=== PATIENT | male | born 1960 | race Caucasian/White ===

== ENCOUNTER 2020-01-21 18:08 | Inpatient (IN) | payer MEDICARE, MEDICAID, SELFPAY ==
--- NOTE | 2020-01-21 | CT_ITS ---
EXAMINATION: CT HEAD WITHOUT CONTRAST CT CERVICAL SPINE WITHOUT CONTRAST CLINICAL INFORMATION: Head trauma. Fall. COMPARISON: None. TECHNIQUE: Imaging was performed from the skull base to vertex without intravenous administration of contrast. In addition, helical noncontrast CT imaging was acquired through the cervical spine and source images were reviewed along with axial reconstructions and sagittal and coronal MPRs. [This CT examination was performed using dose optimization techniques as appropriate, variously including the following: *Automated exposure control *Adjustment of mA and/or kV according to patient size (this includes techniques or standardized protocols for targeted exams where dose is matched to indication/reason for exam; i.e. extremities or head) *Use of iterative reconstruction technique] DLP: 782.07+748.09 mGy-cm FINDINGS: HEAD: No intracranial mass, hemorrhage, or midline shift is visualized. There is atrophy with prominence of the ventricles and the sulci and hypodensity of the periventricular white matter due to chronic small vessel ischemic disease. There are vascular calcifications of the internal carotid arteries bilaterally. No extra-axial collections are identified. The paranasal sinuses and mastoid air cells are well aerated. CERVICAL SPINE: There is no evidence of acute cervical spine fracture. Vertebral bodies remain normal in height. Cervical vertebrae have normal alignment. There is multilevel degenerative spondylosis of the cervical spine with disc height narrowing and endplate spurs and facet joint arthrosis No pre- or paravertebral soft tissue abnormality is identified. Limited assessment of the lung apices is unremarkable. IMPRESSION: 1. No acute intracranial pathology. 2. No CT evidence of acute cervical spine fracture or traumatic subluxation
--- NOTE | 2020-01-21 | CT_ITS ---
EXAMINATION: CT ABDOMEN AND PELVIS WITHOUT CONTRAST CLINICAL INFORMATION: EtOH. Fall. COMPARISON: CT abdomen pelvis 04/07/2015 TECHNIQUE: Multidetector volumetric imaging was performed from the superior aspect of the liver through the pubic symphysis. Sagittal and coronal reformatted images were obtained on the technologist's workstation. This CT examination was performed using dose optimization techniques as appropriate, variously including the following: *Automated exposure control *Adjustment of mA and/or kV according to patient size (this includes techniques or standardized protocols for targeted exams where dose is matched to indication/reason for exam; i.e. extremities or head) *Use of iterative reconstruction technique DLP: 1244.43 mGy-cm FINDINGS: LUNG BASES: There is dependent atelectasis at lung bases. The heart size is enlarged. Moderate volume of coronary artery calcifications. Coarse reticular opacities at the right lung base. LIVER, GALLBLADDER, AND BILIARY TREE: The liver is normal in size, shape, and attenuation. No focal hepatic lesion or biliary ductal dilatation is present. The gallbladder is unremarkable with no evidence of radiopaque gallstones, gallbladder wall thickening, or obvious pericholecystic inflammatory changes. PANCREAS: Unremarkable. SPLEEN: Unremarkable. ADRENAL GLANDS: Unremarkable. KIDNEYS AND URETERS: Right kidney: There is a 2 mm stone in the lower pole and another in the midpole the right kidney. There is no ureteral calculus. There is no hydronephrosis. Left kidney: No calculus. No hydronephrosis. BLADDER: Unremarkable. GASTROINTESTINAL TRACT: There are scattered diverticula of the sigmoid colon and descending colon. There is no diverticulitis. There is no bowel wall thickening /edema. There is no bowel obstruction. There is a moderate volume of stool in the colon. The appendix is normal . The small bowel loops are unremarkable. The stomach is normal. There is no hiatal hernia. ABDOMINAL WALL: No significant hernia is appreciated. LYMPH NODES: There are subcentimeter retroperitoneal lymph nodes unchanged since CAT scan 04/07/2015. There is no bulky lymphadenopathy. VASCULAR: There are vascular calcifications throughout the abdomen and the pelvis. No aneurysm of the aorta. PELVIC VISCERA: Unremarkable. OSSEOUS STRUCTURES: Unremarkable. IMPRESSION: No acute abnormality CT scan abdomen pelvis.
--- NOTE | 2020-01-21 | XR_ITS ---
EXAMINATION: XR CHEST CLINICAL INFORMATION: EtOH. Trauma. COMPARISON: Chest x-ray 12/31/2019 TECHNIQUE: Frontal portable view of the chest was obtained. 8:45 PM FINDINGS: Persistent slight blunting of the right costophrenic angle due to a right pleural effusion unchanged since 12/31/2019. Lungs are clear. No pulmonary vascular congestion. Cardiac and mediastinal contours are unchanged. No pneumothorax. IMPRESSION: Small right pleural effusion. No change since prior study 12/31/2019.
--- NOTE | 2020-01-21 | ECG_ITS ---
Test Reason : ETOH Blood Pressure : / mmHG Vent. Rate : 094 BPM Atrial Rate : 119 BPM P-R Int : 000 ms QRS Dur : 110 ms QT Int : 394 ms P-R-T Axes : 000 -75 051 degrees QTc Int : 492 ms Atrial fibrillation Left axis deviation Low voltage QRS Inferior infarct , age undetermined Cannot rule out Anterior infarct (cited on or before 02-JUL-2016) Abnormal ECG When compared with ECG of 31-DEC-2019 11:34, Heart rate has decreased Referred By: Ila Darnell Electronically Signed By:VICENTE PAUL
[2020-01-21 18:18] VITALS: BP 133/88; PULSE 85; RESP 20; TEMP 36.6; O2SAT 96; BMI 40.5
--- NOTE | 2020-01-21 18:41 | PC.NURSE ---
brusing noted to luq, pt unsure if he fell.
--- NOTE | 2020-01-21 19:25 | ED_ITS ---
HPI - Alcohol General Chief Complaint: ETOH/Substance Use <Tirso Darnell NP - Last Filed: 01/22/20 02:50> Stated Complaint: AMS, ETOH <Tirso Darnell NP - Last Filed: 01/22/20 02:50> Time Seen by Provider: 01/21/20 19:18 <Tirso Darnell NP - Last Filed: 01/22/20 02:50> Mode of arrival: EMS <Tirso Darnell NP - Last Filed: 01/22/20 02:50> Limitations: other ( Alcohol intoxication, unable to follow simple directions) <Tirso Darnell NP - Last Filed: 01/22/20 02:50> History of Present Illness MD complaint: alcohol intoxication <Tirso Darnell NP - Last Filed: 01/22/20 02:50> Last drink: Hours (ago) <Tirso Darnell NP - Last Filed: 01/22/20 02:50> Chronic alcohol use: Yes <Tirso Darnell NP - Last Filed: 01/22/20 02:50> Previous visits for alcohol intoxication: Yes <Tirso Darnell NP - Last Filed: 01/22/20 02:50> Recent trauma: Yes <Tirso Darnell NP - Last Filed: 01/22/20 02:50> Related Data Home Medications: Home Medications Medication Instructions Recorded Confirmed apixaban [Eliquis] 1 tab PO BID 01/22/20 01/22/20 aspirin 1 tab PO DAILY 01/22/20 01/22/20 atorvastatin 1 tab PO BEDTIME 01/22/20 01/22/20 folic acid 1 tab PO DAILY 01/22/20 01/22/20 furosemide 1 tab PO BID 01/22/20 01/22/20 gabapentin 1 cap PO TID 01/22/20 01/22/20 magnesium oxide 1 tab PO BID 01/22/20 01/22/20 metformin 1 tab PO BID 01/22/20 01/22/20 metoprolol succinate 1 tab PO DAILY 01/22/20 01/22/20 multivitamin [Daily-Kenney] 1 tab PO DAILY 01/22/20 01/22/20 multivitamin [One Daily 1 tab PO DAILY 01/22/20 01/22/20 Multivitamin] omeprazole 1 cap PO DAILY 01/22/20 01/22/20 pyridoxine (vitamin B6) 1 tab PO DAILY 01/22/20 01/22/20 sacubitril-valsartan [Entresto] 1 tab PO BID 01/22/20 01/22/20 spironolactone 1 tab PO DAILY 01/22/20 01/22/20 thiamine HCl (vitamin B1) 1 tab PO DAILY 01/22/20 01/22/20 trazodone 1 tab PO BEDTIME 01/22/20 01/22/20 <Tirso Darnell NP - Last Filed: 01/22/20 02:50> Allergies/Adverse Reactions: Allergies Allergy/AdvReac Type Severity Reaction Status Date / Time Penicillins [PCN] Allergy Unknown UNKNOWN Verified 01/22/20 07:24 <Tirso Darnell NP - Last Filed: 01/22/20 02:50> Review of Systems Review of Systems: Yes Unobtainable due to mental status <Tirso Darnell NP - Last Filed: 01/22/20 02:50> Neurologic: Reports Abnormal speech present <Tirso Darnell NP - Last Filed: 01/22/20 02:50> [facility] Past Medical History Medical History: Medical History CAD (coronary artery disease) CHF (congestive heart failure) Diabetes ETOH abuse HTN (hypertension) Liver cirrhosis <Tirso Darnell NP - Last Filed: 01/22/20 02:50> Social History Social History: Social History Alcohol intake: current Alcohol intake frequency: 3 or more drinks per day Smoking Status: Current every day smoker Use of substances other than those prescribed or required for medical reasons: No Currently Displaying Signs/Symptoms of Drug Intoxication Withdrawal: No Advance Directives: No Advance Directives Information Provided: No Do you have thoughts of harming others: None <Tirso Darnell NP - Last Filed: 01/22/20 02:50> Physical Exam Vital Signs and I&O and Narrative: Vital Signs and I&O: Vital Signs Temp 98.5 F 01/22/20 15:57 Pulse 79 01/22/20 15:57 Resp 18 10/03/20 15:57 BP 142/79 H 01/22/20 15:57 Pulse Ox 97 01/22/20 15:57 Intake & Output 01/21/20 01/22/20 01/22/20 18:59 06:59 18:59 Intake Total Balance 1510.2 Weight 113.852 kg Intake: Intake, IV Amoun t 2010.2 0.9 % Sodium C hloride 1,000 ml 1000 / 1000 @ 999 mls/hr I VCONT .[address] Rx#:[id number] Folic Acid 1 m g Thiamine HCL 1011.2 / 1011.2 100 mg MVI, Ad ult 10 ml In 0.9 % Sodium Chlor mesha 1,000 ml @ 999 mls/hr IVC ONT .[address] Rx #:[id number] Body Mass Index 40.5 <Tirso Darnell NP - Last Filed: 01/22/20 02:50> Vital Signs and I&O: Vital Signs Temp 98.5 F 01/22/20 15:57 Pulse 79 01/22/20 15:57 Resp 18 01/22/20 15:57 BP 142/79 H 01/22/20 15:57 Pulse Ox 97 01/22/20 15:57 Intake & Output 01/21/20 01/22/20 01/22/20 18:59 06:59 18:59 Intake Total Balance 1510.2 Weight 113.852 kg Intake: Intake, IV Amoun t 2010.2 0.9 % Sodium C hloride 1,000 ml 1000 / 1000 @ 999 mls/hr I VCONT .Q[facility] [place] Rx#:[id number] Folic Acid 1 m g Thiamine HCL 1011.2 / 1011.2 100 mg MVI, Ad ult 10 ml In 0.9 % Sodium Chlor mesha 1,000 ml @ 999 mls/hr IVC ONT .[address] Rx #:[id number] Body Mass Index 40.5 <Chay Law, DO - Last Filed: 01/22/20 18:17> Const: Other: somnolent but arousable, and able to answer questions appropriately <Tirso Darnell NP - Last Filed: 01/22/20 02:50> General: intoxicated appearing <Tirso Darnell NP - Last Filed: 01/22/20 02:50> Nutritional Appearance: obese <Tirso Darnell NP - Last Filed: 01/22/20 02:50> Orientation/consciousness: patient oriented x3 and Other orientation findings ( intoxicated, unable to follow directions) <Tirso Darnell [employer]SEMBL[employer] MEMBER - Last Filed: 01/22/20 02:50> HENMT: Head: Yes No palpable skull fracture present, Yes normocephalic, Yes atraumatic, No hematoma, No laceration, No raccoon eyes, No scalp lesion and No scalp tenderness <Tirso Darnell [employer]SEM[employer] MEMBER - Last Filed: 01/22/20 02:50> Ears: TM's normal bilaterally <Tirso Darnell [employer]SEM[employer] MEMBER - Last Filed: 01/22/20 02:50> General nose exam: Normal external nose present and Normal septum present <Tirso Darnell NP - Last Filed: 01/22/20 02:50> Face and sinus: Yes normal facial exam <Tirso Darnell [employer]SEM[employer] MEMBER - Last Filed: 01/22/20 02:50> Mouth: Normal oral and palatal mucosa present <Tirso Darnell NP - Last Filed: 01/22/20 02:50> Teeth and gingiva: dentition normal <Tirso Darnell [employer]SEM[employer] MEMBER - Last Filed: 01/22/20 02:50> Eyes: General: appearance normal, both eyes and all related structures <Tirso Darnell NP - Last Filed: 01/22/20 02:50> Pupils: Equal, round and reactive pupils present <Tirso Darnell NP - Last Filed: 01/22/20 02:50> Neck: Neck: Yes normal visual inspection and Yes full ROM <Tirso Darnell NP - Last Filed: 01/22/20 02:50> Chest: Chest palpation & inspection: normal inspection of the chest <Tirso Darnell NP - Last Filed: 01/22/20 02:50> Resp: Effort & Inspection: normal respiratory effort and audible wheezes <Tirso Darnell NP - Last Filed: 01/22/20 02:50> Auscultation: wheezes scattered wheezes and diminished lung sounds <Tirso Darnell [employer]SEM[employer] MEMBER - Last Filed: 01/22/20 02:50> Cardio: Jugular venous distension: no JVD <Tirso Darnell [employer]SEMBL[employer] MEMBER - Last Filed: 01/22/20 02:50> Rate: regular rate <Tirso Darnell [employer]SEMBL[employer] MEMBER - Last Filed: 01/22/20 02:50> Rhythm: regular rhythm <Tirso Darnell ASSEMBL[employer] MEMBER - Last Filed: 01/22/20 02:50> GI: Inspection: Yes obesity <Tirso Darnell [employer]SEM[employer] MEMBER - Last Filed: 01/22/20 02:50> Palpation (GI): Soft to palpation <Tirso Darnell ASSEMBL[employer] MEMBER - Last Filed: 01/22/20 02:50> Auscultation: normal bowel sounds <Tirso Darnell [employer]SEMBL[employer] MEMBER - Last Filed: 01/22/20 02:50> Back/Spine/Pelvis: Thoracic/Lumbar Spine: thoracic and lumbar spine normal to inspection <Tirso Darnell [employer]SEMBL[employer] MEMBER - Last Filed: 01/22/20 02:50> Pelvis: no pain with anterior-posterior compression and no pain with lateral compression <Tirso Darnell [employer]SEMBL[employer] MEMBER - Last Filed: 01/22/20 02:50> Skin: General skin exam: ecchymosis ( left-sided abdomen, small umbilical ecchymosis) <Tirso Darnell [employer]SEMBL[employer] MEMBER - Last Filed: 01/22/20 02:50> Trauma: abrasion ( left side of abdomen) <Tirso Darnell [employer]SEMBL[employer] MEMBER - Last Filed: 01/22/20 02:50> Neuro: General: patient oriented x3 <Tirso Darnell [employer]SEM[employer] MEMBER - Last Filed: 01/22/20 02:50> Cranial nerves: Yes Equal, round and reactive pupils present <Tirso Darnell NP - Last Filed: 01/22/20 02:50> Cognition (Neuro): normal cognition <Tirso Darnell NP - Last Filed: 01/22/20 02:50> Speech: Abnormal speech present <Tirso Darnell NP - Last Filed: 01/22/20 02:50> Extrem: General: Yes normal to inspection and Yes no pedal edema <Tirso Darnell NP - Last Filed: 01/22/20 02:50> Course Course Hospital Course: 59-year-old male presents with ETOH intoxication and fall. He is not able to answer any questions at this time. He does have significant bruising And superficial abrasion to the left side of the abdomen, and is reported that he may have hit his head. He does drink alcohol on a daily basis in excessive amounts. <Tirso Darnell NP - Last Filed: 01/22/20 02:50> Reevaluation(s) Reevaluation #1: Patient is sleeping, arousable with sternal rub, unable to follow simple directions possibly secondary to ETOH intoxication. ETOH level is 360. <Tirso Darnell NP - Last Filed: 01/22/20 02:50> Time: 23:18 <Tirso Darnell NP - Last Filed: 01/22/20 02:50> Reevaluation #2: patient is sleeping, vital signs are hemodynamically stable, easily arousable. still having difficulty with simple directions. A bit more responsive than prior evaluation. <Tirso Darnell NP - Last Filed: 01/22/20 02:50> Time: 00:08 <Tirso Darnell NP - Last Filed: 01/22/20 02:50> Reevaluation #3: patient is alert oriented at this time, answering questions in complete sentences. 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 His face is tremors and states to have significant anxiety at this time. he does not recall how he came to the emergency department, does not recall falling earlier today. He is able to move all extremities against resistance, is not complaining of any pain, chest pain or pressure, palpitations, shortness breath, abdominal pain, abdominal distention, dizziness or lightheadedness. We did discuss all diagnostic and labs. <NAZIA Fiore Last Filed: 01/22/20 02:50> Time: 01:27 <Tirso Darnell NP - Last Filed: 01/22/20 02:50> Additional Reevaluation(s): Discussion with hospitalist regarding plan of care, plan is to admit for ETOH Withdrawal and AFib. patient verbalized understanding of and agrees to plan of care. <Tirso Darnell NP - Last Filed: 01/22/20 02:50> Consultations Consultation #1: Greg <Tirso Darnell NP - Last Filed: 01/22/20 02:50> Procedures FAST Exam FAST Exam 1: Fluid in Morison's pouch: No <Tirso Darnell NP - Last Filed: 01/22/20 02:50> Fluid in Splenorenal Junction: No <Tirso Darnell NP - Last Filed: 01/22/20 02:50> Fluid around bladder, Transverse view: No <Tirso Darnell NP - Last Filed: 01/22/20 02:50> Fluid around bladder, Sagittal view: No <Tirso Darnell NP - Last Filed: 01/22/20 02:50> Fluid in Pericardial Sac: No <Tirso Darnell NP - Last Filed: 01/22/20 02:50> Gross Wall Motion Abnormality: No <Tirso Darnell NP - Last Filed: 01/22/20 02:50> Study normal for this patient: Yes <Tirso Darnell NP - Last Filed: 01/22/20 02:50> Images saved for further review: No <Tirso Darnell NP - Last Filed: 01/22/20 02:50> MDM - Alcohol Differential Diagnosis Differential diagnosis: Likely alcohol dependence and alcohol withdrawal delirium <Tirso Darnell NP - Last Filed: 01/22/20 02:50> Medical Records Attestation: I reviewed the patient's medical records. <Tirso Darnell NP - Last Filed: 01/22/20 02:50> Lab Data Attestation: I reviewed the patient's lab results. <Tirso Darnell NP - Last Filed: 01/22/20 02:50> Result diagrams: : 01/21/20 19:56 01/22/20 08:55 <Tirso Darnell NP - Last Filed: 01/22/20 02:50> Labs: Lab Results 01/21/20 01/21/20 01/21/20 Range/Units 19:56 19:56 19:56 WBC 8.6 (4.8-10.8) X10*3/uL RBC 4.62 (4.60-5.80) X10*6/uL Hgb 14.8 (14.0-18.0) g/dl Hct 44.1 (42-52) % MCV 95.5 (80-98) fL MCH 32.0 (27.0-33.0) pg MCHC 33.6 (31.0-36.0) g/dl RDW 12.3 (11.0-16.0) % Plt Count 175 (160-400) X10*3/uL MPV 10.1 (9.4-12.4) fL Immature Gran % (Auto) 0.5 H (0.0-0.4) % Neut % (Auto) 70.1 (45-73) % Lymph % (Auto) 21.3 (20-40) % [place] % (Auto) 6.3 (2-11) % Eos % (Auto) 1.5 (0-4) % Baso % (Auto) 0.3 (0-2) % Neut # (Auto) 6.0 (2.0-8.3) X10*3/uL Lymph # (Auto) 1.8 (1.2-4.9) X10*3/uL [place] # (Auto) 0.5 (0.1-1.2) X10*3/uL Eos # (Auto) 0.1 (0.0-0.4) X10*3/uL Baso # (Auto) 0.0 (0.0-0.2) X10*3/uL Abs Immat Gran (auto) 0.04 H (0.00-0.03) X10*3/uL Absolute Nucleated RBC 0.000 (0.0-0.012) X10*3/uL Nucleated RBC % (auto) 0.0 (0.0-0.2) /100WBC POC Glucose (60-115) mg/dL Magnesium (1.6-2.6) mg/dL Troponin I High Sens (<3.5-35.0) ng/L Salicylates < 5.0 L (15-30) mg/dL Urine Opiates Screen (Not Detect) Acetaminophen < 1 (<30) mcg/mL Ur Barbiturates Screen (Not Detect) Ur Phencyclidine Scrn (Not Detect) Ur Amphetamines Screen (Not Detect) U Benzodiazepines Scrn (Not Detect) Urine Cocaine Screen (Not Detect) U Marijuana (THC) Screen (Not Detect) Ethyl Alcohol 336 H* mg/dL 01/21/20 01/21/20 01/21/20 Range/Units 19:56 19:56 20:14 WBC (4.8-10.8) X10*3/uL RBC (4.60-5.80) X10*6/uL Hgb (14.0-18.0) g/dl Hct (42-52) % MCV (80-98) fL MCH (27.0-33.0) pg MCHC (31.0-36.0) g/dl RDW (11.0-16.0) % Plt Count (160-400) X10*3/uL MPV (9.4-12.4) fL Immature Gran % (Auto) (0.0-0.4) % Neut % (Auto) (45-73) % Lymph % (Auto) (20-40) % [place] % (Auto) (2-11) % Eos % (Auto) (0-4) % Baso % (Auto) (0-2) % Neut # (Auto) (2.0-8.3) X10*3/uL Lymph # (Auto) (1.2-4.9) X10*3/uL [place] # (Auto) (0.1-1.2) X10*3/uL Eos # (Auto) (0.0-0.4) X10*3/uL Baso # (Auto) (0.0-0.2) X10*3/uL Abs Immat Gran (auto) (0.00-0.03) X10*3/uL Absolute Nucleated RBC (0.0-0.012) X10*3/uL Nucleated RBC % (auto) (0.0-0.2) /100WBC POC Glucose (60-115) mg/dL Magnesium 1.8 (1.6-2.6) mg/dL Troponin I High Sens 9.4 (<3.5-35.0) ng/L Salicylates (15-30) mg/dL Urine Opiates Screen Not Detected (Not Detect) Acetaminophen (<30) mcg/mL Ur Barbiturates Screen Not Detected (Not Detect) Ur Phencyclidine Scrn Not Detected (Not Detect) Ur Amphetamines Screen Not Detected (Not Detect) U Benzodiazepines Scrn Not Detected (Not Detect) Urine Cocaine Screen Not Detected (Not Detect) U Marijuana (THC) Screen Not Detected (Not Detect) Ethyl Alcohol mg/dL 01/22/20 Range/Units 01:31 WBC (4.8-10.8) X10*3/uL RBC (4.60-5.80) X10*6/uL Hgb (14.0-18.0) g/dl Hct (42-52) % MCV (80-98) fL MCH (27.0-33.0) pg MCHC (31.0-36.0) g/dl RDW (11.0-16.0) % Plt Count (160-400) X10*3/uL MPV (9.4-12.4) fL Immature Gran % (Auto) (0.0-0.4) % Neut % (Auto) (45-73) % Lymph % (Auto) (20-40) % [place] % (Auto) (2-11) % Eos % (Auto) (0-4) % Baso % (Auto) (0-2) % Neut # (Auto) (2.0-8.3) X10*3/uL Lymph # (Auto) (1.2-4.9) X10*3/uL [place] # (Auto) (0.1-1.2) X10*3/uL Eos # (Auto) (0.0-0.4) X10*3/uL Baso # (Auto) (0.0-0.2) X10*3/uL Abs Immat Gran (auto) (0.00-0.03) X10*3/uL Absolute Nucleated RBC (0.0-0.012) X10*3/uL Nucleated RBC % (auto) (0.0-0.2) /100WBC POC Glucose 154 H (60-115) mg/dL Magnesium (1.6-2.6) mg/dL Troponin I High Sens (<3.5-35.0) ng/L Salicylates (15-30) mg/dL Urine Opiates Screen (Not Detect) Acetaminophen (<30) mcg/mL Ur Barbiturates Screen (Not Detect) Ur Phencyclidine Scrn (Not Detect) Ur Amphetamines Screen (Not Detect) U Benzodiazepines Scrn (Not Detect) Urine Cocaine Screen (Not Detect) U Marijuana (THC) Screen (Not Detect) Ethyl Alcohol mg/dL <Tirso Darnell NP - Last Filed: 01/22/20 02:50> Lab Results 01/21/20 01/21/20 01/21/20 Range/Units 19:56 19:56 19:56 WBC 8.6 (4.8-10.8) X10*3/uL RBC 4.62 (4.60-5.80) X10*6/uL Hgb 14.8 (14.0-18.0) g/dl Hct 44.1 (42-52) % MCV 95.5 (80-98) fL MCH 32.0 (27.0-33.0) pg MCHC 33.6 (31.0-36.0) g/dl RDW 12.3 (11.0-16.0) % Plt Count 175 (160-400) X10*3/uL MPV 10.1 (9.4-12.4) fL Immature Gran % (Auto) 0.5 H (0.0-0.4) % Neut % (Auto) 70.1 (45-73) % Lymph % (Auto) 21.3 (20-40) % [place] % (Auto) 6.3 (2-11) % Eos % (Auto) 1.5 (0-4) % Baso % (Auto) 0.3 (0-2) % Neut # (Auto) 6.0 (2.0-8.3) X10*3/uL Lymph # (Auto) 1.8 (1.2-4.9) X10*3/uL [place] # (Auto) 0.5 (0.1-1.2) X10*3/uL Eos # (Auto) 0.1 (0.0-0.4) X10*3/uL Baso # (Auto) 0.0 (0.0-0.2) X10*3/uL Abs Immat Gran (auto) 0.04 H (0.00-0.03) X10*3/uL Absolute Nucleated RBC 0.000 (0.0-0.012) X10*3/uL Nucleated RBC % (auto) 0.0 (0.0-0.2) /100WBC POC Glucose (60-115) mg/dL Magnesium (1.6-2.6) mg/dL Troponin I High Sens (<3.5-35.0) ng/L Salicylates < 5.0 L (15-30) mg/dL Urine Opiates Screen (Not Detect) Acetaminophen < 1 (<30) mcg/mL Ur Barbiturates Screen (Not Detect) Ur Phencyclidine Scrn (Not Detect) Ur Amphetamines Screen (Not Detect) U Benzodiazepines Scrn (Not Detect) Urine Cocaine Screen (Not Detect) U Marijuana (THC) Screen (Not Detect) Ethyl Alcohol 336 H* mg/dL 01/21/20 01/21/20 01/21/20 Range/Units 19:56 19:56 20:14 WBC (4.8-10.8) X10*3/uL RBC (4.60-5.80) X10*6/uL Hgb (14.0-18.0) g/dl Hct (42-52) % MCV (80-98) fL MCH (27.0-33.0) pg MCHC (31.0-36.0) g/dl RDW (11.0-16.0) % Plt Count (160-400) X10*3/uL MPV (9.4-12.4) fL Immature Gran % (Auto) (0.0-0.4) % Neut % (Auto) (45-73) % Lymph % (Auto) (20-40) % [place] % (Auto) (2-11) % Eos % (Auto) (0-4) % Baso % (Auto) (0-2) % Neut # (Auto) (2.0-8.3) X10*3/uL Lymph # (Auto) (1.2-4.9) X10*3/uL [place] # (Auto) (0.1-1.2) X10*3/uL Eos # (Auto) (0.0-0.4) X10*3/uL Baso # (Auto) (0.0-0.2) X10*3/uL Abs Immat Gran (auto) (0.00-0.03) X10*3/uL Absolute Nucleated RBC (0.0-0.012) X10*3/uL Nucleated RBC % (auto) (0.0-0.2) /100WBC POC Glucose (60-115) mg/dL Magnesium 1.8 (1.6-2.6) mg/dL Troponin I High Sens 9.4 (<3.5-35.0) ng/L Salicylates (15-30) mg/dL Urine Opiates Screen Not Detected (Not Detect) Acetaminophen (<30) mcg/mL Ur Barbiturates Screen Not Detected (Not Detect) Ur Phencyclidine Scrn Not Detected (Not Detect) Ur Amphetamines Screen Not Detected (Not Detect) U Benzodiazepines Scrn Not Detected (Not Detect) Urine Cocaine Screen Not Detected (Not Detect) U Marijuana (THC) Screen Not Detected (Not Detect) Ethyl Alcohol mg/dL 01/22/20 Range/Units 01:31 WBC (4.8-10.8) X10*3/uL RBC (4.60-5.80) X10*6/uL Hgb (14.0-18.0) g/dl Hct (42-52) % MCV (80-98) fL MCH (27.0-33.0) pg MCHC (31.0-36.0) g/dl RDW (11.0-16.0) % Plt Count (160-400) X10*3/uL MPV (9.4-12.4) fL Immature Gran % (Auto) (0.0-0.4) % Neut % (Auto) (45-73) % Lymph % (Auto) (20-40) % [place] % (Auto) (2-11) % Eos % (Auto) (0-4) % Baso % (Auto) (0-2) % Neut # (Auto) (2.0-8.3) X10*3/uL Lymph # (Auto) (1.2-4.9) X10*3/uL [place] # (Auto) (0.1-1.2) X10*3/uL Eos # (Auto) (0.0-0.4) X10*3/uL Baso # (Auto) (0.0-0.2) X10*3/uL Abs Immat Gran (auto) (0.00-0.03) X10*3/uL Absolute Nucleated RBC (0.0-0.012) X10*3/uL Nucleated RBC % (auto) (0.0-0.2) /100WBC POC Glucose 154 H (60-115) mg/dL Magnesium (1.6-2.6) mg/dL Troponin I High Sens (<3.5-35.0) ng/L Salicylates (15-30) mg/dL Urine Opiates Screen (Not Detect) Acetaminophen (<30) mcg/mL Ur Barbiturates Screen (Not Detect) Ur Phencyclidine Scrn (Not Detect) Ur Amphetamines Screen (Not Detect) U Benzodiazepines Scrn (Not Detect) Urine Cocaine Screen (Not Detect) U Marijuana (THC) Screen (Not Detect) Ethyl Alcohol mg/dL <Chay Law DO - Last Filed: 01/22/20 18:17> Imaging Data Chest x-ray: Attestation: I personally reviewed and interpreted this imaging study as follows: <Tirso Darnell NP - Last Filed: 01/22/20 02:50> Radiologist's impression: [place] [id number] XRay Report Signed Patient: Saad Lilly#: [id number] : 2Acct:[id number] Age/Sex: 59 / MADM Date: 01/21/20 Loc: [facility].ED Attending Dr: Ordering Physician: TIRSO DARNELL NP Date of Service: 01/21/20 Procedure(s): XR chest 1V Accession Number(s): [id number] cc: ~ EXAMINATION: XR CHEST CLINICAL INFORMATION: EtOH. Trauma. COMPARISON: Chest x-ray 12/31/2019 TECHNIQUE: Frontal portable view of the chest was obtained. 8:45 PM FINDINGS: Persistent slight blunting of the right costophrenic angle due to a right pleural effusion unchanged since 12/31/2019. Lungs are clear. No pulmonary vascular congestion. Cardiac and mediastinal contours are unchanged. No pneumothorax. IMPRESSION: Small right pleural effusion. No change since prior study 12/31/2019 <Tirso Darnell NP - Last Filed: 01/22/20 02:50> CT scan - head: Attestation: I personally reviewed and interpreted this imaging study as follows: <Tirso Darnell NP - Last Filed: 01/22/20 02:50> Radiologist's impression: HEAD: No intracranial mass, hemorrhage, or midline shift is vis ualized. There is atrophy with prominence of the ventricles and the sulci and hypodensity of the periventricular white matter due to chronic small vessel ischemic disease. There are vascular calcifications of the internal carotid arteries bilaterally. No extra-axial collections are identified. The paranasal sinuses and mastoid air cells are well aerated. CERVICAL SPINE: There is no evidence of acute cervical spine fracture. Vertebral bodies remain normal in height. Cervical vertebrae have normal alignment. There is multilevel degenerative spondylosis of the cervical spine with disc height narrowing and endplate spurs and facet joint arthrosis No pre- or paravertebral soft tissue abnormality is identified. Limited assessment of the lung apices is unremarkable. IMPRESSION: 1. No acute intracranial pathology. 2. No CT evidence of acute cervical spine fracture or traumatic subluxation <Tirso Darnell NP - Last Filed: 01/22/20 02:50> CT scan - pelvis: Attestation: I personally reviewed and interpreted this imaging study as follows: <Tirso Darnell NP - Last Filed: 01/22/20 02:50> Radiologist's impression: LUNG BASES: There is dependent atelectasis at lung bases. The heart size is enlarged. Moderate volume of coronary artery calcifications. Coarse reticular opacities at the right lung base. LIVER, GALLBLADDER, AND BILIARY TREE: The liver is normal in size, shape, and attenuation. No focal hepatic lesion or biliary ductal dilatation is present. The gallbladder is unremarkable with no evidence of radiopaque gallstones, gallbladder wall thickening, or obvious pericholecystic inflammatory changes. PANCREAS: Unremarkable. SPLEEN: Unremarkable. ADRENAL GLANDS: Unremarkable. KIDNEYS AND URETERS: Right kidney: There is a 2 mm stone in the lower pole and another in the midpole the right kidney. There is no ureteral calculus. There is no hydronephrosis. Left kidney: No calculus. No hydronephrosis. BLADDER: Unremarkable. GASTROINTESTINAL TRACT: There are scattered diverticula of the sigmoid colon and descending colon. There is no diverticulitis. There is no bowel wall thickening /edema. There is no bowel obstruction. There is a moderate volume of stool in the colon. The appendix is normal . The small bowel loops are unremarkable. The stomach is normal. There is no hiatal hernia. ABDOMINAL WALL: No significant hernia is appreciated. LYMPH NODES: There are subcentimeter retroperitoneal lymph nodes unchanged since CAT scan 04/07/2015. There is no bulky lymphadenopathy. VASCULAR: There are vascular calcifications throughout the abdomen and the pelvis. No aneurysm of the aorta. PELVIC VISCERA: Unremarkable. OSSEOUS STRUCTURES: Unremarkable. IMPRESSION: No acute abnormality CT scan abdomen pelvis. <Tirso Darnell NP - Last Filed: 01/22/20 02:50> ECG Data Attestation: I personally reviewed and interpreted this ECG as follows: <Tirso Darnell NP - Last Filed: 01/22/20 02:50> ECG interpretation date: 01/21/20 <Tirso Darnell NP - Last Filed: 01/22/20 02:50> ECG interpretation time: 20:16 <Tirso Darnell NP - Last Filed: 01/22/20 02:50> Prior ECG tracings: available for review ( Compared to both EKGs on December 31, 2019, when compared to EKG on December 31, 2019 at 00:47 no significant changes noted) <Tirso Darnell NP - Last Filed: 01/22/20 02:50> Interpretation: atrial fibrillation Ventricular rate 94 beats per minute with left axis deviation. QT 394 QTC 492, low-voltage QRS with inferior infarct age undetermined.When compared with ECG of 31-DEC-2019 11:34, Previous ECG has undetermined rhythm <Tirso Darnell NP - Last Filed: 01/22/20 02:50> Discharge Plan Discharge Clinical Impression: Alcohol withdrawal syndrome Qualifiers: Complication of substance-induced condition: uncomplicated Qualified Code(s): F10.230 - Alcohol dependence with withdrawal, uncomplicated A-fib Qualifiers: Atrial fibrillation type: unspecified Qualified Code(s): I48.91 - Unspecified atrial fibrillation <NAZIA Fiore Last Filed: 01/22/20 02:50> Patient Disposition: Admitted As Inpatient <NAZIA Fiore Last Filed: 01/22/20 02:50> Interventions: Admission Worksheet (ED) Last Done: 01/22/20 05:32 <Tirso Darnell NP - Last Filed: 01/22/20 02:50> Discharge Date/Time: 01/22/20 05:15 <Tirso Darnell NP - Last Filed: 01/22/20 02:50>
[2020-01-21 20:05] LABS: MANUAL DIFF FLAG NO
[2020-01-21 20:06] LABS: Basophils Percent Auto 0.3 % (0-2); Eosinophils Absolute Auto 0.1 X10*3/uL (0.0-0.4); Eosinophils Percent Auto 1.5 % (0-4); Hematocrit 44.1 % (42-52); Hemoglobin 14.8 g/dl (14.0-18.0); Imm Gran Abs Auto 0.04 X10*3/uL (0.00-0.03); Imm Gran Pct Auto 0.5 % (0.0-0.4); Lymphocytes Absolute Auto 1.8 X10*3/uL (1.2-4.9); Lymphocytes Percent Auto 21.3 % (20-40); Mean Corpuscular HGB Conc 33.6 g/dl (31.0-36.0); Mean Corpuscular Volume 95.5 fL (80-98); Mean Platelet Volume 10.1 fL (9.4-12.4); Monocytes Absolute Auto 0.5 X10*3/uL (0.1-1.2); Monocytes Percent Auto 6.3 % (2-11); Neutrophils Percent Auto 70.1 % (45-73); Platelet Count 175 X10*3/uL (160-400); Red Blood Count 4.62 X10*6/uL (4.60-5.80); Red Cell Distribution Width 12.3 % (11.0-16.0); White Blood Count 8.6 X10*3/uL (4.8-10.8)
--- NOTE | 2020-01-21 20:24 | PC.NURSE ---
pharmacy called pharmacy for iv banana bag to be sent
[2020-01-21 20:29] LABS: Magnesium 1.8 mg/dL (1.6-2.6)
[2020-01-21 20:30] LABS: Acetaminophen LAB < 1 mcg/mL (<30); Salicylate < 5.0 mg/dL (15-30)
[2020-01-21 20:34] LABS: Troponin-I High Sensitivity 9.4 ng/L (<3.5-35.0)
[2020-01-21 20:40] LABS: Ethanol 336 mg/dL
[2020-01-21 20:54] LABS: Amphetamine Screen Urine Not Detected (Not Detect); Barbiturates, Urine Not Detected (Not Detect); Benzodiazepines Screen Urine Not Detected (Not Detect); Cannabinoid Screen Urine Not Detected (Not Detect); Cocaine Screen Urine Not Detected (Not Detect); Opiate Screen Urine Not Detected (Not Detect); Phencyclidine Screen Urine Not Detected (Not Detect)
[2020-01-21 21:28] VITALS: BP 131/88; PULSE 84; RESP 13; O2SAT 98
[2020-01-21 22:00] VITALS: BP 121/81; PULSE 84; RESP 16; TEMP 36.6; O2SAT 96
[2020-01-21 23:51] VITALS: BP 130/94; PULSE 92; RESP 15; O2SAT 96
--- NOTE | 2020-01-21 23:51 | PC.NURSE ---
pt sleeping, wakes easily and has good respiratory effort and rate.
[2020-01-21] MEDS: 0.9 % Sodium Chloride 1,000 ML 999 ML IVCONT (23:56)
--- NOTE | 2020-01-22 00:45 | PC.NURSE ---
PT WILL REMAIN WITH US OVERNIGHT, PROVIDER CONSULTING WITH HOSPITALIST.
[2020-01-22] MEDS: PHENobarbitaL sodium 130 MG/ML VIAL 307 MG IM (00:50)
[2020-01-22 01:34] LABS: Glucose, Whole Blood 154 mg/dL (60-115)
--- NOTE | 2020-01-22 01:56 | P.HPIM_ITS ---
History of Present Illness Date of Service: 01/22/20 Chief Complaint: alcohol abuse, fall patient speaks Citizen Of [place] only and history is obtained with the help of motor vehicle parts interpreter this is a 59-year-old male with past medical history of alcohol abuse, liver cirrhosis, CHF with reduced ejection fraction, type 2 diabetes, HTN, HLD, AFib, CAD, depression, acid reflux who presents to the ED after having a fall at home. Patient does not remember a lot of the events around the fall but reports that he was drinking heavily, had a fall, and called EMS. On arrival to the ED it appears that patient was significantly intoxicated but is now alert and oriented. He reports that he drinks more than a case of beer a day and rum. He is interested in quitting and would like to start drinking alcohol. He does not remember a lot of details around the fall and is unclear if he lost any consciousness. He does not remember having any palpitations, does not remember having any dizziness as does not remember having seizure-like episode. Review of systems significant for intermittent shortness of breath, no lower extremity swelling, orthopnea PND. He is complaining of urinary frequency with no urgency or dysuria. Otherwise denies any fever or chills, no abdominal pain nausea or vomiting, no chest pain, currently has no shortness of breath, Diarrhea constipation and no lower extremity edema. on arrival to the ED hemodynamically stable CBC unremarkable, UDS significant for alcohol level 336 patient will be admitted further management past medical history: CHF with reduced ejection fraction, type 2 diabetes, HTN, HLD, AFib not on anticoagulation due to alcohol abuse, coronary artery disease, acid reflux, liver cirrhosis, alcohol abuse, depression surgical history: PCI, family history: Denies social history: Comes from home, lives at home alone, he drinks more than 10 beers a day as well as ROM, smokes cigarettes on and off, denies any illicit drugs Review of Systems Review of Systems: Yes all other systems are reviewed and are negative Neurologic: Reports Abnormal speech present [facility] Medical History Diabetes ETOH abuse HTN (hypertension) Social History Alcohol intake: current Alcohol intake frequency: 3 or more drinks per day Smoking Status: Current every day smoker Use of substances other than those prescribed or required for medical reasons: No Advance Directives: No Advance Directives Information Provided: No Meds Allergies Allergy/AdvReac Type Severity Reaction Status Date / Time Penicillins [PCN] Allergy Unknown UNKNOWN Unverified 01/06/20 15:38 Home Medications Medication Instructions Recorded Confirmed Type apixaban [Eliquis] 1 tab PO BID 01/22/20 01/22/20 History aspirin 1 tab PO DAILY 01/22/20 01/22/20 History atorvastatin 1 tab PO BEDTIME 01/22/20 01/22/20 History folic acid 1 tab PO DAILY 01/22/20 01/22/20 History furosemide 1 tab PO BID 01/22/20 01/22/20 History gabapentin 1 cap PO TID 01/22/20 01/22/20 History magnesium oxide 1 tab PO BID 01/22/20 01/22/20 History metformin 1 tab PO BID 01/22/20 01/22/20 History metoprolol succinate 1 tab PO DAILY 01/22/20 01/22/20 History multivitamin [Daily-[place]] 1 tab PO DAILY 01/22/20 01/22/20 History multivitamin [One Daily 1 tab PO DAILY 01/22/20 01/22/20 History Multivitamin] omeprazole 1 cap PO DAILY 01/22/20 01/22/20 History pyridoxine (vitamin B6) 1 tab PO DAILY 01/22/20 01/22/20 History sacubitril-valsartan [Entresto] 1 tab PO BID 01/22/20 01/22/20 History spironolactone 1 tab PO DAILY 01/22/20 01/22/20 History thiamine HCl (vitamin B1) 1 tab PO DAILY 01/22/20 01/22/20 History trazodone 1 tab PO BEDTIME 01/22/20 01/22/20 History Physical Exam Vital Signs and Narrative: Vital Signs: Last Vital Signs Temp 97.8 F 01/21/20 22:00 Pulse 92 01/21/20 23:51 Resp 15 01/21/20 23:51 BP 130/94 H 01/21/20 23:51 Pulse Ox 96 01/21/20 23:51 Body Mass Index 40.5 Const: Other: somnolent but arousable, and able to answer questions appropriately General: cooperative and no acute distress Orientation/consciousness: patient oriented x3 Eyes: General: appearance normal, both eyes and all related structures Pupils: Equal, round and reactive pupils present Resp: Effort & Inspection: normal respiratory effort, able to speak in complete sentences and abnormal respiratory pattern Auscultation: clear to auscultation bilaterally Cardio: Rate: regular rate Rhythm: regular rhythm GI: Palpation (GI): Soft to palpation Auscultation: normal bowel sounds Skin: General skin exam: no rashes or lesions noted Neuro: General: patient oriented x3 Cranial nerves: Yes Equal, round and reactive pupils present Cognition (Neuro): normal cognition Speech: Abnormal speech present Extrem: General: Yes normal to inspection and Yes no pedal edema Results Labs Labs: Laboratory Tests 01/21/20 01/21/20 01/21/20 19:56 19:56 19:56 WBC 8.6 RBC 4.62 Hgb 14.8 Hct 44.1 MCV 95.5 MCH 32.0 MCHC 33.6 RDW 12.3 Plt Count 175 MPV 10.1 Immature Gran % (Auto) 0.5 H Neut % (Auto) 70.1 Lymph % (Auto) 21.3 [place] % (Auto) 6.3 Eos % (Auto) 1.5 Baso % (Auto) 0.3 Neut # (Auto) 6.0 Lymph # (Auto) 1.8 [place] # (Auto) 0.5 Eos # (Auto) 0.1 Baso # (Auto) 0.0 Abs Immat Gran (auto) 0.04 H Absolute Nucleated RBC 0.000 Nucleated RBC % (auto) 0.0 POC Glucose Magnesium Troponin I High Sens Salicylates < 5.0 L Urine Opiates Screen Acetaminophen < 1 Ur Barbiturates Screen Ur Phencyclidine Scrn Ur Amphetamines Screen U Benzodiazepines Scrn Urine Cocaine Screen U Marijuana (THC) Screen Ethyl Alcohol 336 H* 01/21/20 01/21/20 01/21/20 19:56 19:56 20:14 WBC RBC Hgb Hct MCV MCH MCHC RDW Plt Count MPV Immature Gran % (Auto) Neut % (Auto) Lymph % (Auto) [place] % (Auto) Eos % (Auto) Baso % (Auto) Neut # (Auto) Lymph # (Auto) [place] # (Auto) Eos # (Auto) Baso # (Auto) Abs Immat Gran (auto) Absolute Nucleated RBC Nucleated RBC % (auto) POC Glucose Magnesium 1.8 Troponin I High Sens 9.4 Salicylates Urine Opiates Screen Not Detected Acetaminophen Ur Barbiturates Screen Not Detected Ur Phencyclidine Scrn Not Detected Ur Amphetamines Screen Not Detected U Benzodiazepines Scrn Not Detected Urine Cocaine Screen Not Detected U Marijuana (THC) Screen Not Detected Ethyl Alcohol 01/22/20 01:31 WBC RBC Hgb Hct MCV MCH MCHC RDW Plt Count MPV Immature Gran % (Auto) Neut % (Auto) Lymph % (Auto) [place] % (Auto) Eos % (Auto) Baso % (Auto) Neut # (Auto) Lymph # (Auto) [place] # (Auto) Eos # (Auto) Baso # (Auto) Abs Immat Gran (auto) Absolute Nucleated RBC Nucleated RBC % (auto) POC Glucose 154 H Magnesium Troponin I High Sens Salicylates Urine Opiates Screen Acetaminophen Ur Barbiturates Screen Ur Phencyclidine Scrn Ur Amphetamines Screen U Benzodiazepines Scrn Urine Cocaine Screen U Marijuana (THC) Screen Ethyl Alcohol Assessment and Plan (1) ETOH abuse: Status: Acute (2) Alcohol withdrawal syndrome: Qualifiers: Complication of substance-induced condition: uncomplicated Qualified Code(s): F10.230 - Alcohol dependence with withdrawal, uncomplicated Status: Acute (3) Fall: Status: Acute (4) HTN (hypertension): Status: Acute (5) Diabetes: Status: Acute (6) A-fib: Qualifiers: Atrial fibrillation type: unspecified Qualified Code(s): I48.91 - Unspecified atrial fibrillation Status: Acute (7) CHF (congestive heart failure): Status: Acute (8) Urinary frequency: Status: Acute (9) Liver cirrhosis: Status: Acute (10) CAD (coronary artery disease): Status: Acute this is an 59-year-old male with past medical history as above who presents to the hospital after having a fall while being intoxicated. Patient will be admitted for alcohol withdrawal # alcohol abuse and alcohol withdrawal - patient interested in detox, drinks more than 1 case of beer daily as well as rum - start on phenobarb protocol in the ED Plan: - Continue phenobarb - folic acid and thiamine supplement - patient will need a comprehensive plan for rehab prior to discharge # fall - most likely mechanical secondary to alcohol intoxication - unable to give much history around the fall as patient was very drunk when this happened - at this time will admit to telemetry and placed on threat monitoring analyst but the fall was most likely mechanical # AFib - patient on metoprolol, and Eliquis for anticoagulation but according to previous EMR in visits patient has been taking of anti coagulant due to alcohol abuse and frequent falls - rate is currently controlled , will continue metoprolol and continue to hold Eliquis # HFrEF - no evidence of acute exacerbation at this time - continue Entresto, spironolactone, metoprolol, and Lasix 40 daily - daily BMP # urinary frequency - patient has no urgency or dysuria - has no leukocytosis, afebrile, no evidence of infection at this time - will obtain UA and treat if necessary # CAD - no chest pain - continue aspirin, statin, metoprolol # HTN - continue home regimen # acid reflux - continue omeprazole DVT prophylaxis: Lovenox date of service 01/22/2020
--- NOTE | 2020-01-22 04:43 | PC.NURSE ---
report given to rn on floor, pt ready for transport to floor.
[2020-01-22 04:45] VITALS: BP 132/96; PULSE 88; O2SAT 95
[2020-01-22 05:22] VITALS: BP 154/84; PULSE 108; RESP 18; TEMP 36.6; O2SAT 94
[2020-01-22] MEDS: PHENobarbitaL sodium 130 MG/ML VIAL 230 MG IM ×2 (05:26→08:18)
[2020-01-22 07:20] VITALS: BMI 36.9
[2020-01-22 07:52] VITALS: BP 135/84; PULSE 105; RESP 18; TEMP 36.9; O2SAT 95
[2020-01-22 08:13] LABS: Glucose, Whole Blood 184 mg/dL (60-115)
[2020-01-22] MEDS: 0.9 % Sodium Chloride 1,000 ML 100 ML IVCONT ×2 (08:15→17:14)
[2020-01-22] MEDS: 0.9 % Sodium Chloride Flush 3 ML SYRINGE 2 ML IVFLUSH (08:15)
[2020-01-22] MEDS: Gabapentin 400 MG CAPSULE PO ×3 (08:16→21:28)
[2020-01-22] MEDS: Insulin Lispro 100 UNIT/ML 3 ML VIAL SUBCUT ×2 (08:16→12:24)
[2020-01-22] MEDS: Pyridoxine HCl (Vitamin B6) 50 MG TABLET PO (08:16)
[2020-01-22] MEDS: Enoxaparin Sodium 40 MG/0.4 ML SYRINGE SUBCUT (08:16)
[2020-01-22] MEDS: Magnesium Oxide 400 MG TABLET PO ×2 (08:17→21:28)
[2020-01-22] MEDS: Thiamine HCL 100 MG TABLET PO (08:17)
[2020-01-22] MEDS: Spironolactone 25 MG TABLET PO (08:17)
[2020-01-22] MEDS: Sacubitril/Valsartan 24/26 1 TAB TABLET PO ×2 (08:17→21:28)
[2020-01-22] MEDS: Multivitamin TABLET 1 TAB PO (08:17)
[2020-01-22] MEDS: Aspirin Enteric Coated 81 MG TABLET.DR PO (08:17)
[2020-01-22] MEDS: Metoprolol Succinate ER 50 MG TAB.ER.24H PO (08:17)
[2020-01-22] MEDS: Furosemide 40 MG TABLET PO ×2 (08:17→21:28)
[2020-01-22] MEDS: Omeprazole 20 MG CAPSULE.DR PO (08:17)
[2020-01-22] MEDS: Folic Acid 1 MG TABLET PO (08:17)
[2020-01-22 10:08] LABS: INTERNATIONAL NORM RATIO 1.2 (0.9-1.1); Prothrombin Time 14.2 SEC (10.8-13.0)
[2020-01-22 10:27] LABS: Alanine Aminotransferase 36 U/L (0-40); Albumin Level 3.9 g/dL (3.5-5.0); Alkaline Phosphatase 88 U/L (39-117); Anion Gap 16 (12-20); Aspartate Amino Transferase 33 U/L (5-37); Bilirubin Total 0.4 mg/dL (0.0-1.0); Blood Urea Nitrogen 5 mg/dL (9-16); Calcium 8.6 mg/dL (8.4-10.2); Carbon Dioxide 23 mmol/L (22-29); Chloride 108 mmol/L (96-108); Estimated Glomerular Filt Rate > 60; Glucose Random 192 mg/dL (60-115); Potassium 3.6 mmol/l (3.3-5.1); Sodium 143 mmol/L (135-145); Total Protein 7.2 g/dL (6.5-8.0)
[2020-01-22 12:00] VITALS: BP 140/82; PULSE 95; RESP 18; TEMP 36.8; O2SAT 98
[2020-01-22 13:59] LABS: Glucose, Whole Blood 172 mg/dL (60-115)
[2020-01-22 14:51] LABS: Glucose Urine UA 250 MG/DL (NEG); Leukocyte Esterase Urine NEG (NEG); Nitrite Urine NEG (NEG); PH 5.5 (5.0-8.0); Urine Blood 1+ (NEG); Urine Ketones NEG (NEG); Urine Protein TRACE MG/DL (NEG-TRACE)
[2020-01-22 14:54] LABS: Appearance Urine CLEAR; Color Urine YELLOW
[2020-01-22 14:58] LABS: Mucus Urine TRACE /LPF; Renal Epithelial Cells Urine TRACE /LPF; Squamous Epithelial Cell Urine TRACE /LPF; WBC Urine 0-2 /HPF (0-4)
[2020-01-22 15:57] VITALS: BP 142/79; PULSE 79; RESP 18; TEMP 36.9; O2SAT 97
[2020-01-22 16:42] LABS: Glucose, Whole Blood 97 mg/dL (60-115)
[2020-01-22 19:48] VITALS: BP 142/72; PULSE 67; RESP 18; TEMP 36.7; O2SAT 99
[2020-01-22 21:16] LABS: Glucose, Whole Blood 131 mg/dL (60-115)
[2020-01-22] MEDS: PHENobarbitaL 15 MG TABLET 45 MG PO (21:27)
[2020-01-22] MEDS: Atorvastatin Calcium 40 MG TABLET PO (21:28)
[2020-01-22] MEDS: traZODone HCL 50 MG TABLET PO (21:28)
[2020-01-23 00:05] VITALS: BP 150/82; PULSE 89; RESP 18; TEMP 35.5; O2SAT 98
[2020-01-23] MEDS: 0.9 % Sodium Chloride 1,000 ML 100 ML IVCONT (03:23)
[2020-01-23 03:31] VITALS: BP 133/84; PULSE 82; RESP 18; TEMP 36.9; O2SAT 98
[2020-01-23 05:22] LABS: Basophils Percent Auto 0.4 % (0-2); Imm Gran Abs Auto 0.02 X10*3/uL (0.00-0.03); Imm Gran Pct Auto 0.3 % (0.0-0.4); PLT CLUMP 1; SCAN SMEAR FLAG 1
[2020-01-23 05:24] LABS: Eosinophils Absolute Auto 0.2 X10*3/uL (0.0-0.4); Hematocrit 37.8 % (42-52); Hemoglobin 12.6 g/dl (14.0-18.0); Lymphocytes Absolute Auto 1.5 X10*3/uL (1.2-4.9); Lymphocytes Percent Auto 18.6 % (20-40); MANUAL DIFF FLAG NO; Mean Corpuscular HGB Conc 33.3 g/dl (31.0-36.0); Mean Corpuscular Volume 95.9 fL (80-98); Mean Platelet Volume 10.2 fL (9.4-12.4); Monocytes Absolute Auto 0.8 X10*3/uL (0.1-1.2); Monocytes Percent Auto 9.8 % (2-11); Neutrophils Absolute Auto 5.4 X10*3/uL (2.0-8.3); Neutrophils Percent Auto 68.9 % (45-73); Platelet Count 145 X10*3/uL (160-400); Red Blood Count 3.94 X10*6/uL (4.60-5.80); Red Cell Distribution Width 12.2 % (11.0-16.0); White Blood Count 7.8 X10*3/uL (4.8-10.8)
[2020-01-23 05:39] LABS: Alanine Aminotransferase 28 U/L (0-40); Albumin Level 3.4 g/dL (3.5-5.0); Alkaline Phosphatase 81 U/L (39-117); Anion Gap 11 (12-20); Aspartate Amino Transferase 25 U/L (5-37); Blood Urea Nitrogen 8 mg/dL (9-16); Calcium 7.8 mg/dL (8.4-10.2); Carbon Dioxide 25 mmol/L (22-29); Chloride 105 mmol/L (96-108); Creatinine Clr Calc Pharmacy 153.8; Estimated Glomerular Filt Rate > 60; Glucose Random 169 mg/dL (60-115); Potassium 3.1 mmol/l (3.3-5.1); Sodium 138 mmol/L (135-145); Total Protein 6.2 g/dL (6.5-8.0)
[2020-01-23] MEDS: Potassium Chloride/H20 10 MEQ/100 ML PIGGYBACK 100 MEQ IV (06:10)
[2020-01-23 08:00] VITALS: BP 137/66; PULSE 87; RESP 18; TEMP 36.2; O2SAT 97
[2020-01-23 08:13] LABS: Glucose, Whole Blood 197 mg/dL (60-115)
[2020-01-23] MEDS: Enoxaparin Sodium 40 MG/0.4 ML SYRINGE SUBCUT (08:53)
[2020-01-23] MEDS: Insulin Lispro 100 UNIT/ML 3 ML VIAL SUBCUT ×2 (08:53→12:30)
[2020-01-23] MEDS: PHENobarbitaL 15 MG TABLET 45 MG PO (08:54)
[2020-01-23] MEDS: Gabapentin 400 MG CAPSULE PO (08:55)
[2020-01-23] MEDS: Sacubitril/Valsartan 24/26 1 TAB TABLET PO (08:55)
[2020-01-23] MEDS: Multivitamin TABLET 1 TAB PO (08:55)
[2020-01-23] MEDS: Spironolactone 25 MG TABLET PO (08:55)
[2020-01-23] MEDS: Aspirin Enteric Coated 81 MG TABLET.DR PO (08:55)
[2020-01-23] MEDS: Furosemide 40 MG TABLET PO (08:55)
[2020-01-23] MEDS: Folic Acid 1 MG TABLET PO (08:55)
[2020-01-23] MEDS: Thiamine HCL 100 MG TABLET PO (08:56)
[2020-01-23] MEDS: Metoprolol Succinate ER 50 MG TAB.ER.24H PO (08:56)
[2020-01-23] MEDS: Omeprazole 20 MG CAPSULE.DR PO (08:56)
[2020-01-23] MEDS: Pyridoxine HCl (Vitamin B6) 50 MG TABLET PO (08:56)
[2020-01-23] MEDS: Magnesium Oxide 400 MG TABLET PO (08:56)
--- NOTE | 2020-01-23 10:20 | PM.DS ---
DS: Providers Provider Date of admission: 01/22/20 01:55 Primary care physician: Kleber Physician DS: Diagnosis Discharge Diagnosis (1) ETOH abuse: Status: Acute (2) Alcohol withdrawal syndrome: Status: Acute (3) Fall: Status: Acute (4) HTN (hypertension): Status: Acute (5) Diabetes: Status: Acute (6) A-fib: Status: Acute (7) CHF (congestive heart failure): Status: Acute (8) Urinary frequency: Status: Acute (9) Liver cirrhosis: Status: Deleted (10) CAD (coronary artery disease): Status: Acute DS: Summary Hospital Course Hospital Course: patient was admitted for alcohol dependence with withdrawal. He was given phenobarbital and withdrawal improved. Patient is now back to baseline and will be discharged home. Time Spent with Patient Time attestation: Total time spent providing and/or coordinating discharge services: Physical Exam Vital Signs and I&O and Narrative: Vital Signs and I&O: Vital Signs Temp 97.1 F 01/23/20 08:00 Pulse 87 01/23/20 08:00 Resp 18 01/23/20 08:00 BP 137/66 01/23/20 08:00 Pulse Ox 97 01/23/20 08:00 Intake & Output 01/22/20 01/23/20 01/23/20 18:59 06:59 18:59 Intake Total 898.333 / 2138.333 1240 / 2138.333 Output Total 1500 / 2600 1100 / 2600 Balance -601.667 / -461.66 7 140 / -461.667 Urine Output (Aver age ml/kg/hr) 1.10 0.81 0.81 Weight 113.398 kg Intake: Intake, Oral [place] unt 240 / 240 Intake, IV Amoun t 898.333 / 8406.051 9470 / 1898.333 0.9 % Sodium C hloride 1,000 ml 898.333 / 7382.776 5871 / 1898.333 @ 100 mls/hr I VCONT .Q10H FRANKY Rx#:[id number] Output: Output, Urine Am ount 1500 / 2600 1100 / 2600 Other: Breakfast % Eate n 75% 100% Lunch % Eaten 100% Urine Urinal Urinal Urine Color Yellow Yellow Body Mass Index 36.9 DS: Data Data Completed and Pending Labs on day of discharge: Labs from last 24 hours 01/23/20 01/23/20 01/23/20 08:05 05:01 05:01 WBC 7.8 RBC 3.94 L Hgb 12.6 L Hct 37.8 L MCV 95.9 MCH 32.0 MCHC 33.3 RDW 12.2 Plt Count 145 L MPV 10.2 Immature Gran % (Auto) 0.3 Neut % (Auto) 68.9 Lymph % (Auto) 18.6 L [place] % (Auto) 9.8 Eos % (Auto) 2.0 Baso % (Auto) 0.4 Neut # (Auto) 5.4 Lymph # (Auto) 1.5 [place] # (Auto) 0.8 Eos # (Auto) 0.2 Baso # (Auto) 0.0 Abs Immat Gran (auto) 0.02 Absolute Nucleated RBC 0.000 Nucleated RBC % (auto) 0.0 PT INR Sodium 138 Potassium 3.1 L Chloride 105 Carbon Dioxide 25 Anion Gap 11 L BUN 8 L D Creatinine 0.65 Estim Creat Clear Calc 153.8 Estimated GFR > 60 POC Glucose 197 H Random Glucose 169 H Calcium 7.8 L Total Bilirubin 1.0 AST 25 ALT 28 Alkaline Phosphatase 81 Total Protein 6.2 L Albumin 3.4 L Urine Color Urine Appearance Urine pH Ur Specific [place] Urine Protein Urine Glucose (UA) Urine Ketones Urine Blood Urine Nitrite Ur Leukocyte Esterase Urine RBC Urine WBC Ur Squamous Epith Cells Ur Renal Epithelial Cell Urine Bacteria Urine Mucus 01/22/20 01/22/20 01/22/20 21:06 16:11 14:45 WBC RBC Hgb Hct MCV MCH MCHC RDW Plt Count MPV Immature Gran % (Auto) Neut % (Auto) Lymph % (Auto) [place] % (Auto) Eos % (Auto) Baso % (Auto) Neut # (Auto) Lymph # (Auto) [place] # (Auto) Eos # (Auto) Baso # (Auto) Abs Immat Gran (auto) Absolute Nucleated RBC Nucleated RBC % (auto) PT INR Sodium Potassium Chloride Carbon Dioxide Anion Gap BUN Creatinine Estim Creat Clear Calc Estimated GFR POC Glucose 131 H 97 Random Glucose Calcium Total Bilirubin AST ALT Alkaline Phosphatase Total Protein Albumin Urine Color YELLOW Urine Appearance CLEAR Urine pH 5.5 Ur Specific [place] 1.020 Urine Protein TRACE Urine Glucose (UA) 250 H Urine Ketones NEG Urine Blood 1+ H Urine Nitrite NEG Ur Leukocyte Esterase NEG Urine RBC 1-4 Urine WBC 0-2 Ur Squamous Epith Cells TRACE Ur Renal Epithelial Cell TRACE Urine Bacteria NONE Urine Mucus TRACE 01/22/20 01/22/20 01/22/20 11:21 09:03 08:55 WBC RBC Hgb Hct MCV MCH MCHC RDW Plt Count MPV Immature Gran % (Auto) Neut % (Auto) Lymph % (Auto) [place] % (Auto) Eos % (Auto) Baso % (Auto) Neut # (Auto) Lymph # (Auto) [place] # (Auto) Eos # (Auto) Baso # (Auto) Abs Immat Gran (auto) Absolute Nucleated RBC Nucleated RBC % (auto) PT 14.2 H INR 1.2 H Sodium 143 Potassium 3.6 Chloride 108 Carbon Dioxide 23 Anion Gap 16 BUN 5 L Creatinine 0.68 Estim Creat Clear Calc 147.0 Estimated GFR > 60 POC Glucose 172 H Random Glucose 192 H Calcium 8.6 Total Bilirubin 0.4 AST 33 ALT 36 Alkaline Phosphatase 88 Total Protein 7.2 Albumin 3.9 Urine Color Urine Appearance Urine pH Ur Specific [place] Urine Protein Urine Glucose (UA) Urine Ketones Urine Blood Urine Nitrite Ur Leukocyte Esterase Urine RBC Urine WBC Ur Squamous Epith Cells Ur Renal Epithelial Cell Urine Bacteria Urine Mucus Discharge Plan Discharge Patient Disposition: Home, Self-Care Referrals: Physician,None [Primary Care Provider] - Discharge Medications: Continued multivitamin [Daily-[place]] Tablet 1 tab PO DAILY RF: 0 multivitamin [One Daily Multivitamin] Tablet 1 tab PO DAILY RF: 0 furosemide 40 mg tablet 1 tab PO BID RF: 0 atorvastatin 40 mg tablet 1 tab PO BEDTIME RF: 0 metformin 500 mg tablet 1 tab PO BID RF: 0 trazodone 50 mg tablet 1 tab PO BEDTIME RF: 0 metoprolol succinate 50 mg tablet extended release 24 hr 1 tab PO DAILY RF: 0 gabapentin 400 mg capsule 1 cap PO TID RF: 0 thiamine HCl (vitamin B1) 100 mg tablet 1 tab PO DAILY RF: 0 aspirin 81 mg tablet,delayed release (DR/EC) 1 tab PO DAILY RF: 0 spironolactone 25 mg tablet 1 tab PO DAILY RF: 0 magnesium oxide 400 mg (241.3 mg magnesium) tablet 1 tab PO BID RF: 0 pyridoxine (vitamin B6) 50 mg tablet 1 tab PO DAILY RF: 0 omeprazole 20 mg capsule,delayed release(DR/EC) 1 cap PO DAILY RF: 0 folic acid 1 mg tablet 1 tab PO DAILY RF: 0 Entresto 24-26 mg tablet 1 tab PO BID RF: 0 Discontinued Eliquis 5 mg tablet 1 tab PO BID RF: 0 Discharge Orders: Discharge Order (Routine); Ordered 01/23/20 Ordered By: Jamshid Suarez Activity on Discharge: As tolerated Visit Report Forms: Patient Portal Discharge page Care Plan Goals: alcohol cessation Health Concerns: alcohol dependence Plan of Treatment: avoid alcohol
[2020-01-23 10:54] LABS: Anion Gap 12 (12-20); Blood Urea Nitrogen 9 mg/dL (9-16); Calcium 8.1 mg/dL (8.4-10.2); Carbon Dioxide 25 mmol/L (22-29); Chloride 104 mmol/L (96-108); Creatinine Clr Calc Pharmacy 136.9; Estimated Glomerular Filt Rate > 60; Glucose Random 248 mg/dL (60-115); Potassium 3.4 mmol/l (3.3-5.1); Sodium 138 mmol/L (135-145)
[2020-01-23] MEDS: 0.9 % Sodium Chloride Flush 3 ML SYRINGE 2 ML IVFLUSH (11:33)
--- NOTE | 2020-01-23 11:40 | MHC.CM.PN ---
pt discharging home today with no services
[2020-01-23 12:20] LABS: Glucose, Whole Blood 221 mg/dL (60-115)
== END 2020-01-23 14:45 | disposition home or self-care (01) | DRG 897 ==
LOC: HO.ED 01-22 01:47 → HO.IMC 01-22 02:09
PROVIDERS: Internal Medicine; Nurse Practitioner Family; Admitting Provider Internal Medicine; Visit Provider Internal Medicine
DX: F10.221 Alcohol dependence with intoxication delirium (principal); I50.22 Chronic systolic (congestive) heart failure; F17.210 Nicotine dependence, cigarettes, uncomplicated; F10.231 Alcohol dependence with withdrawal delirium; Z71.6 Tobacco abuse counseling; I25.10 Atherosclerotic heart disease of native coronary artery without angina pectoris; I11.0 Hypertensive heart disease with heart failure; I48.91 Unspecified atrial fibrillation; K21.9 Gastro-esophageal reflux disease without esophagitis; E11.9 Type 2 diabetes mellitus without complications; Z88.0 Allergy status to penicillin; Z79.82 Long term (current) use of aspirin; Z79.84 Long term (current) use of oral hypoglycemic drugs; Z79.899 Other long term (current) drug therapy
CPT/HCPCS: 36415; 70450; 71045; 72125; 74176; 80048; 80053; 80307; 80320; 81001; 82040; 82247; 82947; 83735; 84075; 84155; 84450; 84460; 84484; 85025; 85610; 93005; 93010; 96361; 96365; 96372; 99284; 99285; G0480; J1650; J2560

== ENCOUNTER 2020-01-27 20:33 | Emergency (ER) | payer MEDICARE, MEDICAID, SELFPAY ==
--- NOTE | 2020-01-27 | CT_ITS ---
EXAMINATION: CT HEAD WITHOUT CONTRAST CLINICAL INFORMATION: Fall. COMPARISON: 01/21/2020 TECHNIQUE: Contiguous axial imaging was performed from the skull base to vertex without intravenous contrast. This CT examination was performed using dose optimization techniques as appropriate, variously including the following: * Automated exposure control * Adjustment of mA and/or kV according to patient size (this includes techniques or standardized protocols for targeted exams where dose is matched to indication/reason for exam; i.e. extremities or head) Use of iterative reconstruction technique DLP: 767 mGy-cm. FINDINGS: There is no evidence of acute intracranial hemorrhage or territorial infarction. No abnormal mass effect or midline shift is seen. Garcia to white matter differentiation is well preserved. No extra-axial fluid collections are identified. No hydrocephalus. No significant volume loss. Patchy periventricular and deep white matter hypoattenuation is consistent with mild small vessel ischemic changes. Mild soft tissue swelling overlies the high right parietal area. No underlying calvarial fracture. The mastoid air cells and visualized portions of the paranasal sinuses are well aerated. IMPRESSION: No acute intracranial pathology.
--- NOTE | 2020-01-27 | CT_ITS ---
Indication: Fall EXAMINATION: CT the abdomen pelvis and chest. Radiation dose is 1367. 85 mL Omnipaque 350. Comparison to abdominal pelvic CT dated 01/21/2020 Axial imaging with coronal and sagittal reformatted images. CT chest; The thoracic inlet is felt to be within normal limits. There is some adenopathy in the mediastinum. Tracheal region on the right. Area of small lymph nodes conglomerated. There is also felt to be some hilar adenopathy in the right There is no extravasation of contrast. Imaging lung hope. Right lung; Limited from motion. Some reticular change at the right base. Some scattered patchy areas of the right base. Bronchial thickening is noted. No pneumothorax Left lung; No significant infiltrate or effusion. Some bronchial thickening is once again noted. There is no pneumothorax. Upper abdomen; Once again abnormal contour to the liver most consistent with cirrhosis. There is minimal fluid adjacent the right lobe liver. This is likely simple ascites due to low Hounsfield units. The spleen is unchanged from previous. Region the pancreas is unremarkable Adrenal glands within normal limits. The kidneys are in the early nephrographic phase felt to be within normal limits. The bowel pattern is nonobstructing There is no free fluid. No free fluid in the deep pelvis. The bladder is unremarkable. Evidence of diverticulosis but no evidence for diverticulitis in the large bowel. No free air. Mildly prominent prostate. Review of the bone windows does not demonstrate evidence for fracture. IMPRESSION: No convincing evidence for visceral injury in the chest abdomen pelvis In the chest motion degrades imaging. Some patchy areas of infiltrate at the right base and reticular change consistent with reticular infiltrate at the right base. There is as described evidence of adenopathy in the mediastinum on the right and right hilar and subcarinal region. This may be reactive to lung changes. Follow-up study would be recommended. Underlying malignancy cannot be excluded. Recommend follow-up in 3 months low-dose noncontrast. Findings suggest once again cirrhosis of the liver and there is a small amount of ascites adjacent to the liver on this exam.
[2020-01-27 20:49] VITALS: BP 154/72; PULSE 99; RESP 18; TEMP 36.5; O2SAT 99; BMI 33.2
--- NOTE | 2020-01-27 21:17 | ED.GENADULT ---
HPI - General Adult General Chief complaint: ETOH/Substance Use Stated complaint: etoh Time Seen by Provider: 01/27/20 21:17 History of Present Illness HPI narrative: This is a 59-year-old male with multiple comorbidities who is brought in by EMS at the request of his friends who felt like he was too unsteady and acting oddly. Patient states he drink 8 beers today and does endorse that he fell the other day. Patient states he does not drink on a regular basis but says that he has been admitted for his alcohol use in the past. Patient is otherwise a poor historian. Related Data Home Medications Medication Instructions Recorded Confirmed Entresto 1 tab PO BID 01/22/20 01/22/20 aspirin 1 tab PO DAILY 01/22/20 01/22/20 atorvastatin 1 tab PO BEDTIME 01/22/20 01/22/20 folic acid 1 tab PO DAILY 01/22/20 01/22/20 furosemide 1 tab PO BID 01/22/20 01/22/20 gabapentin 1 cap PO TID 01/22/20 01/22/20 magnesium oxide 1 tab PO BID 01/22/20 01/22/20 metformin 1 tab PO BID 01/22/20 01/22/20 metoprolol succinate 1 tab PO DAILY 01/22/20 01/22/20 multivitamin [Daily-[place]] 1 tab PO DAILY 01/22/20 01/22/20 multivitamin [One Daily 1 tab PO DAILY 01/22/20 01/22/20 Multivitamin] omeprazole 1 cap PO DAILY 01/22/20 01/22/20 pyridoxine (vitamin B6) 1 tab PO DAILY 01/22/20 01/22/20 spironolactone 1 tab PO DAILY 01/22/20 01/22/20 thiamine HCl (vitamin B1) 1 tab PO DAILY 01/22/20 01/22/20 trazodone 1 tab PO BEDTIME 01/22/20 01/22/20 Allergies Allergy/AdvReac Type Severity Reaction Status Date / Time Penicillins [PCN] Allergy Unknown UNKNOWN Verified 01/22/20 07:24 Review of Systems Review of Systems: Pertinent positives and negatives as stated in the HPI. GEN: no fevers, chills, fatigue HEENT: no nasal congestion, sore throat, ear pain NEURO: no headache, dizziness, focal weakness PULM: no cough, shortness of breath CV: no chest pain, palpitations, +LE edema ABD: no abdominal pain, nausea, vomiting, diarrhea : no dysuria, urgency, frequency SKIN: no rash ROS otherwise negative x 10 PMFSH Past Medical History Source: nursing notes reviewed Medical History CAD (coronary artery disease) CHF (congestive heart failure) Diabetes ETOH abuse HTN (hypertension) Social History Social History Alcohol intake: current Alcohol intake frequency: 3 or more drinks per day Alcohol type: beer Smoking Status: Current every day smoker Use of substances other than those prescribed or required for medical reasons: No Advance Directives: No Advance Directives Information Provided: No service: No Current occupational status: unemployed Physical Exam Vital Signs and I&O and Narrative: Vital Signs and I&O: Vital Signs Temp 97.7 F 01/28/20 05:37 Pulse 124 H 01/28/20 07:49 Resp 19 01/28/20 07:49 BP 166/106 H 01/28/20 07:49 Pulse Ox 97 01/28/20 05:43 Intake & Output 01/27/20 01/28/20 01/28/20 18:59 06:59 18:59 Intake Total 100 / 100 Balance 100 / 100 Weight 102.058 kg Intake: Intake, IV Amoun t 100 / 100 Magnesium Sulf ate/D5W 1 gm In 100 / 100 100 ml @ 100 m ls/hr IV ONCE ONE Rx#:[id number] Body Mass Index 33.2 VITAL SIGNS: Reviewed. GENERAL: Well developed, well nourished, in no acute distress, slurred speech. HEAD: Normocephalic/atraumatic, EYES: PERRLA, EOMI intact without pain, +nystagmus, nopallor/icterus noted EARS: Ext canals without abnormality, TMs non-bulging and non-erythematous NOSE: Nares patent bilateral OROPHARYNX: no oral lesions noted, posterior pharynx clear and non-erythematous without noted tonsillar enlargement/erythema/exudates NECK: Supple, no adenopathy LUNGS: Normal breath sounds. No adventitious sounds or accessory muscle use. SpO2<> CARDIOVASCULAR: Regular rate and rhythm without noted murmurs, no JVD or lower extremity edema. ABDOMEN: Soft, non-tender, non-distended with bowel sounds. No rigidity. No guarding. No palpable masses or hernias noted. Significant ecchymosis noted to the abdomen and chest wall MUSCULOSKELETAL: No tenderness, deformities, or effusions noted on gross inspection. EXTREMITIES: No cyanosis, clubbing or edema extensive ecchymosis noted to the upper extremities consistent with history of fall without deformities and neurovascularly intact distal. bilateral lower extremities with skin thickening and changes secondary with chronic venous stasis and underlying diabetes. SKIN: Inspection of the skin reveals no rashes, ulcerations, jaundice, pallor, or petechiae. NEUROLOGIC: Alert and oriented x 4. Strength and sensation to light touch were grossly intact x 4. Course Course Course Narrative: This is a 59-year-old male with history and clinical presentation consistent with injuries associated with alcohol dependence which will be further evaluated with CT of the chest/abdomen / pelvis. As well as lab work to further evaluate patient's underlying medical conditions. At 10:11 p.m. chest x-ray results were noted and being read as concerning for COVID-19, nursing staff was informed and patient will be moved to an isolation room. The remaining lab work was reviewed and not found to have any acute changes and appears to be chronically stable. The noted low magnesium was repleted and patient was placed on a CIWA scale. Review of all imaging is negative for acute findings and was pursued due to fall with significant ecchymosis and concerning findings on chest x-ray that were suggestive of possible COVID-19 pattern. A COVID-19 test was submitted and on evaluation for detox the patient is now declining detox, and stating that he has control over his drinking, and wishes to pursue outpatient options. He is stable for discharge to home Medical Decision Making Lab Data Result diagrams: 01/27/20 21:46 01/27/20 21:46 Labs: Lab Results 01/27/20 01/27/20 01/27/20 Range/Units 21:46 21:46 21:46 WBC 7.7 (4.8-10.8) X10*3/uL RBC 4.02 L (4.60-5.80) X10*6/uL Hgb 12.9 L (14.0-18.0) g/dl Hct 38.0 L (42-52) % MCV 94.5 (80-98) fL MCH 32.1 (27.0-33.0) pg MCHC 33.9 (31.0-36.0) g/dl RDW 12.5 (11.0-16.0) % Plt Count 147 L (160-400) X10*3/uL MPV 9.3 L (9.4-12.4) fL Immature Gran % (Auto) 0.3 (0.0-0.4) % Neut % (Auto) 65.8 (45-73) % Lymph % (Auto) 23.4 (20-40) % [place] % (Auto) 7.3 (2-11) % Eos % (Auto) 2.9 (0-4) % Baso % (Auto) 0.3 (0-2) % Lymph # (Auto) 1.8 (1.2-4.9) X10*3/uL [place] # (Auto) 0.6 (0.1-1.2) X10*3/uL Eos # (Auto) 0.2 (0.0-0.4) X10*3/uL Baso # (Auto) 0.0 (0.0-0.2) X10*3/uL Abs Immat Gran (auto) 0.02 (0.00-0.03) X10*3/uL Absolute Neuts (auto) 5.0 (2.0-8.3) X10*3/uL Absolute Nucleated RBC 0.000 (0.0-0.012) X10*3/uL Nucleated RBC % (auto) 0.0 (0.0-0.2) /100WBC Sodium 138 (135-145) mmol/L Potassium 3.5 (3.3-5.1) mmol/l Chloride 102 (96-108) mmol/L Carbon Dioxide 24 (22-29) mmol/L Anion Gap 16 (12-20) BUN 4 L D (9-16) mg/dL Creatinine 0.75 (0.5-1.4) mg/dL Estim Creat Clear Calc 126.4 Estimated GFR > 60 Random Glucose 309 H (60-115) mg/dL Calcium 8.9 (8.4-10.2) mg/dL Magnesium 1.5 L (1.6-2.6) mg/dL Total Bilirubin 0.7 (0.0-1.0) mg/dL AST 26 (5-37) U/L ALT 26 (0-40) U/L Alkaline Phosphatase 104 D (39-117) U/L Total Protein 7.5 D (6.5-8.0) g/dL Albumin 4.1 D (3.5-5.0) g/dL Lipase 7 L (8-78) U/L Urine Color Urine Appearance Urine pH (5.0-8.0) Ur Specific [place] (1.005-1.025) Urine Protein (NEG-TRACE) MG/DL Urine Glucose (UA) (NEG) MG/DL Urine Ketones (NEG) MG/DL Urine Blood (NEG) Urine Nitrite (NEG) Ur Leukocyte Esterase (NEG) Urine RBC (0) /HPF Urine WBC (0-4) /HPF Ur Squamous Epith Cells /LPF Urine Bacteria /LPF Urine Opiates Screen (Not Detect) Ur Barbiturates Screen (Not Detect) Ur Phencyclidine Scrn (Not Detect) Ur Amphetamines Screen (Not Detect) U Benzodiazepines Scrn (Not Detect) Urine Cocaine Screen (Not Detect) U Marijuana (THC) Screen (Not Detect) Ethyl Alcohol 323 H* mg/dL 01/27/20 01/27/20 Range/Units 23:12 23:12 WBC (4.8-10.8) X10*3/uL RBC (4.60-5.80) X10*6/uL Hgb (14.0-18.0) g/dl Hct (42-52) % MCV (80-98) fL MCH (27.0-33.0) pg MCHC (31.0-36.0) g/dl RDW (11.0-16.0) % Plt Count (160-400) X10*3/uL MPV (9.4-12.4) fL Immature Gran % (Auto) (0.0-0.4) % Neut % (Auto) (45-73) % Lymph % (Auto) (20-40) % [place] % (Auto) (2-11) % Eos % (Auto) (0-4) % Baso % (Auto) (0-2) % Lymph # (Auto) (1.2-4.9) X10*3/uL [place] # (Auto) (0.1-1.2) X10*3/uL Eos # (Auto) (0.0-0.4) X10*3/uL Baso # (Auto) (0.0-0.2) X10*3/uL Abs Immat Gran (auto) (0.00-0.03) X10*3/uL Absolute Neuts (auto) (2.0-8.3) X10*3/uL Absolute Nucleated RBC (0.0-0.012) X10*3/uL Nucleated RBC % (auto) (0.0-0.2) /100WBC Sodium (135-145) mmol/L Potassium (3.3-5.1) mmol/l Chloride (96-108) mmol/L Carbon Dioxide (22-29) mmol/L Anion Gap (12-20) BUN (9-16) mg/dL Creatinine (0.5-1.4) mg/dL Estim Creat Clear Calc Estimated GFR Random Glucose (60-115) mg/dL Calcium (8.4-10.2) mg/dL Magnesium (1.6-2.6) mg/dL Total Bilirubin (0.0-1.0) mg/dL AST (5-37) U/L ALT (0-40) U/L Alkaline Phosphatase (39-117) U/L Total Protein (6.5-8.0) g/dL Albumin (3.5-5.0) g/dL Lipase (8-78) U/L Urine Color STRAW Urine Appearance CLEAR Urine pH 5.5 (5.0-8.0) Ur Specific [place] <= 1.005 (1.005-1.025) Urine Protein 1+ H (NEG-TRACE) MG/DL Urine Glucose (UA) >=1000 H (NEG) MG/DL Urine Ketones NEG (NEG) MG/DL Urine Blood 1+ H (NEG) Urine Nitrite NEG (NEG) Ur Leukocyte Esterase NEG (NEG) Urine RBC 0 (0) /HPF Urine WBC 0-2 (0-4) /HPF Ur Squamous Epith Cells NONE /LPF Urine Bacteria NONE /LPF Urine Opiates Screen Not Detected (Not Detect) Ur Barbiturates Screen POSITIVE H (Not Detect) Ur Phencyclidine Scrn Not Detected (Not Detect) Ur Amphetamines Screen Not Detected (Not Detect) U Benzodiazepines Scrn Not Detected (Not Detect) Urine Cocaine Screen Not Detected (Not Detect) U Marijuana (THC) Screen Not Detected (Not Detect) Ethyl Alcohol mg/dL ECG Data Attestation: I personally reviewed and interpreted this ECG as follows: Prior ECG tracings: available for review (01/21/2020) Interpretation: A-fib, HR-113, no evidence of ischemia Discharge Plan Discharge Clinical Impression: Alcohol use disorder Patient Disposition: Home, Self-Care Instructions: Alcohol Dependence (ED), Alcohol Intoxication (ED) Additional Instructions: The patient and/or family acknowledge understanding of results (as applicable), diagnosis, treatment plan, need for follow up, and symptoms that should prompt a return to the emergency room. Prescriptions: No Action multivitamin [Daily-[place]] Tablet 1 tab PO DAILY RF: 0 multivitamin [One Daily Multivitamin] Tablet 1 tab PO DAILY RF: 0 furosemide 40 mg tablet 1 tab PO BID RF: 0 atorvastatin 40 mg tablet 1 tab PO BEDTIME RF: 0 metformin 500 mg tablet 1 tab PO BID RF: 0 trazodone 50 mg tablet 1 tab PO BEDTIME RF: 0 metoprolol succinate 50 mg tablet extended release 24 hr 1 tab PO DAILY RF: 0 gabapentin 400 mg capsule 1 cap PO TID RF: 0 thiamine HCl (vitamin B1) 100 mg tablet 1 tab PO DAILY RF: 0 aspirin 81 mg tablet,delayed release (DR/EC) 1 tab PO DAILY RF: 0 spironolactone 25 mg tablet 1 tab PO DAILY RF: 0 magnesium oxide 400 mg (241.3 mg magnesium) tablet 1 tab PO BID RF: 0 pyridoxine (vitamin B6) 50 mg tablet 1 tab PO DAILY RF: 0 omeprazole 20 mg capsule,delayed release(DR/EC) 1 cap PO DAILY RF: 0 folic acid 1 mg tablet 1 tab PO DAILY RF: 0 Entresto 24-26 mg tablet 1 tab PO BID RF: 0 Referrals: Physician,Unknown [Primary Care Provider] - 2 days
--- NOTE | 2020-01-27 21:21 | ECG_ITS ---
Test Reason : ETOH Blood Pressure : / mmHG Vent. 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
--- NOTE | 2020-01-27 21:21 | XR_ITS ---
EXAMINATION: XR CHEST CLINICAL INFORMATION: Cough. COMPARISON: Chest x-ray 01/21/2020, 8:45 PM. Chest x-ray 12/31/2019 TECHNIQUE: Frontal view of the chest was obtained. 9:26 PM FINDINGS: There are vague patchy airspace opacities in the lungs bilaterally. There is concerning for an atypical infection including Covid 19. No dense consolidation or pleural effusion. Cardiac and mediastinal contours are unchanged. There is calcifications of aortic arch. IMPRESSION: Vague diffuse patchy airspace opacities in the lungs bilaterally concerning for atypical infection including Covid 19. CT of chest would be helpful for further assessment.
[2020-01-27 21:53] LABS: MANUAL DIFF FLAG NO
[2020-01-27 21:54] LABS: Basophils Percent Auto 0.3 % (0-2); Eosinophils Absolute Auto 0.2 X10*3/uL (0.0-0.4); Eosinophils Percent Auto 2.9 % (0-4); Hemoglobin 12.9 g/dl (14.0-18.0); Imm Gran Abs Auto 0.02 X10*3/uL (0.00-0.03); Imm Gran Pct Auto 0.3 % (0.0-0.4); Lymphocytes Absolute Auto 1.8 X10*3/uL (1.2-4.9); Lymphocytes Percent Auto 23.4 % (20-40); Mean Corpuscular HGB Conc 33.9 g/dl (31.0-36.0); Mean Corpuscular Hemoglobin 32.1 pg (27.0-33.0); Mean Corpuscular Volume 94.5 fL (80-98); Mean Platelet Volume 9.3 fL (9.4-12.4); Monocytes Absolute Auto 0.6 X10*3/uL (0.1-1.2); Monocytes Percent Auto 7.3 % (2-11); Neutrophils Percent Auto 65.8 % (45-73); Platelet Count 147 X10*3/uL (160-400); Red Blood Count 4.02 X10*6/uL (4.60-5.80); Red Cell Distribution Width 12.5 % (11.0-16.0); White Blood Count 7.7 X10*3/uL (4.8-10.8)
[2020-01-27 22:15] LABS: Ethanol 323 mg/dL
[2020-01-27 22:24] LABS: Alanine Aminotransferase 26 U/L (0-40); Albumin Level 4.1 g/dL (3.5-5.0); Alkaline Phosphatase 104 U/L (39-117); Anion Gap 16 (12-20); Aspartate Amino Transferase 26 U/L (5-37); Bilirubin Total 0.7 mg/dL (0.0-1.0); Blood Urea Nitrogen 4 mg/dL (9-16); Calcium 8.9 mg/dL (8.4-10.2); Carbon Dioxide 24 mmol/L (22-29); Chloride 102 mmol/L (96-108); Creatinine Clr Calc Pharmacy 126.4; Estimated Glomerular Filt Rate > 60; Glucose Random 309 mg/dL (60-115); Lipase 7 U/L (8-78); Magnesium 1.5 mg/dL (1.6-2.6); Potassium 3.5 mmol/l (3.3-5.1); Sodium 138 mmol/L (135-145); Total Protein 7.5 g/dL (6.5-8.0)
[2020-01-27 23:09] VITALS: BP 132/87; PULSE 117; RESP 20; TEMP 36.6; O2SAT 96
[2020-01-27 23:18] LABS: Glucose Urine UA >=1000 MG/DL (NEG); Leukocyte Esterase Urine NEG (NEG); Nitrite Urine NEG (NEG); PH 5.5 (5.0-8.0); Specific Gravity - Urine <= 1.005 (1.005-1.025); Urine Blood 1+ (NEG); Urine Ketones NEG (NEG); Urine Protein 1+ MG/DL (NEG-TRACE)
[2020-01-27 23:21] LABS: Appearance Urine CLEAR; Color Urine STRAW
[2020-01-27 23:37] LABS: RBC Urine 0 /HPF (0); WBC Urine 0-2 /HPF (0-4)
[2020-01-27 23:41] LABS: Amphetamine Screen Urine Not Detected (Not Detect); Barbiturates, Urine POSITIVE (Not Detect); Benzodiazepines Screen Urine Not Detected (Not Detect); Cannabinoid Screen Urine Not Detected (Not Detect); Cocaine Screen Urine Not Detected (Not Detect); Opiate Screen Urine Not Detected (Not Detect); Phencyclidine Screen Urine Not Detected (Not Detect)
[2020-01-28] VITALS: BP 153/99; PULSE 102; RESP 20; TEMP 36.9; O2SAT 97
[2020-01-28] MEDS: iohexoL 350 MG/ML 100 ML INFUS..BTL 85 ML IV (00:01)
[2020-01-28 02:00] VITALS: BP 143/80; PULSE 93; RESP 16; TEMP 36.5; O2SAT 98
[2020-01-28] MEDS: Magnesium Sulfate/D5W 1 GM/100 ML PIGGYBACK IV (04:12)
[2020-01-28 05:37] VITALS: BP 147/80; PULSE 93; RESP 16; TEMP 36.5; O2SAT 97
[2020-01-28 05:43] VITALS: BP 150/84; PULSE 109; RESP 19; O2SAT 97
[2020-01-28 07:49] VITALS: BP 166/106; PULSE 124; RESP 19
--- NOTE | 2020-01-28 07:58 | PC.NURSE ---
CARE TEAM ([facility] ) AT PT'S BEDSIDE. PT AWARE OF PLAN OF CARE.
--- NOTE | 2020-01-28 08:13 | MHC.CARE ---
CARE Team consult RE: etoh use This tech writer met with patient with an [facility] wash plant operator to discuss alcohol use. Patient acknowledges that his alcohol consumption is problematic at this point in his life. Patient reports he has been able to abstain from drinking for long periods of time at different points in his life and that he is in control of his drinking. Patient reports that he has been drinking too much lately due to being around people who are constantly drinking. Patient reports when he is with those people, he is more likely to drink. Patient acknowledged it is in his best interest to avoid being around those people. Patient provided with education and information on [facility], a peer recovery support center. Patient encouraged to reach out to the people at the recovery center if he wants to get connected with support groups and recovery coaching. Patient encouraged to get in touch with the recovery center as a way to meet new people who are also trying to maintain sobriety. Patient acknowledged Discussed detox services with patient. Patient reports he has been to detox before and has found it helpful, however he does not feel he needs to go at this time as he feels like he is in control of his drinking and that he can stop on his own. Patient reports he has medication at home that he can help support him in his recovery. Patient provided with information on detox services in the event that he changes his mind after discharge. Discussed case with patient's RN. CARE Team available as needed.
[2020-01-28] MEDS: LORazepam 2 MG/ML VIAL IVPUSH (08:19)
[2020-01-28 08:55] VITALS: BP 154/97; PULSE 115; RESP 20; TEMP 36.9; O2SAT 98
[2020-01-28] MEDS: chlordiazePOXIDE HCl 25 MG CAPSULE 50 MG PO (09:13)
== END 2020-01-28 09:37 | disposition home or self-care (01) ==
PROVIDERS: Emergency Provider Student in an Organized Health Care Education/Training Program
DX: F10.220 Alcohol dependence with intoxication, uncomplicated (principal); Y90.8 Blood alcohol level of 240 mg/100 ml or more; Z20.828 Contact with and (suspected) exposure to other viral communicable diseases; E11.9 Type 2 diabetes mellitus without complications; I11.0 Hypertensive heart disease with heart failure; I50.9 Heart failure, unspecified; F17.200 Nicotine dependence, unspecified, uncomplicated; Z79.82 Long term (current) use of aspirin; Z79.899 Other long term (current) drug therapy; Z79.84 Long term (current) use of oral hypoglycemic drugs
CPT/HCPCS: 36415; 70450; 71045; 71260; 74177; 80053; 80307; 80320; 81001; 83690; 83735; 85025; 87635; 93005; 96365; 96375; 99284; J2060; J3475

== ENCOUNTER 2020-03-26 18:38 | Emergency (ER) | payer MEDICARE, MEDICAID, SELFPAY ==
--- NOTE | 2020-03-26 18:39 | ED.ALCOHOL ---
HPI - Alcohol General Chief Complaint: Fall Stated Complaint: FALL D/T ETOH Time Seen by Provider: 03/26/20 20:58 Source: EMS Mode of arrival: EMS Limitations: language barrier and altered mental status History of Present Illness HPI narrative: 59-year-old male with past medical history of coronary artery disease, CHF, hypertension, EtOH abuse, diabetes type 2 insulin dependent, morbid obesity, and atrial fibrillation presents with altered mental status, ETOH intoxication, and fall with unknown head trauma. He is not able to answer questions at this time. MD complaint: alcohol intoxication Last drink: Just prior to admission Chronic alcohol use: Yes Previous visits for alcohol intoxication: Yes Recent trauma: Yes Treatments prior to arrival: cervical collar Related Data Home Medications Medication Instructions Recorded Confirmed Entresto 1 tab PO BID 01/22/20 01/22/20 aspirin 1 tab PO DAILY 01/22/20 01/22/20 atorvastatin 1 tab PO BEDTIME 01/22/20 01/22/20 folic acid 1 tab PO DAILY 01/22/20 01/22/20 furosemide 1 tab PO BID 01/22/20 01/22/20 gabapentin 1 cap PO TID 01/22/20 01/22/20 magnesium oxide 1 tab PO BID 01/22/20 01/22/20 metformin 1 tab PO BID 01/22/20 01/22/20 metoprolol succinate 1 tab PO DAILY 01/22/20 01/22/20 multivitamin [Daily-Ken[place]] 1 tab PO DAILY 01/22/20 01/22/20 multivitamin [One Daily 1 tab PO DAILY 01/22/20 01/22/20 Multivitamin] omeprazole 1 cap PO DAILY 01/22/20 01/22/20 pyridoxine (vitamin B6) 1 tab PO DAILY 01/22/20 01/22/20 spironolactone 1 tab PO DAILY 01/22/20 01/22/20 thiamine HCl (vitamin B1) 1 tab PO DAILY 01/22/20 01/22/20 trazodone 1 tab PO BEDTIME 01/22/20 01/22/20 Previous Rx's Medication Instructions Recorded chlordiazepoxide HCl 50 mg PO Q8H PRN #14 cap 01/28/20 Allergies Allergy/AdvReac Type Severity Reaction Status Date / Time Penicillins [PCN] Allergy Unknown UNKNOWN Verified 01/22/20 07:24 Review of Systems Review of Systems: ROS unable to be obtained due to altered mental status Yes Unobtainable due to mental status PMFSH Past Medical History Source: old records reviewed and nursing notes reviewed Medical History CAD (coronary artery disease) CHF (congestive heart failure) Diabetes ETOH abuse HTN (hypertension) Social History Social History Alcohol intake: current Alcohol intake frequency: 3 or more drinks per day Alcohol type: beer Smoking Status: Current every day smoker Smoked in Last 30 Days: No Use of substances other than those prescribed or required for medical reasons: No Advance Directives: No Advance Directives Information Provided: Yes service: No Current occupational status: unemployed Physical Exam Vital Signs: Vital Signs: Last Vital Signs Temp 98.7 F 03/26/20 19:58 Pulse 91 03/27/20 01:43 Resp 18 03/27/20 01:43 BP 126/99 H 03/27/20 01:43 Pulse Ox 94 03/27/20 01:43 Body Mass Index 38.0 Appearance: Alert. Oriented to self. moderate distress, altered mental status Eyes: Pupils equal, round and reactive to light. ENT: Pharynx normal. Neck: Normal inspection. Neck supple. CVS: tachycardic heart rate and rhythm. Pulses normal. Respiratory: No respiratory distress. Breath sounds normal. Abdomen: Soft and nontender, morbidly obese. Skin: Skin warm and dry flaking skin to lower extremities. hemosiderin consistent with venous stasis to bilateral lower extremities. Normal skin turgor. Extremities: No lower extremity edema. Neuro: No motor deficit. No sensory deficit. Course Course Course Narrative: 59-year-old male presents with altered mental status and ETOH intoxication. manager administrative is at bedside upon his arrival, patient is unable to answer any questions it is unknown whether this is secondary to EtOH intoxication or head trauma. CT scan completed immediately upon arrival. 1st troponin was 19, will repeat a 2nd. Second troponin is 18. CT scan of head and neck are negative for acute findings. Blood alcohol 360. patient does not have any one that can pick him up at this time, plan is to metabolize to freedom in the morning. MDM - Alcohol MDM Narrative Medical decision making narrative: Altered mental status, Wernicke encephalopathy, CVA, subdural hematoma, cervical spine fracture Differential Diagnosis Differential diagnosis: Likely alcohol dependence, alcohol intoxication and alcohol ketoacidosis Medical Records Attestation: I reviewed the patient's medical records. Lab Data Attestation: I reviewed the patient's lab results. Result diagrams: 03/26/20 19:12 03/26/20 19:12 Labs: Lab Results 03/26/20 03/26/20 03/26/20 Range/Units 19:12 19:12 19:12 WBC 8.2 (4.8-10.8) X10*3/uL RBC 4.22 L (4.60-5.80) X10*6/uL Hgb 13.4 L (14.0-18.0) g/dl Hct 40.3 L (42-52) % MCV 95.5 (80-98) fL MCH 31.8 (27.0-33.0) pg MCHC 33.3 (31.0-36.0) g/dl RDW 13.9 (11.0-16.0) % Plt Count 222 D (160-400) X10*3/uL MPV 9.9 (9.4-12.4) fL Immature Gran % (Auto) 0.4 (0.0-0.4) % Neut % (Auto) 60.0 (45-73) % Lymph % (Auto) 26.8 (20-40) % [place] % (Auto) 10.1 (2-11) % Eos % (Auto) 2.1 (0-4) % Baso % (Auto) 0.6 (0-2) % Lymph # (Auto) 2.2 (1.2-4.9) X10*3/uL [place] # (Auto) 0.8 (0.1-1.2) X10*3/uL Eos # (Auto) 0.2 (0.0-0.4) X10*3/uL Baso # (Auto) 0.1 (0.0-0.2) X10*3/uL Abs Immat Gran (auto) 0.03 (0.00-0.03) X10*3/uL Absolute Neuts (auto) 4.9 (2.0-8.3) X10*3/uL Absolute Nucleated RBC 0.000 (0.0-0.012) X10*3/uL Nucleated RBC % (auto) 0.0 (0.0-0.2) /100WBC Sodium 139 (135-145) mmol/L Potassium 4.7 D (3.3-5.1) mmol/l Chloride 106 (96-108) mmol/L Carbon Dioxide 19 L (22-29) mmol/L Anion Gap 19 (12-20) BUN 5 L (9-16) mg/dL Creatinine 1.00 (0.5-1.4) mg/dL Estim Creat Clear Calc 98.4 Estimated GFR > 60 POC Glucose (60-115) mg/dL Random Glucose 243 H (60-115) mg/dL Calcium 8.8 (8.4-10.2) mg/dL Troponin I High Sens 19.2 D (<3.5-35.0) ng/L Urine Color Urine Appearance Urine pH (5.0-8.0) Ur Specific [place] (1.005-1.025) Urine Protein (NEG-TRACE) MG/DL Urine Glucose (UA) (NEG) MG/DL Urine Ketones (NEG) MG/DL Urine Blood (NEG) Urine Nitrite (NEG) Ur Leukocyte Esterase (NEG) Urine RBC (0) /HPF Urine WBC (0-4) /HPF Ur Squamous Epith Cells /LPF Urine Bacteria /LPF Ethyl Alcohol mg/dL 03/26/20 03/26/20 03/26/20 Range/Units 19:12 19:56 23:56 WBC (4.8-10.8) X10*3/uL RBC (4.60-5.80) X10*6/uL Hgb (14.0-18.0) g/dl Hct (42-52) % MCV (80-98) fL MCH (27.0-33.0) pg MCHC (31.0-36.0) g/dl RDW (11.0-16.0) % Plt Count (160-400) X10*3/uL MPV (9.4-12.4) fL Immature Gran % (Auto) (0.0-0.4) % Neut % (Auto) (45-73) % Lymph % (Auto) (20-40) % [place] % (Auto) (2-11) % Eos % (Auto) (0-4) % Baso % (Auto) (0-2) % Lymph # (Auto) (1.2-4.9) X10*3/uL [place] # (Auto) (0.1-1.2) X10*3/uL Eos # (Auto) (0.0-0.4) X10*3/uL Baso # (Auto) (0.0-0.2) X10*3/uL Abs Immat Gran (auto) (0.00-0.03) X10*3/uL Absolute Neuts (auto) (2.0-8.3) X10*3/uL Absolute Nucleated RBC (0.0-0.012) X10*3/uL Nucleated RBC % (auto) (0.0-0.2) /100WBC Sodium (135-145) mmol/L Potassium (3.3-5.1) mmol/l Chloride (96-108) mmol/L Carbon Dioxide (22-29) mmol/L Anion Gap (12-20) BUN (9-16) mg/dL Creatinine (0.5-1.4) mg/dL Estim Creat Clear Calc Estimated GFR POC Glucose 180 H (60-115) mg/dL Random Glucose (60-115) mg/dL Calcium (8.4-10.2) mg/dL Troponin I High Sens (<3.5-35.0) ng/L Urine Color STRAW Urine Appearance CLEAR Urine pH 5.5 (5.0-8.0) Ur Specific [place] <= 1.005 (1.005-1.025) Urine Protein 2+ H (NEG-TRACE) MG/DL Urine Glucose (UA) 500 H (NEG) MG/DL Urine Ketones NEG (NEG) MG/DL Urine Blood 1+ H (NEG) Urine Nitrite NEG (NEG) Ur Leukocyte Esterase NEG (NEG) Urine RBC 5-9 H (0) /HPF Urine WBC 0 (0-4) /HPF Ur Squamous Epith Cells 1+ /LPF Urine Bacteria NONE /LPF Ethyl Alcohol 360 H* mg/dL 03/27/20 Range/Units 00:00 WBC (4.8-10.8) X10*3/uL RBC (4.60-5.80) X10*6/uL Hgb (14.0-18.0) g/dl Hct (42-52) % MCV (80-98) fL MCH (27.0-33.0) pg MCHC (31.0-36.0) g/dl RDW (11.0-16.0) % Plt Count (160-400) X10*3/uL MPV (9.4-12.4) fL Immature Gran % (Auto) (0.0-0.4) % Neut % (Auto) (45-73) % Lymph % (Auto) (20-40) % [place] % (Auto) (2-11) % Eos % (Auto) (0-4) % Baso % (Auto) (0-2) % Lymph # (Auto) (1.2-4.9) X10*3/uL [place] # (Auto) (0.1-1.2) X10*3/uL Eos # (Auto) (0.0-0.4) X10*3/uL Baso # (Auto) (0.0-0.2) X10*3/uL Abs Immat Gran (auto) (0.00-0.03) X10*3/uL Absolute Neuts (auto) (2.0-8.3) X10*3/uL Absolute Nucleated RBC (0.0-0.012) X10*3/uL Nucleated RBC % (auto) (0.0-0.2) /100WBC Sodium (135-145) mmol/L Potassium (3.3-5.1) mmol/l Chloride (96-108) mmol/L Carbon Dioxide (22-29) mmol/L Anion Gap (12-20) BUN (9-16) mg/dL Creatinine (0.5-1.4) mg/dL Estim Creat Clear Calc Estimated GFR POC Glucose (60-115) mg/dL Random Glucose (60-115) mg/dL Calcium (8.4-10.2) mg/dL Troponin I High Sens 18.3 (<3.5-35.0) ng/L Urine Color Urine Appearance Urine pH (5.0-8.0) Ur Specific [place] (1.005-1.025) Urine Protein (NEG-TRACE) MG/DL Urine Glucose (UA) (NEG) MG/DL Urine Ketones (NEG) MG/DL Urine Blood (NEG) Urine Nitrite (NEG) Ur Leukocyte Esterase (NEG) Urine RBC (0) /HPF Urine WBC (0-4) /HPF Ur Squamous Epith Cells /LPF Urine Bacteria /LPF Ethyl Alcohol mg/dL Imaging Data CT scan - head: Attestation: I personally reviewed and interpreted this imaging study as follows: Radiologist's impression: EXAMINATION: NONCONTRAST HEAD CT NONCONTRAST CERVICAL SPINE CT INDICATION INFORMATION: EtOH, fall, altered mental status COMPARISON: 01/27/2020 TECHNIQUE: Separate noncontrast CT examinations of the head and cervical spine were performed. Coronal head CT images and coronal and sagittal cervical spine images were created at the technologist workstation. DLP: 1616 mGy-cm DOSE LOWERING TECHNIQUES: This CT examination was performed using dose optimization techniques as appropriate, variously including the following: - Automated exposure control - Adjustment of mA and/or kV according to patient size (this includes techniques or standardized protocols for targeted exams were dose is matched to indication/reason for exam; i.e. extremities or head) - Use of iterative reconstruction technique FINDINGS: Head: There is no evidence of acute intracranial hemorrhage or territorial infarction. No abnormal mass-effect or midline shift is seen. Garcia to white matter differentiation is well preserved. No extra-axial fluid collections are identified. The ventricles are normal in size. There is mild periventricular white matter hypoattenuation consistent with chronic small vessel ischemic disease. Mild volume loss is noted. The osseous structures and soft tissues are normal. Left mastoid tip air cells are opacified. The visualized portions of the paranasal sinuses are well-aerated. Cervical spine: There is reversal of the normal cervical lordosis. There is anatomic alignment of the vertebral bodies and posterior elements. Vertebral body heights are maintained. There is partial fusion of the C2 and C3 vertebrae. Intervertebral disc spaces are otherwise relatively well preserved. No evidence of acute fracture. No prevertebral soft tissue swelling. Visualized portions of the lung apices are grossly unremarkable. The thyroid gland is unremarkable. CT/CT cervical spine wo con IMPRESSION: 1. Head: No acute intracranial findings. 2. Cervical spine: Reversal of the normal cervical lordosis, which could be due to positioning or muscle spasm. Otherwise no acute findings identified. Chest x-ray: Attestation: I personally reviewed and interpreted this imaging study as follows: Radiologist's impression: EXAMINATION: XR CHEST CLINICAL INFORMATION: EtOH, fall, altered mental status COMPARISON: 01/27/2020 TECHNIQUE: Frontal view of the chest was obtained. FINDINGS: Lung volumes are symmetric. No focal consolidation is seen. Mild nonspecific interstitial prominence is similar to prior. No evidence of pneumothorax or significant pleural effusion. Cardiac silhouette remains enlarged, similar to prior. No acute osseous findings are seen. XR/XR chest 1V IMPRESSION: Mild nonspecific interstitial prominence, similar to prior. In the proper clinical setting, subtle interstitial edema is a possibility. ECG Data Attestation: I personally reviewed and interpreted this ECG as follows: ECG interpretation date: 03/26/20 ECG interpretation time: 23:56 Prior ECG tracings: available for review Interpretation: AFib, right superior axis deviation, low-voltage QRS, inferior infarct age undetermined, cannot rule out anterior infarct age undetermined, abnormal EKG, ventricular rate 100 beats per minute, QRS duration 100 milliseconds, QTC 384, QTC 495 P-R-T axis * 270 83, When compared with ECG of 27-JAN-2020 23:52, No significant change was found Discharge Plan Discharge Clinical Impression: ETOH abuse Fall Qualifiers: Encounter type: initial encounter Qualified Code(s): W19.XXXA - Unspecified fall, initial encounter Patient Disposition: Home, Self-Care Instructions: Abuse of Alcohol (ED), Fall Prevention (ED) Additional Instructions: you were evaluated for injuries sustained from a fall. The CT scan of your head and neck are negative for acute findings. Your blood alcohol level was 360. please consider detox. Thank you for choosing this emergency department for evaluation. Please follow-up with primary care physician as needed. Return to the emergency department for any new, concerning, or worsening symptoms. Prescriptions: No Action chlordiazepoxide HCl 25 mg capsule 50 mg PO Q8H PRN (Reason: alcohol withdrawal) Qty: 14 RF: 0 multivitamin [Daily-[place]] Tablet 1 tab PO DAILY RF: 0 multivitamin [One Daily Multivitamin] Tablet 1 tab PO DAILY RF: 0 furosemide 40 mg tablet 1 tab PO BID RF: 0 atorvastatin 40 mg tablet 1 tab PO BEDTIME RF: 0 metformin 500 mg tablet 1 tab PO BID RF: 0 trazodone 50 mg tablet 1 tab PO BEDTIME RF: 0 metoprolol succinate 50 mg tablet extended release 24 hr 1 tab PO DAILY RF: 0 gabapentin 400 mg capsule 1 cap PO TID RF: 0 thiamine HCl (vitamin B1) 100 mg tablet 1 tab PO DAILY RF: 0 aspirin 81 mg tablet,delayed release (DR/EC) 1 tab PO DAILY RF: 0 spironolactone 25 mg tablet 1 tab PO DAILY RF: 0 magnesium oxide 400 mg (241.3 mg magnesium) tablet 1 tab PO BID RF: 0 pyridoxine (vitamin B6) 50 mg tablet 1 tab PO DAILY RF: 0 omeprazole 20 mg capsule,delayed release(DR/EC) 1 cap PO DAILY RF: 0 folic acid 1 mg tablet 1 tab PO DAILY RF: 0 Entresto 24-26 mg tablet 1 tab PO BID RF: 0
[2020-03-26 18:46] VITALS: BP 131/88; PULSE 112; RESP 17; TEMP 37.1; O2SAT 98; BMI 38.0
--- NOTE | 2020-03-26 18:50 | XR_ITS ---
EXAMINATION: XR CHEST CLINICAL INFORMATION: EtOH, fall, altered mental status COMPARISON: 01/27/2020 TECHNIQUE: Frontal view of the chest was obtained. FINDINGS: Lung volumes are symmetric. No focal consolidation is seen. Mild nonspecific interstitial prominence is similar to prior. No evidence of pneumothorax or significant pleural effusion. Cardiac silhouette remains enlarged, similar to prior. No acute osseous findings are seen. XR/XR chest 1V IMPRESSION: Mild nonspecific interstitial prominence, similar to prior. In the proper clinical setting, subtle interstitial edema is a possibility.
--- NOTE | 2020-03-26 19:13 | PC.NURSE ---
patient alert to self only, pt direct to ct scan, property assessment monitor applied pt sinus tach on monitor, vss, iv inserted, labs drawn, will continue to monitor.
[2020-03-26 19:20] LABS: MANUAL DIFF FLAG NO
[2020-03-26 19:24] LABS: Basophils Absolute Auto 0.1 X10*3/uL (0.0-0.2); Basophils Percent Auto 0.6 % (0-2); Eosinophils Absolute Auto 0.2 X10*3/uL (0.0-0.4); Eosinophils Percent Auto 2.1 % (0-4); Hematocrit 40.3 % (42-52); Hemoglobin 13.4 g/dl (14.0-18.0); Imm Gran Abs Auto 0.03 X10*3/uL (0.00-0.03); Imm Gran Pct Auto 0.4 % (0.0-0.4); Lymphocytes Absolute Auto 2.2 X10*3/uL (1.2-4.9); Lymphocytes Percent Auto 26.8 % (20-40); Mean Corpuscular HGB Conc 33.3 g/dl (31.0-36.0); Mean Corpuscular Hemoglobin 31.8 pg (27.0-33.0); Mean Corpuscular Volume 95.5 fL (80-98); Mean Platelet Volume 9.9 fL (9.4-12.4); Monocytes Absolute Auto 0.8 X10*3/uL (0.1-1.2); Monocytes Percent Auto 10.1 % (2-11); Neutrophils Absolute Auto 4.9 X10*3/uL (2.0-8.3); Platelet Count 222 X10*3/uL (160-400); Red Blood Count 4.22 X10*6/uL (4.60-5.80); Red Cell Distribution Width 13.9 % (11.0-16.0); White Blood Count 8.2 X10*3/uL (4.8-10.8)
[2020-03-26 19:43] LABS: Anion Gap 19 (12-20); Blood Urea Nitrogen 5 mg/dL (9-16); Calcium 8.8 mg/dL (8.4-10.2); Carbon Dioxide 19 mmol/L (22-29); Chloride 106 mmol/L (96-108); Creatinine Clr Calc Pharmacy 98.4; Estimated Glomerular Filt Rate > 60; Ethanol 360 mg/dL; Glucose Random 243 mg/dL (60-115); Potassium 4.7 mmol/l (3.3-5.1); Sodium 139 mmol/L (135-145)
[2020-03-26 19:49] LABS: Troponin-I High Sensitivity 19.2 ng/L (<3.5-35.0)
[2020-03-26 19:58] VITALS: BP 140/96; PULSE 113; RESP 17; TEMP 37.1; O2SAT 97
--- NOTE | 2020-03-26 19:59 | PC.NURSE ---
patient alert to self, sinus tach on desk monitor, vss, pt currently sleeping, urine obtained, will continue to monitor.
[2020-03-26 20:05] LABS: Appearance Urine CLEAR; Color Urine STRAW; Glucose Urine UA 500 MG/DL (NEG); Leukocyte Esterase Urine NEG (NEG); Nitrite Urine NEG (NEG); PH 5.5 (5.0-8.0); Specific Gravity - Urine <= 1.005 (1.005-1.025); Urine Blood 1+ (NEG); Urine Ketones NEG (NEG); Urine Protein 2+ MG/DL (NEG-TRACE)
[2020-03-26 20:13] LABS: Squamous Epithelial Cell Urine 1+ /LPF; WBC Urine 0 /HPF (0-4)
[2020-03-26 22:02] VITALS: BP 136/89; PULSE 108; RESP 18; O2SAT 98
--- NOTE | 2020-03-26 22:35 | PC.NURSE ---
patient sleeping, wakes to stimulus, vitals stable, pt etoh, will continue to monitor.
--- NOTE | 2020-03-26 23:28 | CT_ITS ---
EXAMINATION: NONCONTRAST HEAD CT NONCONTRAST CERVICAL SPINE CT INDICATION INFORMATION: EtOH, fall, altered mental status COMPARISON: 01/27/2020 TECHNIQUE: Separate noncontrast CT examinations of the head and cervical spine were performed. Coronal head CT images and coronal and sagittal cervical spine images were created at the technologist workstation. DLP: 1616 mGy-cm DOSE LOWERING TECHNIQUES: This CT examination was performed using dose optimization techniques as appropriate, variously including the following: - Automated exposure control - Adjustment of mA and/or kV according to patient size (this includes techniques or standardized protocols for targeted exams were dose is matched to indication/reason for exam; i.e. extremities or head) - Use of iterative reconstruction technique FINDINGS: Head: There is no evidence of acute intracranial hemorrhage or territorial infarction. No abnormal mass-effect or midline shift is seen. Garcia to white matter differentiation is well preserved. No extra-axial fluid collections are identified. The ventricles are normal in size. There is mild periventricular white matter hypoattenuation consistent with chronic small vessel ischemic disease. Mild volume loss is noted. The osseous structures and soft tissues are normal. Left mastoid tip air cells are opacified. The visualized portions of the paranasal sinuses are well-aerated. Cervical spine: There is reversal of the normal cervical lordosis. There is anatomic alignment of the vertebral bodies and posterior elements. Vertebral body heights are maintained. There is partial fusion of the C2 and C3 vertebrae. Intervertebral disc spaces are otherwise relatively well preserved. No evidence of acute fracture. No prevertebral soft tissue swelling. Visualized portions of the lung apices are grossly unremarkable. The thyroid gland is unremarkable. CT/CT cervical spine wo con IMPRESSION: 1. Head: No acute intracranial findings. 2. Cervical spine: Reversal of the normal cervical lordosis, which could be due to positioning or muscle spasm. Otherwise no acute findings identified.
[2020-03-26 23:30] VITALS: BP 127/93; PULSE 109; RESP 16; O2SAT 96
--- NOTE | 2020-03-26 23:41 | ECG_ITS ---
Test Reason : FALL Blood Pressure : / mmHG Vent. Rate : 100 BPM Atrial Rate : 115 BPM P-R Int : 000 ms QRS Dur : 100 ms QT Int : 384 ms P-R-T Axes : 000 270 083 degrees QTc Int : 495 ms Atrial fibrillation Right superior axis deviation Low voltage QRS Inferior infarct (cited on or before 02-JUL-2016) Cannot rule out Anterior infarct (cited on or before 02-JUL-2016) Abnormal ECG When compared with ECG of 27-JAN-2020 23:52, No significant change was found Referred By: Ila Soto Electronically Signed By:COLIN LLAMAS MD
--- NOTE | 2020-03-26 23:48 | PC.NURSE ---
c-collar removed by provider. pt changed into hospital gown, ekg performed per order.
[2020-03-27 00:02] LABS: Glucose, Whole Blood 180 mg/dL (60-115)
--- NOTE | 2020-03-27 00:27 | PC.NURSE ---
regular insulin held, pt's poc 180. pt awake and alert, following all commands and able to answer most questions in [place] through interpretor. pt asked for a phone number of family, for ride home once discharged. pt unable to provide number, but repeated his home address a few times.
[2020-03-27 00:52] LABS: Troponin-I High Sensitivity 18.3 ng/L (<3.5-35.0)
[2020-03-27 01:43] VITALS: BP 126/99; PULSE 91; RESP 18; O2SAT 94
--- NOTE | 2020-03-27 02:39 | PC.NURSE ---
PT READY FOR DISCHARGE, AMBULATORY WITH STEADY GAIT TO THE BATHROOM. IV REMOVED AND PT DRESSED. PT ABLE TO PROVIDE SISTER'S NUMBER NEYDA WELLS [phone]. SISTER NOT ANSWERING PHONE, PT ENCOURAGED TO STAY UNTIL DAYLIGHT, BEFORE WALKING HOME. PT PREFERRED A RECLINER TO REST IN. PT REQUESTED WATER.
--- NOTE | 2020-03-27 04:10 | PC.NURSE ---
PT SLEEPING IN RECLINER, GOOD RESPIRATORY EFFORT AND RATE.
--- NOTE | 2020-03-27 04:33 | PC.NURSE ---
PT GOT UP FROM RECLINER AND WALKED OUT OF HIS ROOM, PT ASKING ANOTHER DISCHARGED PATIENT FOR A RIDE. PT ASKED WAS NOT INTERESTED IN HIS DISCHARGE PAPERWORK. PT AMBULATORY WITH STEADY GAIT.
== END 2020-03-27 04:38 | disposition home or self-care (01) ==
PROVIDERS: Nurse Practitioner Family; Emergency Provider Emergency Medicine
DX: F10.129 Alcohol abuse with intoxication, unspecified (principal); R41.82 Altered mental status, unspecified; M54.2 Cervicalgia; M54.5 Low back pain; Y90.8 Blood alcohol level of 240 mg/100 ml or more; F17.200 Nicotine dependence, unspecified, uncomplicated; Z71.6 Tobacco abuse counseling; Z79.899 Other long term (current) drug therapy
CPT/HCPCS: 36415; 70450; 71045; 72125; 80048; 80320; 81001; 82947; 84484; 85025; 93005; 99284

== ENCOUNTER 2020-05-02 11:27 | Inpatient (IN) | payer MEDICARE, MEDICAID, SELFPAY ==
[2020-05-02] VITALS (10 sets, daily range): BP systolic 121–184; BP diastolic 69–114; PULSE 82–140; RESP 16–27; TEMP 35.9–36.9; O2SAT 96–100; BMI 38.2
--- NOTE | 2020-05-02 12:22 | ECG_ITS ---
Test Reason : TACHYCARDIA Blood Pressure : / mmHG Vent. Rate : 116 BPM Atrial Rate : 120 BPM P-R Int : 000 ms QRS Dur : 082 ms QT Int : 356 ms P-R-T Axes : 000 -70 076 degrees QTc Int : 494 ms Atrial fibrillation with rapid ventricular response Left axis deviation Anteroseptal infarct (cited on or before 02-JUL-2016) Abnormal ECG When compared with ECG of 26-MAR-2020 23:56, QRS duration has decreased Criteria for Inferior infarct are no longer Present Referred By: Audrey Martin Electronically Signed By:COLIN LLAMAS MD
--- NOTE | 2020-05-02 12:22 | XR_ITS ---
EXAMINATION: XR CHEST CLINICAL INFORMATION: Shortness of breath. COMPARISON: Most recent chest radiograph dated 03/26/2020. TECHNIQUE: Frontal view of the chest was obtained. FINDINGS: Mild interstitial prominence with patchy bilateral airspace opacities, slightly more prominent when compared to the prior examination. Findings can be seen in the setting of an infectious or inflammatory process. No pleural effusion or pneumothorax. Stable cardiomediastinal silhouette. XR/XR chest 1V IMPRESSION: Mild interstitial prominence with patchy bilateral airspace opacities, slightly more prominent when compared to the prior examination. Findings can be seen in the setting of an infectious or inflammatory process, including viral pneumonia.
--- NOTE | 2020-05-02 12:52 | ED_ITS ---
HPI - General Adult General Chief complaint: General Medical Stated complaint: UNKNOWN Time Seen by Provider: 05/02/20 12:22 Source: patient and EMS Mode of arrival: EMS Limitations: no limitations History of Present Illness HPI narrative: 59 y/o male with history of ETOH abuse with ETOH cirrhosis, atrial fibrillation (not on a/c), HTN, HFrEF, CAD, DM, hx fall who presents to the ED via EMS with reports of nausea, vomiting and diarrhea for the last 5 days. This is associated with headaches, generalized abdominal pain, as well as SOB that started today. He states he has a dry cough and some intermittent chest discomfort when he coughs. Denies fevers but has shaking chills at night. He is a poor historian. MD complaint: N/V/D Onset (ago): day(s) (5) Location: head, chest and abdomen Radiation: non-radiation Quality: aching Pain Consistency: constant Relieving factors: none Exacerbating factors: movement Associated symptoms: chest pain, cough, fever/chills, headaches, loss of appetite, malaise, nausea/vomiting, shortness of breath and weakness Treatments prior to arrival: none Related Data Home Medications Medication Instructions Recorded Confirmed Entresto 1 tab PO BID 01/22/20 01/22/20 aspirin 1 tab PO DAILY 01/22/20 01/22/20 atorvastatin 1 tab PO BEDTIME 01/22/20 01/22/20 folic acid 1 tab PO DAILY 01/22/20 01/22/20 furosemide 1 tab PO BID 01/22/20 01/22/20 gabapentin 1 cap PO TID 01/22/20 01/22/20 magnesium oxide 1 tab PO BID 01/22/20 01/22/20 metformin 1 tab PO BID 01/22/20 01/22/20 metoprolol succinate 1 tab PO DAILY 01/22/20 01/22/20 multivitamin [Daily-[place]] 1 tab PO DAILY 01/22/20 01/22/20 multivitamin [One Daily 1 tab PO DAILY 01/22/20 01/22/20 Multivitamin] omeprazole 1 cap PO DAILY 01/22/20 01/22/20 pyridoxine (vitamin B6) 1 tab PO DAILY 01/22/20 01/22/20 spironolactone 1 tab PO DAILY 10/03/20 10/03/20 thiamine HCl (vitamin B1) 1 tab PO DAILY 01/22/20 01/22/20 trazodone 1 tab PO BEDTIME 01/22/20 01/22/20 Previous Rx's Medication Instructions Recorded chlordiazepoxide HCl 50 mg PO Q8H PRN #14 cap 01/28/20 Allergies Allergy/AdvReac Type Severity Reaction Status Date / Time Penicillins [PCN] Allergy Unknown UNKNOWN Verified 05/02/20 11:57 Review of Systems Review of Systems: Constitutional: + Fever, + Chills ENT/Mouth: No sore throat, No Rhinorrhea, No Swallowing Difficulty Eyes: No Eye Pain, No Swelling, No Redness Cardiovascular: + Chest Pain, + SOB, No Orthopnea, No Edema Respiratory: + Cough, No Sputum, No Wheezing, + dyspnea Gastrointestinal: + Nausea, + Vomiting, + Diarrhea, + abdominal Pain Genitourinary: No Dysuria, No Urinary Frequency, No Hematuria Musculoskeletal: No joint pain, + Myalgias Skin: No Skin Lesions, No rash Neuro: + Weakness, No Numbness, No Dizziness, + Headache Heme/Lymph: No Bruising, No Lymphadenopathy PMFSH Past Medical History Attestation statement: The following information was validated with the patient. Medical History (Updated 05/02/20 @ 14:33 by YAYA Wolf) A-fib CAD (coronary artery disease) CHF (congestive heart failure) Cirrhosis Diabetes ETOH abuse HTN (hypertension) Social History Social History Alcohol intake: current Alcohol intake frequency: 3 or more drinks per day Alcohol type: beer Smoking Status: Current every day smoker Advance Directives: No Advance Directives Information Provided: No service: No Current occupational status: unemployed Physical Exam Vital Signs: Vital Signs: Last Vital Signs Temp 98.5 F 05/02/20 12:00 Pulse 115 H 05/02/20 14:49 Resp 16 05/02/20 14:49 BP 156/110 H 05/02/20 14:49 Pulse Ox 97 05/02/20 13:23 Body Mass Index 38.2 Appearance: Alert. Oriented X3. No acute distress. Eyes: Pupils equal, round and reactive to light. ENT: Pharynx normal. Neck: Normal inspection. Neck supple. CVS: irregularly irregular, rapid rate Pulses normal. Respiratory: Mild respiratory distress with shallow, rapid respirations at times, lungs are clear throughout Abdomen: Soft with mild lower abdominal tenderness, no rebound or guarding, hyperactive +BS x4 Skin: Skin warm and dry. Normal skin color. Normal skin turgor. No rashes. Extremities: No lower extremity edema. Neuro: Oriented X 3. Non-focal. Course Course Course Narrative: 59 y/o male presenting with flu-like/COVID-like symptoms for t he last 5 days with N/V/D and now SOB. Found to be in rapid afib on arrival with HR 100-150's and SBP 160-180's. On metoprolol at home - will give 5 mg IV Lopressor now and 1L IVF. Suspect dehydration/GI lossess and viral sepsis are driving factors. Concern for COVID-19 infection. Unknown EF so will need to be cautious with rapid IVF infusion. COVID workup ordered. Placed on Zoll for now. No hypoxia, SpO2 97% on RA. Will monitor closely. Will likely require admission. Reevaluation(s) Reevaluation #1: 1:45pm - Lactic acid 3.5 suspect alcoholic ketoacidosis with +ETOH level and longstanding ETOH abuse. 2nd liter IVF ordered but will need to infuse slowly given tenuous respiratory status and hx HFrEF, unknown ejection f raction. BNP 98 which is reassuring. Based on ideal body weight of 150lbs, 2,000 cc IVF is adequate for sepsis IVF resuscitation. CXR showing patchy bilateral opacities - concerning for COVID-19. Reevaluation #2: 2:20 pm - Viral resp panel NEGATIVE. Given CXR findings will cover for possible CAP with azithromycin and Rocephin. Awaiting UA. HR remains 100-120's with SBP 140's - will give 2nd dose of IV Lopressor and reassess. Will call hospitalist for admission. Reevaluation #3: 3:30 - spoke with Dr. Harman who will admit. Will add CT chest for further workup of SOB. Medical Decision Making Lab Data Result diagrams: 05/02/20 12:55 05/02/20 12:54 Labs: Lab Results 05/02/20 05/02/20 05/02/20 Range/Units 12:54 12:54 12:55 WBC 9.0 (4.8-10.8) X10*3/uL RBC 4.12 L (4.60-5.80) X10*6/uL Hgb 13.2 L (14.0-18.0) g/dl Hct 38.7 L (42-52) % MCV 93.9 (80-98) fL MCH 32.0 (27.0-33.0) pg MCHC 34.1 (31.0-36.0) g/dl RDW 13.8 (11.0-16.0) % Plt Count 102 L D (160-400) X10*3/uL MPV 10.4 (9.4-12.4) fL Immature Gran % (Auto) 0.3 (0.0-0.4) % Neut % (Auto) 82.9 H (45-73) % Lymph % (Auto) 12.0 L (20-40) % [place] % (Auto) 4.4 (2-11) % Eos % (Auto) 0.1 (0-4) % Baso % (Auto) 0.3 (0-2) % Lymph # (Auto) 1.1 L (1.2-4.9) X10*3/uL [place] # (Auto) 0.4 (0.1-1.2) X10*3/uL Eos # (Auto) 0.0 (0.0-0.4) X10*3/uL Baso # (Auto) 0.0 (0.0-0.2) X10*3/uL Abs Immat Gran (auto) 0.03 (0.00-0.03) X10*3/uL Absolute Neuts (auto) 7.5 (2.0-8.3) X10*3/uL Absolute Nucleated RBC 0.000 (0.0-0.012) X10*3/uL Nucleated RBC % (auto) 0.0 (0.0-0.2) /100WBC Hold Blue Top Sodium 138 (135-145) mmol/L Potassium 4.0 (3.3-5.1) mmol/l Chloride 104 (96-108) mmol/L Carbon Dioxide 20 L (22-29) mmol/L Anion Gap 18 (12-20) BUN 5 L (9-16) mg/dL Creatinine 0.67 (0.5-1.4) mg/dL Estim Creat Clear Calc 147.2 Estimated GFR > 60 Random Glucose 208 H (60-115) mg/dL Lactic Acid (0.5-2.0) mmol/L Calcium 8.3 L (8.4-10.2) mg/dL Magnesium 1.4 L* (1.6-2.6) mg/dL Total Bilirubin 1.0 (0.0-1.0) mg/dL Direct Bilirubin 0.6 H (0.0-0.5) mg/dL AST 48 H D (5-37) U/L ALT 38 (0-40) U/L Alkaline Phosphatase 104 (39-117) U/L Troponin I High Sens (<3.5-35.0) ng/L C-Reactive Protein 1.02 H (< or = 0.50) mg/dL B-Natriuretic Peptide (<100) pg/mL Total Protein 7.5 (6.5-8.0) g/dL Albumin 3.8 (3.5-5.0) g/dL Procalcitonin ng/mL Ethyl Alcohol mg/dL Coronavirus (PCR) NEGATIVE (Negative) Influenza Type A (PCR) NEGATIVE (Negative) Influenza Type B (PCR) NEGATIVE (Negative) RSV RNA Qual (PCR) NEGATIVE (Negative) 05/02/20 05/02/20 05/02/20 Range/Units 12:56 12:56 12:56 WBC (4.8-10.8) X10*3/uL RBC (4.60-5.80) X10*6/uL Hgb (14.0-18.0) g/dl Hct (42-52) % MCV (80-98) fL MCH (27.0-33.0) pg MCHC (31.0-36.0) g/dl RDW (11.0-16.0) % Plt Count (160-400) X10*3/uL MPV (9.4-12.4) fL Immature Gran % (Auto) (0.0-0.4) % Neut % (Auto) (45-73) % Lymph % (Auto) (20-40) % [place] % (Auto) (2-11) % Eos % (Auto) (0-4) % Baso % (Auto) (0-2) % Lymph # (Auto) (1.2-4.9) X10*3/uL [place] # (Auto) (0.1-1.2) X10*3/uL Eos # (Auto) (0.0-0.4) X10*3/uL Baso # (Auto) (0.0-0.2) X10*3/uL Abs Immat Gran (auto) (0.00-0.03) X10*3/uL Absolute Neuts (auto) (2.0-8.3) X10*3/uL Absolute Nucleated RBC (0.0-0.012) X10*3/uL Nucleated RBC % (auto) (0.0-0.2) /100WBC Hold Blue Top SEE NOTE Sodium (135-145) mmol/L Potassium (3.3-5.1) mmol/l Chloride (96-108) mmol/L Carbon Dioxide (22-29) mmol/L Anion Gap (12-20) BUN (9-16) mg/dL Creatinine (0.5-1.4) mg/dL Estim Creat Clear Calc Estimated GFR Random Glucose (60-115) mg/dL Lactic Acid 3.5 H* (0.5-2.0) mmol/L Calcium (8.4-10.2) mg/dL Magnesium (1.6-2.6) mg/dL Total Bilirubin (0.0-1.0) mg/dL Direct Bilirubin (0.0-0.5) mg/dL AST (5-37) U/L ALT (0-40) U/L Alkaline Phosphatase (39-117) U/L Troponin I High Sens 38.2 H D (<3.5-35.0) ng/L C-Reactive Protein (< or = 0.50) mg/dL B-Natriuretic Peptide 98 (<100) pg/mL Total Protein (6.5-8.0) g/dL Albumin (3.5-5.0) g/dL Procalcitonin ng/mL Ethyl Alcohol mg/dL Coronavirus (PCR) (Negative) Influenza Type A (PCR) (Negative) Influenza Type B (PCR) (Negative) RSV RNA Qual (PCR) (Negative) 05/02/20 05/02/20 Range/Units 12:56 12:56 WBC (4.8-10.8) X10*3/uL RBC (4.60-5.80) X10*6/uL Hgb (14.0-18.0) g/dl Hct (42-52) % MCV (80-98) fL MCH (27.0-33.0) pg MCHC (31.0-36.0) g/dl RDW (11.0-16.0) % Plt Count (160-400) X10*3/uL MPV (9.4-12.4) fL Immature Gran % (Auto) (0.0-0.4) % Neut % (Auto) (45-73) % Lymph % (Auto) (20-40) % [place] % (Auto) (2-11) % Eos % (Auto) (0-4) % Baso % (Auto) (0-2) % Lymph # (Auto) (1.2-4.9) X10*3/uL [place] # (Auto) (0.1-1.2) X10*3/uL Eos # (Auto) (0.0-0.4) X10*3/uL Baso # (Auto) (0.0-0.2) X10*3/uL Abs Immat Gran (auto) (0.00-0.03) X10*3/uL Absolute Neuts (auto) (2.0-8.3) X10*3/uL Absolute Nucleated RBC (0.0-0.012) X10*3/uL Nucleated RBC % (auto) (0.0-0.2) /100WBC Hold Blue Top Sodium (135-145) mmol/L Potassium (3.3-5.1) mmol/l Chloride (96-108) mmol/L Carbon Dioxide (22-29) mmol/L Anion Gap (12-20) BUN (9-16) mg/dL Creatinine (0.5-1.4) mg/dL Estim Creat Clear Calc Estimated GFR Random Glucose (60-115) mg/dL Lactic Acid (0.5-2.0) mmol/L Calcium (8.4-10.2) mg/dL Magnesium (1.6-2.6) mg/dL Total Bilirubin (0.0-1.0) mg/dL Direct Bilirubin (0.0-0.5) mg/dL AST (5-37) U/L ALT (0-40) U/L Alkaline Phosphatase (39-117) U/L Troponin I High Sens (<3.5-35.0) ng/L C-Reactive Protein (< or = 0.50) mg/dL B-Natriuretic Peptide (<100) pg/mL Total Protein (6.5-8.0) g/dL Albumin (3.5-5.0) g/dL Procalcitonin < 0.02 ng/mL Ethyl Alcohol 100 mg/dL Coronavirus (PCR) (Negative) Influenza Type A (PCR) (Negative) Influenza Type B (PCR) (Negative) RSV RNA Qual (PCR) (Negative) Scores [place] PE Heart rate > 100 p/min: 1.5 Score: 1.5 2-tier Risk: unlikely risk (5%) 3-tier Risk: low risk (3.4%) Critical Care Time Critical Care Time Critical Care Time: Yes Total Critical Care Time: 60 Attestation: I attest to critical care time spent caring for this patient with rapid afib, lactic acidosis. Frequent bedside reassessments of hemodynamics and respiratory status. Discharge Plan Discharge Clinical Impression: Acidosis, lactic, Atrial fibrillation, rapid Pneumonia Qualifiers: Pneumonia type: due to unspecified organism Laterality: bilateral Lung location: unspecified part of lung Qualified Code(s): J18.9 - Pneumonia, unspecified organism Patient Disposition: Admitted As Inpatient
[2020-05-02 13:03] LABS: MANUAL DIFF FLAG NO
[2020-05-02 13:06] LABS: Basophils Percent Auto 0.3 % (0-2); Eosinophils Percent Auto 0.1 % (0-4); Hematocrit 38.7 % (42-52); Hemoglobin 13.2 g/dl (14.0-18.0); Imm Gran Abs Auto 0.03 X10*3/uL (0.00-0.03); Imm Gran Pct Auto 0.3 % (0.0-0.4); Lymphocytes Absolute Auto 1.1 X10*3/uL (1.2-4.9); Mean Corpuscular HGB Conc 34.1 g/dl (31.0-36.0); Mean Corpuscular Volume 93.9 fL (80-98); Mean Platelet Volume 10.4 fL (9.4-12.4); Monocytes Absolute Auto 0.4 X10*3/uL (0.1-1.2); Monocytes Percent Auto 4.4 % (2-11); Neutrophils Absolute Auto 7.5 X10*3/uL (2.0-8.3); Neutrophils Percent Auto 82.9 % (45-73); Platelet Count 102 X10*3/uL (160-400); Red Blood Count 4.12 X10*6/uL (4.60-5.80); Red Cell Distribution Width 13.8 % (11.0-16.0)
[2020-05-02 13:31] LABS: Lactic Acid 3.5 mmol/L (0.5-2.0)
[2020-05-02 13:32] LABS: Ethanol 100 mg/dL
[2020-05-02 13:38] LABS: Alanine Aminotransferase 38 U/L (0-40); Albumin Level 3.8 g/dL (3.5-5.0); Alkaline Phosphatase 104 U/L (39-117); Anion Gap 18 (12-20); Aspartate Amino Transferase 48 U/L (5-37); Bilirubin Direct 0.6 mg/dL (0.0-0.5); Blood Urea Nitrogen 5 mg/dL (9-16); C Reactive Protein 1.02 mg/dL (< or = 0.50); Calcium 8.3 mg/dL (8.4-10.2); Carbon Dioxide 20 mmol/L (22-29); Chloride 104 mmol/L (96-108); Creatinine Clr Calc Pharmacy 147.2; Estimated Glomerular Filt Rate > 60; Glucose Random 208 mg/dL (60-115); Magnesium 1.4 mg/dL (1.6-2.6); Sodium 138 mmol/L (135-145); Total Protein 7.5 g/dL (6.5-8.0)
[2020-05-02 13:40] LABS: B Type Natriuretic Peptide 98 pg/mL (<100); Troponin-I High Sensitivity 38.2 ng/L (<3.5-35.0)
[2020-05-02] MEDS: 0.9 % Sodium Chloride 1,000 ML 999 ML IVCONT ×2 (13:42→15:44)
[2020-05-02] MEDS: Metoprolol Tartrate 5 MG/5 ML VIAL IVPUSH ×2 (13:42→14:44)
[2020-05-02] MEDS: ondansetron HCL 4 MG/2 ML VIAL IVPUSH (13:42)
[2020-05-02 13:52] LABS: Procalcitonin < 0.02 ng/mL
[2020-05-02 13:57] LABS: Influenza A PCR NEGATIVE (Negative); Influenza B PCR NEGATIVE (Negative); Resp Syncy Virus RNA Qual PCR NEGATIVE (Negative); SARS COV2 PCR INHOUSE NEGATIVE (Negative)
[2020-05-02] MEDS: Magnesium Sulfate/H2O 2 GM/50 ML PIGGYBACK IV (14:43)
[2020-05-02] MEDS: cefTRIAXone sodium 1 GM in 0.9 % Sodium Chloride 50 ML IV (14:43)
[2020-05-02 15:01] LABS: Reflex Lactate? Lactic Acid Added
[2020-05-02] MEDS: Azithromycin 500 MG in 0.9 % Sodium Chloride 250 ML 125 MG IV (15:48)
[2020-05-02 15:55] LABS: D Dimer 1873 NG/ML
--- NOTE | 2020-05-02 15:59 | CT_ITS ---
EXAMINATION: CT ANGIOGRAM OF THE CHEST WITH AND WITHOUT CONTRAST (CT PULMONARY ANGIOGRAM FOR PE) CLINICAL INFORMATION: Reason for Exam SOB, bilateral infiltrates on CXR, elevated DDIMER COMPARISON: None TECHNIQUE: Prior to contrast administration, noncontrast localization images were obtained. Subsequently, multidetector volumetric imaging was performed from the thoracic inlet to below the diaphragms following the administration of 80 mL Omnipaque 350 intravenous contrast. No contrast reaction reported Sagittal, coronal, and MIP oblique sagittal reformatted images were obtained on the CT workstation, uploaded to PACS, and reviewed. This CT examination was performed using dose optimization techniques as appropriate, variously including the following: *Automated exposure control *Adjustment of mA and/or kV according to patient size (this includes techniques or standardized protocols for targeted exams where dose is matched to indication/reason for exam; i.e. extremities or head) *Use of iterative reconstruction technique Total exam dose-length product of 35 mGy-cm FINDINGS: QUALITY OF STUDY/CONTRAST BOLUS: Satisfactory. PULMONARY ARTERIES: No central or segmental pulmonary emboli. THORACIC AORTA: There is mild dilatation of ascending aorta measuring 4.6 x 4.3 cm. The arch and descending thoracic aorta are normal caliber. LUNG: The lungs are expanded with ill-defined patchy opacities seen in right upper lobe, left upper lobe, right middle lobe and right lower lobe. PLEURA: There is a small right pleural effusion. No pleural thickening or calcification seen. MEDIASTINUM: Size enlarged. There is no pericardial effusion. There are coronary artery calcium patient's present. Small reactionary lymph nodes node seen in bilateral hilum. No abnormal lymph nodes seen in the mediastinum. The thyroid lobes are symmetrical and normal. No evidence of septal bowing or right heart strain. CHEST WALL/AXILLA: No axillary or internal mammary lymphadenopathy. OSSEOUS STRUCTURES: There is no lytic or sclerotic process seen. UPPER ABDOMEN: Visualized liver, spleen, pancreas and bilateral adrenal glands are unremarkable. No reflux of contrast into the hepatic veins to suggest elevated right heart pressures. CT/CT angio chest PE protocol IMPRESSION: No evidence of PE. Mild aneurysmal dilatation of ascending aorta. Patchy scattered opacities in throughout the lungs suggestive of underlying inflammatory or infectious etiology. Small right pleural effusion. VTE: negative
[2020-05-02] MEDS: iohexoL 350 MG/ML 100 ML INFUS..BTL IV (16:50)
[2020-05-02 17:19] LABS: Glucose Urine UA 500 MG/DL (NEG); Leukocyte Esterase Urine NEG (NEG); Nitrite Urine NEG (NEG); PH 5.5 (5.0-8.0); Specific Gravity - Urine >= 1.030 (1.005-1.025); Urine Blood 2+ (NEG); Urine Ketones 5 MG/DL (NEG); Urine Protein 2+ MG/DL (NEG-TRACE)
[2020-05-02 17:22] LABS: Appearance Urine CLEAR; Color Urine YELLOW
--- NOTE | 2020-05-02 17:34 | PM.IMHP ---
History of Present Illness Date of Service: 05/02/20 Chief Complaint: Palpitations 59-year-old Japanese-speaking male with multiple medical problems including CAD s/p stent, cardiomyopathy, AFIB not anticoagulated due to chronic alcohol use and non compliant, diabetes, history of ETOH abuse with ETOH cirrhosis,HFrEF, DM and hx fall who presents to the ED [facility] with reports of nausea, vomiting and diarrhea for the last 5 days and started having palpitations today. He report no sob, fever or chills. He denies covid contact but his sister is down the [place] and diagnosed with COVID and he last had contact with her just yesterday. He was noted to be in AFIB with RVR. CXR show no airway disease. He has no SOB, no cough and fever. He's given Azithro and ceftriaxone for PNA. IV metoprolol given to control heart rate. Magnesium is low and replaced. Review of Systems Review of Systems: Yes all other systems are reviewed and are negative Cardiovascular: Cardiovascular: Reports no additional cardiovascular complaints, Denies dyspnea and Reports dyspnea on exertion Comments: Palpitations Respiratory: Respiratory: Denies dyspnea and Reports dyspnea on exertion Gastrointestinal: Gastrointestinal: Reports no additional gastrointestinal complaints [facility] Medical History A-fib CAD (coronary artery disease) Cardiomyopathy CHF (congestive heart failure) Cirrhosis Depression Diabetes ETOH abuse HTN (hypertension) Social History Alcohol intake: current Alcohol intake frequency: 3 or more drinks per day Alcohol type: beer Smoking Status: Current every day smoker Advance Directives: No Advance Directives Information Provided: No service: No Current occupational status: unemployed Meds Allergies Allergy/AdvReac Type Severity Reaction Status Date / Time Penicillins [PCN] Allergy Unknown UNKNOWN Verified 05/02/20 11:57 Home Medications Medication Instructions Recorded Confirmed Type Entresto 1 tab PO BID 01/22/20 01/22/20 History aspirin 1 tab PO DAILY 01/22/20 01/22/20 History atorvastatin 1 tab PO BEDTIME 01/22/20 01/22/20 History folic acid 1 tab PO DAILY 01/22/20 01/22/20 History furosemide 1 tab PO BID 01/22/20 01/22/20 History gabapentin 1 cap PO TID 01/22/20 01/22/20 History magnesium oxide 1 tab PO BID 01/22/20 01/22/20 History metformin 1 tab PO BID 01/22/20 01/22/20 History metoprolol succinate 1 tab PO DAILY 01/22/20 01/22/20 History multivitamin [Daily-[place]] 1 tab PO DAILY 01/22/20 01/22/20 History multivitamin [One Daily 1 tab PO DAILY 01/22/20 01/22/20 History Multivitamin] omeprazole 1 cap PO DAILY 01/22/20 01/22/20 History pyridoxine (vitamin B6) 1 tab PO DAILY 01/22/20 01/22/20 History spironolactone 1 tab PO DAILY 01/22/20 01/22/20 History thiamine HCl (vitamin B1) 1 tab PO DAILY 01/22/20 01/22/20 History trazodone 1 tab PO BEDTIME 01/22/20 01/22/20 History Physical Exam Vital Signs and Narrative: Vital Signs: Last Vital Signs Temp 98.5 F 05/02/20 12:00 Pulse 115 H 05/02/20 14:49 Resp 16 05/02/20 14:49 BP 156/110 H 05/02/20 14:49 Pulse Ox 97 05/02/20 13:23 Body Mass Index 38.2 Const: General: cooperative Orientation/consciousness: patient oriented x3 HENMT: Head: Yes normal to inspection Neck: Yes no JVD Chest: Chest palpation & inspection: normal inspection of the chest Cardio: Jugular venous distension: no JVD Rate: tachycardic and Other (iregular) Heart sounds: S1 normal heart sound present and S2 normal heart sound present GI: Inspection: Yes normal to inspection Palpation (GI): Soft to palpation and nontender Skin: General skin exam: no rashes or lesions noted Neuro: General: patient oriented x3 Motor exam (neuro): Normal motor muscle tone present throughout Results Labs CBC and Chem 7: 05/02/20 12:55 05/02/20 12:54 Labs: Laboratory Results - last 24 hr 05/02/20 05/02/20 05/02/20 12:54 12:54 12:55 MCV 93.9 MCH 32.0 MCHC 34.1 RDW 13.8 Plt Count 102 L D MPV 10.4 Immature Gran % (Auto) 0.3 Neut % (Auto) 82.9 H Lymph % (Auto) 12.0 L [place] % (Auto) 4.4 Eos % (Auto) 0.1 Baso % (Auto) 0.3 Lymph # (Auto) 1.1 L [place] # (Auto) 0.4 Eos # (Auto) 0.0 Baso # (Auto) 0.0 Abs Immat Gran (auto) 0.03 Absolute Neuts (auto) 7.5 Absolute Nucleated RBC 0.000 Nucleated RBC % (auto) 0.0 D-Dimer Hold Blue Top Anion Gap 18 Estim Creat Clear Calc 147.2 Estimated GFR > 60 Random Glucose 208 H Lactic Acid Calcium 8.3 L Magnesium 1.4 L* Total Bilirubin 1.0 Direct Bilirubin 0.6 H AST 48 H D ALT 38 Alkaline Phosphatase 104 Troponin I High Sens C-Reactive Protein 1.02 H B-Natriuretic Peptide Total Protein 7.5 Albumin 3.8 Procalcitonin Urine Color Urine Appearance Urine pH Ur Specific [place] Urine Protein Urine Glucose (UA) Urine Ketones Urine Blood Urine Nitrite Ur Leukocyte Esterase Ethyl Alcohol Coronavirus (PCR) NEGATIVE Influenza Type A (PCR) NEGATIVE Influenza Type B (PCR) NEGATIVE RSV RNA Qual (PCR) NEGATIVE 05/02/20 05/02/20 05/02/20 12:56 12:56 12:56 MCV MCH MCHC RDW Plt Count MPV Immature Gran % (Auto) Neut % (Auto) Lymph % (Auto) [place] % (Auto) Eos % (Auto) Baso % (Auto) Lymph # (Auto) [place] # (Auto) Eos # (Auto) Baso # (Auto) Abs Immat Gran (auto) Absolute Neuts (auto) Absolute Nucleated RBC Nucleated RBC % (auto) D-Dimer 1873 Hold Blue Top SEE NOTE Anion Gap Estim Creat Clear Calc Estimated GFR Random Glucose Lactic Acid 3.5 H* Calcium Magnesium Total Bilirubin Direct Bilirubin AST ALT Alkaline Phosphatase Troponin I High Sens 38.2 H D C-Reactive Protein B-Natriuretic Peptide 98 Total Protein Albumin Procalcitonin Urine Color Urine Appearance Urine pH Ur Specific [place] Urine Protein Urine Glucose (UA) Urine Ketones Urine Blood Urine Nitrite Ur Leukocyte Esterase Ethyl Alcohol Coronavirus (PCR) Influenza Type A (PCR) Influenza Type B (PCR) RSV RNA Qual (PCR) 05/02/20 05/02/20 05/02/20 12:56 12:56 16:56 MCV MCH MCHC RDW Plt Count MPV Immature Gran % (Auto) Neut % (Auto) Lymph % (Auto) [place] % (Auto) Eos % (Auto) Baso % (Auto) Lymph # (Auto) [place] # (Auto) Eos # (Auto) Baso # (Auto) Abs Immat Gran (auto) Absolute Neuts (auto) Absolute Nucleated RBC Nucleated RBC % (auto) D-Dimer Hold Blue Top Anion Gap Estim Creat Clear Calc Estimated GFR Random Glucose Lactic Acid Calcium Magnesium Total Bilirubin Direct Bilirubin AST ALT Alkaline Phosphatase Troponin I High Sens C-Reactive Protein B-Natriuretic Peptide Total Protein Albumin Procalcitonin < 0.02 Urine Color YELLOW Urine Appearance CLEAR Urine pH 5.5 Ur Specific [place] >= 1.030 H Urine Protein 2+ H Urine Glucose (UA) 500 H Urine Ketones 5 Urine Blood 2+ H Urine Nitrite NEG Ur Leukocyte Esterase NEG Ethyl Alcohol 100 Coronavirus (PCR) Influenza Type A (PCR) Influenza Type B (PCR) RSV RNA Qual (PCR) Imaging Radiologist's Impressions: Impressions Chest X-Ray 05/02/20 12:22 IMPRESSION: Mild interstitial prominence with patchy bilateral airspace opacities, slightly more prominent when compared to the prior examination. Findings can be seen in the setting of an infectious or inflammatory process, including viral pneumonia. Assessment and Plan (1) A-fib: Qualifiers: Atrial fibrillation type: unspecified Qualified Code(s): I48.91 - Unspecified atrial fibrillation Status: Acute (2) Cardiomyopathy: Status: Acute (3) Pneumonia: Qualifiers: Laterality: bilateral Lung location: unspecified part of lung Pneumonia type: due to unspecified organism Qualified Code(s): J18.9 - Pneumonia, unspecified organism Status: Acute (4) CHF (congestive heart failure): Status: Acute (5) HTN (hypertension): Status: Acute (6) CAD (coronary artery disease): Status: Acute 59 year male with alcoholic with AFIB, CAD/cardiomyopathy, HFrEF, AFIB no a/c who presents with n/v diarrhea and palpitations from AFIB with RVR and CXR finding concern for covid yet negative test.. 1. AFIB with RVR--RVR has resolved with IV Metoprolol. Restart Toprol XL 50. No anticoagulation due continuing alcohol use 2. Concern for covid--symptoms of diarrhea, n/v and CXR finding, test negative and positive exposure. -Isolation and repeat test, check IgG. Hold all meds including steroid and antiboitics. Retest tomorrow 3. Cardiomyhopathy/HFrEF--restart Meds (Entresto, Lasix, Metoprolol) 4. Diabetes--Hold Metformin, SSI 5. HTN--Metoprolol above 6. HLD--Lipitor 7. Alcoholism--high risk for withdrawal, Start Phenobartal 8. Hypomagnesemia--replace 9. Lactic acidosis--not related to sepsis possible from Metformin 10. CAD- Lipitor, ASA, Metoprolol DVT: Lovenox
[2020-05-02 17:45] LABS: Bacteria Urine TRACE /LPF; RBC Urine 0-2 /HPF (0); Squamous Epithelial Cell Urine TRACE /LPF; WBC Urine 0-2 /HPF (0-4)
[2020-05-02 17:58] LABS: ~Lactic Acid-LAB USE ONLY 2.5 mmol/L (0.5-2.0)
[2020-05-02 19:22] LABS: Reflex Lactate? 2 Y
[2020-05-02] MEDS: Enoxaparin Sodium 40 MG/0.4 ML SYRINGE SUBCUT (20:11)
[2020-05-02] MEDS: PHENobarbitaL sodium 130 MG/ML VIAL 218 MG IM (20:15)
[2020-05-02 20:52] LABS: Glucose, Whole Blood 179 mg/dL (60-115)
[2020-05-02 21:25] LABS: ~Lactic Acid-LAB USE ONLY 1.7 mmol/L (0.5-2.0)
[2020-05-02] MEDS: Insulin Lispro 100 UNIT/ML 3 ML VIAL SUBCUT (21:48)
--- NOTE | 2020-05-02 21:49 | PC.NURSE ---
pt given snack and diet soda with insulin.
[2020-05-02] MEDS: PHENobarbitaL sodium 130 MG/ML VIAL 163 MG IM (23:20)
[2020-05-03] VITALS (10 sets, daily range): BP systolic 131–153; BP diastolic 82–101; PULSE 98–118; RESP 16–24; TEMP 36.5–37.4; O2SAT 98–100
[2020-05-03] MEDS: PHENobarbitaL sodium 130 MG/ML VIAL 163 MG IM (02:21)
[2020-05-03 06:51] LABS: Amphetamine Screen Urine Not Detected (Not Detect); Barbiturates, Urine Not Detected (Not Detect); Benzodiazepines Screen Urine Not Detected (Not Detect); Cannabinoid Screen Urine Not Detected (Not Detect); Cocaine Screen Urine Not Detected (Not Detect); Opiate Screen Urine Not Detected (Not Detect); Phencyclidine Screen Urine Not Detected (Not Detect)
[2020-05-03] MEDS: Aspirin Enteric Coated 81 MG TABLET.DR PO (08:46)
[2020-05-03] MEDS: Multivitamin TABLET 1 TAB PO (08:46)
[2020-05-03] MEDS: FLUoxetine HCl 20 MG CAPSULE PO (08:46)
[2020-05-03] MEDS: Magnesium Oxide 400 MG TABLET PO ×2 (08:46→20:33)
[2020-05-03] MEDS: Furosemide 40 MG TABLET PO ×2 (08:47→20:33)
[2020-05-03] MEDS: Metoprolol Succinate ER 50 MG TAB.ER.24H PO (08:47)
[2020-05-03] MEDS: Thiamine HCL 100 MG TABLET PO (08:47)
[2020-05-03] MEDS: PHENobarbitaL 15 MG TABLET 45 MG PO ×2 (08:47→20:33)
[2020-05-03] MEDS: Spironolactone 25 MG TABLET PO (08:48)
[2020-05-03 09:32] LABS: Glucose, Whole Blood 224 mg/dL (60-115)
[2020-05-03] MEDS: Insulin Lispro 100 UNIT/ML 3 ML VIAL SUBCUT ×3 (09:33→20:33)
--- NOTE | 2020-05-03 12:21 | MHC.CM.PN ---
Met with pt in [facility]. Pt Inpatient, waiting for bed. Pt refuses to complete a HCP. Lives alone. Is agreeable to ETOH rehab after hospital stay. Has been to a rehab program in [place]? Pt poor historian. Could not remember PCP. CM call to [facility] pharmacy. PCP is Vikki Yap. Referral to Reyes Lopez, behavioral health specialist, to see pt. regarding ETOH rehabilitation options. D/C plan is home without services. Pt normally takes bus for transportation, so he may need transportation home at discharge. Will follow for d/c needs
--- NOTE | 2020-05-03 16:53 | P.PNIM_ITS ---
Subjective Subjective Date of Service: 05/03/20 Cardiovascular Cardiovascular: Reports no additional cardiovascular complaints, Denies dyspnea and Reports dyspnea on exertion Respiratory Respiratory: Denies dyspnea and Reports dyspnea on exertion Gastrointestinal Gastrointestinal: Reports no additional gastrointestinal complaints Physical Exam Vital Signs: Vital Signs: Last Vital Signs Temp 98.4 F 05/03/20 15:50 Pulse 106 H 05/03/20 15:50 Resp 24 H 05/03/20 15:50 BP 153/84 H 05/03/20 15:50 Pulse Ox 98 05/03/20 15:50 Body Mass Index 38.2 Const: General: cooperative Orientation/consciousness: patient oriented x3 HENMT: Head: Yes normal to inspection Neck: Neck: Yes no JVD Chest: Chest palpation & inspection: normal inspection of the chest Cardio: Jugular venous distension: no JVD Rate: tachycardic and Other ( iregular) Heart sounds: S1 normal heart sound present and S2 normal heart sound present GI: Inspection: Yes normal to inspection Palpation (GI): Soft to palpation and nontender Skin: General skin exam: no rashes or lesions noted Neuro: General: patient oriented x3 Motor exam (neuro): Normal motor muscle tone present throughout Objective Data Current Medications Generic Name Dose Route Start Last Admin Trade Name Freq PRN Reason Stop Dose Admin Aspirin 81 mg 05/03/20 09:00 05/03/20 08:46 Aspirin Enteric Coated 81 Mg Tablet.Dr PO 81 mg DAILY [facility] Administration Atorvastatin Calcium 40 mg 05/03/20 21:00 Atorvastatin Calcium 40 Mg Tablet PO BEDTIME [facility] Enoxaparin Sodium 40 mg 05/02/20 19:00 05/02/20 20:11 Enoxaparin Sodium 40 Mg/0.4 Ml Syringe SUBCUT 40 mg Q24H [facility] Administration Fluoxetine HCl 20 mg 05/03/20 09:00 05/03/20 08:46 Fluoxetine Hcl 20 Mg Capsule PO 20 mg DAILY [facility] Administration Furosemide 40 mg 05/03/20 09:00 05/03/20 08:47 Furosemide 40 Mg Tablet PO 40 mg BID [facility] Administration Protocol Insulin Human Lispro 0 unit 05/02/20 21:00 05/03/20 09:33 Insulin Lispro 100 Unit/Ml 3 Ml Vial SUBCUT 4 unit QIDACHS [facility] Administration Protocol Magnesium Oxide 400 mg 05/03/20 09:00 05/03/20 08:46 Magnesium Oxide 400 Mg Tablet PO 400 mg BID [facility] Administration Medication 1 each 05/02/20 18:30 No Benzodiazepines MISCELLANE DAILY [facility] Protocol Metoprolol Succinate 50 mg 05/03/20 09:00 05/03/20 08:47 Metoprolol Succinate Er 50 Mg Tab.Er.24h PO 50 mg DAILY [facility] Administration Protocol Multivitamins/Vitamin C 1 tab 05/03/20 09:00 05/03/20 08:46 Multivitamin Tablet PO 1 tab DAILY [facility] Administration Phenobarbital 45 mg 05/03/20 09:00 05/03/20 08:47 Phenobarbital 15 Mg Tablet PO 05/04/20 21:01 45 mg BID [facility] Administration Phenobarbital 30 mg 05/05/20 09:00 Phenobarbital 30 Mg Tablet PO 05/06/20 21:01 BID [facility] Phenobarbital 30 mg 05/07/20 09:00 Phenobarbital 30 Mg Tablet PO 05/08/20 09:01 DAILY [facility] Spironolactone 25 mg 05/03/20 09:00 05/03/20 08:48 Spironolactone 25 Mg Tablet PO 25 mg DAILY [facility] Administration Protocol Tamsulosin HCl 0.4 mg 05/03/20 17:00 Tamsulosin Hcl 0.4 Mg Capsule PO DAILY [facility] Thiamine HCl 100 mg 05/03/20 09:00 05/03/20 08:47 Thiamine Hcl 100 Mg Tablet PO 100 mg DAILY [facility] Administration Labs CBC & Chem 7: 05/02/20 12:55 05/02/20 12:54 Microbiology Microbiology Results: Microbiology 05/02/20 12:57 Blood - Venous Blood Culture - Preliminary No growth after 24 hours. 05/02/20 12:57 Blood - Venous Blood Culture - Preliminary No growth after 24 hours. Assessment and Plan (1) A-fib: Status: Acute (2) Cardiomyopathy: Status: Acute (3) Pneumonia: Status: Acute (4) CHF (congestive heart failure): Status: Acute (5) HTN (hypertension): Status: Acute (6) CAD (coronary artery disease): Status: Acute Assessment and Plan: 59 year male with alcoholic with AFIB, CAD/cardiomyopathy, HFrEF, AFIB no a/c who presents with n/v diarrhea and palpitations from AFIB with RVR and CXR finding concern for covid yet negative test.. 1. AFIB with RVR--RVR has resolved and now continued on home dose of Metoprolol. 2. Concern for covid--symptoms of diarrhea, n/v and CXR finding, test negative and positive exposure. -Isolation and repeat test today, check IgG. Completly assymptomatic so no steroid or anything else 3. Cardiomyhopathy/HFrEF--He is on Lasix at home 40 bid, Toprolol is listed at 50 daily. In the past he has been on Entresto and Aldactone 4. Diabetes--Hold Metformin, SSI. Restart Metformin 5. HTN--Metoprolol above 6. HLD--Lipitor 7. Alcoholism--high risk for withdrawal, Start Phenobartal 8. Hypomagnesemia--replace 9. Lactic acidosis--not related to sepsis possible from Metformin 10. CAD- Lipitor, ASA, Metoprolol DVT: Lovenox
[2020-05-03] MEDS: Tamsulosin HCL 0.4 MG CAPSULE PO (16:59)
[2020-05-03 17:37] LABS: Glucose, Whole Blood 174 mg/dL (60-115)
[2020-05-03 20:02] LABS: SARS COV2 IgG Negative (Negative)
[2020-05-03] MEDS: Enoxaparin Sodium 40 MG/0.4 ML SYRINGE SUBCUT (20:32)
[2020-05-03 20:33] LABS: Glucose, Whole Blood 207 mg/dL (60-115)
[2020-05-03] MEDS: Atorvastatin Calcium 40 MG TABLET PO (20:33)
[2020-05-04] VITALS (8 sets, daily range): BP systolic 106–140; BP diastolic 70–84; PULSE 86–98; RESP 18–19; TEMP 36.4–37.1; O2SAT 94–99; BMI 38.2
[2020-05-04] MEDS: Thiamine HCL 100 MG TABLET PO (08:52)
[2020-05-04] MEDS: Aspirin Enteric Coated 81 MG TABLET.DR PO (08:52)
[2020-05-04] MEDS: PHENobarbitaL 15 MG TABLET 45 MG PO ×2 (08:52→21:00)
[2020-05-04] MEDS: Magnesium Oxide 400 MG TABLET PO ×2 (08:52→21:00)
[2020-05-04] MEDS: Spironolactone 25 MG TABLET PO (08:52)
[2020-05-04] MEDS: Multivitamin TABLET 1 TAB PO (08:53)
[2020-05-04] MEDS: Metoprolol Succinate ER 50 MG TAB.ER.24H PO (08:53)
[2020-05-04] MEDS: Tamsulosin HCL 0.4 MG CAPSULE PO (08:53)
[2020-05-04] MEDS: Furosemide 40 MG TABLET PO ×2 (08:53→21:00)
[2020-05-04] MEDS: FLUoxetine HCl 20 MG CAPSULE PO (08:53)
[2020-05-04 09:06] LABS: Glucose, Whole Blood 197 mg/dL (60-115)
[2020-05-04 11:43] LABS: Glucose, Whole Blood 240 mg/dL (60-115)
--- NOTE | 2020-05-04 12:57 | MHC.RECOVRN ---
Recovery Support note: 59 year old Syrian speaking male presented to [facility] on 05[place]02[place] via EMS due to nausea, vomiting, and diarrhea x 5 days. It was noted patient had difficulty breathing, however, patient reported that was normal. Pt admitted to [facility] due to Afib, cardiomyopathy, pneumonia, CHF, HTN, CAD, AUD. Pt tested negative for COVID, however, on precautions due to positive exposure and presentation. T/w, along with Recovery [employer] Car Painter/Sandblaster and motion picture cameraman, met with pt to discuss alcohol use. Pt reports drinking ?more than a 12 pack? of beer every day. Pt reports he also used to drink rum but does not anymore. Pt reports first drink at age 12 and has had a couple periods of recovery, most notably a 7 month and 1 year time frame. Pt reports during those times ?I just said no.? Pt states family history of alcohol use and reports sister has recently been hospitalized for alcohol use. Pt reports living alone and has interest in medication for AUD and IOP. Pt reports cravings but denies physical complaints at this time. Patient is interested in starting naltrexone for cravings. Pt denies history of utilizing medication or treatment for AUD. Case was discussed with Yani Marie NP. Recovery Rail Car Painter/Sandblaster discussed IOP with patient and provided information regarding logistics. T/w available as needed.
[2020-05-04 16:55] LABS: Glucose, Whole Blood 252 mg/dL (60-115)
[2020-05-04] MEDS: Insulin Lispro 100 UNIT/ML 3 ML VIAL SUBCUT ×2 (17:26→20:59)
--- NOTE | 2020-05-04 18:59 | P.PNIM_ITS ---
Subjective Subjective Date of Service: 05/05/20 Interval History: afib Review of Systems denies any chest pain or sob or abdpian or fever or chills Physical Exam Vital Signs: Vital Signs: Last Vital Signs Temp 98.7 F 05/04/20 16:00 Pulse 86 05/04/20 16:00 Resp 18 05/04/20 16:00 BP 127/84 05/04/20 16:00 Pulse Ox 94 05/04/20 16:00 Body Mass Index 38.2 Physical exam: Constitution: In acute distress. Seems Somewhat generalized. Cvs: irregular rythem, [id number] , no murmur res: clear to auscultation ,no rhonchii or wheezing abd: no rebound or guarding ,nt, bs present. ext pulses present , no cyanosis neuro: axo3 , nonfocal. Objective Data Current Medications Generic Name Dose Route Start Last Admin Trade Name Freq PRN Reason Stop Dose Admin Aspirin 81 mg 05/03/20 09:00 05/04/20 08:52 Aspirin Enteric Coated 81 Mg Tablet. PO 81 mg DAILY [facility] Administration Atorvastatin Calcium 40 mg 05/03/20 21:00 05/03/20 20:33 Atorvastatin Calcium 40 Mg Tablet PO 40 mg BEDTIME [facility] Administration Enoxaparin Sodium 40 mg 05/02/20 19:00 05/03/20 20:32 Enoxaparin Sodium 40 Mg/0.4 Ml Syringe SUBCUT 40 mg Q24H [facility] Administration Fluoxetine HCl 20 mg 05/03/20 09:00 05/04/20 08:53 Fluoxetine Hcl 20 Mg Capsule PO 20 mg DAILY [facility] Administration Furosemide 40 mg 05/03/20 09:00 05/04/20 08:53 Furosemide 40 Mg Tablet PO 40 mg BID [facility] Administration Protocol Insulin Human Lispro 0 unit 05/02/20 21:00 05/04/20 17:26 Insulin Lispro 100 Unit/Ml 3 Ml Vial SUBCUT 6 unit QIDACHS [facility] Administration Protocol Magnesium Oxide 400 mg 05/03/20 09:00 05/04/20 08:52 Magnesium Oxide 400 Mg Tablet PO 400 mg BID [facility] Administration Medication 1 each 05/02/20 18:30 No Benzodiazepines MISCELLANE DAILY [facility] Protocol Metoprolol Succinate 50 mg 05/03/20 09:00 05/04/20 08:53 Metoprolol Succinate Er 50 Mg Tab.Er.24h PO 50 mg DAILY [facility] Administration Protocol Multivitamins/Vitamin C 1 tab 05/03/20 09:00 05/04/20 08:53 Multivitamin Tablet PO 1 tab DAILY [facility] Administration Phenobarbital 45 mg 05/03/20 09:00 05/04/20 08:52 Phenobarbital 15 Mg Tablet PO 05/04/20 21:01 45 mg BID [facility] Administration Phenobarbital 30 mg 05/05/20 09:00 Phenobarbital 30 Mg Tablet PO 05/06/20 21:01 BID [facility] Phenobarbital 30 mg 05/07/20 09:00 Phenobarbital 30 Mg Tablet PO 05/08/20 09:01 DAILY [facility] Spironolactone 25 mg 05/03/20 09:00 05/04/20 08:52 Spironolactone 25 Mg Tablet PO 25 mg DAILY [facility] Administration Protocol Tamsulosin HCl 0.4 mg 05/03/20 17:00 05/04/20 08:53 Tamsulosin Hcl 0.4 Mg Capsule PO 0.4 mg DAILY [facility] Administration Thiamine HCl 100 mg 05/03/20 09:00 05/04/20 08:52 Thiamine Hcl 100 Mg Tablet PO 100 mg DAILY [facility] Administration Labs CBC & Chem 7: 05/02/20 12:55 05/02/20 12:54 Microbiology Microbiology Results: Microbiology 05/02/20 12:57 Blood - Venous Blood Culture - Preliminary No growth after 48 hours. 05/02/20 12:57 Blood - Venous Blood Culture - Preliminary No growth after 48 hours. Assessment and Plan (1) Cardiomyopathy: Status: Acute (2) A-fib: Status: Acute (3) Pneumonia: Status: Acute (4) CHF (congestive heart failure): Status: Acute (5) HTN (hypertension): Status: Acute (6) CAD (coronary artery disease): Status: Acute Assessment and Plan: 59 year male with alcoholic with AFIB, CAD/cardiomyopathy, HFrEF, AFIB no a/c who presents with n/v diarrhea and palpitations from AFIB with RVR and CXR finding concern for covid yet negative test.. 1. AFIB with RVR--RVR has resolved and now continued on home dose of Metoprolol. Monitor on tele. 2. Concern for covid-- COVID test and IgG negative Diarrhea resolved Patient sats are fine Chest x-ray and CT shows some: Increased bilateral airspace opacities ID eval added 3. Cardiomyhopathy/HFrEF--He is on Lasix at home 40 bid, Toprolol is listed at 50 daily. In the past he has been on Entresto and Aldactone 4. Diabetes--Hold Metformin, SSI. Restart Metformin 5. HTN--Metoprolol above 6. HLD--Lipitor 7. Alcoholism--high risk for withdrawal, Start Phenobartal 8. Hypomagnesemia--replace 9. Lactic acidosis--not related to sepsis possible from Metformin 10. CAD- Lipitor, ASA, Metoprolol DVT: Lovenox
[2020-05-04] MEDS: Enoxaparin Sodium 40 MG/0.4 ML SYRINGE SUBCUT (19:30)
[2020-05-04 20:40] LABS: Glucose, Whole Blood 163 mg/dL (60-115)
[2020-05-04] MEDS: Atorvastatin Calcium 40 MG TABLET PO (21:00)
[2020-05-05] VITALS: BP 119/74; PULSE 87; RESP 18; TEMP 36.3; O2SAT 98
[2020-05-05 03:47] VITALS: BP 134/80; PULSE 54; RESP 18; TEMP 37; O2SAT 99
[2020-05-05 07:57] VITALS: BP 141/85; PULSE 83; RESP 22; O2SAT 100
[2020-05-05 08:11] LABS: Glucose, Whole Blood 178 mg/dL (60-115)
[2020-05-05] MEDS: Insulin Lispro 100 UNIT/ML 3 ML VIAL SUBCUT ×3 (08:15→17:04)
[2020-05-05 08:16] VITALS: BP 141/85; PULSE 83
[2020-05-05] MEDS: Furosemide 40 MG TABLET PO (08:16)
[2020-05-05] MEDS: Spironolactone 25 MG TABLET PO (08:16)
[2020-05-05] MEDS: Thiamine HCL 100 MG TABLET PO (08:16)
[2020-05-05] MEDS: Tamsulosin HCL 0.4 MG CAPSULE PO (08:16)
[2020-05-05] MEDS: Aspirin Enteric Coated 81 MG TABLET.DR PO (08:16)
[2020-05-05] MEDS: Multivitamin TABLET 1 TAB PO (08:16)
[2020-05-05] MEDS: PHENobarbitaL 30 MG TABLET PO (08:16)
[2020-05-05] MEDS: FLUoxetine HCl 20 MG CAPSULE PO (08:16)
[2020-05-05] MEDS: Metoprolol Succinate ER 50 MG TAB.ER.24H PO (08:16)
[2020-05-05] MEDS: Magnesium Oxide 400 MG TABLET PO (08:16)
[2020-05-05 11:44] VITALS: BP 160/96; PULSE 90; O2SAT 99
[2020-05-05 11:48] LABS: Glucose, Whole Blood 225 mg/dL (60-115)
--- NOTE | 2020-05-05 13:10 | MHC.CM.PN ---
Patient remains on phenobarbitol for ETOH. Will need to be seen by ID prior to discharge. Discharge plan is home no services. Patient will need transportation home. CM will continue to follow patient for discharge needs.
--- NOTE | 2020-05-05 15:18 | P.DS_ITS ---
DS: Providers Provider Date of Service: 05/05/20 Date of admission: 05/02/20 17:32 Primary care physician: Unknown Physician Consults: 05/04/20 15:05 Consult to Infectious Diseases Routine Consulting Provider: Nayeli Menjivar Reason for consultation: ? PNEUMONIA Has provider been notified: No DS: Diagnosis Discharge Diagnosis (1) Cardiomyopathy: Status: Acute (2) A-fib: Status: Acute (3) Pneumonia: Status: Acute Problem details: He appears nontoxic He is not on oxygen Possible bronchitis (4) CHF (congestive heart failure): Status: Acute (5) HTN (hypertension): Status: Acute (6) CAD (coronary artery disease): Status: Acute DS: Medications Discharge Medications Home Medications: Home Medications Medication Instructions Recorded Confirmed aspirin 81 mg PO DAILY 01/22/20 05/02/20 atorvastatin 40 mg PO BEDTIME 01/22/20 05/02/20 furosemide 40 mg PO BID 01/22/20 05/02/20 magnesium oxide 400 mg PO BID 01/22/20 05/02/20 metformin 500 mg PO BID 01/22/20 05/02/20 metoprolol succinate 50 mg PO DAILY 01/22/20 05/02/20 multivitamin [One Daily 1 tab PO DAILY 01/22/20 05/02/20 Multivitamin] spironolactone 25 mg PO DAILY 01/22/20 05/02/20 thiamine HCl (vitamin B1) 100 mg PO DAILY 01/22/20 05/02/20 fluoxetine 20 mg PO DAILY 05/02/20 05/02/20 tamsulosin 0.4 mg PO DAILY 05/02/20 05/02/20 DS: Summary Hospital Course Hospital Course: 59-year-old Irish-speaking male with multiple medical problems including CAD s/p stent, cardiomyopathy, AFIB not anticoagulated due to chronic alcohol use and non compliant, diabetes, history of ETOH abuse with ETOH cirrhosis,HFrEF, DM and hx fall who presents to the ED [facility] with reports of nausea, vomiting and diarrhea for the last 5 days and started having palpitations today. He report no sob, fever or chills. He denies covid contact but his sister is down the [place] and diagnosed with COVID and he last had contact with her just yesterday. He was noted to be in AFIB with RVR. CXR show no airway disease. He has no SOB, no cough and fever. He's given Azithro and ceftriaxone for PNA. IV metoprolol given to control heart rate. Magnesium is low and replaced. 59 year male with alcoholic with AFIB, CAD/cardiomyopathy, HFrEF, AFIB no a/c who presents with n/v diarrhea and palpitations from AFIB with RVR and CXR finding concern for covid yet negative test.. 1. AFIB with RVR--RVR has resolved and now continued on home dose of Metoprolol. Patient heart rate seems to be controlled, continue metoprolol. AFIB not anticoagulated due to chronic alcohol use and non compliant. 2. Concern for covid-COVID test and IgG negative Diarrhea resolved Patient sats are fine Chest x-ray and CT shows some: Increased bilateral airspace opacities Discussed with infectious disease-probable mild atypical pneumonia, recommended to start on p.o. doxycycline upon discharge. Repeat chest imaging in 3-4 weeks with PCP to see resolution of pneumonia. 3. Cardiomyhopathy/HFrEF--He is on Lasix at home 40 bid, Toprolol is listed at 50 daily. In the past he has been on Entresto and Aldactone 4. Alcoholism--received phenobarb, seems fine. 5. Hypomagnesemia-repleted and improved, repeated magnesium seems near 1.5 range be have increased the p.o. magnesium dose to 800 mg p.o. b.i.d. Patient is to check his electrolytes and renal function outpatient with PCP and further management as per PCP. Above management discussed with the patient in detail length he understand and in agreement with the above plan, time spent 50 minutes and 50% time spent on counseling. Significant findings: As above. Procedures performed: None. Treatment and response: As above. Complications: None. Time Spent with Patient Time attestation: Total time spent providing and/or coordinating discharge services: Discharge coordination time: Greater than 30 minutes Physical Exam Vital Signs: Vital Signs: Last Vital Signs Temp 98.6 F 05/05/20 03:47 Pulse 90 05/05/20 11:44 Resp 22 H 05/05/20 07:57 BP 160/96 H 05/05/20 11:44 Pulse Ox 99 05/05/20 11:44 Body Mass Index 38.2 Physical exam: Constitutional: Patient is not in acute distress Cvs: rrr, [id number] , no murmur res: clear to auscultation ,no rhonchii or wheezing abd: no rebound or guarding ,nt, bs present. ext pulses present , no cyanosis neuro: axo3 , nonfocal. DS: Data Data Completed and Pending Completed studies during hospitalization [Text1]: Procedures Detoxification Services for Substance Abuse Treatment (01/22/20) Labs on day of discharge: Laboratory Tests 05/02/20 05/02/20 05/02/20 12:54 12:54 12:55 WBC 9.0 RBC 4.12 L Hgb 13.2 L Hct 38.7 L MCV 93.9 MCH 32.0 MCHC 34.1 RDW 13.8 Plt Count 102 L D MPV 10.4 Immature Gran % (Auto) 0.3 Neut % (Auto) 82.9 H Lymph % (Auto) 12.0 L [place] % (Auto) 4.4 Eos % (Auto) 0.1 Baso % (Auto) 0.3 Lymph # (Auto) 1.1 L [place] # (Auto) 0.4 Eos # (Auto) 0.0 Baso # (Auto) 0.0 Abs Immat Gran (auto) 0.03 Absolute Neuts (auto) 7.5 Absolute Nucleated RBC 0.000 Nucleated RBC % (auto) 0.0 D-Dimer Hold Blue Top Sodium 138 Potassium 4.0 Chloride 104 Carbon Dioxide 20 L Anion Gap 18 BUN 5 L Creatinine 0.67 Estim Creat Clear Calc 147.2 Estimated GFR > 60 POC Glucose Random Glucose 208 H Lactic Acid Lactic Acid Fup @ 2Hr Lactic Acid Fup @ 4Hr Calcium 8.3 L Magnesium 1.4 L* Total Bilirubin 1.0 Direct Bilirubin 0.6 H AST 48 H D ALT 38 Alkaline Phosphatase 104 Troponin I High Sens C-Reactive Protein 1.02 H B-Natriuretic Peptide Total Protein 7.5 Albumin 3.8 Procalcitonin Urine Color Urine Appearance Urine pH Ur Specific [place] Urine Protein Urine Glucose (UA) Urine Ketones Urine Blood Urine Nitrite Ur Leukocyte Esterase Urine RBC Urine WBC Ur Squamous Epith Cells Urine Bacteria Urine Opiates Screen Ur Barbiturates Screen Ur Phencyclidine Scrn Ur Amphetamines Screen U Benzodiazepines Scrn Urine Cocaine Screen U Marijuana (THC) Screen Ethyl Alcohol Coronavirus (PCR) NEGATIVE Influenza Type A (PCR) NEGATIVE Influenza Type B (PCR) NEGATIVE RSV RNA Qual (PCR) NEGATIVE SARS-CoV-2 IgG Ab 05/02/20 05/02/20 05/02/20 12:56 12:56 12:56 WBC RBC Hgb Hct MCV MCH MCHC RDW Plt Count MPV Immature Gran % (Auto) Neut % (Auto) Lymph % (Auto) [place] % (Auto) Eos % (Auto) Baso % (Auto) Lymph # (Auto) [place] # (Auto) Eos # (Auto) Baso # (Auto) Abs Immat Gran (auto) Absolute Neuts (auto) Absolute Nucleated RBC Nucleated RBC % (auto) D-Dimer 1873 Hold Blue Top SEE NOTE Sodium Potassium Chloride Carbon Dioxide Anion Gap BUN Creatinine Estim Creat Clear Calc Estimated GFR POC Glucose Random Glucose Lactic Acid 3.5 H* Lactic Acid Fup @ 2Hr Lactic Acid Fup @ 4Hr Calcium Magnesium Total Bilirubin Direct Bilirubin AST ALT Alkaline Phosphatase Troponin I High Sens 38.2 H D C-Reactive Protein B-Natriuretic Peptide 98 Total Protein Albumin Procalcitonin Urine Color Urine Appearance Urine pH Ur Specific [place] Urine Protein Urine Glucose (UA) Urine Ketones Urine Blood Urine Nitrite Ur Leukocyte Esterase Urine RBC Urine WBC Ur Squamous Epith Cells Urine Bacteria Urine Opiates Screen Ur Barbiturates Screen Ur Phencyclidine Scrn Ur Amphetamines Screen U Benzodiazepines Scrn Urine Cocaine Screen U Marijuana (THC) Screen Ethyl Alcohol Coronavirus (PCR) Influenza Type A (PCR) Influenza Type B (PCR) RSV RNA Qual (PCR) SARS-CoV-2 IgG Ab 05/02/20 05/02/20 05/02/20 12:56 12:56 16:56 WBC RBC Hgb Hct MCV MCH MCHC RDW Plt Count MPV Immature Gran % (Auto) Neut % (Auto) Lymph % (Auto) [place] % (Auto) Eos % (Auto) Baso % (Auto) Lymph # (Auto) [place] # (Auto) Eos # (Auto) Baso # (Auto) Abs Immat Gran (auto) Absolute Neuts (auto) Absolute Nucleated RBC Nucleated RBC % (auto) D-Dimer Hold Blue Top Sodium Potassium Chloride Carbon Dioxide Anion Gap BUN Creatinine Estim Creat Clear Calc Estimated GFR POC Glucose Random Glucose Lactic Acid Lactic Acid Fup @ 2Hr Lactic Acid Fup @ 4Hr Calcium Magnesium Total Bilirubin Direct Bilirubin AST ALT Alkaline Phosphatase Troponin I High Sens C-Reactive Protein B-Natriuretic Peptide Total Protein Albumin Procalcitonin < 0.02 Urine Color YELLOW Urine Appearance CLEAR Urine pH 5.5 Ur Specific [place] >= 1.030 H Urine Protein 2+ H Urine Glucose (UA) 500 H Urine Ketones 5 Urine Blood 2+ H Urine Nitrite NEG Ur Leukocyte Esterase NEG Urine RBC 0-2 Urine WBC 0-2 Ur Squamous Epith Cells TRACE Urine Bacteria TRACE Urine Opiates Screen Ur Barbiturates Screen Ur Phencyclidine Scrn Ur Amphetamines Screen U Benzodiazepines Scrn Urine Cocaine Screen U Marijuana (THC) Screen Ethyl Alcohol 100 Coronavirus (PCR) Influenza Type A (PCR) Influenza Type B (PCR) RSV RNA Qual (PCR) SARS-CoV-2 IgG Ab 05/02/20 05/02/20 05/02/20 16:56 17:14 20:47 WBC RBC Hgb Hct MCV MCH MCHC RDW Plt Count MPV Immature Gran % (Auto) Neut % (Auto) Lymph % (Auto) [place] % (Auto) Eos % (Auto) Baso % (Auto) Lymph # (Auto) [place] # (Auto) Eos # (Auto) Baso # (Auto) Abs Immat Gran (auto) Absolute Neuts (auto) Absolute Nucleated RBC Nucleated RBC % (auto) D-Dimer Hold Blue Top Sodium Potassium Chloride Carbon Dioxide Anion Gap BUN Creatinine Estim Creat Clear Calc Estimated GFR POC Glucose 179 H Random Glucose Lactic Acid Lactic Acid Fup @ 2Hr 2.5 H* Lactic Acid Fup @ 4Hr Calcium Magnesium Total Bilirubin Direct Bilirubin AST ALT Alkaline Phosphatase Troponin I High Sens C-Reactive Protein B-Natriuretic Peptide Total Protein Albumin Procalcitonin Urine Color Urine Appearance Urine pH Ur Specific [place] Urine Protein Urine Glucose (UA) Urine Ketones Urine Blood Urine Nitrite Ur Leukocyte Esterase Urine RBC Urine WBC Ur Squamous Epith Cells Urine Bacteria Urine Opiates Screen Not Detected Ur Barbiturates Screen Not Detected Ur Phencyclidine Scrn Not Detected Ur Amphetamines Screen Not Detected U Benzodiazepines Scrn Not Detected Urine Cocaine Screen Not Detected U Marijuana (THC) Screen Not Detected Ethyl Alcohol Coronavirus (PCR) Influenza Type A (PCR) Influenza Type B (PCR) RSV RNA Qual (PCR) SARS-CoV-2 IgG Ab 05/02/20 05/03/20 05/03/20 20:56 09:25 16:40 WBC RBC Hgb Hct MCV MCH MCHC RDW Plt Count MPV Immature Gran % (Auto) Neut % (Auto) Lymph % (Auto) [place] % (Auto) Eos % (Auto) Baso % (Auto) Lymph # (Auto) [place] # (Auto) Eos # (Auto) Baso # (Auto) Abs Immat Gran (auto) Absolute Neuts (auto) Absolute Nucleated RBC Nucleated RBC % (auto) D-Dimer Hold Blue Top Sodium Potassium Chloride Carbon Dioxide Anion Gap BUN Creatinine Estim Creat Clear Calc Estimated GFR POC Glucose 224 H 174 H Random Glucose Lactic Acid Lactic Acid Fup @ 2Hr Lactic Acid Fup @ 4Hr 1.7 Calcium Magnesium Total Bilirubin Direct Bilirubin AST ALT Alkaline Phosphatase Troponin I High Sens C-Reactive Protein B-Natriuretic Peptide Total Protein Albumin Procalcitonin Urine Color Urine Appearance Urine pH Ur Specific [place] Urine Protein Urine Glucose (UA) Urine Ketones Urine Blood Urine Nitrite Ur Leukocyte Esterase Urine RBC Urine WBC Ur Squamous Epith Cells Urine Bacteria Urine Opiates Screen Ur Barbiturates Screen Ur Phencyclidine Scrn Ur Amphetamines Screen U Benzodiazepines Scrn Urine Cocaine Screen U Marijuana (THC) Screen Ethyl Alcohol Coronavirus (PCR) Influenza Type A (PCR) Influenza Type B (PCR) RSV RNA Qual (PCR) SARS-CoV-2 IgG Ab 05/03/20 05/03/20 05/04/20 18:44 20:30 09:01 WBC RBC Hgb Hct MCV MCH MCHC RDW Plt Count MPV Immature Gran % (Auto) Neut % (Auto) Lymph % (Auto) [place] % (Auto) Eos % (Auto) Baso % (Auto) Lymph # (Auto) [place] # (Auto) Eos # (Auto) Baso # (Auto) Abs Immat Gran (auto) Absolute Neuts (auto) Absolute Nucleated RBC Nucleated RBC % (auto) D-Dimer Hold Blue Top Sodium Potassium Chloride Carbon Dioxide Anion Gap BUN Creatinine Estim Creat Clear Calc Estimated GFR POC Glucose 207 H 197 H Random Glucose Lactic Acid Lactic Acid Fup @ 2Hr Lactic Acid Fup @ 4Hr Calcium Magnesium Total Bilirubin Direct Bilirubin AST ALT Alkaline Phosphatase Troponin I High Sens C-Reactive Protein B-Natriuretic Peptide Total Protein Albumin Procalcitonin Urine Color Urine Appearance Urine pH Ur Specific [place] Urine Protein Urine Glucose (UA) Urine Ketones Urine Blood Urine Nitrite Ur Leukocyte Esterase Urine RBC Urine WBC Ur Squamous Epith Cells Urine Bacteria Urine Opiates Screen Ur Barbiturates Screen Ur Phencyclidine Scrn Ur Amphetamines Screen U Benzodiazepines Scrn Urine Cocaine Screen U Marijuana (THC) Screen Ethyl Alcohol Coronavirus (PCR) Influenza Type A (PCR) Influenza Type B (PCR) RSV RNA Qual (PCR) SARS-CoV-2 IgG Ab Negative 05/04/20 05/04/20 05/04/20 11:38 16:49 20:34 WBC RBC Hgb Hct MCV MCH MCHC RDW Plt Count MPV Immature Gran % (Auto) Neut % (Auto) Lymph % (Auto) [place] % (Auto) Eos % (Auto) Baso % (Auto) Lymph # (Auto) [place] # (Auto) Eos # (Auto) Baso # (Auto) Abs Immat Gran (auto) Absolute Neuts (auto) Absolute Nucleated RBC Nucleated RBC % (auto) D-Dimer Hold Blue Top Sodium Potassium Chloride Carbon Dioxide Anion Gap BUN Creatinine Estim Creat Clear Calc Estimated GFR POC Glucose 240 H 252 H 163 H Random Glucose Lactic Acid Lactic Acid Fup @ 2Hr Lactic Acid Fup @ 4Hr Calcium Magnesium Total Bilirubin Direct Bilirubin AST ALT Alkaline Phosphatase Troponin I High Sens C-Reactive Protein B-Natriuretic Peptide Total Protein Albumin Procalcitonin Urine Color Urine Appearance Urine pH Ur Specific [place] Urine Protein Urine Glucose (UA) Urine Ketones Urine Blood Urine Nitrite Ur Leukocyte Esterase Urine RBC Urine WBC Ur Squamous Epith Cells Urine Bacteria Urine Opiates Screen Ur Barbiturates Screen Ur Phencyclidine Scrn Ur Amphetamines Screen U Benzodiazepines Scrn Urine Cocaine Screen U Marijuana (THC) Screen Ethyl Alcohol Coronavirus (PCR) Influenza Type A (PCR) Influenza Type B (PCR) RSV RNA Qual (PCR) SARS-CoV-2 IgG Ab 05/05/20 05/05/20 07:58 11:38 WBC RBC Hgb Hct MCV MCH MCHC RDW Plt Count MPV Immature Gran % (Auto) Neut % (Auto) Lymph % (Auto) [place] % (Auto) Eos % (Auto) Baso % (Auto) Lymph # (Auto) [place] # (Auto) Eos # (Auto) Baso # (Auto) Abs Immat Gran (auto) Absolute Neuts (auto) Absolute Nucleated RBC Nucleated RBC % (auto) D-Dimer Hold Blue Top Sodium Potassium Chloride Carbon Dioxide Anion Gap BUN Creatinine Estim Creat Clear Calc Estimated GFR POC Glucose 178 H 225 H Random Glucose Lactic Acid Lactic Acid Fup @ 2Hr Lactic Acid Fup @ 4Hr Calcium Magnesium Total Bilirubin Direct Bilirubin AST ALT Alkaline Phosphatase Troponin I High Sens C-Reactive Protein B-Natriuretic Peptide Total Protein Albumin Procalcitonin Urine Color Urine Appearance Urine pH Ur Specific [place] Urine Protein Urine Glucose (UA) Urine Ketones Urine Blood Urine Nitrite Ur Leukocyte Esterase Urine RBC Urine WBC Ur Squamous Epith Cells Urine Bacteria Urine Opiates Screen Ur Barbiturates Screen Ur Phencyclidine Scrn Ur Amphetamines Screen U Benzodiazepines Scrn Urine Cocaine Screen U Marijuana (THC) Screen Ethyl Alcohol Coronavirus (PCR) Influenza Type A (PCR) Influenza Type B (PCR) RSV RNA Qual (PCR) SARS-CoV-2 IgG Ab Preliminary micro results at discharge 05/02/20 12:57 Blood Culture - Preliminary Blood - Venous No growth after 48 hours. 05/02/20 12:57 Blood Culture - Preliminary Blood - Venous No growth after 48 hours. Discharge Plan Discharge Patient Disposition: Home, Self-Care Referrals: Physician,Unknown [Primary Care Provider] - Discharge Medications: New doxycycline hyclate 100 mg capsule 100 mg PO DAILY Qty: 14 RF: 0 Continued tamsulosin 0.4 mg Capsule 0.4 mg PO DAILY RF: 0 fluoxetine 20 mg Capsule 20 mg PO DAILY RF: 0 multivitamin [One Daily Multivitamin] Tablet 1 tab PO DAILY RF: 0 furosemide 40 mg tablet 40 mg PO BID RF: 0 atorvastatin 40 mg tablet 40 mg PO BEDTIME RF: 0 metformin 500 mg tablet 500 mg PO BID RF: 0 metoprolol succinate 50 mg tablet extended release 24 hr 50 mg PO DAILY RF: 0 thiamine HCl (vitamin B1) 100 mg tablet 100 mg PO DAILY RF: 0 aspirin 81 mg tablet,delayed release (DR/EC) 81 mg PO DAILY RF: 0 spironolactone 25 mg tablet 25 mg PO DAILY RF: 0 Changed magnesium oxide 400 mg (241.3 mg magnesium) tablet 800 mg PO BID Qty: 20 RF: 0 Discharge Orders: Discharge Order (Routine); Ordered 05/05/20 Ordered By: Dominick Llanos Diet: advance to usual diet and diabetic diet Activity on Discharge: As tolerated Other Ambulatory Orders: Basic Metabolic Panel Fasting (Routine) Timeframe: 1 Week Facility: [facility] - Location: Laboratory Ordered By: Dominick Llanos Magnesium (Routine) Timeframe: 1 Week Facility: [facility] - Location: Laboratory Ordered By: Dominick Llanos Visit Report Forms: Patient Portal Discharge page Care Plan Goals: Patient came to the hospital with AFib with RVR which is seems to be improved going home with his her home medications. Patient had episode of diarrhea initially which resolved spontaneously does not complain of any abdominal pain or new diarrhea episode. COVID also negative In addition patient chest x-ray and CT was reviewed with Infectious Disease seems like probably has atypical pneumonia: Added doxycycline, please complete the course. Repeat chest imaging in 3-4 weeks with PCP to see resolution of pneumonia. Further management outpatient as per PCP. Health Concerns: As above. Plan of Treatment: As above.
--- NOTE | 2020-05-05 15:25 | MHC.CM.PN ---
Patient will be discharged home today via taxi voucher. Patient and nurse are aware.
[2020-05-05 16:25] LABS: Magnesium 1.5 mg/dL (1.6-2.6)
--- NOTE | 2020-05-05 16:45 | W.PM.IDCN ---
History of Present Illness Data of Consult Service Date: 05/05/20 Requesting physician: Dominick Llanos Primary Care Provider: Unknown Physician HPI Reason for consult: infiltrates She presents with shortnes of breath She has no oxygen requirements Symptoms for 3 days Review of Systems Review of Systems: Yes all other systems are reviewed and are negative [facility] Past Medical History Medical History A-fib CAD (coronary artery disease) Cardiomyopathy CHF (congestive heart failure) Cirrhosis Depression Diabetes ETOH abuse HTN (hypertension) Social History Social History Household Members: None Housing: Apartment Alcohol intake: current Alcohol intake frequency: 3 or more drinks per day Alcohol type: beer Smoking Status: Unknown if ever smoked Use of substances other than those prescribed or required for medical reasons: Unknown Advance Directives: No Advance Directives Information Provided: No service: No Current occupational status: unemployed Meds Allergies Allergy/AdvReac Type Severity Reaction Status Date / Time Penicillins [PCN] Allergy Unknown UNKNOWN Verified 05/27/20 16:32 Home Medications Medication Instructions Recorded Confirmed Type aspirin 81 mg PO DAILY 01/22/20 05/08/20 History atorvastatin 40 mg PO BEDTIME 01/22/20 05/08/20 History furosemide 40 mg PO BID 01/22/20 05/08/20 History metformin 500 mg PO BID 01/22/20 05/08/20 History metoprolol succinate 50 mg PO DAILY 01/22/20 05/08/20 History multivitamin [One Daily 1 tab PO DAILY 01/22/20 05/08/20 History Multivitamin] spironolactone 25 mg PO DAILY 01/22/20 05/08/20 History thiamine HCl (vitamin B1) 100 mg PO DAILY 01/22/20 05/08/20 History fluoxetine 20 mg PO DAILY 05/02/20 05/08/20 History tamsulosin 0.4 mg PO DAILY 05/02/20 05/08/20 History Physical Exam Vital Signs: Vital Signs: Last Vital Signs Temp 98.6 F 05/05/20 03:47 Pulse 90 05/05/20 11:44 Resp 22 H 05/05/20 07:57 BP 160/96 H 05/05/20 11:44 Pulse Ox 99 05/05/20 11:44 Body Mass Index 38.2 Const: General: cooperative Resp: Effort & Inspection: normal respiratory effort Cardio: Rate: regular rate Rhythm: regular rhythm GI: Percussion: Yes normal to percussion Extrem: General: Yes normal to inspection Assessment and Plan (1) Pneumonia: Qualifiers: Laterality: bilateral Lung location: unspecified part of lung Pneumonia type: due to unspecified organism Qualified Code(s): J18.9 - Pneumonia, unspecified organism Problem details: He appears nontoxic He is not on oxygen Possible bronchitis Status: Acute Po Doxycycline for 10 days Results Labs CBC & Chem 7: 05/02/20 12:55 05/02/20 12:54 Microbiology Microbiology Results: Microbiology 05/02/20 12:57 Blood - Venous Blood Culture - Preliminary No growth after 48 hours. 05/02/20 12:57 Blood - Venous Blood Culture - Preliminary No growth after 48 hours.
[2020-05-05 16:46] LABS: Glucose, Whole Blood 220 mg/dL (60-115)
[2020-05-05] MEDS: Magnesium Oxide 400 MG TABLET 800 MG PO (17:04)
== END 2020-05-05 18:51 | disposition home or self-care (01) | DRG 194 ==
LOC: HO.ED 14:33 → HO.EDOVER 17:55 → HO.IMC 05-03 16:23
PROVIDERS: Physician Assistant; Admitting Provider Internal Medicine; Emergency Provider Emergency Medicine Emergency Medical Services; Visit Provider Internal Medicine
DX: J18.9 Pneumonia, unspecified organism (principal); E87.2 Acidosis; I50.22 Chronic systolic (congestive) heart failure; I42.9 Cardiomyopathy, unspecified; I25.10 Atherosclerotic heart disease of native coronary artery without angina pectoris; E11.9 Type 2 diabetes mellitus without complications; E78.5 Hyperlipidemia, unspecified; E83.42 Hypomagnesemia; I48.91 Unspecified atrial fibrillation; F10.20 Alcohol dependence, uncomplicated; Z20.828 Contact with and (suspected) exposure to other viral communicable diseases; Z91.14 Patient's other noncompliance with medication regimen; Z88.0 Allergy status to penicillin; Z79.82 Long term (current) use of aspirin; Z79.84 Long term (current) use of oral hypoglycemic drugs; Z79.899 Other long term (current) drug therapy
CPT/HCPCS: 0241U; 36415; 71045; 71275; 80048; 80076; 80307; 80320; 81001; 82947; 83605; 83735; 83880; 84145; 84484; 85025; 85379; 86140; 86769; 87040; 93005; 96361; 96365; 96366; 96367; 96375; 96376; 99285; 99291; J0456; J0696; J1650; J2405; J2560; J3475; Q9967

== ENCOUNTER 2020-05-08 13:36 | Emergency (ER) | payer MEDICARE, MEDICAID, SELFPAY ==
[2020-05-08 13:49] VITALS: BP 134/80; BP 170/90; PULSE 108; PULSE 89; RESP 21; TEMP 36.5; O2SAT 92; O2SAT 95; BMI 41.2
--- NOTE | 2020-05-08 13:51 | ECG_ITS ---
Test Reason : ETOH, SUBSTANCE ABUS Blood Pressure : / mmHG Vent. Rate : 092 BPM Atrial Rate : 088 BPM P-R Int : 000 ms QRS Dur : 100 ms QT Int : 378 ms P-R-T Axes : 000 -76 092 degrees QTc Int : 467 ms Atrial fibrillation Left axis deviation Low voltage QRS Inferior infarct , age undetermined Cannot rule out Anterior infarct (cited on or before 02-JUL-2016) Abnormal ECG When compared with ECG of 02-MAY-2020 12:38, No significant changes seen Referred By: Evette Guerrero Electronically Signed By:ADRIANA CORRAL
--- NOTE | 2020-05-08 13:51 | CT_ITS ---
EXAMINATION: CT HEAD WITHOUT CONTRAST CLINICAL INFORMATION: AMS was lethargic. COMPARISON: None TECHNIQUE: Contiguous axial imaging was performed from the skull base to vertex without intravenous administration of contrast. This CT examination was performed using dose optimization techniques as appropriate, variously including the following: *Automated exposure control *Adjustment of mA and/or kV according to patient size (this includes techniques or standardized protocols for targeted exams where dose is matched to indication/reason for exam; i.e. extremities or head) *Use of iterative reconstruction technique DLP: 858 mGy-cm FINDINGS: There is no evidence of acute intracranial hemorrhage or territorial infarction. No abnormal mass effect or midline shift is seen. Garcia to white matter differentiation is well preserved. No extra-axial fluid collections are identified. The ventricles are normal in size. It 58 The osseous structures and soft tissues are normal. The mastoid air cells and visualized portions of the paranasal sinuses are well aerated. CT/CT head/brain wo con IMPRESSION: No acute intracranial process seen.
--- NOTE | 2020-05-08 13:51 | XR_ITS ---
EXAMINATION: XR CHEST CLINICAL INFORMATION: Weakness. COMPARISON: Chest 05/02/2020 TECHNIQUE: Frontal view of the chest was obtained. FINDINGS: The lungs are hypoexpanded with increase interstitial markings in both lungs with mild blunting of right CP angle. The heart size and vascularity is normal. No gross bony abnormality seen. XR/XR chest 1V IMPRESSION: Cardiomegaly with bilateral increase interstitial markings likely pneumonitis. On most similar to previous study Suspect small right pleural effusion.
[2020-05-08 13:53] LABS: Glucose, Whole Blood 313 mg/dL (60-115)
--- NOTE | 2020-05-08 13:55 | ED_ITS ---
HPI - Weakness General Chief complaint: ETOH/Substance Use Stated complaint: ETOH,POC 389 Time Seen by Provider: 05/08/20 13:40 Source: patient and EMS Mode of arrival: EMS Limitations: no limitations History of Present Illness HPI Narrative: 59-year-old male with a past medical history of CAD status post stent, cardiomyopathy, AFib not anticoagulated due to chronic alcohol use and noncompliance, diabetes, alcohol abuse with alcoholic liver cirrhosis, diabetes, cardiomyopathy/HFrEF here for generalized weakness, alcohol use. Of note the patient was admitted to this facility 05/02 through 05/05 for AFib with RVR, atypical pneumonia currently on doxycycline (day 4 of 7), hypo magnesemia, alcohol withdrawal. He tells me he has been living with his friend since discharge. He tells me he has been drinking alcohol since he was discharged from this facility and has had many beers today. He denies substance use. He tells me he has not been eating food or drinking water. Feels generally weak. No other complaints. MD Complaint: generalized weakness Onset (ago): day(s) Duration: constant Location: generalized Migration: none Relieving factors: none Exacerbating factors: none Associated symptoms: denies other symptoms Related Data Home Medications Medication Instructions Recorded Confirmed aspirin 81 mg PO DAILY 01/22/20 05/02/20 atorvastatin 40 mg PO BEDTIME 01/22/20 05/02/20 furosemide 40 mg PO BID 01/22/20 05/02/20 metformin 500 mg PO BID 01/22/20 05/02/20 metoprolol succinate 50 mg PO DAILY 01/22/20 05/02/20 multivitamin [One Daily 1 tab PO DAILY 01/22/20 05/02/20 Multivitamin] spironolactone 25 mg PO DAILY 01/22/20 05/02/20 thiamine HCl (vitamin B1) 100 mg PO DAILY 01/22/20 05/02/20 fluoxetine 20 mg PO DAILY 05/02/20 05/02/20 tamsulosin 0.4 mg PO DAILY 05/02/20 05/02/20 Previous Rx's Medication Instructions Recorded doxycycline hyclate 100 mg PO DAILY #14 cap 05/05/20 magnesium oxide 800 mg PO BID #20 tab 05/05/20 Allergies Allergy/AdvReac Type Severity Reaction Status Date / Time Penicillins [PCN] Allergy Unknown UNKNOWN Verified 05/02/20 11:57 Review of Systems Review of Systems: Yes all other systems are reviewed and are negative Constitutional: Constitutional: Reports no additional constitutional complaints, Denies body ache(s), Denies chills, Denies fever(s), Denies headache(s) and Reports weakness Eyes: Eyes: Reports no additional eye complaints and Denies change in vision ENT: Reports system reviewed and no additional complaints, except as documented, Denies dizziness, Denies headache(s), Denies nasal congestion, Denies nasal discharge and Denies neck pain Cardiovascular: Cardiovascular: Reports no additional cardiovascular complaints, Denies chest pain, Denies leg edema and Denies dyspnea Respiratory: Respiratory: Reports no additional respiratory complaints, Denies cough and Denies dyspnea Gastrointestinal: Gastrointestinal: Reports no additional gastrointestinal complaints, Denies abdominal pain, Denies diarrhea, Denies nausea and Denies vomiting Genitourinary: Genitourinary: Denies urinary incontinence Musculoskeletal: Musculoskeletal: Reports no additional musculoskeletal complaints, Denies back pain, Denies arthralgias, Denies joint swelling, Denies neck pain, Denies numbness and Denies tingling Integumentary/Breasts: Skin/Breast: Reports system reviewed and no additional complaints, except as docu and Denies rash Neurologic: Reports system reviewed and no additional complaints, except as documented, Denies Abnormal speech present, Denies dizziness, Denies headache(s), Denies numbness, Denies tingling and Reports weakness PMFSH Past Medical History Attestation statement: The following information was validated with the patient. Source: old records reviewed and nursing notes reviewed Medical History A-fib CAD (coronary artery disease) Cardiomyopathy CHF (congestive heart failure) Cirrhosis Depression Diabetes ETOH abuse HTN (hypertension) Social History Social History Household Members: None Housing: Apartment Alcohol intake: current Alcohol intake frequency: 3 or more drinks per day Alcohol type: beer Smoking Status: Never smoker Advance Directives: No Advance Directives Information Provided: No service: No Current occupational status: unemployed Physical Exam Vital Signs: Vital Signs: Last Vital Signs Temp 97.7 F 05/08/20 13:49 Pulse 89 05/08/20 13:49 Resp 21 H 01/18/21 13:49 BP 134/80 05/08/20 13:49 Pulse Ox 92 05/08/20 13:49 Body Mass Index 41.2 Const: Other: Disheveled, lethargic but arouses to verbal General: cooperative, intoxicated appearing and poor hygiene Orientation/consciousness: patient oriented x3 Limitations: no limitations HENMT: Head: Yes normal to inspection Ears: hearing grossly normal bilaterally General nose exam: Normal external nose present Face and sinus: Yes normal facial exam Mouth: Normal oral and palatal mucosa present Throat: Yes posterior oropharynx normal Eyes: General: appearance normal, both eyes and all related structures Pupils: Equal, round and reactive pupils present Neck: Neck: Yes normal visual inspection Chest: Chest palpation & inspection: normal inspection of the chest Resp: Effort & Inspection: normal respiratory effort Auscultation: clear to auscultation bilaterally Cardio: Rate: regular rate Rhythm: regular rhythm Peripheral pulses: Peripheral pulses 2+ throughout GI: Inspection: Yes normal to inspection Palpation (GI): Soft to palpation and nontender Auscultation: normal bowel sounds Back/Spine/Pelvis: Thoracic/Lumbar Spine: thoracic and lumbar spine normal to inspection Skin: General skin exam: no rashes or lesions noted Neuro: Other: Lethargic but arouses to verbal Generalized weakness throughout, moves all extremities equally General: patient oriented x3, no focal motor deficits, normal sensation to monofilament and Unable to assess gait Cranial nerves: Yes Equal, round and reactive pupils present Cognition (Neuro): normal cognition Speech: No Abnormal speech present Gait exam (Neuro): Unable to assess gait Extrem: General: Yes normal to inspection and Yes pedal edema (Bilateral 1+) Course Course Course Narrative: 59-year-old male here with generalized weakness, alcohol abuse in the setting of recent discharge from this facility 3 days ago. History of present illness and physical exam and review of systems is limited as the patient is lethargic. He does arouse to verbal and has no overt neurological deficits. Will check labs, chest x-ray, EKG, CT head. Pt admits to with no plan to nurse. Once medically cleared will need n evaluation. 1615-CT head negative. Chest x-ray shows cardiomegaly with bilateral increase interstitial markings likely pneumonitis. On most similar to previous study. Suspect small right pleural effusion. Appears unchanged from previous. Patient was discharged May 05 with a diagnosis of atypical pneumonia and is currently on doxycycline. Thrombocytopenia which is chronic and secondary to alcohol abuse. Elevated glucose secondary to underlying diabetes. Magnesium 1.4. Replacement ordered. BNP 107 which is unchanged from previous. Alcohol level 292. 1800-Pending repeat MG and troponin. Pt will then need [facility] evaluation. May also need CM/PT if unsafe for discharge home. Continued doxycycline in medications. Sign out to Derek JAVIER pending above. MDM - Weakness Medical Records Attestation: I reviewed the patient's medical records. Lab Data Attestation: I reviewed the patient's lab results. Result diagrams: 05/08/20 14:27 05/08/20 14:27 Labs: Lab Results 05/08/20 05/08/20 05/08/20 Range/Units 13:49 14:27 14:27 WBC 5.7 (4.8-10.8) X10*3/uL RBC 3.81 L (4.60-5.80) X10*6/uL Hgb 12.2 L (14.0-18.0) g/dl Hct 37.1 L (42-52) % MCV 97.4 (80-98) fL MCH 32.0 (27.0-33.0) pg MCHC 32.9 (31.0-36.0) g/dl RDW 15.0 (11.0-16.0) % Plt Count 82 L (160-400) X10*3/uL MPV 10.6 (9.4-12.4) fL Immature Gran % (Auto) 0.7 H (0.0-0.4) % Neut % (Auto) 61.0 (45-73) % Lymph % (Auto) 24.4 (20-40) % [place] % (Auto) 11.3 H (2-11) % Eos % (Auto) 2.1 (0-4) % Baso % (Auto) 0.5 (0-2) % Lymph # (Auto) 1.4 (1.2-4.9) X10*3/uL [place] # (Auto) 0.6 (0.1-1.2) X10*3/uL Eos # (Auto) 0.1 (0.0-0.4) X10*3/uL Baso # (Auto) 0.0 (0.0-0.2) X10*3/uL Abs Immat Gran (auto) 0.04 H (0.00-0.03) X10*3/uL Absolute Neuts (auto) 3.5 (2.0-8.3) X10*3/uL Absolute Nucleated RBC 0.000 (0.0-0.012) X10*3/uL Nucleated RBC % (auto) 0.0 (0.0-0.2) /100WBC PT 13.5 H (10.8-13.0) SEC INR 1.1 (0.9-1.1) Sodium (135-145) mmol/L Potassium (3.3-5.1) mmol/l Chloride (96-108) mmol/L Carbon Dioxide (22-29) mmol/L Anion Gap (12-20) BUN (9-16) mg/dL Creatinine (0.5-1.4) mg/dL Estim Creat Clear Calc Estimated GFR POC Glucose 313 H (60-115) mg/dL Random Glucose (60-115) mg/dL Lactic Acid (0.5-2.0) mmol/L Calcium (8.4-10.2) mg/dL Magnesium (1.6-2.6) mg/dL Total Bilirubin (0.0-1.0) mg/dL Direct Bilirubin (0.0-0.5) mg/dL AST (5-37) U/L ALT (0-40) U/L Alkaline Phosphatase (39-117) U/L Troponin I High Sens (<3.5-35.0) ng/L B-Natriuretic Peptide (<100) pg/mL Total Protein (6.5-8.0) g/dL Albumin (3.5-5.0) g/dL Urine Color Urine Appearance Urine pH (5.0-8.0) Ur Specific Maxie (1.005-1.025) Urine Protein (NEG-TRACE) MG/DL Urine Glucose (UA) (NEG) MG/DL Urine Ketones (NEG) MG/DL Urine Blood (NEG) Urine Nitrite (NEG) Ur Leukocyte Esterase (NEG) Urine RBC (0) /HPF Urine WBC (0-4) /HPF Ur Squamous Epith Cells /LPF Urine Bacteria /LPF Urine Opiates Screen (Not Detect) Ur Barbiturates Screen (Not Detect) Ur Phencyclidine Scrn (Not Detect) Ur Amphetamines Screen (Not Detect) U Benzodiazepines Scrn (Not Detect) Urine Cocaine Screen (Not Detect) U Marijuana (THC) Screen (Not Detect) Ethyl Alcohol mg/dL 05/08/20 05/08/20 05/08/20 Range/Units 14:27 14:27 14:27 WBC (4.8-10.8) X10*3/uL RBC (4.60-5.80) X10*6/uL Hgb (14.0-18.0) g/dl Hct (42-52) % MCV (80-98) fL MCH (27.0-33.0) pg MCHC (31.0-36.0) g/dl RDW (11.0-16.0) % Plt Count (160-400) X10*3/uL MPV (9.4-12.4) fL Immature Gran % (Auto) (0.0-0.4) % Neut % (Auto) (45-73) % Lymph % (Auto) (20-40) % [place] % (Auto) (2-11) % Eos % (Auto) (0-4) % Baso % (Auto) (0-2) % Lymph # (Auto) (1.2-4.9) X10*3/uL [place] # (Auto) (0.1-1.2) X10*3/uL Eos # (Auto) (0.0-0.4) X10*3/uL Baso # (Auto) (0.0-0.2) X10*3/uL Abs Immat Gran (auto) (0.00-0.03) X10*3/uL Absolute Neuts (auto) (2.0-8.3) X10*3/uL Absolute Nucleated RBC (0.0-0.012) X10*3/uL Nucleated RBC % (auto) (0.0-0.2) /100WBC PT (10.8-13.0) SEC INR (0.9-1.1) Sodium 136 (135-145) mmol/L Potassium 3.9 (3.3-5.1) mmol/l Chloride 103 (96-108) mmol/L Carbon Dioxide 20 L (22-29) mmol/L Anion Gap 17 (12-20) BUN 9 D (9-16) mg/dL Creatinine 0.79 (0.5-1.4) mg/dL Estim Creat Clear Calc 134.1 Estimated GFR > 60 POC Glucose (60-115) mg/dL Random Glucose 334 H D (60-115) mg/dL Lactic Acid 1.7 (0.5-2.0) mmol/L Calcium 8.8 D (8.4-10.2) mg/dL Magnesium 1.4 L* (1.6-2.6) mg/dL Total Bilirubin 0.4 (0.0-1.0) mg/dL Direct Bilirubin 0.2 (0.0-0.5) mg/dL AST 57 H (5-37) U/L ALT 40 (0-40) U/L Alkaline Phosphatase 97 (39-117) U/L Troponin I High Sens 23.6 (<3.5-35.0) ng/L B-Natriuretic Peptide (<100) pg/mL Total Protein 7.1 (6.5-8.0) g/dL Albumin 3.8 (3.5-5.0) g/dL Urine Color Urine Appearance Urine pH (5.0-8.0) Ur Specific Maxie (1.005-1.025) Urine Protein (NEG-TRACE) MG/DL Urine Glucose (UA) (NEG) MG/DL Urine Ketones (NEG) MG/DL Urine Blood (NEG) Urine Nitrite (NEG) Ur Leukocyte Esterase (NEG) Urine RBC (0) /HPF Urine WBC (0-4) /HPF Ur Squamous Epith Cells /LPF Urine Bacteria /LPF Urine Opiates Screen (Not Detect) Ur Barbiturates Screen (Not Detect) Ur Phencyclidine Scrn (Not Detect) Ur Amphetamines Screen (Not Detect) U Benzodiazepines Scrn (Not Detect) Urine Cocaine Screen (Not Detect) U Marijuana (THC) Screen (Not Detect) Ethyl Alcohol mg/dL 05/08/20 05/08/20 05/08/20 Range/Units 14:27 14:27 15:25 WBC (4.8-10.8) X10*3/uL RBC (4.60-5.80) X10*6/uL Hgb (14.0-18.0) g/dl Hct (42-52) % MCV (80-98) fL MCH (27.0-33.0) pg MCHC (31.0-36.0) g/dl RDW (11.0-16.0) % Plt Count (160-400) X10*3/uL MPV (9.4-12.4) fL Immature Gran % (Auto) (0.0-0.4) % Neut % (Auto) (45-73) % Lymph % (Auto) (20-40) % [place] % (Auto) (2-11) % Eos % (Auto) (0-4) % Baso % (Auto) (0-2) % Lymph # (Auto) (1.2-4.9) X10*3/uL [place] # (Auto) (0.1-1.2) X10*3/uL Eos # (Auto) (0.0-0.4) X10*3/uL Baso # (Auto) (0.0-0.2) X10*3/uL Abs Immat Gran (auto) (0.00-0.03) X10*3/uL Absolute Neuts (auto) (2.0-8.3) X10*3/uL Absolute Nucleated RBC (0.0-0.012) X10*3/uL Nucleated RBC % (auto) (0.0-0.2) /100WBC PT (10.8-13.0) SEC INR (0.9-1.1) Sodium (135-145) mmol/L Potassium (3.3-5.1) mmol/l Chloride (96-108) mmol/L Carbon Dioxide (22-29) mmol/L Anion Gap (12-20) BUN (9-16) mg/dL Creatinine (0.5-1.4) mg/dL Estim Creat Clear Calc Estimated GFR POC Glucose (60-115) mg/dL Random Glucose (60-115) mg/dL Lactic Acid (0.5-2.0) mmol/L Calcium (8.4-10.2) mg/dL Magnesium (1.6-2.6) mg/dL Total Bilirubin (0.0-1.0) mg/dL Direct Bilirubin (0.0-0.5) mg/dL AST (5-37) U/L ALT (0-40) U/L Alkaline Phosphatase (39-117) U/L Troponin I High Sens (<3.5-35.0) ng/L B-Natriuretic Peptide 107 H (<100) pg/mL Total Protein (6.5-8.0) g/dL Albumin (3.5-5.0) g/dL Urine Color YELLOW Urine Appearance CLEAR Urine pH 5.5 (5.0-8.0) Ur Specific Maxie <= 1.005 (1.005-1.025) Urine Protein 1+ H (NEG-TRACE) MG/DL Urine Glucose (UA) >=1000 H (NEG) MG/DL Urine Ketones NEG (NEG) MG/DL Urine Blood 1+ H (NEG) Urine Nitrite NEG (NEG) Ur Leukocyte Esterase NEG (NEG) Urine RBC 0-2 (0) /HPF Urine WBC 0-2 (0-4) /HPF Ur Squamous Epith Cells TRACE /LPF Urine Bacteria NONE /LPF Urine Opiates Screen (Not Detect) Ur Barbiturates Screen (Not Detect) Ur Phencyclidine Scrn (Not Detect) Ur Amphetamines Screen (Not Detect) U Benzodiazepines Scrn (Not Detect) Urine Cocaine Screen (Not Detect) U Marijuana (THC) Screen (Not Detect) Ethyl Alcohol 292 mg/dL 05/08/20 Range/Units 15:25 WBC (4.8-10.8) X10*3/uL RBC (4.60-5.80) X10*6/uL Hgb (14.0-18.0) g/dl Hct (42-52) % MCV (80-98) fL MCH (27.0-33.0) pg MCHC (31.0-36.0) g/dl RDW (11.0-16.0) % Plt Count (160-400) X10*3/uL MPV (9.4-12.4) fL Immature Gran % (Auto) (0.0-0.4) % Neut % (Auto) (45-73) % Lymph % (Auto) (20-40) % [place] % (Auto) (2-11) % Eos % (Auto) (0-4) % Baso % (Auto) (0-2) % Lymph # (Auto) (1.2-4.9) X10*3/uL [place] # (Auto) (0.1-1.2) X10*3/uL Eos # (Auto) (0.0-0.4) X10*3/uL Baso # (Auto) (0.0-0.2) X10*3/uL Abs Immat Gran (auto) (0.00-0.03) X10*3/uL Absolute Neuts (auto) (2.0-8.3) X10*3/uL Absolute Nucleated RBC (0.0-0.012) X10*3/uL Nucleated RBC % (auto) (0.0-0.2) /100WBC PT (10.8-13.0) SEC INR (0.9-1.1) Sodium (135-145) mmol/L Potassium (3.3-5.1) mmol/l Chloride (96-108) mmol/L Carbon Dioxide (22-29) mmol/L Anion Gap (12-20) BUN (9-16) mg/dL Creatinine (0.5-1.4) mg/dL Estim Creat Clear Calc Estimated GFR POC Glucose (60-115) mg/dL Random Glucose (60-115) mg/dL Lactic Acid (0.5-2.0) mmol/L Calcium (8.4-10.2) mg/dL Magnesium (1.6-2.6) mg/dL Total Bilirubin (0.0-1.0) mg/dL Direct Bilirubin (0.0-0.5) mg/dL AST (5-37) U/L ALT (0-40) U/L Alkaline Phosphatase (39-117) U/L Troponin I High Sens (<3.5-35.0) ng/L B-Natriuretic Peptide (<100) pg/mL Total Protein (6.5-8.0) g/dL Albumin (3.5-5.0) g/dL Urine Color Urine Appearance Urine pH (5.0-8.0) Ur Specific Maxie (1.005-1.025) Urine Protein (NEG-TRACE) MG/DL Urine Glucose (UA) (NEG) MG/DL Urine Ketones (NEG) MG/DL Urine Blood (NEG) Urine Nitrite (NEG) Ur Leukocyte Esterase (NEG) Urine RBC (0) /HPF Urine WBC (0-4) /HPF Ur Squamous Epith Cells /LPF Urine Bacteria /LPF Urine Opiates Screen Not Detected (Not Detect) Ur Barbiturates Screen POSITIVE H (Not Detect) Ur Phencyclidine Scrn Not Detected (Not Detect) Ur Amphetamines Screen Not Detected (Not Detect) U Benzodiazepines Scrn Not Detected (Not Detect) Urine Cocaine Screen Not Detected (Not Detect) U Marijuana (THC) Screen Not Detected (Not Detect) Ethyl Alcohol mg/dL Imaging Data Chest x-ray: Attestation: I personally reviewed and interpreted this imaging study as follows: Radiologist's impression: EXAMINATION: XR CHEST CLINICAL INFORMATION: Weakness. COMPARISON: Chest 05/02/2020 TECHNIQUE: Frontal view of the chest was obtained. FINDINGS: The lungs are hypoexpanded with increase interstitial markings in both lungs with mild blunting of right CP angle. The heart size and vascularity is normal. No gross bony abnormality seen. XR/XR chest 1V IMPRESSION: Cardiomegaly with bilateral increase interstitial markings likely pneumonitis. On most similar to previous study Suspect small right pleural effusion. CT scan - head: Attestation: I personally reviewed and interpreted this imaging study as follows: Radiologist's impression: EXAMINATION: CT HEAD WITHOUT CONTRAST CLINICAL INFORMATION: AMS was lethargic. COMPARISON: None TECHNIQUE: Contiguous axial imaging was performed from the skull base to vertex without intravenous administration of contrast. This CT examination was performed using dose optimization techniques as appropriate, variously including the following: *Automated exposure control *Adjustment of mA and/or kV according to patient size (this includes techniques or standardized protocols for targeted exams where dose is matched to indication/reason for exam; i.e. extremities or head) *Use of iterative reconstruction technique DLP: 858 mGy-cm FINDINGS: There is no evidence of acute intracranial hemorrhage or territorial infarction. No abnormal mass effect or midline shift is seen. Garcia to white matter differentiation is well preserved. No extra-axial fluid collections are identified. The ventricles are normal in size. It 58 The osseous structures and soft tissues are normal. The mastoid air cells and visualized portions of the paranasal sinuses are well aerated. CT/CT head/brain wo con IMPRESSION: No acute intracranial process seen. ECG Data Attestation: I personally reviewed and interpreted this ECG as follows: ECG interpretation date: 05/08/20 Interpretation: AFib with a rate of 92, normal QRS, normal QT, pr not measurable Discharge Plan Discharge Clinical Impression: Alcohol intoxication, Hypomagnesemia, Suicidal ideations Prescriptions: No Action tamsulosin 0.4 mg Capsule 0.4 mg PO DAILY RF: 0 fluoxetine 20 mg Capsule 20 mg PO DAILY RF: 0 doxycycline hyclate 100 mg capsule 100 mg PO DAILY Qty: 14 RF: 0 magnesium oxide 400 mg (241.3 mg magnesium) tablet 800 mg PO BID Qty: 20 RF: 0 multivitamin [One Daily Multivitamin] Tablet 1 tab PO DAILY RF: 0 furosemide 40 mg tablet 40 mg PO BID RF: 0 atorvastatin 40 mg tablet 40 mg PO BEDTIME RF: 0 metformin 500 mg tablet 500 mg PO BID RF: 0 metoprolol succinate 50 mg tablet extended release 24 hr 50 mg PO DAILY RF: 0 thiamine HCl (vitamin B1) 100 mg tablet 100 mg PO DAILY RF: 0 aspirin 81 mg tablet,delayed release (DR/EC) 81 mg PO DAILY RF: 0 spironolactone 25 mg tablet 25 mg PO DAILY RF: 0
--- NOTE | 2020-05-08 13:59 | PC.NURSE ---
313 POC RN AWARE AND COAGULANT DIPPER RONA GOMEZ ALSO AWARE
[2020-05-08 14:38] LABS: MANUAL DIFF FLAG NO
[2020-05-08 14:39] LABS: Basophils Percent Auto 0.5 % (0-2); Eosinophils Absolute Auto 0.1 X10*3/uL (0.0-0.4); Eosinophils Percent Auto 2.1 % (0-4); Hematocrit 37.1 % (42-52); Hemoglobin 12.2 g/dl (14.0-18.0); Imm Gran Abs Auto 0.04 X10*3/uL (0.00-0.03); Imm Gran Pct Auto 0.7 % (0.0-0.4); Lymphocytes Absolute Auto 1.4 X10*3/uL (1.2-4.9); Lymphocytes Percent Auto 24.4 % (20-40); Mean Corpuscular HGB Conc 32.9 g/dl (31.0-36.0); Mean Corpuscular Volume 97.4 fL (80-98); Mean Platelet Volume 10.6 fL (9.4-12.4); Monocytes Absolute Auto 0.6 X10*3/uL (0.1-1.2); Monocytes Percent Auto 11.3 % (2-11); Neutrophils Absolute Auto 3.5 X10*3/uL (2.0-8.3); Red Blood Count 3.81 X10*6/uL (4.60-5.80); White Blood Count 5.7 X10*3/uL (4.8-10.8)
[2020-05-08 14:46] LABS: INTERNATIONAL NORM RATIO 1.1 (0.9-1.1); Prothrombin Time 13.5 SEC (10.8-13.0)
[2020-05-08 15:05] LABS: Lactic Acid 1.7 mmol/L (0.5-2.0)
[2020-05-08 15:10] LABS: Ethanol 292 mg/dL; Platelet Count 82 X10*3/uL (160-400)
[2020-05-08 15:15] LABS: B Type Natriuretic Peptide 107 pg/mL (<100); Troponin-I High Sensitivity 23.6 ng/L (<3.5-35.0)
[2020-05-08 15:17] LABS: Alanine Aminotransferase 40 U/L (0-40); Albumin Level 3.8 g/dL (3.5-5.0); Alkaline Phosphatase 97 U/L (39-117); Anion Gap 17 (12-20); Aspartate Amino Transferase 57 U/L (5-37); Blood Urea Nitrogen 9 mg/dL (9-16); Calcium 8.8 mg/dL (8.4-10.2); Carbon Dioxide 20 mmol/L (22-29); Chloride 103 mmol/L (96-108); Creatinine Clr Calc Pharmacy 134.1; Estimated Glomerular Filt Rate > 60; Glucose Random 334 mg/dL (60-115); Magnesium 1.4 mg/dL (1.6-2.6); Potassium 3.9 mmol/l (3.3-5.1); Sodium 136 mmol/L (135-145); Total Protein 7.1 g/dL (6.5-8.0)
[2020-05-08 15:26] LABS: Bilirubin Direct 0.2 mg/dL (0.0-0.5); Bilirubin Total 0.4 mg/dL (0.0-1.0)
[2020-05-08] MEDS: Magnesium Sulfate/H2O 2 GM/50 ML PIGGYBACK IV (15:28)
[2020-05-08 15:44] LABS: Glucose Urine UA >=1000 MG/DL (NEG); Leukocyte Esterase Urine NEG (NEG); Nitrite Urine NEG (NEG); PH 5.5 (5.0-8.0); Specific Gravity - Urine <= 1.005 (1.005-1.025); Urine Blood 1+ (NEG); Urine Ketones NEG (NEG); Urine Protein 1+ MG/DL (NEG-TRACE)
[2020-05-08 15:48] LABS: Appearance Urine CLEAR; Color Urine YELLOW
[2020-05-08 16:00] VITALS: RESP 18
[2020-05-08 16:03] LABS: Amphetamine Screen Urine Not Detected (Not Detect); Barbiturates, Urine POSITIVE (Not Detect); Benzodiazepines Screen Urine Not Detected (Not Detect); Cannabinoid Screen Urine Not Detected (Not Detect); Cocaine Screen Urine Not Detected (Not Detect); Opiate Screen Urine Not Detected (Not Detect); Phencyclidine Screen Urine Not Detected (Not Detect)
[2020-05-08 16:04] LABS: RBC Urine 0-2 /HPF (0); Squamous Epithelial Cell Urine TRACE /LPF; WBC Urine 0-2 /HPF (0-4)
[2020-05-08 18:00] VITALS: BP 122/80; PULSE 95; RESP 18; TEMP 36.8; O2SAT 95
[2020-05-08 18:36] LABS: Magnesium 1.7 mg/dL (1.6-2.6)
[2020-05-08 18:40] LABS: Troponin-I High Sensitivity 27.6 ng/L (<3.5-35.0)
[2020-05-08 19:36] LABS: COVID-19 Test Negative (Negative)
--- NOTE | 2020-05-08 19:56 | MHC.RECOVSUP ---
ETOH/Substance o Current location: ED 17 o ? Intervention: o ? Plan: o ? Additional information: was not able to engage. with pt. He was asleep on several occasions that I went to speak with him.
[2020-05-08 21:54] VITALS: BP 138/87; PULSE 99; RESP 20; TEMP 36.6; O2SAT 95
--- NOTE | 2020-05-09 01:14 | PC.NURSE ---
erika told provider that pt will be discharged in the morning, once he gets an outpatient referral.
--- NOTE | 2020-05-09 01:14 | PC.NURSE ---
pt given juice and water.
[2020-05-09 03:33] LABS: Glucose, Whole Blood 223 mg/dL (60-115)
[2020-05-09 03:46] VITALS: BP 143/87; PULSE 94; RESP 18; TEMP 36.3; O2SAT 96
--- NOTE | 2020-05-09 03:56 | PC.NURSE ---
PT was just transferred into the pod. POC was found to be 223. Provider is aware.
[2020-05-09 06:00] VITALS: BP 172/98; PULSE 120; RESP 20; TEMP 36.2; O2SAT 96
[2020-05-09] MEDS: chlordiazePOXIDE HCl 5 MG CAPSULE 10 MG PO (06:54)
--- NOTE | 2020-05-09 07:00 | PC.NURSE ---
[facility] called to set up reevaluation for this PT because PT was unaware of any plan that was made the night before. Faxed over and [facility] confirmed that he would be seen again today.
--- NOTE | 2020-05-09 07:04 | PC.NURSE ---
Report received. Pt currently eating breakfast, denies complaints. Pt to be re-evaluated this morning.
[2020-05-09 09:36] VITALS: BP 172/97; PULSE 117; RESP 20; TEMP 36.4; O2SAT 98
[2020-05-09] MEDS: chlordiazePOXIDE HCl 5 MG CAPSULE 15 MG PO (10:02)
[2020-05-09 13:00] LABS: Glucose, Whole Blood 195 mg/dL (60-115)
[2020-05-09 16:02] VITALS: BP 175/111; PULSE 109; RESP 16; TEMP 36.2; O2SAT 99
[2020-05-09 16:22] VITALS: BP 147/90; PULSE 96
--- NOTE | 2020-05-09 17:00 | MHC.CARE ---
Pt was cleared for further mental health assessment and treatment by crisis team. Pt was offered detox placement several times by starting gate driver, which pt declined. When provider spoke with pt re: discharge, pt indicated that he wanted to go to detox, and that he wouldn't go unless he went from the hospital. This freelance writer conducted detox bedsearch, which has limited options due to pt's insurance (Medicare primary). No beds available this evening. Pt given information for [facility] and list of phone numbers to contact facilities independently. A lyft was requested for pt. First professional driver arrived and left after speaking with this freelance writer about the pick-up being at the emergency dept entrance, second professional driver has been assigned, with ETA of 17:15. Pt has discharged from ED and is awaiting at the pick-up spot.
== END 2020-05-09 16:56 | disposition home or self-care (01) ==
PROVIDERS: Nurse Practitioner Family; Emergency Provider Emergency Medicine
DX: F10.120 Alcohol abuse with intoxication, uncomplicated (principal); Y90.8 Blood alcohol level of 240 mg/100 ml or more; R45.851 Suicidal ideations; E83.42 Hypomagnesemia; Z20.822 Contact with and (suspected) exposure to COVID-19; K70.30 Alcoholic cirrhosis of liver without ascites; E11.9 Type 2 diabetes mellitus without complications; I48.91 Unspecified atrial fibrillation; I11.0 Hypertensive heart disease with heart failure; I50.9 Heart failure, unspecified
CPT/HCPCS: 36415; 70450; 71045; 80048; 80076; 80307; 80320; 81001; 82947; 83605; 83735; 83880; 84484; 85025; 85610; 87040; 87635; 93005; 99285; J3475

== ENCOUNTER 2020-05-27 16:19 | Emergency (ER) | payer MEDICARE, MEDICAID, SELFPAY ==
[2020-05-27 16:32] VITALS: BP 135/96; PULSE 110; PULSE 112; RESP 18; TEMP 36.6; O2SAT 94; O2SAT 994; BMI 43.7
--- NOTE | 2020-05-27 16:35 | ED.ALCOHOL ---
HPI - Alcohol General Chief Complaint: ETOH/Substance Use Stated Complaint: etoh Time Seen by Provider: 05/27/20 16:34 Source: patient Mode of arrival: EMS Limitations: no limitations History of Present Illness HPI narrative: Patient with history of alcohol abuse had few drinks today was walking on the street brought by EMS being intoxicated also said he vomited 2 times and has a chronic diarrhea denies any significant abdominal pain no other complaints as history of head injury MD complaint: alcohol intoxication Chronic alcohol use: Yes Previous visits for alcohol intoxication: Yes Related Data Home Medications Medication Instructions Recorded Confirmed aspirin 81 mg PO DAILY 01/22/20 05/08/20 atorvastatin 40 mg PO BEDTIME 01/22/20 05/08/20 furosemide 40 mg PO BID 01/22/20 05/08/20 metformin 500 mg PO BID 01/22/20 05/08/20 metoprolol succinate 50 mg PO DAILY 01/22/20 05/08/20 multivitamin [One Daily 1 tab PO DAILY 01/22/20 05/08/20 Multivitamin] spironolactone 25 mg PO DAILY 01/22/20 05/08/20 thiamine HCl (vitamin B1) 100 mg PO DAILY 01/22/20 05/08/20 fluoxetine 20 mg PO DAILY 05/02/20 05/08/20 tamsulosin 0.4 mg PO DAILY 05/02/20 05/08/20 Previous Rx's Medication Instructions Recorded doxycycline hyclate 100 mg PO DAILY #14 cap 05/05/20 magnesium oxide 800 mg PO BID #20 tab 05/05/20 Allergies Allergy/AdvReac Type Severity Reaction Status Date / Time Penicillins [PCN] Allergy Unknown UNKNOWN Verified 05/27/20 16:32 Review of Systems Review of Systems: Constitutional : No Weight loss, No Fever, No Chills ENT/Mouth : No sore throat, No Rhinorrhea Eyes: No Eye Pain, No Swelling Cardiovascular : No Chest Pain, +palpitations Respiratory : No Cough, No Sputum, no shortness of breath Gastrointestinal : +Nausea, +Vomiting, +Diarrhea, No abdominal Pain, no black stools Genitourinary : No Dysuria, No Urinary Frequency Musculoskeletal : No joint pain, No Myalgias, No Joint Swelling Skin : No Skin Lesions, No rash Neuro : No Weakness, No Numbness, No Dizziness, No Headache Psych : No Anxiety/Panic, No Depression Heme/Lymph: No Bruising, No Lymphadenopathy Endocrine : No Polyuria, No Polydipsia All other systems reviewed and are negative [facility] Past Medical History Medical History A-fib CAD (coronary artery disease) Cardiomyopathy CHF (congestive heart failure) Cirrhosis Depression Diabetes ETOH abuse HTN (hypertension) Social History Social History Household Members: None Housing: Apartment Alcohol intake: current Alcohol intake frequency: 3 or more drinks per day Alcohol type: beer Smoking Status: Unknown if ever smoked Use of substances other than those prescribed or required for medical reasons: Unknown Advance Directives: No Advance Directives Information Provided: No service: No Current occupational status: unemployed Physical Exam Vital Signs: Vital Signs: Last Vital Signs Temp 98.1 F 05/27/20 18:56 Pulse 101 H 05/27/20 18:56 Resp 18 05/27/20 18:56 BP 136/85 05/27/20 18:56 Pulse Ox 95 05/27/20 18:56 Body Mass Index 43.7 Appearance: Alert. Oriented X3. No acute distress. Intoxicated Eyes: Pupils equal, round and reactive to light. ENT: Pharynx normal. Neck: Normal inspection. Neck supple. CVS: Irregularly irregular heart rhythm Tachycardia+ Pulses normal. Respiratory: No respiratory distress. Breath sounds normal. Abdomen: Soft and nontender. Bowel sounds are present, no mass palpable, no CVA tenderness Skin: Skin warm and dry. Normal skin color. Normal skin turgor. Extremities: No lower extremity edema. Neuro: Oriented X 3. No motor deficit. No sensory deficit. Course Course Course Narrative: Patient has stable labs except for elevated alcohol level, ambulatory in the ER and steady gait ,discharge patient home for alcohol intoxication advised to stay at home and follow with detox [facility] - Alcohol Medical Records Attestation: I reviewed the patient's medical records. Lab Data Attestation: I reviewed the patient's lab results. Result diagrams: 05/27/20 17:23 05/27/20 17:23 Labs: Lab Results 05/27/20 05/27/20 05/27/20 Range/Units 17:23 17:23 17:23 WBC 7.2 (4.8-10.8) X10*3/uL RBC 4.01 L (4.60-5.80) X10*6/uL Hgb 12.8 L (14.0-18.0) g/dl Hct 39.0 L (42-52) % MCV 97.3 (80-98) fL MCH 31.9 (27.0-33.0) pg MCHC 32.8 (31.0-36.0) g/dl RDW 15.0 (11.0-16.0) % Plt Count 115 L D (160-400) X10*3/uL MPV 10.2 (9.4-12.4) fL Immature Gran % (Auto) 0.4 (0.0-0.4) % Neut % (Auto) 63.9 (45-73) % Lymph % (Auto) 20.2 (20-40) % [place] % (Auto) 13.9 H (2-11) % Eos % (Auto) 1.0 (0-4) % Baso % (Auto) 0.6 (0-2) % Lymph # (Auto) 1.5 (1.2-4.9) X10*3/uL [place] # (Auto) 1.0 (0.1-1.2) X10*3/uL Eos # (Auto) 0.1 (0.0-0.4) X10*3/uL Baso # (Auto) 0.0 (0.0-0.2) X10*3/uL Abs Immat Gran (auto) 0.03 (0.00-0.03) X10*3/uL Absolute Neuts (auto) 4.6 (2.0-8.3) X10*3/uL Absolute Nucleated RBC 0.000 (0.0-0.012) X10*3/uL Nucleated RBC % (auto) 0.0 (0.0-0.2) /100WBC Sodium 136 (135-145) mmol/L Potassium 3.5 (3.3-5.1) mmol/L Chloride 104 (96-108) mmol/L Carbon Dioxide 17 L (22-29) mmol/L Anion Gap 19 (12-20) BUN 6 L (9-16) mg/dL Creatinine 0.66 (0.5-1.4) mg/dL Estim Creat Clear Calc 141.1 Estimated GFR > 60 Random Glucose 166 H D (60-115) mg/dL Calcium 7.8 L D (8.4-10.2) mg/dL Magnesium 1.5 L (1.6-2.6) mg/dL Total Bilirubin 0.6 (0.0-1.0) mg/dL Direct Bilirubin 0.5 (0.0-0.5) mg/dL AST 62 H (5-37) U/L ALT 33 (0-40) U/L Alkaline Phosphatase 96 (39-117) U/L Total Protein 7.3 (6.5-8.0) g/dL Albumin 3.8 (3.5-5.0) g/dL Lipase 8 (8-78) U/L Ethyl Alcohol 277 mg/dL 05/27/20 Range/Units 17:23 WBC (4.8-10.8) X10*3/uL RBC (4.60-5.80) X10*6/uL Hgb (14.0-18.0) g/dl Hct (42-52) % MCV (80-98) fL MCH (27.0-33.0) pg MCHC (31.0-36.0) g/dl RDW (11.0-16.0) % Plt Count (160-400) X10*3/uL MPV (9.4-12.4) fL Immature Gran % (Auto) (0.0-0.4) % Neut % (Auto) (45-73) % Lymph % (Auto) (20-40) % [place] % (Auto) (2-11) % Eos % (Auto) (0-4) % Baso % (Auto) (0-2) % Lymph # (Auto) (1.2-4.9) X10*3/uL [place] # (Auto) (0.1-1.2) X10*3/uL Eos # (Auto) (0.0-0.4) X10*3/uL Baso # (Auto) (0.0-0.2) X10*3/uL Abs Immat Gran (auto) (0.00-0.03) X10*3/uL Absolute Neuts (auto) (2.0-8.3) X10*3/uL Absolute Nucleated RBC (0.0-0.012) X10*3/uL Nucleated RBC % (auto) (0.0-0.2) /100WBC Sodium (135-145) mmol/L Potassium (3.3-5.1) mmol/L Chloride (96-108) mmol/L Carbon Dioxide (22-29) mmol/L Anion Gap (12-20) BUN (9-16) mg/dL Creatinine (0.5-1.4) mg/dL Estim Creat Clear Calc Estimated GFR Random Glucose (60-115) mg/dL Calcium (8.4-10.2) mg/dL Magnesium (1.6-2.6) mg/dL Total Bilirubin (0.0-1.0) mg/dL Direct Bilirubin (0.0-0.5) mg/dL AST (5-37) U/L ALT (0-40) U/L Alkaline Phosphatase (39-117) U/L Total Protein (6.5-8.0) g/dL Albumin (3.5-5.0) g/dL Lipase Cancelled (8-78) U/L Ethyl Alcohol mg/dL ECG Data Attestation: I personally reviewed and interpreted this ECG as follows: Interpretation: AFib with ventricular rate of 82 beats per minute left axis deviation no acute ST T wave changes no acute ischemia Discharge Plan Discharge Clinical Impression: ETOH abuse Patient Disposition: Home, Self-Care Instructions: Abuse of Alcohol (ED) Additional Instructions: Stop alcohol use follow-up with detox/PCP Prescriptions: No Action tamsulosin 0.4 mg Capsule 0.4 mg PO DAILY RF: 0 fluoxetine 20 mg Capsule 20 mg PO DAILY RF: 0 doxycycline hyclate 100 mg capsule 100 mg PO DAILY Qty: 14 RF: 0 magnesium oxide 400 mg (241.3 mg magnesium) tablet 800 mg PO BID Qty: 20 RF: 0 multivitamin [One Daily Multivitamin] Tablet 1 tab PO DAILY RF: 0 furosemide 40 mg tablet 40 mg PO BID RF: 0 atorvastatin 40 mg tablet 40 mg PO BEDTIME RF: 0 metformin 500 mg tablet 500 mg PO BID RF: 0 metoprolol succinate 50 mg tablet extended release 24 hr 50 mg PO DAILY RF: 0 thiamine HCl (vitamin B1) 100 mg tablet 100 mg PO DAILY RF: 0 aspirin 81 mg tablet,delayed release (DR/EC) 81 mg PO DAILY RF: 0 spironolactone 25 mg tablet 25 mg PO DAILY RF: 0 Interventions: ED Discharge Assessment Last Done: 05/27/20 20:03 Discharge Date/Time: 05/27/20 20:10 Print Language: [place]
--- NOTE | 2020-05-27 16:59 | ECG_ITS ---
Test Reason : TACKY Blood Pressure : / mmHG Vent. Rate : 082 BPM Atrial Rate : 083 BPM P-R Int : 000 ms QRS Dur : 100 ms QT Int : 396 ms P-R-T Axes : 000 -85 049 degrees QTc Int : 462 ms Atrial fibrillation Left axis deviation Inferior infarct (cited on or before 02-JUL-2016) Anterior infarct (cited on or before 02-JUL-2016) Abnormal ECG When compared with ECG of 08-MAY-2020 17:34, No significant change was found Referred By: Jarod Argueta Electronically Signed By:ADRIANA CORRAL
--- NOTE | 2020-05-27 17:03 | PC.NURSE ---
pt eating and drinking at this time.
[2020-05-27 17:29] LABS: MANUAL DIFF FLAG NO
[2020-05-27 17:36] LABS: Basophils Percent Auto 0.6 % (0-2); Eosinophils Absolute Auto 0.1 X10*3/uL (0.0-0.4); Hemoglobin 12.8 g/dl (14.0-18.0); Imm Gran Abs Auto 0.03 X10*3/uL (0.00-0.03); Imm Gran Pct Auto 0.4 % (0.0-0.4); Lymphocytes Absolute Auto 1.5 X10*3/uL (1.2-4.9); Lymphocytes Percent Auto 20.2 % (20-40); Mean Corpuscular HGB Conc 32.8 g/dl (31.0-36.0); Mean Corpuscular Hemoglobin 31.9 pg (27.0-33.0); Mean Corpuscular Volume 97.3 fL (80-98); Mean Platelet Volume 10.2 fL (9.4-12.4); Monocytes Percent Auto 13.9 % (2-11); Neutrophils Absolute Auto 4.6 X10*3/uL (2.0-8.3); Neutrophils Percent Auto 63.9 % (45-73); Platelet Count 115 X10*3/uL (160-400); Red Blood Count 4.01 X10*6/uL (4.60-5.80); White Blood Count 7.2 X10*3/uL (4.8-10.8)
[2020-05-27 17:59] LABS: Ethanol 277 mg/dL
[2020-05-27 18:06] LABS: Alanine Aminotransferase 33 U/L (0-40); Albumin Level 3.8 g/dL (3.5-5.0); Alkaline Phosphatase 96 U/L (39-117); Anion Gap 19 (12-20); Aspartate Amino Transferase 62 U/L (5-37); Bilirubin Direct 0.5 mg/dL (0.0-0.5); Bilirubin Total 0.6 mg/dL (0.0-1.0); Blood Urea Nitrogen 6 mg/dL (9-16); Calcium 7.8 mg/dL (8.4-10.2); Carbon Dioxide 17 mmol/L (22-29); Chloride 104 mmol/L (96-108); Creatinine Clr Calc Pharmacy 141.1; Estimated Glomerular Filt Rate > 60; Glucose Random 166 mg/dL (60-115); Lipase 8 U/L (8-78); Magnesium 1.5 mg/dL (1.6-2.6); Potassium 3.5 mmol/L (3.3-5.1); Sodium 136 mmol/L (135-145); Total Protein 7.3 g/dL (6.5-8.0)
[2020-05-27 18:56] VITALS: BP 136/85; PULSE 101; RESP 18; TEMP 36.7; O2SAT 95
--- NOTE | 2020-05-27 20:02 | PC.NURSE ---
Patient left before receiving medication.
--- NOTE | 2020-05-27 20:16 | MHC.RECOVSUP ---
ETOH o Current location: o Identified substance use concern: ? Intervention: o Community resources provided o Harm reduction discussion ? Plan: o Follow up tomorrow o Patient to follow up with [facility] after discharge ? Additional information: I was able to speak with pt and was able to provide him with some resources on MAT, Vivitrol and outpatient services. pt was a bit reserved and was not trying to engage in conversation. I was not able to get any other information from pt
== END 2020-05-27 20:10 | disposition home or self-care (01) ==
PROVIDERS: Emergency Provider Internal Medicine
DX: F10.129 Alcohol abuse with intoxication, unspecified (principal); Y90.8 Blood alcohol level of 240 mg/100 ml or more; Z79.899 Other long term (current) drug therapy; Z79.82 Long term (current) use of aspirin
CPT/HCPCS: 36415; 80048; 80076; 80320; 83690; 83735; 85025; 93005; 99283; 99284

== ENCOUNTER 2020-07-18 10:31 | Outpatient (REF) | payer MEDICARE, MEDICAID, SELFPAY ==
--- NOTE | ~2020-07-18 | XR_ITS ---
EXAMINATION: XR CHEST CLINICAL INFORMATION: Other signs and symptoms involving the circulatory and respiratory systems. COMPARISON: Previous chest x-rays and chest CTA April 2020 TECHNIQUE: 2 views of the chest were obtained. FINDINGS: The cardiac silhouette is enlarged but stable. Hilar and mediastinal contours are unremarkable. The lungs are clear. There is no pleural effusion or pneumothorax. There are degenerative changes of the spine. XR/XR chest 2V IMPRESSION: Stable enlargement of the cardiac silhouette. No evidence for acute disease in the chest.
== END 2020-07-18 10:32 | disposition home or self-care (01) ==
LOC: HO.XRAY 10:31
PROVIDERS: PCP Family Medicine; Visit Provider Family Medicine
DX: R09.89 Other specified symptoms and signs involving the circulatory and respiratory systems (principal)
CPT/HCPCS: 71046

== ENCOUNTER → 2020-07-27 10:40 | Outpatient (BNVA) | payer MEDICARE, MEDICAID, SELFPAY | PROVIDERS: PCP Family Medicine; Visit Provider Surgery Vascular Surgery | DX: I83.11 Varicose veins of right lower extremity with inflammation (principal) | CPT/HCPCS: 99202 ==

== ENCOUNTER 2020-08-03 12:33 | Outpatient (REF) | payer MEDICARE, MEDICAID, SELFPAY ==
--- NOTE | ~2020-08-03 | US_ITS ---
EXAMINATION: COLOR-FLOW DUPLEX IMAGING OF THE BILATERAL LOWER EXTREMITY ARTERIAL SYSTEM. VELOCITY MEASUREMENTS THROUGHOUT THE FEMORAL ARTERIES WITH ANKLE-BRACHIAL PERIPHERAL ARTERIAL TESTING. CLINICAL INFORMATION: This is a 59-year-old male with history of peripheral arterial disease. Interventional Radiologist: Caden Regalado M.D., F.S.I.R., F.A.C.R. RIGHT FEMORAL RUNOFF VELOCITIES: The right common femoral artery measures 100 cm/s and triphasic. The right profunda femoral artery is 139 cm/s and is triphasic. Right proximal superficial femoral artery measures 78 cm/s and triphasic. Mid superficial femoral artery is 72 cm/s and triphasic. Distal right superficial femoral artery measures 56 cm/s and is triphasic. Right popliteal velocity measures 46 cm/s and is biphasic. The posterior tibial artery velocity appears occluded. The right ankle-brachial index is 1.28 when measured and the dorsalis pedis. However, it measures 0.44 the posterior tibial. LEFT FEMORAL RUNOFF VELOCITIES: The left common femoral artery measures 71 cm/s and triphasic. The left profunda femoral artery is 67 cm/s and is triphasic. Left proximal superficial femoral artery measures 65 cm/s and triphasic. Mid superficial femoral artery is 70 cm/s and triphasic. Distal left superficial femoral artery measures 77 cm/s and is triphasic. Left popliteal velocity measures 58 cm/s and is triphasic. The posterior tibial artery is occluded. The right ankle-brachial index measures 1.29. This is also normal within the posterior tibial artery measurement. US/US arterial duplex LE BI IMPRESSION: 1. There is occlusion bilaterally in the posterior tibial arteries. 2. There are bilateral normal arterial inflow studies without evidence of hemodynamically significant stenosis.
--- NOTE | ~2020-08-03 | US_ITS ---
EXAMINATION: COLOR-FLOW DUPLEX IMAGING OF THE BILATERAL LOWER EXTREMITY ARTERIAL SYSTEM. VELOCITY MEASUREMENTS THROUGHOUT THE FEMORAL ARTERIES WITH ANKLE-BRACHIAL PERIPHERAL ARTERIAL TESTING. CLINICAL INFORMATION: This is a 59-year-old male with history of peripheral arterial disease. Interventional Radiologist: Caden Regalado M.D., F.S.I.R., F.Ray.C.R. RIGHT FEMORAL RUNOFF VELOCITIES: The right common femoral artery measures 100 cm/s and triphasic. The right profunda femoral artery is 139 cm/s and is triphasic. Right proximal superficial femoral artery measures 78 cm/s and triphasic. Mid superficial femoral artery is 72 cm/s and triphasic. Distal right superficial femoral artery measures 56 cm/s and is triphasic. Right popliteal velocity measures 46 cm/s and is biphasic. The posterior tibial artery velocity appears occluded. The right ankle-brachial index is 1.28 when measured and the dorsalis pedis. However, it measures 0.44 the posterior tibial. LEFT FEMORAL RUNOFF VELOCITIES: The left common femoral artery measures 71 cm/s and triphasic. The left profunda femoral artery is 67 cm/s and is triphasic. Left proximal superficial femoral artery measures 65 cm/s and triphasic. Mid superficial femoral artery is 70 cm/s and triphasic. Distal left superficial femoral artery measures 77 cm/s and is triphasic. Left popliteal velocity measures 58 cm/s and is triphasic. The posterior tibial artery is occluded. The right ankle-brachial index measures 1.29. This is also normal within the posterior tibial artery measurement. US/US SURI complete IMPRESSION: 1. There is occlusion bilaterally in the posterior tibial arteries. 2. There are bilateral normal arterial inflow studies without evidence of hemodynamically significant stenosis.
== END 2020-08-03 12:34 | disposition home or self-care (01) ==
LOC: HO.US 12:33
PROVIDERS: Visit Provider Surgery Vascular Surgery
DX: I83.893 Varicose veins of bilateral lower extremities with other complications (principal); I73.9 Peripheral vascular disease, unspecified
CPT/HCPCS: 93923; 93925

== ENCOUNTER 2020-08-09 09:47 | Outpatient (REF) | payer MEDICARE, MEDICAID, SELFPAY ==
--- NOTE | ~2020-08-09 | US_ITS ---
EXAMINATION: RIGHT and LEFT LOWER EXTREMITY VENOUS ULTRASOUND (Reflux Exam) CLINICAL INDICATION: leg pain and varicose veins. COMPARISON: None. TECHNIQUE: Color flow triplex imaging and compression Doppler was performed to evaluate both the deep and the superficial systems bilaterally. To evaluate the superficial system, the examination was performed in the upright position. Color-flow Doppler ultrasound and compression ultrasound were utilized. In addition, maneuvers were utilized to demonstrate reflux. FINDINGS: 1. DEEP VENOUS ULTRASOUND OF THE RIGHT LOWER EXTREMITY: Respiratory variation, normal compression and augmented flow are noted in the right common femoral vein as well as the right popliteal vein and there is no evidence of deep venous thrombosis at these locations. There is no evidence of reflux in the deep system in either the common femoral vein or the popliteal vein. There is no evidence of a Vasquez's cyst. 2. SUPERFICIAL ULTRASOUND WITH DOPPLER OF RIGHT LOWER EXTREMITY: The right great saphenous vein at the saphenofemoral junction measures 9 mm, at the mid thigh 4 mm, aybje-mri-sxyx 4 mm, wakqh-syi-rstv 4 mm, at mid calf 4 mm and at the ankle measures 3 mm. There is greater than 2.8 seconds reflux in the mid thigh and 2.3 seconds reflux in the mid calf. The right small saphenous vein is not seen. There are perforators in the thigh that measure 2 and 3 mm and demonstrating greater than 2.3 and greater than 3.2 seconds reflux. There are varicose veins in the calf and thigh demonstrate reflux. The largest measures 5 mm in the mid thigh and demonstrates 2.4 seconds reflux. 3. DEEP VENOUS ULTRASOUND OF THE LEFT LOWER EXTREMITY: Respiratory variation, normal compression and augmented flow are noted in the left common femoral vein as well as the left popliteal vein and there is no evidence of deep venous thrombosis at these locations. There is no evidence of reflux in the deep system in either the common femoral vein or the popliteal vein. . There is no evidence of a Vasquez's cyst. 4. SUPERFICIAL ULTRASOUND WITH DOPPLER OF LEFT LOWER EXTREMITY: Left great saphenous vein at the saphenofemoral junction measures 9 mm, at the mid thigh 4 mm, edixd-kel-mdlk 3 mm, beoaq-eam-shiy 4 mm, at mid calf 2 mm and at the ankle measures 3 mm. There is greater than 3.3 seconds reflux at the knee and 2.1 seconds reflux in the mid calf. There is an accessory left greater lateral greater saphenous vein that measures 0.3 cm and does not demonstrate reflux. The left small saphenous vein is not seen. There are varicosities in the thigh and calf. The largest measures 7 mm in the proximal calf and demonstrates greater than 3.1 seconds reflux. US/US venous duplex LE BI IMPRESSION: 1. No evidence of reflux or thrombus in the common femoral veins or popliteal veins bilaterally. 2. Bilateral greater saphenous vein reflux.
== END 2020-08-09 09:48 | disposition home or self-care (01) ==
LOC: HO.US 09:47
PROVIDERS: Visit Provider Surgery Vascular Surgery
DX: I83.11 Varicose veins of right lower extremity with inflammation (principal)
CPT/HCPCS: 93970

== ENCOUNTER 2020-08-18 04:55 | Inpatient (IN) | payer MEDICARE, MEDICAID, SELFPAY ==
[2020-08-18] VITALS (16 sets, daily range): BP systolic 125–161; BP diastolic 70–95; PULSE 80–140; RESP 15–31; TEMP 36.4–37.3; O2SAT 94–97; BMI 37.7; BMI 36.4
--- NOTE | ~2020-08-18 | XR_ITS ---
EXAMINATION: XR CHEST CLINICAL INFORMATION: Rule out CHF COMPARISON: 07/18/2020 TECHNIQUE: Frontal view of the chest was obtained. FINDINGS: Cardiac leads overlie the chest. The lungs are well expanded. There is increased bronchial wall thickening with patchy opacities. No pleural effusion or pneumothorax. The cardiomediastinal silhouette is unchanged. XR/XR chest 1V IMPRESSION: Increased bronchial wall thickening with patchy opacities. Considerations include development of edema versus a small airways process such as atypical/viral infection.
--- NOTE | ~2020-08-18 | CT_ITS ---
EXAMINATION: CT HEAD WITHOUT CONTRAST CLINICAL INFORMATION: Fall, EtOH COMPARISON: 05/08/2020. TECHNIQUE: Contiguous axial imaging was performed from the skull base to vertex without intravenous administration of contrast. This CT examination was performed using dose optimization techniques as appropriate, variously including the following: *Automated exposure control *Adjustment of mA and/or kV according to patient size (this includes techniques or standardized protocols for targeted exams where dose is matched to indication/reason for exam; i.e. extremities or head) *Use of iterative reconstruction technique DLP: 765 mGy-cm FINDINGS: There is no evidence of acute intracranial hemorrhage or territorial infarction. No abnormal mass effect or midline shift is seen. Garcia to white matter differentiation is well preserved. No extra-axial fluid collections are identified. The ventricles are normal in size. Scalp swelling right posterior parietal region without underlying fracture. The mastoid air cells and visualized portions of the paranasal sinuses are well aerated. CT/CT head/brain wo con IMPRESSION: Scalp swelling right posterior parietal region without underlying fracture. No intracranial hemorrhage.
--- NOTE | 2020-08-18 05:23 | ECG_ITS ---
Test Reason : CHEST PAIN Blood Pressure : / mmHG Vent. Rate : 119 BPM Atrial Rate : 102 BPM P-R Int : 000 ms QRS Dur : 096 ms QT Int : 372 ms P-R-T Axes : 000 -86 087 degrees QTc Int : 523 ms Atrial fibrillation with rapid ventricular response with premature ventricular or aberrantly conducted complexes Left axis deviation Low voltage QRS Cannot rule out Inferior infarct (cited on or before 02-JUL-2016) Cannot rule out Anterior infarct (cited on or before 02-JUL-2016) Prolonged QT Abnormal ECG When compared with ECG of 27-MAY-2020 19:01, Serial changes of Anterior infarct Present Referred By: Veronica Quiles Electronically Signed By:COLIN LLAMAS MD
--- NOTE | 2020-08-18 05:27 | ED.GENADULT ---
HPI - General Adult General Chief complaint: ETOH/Substance Use Stated complaint: ETOH Time Seen by Provider: 08/18/20 05:04 Source: patient and EMS Mode of arrival: EMS Limitations: no limitations History of Present Illness HPI narrative: Patient is brought by EMS to emergency room. EMS receive a phone call from a bystander, found the patient on the floor, on the rain, unable to get up. Patient states that he drank lot of alcohol, slipped in the rain, unable to get up. Patient was found on the ground, incontinent of stool, shivering. Patient states that he feels well, has no pain. However, on review of systems, patient states that he has had mild chest pressure for over a day now, denies shortness of breath, no abdominal pain. Related Data Home Medications Medication Instructions Recorded Confirmed aspirin 81 mg PO DAILY 01/22/20 05/08/20 atorvastatin 40 mg PO BEDTIME 01/22/20 05/08/20 furosemide 40 mg PO BID 01/22/20 05/08/20 metformin 500 mg PO BID 01/22/20 05/08/20 metoprolol succinate 50 mg PO DAILY 01/22/20 05/08/20 multivitamin [One Daily 1 tab PO DAILY 01/22/20 05/08/20 Multivitamin] spironolactone 25 mg PO DAILY 01/22/20 05/08/20 thiamine HCl (vitamin B1) 100 mg PO DAILY 01/22/20 05/08/20 fluoxetine 20 mg PO DAILY 05/02/20 05/08/20 tamsulosin 0.4 mg PO DAILY 05/02/20 05/08/20 Previous Rx's Medication Instructions Recorded doxycycline hyclate 100 mg PO DAILY #14 cap 05/05/20 magnesium oxide 800 mg PO BID #20 tab 05/05/20 Allergies Allergy/AdvReac Type Severity Reaction Status Date / Time Penicillins [PCN] Allergy Unknown UNKNOWN Verified 08/18/20 05:19 Review of Systems Review of Systems: Constitutional : No Weight loss, No Fever, No Chills, No Night Sweats, No Fatigue, No Malaise ENT/Mouth : No Hearing loss, No Ear Pain, No Nasal Congestion, No Sinus Pain, No Hoarseness, No sore throat, No Rhinorrhea, No Swallowing Difficulty Eyes: No Eye Pain, No Swelling, No Redness, No Foreign Body, No Discharge, No Vision Changes Cardiovascular : Complaining of chest pressure for more than a day, No SOB, No Dyspnea on Exertion, No Orthopnea, No Edema, No Palpitations Respiratory : No Cough, No Sputum, No Wheezing, No Smoke Exposure, No Dyspnea Gastrointestinal : No Nausea, No Vomiting, No Diarrhea, No Constipation, No abdominal Pain, No Hematochezia, No Melena Genitourinary : no irregular bleeding, No Dysuria, No Urinary Frequency, No Hematuria, No Urinary Incontinence, No Urgency, No Flank Pain, No Urinary Flow Changes, No Hesitancy Musculoskeletal : No joint pain, no joint swelling, complaining of chronic diabetic neuropathy bilaterally Skin : No Skin Lesions, No rash Neuro : No Weakness, No Numbness, No Paresthesias, No Loss of Consciousness, No Dizziness, No Headache Psych : No Anxiety/Panic, No Depression, No SI/HI/AH/VH, No Social Issues, Heme/Lymph: No Bruising, No Bleeding,No Lymphadenopathy Endocrine : No Polyuria, No Polydipsia, No Temperature Intolerance [facility] Past Medical History Medical History A-fib CAD (coronary artery disease) Cardiomyopathy CHF (congestive heart failure) Cirrhosis Depression Diabetes ETOH abuse HTN (hypertension) Social History Social History Household Members: None Housing: Apartment Alcohol intake: current Alcohol intake frequency: 3 or more drinks per day Alcohol type: beer Smoking Status: Never smoker Use of substances other than those prescribed or required for medical reasons: No Advance Directives: No Advance Directives Information Provided: No service: No Current occupational status: unemployed Physical Exam Vital Signs: Vital Signs: Last Vital Signs Temp 97.5 F 08/18/20 05:20 Pulse 100 08/18/20 06:20 Resp 16 08/18/20 06:20 BP 143/83 H 08/18/20 06:20 Pulse Ox 96 08/18/20 06:20 Body Mass Index 37.7 Appearance: Alert. Oriented X3. No acute distress. Calm, cooperative, disheveled, wet Eyes: Pupils equal, round and reactive to light. ENT: Pharynx normal. Neck: Normal inspection. Neck supple. No lymph nodes noted. No crepitus CVS: Normal heart rate and rhythm. Pulses normal. Normal S1 and S2 Respiratory: No respiratory distress. Breath sounds normal. No Wheezing. No rales Abdomen: Soft and nontender. No rigidity. No distention. good BS x4 Skin: chronic venous stasis bilaterally in lower extremities, Extremities: No lower extremity edema. Neuro: Oriented X 3. No motor deficit. No sensory deficit. Moving all extermities. No slurred speech. Course Course Course Narrative: Patient's heart rate 120-140, patient was given 10 mg of IV Cardizem. No heart rate between 110-120. Patient's labs pending,. Sign out given to Dr. Joy Medical Decision Making Lab Data Result diagrams: 08/18/20 06:31 08/18/20 06:31 Labs: Lab Results 08/18/20 08/18/20 08/18/20 Range/Units 05:48 06:31 06:31 PT 14.7 H (10.8-13.0) SEC INR 1.2 H (0.9-1.1) Magnesium 1.3 L* (1.6-2.6) mg/dL B-Natriuretic Peptide Cancelled ECG Data Attestation: I personally reviewed and interpreted this ECG as follows: (Atrial fibrillation, heart rate 119, QTC 523, no significant changes on EKG compared to EKG from 05/27/2020) Discharge Plan Discharge Clinical Impression: ETOH abuse, Atrial fibrillation, rapid Prescriptions: No Action tamsulosin 0.4 mg Capsule 0.4 mg PO DAILY RF: 0 fluoxetine 20 mg Capsule 20 mg PO DAILY RF: 0 doxycycline hyclate 100 mg capsule 100 mg PO DAILY Qty: 14 RF: 0 magnesium oxide 400 mg (241.3 mg magnesium) tablet 800 mg PO BID Qty: 20 RF: 0 multivitamin [One Daily Multivitamin] Tablet 1 tab PO DAILY RF: 0 furosemide 40 mg tablet 40 mg PO BID RF: 0 atorvastatin 40 mg tablet 40 mg PO BEDTIME RF: 0 metformin 500 mg tablet 500 mg PO BID RF: 0 metoprolol succinate 50 mg tablet extended release 24 hr 50 mg PO DAILY RF: 0 thiamine HCl (vitamin B1) 100 mg tablet 100 mg PO DAILY RF: 0 aspirin 81 mg tablet,delayed release (DR/EC) 81 mg PO DAILY RF: 0 spironolactone 25 mg tablet 25 mg PO DAILY RF: 0
[2020-08-18] MEDS: dilTIAZem HCL 50 MG/10 ML VIAL 10 MG IVPUSH ×2 (06:17→08:52)
[2020-08-18 06:30] LABS: Magnesium 1.3 mg/dL (1.6-2.6)
[2020-08-18 06:37] LABS: MANUAL DIFF FLAG NO
[2020-08-18 06:46] LABS: INTERNATIONAL NORM RATIO 1.2 (0.9-1.1); Prothrombin Time 14.7 SEC (10.8-13.0)
[2020-08-18 06:55] LABS: Basophils Percent Auto 0.2 % (0-2); Eosinophils Percent Auto 0.1 % (0-4); Hematocrit 37.3 % (42-52); Hemoglobin 12.4 g/dl (14.0-18.0); Imm Gran Abs Auto 0.05 X10*3/uL (0.00-0.03); Imm Gran Pct Auto 0.6 % (0.0-0.4); Lymphocytes Absolute Auto 1.2 X10*3/uL (1.2-4.9); Lymphocytes Percent Auto 13.7 % (20-40); Mean Corpuscular HGB Conc 33.2 g/dl (31.0-36.0); Mean Corpuscular Hemoglobin 30.7 pg (27.0-33.0); Mean Corpuscular Volume 92.3 fL (80-98); Mean Platelet Volume 10.3 fL (9.4-12.4); Monocytes Absolute Auto 0.7 X10*3/uL (0.1-1.2); Monocytes Percent Auto 8.1 % (2-11); Neutrophils Absolute Auto 6.7 X10*3/uL (2.0-8.3); Neutrophils Percent Auto 77.3 % (45-73); Platelet Count 146 X10*3/uL (160-400); Red Blood Count 4.04 X10*6/uL (4.60-5.80); Red Cell Distribution Width 13.7 % (11.0-16.0); White Blood Count 8.6 X10*3/uL (4.8-10.8)
[2020-08-18] MEDS: Magnesium Sulfate/H2O 2 GM/50 ML PIGGYBACK IV (07:01)
[2020-08-18] MEDS: Metoprolol Succinate ER 50 MG TAB.ER.24H PO (07:09)
[2020-08-18] MEDS: Furosemide 40 MG/4 ML VIAL IVPUSH (07:09)
[2020-08-18 07:11] LABS: Ethanol 174 mg/dL
[2020-08-18 07:20] LABS: B Type Natriuretic Peptide 99 pg/mL (<100)
[2020-08-18 07:22] LABS: Alanine Aminotransferase 26 U/L (0-40); Albumin Level 3.9 g/dL (3.5-5.0); Alkaline Phosphatase 103 U/L (39-117); Anion Gap 27 (12-20); Aspartate Amino Transferase 46 U/L (5-37); Bilirubin Direct 0.5 mg/dL (0.0-0.5); Bilirubin Total 1.2 mg/dL (0.0-1.0); Blood Urea Nitrogen 7 mg/dL (9-16); Carbon Dioxide 13 mmol/L (22-29); Chloride 96 mmol/L (96-108); Creatinine Clr Calc Pharmacy 132.9; Estimated Glomerular Filt Rate > 60; Glucose Random 199 mg/dL (60-115); Sodium 132 mmol/L (135-145); Total Protein 7.8 g/dL (6.5-8.0)
[2020-08-18 07:39] LABS: COVID-19 Test Positive (Negative)
[2020-08-18 07:50] LABS: VBG Base Excess -6.9 mmol/L; VBG HCO3 16 mmol/L (22-26); VBG pCO2 27 mmHg; VBG pH 7.38 (7.32-7.43); VBG pO2 87 mmHg
[2020-08-18 07:54] LABS: Venous Blood Gas Refer to POC result
[2020-08-18 08:11] LABS: Influenza A PCR NEGATIVE (Negative); Influenza B PCR NEGATIVE (Negative); Resp Syncy Virus RNA Qual PCR NEGATIVE (Negative); SARS COV2 PCR INHOUSE POSITIVE (Negative)
[2020-08-18 08:16] LABS: Osmolality, Serum 316 mosm/kg (281-305)
[2020-08-18] MEDS: Acetaminophen 325 MG TABLET 650 MG PO (08:22)
[2020-08-18 08:38] LABS: Glucose Urine UA 100 MG/DL (NEG); Leukocyte Esterase Urine NEG (NEG); Nitrite Urine NEG (NEG); PH 5.5 (5.0-8.0); Urine Blood 2+ (NEG); Urine Ketones NEG (NEG); Urine Protein 2+ MG/DL (NEG-TRACE)
[2020-08-18 08:39] LABS: Appearance Urine CLEAR; Color Urine YELLOW
[2020-08-18 08:51] LABS: WBC Urine 0 /HPF (0-4)
[2020-08-18 08:58] LABS: Amphetamine Screen Urine Not Detected (Not Detect); Barbiturates, Urine Not Detected (Not Detect); Benzodiazepines Screen Urine Not Detected (Not Detect); Cannabinoid Screen Urine Not Detected (Not Detect); Cocaine Screen Urine Not Detected (Not Detect); Opiate Screen Urine Not Detected (Not Detect); Phencyclidine Screen Urine Not Detected (Not Detect)
[2020-08-18] MEDS: dilTIAZem HCL 125 MG in 0.9 % Sodium Chloride 100 ML 10 MG IVCONT (10:37)
[2020-08-18 11:25] LABS: Anion Gap 21 (12-20); Blood Urea Nitrogen 7 mg/dL (9-16); Calcium 9.2 mg/dL (8.4-10.2); Carbon Dioxide 19 mmol/L (22-29); Chloride 99 mmol/L (96-108); Creatinine Clr Calc Pharmacy 144.3; Estimated Glomerular Filt Rate > 60; Glucose Random 217 mg/dL (60-115); Potassium 3.9 mmol/L (3.3-5.1); Sodium 135 mmol/L (135-145)
--- NOTE | 2020-08-18 13:17 | P.HPHOSP_ITS ---
History of Present Illness Date of Service: 08/18/20 Chief Complaint: Found intoxicated This is a 59-year-old Slovak-speaking male with multiple medical problems who was brought to the emergency department for intoxication. Patient reportedly drinks ?a lot? and fell and was unable to get up. Patient does not recall this and does not know why he was brought to the emergency department. While in the emergency department he was noted to be in atrial fibrillation with rapid ventricular response. He was given his home dose of metoprolol with no improvement in his heart rate. He was given a bolus of IV Cardizem and subsequently started on a Cardizem drip. Heart rate has been improving. Magnesium level was noted to be low at 1.3 and this was replaced. His alcohol level was elevated at 174. He was also noted to be COVID positive. He denies any chest pain, palpitations, cough, shortness of breath does report feeling warm. Review of Systems Review of Systems: Yes all other systems are reviewed and are negative Constitutional: Constitutional: Denies chills Cardiovascular: Cardiovascular: Denies chest pain Respiratory: Respiratory: Denies cough Gastrointestinal: Gastrointestinal: Denies abdominal pain [facility] Medical History A-fib CAD (coronary artery disease) Cardiomyopathy CHF (congestive heart failure) Cirrhosis Depression Diabetes ETOH abuse HTN (hypertension) Functional capacity: uses cane/walker Family history: reviewed and not pertinent Social History Household Members: None Housing: Apartment Do you presently have visiting nurse or other home services: No Alcohol intake: current Alcohol intake frequency: 3 or more drinks per day Alcohol type: beer Smoking Status: Never smoker Use of substances other than those prescribed or required for medical reasons: No Have you been hit, kicked, punched, or otherwise hurt by someone within the past year? If so, by whom?: No Do you feel safe in your current relationship?: No Current Relationship Is there a partner from a previous relationship who is making you feel unsafe now?: No Are you made to feel afraid or neglected: No Advance Directives: No Advance Directives Information Provided: No Do you have thoughts of harming others: None Do you have a plan to hurt others: No Plan Recently lost weight without trying: No service: No Current occupational status: unemployed Meds Allergies Allergy/AdvReac Type Severity Reaction Status Date / Time Penicillins [PCN] Allergy Unknown UNKNOWN Verified 08/18/20 05:19 Active Medications: Current Medications Generic Name Dose Route Start Last Admin Trade Name Kumarq PRN Reason Stop Dose Admin Diltiazem HCl 125 mg/ Sodium 125 mls @ 0 mls/hr 08/18/20 10:30 08/18/20 10:37 Chloride IVCONT 10 mg/hr .Q0M FRANKY 10 mls/hr Administration Protocol Per Protocol Lactated Ringer's 1,000 mls @ 80 mls/hr 08/18/20 13:12 Lr IVCONT 08/19/20 01:41 .[id number] ONE Insulin Human Lispro 0 unit 08/18/20 16:30 Insulin Lispro 100 Unit/Ml 3 Ml Vial SUBCUT QIDACHS [facility] Protocol Pharmacy Consult 1 each 08/18/20 12:08 Consult Rx Perform Med Rec MISCELLANE ONCE PRN Consult order Pharmacy Consult 1 each 08/18/20 13:12 Consult Rx Etoh Phenob Dosing MISCELLANE 08/18/20 13:13 ONCE ONE Protocol Home Medications Medication Instructions Recorded Confirmed Last Taken Type aspirin 81 mg PO DAILY 01/22/20 08/18/20 Unknown History atorvastatin 40 mg PO BEDTIME 01/22/20 08/18/20 Unknown History furosemide 40 mg PO BID 01/22/20 08/18/20 Unknown History metoprolol succinate 50 mg PO DAILY 01/22/20 08/18/20 Unknown History multivitamin [One Daily 1 tab PO DAILY 01/22/20 08/18/20 Unknown History Multivitamin] spironolactone 25 mg PO DAILY 01/22/20 08/18/20 Unknown History thiamine HCl (vitamin B1) 100 mg PO DAILY 01/22/20 08/18/20 Unknown History fluoxetine 20 mg PO DAILY 05/02/20 08/18/20 Unknown History tamsulosin 0.4 mg PO DAILY 05/02/20 08/18/20 Unknown History acamprosate 666 mg PO TID 08/18/20 08/18/20 Unknown History ammonium lactate 1 appl TOPICAL BID 08/18/20 08/18/20 Unknown History apixaban 5 mg PO BID 08/18/20 08/18/20 Unknown History cholecalciferol (vitamin D3) 50 mcg PO DAILY 08/18/20 08/18/20 Unknown History folic acid 1 mg PO DAILY 08/18/20 08/18/20 Unknown History gabapentin 1 cap PO TID 08/18/20 08/18/20 Unknown History insulin glargine [Lantus Solostar 6 unit SUBCUT QAM 08/18/20 08/18/20 Unknown History U-100 Insulin] magnesium chloride [Slow-Mag] 71.5 mg PO DAILY 08/18/20 08/18/20 Unknown History metformin 1 tab PO BID 08/18/20 08/18/20 Unknown History terbinafine HCl 1 appl TOPICAL BID 08/18/20 08/18/20 Unknown History trazodone 1 tab PO BEDTIME 08/18/20 08/18/20 Unknown History Physical Exam Vital Signs and Narrative: Vital Signs: Last Vital Signs Temp 98.7 F 08/18/20 10:34 Pulse 113 H 08/18/20 11:18 Resp 15 08/18/20 11:18 BP 141/81 H 08/18/20 11:18 Pulse Ox 96 08/18/20 11:18 Body Mass Index 37.7 Const: General: no acute distress and alert Nutritional Appearance: overweight HENMT: Head: Yes normocephalic and Yes atraumatic Eyes: Sclerae: sclerae normal Chest: Chest palpation & inspection: normal inspection of the chest Resp: Effort & Inspection: normal respiratory effort and no respiratory distress Cardio: Rate: tachycardic Rhythm: abnormal rhythm (irregular) GI: Palpation (GI): Soft to palpation and nontender Skin: Other: chronic venous stasis changes b/l lower extremities. no erythema. what appears to be 2 puncture abrams on right forearm (pt doesn't know what happened) no surrounding erythema, no induration or fluctuance. Neuro: Cranial nerves: Yes CN's II-XII intact bilaterally and Yes Bilaterally intact EOM present Extrem: General: Yes normal to inspection Results Labs CBC and Chem 7: 08/18/20 06:31 08/18/20 10:29 Labs: Laboratory Results - last 24 hr 08/18/20 08/18/20 08/18/20 05:48 06:31 06:31 MCV 92.3 MCH 30.7 MCHC 33.2 RDW 13.7 Plt Count 146 L D MPV 10.3 Immature Gran % (Auto) 0.6 H Neut % (Auto) 77.3 H Lymph % (Auto) 13.7 L [place] % (Auto) 8.1 Eos % (Auto) 0.1 Baso % (Auto) 0.2 Lymph # (Auto) 1.2 [place] # (Auto) 0.7 Eos # (Auto) 0.0 Baso # (Auto) 0.0 Abs Immat Gran (auto) 0.05 H Absolute Neuts (auto) 6.7 Absolute Nucleated RBC 0.000 Nucleated RBC % (auto) 0.0 PT INR VBG pH VBG pCO2 VBG pO2 VBG HCO3 VBG O2 Saturation VBG Base Excess Anion Gap 27 H Estim Creat Clear Calc 132.9 Estimated GFR > 60 Random Glucose 199 H Osmolality Calcium 9.0 D Magnesium 1.3 L* Total Bilirubin 1.2 H Direct Bilirubin 0.5 AST 46 H ALT 26 Alkaline Phosphatase 103 Troponin I High Sens B-Natriuretic Peptide Total Protein 7.8 Albumin 3.9 Urine Color Urine Appearance Urine pH Ur Specific [place] Urine Protein Urine Glucose (UA) Urine Ketones Urine Blood Urine Nitrite Ur Leukocyte Esterase Urine RBC Urine WBC Ur Squamous Epith Cells Urine Bacteria Urine Opiates Screen Ur Barbiturates Screen Ur Phencyclidine Scrn Ur Amphetamines Screen U Benzodiazepines Scrn Urine Cocaine Screen U Marijuana (THC) Screen Ethyl Alcohol Coronavirus (PCR) COVID-19 ([facility]) COVID-19 Clin Com Influenza Type A (PCR) Influenza Type B (PCR) RSV RNA Qual (PCR) 08/18/20 08/18/20 08/18/20 06:31 06:31 06:31 MCV MCH MCHC RDW Plt Count MPV Immature Gran % (Auto) Neut % (Auto) Lymph % (Auto) [place] % (Auto) Eos % (Auto) Baso % (Auto) Lymph # (Auto) [place] # (Auto) Eos # (Auto) Baso # (Auto) Abs Immat Gran (auto) Absolute Neuts (auto) Absolute Nucleated RBC Nucleated RBC % (auto) PT 14.7 H INR 1.2 H VBG pH VBG pCO2 VBG pO2 VBG HCO3 VBG O2 Saturation VBG Base Excess Anion Gap Estim Creat Clear Calc Estimated GFR Random Glucose Osmolality Calcium Magnesium Total Bilirubin Direct Bilirubin AST ALT Alkaline Phosphatase Troponin I High Sens 34.0 B-Natriuretic Peptide 99 Cancelled Total Protein Albumin Urine Color Urine Appearance Urine pH Ur Specific [place] Urine Protein Urine Glucose (UA) Urine Ketones Urine Blood Urine Nitrite Ur Leukocyte Esterase Urine RBC Urine WBC Ur Squamous Epith Cells Urine Bacteria Urine Opiates Screen Ur Barbiturates Screen Ur Phencyclidine Scrn Ur Amphetamines Screen U Benzodiazepines Scrn Urine Cocaine Screen U Marijuana (THC) Screen Ethyl Alcohol Coronavirus (PCR) COVID-19 ([facility]) COVID-19 Clin Com Influenza Type A (PCR) Influenza Type B (PCR) RSV RNA Qual (PCR) 08/18/20 08/18/20 08/18/20 06:31 07:16 07:16 MCV MCH MCHC RDW Plt Count MPV Immature Gran % (Auto) Neut % (Auto) Lymph % (Auto) [place] % (Auto) Eos % (Auto) Baso % (Auto) Lymph # (Auto) [place] # (Auto) Eos # (Auto) Baso # (Auto) Abs Immat Gran (auto) Absolute Neuts (auto) Absolute Nucleated RBC Nucleated RBC % (auto) PT INR VBG pH VBG pCO2 VBG pO2 VBG HCO3 VBG O2 Saturation VBG Base Excess Anion Gap Estim Creat Clear Calc Estimated GFR Random Glucose Osmolality Calcium Magnesium Total Bilirubin Direct Bilirubin AST ALT Alkaline Phosphatase Troponin I High Sens B-Natriuretic Peptide Total Protein Albumin Urine Color Urine Appearance Urine pH Ur Specific [place] Urine Protein Urine Glucose (UA) Urine Ketones Urine Blood Urine Nitrite Ur Leukocyte Esterase Urine RBC Urine WBC Ur Squamous Epith Cells Urine Bacteria Urine Opiates Screen Ur Barbiturates Screen Ur Phencyclidine Scrn Ur Amphetamines Screen U Benzodiazepines Scrn Urine Cocaine Screen U Marijuana (THC) Screen Ethyl Alcohol 174 Coronavirus (PCR) POSITIVE A COVID-19 ([facility]) Positive A COVID-19 Clin Com See Note Influenza Type A (PCR) NEGATIVE Influenza Type B (PCR) NEGATIVE RSV RNA Qual (PCR) NEGATIVE 08/18/20 08/18/20 08/18/20 07:35 07:42 08:24 MCV MCH MCHC RDW Plt Count MPV Immature Gran % (Auto) Neut % (Auto) Lymph % (Auto) [place] % (Auto) Eos % (Auto) Baso % (Auto) Lymph # (Auto) [place] # (Auto) Eos # (Auto) Baso # (Auto) Abs Immat Gran (auto) Absolute Neuts (auto) Absolute Nucleated RBC Nucleated RBC % (auto) PT INR VBG pH 7.38 VBG pCO2 27 VBG pO2 87 VBG HCO3 16 L VBG O2 Saturation 96.0 VBG Base Excess -6.9 Anion Gap Estim Creat Clear Calc Estimated GFR Random Glucose Osmolality 316 H Calcium Magnesium Total Bilirubin Direct Bilirubin AST ALT Alkaline Phosphatase Troponin I High Sens B-Natriuretic Peptide Total Protein Albumin Urine Color YELLOW Urine Appearance CLEAR Urine pH 5.5 Ur Specific [place] 1.010 Urine Protein 2+ H Urine Glucose (UA) 100 H Urine Ketones NEG Urine Blood 2+ H Urine Nitrite NEG Ur Leukocyte Esterase NEG Urine RBC 5-9 H Urine WBC 0 Ur Squamous Epith Cells NONE Urine Bacteria NONE Urine Opiates Screen Ur Barbiturates Screen Ur Phencyclidine Scrn Ur Amphetamines Screen U Benzodiazepines Scrn Urine Cocaine Screen U Marijuana (THC) Screen Ethyl Alcohol Coronavirus (PCR) COVID-19 ([facility]) COVID-19 Clin Com Influenza Type A (PCR) Influenza Type B (PCR) RSV RNA Qual (PCR) 08/18/20 08/18/20 08:24 10:29 MCV MCH MCHC RDW Plt Count MPV Immature Gran % (Auto) Neut % (Auto) Lymph % (Auto) [place] % (Auto) Eos % (Auto) Baso % (Auto) Lymph # (Auto) [place] # (Auto) Eos # (Auto) Baso # (Auto) Abs Immat Gran (auto) Absolute Neuts (auto) Absolute Nucleated RBC Nucleated RBC % (auto) PT INR VBG pH VBG pCO2 VBG pO2 VBG HCO3 VBG O2 Saturation VBG Base Excess Anion Gap 21 H Estim Creat Clear Calc 144.3 Estimated GFR > 60 Random Glucose 217 H Osmolality Calcium 9.2 Magnesium Total Bilirubin Direct Bilirubin AST ALT Alkaline Phosphatase Troponin I High Sens B-Natriuretic Peptide Total Protein Albumin Urine Color Urine Appearance Urine pH Ur Specific [place] Urine Protein Urine Glucose (UA) Urine Ketones Urine Blood Urine Nitrite Ur Leukocyte Esterase Urine RBC Urine WBC Ur Squamous Epith Cells Urine Bacteria Urine Opiates Screen Not Detected Ur Barbiturates Screen Not Detected Ur Phencyclidine Scrn Not Detected Ur Amphetamines Screen Not Detected U Benzodiazepines Scrn Not Detected Urine Cocaine Screen Not Detected U Marijuana (THC) Screen Not Detected Ethyl Alcohol Coronavirus (PCR) COVID-19 ([facility]) COVID-19 Clin Com Influenza Type A (PCR) Influenza Type B (PCR) RSV RNA Qual (PCR) Imaging Radiologist's Impressions: Impressions Chest X-Ray 08/18/20 05:23 IMPRESSION: Increased bronchial wall thickening with patchy opacities. Considerations include development of edema versus a small airways process such as atypical/viral infection. Head CT 08/18/20 05:25 IMPRESSION: Scalp swelling right posterior parietal region without underlying fracture. No intracranial hemorrhage. Assessment and Plan (1) Atrial fibrillation, rapid: Status: Acute This is a 59-year-old male with history of alcohol abuse, diabetes, HFrEF (EF 10-15%) atrial fibrillation alcoholic liver cirrhosis was brought to the emergency department secondary to alcohol intoxication found to be in rapid atrial fibrillation AFib with rapid ventricular response Improved on Cardizem drip, will give Lopressor q.6h, wean cardizem drip eliquis on med rec, although ?not picked up since 2019. previous documents indicate pt not on ac due to daily etoh use. given etoh and fall will hold off of AC at this time. COVID-19 No hypoxia Supportive care Alcohol dependence with risk for withdrawal -will start phenobarbital -care team eval prior to d/c -continue thiamine, folic acid, mag replacement fall likely due to intoxication has had falls in past due to same. -tele monitor, although fall likely mechanical HFrEF EF from 2020 was 10-15% -continue lasix, spironolactone, metoprolol DM -hold metformin -SSI, POCs, ada diet Thrombocytopenia chronic. r/t liver disease CAD continue ASA, metoprolol, statin HLD continue statin mood continue fluoxetine bph -continue flomax chronic venous stasis changes -continue ammonium lactate cream dvt ppx - mechanical devices code status - full code Attending Dr. Harman
--- NOTE | 2020-08-18 14:14 | PC.NURSE ---
message sent to Aimee JAVIER, patient HR 80s-90s, ? shut off Cardizem drip. when PO meds are ordered drip can be shut off. will wait for order.
[2020-08-18] MEDS: PHENobarbitaL sodium 130 MG/ML VIAL 226 MG IM (15:02)
[2020-08-18] MEDS: Metoprolol Tartrate 25 MG TABLET PO ×2 (15:03→20:38)
[2020-08-18 16:08] LABS: Glucose, Whole Blood 230 mg/dL (60-115)
[2020-08-18] MEDS: Insulin Lispro 100 UNIT/ML 3 ML VIAL SUBCUT ×2 (17:26→20:39)
[2020-08-18] MEDS: PHENobarbitaL sodium 130 MG/ML VIAL 170 MG IM ×2 (18:34→20:37)
[2020-08-18] MEDS: 0.9 % Sodium Chloride Flush 3 ML SYRINGE IVFLUSH (18:35)
[2020-08-18 20:20] LABS: Glucose, Whole Blood 204 mg/dL (60-115)
[2020-08-18] MEDS: Ammonium Lactate 12 % Cream 140 GM TUBE 1 APPL TOPICAL (20:37)
[2020-08-18] MEDS: Magnesium Oxide 400 MG TABLET 800 MG PO (20:37)
[2020-08-18] MEDS: traZODone HCL 50 MG TABLET PO (20:37)
[2020-08-18] MEDS: Atorvastatin Calcium 40 MG TABLET PO (20:38)
[2020-08-18] MEDS: Furosemide 40 MG TABLET PO (20:38)
[2020-08-18] MEDS: Gabapentin 400 MG CAPSULE PO (20:38)
[2020-08-19] VITALS (10 sets, daily range): BP systolic 134–145; BP diastolic 60–87; PULSE 70–91; RESP 15–20; TEMP 36.2–37.1; O2SAT 95–98
[2020-08-19] MEDS: 0.9 % Sodium Chloride Flush 3 ML SYRINGE IVFLUSH ×3 (00:14→15:58)
[2020-08-19] MEDS: Metoprolol Tartrate 25 MG TABLET PO ×4 (02:54→20:48)
[2020-08-19 06:27] LABS: MANUAL DIFF FLAG NO
[2020-08-19 06:54] LABS: Basophils Percent Auto 0.3 % (0-2); Eosinophils Absolute Auto 0.1 X10*3/uL (0.0-0.4); Eosinophils Percent Auto 0.9 % (0-4); Hematocrit 34.1 % (42-52); Hemoglobin 11.5 g/dl (14.0-18.0); Imm Gran Abs Auto 0.03 X10*3/uL (0.00-0.03); Imm Gran Pct Auto 0.4 % (0.0-0.4); Lymphocytes Percent Auto 13.6 % (20-40); Mean Corpuscular HGB Conc 33.7 g/dl (31.0-36.0); Mean Corpuscular Hemoglobin 30.8 pg (27.0-33.0); Mean Corpuscular Volume 91.4 fL (80-98); Mean Platelet Volume 11.2 fL (9.4-12.4); Monocytes Absolute Auto 0.6 X10*3/uL (0.1-1.2); Neutrophils Absolute Auto 5.3 X10*3/uL (2.0-8.3); Neutrophils Percent Auto 75.8 % (45-73); Platelet Count 127 X10*3/uL (160-400); Red Blood Count 3.73 X10*6/uL (4.60-5.80); Red Cell Distribution Width 13.9 % (11.0-16.0)
[2020-08-19 07:20] LABS: Anion Gap 15 (12-20); Blood Urea Nitrogen 11 mg/dL (9-16); Calcium 8.9 mg/dL (8.4-10.2); Carbon Dioxide 23 mmol/L (22-29); Chloride 100 mmol/L (96-108); Creatinine Clr Calc Pharmacy 148.2; Estimated Glomerular Filt Rate > 60; Glucose Random 191 mg/dL (60-115); Magnesium 1.7 mg/dL (1.6-2.6); Potassium 3.6 mmol/L (3.3-5.1); Sodium 134 mmol/L (135-145)
[2020-08-19 07:21] LABS: Glucose, Whole Blood 190 mg/dL (60-115)
[2020-08-19] MEDS: Insulin Glargine,Hum.rec.anlog 100 UNIT/ML 10 ML VIAL 6 UNIT SUBCUT (08:06)
[2020-08-19] MEDS: Insulin Lispro 100 UNIT/ML 3 ML VIAL SUBCUT ×3 (08:07→20:46)
[2020-08-19] MEDS: Spironolactone 25 MG TABLET PO (08:08)
[2020-08-19] MEDS: Multivitamin TABLET 1 TAB PO (08:08)
[2020-08-19] MEDS: FLUoxetine HCl 20 MG CAPSULE PO (08:08)
[2020-08-19] MEDS: Gabapentin 400 MG CAPSULE PO ×3 (08:09→20:47)
[2020-08-19] MEDS: Furosemide 40 MG TABLET PO ×2 (08:09→20:47)
[2020-08-19] MEDS: Magnesium Oxide 400 MG TABLET 800 MG PO ×2 (08:09→20:47)
[2020-08-19] MEDS: Cholecalciferol (Vitamin D3) 25 MCG TABLET 50 MCG PO (08:09)
[2020-08-19] MEDS: Ammonium Lactate 12 % Cream 140 GM TUBE 1 APPL TOPICAL ×2 (08:10→20:48)
[2020-08-19] MEDS: Thiamine HCL 100 MG TABLET PO (08:10)
[2020-08-19] MEDS: Folic Acid 1 MG TABLET PO (08:10)
[2020-08-19] MEDS: Aspirin Enteric Coated 81 MG TABLET.DR PO (08:10)
[2020-08-19] MEDS: PHENobarbitaL 15 MG TABLET 45 MG PO ×2 (08:10→20:47)
--- NOTE | 2020-08-19 08:53 | MHC.CM.PN ---
Patient is Covid (+), his cell phone cannot accept calls at this time, Patient does not answer room phone, and he has no contacts listed. Per RN & chart review, there is a question if Patient is homeless; he has no listed PCP and no HCP. There is a cane in the room. DC plan appears to be home no services VS possible Care Team intervention r/t ETOH. CM has initiated and will follow for dc planning.RN has provided Patient with the original IMM and a copy has been placed on the chart.
--- NOTE | 2020-08-19 10:02 | MHC.CM.PN ---
Per RN, Patient is not homeless; he rents a room in [place] and lives alone.
--- NOTE | 2020-08-19 11:31 | MHC.RECOVSUP ---
Recovery Support note: Patient is a 59 year old [place]ijani speaking male who presented to [facility] ED via EMS after a fall while intoxicated. This underwriter and a [facility] electroless plater met with patient to discuss his alcohol use and treatment options. Patient minimized alcohol use to this underwriter. Patient reports he does not have a problem with his drinking and that he is already cutting down on how much he drinks. Discussed the negative effects of repeated alcohol use on overall health and patient acknowledged. Patient reports he does not need additional supports as he feels he will be able to reduce his drinking on his own. Explained to patient that while he feels he can do it on his own now, it may prove to be more difficult than he is anticipating and that there is help available to support him in his recovery. Patient acknowledged. Provided patient with information on [facility] [place] and educated him on the groups that they have in [place]. Due to patient having COVID, he is not eligible for inpatient recovery programs after discharge. Discussed case with patient's RN and CM.
[2020-08-19 11:35] LABS: Glucose, Whole Blood 232 mg/dL (60-115)
[2020-08-19] MEDS: Acetaminophen 325 MG TABLET 650 MG PO (11:56)
--- NOTE | 2020-08-19 12:47 | P.DS_ITS ---
DS: Providers Provider Date of Service: 08/22/20 Date of admission: 08/18/20 13:12 Primary care physician: Unknown Physician Consults: 08/18/20 14:49 Consult to Care Team Routine Comment: Reason for consultation: etoh DS: Diagnosis Discharge Diagnosis (1) Atrial fibrillation, rapid: Status: Acute DS: Medications Discharge Medications Home Medications: Home Medications Medication Instructions Recorded Confirmed aspirin 81 mg PO DAILY 01/22/20 08/18/20 atorvastatin 40 mg PO BEDTIME 01/22/20 08/18/20 furosemide 40 mg PO BID 01/22/20 08/18/20 metoprolol succinate 50 mg PO DAILY 01/22/20 08/18/20 multivitamin [One Daily 1 tab PO DAILY 01/22/20 08/18/20 Multivitamin] spironolactone 25 mg PO DAILY 01/22/20 08/18/20 thiamine HCl (vitamin B1) 100 mg PO DAILY 01/22/20 08/18/20 fluoxetine 20 mg PO DAILY 05/02/20 08/18/20 tamsulosin 0.4 mg PO DAILY 05/02/20 08/18/20 Lantus Solostar U-100 Insulin 6 unit SUBCUT QAM 08/18/20 08/18/20 Slow-Mag 71.5 mg PO DAILY 08/18/20 08/18/20 acamprosate 666 mg PO TID 08/18/20 08/18/20 ammonium lactate 1 appl TOPICAL BID 08/18/20 08/18/20 apixaban 5 mg PO BID 08/18/20 08/18/20 cholecalciferol (vitamin D3) 50 mcg PO DAILY 08/18/20 08/18/20 folic acid 1 mg PO DAILY 08/18/20 08/18/20 gabapentin 1 cap PO TID 08/18/20 08/18/20 metformin 1 tab PO BID 08/18/20 08/18/20 terbinafine HCl 1 appl TOPICAL BID 08/18/20 08/18/20 trazodone 1 tab PO BEDTIME 08/18/20 08/18/20 Previous Rx's Medication Instructions Recorded magnesium oxide 800 mg PO BID #20 tab 05/05/20 dexamethasone [Decadron] 6 mg PO DAILY #9 tab 08/19/20 DS: Summary Hospital Course Hospital Course: 51-year-old male with history of atrial fibrillation, cardiomyopathy, a cirrhosis coronary artery disease hypertension chronic alcohol dependency who was seen in the emergency room high due to alcoholic dependence here was noted to have a COVID-19 however there was not asymptomatic he was however noted to be in atrial fibrillation rapid response and has to be initiated on IV Cardizem drip he does have history of AFib and the compliance is in question. Patient was admitted and given IV Cardizem and his heart rate rapidly came down and was put back on his oral medication and seemed to be doing well in regard to chronic alcohol dependency he was evaluated by the care team and our he was not interested in any treatment options at this point although he is saying that he will be compliant with medication and the drink last. He is advised to continue all his medication he says that he does have his medication at home for COVID he is asymptomatic oxygen saturation is within normal however will be treated with up dexamethasone and also is advised to stay with from others and diabetes in isolation for the next 14 days or. Cdc guidelines. Time Spent with Patient Time attestation: Total time spent providing and/or coordinating discharge services: Discharge coordination time: Greater than 30 minutes Physical Exam Vital Signs: Vital Signs: Last Vital Signs Temp 97.8 F 08/19/20 11:40 Pulse 89 08/19/20 11:40 Resp 18 08/19/20 11:40 BP 136/60 08/19/20 11:40 Pulse Ox 98 08/19/20 11:40 Body Mass Index 36.4 DS: Data Data Completed and Pending Completed studies during hospitalization [Text1]: Procedures Detoxification Services for Substance Abuse Treatment (05/02/20) Labs on day of discharge: Laboratory Results - last 24 hr 08/18/20 08/18/20 08/19/20 16:04 20:13 05:41 WBC 7.0 RBC 3.73 L Hgb 11.5 L Hct 34.1 L MCV 91.4 MCH 30.8 MCHC 33.7 RDW 13.9 Plt Count 127 L MPV 11.2 Immature Gran % (Auto) 0.4 Neut % (Auto) 75.8 H Lymph % (Auto) 13.6 L Bennett % (Auto) 9.0 Eos % (Auto) 0.9 Baso % (Auto) 0.3 Lymph # (Auto) 1.0 L Bennett # (Auto) 0.6 Eos # (Auto) 0.1 Baso # (Auto) 0.0 Abs Immat Gran (auto) 0.03 Absolute Neuts (auto) 5.3 Absolute Nucleated RBC 0.000 Nucleated RBC % (auto) 0.0 Sodium Potassium Chloride Carbon Dioxide Anion Gap BUN Creatinine Estim Creat Clear Calc Estimated GFR POC Glucose 230 H 204 H Random Glucose Calcium Magnesium 08/19/20 08/19/20 08/19/20 05:41 07:18 11:32 WBC RBC Hgb Hct MCV MCH MCHC RDW Plt Count MPV Immature Gran % (Auto) Neut % (Auto) Lymph % (Auto) Bennett % (Auto) Eos % (Auto) Baso % (Auto) Lymph # (Auto) Bennett # (Auto) Eos # (Auto) Baso # (Auto) Abs Immat Gran (auto) Absolute Neuts (auto) Absolute Nucleated RBC Nucleated RBC % (auto) Sodium 134 L Potassium 3.6 Chloride 100 Carbon Dioxide 23 Anion Gap 15 BUN 11 D Creatinine 0.67 Estim Creat Clear Calc 148.2 Estimated GFR > 60 POC Glucose 190 H 232 H Random Glucose 191 H Calcium 8.9 Magnesium 1.7 Discharge Plan Discharge Anticipated Discharge Date/Time: 08/20/20 12:25 Patient Disposition: Home, Self-Care Discharge Diagnosis: AFIB and covid Referrals: Physician,Unknown [Primary Care Provider] - 1 Week Discharge Medications: New dexamethasone [Decadron] 6 mg tablet 6 mg PO DAILY Qty: 9 RF: 0 Continued tamsulosin 0.4 mg Capsule 0.4 mg PO DAILY RF: 0 fluoxetine 20 mg Capsule 20 mg PO DAILY RF: 0 magnesium oxide 400 mg (241.3 mg magnesium) tablet 800 mg PO BID Qty: 20 RF: 0 trazodone 50 mg tablet 1 tab PO BEDTIME RF: 0 gabapentin 400 mg capsule 1 cap PO TID RF: 0 metformin 1,000 mg tablet 1 tab PO BID RF: 0 Lantus Solostar U-100 Insulin 100 unit/mL (3 mL) insulin pen 6 unit subcut QAM RF: 0 terbinafine HCl 1 % Cream 1 appl TOPICAL BID RF: 0 cholecalciferol (vitamin D3) 50 mcg (2,000 unit) Tablet 50 mcg PO DAILY RF: 0 ammonium lactate 12 % cream 1 appl topical BID RF: 0 acamprosate 333 mg Tablet,Delayed Release (Dr/Ec) 666 mg PO TID RF: 0 apixaban 5 mg Tablet 5 mg PO BID RF: 0 folic acid 1 mg Tablet 1 mg PO DAILY RF: 0 Slow-Mag 71.5 mg Tablet,Delayed Release (Dr/Ec) 71.5 mg PO DAILY RF: 0 multivitamin [One Daily Multivitamin] Tablet 1 tab PO DAILY RF: 0 furosemide 40 mg tablet 40 mg PO BID RF: 0 atorvastatin 40 mg tablet 40 mg PO BEDTIME RF: 0 metoprolol succinate 50 mg tablet extended release 24 hr 50 mg PO DAILY RF: 0 thiamine HCl (vitamin B1) 100 mg tablet 100 mg PO DAILY RF: 0 aspirin 81 mg tablet,delayed release (DR/EC) 81 mg PO DAILY RF: 0 spironolactone 25 mg tablet 25 mg PO DAILY RF: 0 Discharge Orders: Discharge Order (Routine); Ordered 08/19/20 Ordered By: Woo Johnson Diet: advance to usual diet Activity on Discharge: As tolerated Stand Alone Forms: Patient Portal Discharge page Care Plan Goals: Prevent rehospitalization for atrial fibrillation Health Concerns: Chronic alcohol dependency, atrial fibrillation. Plan of Treatment: Take all your medication as directed avoid drinking alcohol in excess. Follow-u p solution protocols CDC Guidelines for home isolation: - Stay away from others - Limit contact with pets and animals: If you must care for a pet, wash your hands before and after interacting with them - Wear a mask if you are sick - Cover your mouth and nose with a tissue when you cough or sneeze. Dispose of tissues in a lined trash can and wash your hands immediately with soap and water for at least 20 seconds. If soap and water are not available, clean hands with alcohol-based hand asbestos brake lining finisher that contains at least 60% alcohol. - Clean your hands often with soap and water for at least 20 seconds - Avoid touching your eyes, nose and mouth with unwashed hands - Do not share dishes, drinking glasses, cups, eating utensils, towels, or bedding with other people in your home. After using these items, wash them thoroughly with soap and water or put in the delicatessen goods stock clerk. - Clean high-touch surfaces in your isolation area (?sick room? and bathroom) every day; let a caregiver clean and disinfect high-touch surfaces in other areas of the home. Clean the area or item with soap and water or another detergent if it is dirty. Then, use a household disinfectant. Seek medical attention, but call first: - Seek medical care right away if your illness is worsening (for example, if you have difficulty breathing). - Call your doctor before going in: Before going to the doctor?s office or emergency room, call ahead and tell them your symptoms. They will tell you what to do. - If possible, put on a facemask before you enter the building. If you can?t put on a facemask, try to keep a safe distance from other people (at least 6 feet away). This will help protect the people in the office or waiting room. - Follow care instructions from your healthcare provider and local health department: Your local health authorities will give instructions on checking your symptoms and reporting information. Emergency warning signs for COVID-19: - Difficulty breathing or shortness of breath - Persistent pain or pressure in the chest - New confusion or inability to arouse - Bluish lips or face Additional Instructions: - [] Assessment: Alcohol dependency, atrial fibrillation, noncompliance with medication. Discharge Date/Time: 08/20/20 14:37
--- NOTE | 2020-08-19 12:52 | MHC.CM.PN ---
Patient has been medically cleared for dc to home, no services. IMM addressed this morning.
[2020-08-19 16:21] LABS: Glucose, Whole Blood 173 mg/dL (60-115)
--- NOTE | 2020-08-19 18:55 | P.PNIM_ITS ---
Subjective Subjective Date of Service: 08/19/20 Interval History: Seen in f/u for afib. No RVR, no covid symptoms Review of Systems Gen: no fever Resp: no sob, no cough CV: no chest, no BAUM, no leg edema GI: No n/v, no abd pain Neuro: No confusion Physical Exam Vital Signs: Vital Signs: Last Vital Signs Temp 97.8 F 08/19/20 15:53 Pulse 88 08/19/20 15:57 Resp 18 08/19/20 15:53 BP 145/76 H 08/19/20 15:57 Pulse Ox 98 08/19/20 15:53 Body Mass Index 36.4 General: AO X 3, no acute distress Resp: CTA bilateral CVS: S1,S2,RRR GI: +BS, NT, no distention Skin: No rash Neuro: motor grossly intact Psych: appropriate affect Objective Data Current Medications Generic Name Dose Route Start Last Admin Trade Name Freq PRN Reason Stop Dose Admin Acetaminophen 650 mg 08/18/20 14:49 08/19/20 11:56 Acetaminophen 325 Mg Tablet PO 650 mg Q6H PRN Administration Pain, Mild (Pain Scale 1-3) Aspirin 81 mg 08/19/20 09:00 08/19/20 08:10 Aspirin Enteric Coated 81 Mg Tablet.Dr PO 81 mg DAILY FRANKY Administration Atorvastatin Calcium 40 mg 08/18/20 21:00 08/18/20 20:38 Atorvastatin Calcium 40 Mg Tablet PO 40 mg BEDTIME FRANKY Administration Docusate Sodium 100 mg 08/18/20 14:49 Docusate Sodium 100 Mg Capsule PO DAILY PRN Constipation Fluoxetine HCl 20 mg 08/19/20 09:00 08/19/20 08:08 Fluoxetine Hcl 20 Mg Capsule PO 20 mg DAILY FRANKY Administration Folic Acid 1 mg 08/19/20 09:00 08/19/20 08:10 Folic Acid 1 Mg Tablet PO 1 mg DAILY FRANKY Administration Furosemide 40 mg 08/18/20 21:00 08/19/20 08:09 Furosemide 40 Mg Tablet PO 40 mg BID FRANKY Administration Protocol Gabapentin 400 mg 08/18/20 15:00 08/19/20 15:58 Gabapentin 400 Mg Capsule PO 400 mg TID FRANKY Administration Diltiazem HCl 125 mg/ Sodium 125 mls @ 0 mls/hr 08/18/20 10:30 08/18/20 15:03 Chloride IVCONT 0 mg/hr .Q0M [facility] 0 mls/hr Titration Protocol Per Protocol Insulin Glargine 6 unit 08/19/20 09:00 08/19/20 08:06 Insulin Glargine,Hum.Rec.Anlog 100 Unit/Ml 10 Ml Vial SUBCUT 6 unit DAILY [facility] Administration Insulin Human Lispro 0 unit 08/18/20 16:30 08/19/20 16:36 Insulin Lispro 100 Unit/Ml 3 Ml Vial SUBCUT Not Given QIDACHS [facility] Protocol Lactic Acid 1 appl 08/18/20 21:00 08/19/20 08:10 Ammonium Lactate 12 % Cream 140 Gm Tube TOPICAL 1 appl BID [facility] Administration Protocol Magnesium Oxide 800 mg 08/18/20 21:00 08/19/20 08:09 Magnesium Oxide 400 Mg Tablet PO 800 mg BID [facility] Administration Medication 1 each 08/18/20 13:19 No Benzodiazepines MISCELLANE DAILY [facility] Metoprolol Tartrate 25 mg 08/18/20 14:46 08/19/20 15:57 Metoprolol Tartrate 25 Mg Tablet PO 25 mg Q6H [facility] Administration Protocol Multivitamins/Vitamin C 1 tab 08/19/20 09:00 08/19/20 08:08 Multivitamin Tablet PO 1 tab DAILY [facility] Administration Pharmacy Consult 1 each 08/18/20 12:08 Consult Rx Perform Med Rec MISCELLANE ONCE PRN Consult order Phenobarbital 45 mg 08/19/20 09:00 08/19/20 08:10 Phenobarbital 15 Mg Tablet PO 08/20/20 21:01 45 mg BID [facility] Administration Protocol Phenobarbital 15 mg 08/21/20 09:00 Phenobarbital 15 Mg Tablet PO 08/22/20 21:01 BID [facility] Protocol Phenobarbital 15 mg 08/23/20 09:00 Phenobarbital 15 Mg Tablet PO 08/24/20 09:01 DAILY [facility] Protocol Sodium Chloride 3 ml 08/18/20 16:00 08/19/20 15:58 0.9 % Sodium Chloride Flush 3 Ml Syringe IVFLUSH 3 ml QSHIFT [facility] Administration Spironolactone 25 mg 08/19/20 09:00 08/19/20 08:08 Spironolactone 25 Mg Tablet PO 25 mg DAILY [facility] Administration Protocol Tamsulosin HCl 0.4 mg 08/19/20 17:30 Tamsulosin Hcl 0.4 Mg Capsule PO DAILY@1730 [facility] Thiamine HCl 100 mg 08/19/20 09:00 08/19/20 08:10 Thiamine Hcl 100 Mg Tablet PO 100 mg DAILY [facility] Administration Trazodone HCl 50 mg 08/18/20 21:00 08/18/20 20:37 Trazodone Hcl 50 Mg Tablet PO 50 mg BEDTIME [facility]ANKY Administration Vitamin D 50 mcg 08/19/20 09:00 08/19/20 08:09 Cholecalciferol (Vitamin D3) 25 Mcg Tablet PO 50 mcg DAILY FRANKY Administration Labs CBC & Chem 7: 08/19/20 05:41 08/19/20 05:41 Assessment and Plan (1) Atrial fibrillation, rapid: Status: Acute Assessment and Plan: This is a 59-year-old male with history of alcohol abuse, diabetes, HFrEF (EF 10-15%) atrial fibrillation alcoholic liver cirrhosis was brought to the emergency department secondary to alcohol intoxication found to be in rapid atrial fibrillation AFib, RVR resolved. continue Lopressor No OAC at this time COVID-19 No hypoxia Decadron Supportive care Alcohol dependence with risk for withdrawal -will start phenobarbital -care team eval prior to d/c -continue thiamine, folic acid, mag replacement fall likely due to intoxication has had falls in past due to same. -tele monitor, although fall likely mechanical HFrEF EF from 2019 was 10-15% -continue lasix, spironolactone, metoprolol DM -hold metformin -SSI, POCs, ada diet Thrombocytopenia chronic. r/t liver disease CAD continue ASA, metoprolol, statin HLD continue statin mood continue fluoxetine bph -continue flomax chronic venous stasis changes -continue ammonium lactate cream dvt ppx - mechanical devices code status - full cod dc tomorrow
[2020-08-19] MEDS: Tamsulosin HCL 0.4 MG CAPSULE PO (18:58)
[2020-08-19 20:39] LABS: Glucose, Whole Blood 172 mg/dL (60-115)
[2020-08-19] MEDS: traZODone HCL 50 MG TABLET PO (20:47)
[2020-08-19] MEDS: Atorvastatin Calcium 40 MG TABLET PO (20:48)
[2020-08-20] MEDS: 0.9 % Sodium Chloride Flush 3 ML SYRINGE IVFLUSH ×2 (00:15→08:23)
[2020-08-20 02:37] VITALS: BP 142/76; PULSE 82
[2020-08-20] MEDS: Metoprolol Tartrate 25 MG TABLET PO ×2 (02:37→08:24)
[2020-08-20 03:55] VITALS: BP 148/73; PULSE 96; RESP 18; TEMP 36.9; O2SAT 97
[2020-08-20 07:48] LABS: Glucose, Whole Blood 186 mg/dL (60-115)
[2020-08-20 07:55] VITALS: BP 138/80; PULSE 96; RESP 18; TEMP 37.1; O2SAT 98
[2020-08-20] MEDS: Insulin Lispro 100 UNIT/ML 3 ML VIAL SUBCUT (08:22)
[2020-08-20] MEDS: Folic Acid 1 MG TABLET PO (08:23)
[2020-08-20] MEDS: Insulin Glargine,Hum.rec.anlog 100 UNIT/ML 10 ML VIAL 6 UNIT SUBCUT (08:23)
[2020-08-20] MEDS: Aspirin Enteric Coated 81 MG TABLET.DR PO (08:23)
[2020-08-20] MEDS: FLUoxetine HCl 20 MG CAPSULE PO (08:23)
[2020-08-20] MEDS: Furosemide 40 MG TABLET PO (08:23)
[2020-08-20] MEDS: Thiamine HCL 100 MG TABLET PO (08:23)
[2020-08-20 08:24] VITALS: BP 138/80; PULSE 96
[2020-08-20] MEDS: PHENobarbitaL 15 MG TABLET 45 MG PO (08:24)
[2020-08-20] MEDS: Gabapentin 400 MG CAPSULE PO (08:24)
[2020-08-20] MEDS: Spironolactone 25 MG TABLET PO (08:24)
[2020-08-20] MEDS: Cholecalciferol (Vitamin D3) 25 MCG TABLET 50 MCG PO (08:24)
[2020-08-20] MEDS: Magnesium Oxide 400 MG TABLET 800 MG PO (08:25)
[2020-08-20] MEDS: Multivitamin TABLET 1 TAB PO (08:25)
[2020-08-20] MEDS: Ammonium Lactate 12 % Cream 140 GM TUBE 1 APPL TOPICAL (08:25)
--- NOTE | 2020-08-20 09:11 | MHC.CM.PN ---
Patient was not dc yesterday, but per MD, will be medically cleared for dc to home today, no services. IMM addressed yesterday.
[2020-08-20 11:34] VITALS: BP 139/82; PULSE 81; RESP 20; TEMP 36.9; O2SAT 96
[2020-08-20 12:10] LABS: Glucose, Whole Blood 154 mg/dL (60-115)
--- NOTE | 2020-08-20 13:04 | MHC.CM.PN ---
Patient will dc to home ([address] [place]- RN confirmed correct address with Patient)via [facility] (Covid (+) ) today at 2PM. RN is aware..
== END 2020-08-20 14:37 | disposition home or self-care (01) | DRG 308 ==
LOC: HO.ED 10:29 → HO.EDOVER 13:26 → HO.IMC 13:31
PROVIDERS: Emergency Medicine; Admitting Provider Physician Assistant Medical; Emergency Provider Emergency Medicine; Visit Provider Internal Medicine
DX: I48.91 Unspecified atrial fibrillation (principal); U07.1 COVID-19; I50.22 Chronic systolic (congestive) heart failure; I42.9 Cardiomyopathy, unspecified; F10.229 Alcohol dependence with intoxication, unspecified; I25.10 Atherosclerotic heart disease of native coronary artery without angina pectoris; N40.0 Benign prostatic hyperplasia without lower urinary tract symptoms; I87.8 Other specified disorders of veins; D69.6 Thrombocytopenia, unspecified; E78.5 Hyperlipidemia, unspecified; F39 Unspecified mood [affective] disorder; Z91.81 History of falling; Z88.0 Allergy status to penicillin; Z79.4 Long term (current) use of insulin; Z79.01 Long term (current) use of anticoagulants; Z79.82 Long term (current) use of aspirin; Z79.899 Other long term (current) drug therapy
CPT/HCPCS: 0241U; 36415; 70450; 71045; 80048; 80076; 80307; 80320; 81001; 82947; 83735; 83880; 83930; 84484; 85025; 85610; 87635; 93005; 96365; 96366; 96375; 99285; J1940; J2560; J3475

== ENCOUNTER 2020-08-24 14:48 | Emergency (ER) | payer MEDICARE, MEDICAID, SELFPAY ==
[2020-08-24] VITALS (8 sets, daily range): BP systolic 125–141; BP diastolic 77–90; PULSE 106–113; RESP 18–24; TEMP 36.5–36.8; O2SAT 92–100; BMI 38.4
--- NOTE | ~2020-08-24 | XR_ITS ---
EXAMINATION: XR CHEST CLINICAL INFORMATION: Intoxicated with positive culture COMPARISON: 08/18/2020 TECHNIQUE: Frontal view of the chest was obtained. FINDINGS: Again seen is cardiomegaly and diffuse bilateral patchy opacities. Differential diagnosis includes viral infection and possibly CHF. No pleural effusions are seen. XR/XR chest 1V IMPRESSION: The exam is unchanged with commonly reported imaging features of Covid 19 or viral pneumonia present with diffuse patchy ill-defined infiltrates. Other processes such as influenza pneumonia or organizing pneumonia, as can be seen with drug toxicity and connective tissue disease, can cause a similar imaging pattern. CHF would be less likely but possible.
--- NOTE | 2020-08-24 15:18 | ECG_ITS ---
Test Reason : TACHY Blood Pressure : / mmHG Vent. Rate : 122 BPM Atrial Rate : 150 BPM P-R Int : 000 ms QRS Dur : 094 ms QT Int : 318 ms P-R-T Axes : 000 -77 093 degrees QTc Int : 453 ms Atrial fibrillation with rapid ventricular response Left axis deviation Inferior infarct (cited on or before 02-JUL-2016) Anterior infarct (cited on or before 02-JUL-2016) Abnormal ECG When compared with ECG of 18-AUG-2020 05:21, No significant change was found Referred By: Julienne Crain Electronically Signed By:ADRIANA CORRAL
--- NOTE | 2020-08-24 15:56 | ED.GENADULT ---
HPI - General Adult General Chief complaint: ETOH/Substance Use Stated complaint: ETOH, COVID + Time Seen by Provider: 08/24/20 14:59 Source: patient and EMS Mode of arrival: EMS Limitations: language barrier (Divehi-speaking and poor historian intoxicated with EtOH) History of Present Illness HPI narrative: 59-year-old male with a past medical history of atrial fibrillation, coronary artery disease, cardiomyopathy, CHF, hypertension, diabetes, alcoholic liver cirrhosis, alcohol dependent, varicose veins of lower extremity with inflammation and recent diagnosis with COVID-19 on 08/18/2020 with recent admission for rapid AFib/COVID-19 no hypoxia/alcohol intoxication/fall and multiple other comorbidities on 08/18/2020 and discharge on 08/19/2020 presenting via EMS after a bystander called EMS due to patient stumbling into the road. Patient at this time is very intoxicated in hard to understand with slurred speech and EtOH on odor. Related Data Home Medications Medication Instructions Recorded Confirmed aspirin 81 mg PO DAILY 01/22/20 08/18/20 atorvastatin 40 mg PO BEDTIME 01/22/20 08/18/20 furosemide 40 mg PO BID 01/22/20 08/18/20 metoprolol succinate 50 mg PO DAILY 01/22/20 08/18/20 multivitamin [One Daily 1 tab PO DAILY 01/22/20 08/18/20 Multivitamin] spironolactone 25 mg PO DAILY 01/22/20 08/18/20 thiamine HCl (vitamin B1) 100 mg PO DAILY 01/22/20 08/18/20 fluoxetine 20 mg PO DAILY 05/02/20 08/18/20 tamsulosin 0.4 mg PO DAILY 05/02/20 08/18/20 Lantus Solostar U-100 Insulin 6 unit SUBCUT QAM 08/18/20 08/18/20 Slow-Mag 71.5 mg PO DAILY 08/18/20 08/18/20 acamprosate 666 mg PO TID 08/18/20 08/18/20 ammonium lactate 1 appl TOPICAL BID 08/18/20 08/18/20 apixaban 5 mg PO BID 08/18/20 08/18/20 cholecalciferol (vitamin D3) 50 mcg PO DAILY 08/18/20 08/18/20 folic acid 1 mg PO DAILY 08/18/20 08/18/20 gabapentin 1 cap PO TID 08/18/20 08/18/20 metformin 1 tab PO BID 08/18/20 08/18/20 terbinafine HCl 1 appl TOPICAL BID 08/18/20 08/18/20 trazodone 1 tab PO BEDTIME 08/18/20 08/18/20 Previous Rx's Medication Instructions Recorded magnesium oxide 800 mg PO BID #20 tab 05/05/20 dexamethasone [Decadron] 6 mg PO DAILY #9 tab 08/19/20 Allergies Allergy/AdvReac Type Severity Reaction Status Date / Time Penicillins [PCN] Allergy Unknown UNKNOWN Verified 08/24/20 15:20 Review of Systems Review of Systems: Constitutional : No Fever, No Chills ENT/Mouth : No Ear Pain, No Nasal Congestion, No sore throat Eyes: No Eye Pain, No Swelling, No Redness Cardiovascular : No Chest Pain, No SOB Respiratory : No Cough, No Sputum, No Dyspnea Gastrointestinal : No ingestions, No Nausea, No Vomiting, No Diarrhea, No Hematochezia, No Melena Genitourinary : No Dysuria, No Urinary Frequency, No Hematuria Musculoskeletal : No Myalgias Skin : No Skin Lesions, No rash Neuro : No Weakness, No Numbness, No Paresthesias, No Dizziness, No Headache Psych : No Anxiety, No Depression, No SI/HI, No AVH, No thoughts of self injury Heme/Lymph: No Lymphadenopathy Endocrine : No Polyuria, No Polydipsia Yes all other systems are reviewed and are negative [facility] Past Medical History Attestation statement: The following information was validated with the patient. Medical History A-fib CAD (coronary artery disease) Cardiomyopathy CHF (congestive heart failure) Cirrhosis Depression Diabetes ETOH abuse HTN (hypertension) Social History Social History Household Members: None Housing: Apartment Alcohol intake: current Alcohol intake frequency: 3 or more drinks per day Alcohol type: beer Smoking Status: Unknown if ever smoked Use of substances other than those prescribed or required for medical reasons: Unable to respond Advance Directives: No Advance Directives Information Provided: No service: No Current occupational status: unemployed Physical Exam Vital Signs: Vital Signs: Last Vital Signs Temp 97.8 F 08/24/20 15:20 Pulse 107 H 08/24/20 15:40 Resp 21 H 08/24/20 15:40 BP 131/85 08/24/20 15:40 Pulse Ox 100 08/24/20 15:40 Body Mass Index 38.4 vital signs have been reviewed as normal and appeared to be correct. Blood pressure normal. Heart rate tachycardic at 111. Respiration rate tachypneic at 22. Temperature normal. Oxygen saturation normal. Appearance: Intoxicated with EtOH on odor with slurred speech otherwise Alert. Oriented X3. No acute distress. Head: Normal external exam. Normocephalic. Atraumatic. No Mari signs noted. No raccoon eyes noted Eyes: PERRLA. EOMI. Conjunctiva and sclera normal. Eyelids normal. ENT: EAC normal. TM's Normal. Pharynx normal. Uvula midline. Moist mucous membranes. No trismus noted. No drooling noted. No muffled voice noted. Neck: Normal inspection. Neck supple. FROM. No adenopathy. Thyroid Normal. No meningeal signs. No neck mass noted. CVS: Normal heart rate and rhythm. Heart sound normal. No murmurs noted. Pulses normal throughout. Respiratory: No respiratory distress. Painless inspiration. Breath sounds normal. No wheezes/rales/rhonchi noted. Chest nontender. No accessory muscle usage noted or decreased air movement noted. Abdomen: Soft and nontender. Bowel sounds normal in all 4 quadrants. No distention noted. No organomegaly noted. No visible injury noted. Back: No CVA tenderness. Full range of motion noted. Skin: Skin warm and dry. Normal skin color. Normal skin turgor. No rashes/lesions/lacerations noted. Extremities: No lower extremity edema. Extremities exhibit normal range of motion. Extremities nontender. Neuro: Oriented X 3. No motor deficit. No sensory deficit. Reflexes normal. Psych: Appearance grossly normal, well-kept, mental status normal, speech slurred due to ETOH, movement normal, Is cooperative. Patient does not have a good thought process/thought content. Does not have good insight or judgment. Course Course Course Narrative: 17pm - nurse attempting to place an IV line patient is in rapid AFib with a ventricular rate of 122 although he bumps back down to the 90s then back to the 120 therefore will attempt to give some diltiazem and re-evaluate. - otherwise labs reviewed and patient with mild baseline anemia similar compared to prior. Random glucose 362. Lactic acid 2.3. Alkaline phosphate 119. Otherwise all other labs are within normal limits. UA revealed a 1000 of glucose although no evidence of UTI. Patient's ETOH level is 346 pending drugs of abuse screen. Patient most likely viral sepsis due to positive for COVID on 08/18/2020. - Sign out to NAZIA Thorpe pending IV line, possible admission versus discharge although it appears that patient is now requiring nasal cannula oxygen at 2 L due to his oxygen was 92 % and below Medical Decision Making MDM Narrative Medical decision making narrative: 15:20pm - 59-year-old male with a past medical history of atrial fibrillation on Eliquis, coronary artery disease, cardiomyopathy, CHF, hypertension, diabetes, alcoholic liver cirrhosis, alcohol dependent, varicose veins of lower extremity with inflammation and recent diagnosis with COVID-19 presenting via EMS after a bystander called EMS due to patient stumbling into the road. - on exam patient is alert although very intoxicated with a slurred speech with EtOH on odor otherwise alert and oriented x3 not in any acute distress. No signs of trauma. Mildly tachycardic at 111 and tachypneic at 22 otherwise all other vitals are within normal limits. No focal neural deficits are noted. Lungs clear to auscultation. CV RRR. Abdomen is soft and nontender. No lower extremity pitting edema or calf tenderness is noted. - Plan: Labs, EKG, chest x-ray, blood cultures, lactic acid. Start the patient on IV fluids and re-evaluate. Lab Data Result diagrams: 08/24/20 16:08/24/20 16:01 Labs: Lab Results 08/24/20 08/24/20 08/24/20 Range/Units 16:01 16:01 16:01 WBC 5.9 (4.8-10.8) X10*3/uL RBC 3.70 L (4.60-5.80) X10*6/uL Hgb 11.5 L (14.0-18.0) g/dl Hct 35.2 L (42-52) % MCV 95.1 (80-98) fL MCH 31.1 (27.0-33.0) pg MCHC 32.7 (31.0-36.0) g/dl RDW 14.9 (11.0-16.0) % Plt Count 112 L (160-400) X10*3/uL MPV 10.3 (9.4-12.4) fL Immature Gran % (Auto) 0.7 H (0.0-0.4) % Neut % (Auto) 68.5 (45-73) % Lymph % (Auto) 19.6 L (20-40) % [place] % (Auto) 9.9 (2-11) % Eos % (Auto) 1.0 (0-4) % Baso % (Auto) 0.3 (0-2) % Lymph # (Auto) 1.2 (1.2-4.9) X10*3/uL [place] # (Auto) 0.6 (0.1-1.2) X10*3/uL Eos # (Auto) 0.1 (0.0-0.4) X10*3/uL Baso # (Auto) 0.0 (0.0-0.2) X10*3/uL Abs Immat Gran (auto) 0.04 H (0.00-0.03) X10*3/uL Absolute Neuts (auto) 4.0 (2.0-8.3) X10*3/uL Absolute Nucleated RBC 0.000 (0.0-0.012) X10*3/uL Nucleated RBC % (auto) 0.0 (0.0-0.2) /100WBC Hold Purple Top SEE NOTE PT 14.2 H (10.8-13.0) SEC INR 1.2 H (0.9-1.1) Sodium (135-145) mmol/L Potassium (3.3-5.1) mmol/L Chloride (96-108) mmol/L Carbon Dioxide (22-29) mmol/L Anion Gap (12-20) BUN (9-16) mg/dL Creatinine (0.5-1.4) mg/dL Estim Creat Clear Calc Estimated GFR Random Glucose (60-115) mg/dL Lactic Acid (0.5-2.0) mmol/L Calcium (8.4-10.2) mg/dL Magnesium Total Bilirubin (0.0-1.0) mg/dL AST (5-37) U/L ALT (0-40) U/L Alkaline Phosphatase (39-117) U/L Total Protein (6.5-8.0) g/dL Albumin (3.5-5.0) g/dL Urine Color Urine Appearance Urine pH (5.0-8.0) Ur Specific [place] (1.005-1.025) Urine Protein (NEG-TRACE) MG/DL Urine Glucose (UA) (NEG) MG/DL Urine Ketones (NEG) MG/DL Urine Blood (NEG) Urine Nitrite (NEG) Ur Leukocyte Esterase (NEG) Ethyl Alcohol mg/dL 08/24/20 08/24/20 08/24/20 Range/Units 16:01 16:01 16:01 WBC (4.8-10.8) X10*3/uL RBC (4.60-5.80) X10*6/uL Hgb (14.0-18.0) g/dl Hct (42-52) % MCV (80-98) fL MCH (27.0-33.0) pg MCHC (31.0-36.0) g/dl RDW (11.0-16.0) % Plt Count (160-400) X10*3/uL MPV (9.4-12.4) fL Immature Gran % (Auto) (0.0-0.4) % Neut % (Auto) (45-73) % Lymph % (Auto) (20-40) % [place] % (Auto) (2-11) % Eos % (Auto) (0-4) % Baso % (Auto) (0-2) % Lymph # (Auto) (1.2-4.9) X10*3/uL [place] # (Auto) (0.1-1.2) X10*3/uL Eos # (Auto) (0.0-0.4) X10*3/uL Baso # (Auto) (0.0-0.2) X10*3/uL Abs Immat Gran (auto) (0.00-0.03) X10*3/uL Absolute Neuts (auto) (2.0-8.3) X10*3/uL Absolute Nucleated RBC (0.0-0.012) X10*3/uL Nucleated RBC % (auto) (0.0-0.2) /100WBC Hold Purple Top PT (10.8-13.0) SEC INR (0.9-1.1) Sodium 138 (135-145) mmol/L Potassium 4.1 (3.3-5.1) mmol/L Chloride 104 (96-108) mmol/L Carbon Dioxide 20 L (22-29) mmol/L Anion Gap 18 (12-20) BUN 5 L D (9-16) mg/dL Creatinine 0.73 (0.5-1.4) mg/dL Estim Creat Clear Calc 139.8 Estimated GFR > 60 Random Glucose 362 H* (60-115) mg/dL Lactic Acid (0.5-2.0) mmol/L Calcium 9.0 (8.4-10.2) mg/dL Magnesium Cancelled 1.6 Total Bilirubin 0.7 (0.0-1.0) mg/dL AST 36 (5-37) U/L ALT 24 (0-40) U/L Alkaline Phosphatase 119 H (39-117) U/L Total Protein 6.9 (6.5-8.0) g/dL Albumin 3.7 (3.5-5.0) g/dL Urine Color Urine Appearance Urine pH (5.0-8.0) Ur Specific [place] (1.005-1.025) Urine Protein (NEG-TRACE) MG/DL Urine Glucose (UA) (NEG) MG/DL Urine Ketones (NEG) MG/DL Urine Blood (NEG) Urine Nitrite (NEG) Ur Leukocyte Esterase (NEG) Ethyl Alcohol 346 H* mg/dL 08/24/20 08/24/20 Range/Units 16:01 16:13 WBC (4.8-10.8) X10*3/uL RBC (4.60-5.80) X10*6/uL Hgb (14.0-18.0) g/dl Hct (42-52) % MCV (80-98) fL MCH (27.0-33.0) pg MCHC (31.0-36.0) g/dl RDW (11.0-16.0) % Plt Count (160-400) X10*3/uL MPV (9.4-12.4) fL Immature Gran % (Auto) (0.0-0.4) % Neut % (Auto) (45-73) % Lymph % (Auto) (20-40) % [place] % (Auto) (2-11) % Eos % (Auto) (0-4) % Baso % (Auto) (0-2) % Lymph # (Auto) (1.2-4.9) X10*3/uL [place] # (Auto) (0.1-1.2) X10*3/uL Eos # (Auto) (0.0-0.4) X10*3/uL Baso # (Auto) (0.0-0.2) X10*3/uL Abs Immat Gran (auto) (0.00-0.03) X10*3/uL Absolute Neuts (auto) (2.0-8.3) X10*3/uL Absolute Nucleated RBC (0.0-0.012) X10*3/uL Nucleated RBC % (auto) (0.0-0.2) /100WBC Hold Purple Top PT (10.8-13.0) SEC INR (0.9-1.1) Sodium (135-145) mmol/L Potassium (3.3-5.1) mmol/L Chloride (96-108) mmol/L Carbon Dioxide (22-29) mmol/L Anion Gap (12-20) BUN (9-16) mg/dL Creatinine (0.5-1.4) mg/dL Estim Creat Clear Calc Estimated GFR Random Glucose (60-115) mg/dL Lactic Acid 2.3 H* (0.5-2.0) mmol/L Calcium (8.4-10.2) mg/dL Magnesium Total Bilirubin (0.0-1.0) mg/dL AST (5-37) U/L ALT (0-40) U/L Alkaline Phosphatase (39-117) U/L Total Protein (6.5-8.0) g/dL Albumin (3.5-5.0) g/dL Urine Color STRAW Urine Appearance CLEAR Urine pH 6.0 (5.0-8.0) Ur Specific [place] <= 1.005 (1.005-1.025) Urine Protein 1+ H (NEG-TRACE) MG/DL Urine Glucose (UA) >=1000 H (NEG) MG/DL Urine Ketones NEG (NEG) MG/DL Urine Blood 1+ H (NEG) Urine Nitrite NEG (NEG) Ur Leukocyte Esterase NEG (NEG) Ethyl Alcohol mg/dL ECG Data Attestation: I personally reviewed and interpreted this ECG as follows: Interpretation: Atrial fibrillation with rapid ventricular response at a ventricular rate of 122 with left axis deviation with nonspecific ST changes no acute ischemic changes noted at this time. Similar compared to prior EKG on 08/19/2019. Critical Care Time Critical Care Time Critical Care Time: Yes Total Critical Care Time: 60 Attestation: I personally attest to this time spent taking care of the patient Discharge Plan Discharge Clinical Impression: Alcohol intoxication, Atrial fibrillation with rapid ventricular response Prescriptions: No Action tamsulosin 0.4 mg Capsule 0.4 mg PO DAILY RF: 0 fluoxetine 20 mg Capsule 20 mg PO DAILY RF: 0 magnesium oxide 400 mg (241.3 mg magnesium) tablet 800 mg PO BID Qty: 20 RF: 0 trazodone 50 mg tablet 1 tab PO BEDTIME RF: 0 gabapentin 400 mg capsule 1 cap PO TID RF: 0 metformin 1,000 mg tablet 1 tab PO BID RF: 0 Lantus Solostar U-100 Insulin 100 unit/mL (3 mL) insulin pen 6 unit subcut QAM RF: 0 terbinafine HCl 1 % Cream 1 appl TOPICAL BID RF: 0 cholecalciferol (vitamin D3) 50 mcg (2,000 unit) Tablet 50 mcg PO DAILY RF: 0 ammonium lactate 12 % cream 1 appl topical BID RF: 0 acamprosate 333 mg Tablet,Delayed Release (Dr/Ec) 666 mg PO TID RF: 0 apixaban 5 mg Tablet 5 mg PO BID RF: 0 folic acid 1 mg Tablet 1 mg PO DAILY RF: 0 Slow-Mag 71.5 mg Tablet,Delayed Release (Dr/Ec) 71.5 mg PO DAILY RF: 0 dexamethasone [Decadron] 6 mg tablet 6 mg PO DAILY Qty: 9 RF: 0 multivitamin [One Daily Multivitamin] Tablet 1 tab PO DAILY RF: 0 furosemide 40 mg tablet 40 mg PO BID RF: 0 atorvastatin 40 mg tablet 40 mg PO BEDTIME RF: 0 metoprolol succinate 50 mg tablet extended release 24 hr 50 mg PO DAILY RF: 0 thiamine HCl (vitamin B1) 100 mg tablet 100 mg PO DAILY RF: 0 aspirin 81 mg tablet,delayed release (DR/EC) 81 mg PO DAILY RF: 0 spironolactone 25 mg tablet 25 mg PO DAILY RF: 0
[2020-08-24 16:12] LABS: MANUAL DIFF FLAG NO
[2020-08-24 16:13] LABS: Basophils Percent Auto 0.3 % (0-2); Eosinophils Absolute Auto 0.1 X10*3/uL (0.0-0.4); Hematocrit 35.2 % (42-52); Hemoglobin 11.5 g/dl (14.0-18.0); Imm Gran Abs Auto 0.04 X10*3/uL (0.00-0.03); Imm Gran Pct Auto 0.7 % (0.0-0.4); Lymphocytes Absolute Auto 1.2 X10*3/uL (1.2-4.9); Lymphocytes Percent Auto 19.6 % (20-40); Mean Corpuscular HGB Conc 32.7 g/dl (31.0-36.0); Mean Corpuscular Hemoglobin 31.1 pg (27.0-33.0); Mean Corpuscular Volume 95.1 fL (80-98); Mean Platelet Volume 10.3 fL (9.4-12.4); Monocytes Absolute Auto 0.6 X10*3/uL (0.1-1.2); Monocytes Percent Auto 9.9 % (2-11); Neutrophils Percent Auto 68.5 % (45-73); Platelet Count 112 X10*3/uL (160-400); Red Cell Distribution Width 14.9 % (11.0-16.0); White Blood Count 5.9 X10*3/uL (4.8-10.8)
--- NOTE | 2020-08-24 16:15 | PC.NURSE ---
slightly more alert but still unable to answer questions. sao2 srops to low 90's while asleep. maintains at 97 on 2L. difficult stick. no iv.
[2020-08-24 16:19] LABS: INTERNATIONAL NORM RATIO 1.2 (0.9-1.1); Prothrombin Time 14.2 SEC (10.8-13.0)
[2020-08-24 16:26] LABS: Glucose Urine UA >=1000 MG/DL (NEG); Leukocyte Esterase Urine NEG (NEG); Nitrite Urine NEG (NEG); Specific Gravity - Urine <= 1.005 (1.005-1.025); Urine Blood 1+ (NEG); Urine Ketones NEG (NEG); Urine Protein 1+ MG/DL (NEG-TRACE)
[2020-08-24 16:27] LABS: Appearance Urine CLEAR; Color Urine STRAW
[2020-08-24 16:38] LABS: Lactic Acid 2.3 mmol/L (0.5-2.0)
[2020-08-24 16:46] LABS: Ethanol 346 mg/dL
[2020-08-24 16:52] LABS: Alanine Aminotransferase 24 U/L (0-40); Albumin Level 3.7 g/dL (3.5-5.0); Alkaline Phosphatase 119 U/L (39-117); Anion Gap 18 (12-20); Aspartate Amino Transferase 36 U/L (5-37); Bilirubin Total 0.7 mg/dL (0.0-1.0); Blood Urea Nitrogen 5 mg/dL (9-16); Carbon Dioxide 20 mmol/L (22-29); Chloride 104 mmol/L (96-108); Creatinine Clr Calc Pharmacy 139.8; Estimated Glomerular Filt Rate > 60; Glucose Random 362 mg/dL (60-115); Magnesium 1.6 mg/dL (1.6-2.6); Potassium 4.1 mmol/L (3.3-5.1); Sodium 138 mmol/L (135-145); Total Protein 6.9 g/dL (6.5-8.0)
[2020-08-24 16:57] LABS: Amphetamine Screen Urine Not Detected (Not Detect); Barbiturates, Urine POSITIVE (Not Detect); Benzodiazepines Screen Urine Not Detected (Not Detect); Cannabinoid Screen Urine Not Detected (Not Detect); Cocaine Screen Urine Not Detected (Not Detect); Opiate Screen Urine Not Detected (Not Detect); Phencyclidine Screen Urine Not Detected (Not Detect); Squamous Epithelial Cell Urine 1+ /LPF; WBC Urine 0 /HPF (0-4)
[2020-08-24 16:57] LABS: B Type Natriuretic Peptide 118 pg/mL (<100)
[2020-08-24] MEDS: 0.9 % Sodium Chloride 2,121 ML 707 ML IV (16:59)
[2020-08-24] MEDS: levoFLOXacin/D5W 750 MG/150 ML PIGGYBACK 100 MG IV (17:58)
[2020-08-24 18:08] LABS: Reflex Lactate? Lactic Acid Added
[2020-08-24 20:20] LABS: Glucose, Whole Blood 245 mg/dL (60-115)
--- NOTE | 2020-08-24 20:30 | PC.NURSE ---
INCREASINGLY ALERT. SKIN PWD. SLIGHTLY LABORED RESP IN BED, A FIB IN 110'S ON MONITOR. 2ND LITER INFUSING. PT ABLE TO FOLLOW COMMANDS AND STATE NEEDS STATES I FEEL BETTER
[2020-08-24 20:44] LABS: ~Lactic Acid-LAB USE ONLY 1.9 mmol/L (0.5-2.0)
[2020-08-25] VITALS: BP 139/79; PULSE 110; RESP 18; O2SAT 94
[2020-08-25 02:00] VITALS: RESP 20; O2SAT 95
[2020-08-25 02:27] VITALS: BP 157/90; PULSE 120
[2020-08-25] MEDS: dilTIAZem HCL 30 MG TABLET PO (02:27)
[2020-08-25 03:31] VITALS: BP 178/89; PULSE 108; RESP 20; O2SAT 95
== END 2020-08-25 03:44 | disposition home or self-care (01) ==
PROVIDERS: Physician Assistant Medical; Emergency Provider Emergency Medicine
DX: F10.20 Alcohol dependence, uncomplicated (principal); Y90.8 Blood alcohol level of 240 mg/100 ml or more; I48.20 Chronic atrial fibrillation, unspecified; I11.0 Hypertensive heart disease with heart failure; I50.9 Heart failure, unspecified; E11.9 Type 2 diabetes mellitus without complications; Z86.16 Personal history of COVID-19; Z79.82 Long term (current) use of aspirin; Z79.02 Long term (current) use of antithrombotics/antiplatelets; Z79.4 Long term (current) use of insulin; Z79.899 Other long term (current) drug therapy
CPT/HCPCS: 36415; 71045; 80053; 80307; 80320; 81001; 82947; 83605; 83735; 83880; 85025; 85610; 87040; 93005; 96361; 96365; 99285; 99291; J1956

== ENCOUNTER 2020-08-25 18:36 | Emergency (ER) | payer MEDICARE, MEDICAID, SELFPAY ==
--- NOTE | ~2020-08-25 | CT_ITS ---
EXAMINATION: CT HEAD, CT CERVICAL SPINE, CT CHEST, CT ABDOMEN AND PELVIS WITHOUT CONTRAST. CLINICAL INFORMATION: EtOH, fall, on anticoagulation. COMPARISON: None TECHNIQUE: 5 mm thin axial and reformatted 2 mm thin sagittal and coronal images of brain were obtained. Axial 3 mm thin and reformatted 2 mm thin sagittal and coronal images of cervical spine were obtained. Subsequently axial 3 mm thin and reformatted 3 mm thin sagittal and coronal images of chest and 5 mm thin axial and reformatted 3 mm thin sagittal and coronal images of abdomen and pelvis were obtained following IV 100 mL Omnipaque 300. DLP [id number] FINDINGS: BRAIN: There is no acute intra-axial, extra-axial bleed, masses or midline shift. There is no acute infarction in evolution. There is no edema. The lateral ventricles are symmetrical in size and configuration without enlargement. Bone windows reveal no calvarial abnormality. Bilateral paranasal sinuses and mastoid air cells are well-aerated. There is no scalp soft tissue abnormality seen. CERVICAL SPINE: There is mild straightening of cervical lordosis. The vertebral heights, alignment and disc heights are normal. The craniovertebral junction and the C1-C2 alignment is normal. No acute fracture, dislocation or subluxation seen. The prevertebral and paravertebral soft tissues are normal. CHEST: Lungs are fairly well-expanded with patchy ill-defined opacity right upper, mid and lower lobes suspicious for infiltrate. Contusion is considered less likely. 1.3 cm groundglass attenuation is seen in right upper lobe on top of minor fissure. No additional groundglass density seen. The thyroid lobes are symmetrical and normal. The central trachea and the bronchi widely patent. Heart size is mildly enlarged. The great vessels are normal caliber. No abnormal size mediastinal or hilar lymph nodes seen. There are coronary artery calcifications present. There is no pericardial effusion. There is minimal right posterior pleural thickening. No pleural effusion, calcification or pneumothorax. The axilla and chest wall appears unremarkable. There is no acute osseous abnormality seen. Mild spondylosis seen throughout mid and lower dorsal spine. ABDOMEN AND PELVIS: The liver is normal size, shape and density. No focal lesion or intrahepatic ductal dilatation seen. There are no radiopaque gallstones or wall thickening.. Visualized spleen, pancreas and bilateral adrenal glands are unremarkable. Both kidneys are normal size and shape and attenuation. There are no radiopaque renal calculi or hydroureteronephrosis. The abdominal aorta is normal course and caliber. There are no retroperitoneal lymph nodes or mass seen. There is scattered gas and stool seen in the colon without distention. The small bowel loops are normal. The urinary bladder is distended extending almost to the umbilicus. The prostate gland is normal size. No free air or free fluid seen. The abdominal wall appears unremarkable. There is no acute fracture, lytic or sclerotic process. CT/CT cervical spine wo con IMPRESSION: No acute intracranial process seen. There is no acute fracture, dislocation or subluxation in cervical spine. There is mild straightening of cervical lordosis. No acute process seen in the chest, abdomen and pelvis. Distended urinary bladder extending almost to the umbilicus.
[2020-08-25 18:53] VITALS: BP 142/91; PULSE 119; RESP 16; TEMP 37; O2SAT 97; BMI 39.0
[2020-08-25 19:37] LABS: Basophils Percent Auto 0.3 % (0-2); Eosinophils Absolute Auto 0.1 X10*3/uL (0.0-0.4); Eosinophils Percent Auto 0.6 % (0-4); Hematocrit 34.8 % (42-52); Hemoglobin 11.5 g/dl (14.0-18.0); Imm Gran Abs Auto 0.03 X10*3/uL (0.00-0.03); Imm Gran Pct Auto 0.3 % (0.0-0.4); Lymphocytes Absolute Auto 1.5 X10*3/uL (1.2-4.9); Lymphocytes Percent Auto 17.1 % (20-40); MANUAL DIFF FLAG NO; Mean Corpuscular Hemoglobin 31.3 pg (27.0-33.0); Mean Corpuscular Volume 94.6 fL (80-98); Mean Platelet Volume 9.7 fL (9.4-12.4); Monocytes Absolute Auto 0.8 X10*3/uL (0.1-1.2); Monocytes Percent Auto 9.2 % (2-11); Neutrophils Absolute Auto 6.3 X10*3/uL (2.0-8.3); Neutrophils Percent Auto 72.5 % (45-73); Platelet Count 116 X10*3/uL (160-400); Red Blood Count 3.68 X10*6/uL (4.60-5.80); Red Cell Distribution Width 15.2 % (11.0-16.0); White Blood Count 8.7 X10*3/uL (4.8-10.8)
[2020-08-25 19:43] LABS: INTERNATIONAL NORM RATIO 1.3 (0.9-1.1); Prothrombin Time 15.3 SEC (10.8-13.0)
[2020-08-25 19:48] LABS: Partial Thromboplastin Time 38.6 SEC (24.1-38.0)
[2020-08-25 20:03] LABS: Ethanol 303 mg/dL
[2020-08-25 20:06] LABS: Alanine Aminotransferase 27 U/L (0-40); Albumin Level 3.8 g/dL (3.5-5.0); Alkaline Phosphatase 115 U/L (39-117); Anion Gap 18 (12-20); Aspartate Amino Transferase 40 U/L (5-37); B Type Natriuretic Peptide 239 pg/mL (<100); Bilirubin Direct 0.4 mg/dL (0.0-0.5); Blood Urea Nitrogen 4 mg/dL (9-16); Calcium 9.1 mg/dL (8.4-10.2); Carbon Dioxide 22 mmol/L (22-29); Chloride 102 mmol/L (96-108); Creatinine Clr Calc Pharmacy 135.4; Estimated Glomerular Filt Rate > 60; Glucose Random 322 mg/dL (60-115); Lipase 10 U/L (8-78); Magnesium 1.5 mg/dL (1.6-2.6); Potassium 3.5 mmol/L (3.3-5.1); Sodium 138 mmol/L (135-145); Total Protein 7.5 g/dL (6.5-8.0)
[2020-08-25 20:08] LABS: Lactic Acid 2.7 mmol/L (0.5-2.0)
[2020-08-25] MEDS: iohexoL 350 MG/ML 100 ML INFUS..BTL IV (20:41)
--- NOTE | 2020-08-25 21:10 | ED_ITS ---
HPI - Alcohol General Chief Complaint: ETOH/Substance Use <YAYA Geller - Last Filed: 08/26/20 02:02> Stated Complaint: bilateral leg pain, etoh <YAYA Geller - Last Filed: 08/26/20 02:02> Time Seen by Provider: 08/25/20 18:44 <YAYA Geller - Last Filed: 08/26/20 02:02> Source: patient and EMS <YAYA Geller Last Filed: 08/26/20 02:02> Mode of arrival: EMS <YAYA Geller Last Filed: 08/26/20 02:02> History of Present Illness HPI narrative: 59-year-old male with a PMHx of atrial fibrillation, CAD, cardiomyopathy, CHF, HTN, DM, alcoholic liver cirrhosis, alcohol dependent, varicose veins of lower extremity, recent COVID-19 on 08/18/2020 with recent admission for rapid AFib/COVID-19, BIBA for ETOH intoxication, fall and head trauma. Patient admits to drinking a lot today , +fall, reports hitting head, denies LOC, states does not remember fall. Patient is on Eliquis. Reports headache, CP, and abdominal pain. Denies nausea/vomiting, vision changes. History limited secondary to patient's acute EtOH intoxication <YAYA Geller - Last Filed: 08/26/20 02:02> MD complaint: alcohol intoxication <YAYA Geller - Last Filed: 08/26/20 02:02> Related Data Home Medications: Home Medications Medication Instructions Recorded Confirmed aspirin 81 mg PO DAILY 01/22/20 08/18/20 atorvastatin 40 mg PO BEDTIME 01/22/20 08/18/20 furosemide 40 mg PO BID 01/22/20 08/18/20 metoprolol succinate 50 mg PO DAILY 01/22/20 08/18/20 multivitamin [One Daily 1 tab PO DAILY 01/22/20 08/18/20 Multivitamin] spironolactone 25 mg PO DAILY 01/22/20 08/18/20 thiamine HCl (vitamin B1) 100 mg PO DAILY 01/22/20 08/18/20 fluoxetine 20 mg PO DAILY 05/02/20 08/18/20 tamsulosin 0.4 mg PO DAILY 05/02/20 08/18/20 Lantus Solostar U-100 Insulin 6 unit SUBCUT QAM 08/18/20 08/18/20 Slow-Mag 71.5 mg PO DAILY 08/18/20 08/18/20 acamprosate 666 mg PO TID 08/18/20 08/18/20 ammonium lactate 1 appl TOPICAL BID 08/18/20 08/18/20 apixaban 5 mg PO BID 08/18/20 08/18/20 cholecalciferol (vitamin D3) 50 mcg PO DAILY 08/18/20 08/18/20 folic acid 1 mg PO DAILY 08/18/20 08/18/20 gabapentin 1 cap PO TID 08/18/20 08/18/20 metformin 1 tab PO BID 08/18/20 08/18/20 terbinafine HCl 1 appl TOPICAL BID 08/18/20 08/18/20 trazodone 1 tab PO BEDTIME 08/18/20 08/18/20 Previous Rx's Medication Instructions Recorded magnesium oxide 800 mg PO BID #20 tab 05/05/20 dexamethasone [Decadron] 6 mg PO DAILY #9 tab 08/19/20 <YAYA Geller - Last Filed: 08/26/20 02:02> Allergies/Adverse Reactions: Allergies Allergy/AdvReac Type Severity Reaction Status Date / Time Penicillins [PCN] Allergy Unknown UNKNOWN Verified 08/24/20 15:20 <YAYA Geller - Last Filed: 08/26/20 02:02> Review of Systems Review of Systems: Constitutional: No Fever, No Chills Eyes: No Eye Pain, No Vision Changes Cardiovascular: + Chest Pain, No SOB, +chronic Edema Respiratory: No Cough Gastrointestinal: No Nausea, No Vomiting,+ Abdominal pain Musculoskeletal: No joint pain, No Myalgias, No Joint Swelling Skin: No Skin Lesions, No rash Neuro: No Loss of Consciousness, +Headache Heme/Lymph: + Bruising History limited secondary to patient's acute mental status/under the influence <YAYA Geller Last Filed: 08/26/20 02:02> Yes all other systems are reviewed and are negative <YAYA Geller Last Filed: 08/26/20 02:02> [facility] Past Medical History Attestation statement: The following information was validated with the patient. <YAYA Geller - Last Filed: 08/26/20 02:02> Medical History: Medical History A-fib CAD (coronary artery disease) Cardiomyopathy CHF (congestive heart failure) Cirrhosis Depression Diabetes ETOH abuse HTN (hypertension) <YAYA Geller - Last Filed: 08/26/20 02:02> Social History Social History: Social History Household Members: None Housing: Apartment Alcohol intake: current Alcohol intake frequency: 3 or more drinks per day Alcohol type: beer Smoking Status: Unknown if ever smoked Advance Directives: No Advance Directives Information Provided: Yes service: No Current occupational status: unemployed <YAYA Geller - Last Filed: 08/26/20 02:02> Physical Exam Vital Signs: Vital Signs: Last Vital Signs Temp 98.7 F 08/26/20 04:00 Pulse 116 H 08/26/20 06:35 Resp 08/26/20 06:35 BP 128/101 H 08/26/20 06:35 Pulse Ox 98 08/26/20 06:35 Body Mass Index 39.0 <YAYA Geller - Last Filed: 08/26/20 02:02> Vital Signs: Last Vital Signs Temp 98.7 F 08/26/20 04:00 Pulse 116 H 08/26/20 06:35 Resp 08/26/20 06:35 BP 128/101 H 08/26/20 06:35 Pulse Ox 98 08/26/20 06:35 Body Mass Index 39.0 <Kayla Su MD - Last Filed: 08/26/20 06:45> Const: Other: ETOH odor on breath, intoxicated <YAYA Geller - Last Filed: 08/26/20 02:02> General: alert and awake <YAYA Geller - Last Filed: 08/26/20 02:02> Nutritional Appearance: overweight <YAYA Geller - Last Filed: 08/26/20 02:02> Orientation/consciousness: patient oriented x3 <YAYA Geller - Last Filed: 08/26/20 02:02> Limitations: no limitations <YAYA Geller Last Filed: 08/26/20 02:02> HENMT: Head: Yes normal to inspection, Yes atraumatic, No Mari's sign and No raccoon eyes <Alee Pritchard DC - Last Filed: 08/26/20 02:02> Ears: hearing grossly normal bilaterally <Alee Pritchard DC - Last Filed: 08/26/20 02:02> General nose exam: Normal external nose present <Alee Pritchard DC - Last Filed: 08/26/20 02:02> Face and sinus: Yes normal facial exam <Alee Pritchard DC - Last Filed: 08/26/20 02:02> Mouth: Normal oral and palatal mucosa present <Alee Pritchard DC - Last Filed: 08/26/20 02:02> Throat: Yes posterior oropharynx normal <Alee Pritchard DC - Last Filed: 08/26/20 02:02> Eyes: General: appearance normal, both eyes and all related structures <Alee Pritchard DC - Last Filed: 08/26/20 02:02> Pupils: Equal, round and reactive pupils present <Alee Pritchard DC - Last Filed: 08/26/20 02:02> EOM: EOMs intact bilaterally <Alee Pritchard DC - Last Filed: 08/26/20 02:02> Neck: Other: No midline cervical spinous tenderness/step-offs <Alee Pritchard DC - Last Filed: 08/26/20 02:02> Neck: Yes normal visual inspection and Yes no meningeal signs <Alee Pritchard DC - Last Filed: 08/26/20 02:02> Chest: Chest palpation & inspection: normal inspection of the chest and no crepitus <Alee Pritchard DC - Last Filed: 08/26/20 02:02> Resp: Effort & Inspection: normal respiratory effort <Alee Pritchard DC - Last Filed: 08/26/20 02:02> Cardio: Rate: regular rate <Alee Pritchard DC - Last Filed: 08/26/20 02:02> Rhythm: abnormal rhythm <Alee Pritchard DC - Last Filed: 08/26/20 02:02> GI: Inspection: Yes normal to inspection <YAYA Geller - Last Filed: 08/26/20 02:02> Palpation (GI): Soft to palpation, nontender, no guarding and not rigid <Alee Francheska DC - Last Filed: 08/26/20 02:02> : Other: + ecchymosis noted to left flank <Alee Francheska DC - Last Filed: 08/26/20 02:02> Back/Spine/Pelvis: Other: No midline thoracic/lumbar spinous tenderness or christian p-off/deformity <Aleemary Pritchard DC - Last Filed: 08/26/20 02:02> Skin: Other: + ecchymosis noted to right arm <Aleemary Pritchard DC - Last Filed: 08/26/20 02:02> Rashes: no rashes <Alee Francheska DC - Last Filed: 08/26/20 02:02> Neuro: Other: Intermittently following commands, no focal deficits <Alee Pritchard DC - Last Filed: 08/26/20 02:02> General: patient oriented x3, tone normal, moves all extremities, no meningeal signs, no focal motor deficits and CN's II-XI intact bilaterally <Alee Francheska DC - Last Filed: 08/26/20 02:02> Cranial nerves: Yes Equal, round and reactive pupils present <Alee Francheska [facility] Last Filed: 08/26/20 02:02> Gait exam (Neuro): Normal gait present <Alee Francheska DC - Last Filed: 08/26/20 02:02> Extrem: Other: + chronic bilateral lower extremity pitting edema with venous stasis changes <Alee Francheska [facility] Last Filed: 08/26/20 02:02> General: Yes normal to inspection <Alee Francheska [facility] Last Filed: 08/26/20 02:02> Course Course Course Narrative: -no leukocytosis, H&H at baseline, lactic acid 2.7 likely from acute on chronic ETOH abuse, low concern for severe sepsis. Ethanol 303 -AST chronically elevated, CPK and BNP mildly elevated. Magnesium slightly low > IV repletion ordered CT head/brain wo con & CT Chest/abdomen/pelvis w con IMPRESSION: No acute intracranial process seen. There is no acute fracture, dislocation or subluxation in cervical spine. There is mild straightening of cervical lordosis. No acute process seen in the chest, abdomen and pelvis. Distended urinary bladder extending almost to the umbilicus >> patient urinated without difficulty -0000--patient desatting to 88% while sleeping, likely sleep apnea, recovers quickly to 96-98% on his own > 2L NC applied while patient is sleeping. -repeat lactic 2.3 > 1400--lactic cleared to 2.0 -0200-- ED care transferred to Dr. Su pending clinical sobriety, and anticipated d/c home <YAYA Geller - Last Filed: 08/26/20 02:02> Reviewed all investigations and re-evaluated the patient who states that he wishes to go home and is feeling better. He is clinically sober and is known to have atrial fibrillation and was provided his dose of metoprolol succinate prior to discharge. <Kayla Su MD - Last Filed: 08/26/20 06:45> MDM - Alcohol MDM Narrative Medical decision making narrative: 59-year-old male with a PMHx of atrial fibrillation, CAD, cardiomyopathy, CHF, HTN, DM, alcoholic liver cirrhosis, alcohol dependent, varicose veins of lower extremity, recent COVID-19 on 08/18/2020 with recent admission for rapid AFib/COVID-19, BIBA for ETOH intoxication, fall and head trauma. On exam patient in AFib with a heart rate ranging 119-99, intoxicated/EtOH odor on breath, intermittently following commands, A&O x3, ecchymosis noted on body, physical exam as above. Concern for internal injury/bleeding/ICH or fractures. Lower concern for severe sepsis/infectious etiology. Plan: EKG, labs, UA, head/C-spine CT, chest CT, CT AP, observe and reassess for clinical sobriety <YAYA Geller - Last Filed: 08/26/20 02:02> Differential Diagnosis Differential diagnosis: Likely alcohol dependence and alcohol intoxication <YAYA Geller - Last Filed: 08/26/20 02:02> Medical Records Attestation: I reviewed the patient's medical records. <YAYA Geller - Last Filed: 08/26/20 02:02> Lab Data Attestation: I reviewed the patient's lab results. <YAYA Geller - Last Filed: 08/26/20 02:02> Result diagrams: : 08/25/20 19:30 08/25/20 19:30 <YAYA Geller - Last Filed: 08/26/20 02:02> Labs: Lab Results 08/25/20 08/25/20 08/25/20 Range/Units 19:29 19:30 19:30 WBC 8.7 (4.8-10.8) X10*3/uL RBC 3.68 L (4.60-5.80) X10*6/uL Hgb 11.5 L (14.0-18.0) g/dl Hct 34.8 L (42-52) % MCV 94.6 (80-98) fL MCH 31.3 (27.0-33.0) pg MCHC 33.0 (31.0-36.0) g/dl RDW 15.2 (11.0-16.0) % Plt Count 116 L (160-400) X10*3/uL MPV 9.7 (9.4-12.4) fL Immature Gran % (Auto) 0.3 (0.0-0.4) % Neut % (Auto) 72.5 (45-73) % Lymph % (Auto) 17.1 L (20-40) % Logan % (Auto) 9.2 (2-11) % Eos % (Auto) 0.6 (0-4) % Baso % (Auto) 0.3 (0-2) % Lymph # (Auto) 1.5 (1.2-4.9) X10*3/uL Logan # (Auto) 0.8 (0.1-1.2) X10*3/uL Eos # (Auto) 0.1 (0.0-0.4) X10*3/uL Baso # (Auto) 0.0 (0.0-0.2) X10*3/uL Abs Immat Gran (auto) 0.03 (0.00-0.03) X10*3/uL Absolute Neuts (auto) 6.3 (2.0-8.3) X10*3/uL Absolute Nucleated RBC 0.000 (0.0-0.012) X10*3/uL Nucleated RBC % (auto) 0.0 (0.0-0.2) /100WBC PT (10.8-13.0) SEC INR (0.9-1.1) APTT (24.1-38.0) SEC Sodium 138 (135-145) mmol/L Potassium 3.5 (3.3-5.1) mmol/L Chloride 102 (96-108) mmol/L Carbon Dioxide 22 (22-29) mmol/L Anion Gap 18 (12-20) BUN 4 L (9-16) mg/dL Creatinine 0.76 (0.5-1.4) mg/dL Estim Creat Clear Calc 135.4 Estimated GFR > 60 Random Glucose 322 H (60-115) mg/dL Lactic Acid 2.7 H* (0.5-2.0) mmol/L Lactic Acid Fup @ 2Hr (0.5-2.0) mmol/L Lactic Acid Fup @ 4Hr (0.5-2.0) mmol/L Calcium 9.1 (8.4-10.2) mg/dL Magnesium 1.5 L (1.6-2.6) mg/dL Total Bilirubin 1.0 (0.0-1.0) mg/dL Direct Bilirubin 0.4 (0.0-0.5) mg/dL AST 40 H (5-37) U/L ALT 27 (0-40) U/L Alkaline Phosphatase 115 (39-117) U/L Total Creatine Kinase (38-174) U/L B-Natriuretic Peptide (<100) pg/mL Total Protein 7.5 (6.5-8.0) g/dL Albumin 3.8 (3.5-5.0) g/dL Lipase 10 (8-78) U/L Urine Color Urine Appearance Urine pH (5.0-8.0) Ur Specific [place] (1.005-1.025) Urine Protein (NEG-TRACE) MG/DL Urine Glucose (UA) (NEG) MG/DL Urine Ketones (NEG) MG/DL Urine Blood (NEG) Urine Nitrite (NEG) Ur Leukocyte Esterase (NEG) Urine RBC (0) /HPF Urine WBC (0-4) /HPF Ur Squamous Epith Cells /LPF Urine Bacteria /LPF Urine Mucus /LPF Urine Opiates Screen (Not Detect) Ur Barbiturates Screen (Not Detect) Ur Phencyclidine Scrn (Not Detect) Ur Amphetamines Screen (Not Detect) U Benzodiazepines Scrn (Not Detect) Urine Cocaine Screen (Not Detect) U Marijuana (THC) Screen (Not Detect) Ethyl Alcohol mg/dL 08/25/20 08/25/20 08/25/20 Range/Units 19:30 19:30 19:30 WBC (4.8-10.8) X10*3/uL RBC (4.60-5.80) X10*6/uL Hgb (14.0-18.0) g/dl Hct (42-52) % MCV (80-98) fL MCH (27.0-33.0) pg MCHC (31.0-36.0) g/dl RDW (11.0-16.0) % Plt Count (160-400) X10*3/uL MPV (9.4-12.4) fL Immature Gran % (Auto) (0.0-0.4) % Neut % (Auto) (45-73) % Lymph % (Auto) (20-40) % Logan % (Auto) (2-11) % Eos % (Auto) (0-4) % Baso % (Auto) (0-2) % Lymph # (Auto) (1.2-4.9) X10*3/uL Logan # (Auto) (0.1-1.2) X10*3/uL Eos # (Auto) (0.0-0.4) X10*3/uL Baso # (Auto) (0.0-0.2) X10*3/uL Abs Immat Gran (auto) (0.00-0.03) X10*3/uL Absolute Neuts (auto) (2.0-8.3) X10*3/uL Absolute Nucleated RBC (0.0-0.012) X10*3/uL Nucleated RBC % (auto) (0.0-0.2) /100WBC PT 15.3 H (10.8-13.0) SEC INR 1.3 H (0.9-1.1) APTT 38.6 H (24.1-38.0) SEC Sodium (135-145) mmol/L Potassium (3.3-5.1) mmol/L Chloride (96-108) mmol/L Carbon Dioxide (22-29) mmol/L Anion Gap (12-20) BUN (9-16) mg/dL Creatinine (0.5-1.4) mg/dL Estim Creat Clear Calc Estimated GFR Random Glucose (60-115) mg/dL Lactic Acid (0.5-2.0) mmol/L Lactic Acid Fup @ 2Hr (0.5-2.0) mmol/L Lactic Acid Fup @ 4Hr (0.5-2.0) mmol/L Calcium (8.4-10.2) mg/dL Magnesium (1.6-2.6) mg/dL Total Bilirubin (0.0-1.0) mg/dL Direct Bilirubin (0.0-0.5) mg/dL AST (5-37) U/L ALT (0-40) U/L Alkaline Phosphatase (39-117) U/L Total Creatine Kinase (38-174) U/L B-Natriuretic Peptide 239 H (<100) pg/mL Total Protein (6.5-8.0) g/dL Albumin (3.5-5.0) g/dL Lipase (8-78) U/L Urine Color Urine Appearance Urine pH (5.0-8.0) Ur Specific [place] (1.005-1.025) Urine Protein (NEG-TRACE) MG/DL Urine Glucose (UA) (NEG) MG/DL Urine Ketones (NEG) MG/DL Urine Blood (NEG) Urine Nitrite (NEG) Ur Leukocyte Esterase (NEG) Urine RBC (0) /HPF Urine WBC (0-4) /HPF Ur Squamous Epith Cells /LPF Urine Bacteria /LPF Urine Mucus /LPF Urine Opiates Screen (Not Detect) Ur Barbiturates Screen (Not Detect) Ur Phencyclidine Scrn (Not Detect) Ur Amphetamines Screen (Not Detect) U Benzodiazepines Scrn (Not Detect) Urine Cocaine Screen (Not Detect) U Marijuana (THC) Screen (Not Detect) Ethyl Alcohol 303 H* mg/dL 08/25/20 08/25/20 08/25/20 Range/Units 19:30 21:31 21:32 WBC (4.8-10.8) X10*3/uL RBC (4.60-5.80) X10*6/uL Hgb (14.0-18.0) g/dl Hct (42-52) % MCV (80-98) fL MCH (27.0-33.0) pg MCHC (31.0-36.0) g/dl RDW (11.0-16.0) % Plt Count (160-400) X10*3/uL MPV (9.4-12.4) fL Immature Gran % (Auto) (0.0-0.4) % Neut % (Auto) (45-73) % Lymph % (Auto) (20-40) % Logan % (Auto) (2-11) % Eos % (Auto) (0-4) % Baso % (Auto) (0-2) % Lymph # (Auto) (1.2-4.9) X10*3/uL Logan # (Auto) (0.1-1.2) X10*3/uL Eos # (Auto) (0.0-0.4) X10*3/uL Baso # (Auto) (0.0-0.2) X10*3/uL Abs Immat Gran (auto) (0.00-0.03) X10*3/uL Absolute Neuts (auto) (2.0-8.3) X10*3/uL Absolute Nucleated RBC (0.0-0.012) X10*3/uL Nucleated RBC % (auto) (0.0-0.2) /100WBC PT (10.8-13.0) SEC INR (0.9-1.1) APTT (24.1-38.0) SEC Sodium (135-145) mmol/L Potassium (3.3-5.1) mmol/L Chloride (96-108) mmol/L Carbon Dioxide (22-29) mmol/L Anion Gap (12-20) BUN (9-16) mg/dL Creatinine (0.5-1.4) mg/dL Estim Creat Clear Calc Estimated GFR Random Glucose (60-115) mg/dL Lactic Acid (0.5-2.0) mmol/L Lactic Acid Fup @ 2Hr (0.5-2.0) mmol/L Lactic Acid Fup @ 4Hr (0.5-2.0) mmol/L Calcium (8.4-10.2) mg/dL Magnesium (1.6-2.6) mg/dL Total Bilirubin (0.0-1.0) mg/dL Direct Bilirubin (0.0-0.5) mg/dL AST (5-37) U/L ALT (0-40) U/L Alkaline Phosphatase (39-117) U/L Total Creatine Kinase 200 H (38-174) U/L B-Natriuretic Peptide (<100) pg/mL Total Protein (6.5-8.0) g/dL Albumin (3.5-5.0) g/dL Lipase (8-78) U/L Urine Color YELLOW Urine Appearance CLEAR Urine pH 5.5 (5.0-8.0) Ur Specific [place] <= 1.005 (1.005-1.025) Urine Protein 2+ H (NEG-TRACE) MG/DL Urine Glucose (UA) >=1000 H (NEG) MG/DL Urine Ketones NEG (NEG) MG/DL Urine Blood 2+ H (NEG) Urine Nitrite NEG (NEG) Ur Leukocyte Esterase NEG (NEG) Urine RBC 1-4 (0) /HPF Urine WBC 1-4 (0-4) /HPF Ur Squamous Epith Cells TRACE /LPF Urine Bacteria NONE /LPF Urine Mucus TRACE /LPF Urine Opiates Screen Not Detected (Not Detect) Ur Barbiturates Screen POSITIVE H (Not Detect) Ur Phencyclidine Scrn Not Detected (Not Detect) Ur Amphetamines Screen Not Detected (Not Detect) U Benzodiazepines Scrn Not Detected (Not Detect) Urine Cocaine Screen Not Detected (Not Detect) U Marijuana (THC) Screen Not Detected (Not Detect) Ethyl Alcohol mg/dL 08/25/20 08/26/20 Range/Units 22:27 01:04 WBC (4.8-10.8) X10*3/uL RBC (4.60-5.80) X10*6/uL Hgb (14.0-18.0) g/dl Hct (42-52) % MCV (80-98) fL MCH (27.0-33.0) pg MCHC (31.0-36.0) g/dl RDW (11.0-16.0) % Plt Count (160-400) X10*3/uL MPV (9.4-12.4) fL Immature Gran % (Auto) (0.0-0.4) % Neut % (Auto) (45-73) % Lymph % (Auto) (20-40) % Logan % (Auto) (2-11) % Eos % (Auto) (0-4) % Baso % (Auto) (0-2) % Lymph # (Auto) (1.2-4.9) X10*3/uL Logan # (Auto) (0.1-1.2) X10*3/uL Eos # (Auto) (0.0-0.4) X10*3/uL Baso # (Auto) (0.0-0.2) X10*3/uL Abs Immat Gran (auto) (0.00-0.03) X10*3/uL Absolute Neuts (auto) (2.0-8.3) X10*3/uL Absolute Nucleated RBC (0.0-0.012) X10*3/uL Nucleated RBC % (auto) (0.0-0.2) /100WBC PT (10.8-13.0) SEC INR (0.9-1.1) APTT (24.1-38.0) SEC Sodium (135-145) mmol/L Potassium (3.3-5.1) mmol/L Chloride (96-108) mmol/L Carbon Dioxide (22-29) mmol/L Anion Gap (12-20) BUN (9-16) mg/dL Creatinine (0.5-1.4) mg/dL Estim Creat Clear Calc Estimated GFR Random Glucose (60-115) mg/dL Lactic Acid (0.5-2.0) mmol/L Lactic Acid Fup @ 2Hr 2.3 H* (0.5-2.0) mmol/L Lactic Acid Fup @ 4Hr 2.0 (0.5-2.0) mmol/L Calcium (8.4-10.2) mg/dL Magnesium (1.6-2.6) mg/dL Total Bilirubin (0.0-1.0) mg/dL Direct Bilirubin (0.0-0.5) mg/dL AST (5-37) U/L ALT (0-40) U/L Alkaline Phosphatase (39-117) U/L Total Creatine Kinase (38-174) U/L B-Natriuretic Peptide (<100) pg/mL Total Protein (6.5-8.0) g/dL Albumin (3.5-5.0) g/dL Lipase (8-78) U/L Urine Color Urine Appearance Urine pH (5.0-8.0) Ur Specific [place] (1.005-1.025) Urine Protein (NEG-TRACE) MG/DL Urine Glucose (UA) (NEG) MG/DL Urine Ketones (NEG) MG/DL Urine Blood (NEG) Urine Nitrite (NEG) Ur Leukocyte Esterase (NEG) Urine RBC (0) /HPF Urine WBC (0-4) /HPF Ur Squamous Epith Cells /LPF Urine Bacteria /LPF Urine Mucus /LPF Urine Opiates Screen (Not Detect) Ur Barbiturates Screen (Not Detect) Ur Phencyclidine Scrn (Not Detect) Ur Amphetamines Screen (Not Detect) U Benzodiazepines Scrn (Not Detect) Urine Cocaine Screen (Not Detect) U Marijuana (THC) Screen (Not Detect) Ethyl Alcohol mg/dL <YAYA Geller - Last Filed: 08/26/20 02:02> Lab Results 08/25/20 08/25/20 08/25/20 Range/Units 19:29 19:30 19:30 WBC 8.7 (4.8-10.8) X10*3/uL RBC 3.68 L (4.60-5.80) X10*6/uL Hgb 11.5 L (14.0-18.0) g/dl Hct 34.8 L (42-52) % MCV 94.6 (80-98) fL MCH 31.3 (27.0-33.0) pg MCHC 33.0 (31.0-36.0) g/dl RDW 15.2 (11.0-16.0) % Plt Count 116 L (160-400) X10*3/uL MPV 9.7 (9.4-12.4) fL Immature Gran % (Auto) 0.3 (0.0-0.4) % Neut % (Auto) 72.5 (45-73) % Lymph % (Auto) 17.1 L (20-40) % Logan % (Auto) 9.2 (2-11) % Eos % (Auto) 0.6 (0-4) % Baso % (Auto) 0.3 (0-2) % Lymph # (Auto) 1.5 (1.2-4.9) X10*3/uL [place] # (Auto) 0.8 (0.1-1.2) X10*3/uL Eos # (Auto) 0.1 (0.0-0.4) X10*3/uL Baso # (Auto) 0.0 (0.0-0.2) X10*3/uL Abs Immat Gran (auto) 0.03 (0.00-0.03) X10*3/uL Absolute Neuts (auto) 6.3 (2.0-8.3) X10*3/uL Absolute Nucleated RBC 0.000 (0.0-0.012) X10*3/uL Nucleated RBC % (auto) 0.0 (0.0-0.2) /100WBC PT (10.8-13.0) SEC INR (0.9-1.1) APTT (24.1-38.0) SEC Sodium 138 (135-145) mmol/L Potassium 3.5 (3.3-5.1) mmol/L Chloride 102 (96-108) mmol/L Carbon Dioxide 22 (22-29) mmol/L Anion Gap 18 (12-20) BUN 4 L (9-16) mg/dL Creatinine 0.76 (0.5-1.4) mg/dL Estim Creat Clear Calc 135.4 Estimated GFR > 60 Random Glucose 322 H (60-115) mg/dL Lactic Acid 2.7 H* (0.5-2.0) mmol/L Lactic Acid Fup @ 2Hr (0.5-2.0) mmol/L Lactic Acid Fup @ 4Hr (0.5-2.0) mmol/L Calcium 9.1 (8.4-10.2) mg/dL Magnesium 1.5 L (1.6-2.6) mg/dL Total Bilirubin 1.0 (0.0-1.0) mg/dL Direct Bilirubin 0.4 (0.0-0.5) mg/dL AST 40 H (5-37) U/L ALT 27 (0-40) U/L Alkaline Phosphatase 115 (39-117) U/L Total Creatine Kinase (38-174) U/L B-Natriuretic Peptide (<100) pg/mL Total Protein 7.5 (6.5-8.0) g/dL Albumin 3.8 (3.5-5.0) g/dL Lipase 10 (8-78) U/L Urine Color Urine Appearance Urine pH (5.0-8.0) Ur Specific [place] (1.005-1.025) Urine Protein (NEG-TRACE) MG/DL Urine Glucose (UA) (NEG) MG/DL Urine Ketones (NEG) MG/DL Urine Blood (NEG) Urine Nitrite (NEG) Ur Leukocyte Esterase (NEG) Urine RBC (0) /HPF Urine WBC (0-4) /HPF Ur Squamous Epith Cells /LPF Urine Bacteria /LPF Urine Mucus /LPF Urine Opiates Screen (Not Detect) Ur Barbiturates Screen (Not Detect) Ur Phencyclidine Scrn (Not Detect) Ur Amphetamines Screen (Not Detect) U Benzodiazepines Scrn (Not Detect) Urine Cocaine Screen (Not Detect) U Marijuana (THC) Screen (Not Detect) Ethyl Alcohol mg/dL 08/25/20 08/25/20 08/25/20 Range/Units 19:30 19:30 19:30 WBC (4.8-10.8) X10*3/uL RBC (4.60-5.80) X10*6/uL Hgb (14.0-18.0) g/dl Hct (42-52) % MCV (80-98) fL MCH (27.0-33.0) pg MCHC (31.0-36.0) g/dl RDW (11.0-16.0) % Plt Count (160-400) X10*3/uL MPV (9.4-12.4) fL Immature Gran % (Auto) (0.0-0.4) % Neut % (Auto) (45-73) % Lymph % (Auto) (20-40) % Logan % (Auto) (2-11) % Eos % (Auto) (0-4) % Baso % (Auto) (0-2) % Lymph # (Auto) (1.2-4.9) X10*3/uL Logan # (Auto) (0.1-1.2) X10*3/uL Eos # (Auto) (0.0-0.4) X10*3/uL Baso # (Auto) (0.0-0.2) X10*3/uL Abs Immat Gran (auto) (0.00-0.03) X10*3/uL Absolute Neuts (auto) (2.0-8.3) X10*3/uL Absolute Nucleated RBC (0.0-0.012) X10*3/uL Nucleated RBC % (auto) (0.0-0.2) /100WBC PT 15.3 H (10.8-13.0) SEC INR 1.3 H (0.9-1.1) APTT 38.6 H (24.1-38.0) SEC Sodium (135-145) mmol/L Potassium (3.3-5.1) mmol/L Chloride (96-108) mmol/L Carbon Dioxide (22-29) mmol/L Anion Gap (12-20) BUN (9-16) mg/dL Creatinine (0.5-1.4) mg/dL Estim Creat Clear Calc Estimated GFR Random Glucose (60-115) mg/dL Lactic Acid (0.5-2.0) mmol/L Lactic Acid Fup @ 2Hr (0.5-2.0) mmol/L Lactic Acid Fup @ 4Hr (0.5-2.0) mmol/L Calcium (8.4-10.2) mg/dL Magnesium (1.6-2.6) mg/dL Total Bilirubin (0.0-1.0) mg/dL Direct Bilirubin (0.0-0.5) mg/dL AST (5-37) U/L ALT (0-40) U/L Alkaline Phosphatase (39-117) U/L Total Creatine Kinase (38-174) U/L B-Natriuretic Peptide 239 H (<100) pg/mL Total Protein (6.5-8.0) g/dL Albumin (3.5-5.0) g/dL Lipase (8-78) U/L Urine Color Urine Appearance Urine pH (5.0-8.0) Ur Specific [place] (1.005-1.025) Urine Protein (NEG-TRACE) MG/DL Urine Glucose (UA) (NEG) MG/DL Urine Ketones (NEG) MG/DL Urine Blood (NEG) Urine Nitrite (NEG) Ur Leukocyte Esterase (NEG) Urine RBC (0) /HPF Urine WBC (0-4) /HPF Ur Squamous Epith Cells /LPF Urine Bacteria /LPF Urine Mucus /LPF Urine Opiates Screen (Not Detect) Ur Barbiturates Screen (Not Detect) Ur Phencyclidine Scrn (Not Detect) Ur Amphetamines Screen (Not Detect) U Benzodiazepines Scrn (Not Detect) Urine Cocaine Screen (Not Detect) U Marijuana (THC) Screen (Not Detect) Ethyl Alcohol 303 H* mg/dL 08/25/20 08/25/20 08/25/20 Range/Units 19:30 21:31 21:32 WBC (4.8-10.8) X10*3/uL RBC (4.60-5.80) X10*6/uL Hgb (14.0-18.0) g/dl Hct (42-52) % MCV (80-98) fL MCH (27.0-33.0) pg MCHC (31.0-36.0) g/dl RDW (11.0-16.0) % Plt Count (160-400) X10*3/uL MPV (9.4-12.4) fL Immature Gran % (Auto) (0.0-0.4) % Neut % (Auto) (45-73) % Lymph % (Auto) (20-40) % [place] % (Auto) (2-11) % Eos % (Auto) (0-4) % Baso % (Auto) (0-2) % Lymph # (Auto) (1.2-4.9) X10*3/uL [place] # (Auto) (0.1-1.2) X10*3/uL Eos # (Auto) (0.0-0.4) X10*3/uL Baso # (Auto) (0.0-0.2) X10*3/uL Abs Immat Gran (auto) (0.00-0.03) X10*3/uL Absolute Neuts (auto) (2.0-8.3) X10*3/uL Absolute Nucleated RBC (0.0-0.012) X10*3/uL Nucleated RBC % (auto) (0.0-0.2) /100WBC PT (10.8-13.0) SEC INR (0.9-1.1) APTT (24.1-38.0) SEC Sodium (135-145) mmol/L Potassium (3.3-5.1) mmol/L Chloride (96-108) mmol/L Carbon Dioxide (22-29) mmol/L Anion Gap (12-20) BUN (9-16) mg/dL Creatinine (0.5-1.4) mg/dL Estim Creat Clear Calc Estimated GFR Random Glucose (60-115) mg/dL Lactic Acid (0.5-2.0) mmol/L Lactic Acid Fup @ 2Hr (0.5-2.0) mmol/L Lactic Acid Fup @ 4Hr (0.5-2.0) mmol/L Calcium (8.4-10.2) mg/dL Magnesium (1.6-2.6) mg/dL Total Bilirubin (0.0-1.0) mg/dL Direct Bilirubin (0.0-0.5) mg/dL AST (5-37) U/L ALT (0-40) U/L Alkaline Phosphatase (39-117) U/L Total Creatine Kinase 200 H (38-174) U/L B-Natriuretic Peptide (<100) pg/mL Total Protein (6.5-8.0) g/dL Albumin (3.5-5.0) g/dL Lipase (8-78) U/L Urine Color YELLOW Urine Appearance CLEAR Urine pH 5.5 (5.0-8.0) Ur Specific [place] <= 1.005 (1.005-1.025) Urine Protein 2+ H (NEG-TRACE) MG/DL Urine Glucose (UA) >=1000 H (NEG) MG/DL Urine Ketones NEG (NEG) MG/DL Urine Blood 2+ H (NEG) Urine Nitrite NEG (NEG) Ur Leukocyte Esterase NEG (NEG) Urine RBC 1-4 (0) /HPF Urine WBC 1-4 (0-4) /HPF Ur Squamous Epith Cells TRACE /LPF Urine Bacteria NONE /LPF Urine Mucus TRACE /LPF Urine Opiates Screen Not Detected (Not Detect) Ur Barbiturates Screen POSITIVE H (Not Detect) Ur Phencyclidine Scrn Not Detected (Not Detect) Ur Amphetamines Screen Not Detected (Not Detect) U Benzodiazepines Scrn Not Detected (Not Detect) Urine Cocaine Screen Not Detected (Not Detect) U Marijuana (THC) Screen Not Detected (Not Detect) Ethyl Alcohol mg/dL 08/25/20 08/26/20 Range/Units 22:27 01:04 WBC (4.8-10.8) X10*3/uL RBC (4.60-5.80) X10*6/uL Hgb (14.0-18.0) g/dl Hct (42-52) % MCV (80-98) fL MCH (27.0-33.0) pg MCHC (31.0-36.0) g/dl RDW (11.0-16.0) % Plt Count (160-400) X10*3/uL MPV (9.4-12.4) fL Immature Gran % (Auto) (0.0-0.4) % Neut % (Auto) (45-73) % Lymph % (Auto) (20-40) % [place] % (Auto) (2-11) % Eos % (Auto) (0-4) % Baso % (Auto) (0-2) % Lymph # (Auto) (1.2-4.9) X10*3/uL [place] # (Auto) (0.1-1.2) X10*3/uL Eos # (Auto) (0.0-0.4) X10*3/uL Baso # (Auto) (0.0-0.2) X10*3/uL Abs Immat Gran (auto) (0.00-0.03) X10*3/uL Absolute Neuts (auto) (2.0-8.3) X10*3/uL Absolute Nucleated RBC (0.0-0.012) X10*3/uL Nucleated RBC % (auto) (0.0-0.2) /100WBC PT (10.8-13.0) SEC INR (0.9-1.1) APTT (24.1-38.0) SEC Sodium (135-145) mmol/L Potassium (3.3-5.1) mmol/L Chloride (96-108) mmol/L Carbon Dioxide (22-29) mmol/L Anion Gap (12-20) BUN (9-16) mg/dL Creatinine (0.5-1.4) mg/dL Estim Creat Clear Calc Estimated GFR Random Glucose (60-115) mg/dL Lactic Acid (0.5-2.0) mmol/L Lactic Acid Fup @ 2Hr 2.3 H* (0.5-2.0) mmol/L Lactic Acid Fup @ 4Hr 2.0 (0.5-2.0) mmol/L Calcium (8.4-10.2) mg/dL Magnesium (1.6-2.6) mg/dL Total Bilirubin (0.0-1.0) mg/dL Direct Bilirubin (0.0-0.5) mg/dL AST (5-37) U/L ALT (0-40) U/L Alkaline Phosphatase (39-117) U/L Total Creatine Kinase (38-174) U/L B-Natriuretic Peptide (<100) pg/mL Total Protein (6.5-8.0) g/dL Albumin (3.5-5.0) g/dL Lipase (8-78) U/L Urine Color Urine Appearance Urine pH (5.0-8.0) Ur Specific [place] (1.005-1.025) Urine Protein (NEG-TRACE) MG/DL Urine Glucose (UA) (NEG) MG/DL Urine Ketones (NEG) MG/DL Urine Blood (NEG) Urine Nitrite (NEG) Ur Leukocyte Esterase (NEG) Urine RBC (0) /HPF Urine WBC (0-4) /HPF Ur Squamous Epith Cells /LPF Urine Bacteria /LPF Urine Mucus /LPF Urine Opiates Screen (Not Detect) Ur Barbiturates Screen (Not Detect) Ur Phencyclidine Scrn (Not Detect) Ur Amphetamines Screen (Not Detect) U Benzodiazepines Scrn (Not Detect) Urine Cocaine Screen (Not Detect) U Marijuana (THC) Screen (Not Detect) Ethyl Alcohol mg/dL <Kayla Su MD - Last Filed: 08/26/20 06:45> ECG Data Attestation: I personally reviewed and interpreted this ECG as follows: <YAYA Geller - Last Filed: 08/26/20 02:02> ECG interpretation date: 08/25/20 <YAYA Geller - Last Filed: 08/26/20 02:02> ECG interpretation time: 22:23 <YAYA Geller - Last Filed: 08/26/20 02:02> Interpretation: EKG AFib with rate of 106. Nonischemic/no STEMI <YAYA Geller - Last Filed: 08/26/20 02:02> Discharge Plan Discharge Clinical Impression: Fall Alcoholic intoxication Qualifiers: Complication of substance-induced condition: with unspecified complication Qualified Code(s): F10.929 - Alcohol use, unspecified with intoxication, unsp ecified <YAYA Geller - Last Filed: 08/26/20 02:02> Patient Disposition: Home, Self-Care <YAYA Geller - Last Filed: 08/26/20 02:02> Instructions: Abuse of Alcohol (ED), Fall Prevention (ED) <YAYA Geller Last Filed: 08/26/20 02:02> Additional Instructions: Dont drink alcohol it is bad for you, it can kill you You need to take all your home prescribed medications <YAYA Geller Last Filed: 08/26/20 02:02> Prescriptions: No Action tamsulosin 0.4 mg Capsule 0.4 mg PO DAILY RF: 0 fluoxetine 20 mg Capsule 20 mg PO DAILY RF: 0 magnesium oxide 400 mg (241.3 mg magnesium) tablet 800 mg PO BID Qty: 20 RF: 0 trazodone 50 mg tablet 1 tab PO BEDTIME RF: 0 gabapentin 400 mg capsule 1 cap PO TID RF: 0 metformin 1,000 mg tablet 1 tab PO BID RF: 0 Lantus Solostar U-100 Insulin 100 unit/mL (3 mL) insulin pen 6 unit subcut QAM RF: 0 terbinafine HCl 1 % Cream 1 appl TOPICAL BID RF: 0 cholecalciferol (vitamin D3) 50 mcg (2,000 unit) Tablet 50 mcg PO DAILY RF: 0 ammonium lactate 12 % cream 1 appl topical BID RF: 0 acamprosate 333 mg Tablet,Delayed Release (Dr/Ec) 666 mg PO TID RF: 0 apixaban 5 mg Tablet 5 mg PO BID RF: 0 folic acid 1 mg Tablet 1 mg PO DAILY RF: 0 Slow-Mag 71.5 mg Tablet,Delayed Release (Dr/Ec) 71.5 mg PO DAILY RF: 0 dexamethasone [Decadron] 6 mg tablet 6 mg PO DAILY Qty: 9 RF: 0 multivitamin [One Daily Multivitamin] Tablet 1 tab PO DAILY RF: 0 furosemide 40 mg tablet 40 mg PO BID RF: 0 atorvastatin 40 mg tablet 40 mg PO BEDTIME RF: 0 metoprolol succinate 50 mg tablet extended release 24 hr 50 mg PO DAILY RF: 0 thiamine HCl (vitamin B1) 100 mg tablet 100 mg PO DAILY RF: 0 aspirin 81 mg tablet,delayed release (DR/EC) 81 mg PO DAILY RF: 0 spironolactone 25 mg tablet 25 mg PO DAILY RF: 0 <YAYA Geller - Last Filed: 08/26/20 02:02> Referrals: ED Physician,Generic [Emergency Provider] - 2 days <YAYA Geller - Last Filed: 08/26/20 02:02>
[2020-08-25] MEDS: 0.9 % Sodium Chloride 1,000 ML 999 ML IVCONT ×2 (21:19→23:58)
[2020-08-25] MEDS: Magnesium Sulfate/H2O 2 GM/50 ML PIGGYBACK IV (21:26)
[2020-08-25 21:33] LABS: Reflex Lactate? Lactic Acid Added
--- NOTE | 2020-08-25 21:55 | ECG_ITS ---
Test Reason : SUBSTANCE ABUSE Blood Pressure : / mmHG Vent. Rate : 106 BPM Atrial Rate : 104 BPM P-R Int : 000 ms QRS Dur : 102 ms QT Int : 396 ms P-R-T Axes : 000 -72 082 degrees QTc Int : 526 ms Atrial fibrillation with rapid ventricular response Left axis deviation Inferior infarct (cited on or before 02-JUL-2016) Possible Anterior infarct (cited on or before 02-JUL-2016) Prolonged QT Abnormal ECG When compared with ECG of 24-AUG-2020 15:40, No significant change was found Referred By: Alee Pritchard Electronically Signed By:ADRIANA CORRAL
[2020-08-25 22:07] LABS: Glucose Urine UA >=1000 MG/DL (NEG); Leukocyte Esterase Urine NEG (NEG); Nitrite Urine NEG (NEG); PH 5.5 (5.0-8.0); Specific Gravity - Urine <= 1.005 (1.005-1.025); Urine Blood 2+ (NEG); Urine Ketones NEG (NEG); Urine Protein 2+ MG/DL (NEG-TRACE)
[2020-08-25 22:10] LABS: Appearance Urine CLEAR; Color Urine YELLOW
[2020-08-25 22:21] LABS: Amphetamine Screen Urine Not Detected (Not Detect); Barbiturates, Urine POSITIVE (Not Detect); Benzodiazepines Screen Urine Not Detected (Not Detect); Cannabinoid Screen Urine Not Detected (Not Detect); Cocaine Screen Urine Not Detected (Not Detect); Opiate Screen Urine Not Detected (Not Detect); Phencyclidine Screen Urine Not Detected (Not Detect)
[2020-08-25 22:24] LABS: Mucus Urine TRACE /LPF; Squamous Epithelial Cell Urine TRACE /LPF
[2020-08-25 22:26] VITALS: BP 145/97; PULSE 107; RESP 20; TEMP 36.7; O2SAT 95
[2020-08-25 23:01] LABS: ~Lactic Acid-LAB USE ONLY 2.3 mmol/L (0.5-2.0)
[2020-08-25 23:58] VITALS: BP 144/82; PULSE 113; RESP 16; O2SAT 98
[2020-08-26] VITALS (9 sets, daily range): BP systolic 128–175; BP diastolic 85–112; PULSE 107–122; RESP 18–23; TEMP 37–37.1; O2SAT 95–99
--- NOTE | 2020-08-26 00:05 | PC.NURSE ---
pt has moments where he will desat to 88% on room air, remains asymptomatic and recovers quickly (98% room air). per PROSPER Nevarez) ok to apply 2L o2 via nasal cannula.
[2020-08-26 00:30] LABS: Reflex Lactate? 2 Y
[2020-08-26] MEDS: Metoprolol Succinate ER 50 MG TAB.ER.24H PO (06:57)
[2020-08-26] MEDS: Metoprolol Tartrate 5 MG/5 ML VIAL IVPUSH ×2 (07:43→08:16)
[2020-08-26] MEDS: Furosemide 40 MG TABLET PO (08:17)
[2020-08-26] MEDS: Spironolactone 25 MG TABLET PO (08:17)
[2020-08-26] MEDS: Apixaban 5 MG TABLET PO (08:17)
== END 2020-08-26 09:20 | disposition home or self-care (01) ==
PROVIDERS: Physician Assistant; Emergency Provider Emergency Medicine
DX: F10.129 Alcohol abuse with intoxication, unspecified (principal); M79.605 Pain in left leg; M79.604 Pain in right leg; G44.309 Post-traumatic headache, unspecified, not intractable; M54.2 Cervicalgia; I10 Essential (primary) hypertension; I25.10 Atherosclerotic heart disease of native coronary artery without angina pectoris; Y90.8 Blood alcohol level of 240 mg/100 ml or more; Z79.899 Other long term (current) drug therapy; Z71.51 Drug abuse counseling and surveillance of drug abuser
CPT/HCPCS: 36415; 70450; 71260; 72125; 74177; 80048; 80076; 80307; 80320; 81001; 82550; 83605; 83690; 83735; 83880; 85025; 85610; 85730; 93005; 99285; J3475; Q9967

== ENCOUNTER 2020-08-27 06:23 | Inpatient (IN) | payer MEDICARE, MEDICAID, SELFPAY ==
[2020-08-27] VITALS (9 sets, daily range): BP systolic 118–158; BP diastolic 77–98; PULSE 97–113; RESP 18–21; TEMP 36.1–37.1; O2SAT 96–98; BMI 30.4
--- NOTE | ~2020-08-27 | CT_ITS ---
EXAMINATION: CT ANGIOGRAM OF THE CHEST WITH AND WITHOUT CONTRAST (CT PULMONARY ANGIOGRAM FOR PE) CLINICAL INFORMATION: Reason for Exam Pleuritic CP, back pain, high troponin, r/o PE, dissection COMPARISON: Chest CTA dated 05/02/2020. TECHNIQUE: Prior to contrast administration, noncontrast localization images were obtained. Subsequently, multidetector volumetric imaging was performed from the thoracic inlet to below the diaphragms following the administration of 80 mL Omnipaque 350 intravenous contrast. No contrast reaction reported Sagittal, coronal, and MIP oblique sagittal reformatted images were obtained on the CT workstation, uploaded to PACS, and reviewed. This CT examination was performed using dose optimization techniques as appropriate, variously including the following: *Automated exposure control *Adjustment of mA and/or kV according to patient size (this includes techniques or standardized protocols for targeted exams where dose is matched to indication/reason for exam; i.e. extremities or head) *Use of iterative reconstruction technique Total exam dose-length product 220 mGy-cm FINDINGS: QUALITY OF STUDY/CONTRAST BOLUS: Satisfactory. Pulmonary Arteries: There is no central, segmental or subsegmental pulmonary embolism. Lingular pulmonary artery range hypoattenuation (5:29) is not confirmed on the coronal and sagittal images and volume averaging favored. The main pulmonary artery is normal in caliber. Lungs and pleural spaces: Groundglass opacities in a peripheral distribution in the right upper lobe right lower lobe are noted. Patchy groundglass opacities right middle lobe appreciated. Left lung is relatively clear. There is no discrete pulmonary nodule or mass. The central tracheobronchial tree is patent. Is no pneumothorax. Small right pleural effusion noted. Thoracic lymph nodes: There is no hilar, mediastinal or axillary lymphadenopathy. Cardiovascular, mediastinal structures and thyroid: The heart is normal in size. Mild coronary vascular calcifications. There is no pericardial effusion. The thoracic aorta is normal in diameter without evidence of aneurysm. The visualized thyroid gland is within normal limits. The esophagus appears unremarkable. Skeletal, diaphragm and chest wall: The visible osseous structures are unremarkable. The subcutaneous tissues are unremarkable. Upper abdomen: The visualized liver, gallbladder, pancreas, spleen, adrenal glands, and left kidney are unremarkable. The proximal stomach and visualized upper abdominal bowel loops are poorly evaluated but appear unremarkable. CT/CT angio chest PE protocol Impression: 1. No evidence of central, lobar, or segmental pulmonary embolus. 2. Groundglass opacities in the periphery of the right upper and lower lobe and within the middle lobe sequelae of viral pneumonitis given patient's provided history. Left lung is relatively clear. 3. Small right pleural effusion. 4. Mild coronary vascular disease. 5. No evidence of aortic dissection. VTE: negative
--- NOTE | ~2020-08-27 | XR_ITS ---
EXAMINATION: XR CHEST CLINICAL INFORMATION: Chest pain. Shortness of breath. Covid positive. COMPARISON: 08/24/20. 08/18/20. TECHNIQUE: Frontal view of the chest was obtained. FINDINGS: Bilateral patchy opacity seen on the prior examinations are improved with residual patchy opacity still present. No new abnormality. No pleural effusion is demonstrated. The heart and mediastinal structures are unremarkable. XR/XR chest 1V IMPRESSION: Improving bilateral patchy airspace opacities.
--- NOTE | 2020-08-27 06:45 | ECG_ITS ---
Test Reason : ETOH Blood Pressure : / mmHG Vent. Rate : 104 BPM Atrial Rate : 100 BPM P-R Int : 000 ms QRS Dur : 094 ms QT Int : 298 ms P-R-T Axes : 000 -75 092 degrees QTc Int : 391 ms Atrial fibrillation with rapid ventricular response with premature ventricular or aberrantly conducted complexes Left axis deviation Cannot rule out Inferior infarct (cited on or before 02-JUL-2016) Cannot rule out anterior infarct Abnormal ECG When compared with ECG of 25-AUG-2020 22:23, Nonspecific T wave abnormality now evident in Inferior leads Nonspecific T wave abnormality now evident in Anterior leads QT has shortened PVC present Referred By: Malcolm Cardenas Electronically Signed By:David Ernandez
--- NOTE | 2020-08-27 06:48 | ED.GENADULT ---
HPI - General Adult General Chief complaint: ETOH/Substance Use Stated complaint: ? Time Seen by Provider: 08/27/20 06:29 Source: patient Mode of arrival: EMS Limitations: language barrier (Indian speaking only, interpreter deaf was used to obtain information.) History of Present Illness HPI narrative: 59-year-old male who presents emergency department for evaluation of chest pain, shortness of breath, weakness and diarrhea. This is the patient's 3rd ED visit in 4 days (he was seen on 08/24/2020, 08/25/2020 for similar complaints and alcohol intoxication). The patient was seen in the emergency department on 08/18/2020 for rapid AFib, alcohol intoxication, alcohol withdrawal. He tested COVID-19 positive and was admitted to the hospital for 1 day and then discharged home.He states that over the last 24 hours he has had frequent episodes of loose, yellow diarrheal stools. He feels short of breath. He complains of anterior chest pain which is intermittent, worse with breathing and worse with movement. The pain is moderate to severe in intensity. He states he has felt hot and cold but did not take his temperature pain. He has an occasional, nonproductive cough. He denied nausea or vomiting. He states that he is feeling very weak.The patient is homeless. Related Data Home Medications Medication Instructions Recorded Confirmed aspirin 81 mg PO DAILY 01/22/20 08/18/20 atorvastatin 40 mg PO BEDTIME 01/22/20 08/18/20 furosemide 40 mg PO BID 01/22/20 08/18/20 metoprolol succinate 50 mg PO DAILY 01/22/20 08/18/20 multivitamin [One Daily 1 tab PO DAILY 01/22/20 08/18/20 Multivitamin] spironolactone 25 mg PO DAILY 01/22/20 08/18/20 thiamine HCl (vitamin B1) 100 mg PO DAILY 01/22/20 08/18/20 fluoxetine 20 mg PO DAILY 05/02/20 08/18/20 tamsulosin 0.4 mg PO DAILY 05/02/20 08/18/20 Lantus Solostar U-100 Insulin 6 unit SUBCUT QAM 08/18/20 08/18/20 Slow-Mag 71.5 mg PO DAILY 08/18/20 08/18/20 acamprosate 666 mg PO TID 08/18/20 08/18/20 ammonium lactate 1 appl TOPICAL BID 08/18/20 08/18/20 apixaban 5 mg PO BID 08/18/20 08/18/20 cholecalciferol (vitamin D3) 50 mcg PO DAILY 08/18/20 08/18/20 folic acid 1 mg PO DAILY 08/18/20 08/18/20 gabapentin 1 cap PO TID 08/18/20 08/18/20 metformin 1 tab PO BID 08/18/20 08/18/20 terbinafine HCl 1 appl TOPICAL BID 08/18/20 08/18/20 trazodone 1 tab PO BEDTIME 08/18/20 08/18/20 Previous Rx's Medication Instructions Recorded magnesium oxide 800 mg PO BID #20 tab 05/05/20 dexamethasone [Decadron] 6 mg PO DAILY #9 tab 08/19/20 Allergies Allergy/AdvReac Type Severity Reaction Status Date / Time Penicillins [PCN] Allergy Unknown UNKNOWN Verified 08/24/20 15:20 Review of Systems Review of Systems: Yes all other systems are reviewed and are negative Neurologic: Reports Abnormal speech present [facility] Past Medical History [facility] Narrative: The patient is homeless. He denies tobacco use. The patient does drink alcohol daily, he believes they drink 5 beers last night. He denies drug use. Medical History A-fib CAD (coronary artery disease) Cardiomyopathy CHF (congestive heart failure) Cirrhosis Depression Diabetes ETOH abuse HTN (hypertension) Social History Social History Household Members: None Housing: Apartment Alcohol intake: current Alcohol intake frequency: 3 or more drinks per day Alcohol type: beer Smoking Status: Never smoker Use of substances other than those prescribed or required for medical reasons: No Advance Directives: No Advance Directives Information Provided: No service: No Current occupational status: unemployed Physical Exam Vital Signs: Vital Signs: Last Vital Signs Temp 97.9 F 08/27/20 14:15 Pulse 103 H 08/27/20 14:15 Resp 20 08/27/20 14:15 BP 150/94 H 08/27/20 14:15 Pulse Ox 96 08/27/20 14:15 Body Mass Index 30.4 Const: General: cooperative Orientation/consciousness: oriented to person and oriented to place Limitations: no limitations (Patient speaks Indian only, interpreter deaf used) HENMT: Head: Yes normal to inspection, Yes normocephalic and Yes atraumatic Ears: external ears normal General nose exam: Normal external nose present Face and sinus: Yes normal facial exam Mouth: moist mucous membranes abnormal (Dry) Throat: Yes posterior oropharynx normal Eyes: Periorbital: periorbital findings normal Eyelids: Yes eyelids normal Conjunctivae: conjunctivae normal Sclerae: sclerae normal Corneas: corneas normal Pupils: Equal, round and reactive pupils present Direct Ophthalmoscopy: normal light reflex Neck: Neck: Yes full ROM, Yes no lymphadenopathy, Yes no meningeal signs, Yes trachea midline and Yes supple Chest: Chest palpation & inspection: normal inspection of the chest and normal palpation of entire chest wall Resp: Effort & Inspection: normal respiratory effort and able to speak in complete sentences Auscultation: clear to auscultation bilaterally Cardio: Rate: tachycardic Rhythm: regular rhythm Heart sounds: S1 normal heart sound present, S2 normal heart sound present and no murmurs GI: Inspection: Yes normal to inspection Palpation (GI): Soft to palpation, nontender, no guarding, not rigid and No hepatosplenomegaly present : General: Yes no CVA tenderness Back/Spine/Pelvis: Back: no CVA tenderness Cervical Spine: normal cervical lordosis Thoracic/Lumbar Spine: thoracic and lumbar spine normal to inspection Skin: Lesions: no lesions Rashes: other (Brawny changes to lower extremity skin) Wounds: no wounds Neuro: General: oriented to person, oriented to place and no meningeal signs Cranial nerves: Yes Equal, round and reactive pupils present Cognition (Neuro): normal cognition Speech: Abnormal speech present Motor exam (neuro): 5/5 motor strength present throughout Extrem: General: Yes normal to inspection, Yes full ROM and Yes other (Trace pitting edema, symmetric) Psych: Appearance: disheveled (Clothes are covered in diarrheal stool) Mental Status: mental status grossly normal Speech and movement: Normal speech and movement present Affect: normal affect Attitude: cooperative Thought process: Normal thought process present Thought content: Normal thought content present Course Course Course Narrative: 59-year-old male with multiple medical problems including hypertension, coronary disease, cardiomegaly, atrial fibrillation, CHF alcohol use disorder, cirrhosis who tested positive for COVID-19 on 08/18/2020 when he presented with atrial fibrillation with rapid ventricular response, was hospitalized for 1 day, the patient is homeless and presents to the emergency department with chest pain, shortness of breath, subjective fever, weakness, and severe diarrhea times 24 hours. Physical examination revealed that the patient was unkempt and covered and diarrheal stool, he was tachycardic otherwise exam was unremarkable. I did order a laboratory evaluation to include CBC, CMP, lactic acid, C diff, lipase, EKG, troponin, ETOH and chest x-ray. He was ordered to get normal saline IV x1 L. 1443: The patient's laboratory evaluation revealed anemia with an H&H of 10.9 and 33.0 with a low platelet count of a 586299, this is chronic. The patient had some nonspecific electrolyte abnormalities. His initial high sensitivity troponin was elevated at 95.9 is 3 hour troponin was elevated at 355. The patient also complained of back pain therefore a CT scan was obtained and there was no evidence of aortic dissection or pulmonary embolism. I did discuss the patient's presentation with the covering field administrative assistant who was able to look up the patient's past cardiac history, the patient did have a cardiac catheterization with RCA lesion requiring a stent in LAD lesion which was not stented. The field administrative assistant recommended that the patient be treated for an and STEMI with aspirin and Lovenox 1 milligram/kilogram q.12 hours and aspirin. However, the patient is prescribed apixaban it is unclear if he is taking his medication, given the potential interaction with Lovenox and apixaban, the patient will not receive Lovenox at this time. 1505: I did discuss the patient's presentation with the covering hospitalist, Aimee Vazquez, she admitted the patient last time and believes that the patient is not taking apixaban therefore I did order the Lovenox 90 mg subcutaneously for this patient. The patient will be admitted to the [facility] for further management of his NSTEMI. Medical Decision Making Lab Data Result diagrams: 08/27/20 07:48 08/27/20 09:02 Labs: Lab Results 08/27/20 08/27/20 08/27/20 Range/Units 07:41 07:48 07:48 WBC 6.1 (4.8-10.8) X10*3/uL RBC 3.49 L (4.60-5.80) X10*6/uL Hgb 10.9 L (14.0-18.0) g/dl Hct 33.0 L (42-52) % MCV 94.6 (80-98) fL MCH 31.2 (27.0-33.0) pg MCHC 33.0 (31.0-36.0) g/dl RDW 15.1 (11.0-16.0) % Plt Count 103 L (160-400) X10*3/uL MPV 10.8 (9.4-12.4) fL Immature Gran % (Auto) 0.7 H (0.0-0.4) % Neut % (Auto) 71.2 (45-73) % Lymph % (Auto) 15.8 L (20-40) % Lassen % (Auto) 11.3 H (2-11) % Eos % (Auto) 0.8 (0-4) % Baso % (Auto) 0.2 (0-2) % Lymph # (Auto) 1.0 L (1.2-4.9) X10*3/uL Lassen # (Auto) 0.7 (0.1-1.2) X10*3/uL Eos # (Auto) 0.1 (0.0-0.4) X10*3/uL Baso # (Auto) 0.0 (0.0-0.2) X10*3/uL Abs Immat Gran (auto) 0.04 H (0.00-0.03) X10*3/uL Absolute Neuts (auto) 4.4 (2.0-8.3) X10*3/uL Absolute Nucleated RBC 0.000 (0.0-0.012) X10*3/uL Nucleated RBC % (auto) 0.0 (0.0-0.2) /100WBC PT 16.1 H (10.8-13.0) SEC INR 1.4 H (0.9-1.1) APTT 35.9 (24.1-38.0) SEC Sodium (135-145) mmol/L Potassium (3.3-5.1) mmol/L Chloride (96-108) mmol/L Carbon Dioxide (22-29) mmol/L Anion Gap (12-20) BUN (9-16) mg/dL Creatinine (0.5-1.4) mg/dL Estim Creat Clear Calc Estimated GFR POC Glucose 196 H (60-115) mg/dL Random Glucose (60-115) mg/dL Lactic Acid (0.5-2.0) mmol/L Lactic Acid Fup @ 2Hr (0.5-2.0) mmol/L Calcium (8.4-10.2) mg/dL Total Bilirubin (0.0-1.0) mg/dL AST (5-37) U/L ALT (0-40) U/L Alkaline Phosphatase (39-117) U/L Troponin I High Sens (<3.5-35.0) ng/L B-Natriuretic Peptide (<100) pg/mL Total Protein (6.5-8.0) g/dL Albumin (3.5-5.0) g/dL Lipase (8-78) U/L Urine Color Urine Appearance Urine pH (5.0-8.0) Ur Specific [place] (1.005-1.025) Urine Protein (NEG-TRACE) MG/DL Urine Glucose (UA) (NEG) MG/DL Urine Ketones (NEG) MG/DL Urine Blood (NEG) Urine Nitrite (NEG) Ur Leukocyte Esterase (NEG) Urine RBC (0) /HPF Urine WBC (0-4) /HPF Ur Squamous Epith Cells /LPF Amorphous Sediment /LPF Urine Bacteria /LPF Hyaline Casts /LPF Urine Opiates Screen (Not Detect) Ur Barbiturates Screen (Not Detect) Ur Phencyclidine Scrn (Not Detect) Ur Amphetamines Screen (Not Detect) U Benzodiazepines Scrn (Not Detect) Urine Cocaine Screen (Not Detect) U Marijuana (THC) Screen (Not Detect) Ethyl Alcohol mg/dL 08/27/20 08/27/20 08/27/20 Range/Units 07:48 07:49 07:49 WBC (4.8-10.8) X10*3/uL RBC (4.60-5.80) X10*6/uL Hgb (14.0-18.0) g/dl Hct (42-52) % MCV (80-98) fL MCH (27.0-33.0) pg MCHC (31.0-36.0) g/dl RDW (11.0-16.0) % Plt Count (160-400) X10*3/uL MPV (9.4-12.4) fL Immature Gran % (Auto) (0.0-0.4) % Neut % (Auto) (45-73) % Lymph % (Auto) (20-40) % Lassen % (Auto) (2-11) % Eos % (Auto) (0-4) % Baso % (Auto) (0-2) % Lymph # (Auto) (1.2-4.9) X10*3/uL Lassen # (Auto) (0.1-1.2) X10*3/uL Eos # (Auto) (0.0-0.4) X10*3/uL Baso # (Auto) (0.0-0.2) X10*3/uL Abs Immat Gran (auto) (0.00-0.03) X10*3/uL Absolute Neuts (auto) (2.0-8.3) X10*3/uL Absolute Nucleated RBC (0.0-0.012) X10*3/uL Nucleated RBC % (auto) (0.0-0.2) /100WBC PT (10.8-13.0) SEC INR (0.9-1.1) APTT (24.1-38.0) SEC Sodium (135-145) mmol/L Potassium (3.3-5.1) mmol/L Chloride (96-108) mmol/L Carbon Dioxide (22-29) mmol/L Anion Gap (12-20) BUN (9-16) mg/dL Creatinine (0.5-1.4) mg/dL Estim Creat Clear Calc Estimated GFR POC Glucose (60-115) mg/dL Random Glucose (60-115) mg/dL Lactic Acid 3.0 H* (0.5-2.0) mmol/L Lactic Acid Fup @ 2Hr (0.5-2.0) mmol/L Calcium (8.4-10.2) mg/dL Total Bilirubin (0.0-1.0) mg/dL AST (5-37) U/L ALT (0-40) U/L Alkaline Phosphatase (39-117) U/L Troponin I High Sens 95.9 H D (<3.5-35.0) ng/L B-Natriuretic Peptide 294 H (<100) pg/mL Total Protein (6.5-8.0) g/dL Albumin (3.5-5.0) g/dL Lipase (8-78) U/L Urine Color Urine Appearance Urine pH (5.0-8.0) Ur Specific [place] (1.005-1.025) Urine Protein (NEG-TRACE) MG/DL Urine Glucose (UA) (NEG) MG/DL Urine Ketones (NEG) MG/DL Urine Blood (NEG) Urine Nitrite (NEG) Ur Leukocyte Esterase (NEG) Urine RBC (0) /HPF Urine WBC (0-4) /HPF Ur Squamous Epith Cells /LPF Amorphous Sediment /LPF Urine Bacteria /LPF Hyaline Casts /LPF Urine Opiates Screen (Not Detect) Ur Barbiturates Screen (Not Detect) Ur Phencyclidine Scrn (Not Detect) Ur Amphetamines Screen (Not Detect) U Benzodiazepines Scrn (Not Detect) Urine Cocaine Screen (Not Detect) U Marijuana (THC) Screen (Not Detect) Ethyl Alcohol mg/dL 08/27/20 08/27/20 08/27/20 Range/Units 09:02 09:02 09:46 WBC (4.8-10.8) X10*3/uL RBC (4.60-5.80) X10*6/uL Hgb (14.0-18.0) g/dl Hct (42-52) % MCV (80-98) fL MCH (27.0-33.0) pg MCHC (31.0-36.0) g/dl RDW (11.0-16.0) % Plt Count (160-400) X10*3/uL MPV (9.4-12.4) fL Immature Gran % (Auto) (0.0-0.4) % Neut % (Auto) (45-73) % Lymph % (Auto) (20-40) % Lassen % (Auto) (2-11) % Eos % (Auto) (0-4) % Baso % (Auto) (0-2) % Lymph # (Auto) (1.2-4.9) X10*3/uL Lassen # (Auto) (0.1-1.2) X10*3/uL Eos # (Auto) (0.0-0.4) X10*3/uL Baso # (Auto) (0.0-0.2) X10*3/uL Abs Immat Gran (auto) (0.00-0.03) X10*3/uL Absolute Neuts (auto) (2.0-8.3) X10*3/uL Absolute Nucleated RBC (0.0-0.012) X10*3/uL Nucleated RBC % (auto) (0.0-0.2) /100WBC PT (10.8-13.0) SEC INR (0.9-1.1) APTT (24.1-38.0) SEC Sodium 132 L (135-145) mmol/L Potassium 3.5 (3.3-5.1) mmol/L Chloride 100 (96-108) mmol/L Carbon Dioxide 18 L (22-29) mmol/L Anion Gap 18 (12-20) BUN 6 L (9-16) mg/dL Creatinine 0.67 (0.5-1.4) mg/dL Estim Creat Clear Calc 131.4 Estimated GFR > 60 POC Glucose (60-115) mg/dL Random Glucose 209 H D (60-115) mg/dL Lactic Acid (0.5-2.0) mmol/L Lactic Acid Fup @ 2Hr (0.5-2.0) mmol/L Calcium 8.5 D (8.4-10.2) mg/dL Total Bilirubin 1.5 H (0.0-1.0) mg/dL AST 35 (5-37) U/L ALT 26 (0-40) U/L Alkaline Phosphatase 99 (39-117) U/L Troponin I High Sens (<3.5-35.0) ng/L B-Natriuretic Peptide (<100) pg/mL Total Protein 7.0 (6.5-8.0) g/dL Albumin 3.5 (3.5-5.0) g/dL Lipase 6 L (8-78) U/L Urine Color YELLOW Urine Appearance CLEAR Urine pH 5.5 (5.0-8.0) Ur Specific [place] <= 1.005 (1.005-1.025) Urine Protein 2+ H (NEG-TRACE) MG/DL Urine Glucose (UA) 250 H (NEG) MG/DL Urine Ketones NEG (NEG) MG/DL Urine Blood 2+ H (NEG) Urine Nitrite NEG (NEG) Ur Leukocyte Esterase NEG (NEG) Urine RBC 0-2 (0) /HPF Urine WBC 0 (0-4) /HPF Ur Squamous Epith Cells NONE /LPF Amorphous Sediment 2+ /LPF Urine Bacteria NONE /LPF Hyaline Casts 0-2 /LPF Urine Opiates Screen (Not Detect) Ur Barbiturates Screen (Not Detect) Ur Phencyclidine Scrn (Not Detect) Ur Amphetamines Screen (Not Detect) U Benzodiazepines Scrn (Not Detect) Urine Cocaine Screen (Not Detect) U Marijuana (THC) Screen (Not Detect) Ethyl Alcohol 57 mg/dL 08/27/20 08/27/20 08/27/20 Range/Units 09:46 11:05 11:05 WBC (4.8-10.8) X10*3/uL RBC (4.60-5.80) X10*6/uL Hgb (14.0-18.0) g/dl Hct (42-52) % MCV (80-98) fL MCH (27.0-33.0) pg MCHC (31.0-36.0) g/dl RDW (11.0-16.0) % Plt Count (160-400) X10*3/uL MPV (9.4-12.4) fL Immature Gran % (Auto) (0.0-0.4) % Neut % (Auto) (45-73) % Lymph % (Auto) (20-40) % Lassen % (Auto) (2-11) % Eos % (Auto) (0-4) % Baso % (Auto) (0-2) % Lymph # (Auto) (1.2-4.9) X10*3/uL Lassen # (Auto) (0.1-1.2) X10*3/uL Eos # (Auto) (0.0-0.4) X10*3/uL Baso # (Auto) (0.0-0.2) X10*3/uL Abs Immat Gran (auto) (0.00-0.03) X10*3/uL Absolute Neuts (auto) (2.0-8.3) X10*3/uL Absolute Nucleated RBC (0.0-0.012) X10*3/uL Nucleated RBC % (auto) (0.0-0.2) /100WBC PT (10.8-13.0) SEC INR (0.9-1.1) APTT (24.1-38.0) SEC Sodium (135-145) mmol/L Potassium (3.3-5.1) mmol/L Chloride (96-108) mmol/L Carbon Dioxide (22-29) mmol/L Anion Gap (12-20) BUN (9-16) mg/dL Creatinine (0.5-1.4) mg/dL Estim Creat Clear Calc Estimated GFR POC Glucose (60-115) mg/dL Random Glucose (60-115) mg/dL Lactic Acid (0.5-2.0) mmol/L Lactic Acid Fup @ 2Hr 2.0 (0.5-2.0) mmol/L Calcium (8.4-10.2) mg/dL Total Bilirubin (0.0-1.0) mg/dL AST (5-37) U/L ALT (0-40) U/L Alkaline Phosphatase (39-117) U/L Troponin I High Sens 255.1 H D (<3.5-35.0) ng/L B-Natriuretic Peptide (<100) pg/mL Total Protein (6.5-8.0) g/dL Albumin (3.5-5.0) g/dL Lipase (8-78) U/L Urine Color Urine Appearance Urine pH (5.0-8.0) Ur Specific [place] (1.005-1.025) Urine Protein (NEG-TRACE) MG/DL Urine Glucose (UA) (NEG) MG/DL Urine Ketones (NEG) MG/DL Urine Blood (NEG) Urine Nitrite (NEG) Ur Leukocyte Esterase (NEG) Urine RBC (0) /HPF Urine WBC (0-4) /HPF Ur Squamous Epith Cells /LPF Amorphous Sediment /LPF Urine Bacteria /LPF Hyaline Casts /LPF Urine Opiates Screen Not Detected (Not Detect) Ur Barbiturates Screen POSITIVE H (Not Detect) Ur Phencyclidine Scrn Not Detected (Not Detect) Ur Amphetamines Screen Not Detected (Not Detect) U Benzodiazepines Scrn Not Detected (Not Detect) Urine Cocaine Screen Not Detected (Not Detect) U Marijuana (THC) Screen Not Detected (Not Detect) Ethyl Alcohol mg/dL ECG Data Attestation: I personally reviewed and interpreted this ECG as follows: Interpretation: 0733: Atrial fibrillation with a rapid ventricular response of 104 beats per minute, normal QRS and QTC intervals, no ST segment elevation or depression, occasional PVC, Q-waves in lead 3 and AVF with poor R-wave progression V1 through V3, no old EKG for comparison. Critical Care Time Critical Care Time Critical Care Time: Yes Total Critical Care Time: 45 Attestation: Critical Care: The patient was critically ill with a high probability of imminent or life threatening deterioration. I spent greater than 30 minutes of discontinuous time evaluating the patient,delivering critical care at the bedside, discussing and evaluating pertinent data with consultants. Critical care time does not include time spent performing separately billable procedures or teaching. Total time spent performing critical care was 45 minutes. Discharge Plan Discharge Clinical Impression: Acute non-ST elevation myocardial infarction (NSTEMI), COVID-19 Diarrhea Qualifiers: Diarrhea type: unspecified type Qualified Code(s): R19.7 - Diarrhea, unspecified Patient Disposition: Admitted As Inpatient
--- NOTE | 2020-08-27 07:45 | PC.NURSE ---
Addendum entered by Romero Pizarro RN 08/27/20 08:33: Correction. Pt AFIB on monitor Original Note: Pt sleeping, arousable with voice, respirations even and unlabored, NS on monitor, color appropriate for ethnicity. Cobol Engineer at bedside attempting to do CIWA scale, pt responded with yea to every question, sleeping during assessment. Will attempt later..
[2020-08-27 07:46] LABS: Glucose, Whole Blood 196 mg/dL (60-115)
[2020-08-27] MEDS: 0.9 % Sodium Chloride 1,000 ML 999 ML IV ×2 (07:53→10:54)
[2020-08-27 08:00] LABS: MANUAL DIFF FLAG NO
[2020-08-27 08:01] LABS: Basophils Percent Auto 0.2 % (0-2); Eosinophils Absolute Auto 0.1 X10*3/uL (0.0-0.4); Eosinophils Percent Auto 0.8 % (0-4); Hemoglobin 10.9 g/dl (14.0-18.0); Imm Gran Abs Auto 0.04 X10*3/uL (0.00-0.03); Imm Gran Pct Auto 0.7 % (0.0-0.4); Lymphocytes Percent Auto 15.8 % (20-40); Mean Corpuscular Hemoglobin 31.2 pg (27.0-33.0); Mean Corpuscular Volume 94.6 fL (80-98); Mean Platelet Volume 10.8 fL (9.4-12.4); Monocytes Absolute Auto 0.7 X10*3/uL (0.1-1.2); Monocytes Percent Auto 11.3 % (2-11); Neutrophils Absolute Auto 4.4 X10*3/uL (2.0-8.3); Neutrophils Percent Auto 71.2 % (45-73); Platelet Count 103 X10*3/uL (160-400); Red Blood Count 3.49 X10*6/uL (4.60-5.80); Red Cell Distribution Width 15.1 % (11.0-16.0); White Blood Count 6.1 X10*3/uL (4.8-10.8)
[2020-08-27 08:18] LABS: INTERNATIONAL NORM RATIO 1.4 (0.9-1.1); Prothrombin Time 16.1 SEC (10.8-13.0)
[2020-08-27 08:21] LABS: Partial Thromboplastin Time 35.9 SEC (24.1-38.0)
[2020-08-27 08:32] LABS: Troponin-I High Sensitivity 95.9 ng/L (<3.5-35.0)
[2020-08-27 09:42] LABS: Ethanol 57 mg/dL
[2020-08-27 09:46] LABS: Alanine Aminotransferase 26 U/L (0-40); Albumin Level 3.5 g/dL (3.5-5.0); Alkaline Phosphatase 99 U/L (39-117); Anion Gap 18 (12-20); Aspartate Amino Transferase 35 U/L (5-37); Bilirubin Total 1.5 mg/dL (0.0-1.0); Blood Urea Nitrogen 6 mg/dL (9-16); Calcium 8.5 mg/dL (8.4-10.2); Carbon Dioxide 18 mmol/L (22-29); Chloride 100 mmol/L (96-108); Creatinine Clr Calc Pharmacy 131.4; Estimated Glomerular Filt Rate > 60; Glucose Random 209 mg/dL (60-115); Lipase 6 U/L (8-78); Potassium 3.5 mmol/L (3.3-5.1); Sodium 132 mmol/L (135-145)
[2020-08-27 09:58] LABS: Reflex Lactate? Lactic Acid Added
[2020-08-27 09:59] LABS: Glucose Urine UA 250 MG/DL (NEG); Leukocyte Esterase Urine NEG (NEG); Nitrite Urine NEG (NEG); PH 5.5 (5.0-8.0); Specific Gravity - Urine <= 1.005 (1.005-1.025); Urine Blood 2+ (NEG); Urine Ketones NEG (NEG); Urine Protein 2+ MG/DL (NEG-TRACE)
[2020-08-27 10:00] LABS: Appearance Urine CLEAR; Color Urine YELLOW
[2020-08-27 10:15] LABS: Amorphous Sediment Urine 2+ /LPF; Hyaline Casts Urine 0-2 /LPF; RBC Urine 0-2 /HPF (0); WBC Urine 0 /HPF (0-4)
[2020-08-27 10:24] LABS: Amphetamine Screen Urine Not Detected (Not Detect); Barbiturates, Urine POSITIVE (Not Detect); Benzodiazepines Screen Urine Not Detected (Not Detect); Cannabinoid Screen Urine Not Detected (Not Detect); Cocaine Screen Urine Not Detected (Not Detect); Opiate Screen Urine Not Detected (Not Detect); Phencyclidine Screen Urine Not Detected (Not Detect)
[2020-08-27 10:37] LABS: B Type Natriuretic Peptide 294 pg/mL (<100)
[2020-08-27 11:46] LABS: Troponin-I High Sensitivity 255.1 ng/L (<3.5-35.0)
[2020-08-27] MEDS: Morphine Sulfate 4 MG/ML CARTRIDGE IVPUSH (12:10)
--- NOTE | 2020-08-27 12:10 | PC.NURSE ---
pt medicated per md orders with morphine, pt denies chest pain, but is reporting upper back pain and some sob. vs stable afib/flutter
[2020-08-27] MEDS: iohexoL 350 MG/ML 100 ML INFUS..BTL IV (14:11)
--- NOTE | 2020-08-27 14:58 | PC.NURSE ---
attempted to due the pt's medrec, but pt reports that he has not taken medications in a long time, not sure when he took them last but pt states he does not remember when he took his medications last, asked specifically if pt has been taking his insulin and pt's states that he does not take insulin.
[2020-08-27] MEDS: Enoxaparin Sodium 100 MG/ML SYRINGE 90 MG SUBCUT (15:27)
--- NOTE | 2020-08-27 15:33 | PC.NURSE ---
Hospitalist at bedside with extrusion former at this time.
--- NOTE | 2020-08-27 16:03 | P.HPHOSP_ITS ---
History of Present Illness Date of Service: 08/27/20 Chief Complaint: Shortness of breath, diarrhea, chest pain This is a 59-year-old Chilean-speaking male who presents to the emergency department with multiple complaints. He was initially admitted August 18 with atrial fibrillation rapid response and COVID-19. He was discharged home 08/20. He has been seen in the emergency department 2 times since then for alcohol intoxication. Returned today with complaints of diarrhea, chest pain, back pain. He reports falling 4 days ago and having back pain since that time. In addition he reports intermittent chest pain worse with cold and with activity. He is a vague historian but does not appear to be having active chest pain at this time. He reports multiple episodes of diarrhea daily and right-alec ed pain. He has some associated nausea without vomiting. In the emergency department he was noted to be in rapid atrial fibrillation. His cardiac enzymes increased from 95.9 to 255.1. Cardiology recommended anticoagulation and he was given a dose of therapeutic Lovenox. Lactic acid initially increased at 3.0 and improved to 2.0 after IV fluid. He drinks alcohol daily, he thinks his last drink was early this morning. Review of Systems Review of Systems: Yes all other systems are reviewed and are negative Constitutional: Constitutional: Denies chills and Denies fever(s) Cardiovascular: Cardiovascular: Reports chest pain, Denies palpitations and Reports dyspnea on exertion Respiratory: Respiratory: Reports dyspnea on exertion Endocrine: Endocrine: Denies palpitations [facility] Medical History A-fib CAD (coronary artery disease) Cardiomyopathy CHF (congestive heart failure) Cirrhosis Depression Diabetes ETOH abuse HTN (hypertension) Functional capacity: uses cane/walker Family history: reviewed and not pertinent Social History Household Members: None Housing: Apartment Alcohol intake: current Alcohol intake frequency: 3 or more drinks per day Alcohol type: beer Smoking Status: Never smoker Use of substances other than those prescribed or required for medical reasons: No Advance Directives: No Advance Directives Information Provided: No service: No Current occupational status: unemployed Meds Allergies Allergy/AdvReac Type Severity Reaction Status Date / Time Penicillins [PCN] Allergy Unknown UNKNOWN Verified 08/24/20 15:20 Active Medications: Current Medications Generic Name Dose Route Start Last Admin Trade Name Freq PRN Reason Stop Dose Admin Atorvastatin Calcium 80 mg 08/27/20 21:00 Atorvastatin Calcium 80 Mg Tablet PO BEDTIME [facility] Enoxaparin Sodium 90 mg 08/28/20 04:00 Enoxaparin Sodium 120 Mg/0.8 Ml Syringe 1 mg/kg (90 mg) SUBCUT Q12H [facility] Metoprolol Tartrate 50 mg 08/28/20 09:00 Metoprolol Tartrate 50 Mg Tablet PO BID [facility] Protocol Pharmacy Consult 1 each 08/27/20 14:49 Consult Rx Perform Med Rec MISCELLANE ONCE PRN Consult order Pharmacy Consult 1 each 08/27/20 15:59 Consult Rx Etoh Phenob Dosing MISCELLANE ONCE PRN Consult order Protocol Home Medications Medication Instructions Recorded Confirmed Last Taken Type aspirin 81 mg PO DAILY 01/22/20 08/18/20 Unknown History atorvastatin 40 mg PO BEDTIME 01/22/20 08/18/20 Unknown History furosemide 40 mg PO BID 01/22/20 08/18/20 Unknown History metoprolol succinate 50 mg PO DAILY 01/22/20 08/18/20 Unknown History multivitamin [One Daily 1 tab PO DAILY 01/22/20 08/18/20 Unknown History Multivitamin] spironolactone 25 mg PO DAILY 01/22/20 08/18/20 Unknown History thiamine HCl (vitamin B1) 100 mg PO DAILY 01/22/20 08/18/20 Unknown History fluoxetine 20 mg PO DAILY 05/02/20 08/18/20 Unknown History tamsulosin 0.4 mg PO DAILY 05/02/20 08/18/20 Unknown History Lantus Solostar U-100 Insulin 6 unit SUBCUT QAM 08/18/20 08/18/20 Unknown History Slow-Mag 71.5 mg PO DAILY 08/18/20 08/18/20 Unknown History acamprosate 666 mg PO TID 08/18/20 08/18/20 Unknown History ammonium lactate 1 appl TOPICAL BID 08/18/20 08/18/20 Unknown History apixaban 5 mg PO BID 08/18/20 08/18/20 Unknown History cholecalciferol (vitamin D3) 50 mcg PO DAILY 08/18/20 08/18/20 Unknown History folic acid 1 mg PO DAILY 08/18/20 08/18/20 Unknown History gabapentin 1 cap PO TID 08/18/20 08/18/20 Unknown History metformin 1 tab PO BID 08/18/20 08/18/20 Unknown History terbinafine HCl 1 appl TOPICAL BID 08/18/20 08/18/20 Unknown History trazodone 1 tab PO BEDTIME 08/18/20 08/18/20 Unknown History Physical Exam Vital Signs and Narrative: Vital Signs: Last Vital Signs Temp 97.9 F 08/27/20 14:15 Pulse 103 H 08/27/20 14:15 Resp 20 08/27/20 14:15 BP 150/94 H 08/27/20 14:15 Pulse Ox 96 08/27/20 14:15 Body Mass Index 30.4 Const: General: no acute distress, alert and awake Nutritional Appearance: well nourished HENMT: Head: Yes normocephalic and Yes atraumatic Eyes: Sclerae: sclerae normal Chest: Chest palpation & inspection: normal inspection of the chest Resp: Effort & Inspection: normal respiratory effort and no respiratory distress Auscultation: clear to auscultation bilaterally Cardio: Rate: tachycardic Rhythm: abnormal rhythm irregularly irregular GI: Palpation (GI): Soft to palpation and nontender Skin: Other: area of ecchymosis left flank Neuro: Cranial nerves: Yes CN's II-XII intact bilaterally and Yes Bilaterally intact EOM present Extrem: Other: Venous stasis changes bilateral lower extremities with varicosities Results Labs CBC and Chem 7: 08/27/20 07:48 08/27/20 09:02 Labs: Laboratory Results - last 24 hr 08/27/20 08/27/20 08/27/20 07:41 07:48 07:48 MCV 94.6 MCH 31.2 MCHC 33.0 RDW 15.1 Plt Count 103 L MPV 10.8 Immature Gran % (Auto) 0.7 H Neut % (Auto) 71.2 Lymph % (Auto) 15.8 L [place] % (Auto) 11.3 H Eos % (Auto) 0.8 Baso % (Auto) 0.2 Lymph # (Auto) 1.0 L [place] # (Auto) 0.7 Eos # (Auto) 0.1 Baso # (Auto) 0.0 Abs Immat Gran (auto) 0.04 H Absolute Neuts (auto) 4.4 Absolute Nucleated RBC 0.000 Nucleated RBC % (auto) 0.0 PT 16.1 H INR 1.4 H APTT 35.9 Anion Gap Estim Creat Clear Calc Estimated GFR POC Glucose 196 H Random Glucose Lactic Acid Lactic Acid Fup @ 2Hr Calcium Total Bilirubin AST ALT Alkaline Phosphatase Troponin I High Sens B-Natriuretic Peptide Total Protein Albumin Lipase Urine Color Urine Appearance Urine pH Ur Specific [place] Urine Protein Urine Glucose (UA) Urine Ketones Urine Blood Urine Nitrite Ur Leukocyte Esterase Urine RBC Urine WBC Ur Squamous Epith Cells Amorphous Sediment Urine Bacteria Hyaline Casts Urine Opiates Screen Ur Barbiturates Screen Ur Phencyclidine Scrn Ur Amphetamines Screen U Benzodiazepines Scrn Urine Cocaine Screen U Marijuana (THC) Screen Ethyl Alcohol 08/27/20 08/27/20 08/27/20 07:48 07:49 07:49 MCV MCH MCHC RDW Plt Count MPV Immature Gran % (Auto) Neut % (Auto) Lymph % (Auto) [place] % (Auto) Eos % (Auto) Baso % (Auto) Lymph # (Auto) [place] # (Auto) Eos # (Auto) Baso # (Auto) Abs Immat Gran (auto) Absolute Neuts (auto) Absolute Nucleated RBC Nucleated RBC % (auto) PT INR APTT Anion Gap Estim Creat Clear Calc Estimated GFR POC Glucose Random Glucose Lactic Acid 3.0 H* Lactic Acid Fup @ 2Hr Calcium Total Bilirubin AST ALT Alkaline Phosphatase Troponin I High Sens 95.9 H D B-Natriuretic Peptide 294 H Total Protein Albumin Lipase Urine Color Urine Appearance Urine pH Ur Specific [place] Urine Protein Urine Glucose (UA) Urine Ketones Urine Blood Urine Nitrite Ur Leukocyte Esterase Urine RBC Urine WBC Ur Squamous Epith Cells Amorphous Sediment Urine Bacteria Hyaline Casts Urine Opiates Screen Ur Barbiturates Screen Ur Phencyclidine Scrn Ur Amphetamines Screen U Benzodiazepines Scrn Urine Cocaine Screen U Marijuana (THC) Screen Ethyl Alcohol 08/27/20 08/27/20 08/27/20 09:02 09:02 09:46 MCV MCH MCHC RDW Plt Count MPV Immature Gran % (Auto) Neut % (Auto) Lymph % (Auto) [place] % (Auto) Eos % (Auto) Baso % (Auto) Lymph # (Auto) [place] # (Auto) Eos # (Auto) Baso # (Auto) Abs Immat Gran (auto) Absolute Neuts (auto) Absolute Nucleated RBC Nucleated RBC % (auto) PT INR APTT Anion Gap 18 Estim Creat Clear Calc 131.4 Estimated GFR > 60 POC Glucose Random Glucose 209 H D Lactic Acid Lactic Acid Fup @ 2Hr Calcium 8.5 D Total Bilirubin 1.5 H AST 35 ALT 26 Alkaline Phosphatase 99 Troponin I High Sens B-Natriuretic Peptide Total Protein 7.0 Albumin 3.5 Lipase 6 L Urine Color YELLOW Urine Appearance CLEAR Urine pH 5.5 Ur Specific [place] <= 1.005 Urine Protein 2+ H Urine Glucose (UA) 250 H Urine Ketones NEG Urine Blood 2+ H Urine Nitrite NEG Ur Leukocyte Esterase NEG Urine RBC 0-2 Urine WBC 0 Ur Squamous Epith Cells NONE Amorphous Sediment 2+ Urine Bacteria NONE Hyaline Casts 0-2 Urine Opiates Screen Ur Barbiturates Screen Ur Phencyclidine Scrn Ur Amphetamines Screen U Benzodiazepines Scrn Urine Cocaine Screen U Marijuana (THC) Screen Ethyl Alcohol 57 08/27/20 08/27/20 08/27/20 09:46 11:05 11:05 MCV MCH MCHC RDW Plt Count MPV Immature Gran % (Auto) Neut % (Auto) Lymph % (Auto) [place] % (Auto) Eos % (Auto) Baso % (Auto) Lymph # (Auto) [place] # (Auto) Eos # (Auto) Baso # (Auto) Abs Immat Gran (auto) Absolute Neuts (auto) Absolute Nucleated RBC Nucleated RBC % (auto) PT INR APTT Anion Gap Estim Creat Clear Calc Estimated GFR POC Glucose Random Glucose Lactic Acid Lactic Acid Fup @ 2Hr 2.0 Calcium Total Bilirubin AST ALT Alkaline Phosphatase Troponin I High Sens 255.1 H D B-Natriuretic Peptide Total Protein Albumin Lipase Urine Color Urine Appearance Urine pH Ur Specific [place] Urine Protein Urine Glucose (UA) Urine Ketones Urine Blood Urine Nitrite Ur Leukocyte Esterase Urine RBC Urine WBC Ur Squamous Epith Cells Amorphous Sediment Urine Bacteria Hyaline Casts Urine Opiates Screen Not Detected Ur Barbiturates Screen POSITIVE H Ur Phencyclidine Scrn Not Detected Ur Amphetamines Screen Not Detected U Benzodiazepines Scrn Not Detected Urine Cocaine Screen Not Detected U Marijuana (THC) Screen Not Detected Ethyl Alcohol Imaging Radiologist's Impressions: Impressions Chest X-Ray 08/27/20 06:46 IMPRESSION: Improving bilateral patchy airspace opacities. Chest CTA 08/27/20 12:08 Impression: 1. No evidence of central, lobar, or segmental pulmonary embolus. 2. Groundglass opacities in the periphery of the right upper and lower lobe and within the middle lobe sequelae of viral pneumonitis given patient's provided history. Left lung is relatively clear. 3. Small right pleural effusion. 4. Mild coronary vascular disease. 5. No evidence of aortic dissection. VTE: negative Assessment and Plan (1) Acute non-ST elevation myocardial infarction (NSTEMI): Status: Acute (2) Diarrhea: Qualifiers: Diarrhea type: unspecified type Qualified Code(s): R19.7 - Diarrhea, unspecified Status: Acute (3) COVID-19: Status: Acute This is a 59-year-old [place]an-speaking male with history of alcohol abuse, diabetes, atrial fibrillation, alcoholic liver cirrhosis, HFrEF presents emergency department with chest pain, back pain, diarrhea found to have NSTEMI NSTEMI Started on therapeutic Lovenox in the ED, will continue no active chest pain at this time -cardiology consult -echocardiogram -aspirin, statin, metoprolol AFib with rapid ventricular response Likely related to medication noncompliance Will resume oral metoprolol and monitor heart rate closely previous documents indicate pt not on chronic ac due to daily etoh use/frequent falls Alcohol dependence with risk for withdrawal -will start phenobarbital -continue thiamine, folic acid -check magnesium level -evaluated by care team on last admission, patient not interested in sobriety per previous notes fall likely due to intoxication has had falls in past due to same Diarrhea No leukocytosis, abdominal exam benign stool studies pending HFrEF EF from 2019 was 10-15% Noncompliant with medication No overt fluid overload at this time COVID-19 No hypoxia Supportive care DM -check Hba1c -SSI, POCs, ada diet Thrombocytopenia chronic. r/t liver disease -follow CBC med rec not complete at this time. pt not compliant with home meds dvt ppx - lovenox code status - full code Attending: Dr. Meza
--- NOTE | 2020-08-27 16:05 | PM.EVENT ---
Event Note Date of Service: 08/27/20 Event Note: 59-year-old male with history of alcohol abuse, diabetes, HFrEF (EF 10-15%) atrial fibrillation alcoholic liver cirrhosis, recurrent falls recently diagnosed to have COVID on August 18 came to emergency room due to worsening dyspnea on exertion, intermittent chest pain with activity in cold, fell 4 days ago with back injury,in emergency department noted to be in rapid atrial fibrillation with elevated troponin, lactic acidosis, INR of 1.4 at present c/o back pain,no chest pain,c/o abd pain and non bloody dairrhea On examination Awake alert answering questions appropriately Lungs clear to auscultation Heart irregularly irregular Abdomen obese soft nontender bowel sounds audible, no guarding no rigidity Extremities varicosities, hyperemic, nonpitting edema neuro nonfocal tennis ball size ecchymotic area left lumbar region Assessment and plan nstemi/cmp/atrial fib with rvr alcohol abuse with high risk for withdrawal lactic acidosis ch anemia thrombocytopenia Will treat patient with anticoagulant, beta blockers statins and aspirin follow clinical course closely due to high risk of bleeding with low platelets and elevated INR use phenobarb protocol.
[2020-08-27 16:46] LABS: Hematocrit 32.5 % (42-52); Hemoglobin 10.8 g/dl (14.0-18.0); Mean Corpuscular HGB Conc 33.2 g/dl (31.0-36.0); Mean Corpuscular Hemoglobin 31.7 pg (27.0-33.0); Mean Corpuscular Volume 95.3 fL (80-98); Mean Platelet Volume 10.5 fL (9.4-12.4); Red Blood Count 3.41 X10*6/uL (4.60-5.80); Red Cell Distribution Width 15.6 % (11.0-16.0)
[2020-08-27 16:50] LABS: Platelet Count 93 X10*3/uL (160-400)
[2020-08-27] MEDS: PHENobarbitaL sodium 130 MG/ML VIAL 219 MG IM (17:00)
[2020-08-27 17:01] LABS: Magnesium 1.3 mg/dL (1.6-2.6)
[2020-08-27] MEDS: Omeprazole 20 MG CAPSULE.DR PO (17:01)
[2020-08-27 17:11] LABS: INTERNATIONAL NORM RATIO 1.3 (0.9-1.1)
[2020-08-27 17:35] LABS: Partial Thromboplastin Time 43.2 SEC (24.1-38.0)
[2020-08-27] MEDS: PHENobarbitaL sodium 130 MG/ML VIAL 163 MG IM ×2 (20:19→21:45)
[2020-08-27] MEDS: Magnesium Sulfate/H2O 2 GM/50 ML PIGGYBACK IV (20:19)
--- NOTE | 2020-08-27 20:30 | PC.NURSE ---
PT NOT INTERESTED IN DINNER, TRIED TO ENCOURAGE PT TO EAT. POC 166, INSULIN HELD. REPORT GIVEN TO FLOOR, PT READY FOR TRANSPORT. SPOKE WITH HOSPITALIST ABOUT VITAMIN K THAT WAS NOT ADMINISTERED. PT HAS BRUISE OVER LEFT FLANK AREA. PT USED URINAL TO VOID, NO GROSS HEMATURIA NOTED.
[2020-08-27 20:41] LABS: Glucose, Whole Blood 166 mg/dL (60-115)
[2020-08-27 21:12] LABS: Glucose, Whole Blood 168 mg/dL (60-115)
[2020-08-27] MEDS: Insulin Lispro 100 UNIT/ML 3 ML VIAL SUBCUT (21:40)
[2020-08-27] MEDS: Atorvastatin Calcium 80 MG TABLET PO (21:40)
[2020-08-28] VITALS (8 sets, daily range): BP systolic 115–142; BP diastolic 70–90; PULSE 80–102; RESP 18–20; TEMP 35.5–36.9; O2SAT 96–99
[2020-08-28] MEDS: 0.9 % Sodium Chloride Flush 3 ML SYRINGE IVFLUSH ×4 (00:12→21:04)
[2020-08-28] MEDS: Enoxaparin Sodium 100 MG/ML SYRINGE 90 MG SUBCUT (05:44)
[2020-08-28] MEDS: Omeprazole 20 MG CAPSULE.DR PO (05:44)
[2020-08-28 06:50] LABS: Anion Gap 16 (12-20); Blood Urea Nitrogen 7 mg/dL (9-16); Calcium 8.2 mg/dL (8.4-10.2); Carbon Dioxide 23 mmol/L (22-29); Chloride 102 mmol/L (96-108); Creatinine Clr Calc Pharmacy 139.7; Estimated Glomerular Filt Rate > 60; Glucose Random 159 mg/dL (60-115); Potassium 3.6 mmol/L (3.3-5.1); Sodium 137 mmol/L (135-145)
[2020-08-28 06:52] LABS: Hematocrit 33.5 % (42-52); Hemoglobin 10.7 g/dl (14.0-18.0); Mean Corpuscular HGB Conc 31.9 g/dl (31.0-36.0); Mean Corpuscular Hemoglobin 30.7 pg (27.0-33.0); Mean Corpuscular Volume 96.3 fL (80-98); Mean Platelet Volume 10.8 fL (9.4-12.4); Red Blood Count 3.48 X10*6/uL (4.60-5.80); Red Cell Distribution Width 15.9 % (11.0-16.0); White Blood Count 4.7 X10*3/uL (4.8-10.8)
[2020-08-28 06:56] LABS: Platelet Count 88 X10*3/uL (160-400)
[2020-08-28 07:13] LABS: Glucose, Whole Blood 155 mg/dL (60-115)
[2020-08-28 07:54] LABS: Estimated Average Glucose 200 mg/dL; Hemoglobin A1c % 8.6 %
[2020-08-28] MEDS: Insulin Lispro 100 UNIT/ML 3 ML VIAL SUBCUT ×4 (08:21→21:03)
[2020-08-28] MEDS: PHENobarbitaL 15 MG TABLET 45 MG PO ×2 (08:21→21:03)
[2020-08-28] MEDS: Metoprolol Tartrate 50 MG TABLET PO ×2 (08:21→21:02)
[2020-08-28] MEDS: Thiamine HCL 100 MG TABLET PO (08:22)
[2020-08-28] MEDS: Folic Acid 1 MG TABLET PO (08:22)
[2020-08-28 11:16] LABS: Glucose, Whole Blood 200 mg/dL (60-115)
--- NOTE | 2020-08-28 11:34 | PM.CNCAR ---
History of Present Illness History of Present Illness Date of Service: 08/28/20 Requesting physician: Vira Zurita Chief complaint: covid+, SOB, + troponins Narrative: 59-year-old gentleman with background history of nonischemic cardiomyopathy due to alcoholism, cirrhosis of liver, atrial fibrillation, coronary artery disease with previous non ST elevation OK due to occluded distal right coronary artery, depression, diabetes and hypertension. He was recently admitted at [facility] for AFib with RVR and a COVID-19 infection. He left the hospital on August 20. He was seen in the emergency department since then twice for alcohol intoxication. He now is presenting for shortness of breath. He is saying is short of breath all the time but he felt his breathing was worse than before and decided to come. At the same time he complained of back pain and said that he had a fall. He also is complaining of some chest pain which is wake. Despite using order processing clerk his history is quite nonspecific and limited. He has elevated lactate for which she was given IV fluids. Review of Systems Review of Systems: Back pain PMFSH Past Medical History Medical History A-fib CAD (coronary artery disease) Cardiomyopathy CHF (congestive heart failure) Cirrhosis Depression Diabetes ETOH abuse HTN (hypertension) Functional capacity: uses cane/walker Family History Family history: reviewed and not pertinent Social History Social History Household Members: None Housing: Other Housing Other:: Room above bar Do you presently have visiting nurse or other home services: No Alcohol intake: current Alcohol intake frequency: 3 or more drinks per day Alcohol type: beer Smoking Status: Never smoker Use of substances other than those prescribed or required for medical reasons: No Currently Displaying Signs/Symptoms of Drug Intoxication Withdrawal: No Have you been hit, kicked, punched, or otherwise hurt by someone within the past year? If so, by whom?: No Do you feel safe in your current relationship?: No Current Relationship Are you made to feel afraid or neglected: No Advance Directives: No Advance Directives Information Provided: No Do you have thoughts of harming others: None Do you have a plan to hurt others: No Plan Recently lost weight without trying: No Nutrition Risks: No Nutritional Risk service: No Current occupational status: unemployed Meds Allergies Allergy/AdvReac Type Severity Reaction Status Date / Time Penicillins [PCN] Allergy Unknown UNKNOWN Verified 08/24/20 15:20 Active Medications: Current Medications Generic Name Dose Route Start Last Admin Trade Name Freq PRN Reason Stop Dose Admin Acetaminophen 650 mg 08/27/20 16:37 Acetaminophen 325 Mg Tablet PO Q6H PRN Pain, Mild (Pain Scale 1-3) Atorvastatin Calcium 80 mg 08/27/20 21:00 08/27/20 21:40 Atorvastatin Calcium 80 Mg Tablet PO 80 mg BEDTIME [facility] Administration Docusate Sodium 100 mg 08/27/20 16:37 Docusate Sodium 100 Mg Capsule PO DAILY PRN Constipation Enoxaparin Sodium 90 mg 08/28/20 06:00 08/28/20 05:44 Enoxaparin Sodium 100 Mg/Ml Syringe SUBCUT 90 mg Q12H [facility] Administration Folic Acid 1 mg 08/28/20 09:00 08/28/20 08:22 Folic Acid 1 Mg Tablet PO 1 mg DAILY [facility] Administration Insulin Human Lispro 0 unit 08/27/20 16:37 08/28/20 08:21 Insulin Lispro 100 Unit/Ml 3 Ml Vial SUBCUT 2 unit QIDACHS [facility] Administration Protocol Medication 1 each 08/27/20 16:15 No Benzodiazepines MISCELLANE DAILY [facility] Metoprolol Tartrate 50 mg 08/28/20 09:00 08/28/20 08:21 Metoprolol Tartrate 50 Mg Tablet PO 50 mg BID [facility] Administration Protocol Omeprazole 20 mg 08/27/20 16:30 08/28/20 05:44 Omeprazole 20 Mg Capsule. PO 20 mg DAILY@0630 [facility] Administration Ondansetron HCl 4 mg 08/27/20 16:37 Ondansetron Hcl 4 Mg/2 Ml Vial IVPUSH Q8H PRN Nausea and Vomiting Pharmacy Consult 1 each 08/27/20 14:49 Consult Rx Perform Med Rec MISCELLANE ONCE PRN Consult order Pharmacy Consult 1 each 08/27/20 15:59 Consult Rx Etoh Phenob Dosing MISCELLANE ONCE PRN Consult order Protocol Phenobarbital 45 mg 08/28/20 09:00 08/28/20 08:21 Phenobarbital 15 Mg Tablet PO 08/29/20 21:01 45 mg BID [facility] Administration Protocol Phenobarbital 15 mg 08/30/20 09:00 Phenobarbital 15 Mg Tablet PO 08/31/20 21:01 BID [facility] Protocol Phenobarbital 15 mg 09/01/20 09:00 Phenobarbital 15 Mg Tablet PO 09/02/20 09:01 DAILY [facility] Protocol Sodium Chloride 3 ml 08/27/20 16:37 08/28/20 08:22 0.9 % Sodium Chloride Flush 3 Ml Syringe IVFLUSH 3 ml QSHIFT [facility] Administration Thiamine HCl 100 mg 08/28/20 09:00 08/28/20 08:22 Thiamine Hcl 100 Mg Tablet PO 100 mg DAILY [facility] Administration Home Medications Medication Instructions Recorded Confirmed Last Taken Type aspirin 81 mg PO DAILY 01/22/20 08/18/20 Unknown History atorvastatin 40 mg PO BEDTIME 01/22/20 08/18/20 Unknown History furosemide 40 mg PO BID 01/22/20 08/18/20 Unknown History metoprolol succinate 50 mg PO DAILY 01/22/20 08/18/20 Unknown History multivitamin [One Daily 1 tab PO DAILY 01/22/20 08/18/20 Unknown History Multivitamin] spironolactone 25 mg PO DAILY 01/22/20 08/18/20 Unknown History thiamine HCl (vitamin B1) 100 mg PO DAILY 01/22/20 08/18/20 Unknown History fluoxetine 20 mg PO DAILY 05/02/20 08/18/20 Unknown History tamsulosin 0.4 mg PO DAILY 05/02/20 08/18/20 Unknown History Lantus Solostar U-100 Insulin 6 unit SUBCUT QAM 08/18/20 08/18/20 Unknown History Slow-Mag 71.5 mg PO DAILY 08/18/20 08/18/20 Unknown History acamprosate 666 mg PO TID 08/18/20 08/18/20 Unknown History ammonium lactate 1 appl TOPICAL BID 08/18/20 08/18/20 Unknown History apixaban 5 mg PO BID 08/18/20 08/18/20 Unknown History cholecalciferol (vitamin D3) 50 mcg PO DAILY 08/18/20 08/18/20 Unknown History folic acid 1 mg PO DAILY 08/18/20 08/18/20 Unknown History gabapentin 1 cap PO TID 08/18/20 08/18/20 Unknown History metformin 1 tab PO BID 08/18/20 08/18/20 Unknown History terbinafine HCl 1 appl TOPICAL BID 08/18/20 08/18/20 Unknown History trazodone 1 tab PO BEDTIME 08/18/20 08/18/20 Unknown History Physical Exam Vital Signs: Vital Signs: Last Vital Signs Temp 96 F L 08/28/20 11:12 Pulse 98 08/28/20 11:12 Resp 18 08/28/20 11:12 BP 129/83 08/28/20 11:12 Pulse Ox 97 08/28/20 11:12 Body Mass Index 30.4 GENERAL APPEARANCE: in no acute distress. HEENT: unremarkable. HEAD: normocephalic, atraumatic. NECK/THYROID: no carotid bruit, no jugular venous distention. SKIN: no suspicious lesions, warm and dry. HEART: no murmurs, irregular rate and rhythm. LUNGS: Few crackles right base. ABDOMEN: soft, nontender. EXTREMITIES: no edema. PERIPHERAL PULSES: equal. NEUROLOGIC: No gross deficits, AAO X 3 Results Labs and Meds Result diagrams: 08/28/20 05:28 08/28/20 05:28 Lab results: Laboratory Results - last 24 hr 08/27/20 08/27/20 08/27/20 09:02 11:05 11:05 WBC RBC Hgb Hct MCV MCH MCHC RDW Plt Count MPV Absolute Nucleated RBC Nucleated RBC % (auto) PT INR APTT Sodium Potassium Chloride Carbon Dioxide Anion Gap BUN Creatinine Estim Creat Clear Calc Estimated GFR POC Glucose Random Glucose Estimat Average Glucose Hemoglobin A1c % Lactic Acid Fup @ 2Hr 2.0 Calcium Magnesium 1.3 L* Troponin I High Sens 255.1 H D 08/27/20 08/27/20 08/27/20 16:32 16:32 16:32 WBC 5.0 RBC 3.41 L Hgb 10.8 L Hct 32.5 L MCV 95.3 MCH 31.7 MCHC 33.2 RDW 15.6 Plt Count 93 L MPV 10.5 Absolute Nucleated RBC 0.000 Nucleated RBC % (auto) 0.0 PT 16.0 H INR 1.3 H APTT 43.2 H D Sodium Potassium Chloride Carbon Dioxide Anion Gap BUN Creatinine Estim Creat Clear Calc Estimated GFR POC Glucose Random Glucose Estimat Average Glucose 200 Hemoglobin A1c % 8.6 Lactic Acid Fup @ 2Hr Calcium Magnesium Troponin I High Sens 08/27/20 08/27/20 08/28/20 20:29 21:09 05:28 WBC 4.7 L RBC 3.48 L Hgb 10.7 L Hct 33.5 L MCV 96.3 MCH 30.7 MCHC 31.9 RDW 15.9 Plt Count 88 L MPV 10.8 Absolute Nucleated RBC 0.000 Nucleated RBC % (auto) 0.0 PT INR APTT Sodium Potassium Chloride Carbon Dioxide Anion Gap BUN Creatinine Estim Creat Clear Calc Estimated GFR POC Glucose 166 H 168 H Random Glucose Estimat Average Glucose Hemoglobin A1c % Lactic Acid Fup @ 2Hr Calcium Magnesium Troponin I High Sens 08/28/20 08/28/20 08/28/20 05:28 07:07 11:12 WBC RBC Hgb Hct MCV MCH MCHC RDW Plt Count MPV Absolute Nucleated RBC Nucleated RBC % (auto) PT INR APTT Sodium 137 Potassium 3.6 Chloride 102 Carbon Dioxide 23 Anion Gap 16 BUN 7 L Creatinine 0.63 Estim Creat Clear Calc 139.7 Estimated GFR > 60 POC Glucose 155 H 200 H Random Glucose 159 H Estimat Average Glucose Hemoglobin A1c % Lactic Acid Fup @ 2Hr Calcium 8.2 L Magnesium Troponin I High Sens Imaging Radiologist's impression: Impressions Chest CTA 08/27/20 12:08 Impression: 1. No evidence of central, lobar, or segmental pulmonary embolus. 2. Groundglass opacities in the periphery of the right upper and lower lobe and within the middle lobe sequelae of viral pneumonitis given patient's provided history. Left lung is relatively clear. 3. Small right pleural effusion. 4. Mild coronary vascular disease. 5. No evidence of aortic dissection. VTE: negative Assessment and Plan (1) Acute non-ST elevation myocardial infarction (NSTEMI): Status: Acute (2) Diarrhea: Qualifiers: Diarrhea type: unspecified type Qualified Code(s): R19.7 - Diarrhea, unspecified Status: Acute (3) COVID-19: Status: Acute (4) Atrial fibrillation, rapid: Status: Acute (5) ETOH abuse: Status: Acute (6) Cardiomyopathy: Status: Acute 59-year-old gentleman with severe cardiomyopathy secondary to alcoholism, coronary artery disease and recent COVID-19 infection. He left the hospital on August 20. He is now presenting with shortness of breath. CT scan is showing right lung ground-glass changes consistent with pneumonitis. He also had a small right pleural effusion. Clinically not volume overloaded. He continues to drink significantly which is the cause for his cardiomyopathy. He has chronic atrial fibrillation. Not a good anticoagulation candidate due to alcoholism and falls. I think currently his presentation is due to COVID-19 and alcoholism. I do not think this is acute coronary syndrome. I think the Lovenox should be stopped. He also has cirrhosis and low platelet counts and is high risk for bleeding. Resume his home medications including oral diuretics. Avoid giving more IV fluids. Thank you for allowing me to participate in the care of your patient. Please feel free to contact me if you have any questions.
--- NOTE | 2020-08-28 12:26 | MHC.CM.PN ---
IMM 08/28/20 Male 59 DX Covid+ Pt reports that he lives alone. He uses a cane, for unsteady gait. He is independent ADLs. DP is home with VNA vs STR. Dispo will be determined with assist of PT eval. Patient states that he will require transportation assistance at discharge. CM will follow to assess for changes needed re DP.
[2020-08-28 15:26] LABS: INTERNATIONAL NORM RATIO 1.3 (0.9-1.1); Prothrombin Time 15.8 SEC (10.8-13.0)
--- NOTE | 2020-08-28 15:43 | HO.PM.IMPN ---
Subjective Subjective Date of Service: 08/28/20 Interval History: follow up possible elevated troponin. No chest pain or shortness of breath Physical Exam Vital Signs: Vital Signs: Last Vital Signs Temp 96 F L 08/28/20 11:12 Pulse 98 08/28/20 11:12 Resp 18 08/28/20 11:12 BP 129/83 08/28/20 11:12 Pulse Ox 97 08/28/20 11:12 Body Mass Index 30.4 Appearing in no acute distress lung sounds are clear to auscultation heart regular rate rhythm, clear S1, S2 positive bowel sounds, abdomen is soft, nontender neuro patient is alert x3, no focal deficits Objective Data Current Medications Generic Name Dose Route Start Last Admin Trade Name Freq PRN Reason Stop Dose Admin Acetaminophen 650 mg 08/27/20 16:37 Acetaminophen 325 Mg Tablet PO Q6H PRN Pain, Mild (Pain Scale 1-3) Atorvastatin Calcium 80 mg 08/27/20 21:00 08/27/20 21:40 Atorvastatin Calcium 80 Mg Tablet PO 80 mg BEDTIME [facility] Administration Docusate Sodium 100 mg 08/27/20 16:37 Docusate Sodium 100 Mg Capsule PO DAILY PRN Constipation Enoxaparin Sodium 90 mg 08/28/20 06:00 08/28/20 05:44 Enoxaparin Sodium 100 Mg/Ml Syringe SUBCUT 90 mg Q12H [facility] Administration Folic Acid 1 mg 08/28/20 09:00 08/28/20 08:22 Folic Acid 1 Mg Tablet PO 1 mg DAILY [facility] Administration Insulin Human Lispro 0 unit 08/27/20 16:37 08/28/20 11:48 Insulin Lispro 100 Unit/Ml 3 Ml Vial SUBCUT 2 unit QIDACHS [facility] Administration Protocol Medication 1 each 08/27/20 16:15 No Benzodiazepines MISCELLANE DAILY [facility] Metoprolol Tartrate 50 mg 08/28/20 09:00 08/28/20 08:21 Metoprolol Tartrate 50 Mg Tablet PO 50 mg BID [facility] Administration Protocol Omeprazole 20 mg 08/27/20 16:30 08/28/20 05:44 Omeprazole 20 Mg Capsule.Dr PO 20 mg DAILY@0630 [facility] Administration Ondansetron HCl 4 mg 08/27/20 16:37 Ondansetron Hcl 4 Mg/2 Ml Vial IVPUSH Q8H PRN Nausea and Vomiting Pharmacy Consult 1 each 08/27/20 14:49 Consult Rx Perform Med Rec MISCELLANE ONCE PRN Consult order Pharmacy Consult 1 each 08/27/20 15:59 Consult Rx Etoh Phenob Dosing MISCELLANE ONCE PRN Consult order Protocol Phenobarbital 45 mg 08/28/20 09:00 08/28/20 08:21 Phenobarbital 15 Mg Tablet PO 08/29/20 21:01 45 mg BID [facility] Administration Protocol Phenobarbital 15 mg 08/30/20 09:00 Phenobarbital 15 Mg Tablet PO 08/31/20 21:01 BID [facility] Protocol Phenobarbital 15 mg 09/01/20 09:00 Phenobarbital 15 Mg Tablet PO 09/02/20 09:01 DAILY [facility] Protocol Sodium Chloride 3 ml 08/27/20 16:37 08/28/20 08:22 0.9 % Sodium Chloride Flush 3 Ml Syringe IVFLUSH 3 ml QSHIFT [facility] Administration Thiamine HCl 100 mg 08/28/20 09:00 08/28/20 08:22 Thiamine Hcl 100 Mg Tablet PO 100 mg DAILY [facility] Administration Labs CBC & Chem 7: 08/28/20 05:28 08/28/20 05:28 Assessment and Plan (1) COVID-19: Status: Acute Assessment and Plan: This is a 59-year-old Vietnamese-speaking male with history of alcohol abuse, diabetes, atrial fibrillation, alcoholic liver cirrhosis, HFrEF presents emergency department with chest pain, back pain, diarrhea found to have possible NSTEMI COVID 19. Positive on 08/18. Symptoms are likely related to covid and alcohol not NSTEMI Started on therapeutic Lovenox, which was stopped. no active chest pain at this time -cardiology following -echocardiogram -aspirin, statin, metoprolol HFrEF, CMP. EF from 2019 was 10-15% Noncompliant with medication No overt fluid overload AFib with rapid ventricular response Likely related to medication noncompliance Will resume oral metoprolol and monitor heart rate closely previous documents indicate pt not on chronic ac due to daily etoh use/frequent falls Alcohol dependence with risk for withdrawal -will start phenobarbital -continue thiamine, folic acid -check magnesium level -evaluated by care team on last admission, patient not interested in sobriety per previous notes fall likely due to intoxication has had falls in past due to same Diarrhea, resolving No leukocytosis, abdominal exam benign stool studies pending DM -check Hba1c -SSI, POCs, ada diet Thrombocytopenia chronic. r/t liver disease -follow CBC Attending: Dr. Harman
[2020-08-28 16:54] LABS: Glucose, Whole Blood 176 mg/dL (60-115)
[2020-08-28 20:07] LABS: Glucose, Whole Blood 175 mg/dL (60-115)
[2020-08-28] MEDS: Atorvastatin Calcium 80 MG TABLET PO (21:03)
[2020-08-29] VITALS (7 sets, daily range): BP systolic 120–153; BP diastolic 68–98; PULSE 75–97; RESP 18; TEMP 36.1–37.1; O2SAT 96–97
[2020-08-29] MEDS: Omeprazole 20 MG CAPSULE.DR PO (05:49)
[2020-08-29 07:07] LABS: Glucose, Whole Blood 140 mg/dL (60-115)
--- NOTE | 2020-08-29 07:14 | CA_ITS ---
Transthoracic Echocardiogram Patient (Last, First, Middle): Sabino Lilly, Gender: Male Date of : 1960 Age: 59 Procedure Date: 08/29/2020 Procedure Type: Transthoracic Echocardiogram Location: [facility] [place] Height: 172.72 cm Weight: 90.72 kg BSA: 2.04 m2 Heart Rate: bpm BP: 142 / 90 mmHg [employer] Assistant: PAULY Referring MD: Aimee JAVIER Symptoms: nstemi, afib Study Quality: Technically Difficult ECG Rhythm: Atrial Fibrillation Conclusions: - Mildly increased left ventricular cavity size. There is mildly increased left ventricular wall thickness. The left ventricular systolic function is severely decreased. - The left atrium is likely dilated. The right atrium is moderately dilated. - There is mild to moderate mitral valve regurgitation. - There is mild tricuspid valve regurgitation. - Significantly elevated right atrial pressure. - There is moderate dilatation of the ascending aorta measuring 4.30 cm. Findings Left Ventricle Mildly increased left ventricular cavity size. There is mildly increased left ventricular wall thickness. The left ventricular systolic function is severely decreased. The visually estimated ejection fraction is between 10 15%. There is severe global hypokinesis. Diastolic function is indeterminate on the basis of available data. Right Ventricle Mildly increased right ventricular cavity size. There is mild to moderately decreased right ventricular systolic function. Atria The left atrium is likely dilated. The right atrium is moderately dilated. Aortic Valve There is a normal trileaflet aortic valve. There is mild calcification of the aortic valve. There is no aortic valve stenosis. There is no aortic valve regurgitation. Mitral Valve There is mild mitral annular calcification. There is mild to moderate mitral valve regurgitation. There is no mitral valve stenosis. Pulmonic Valve Normal pulmonic valve structure and function. There is trace pulmonic valve regurgitation. Tricuspid Valve Normal tricuspid valve structure. There is mild tricuspid valve regurgitation. Tricuspid regurgitation envelope is inadequate for calculation of right ventricular systolic pressure. Significantly elevated right atrial pressure. Great Vessels There is moderate dilatation of the ascending aorta measuring 4.30 cm. Venous The inferior vena cava is severely dilated and does not collapse with inspiration. Pericardium/Pleural There is no evidence of pericardial effusion. Prior Study Comparison No significant change compared to prior study dated: 08/31/2019. Measurements M-Mode Liner Measurements Normals - Women/Men AOV Cusps: 1.60 1.5-2.6 cm/m2 2D Linear Measurements IVSd: 1.24 0.6-0.9/0.6-1.0 cm LVIDd: 6.23 3.9-5.3/4.2-5.9 cm LVIDd Index: 3.05 2.4-3.2/2.2-3.1 cm/m2 LVIDs: 5.29 2.0-3.6 cm LVPWd: 1.09 0.7-1.1 cm Ao Root: 3.30 2.1-3.5 cm LA Diam: 4.40 2.7-3.8/3.0-4.0 cm LAIDs Index: 2.16 1.5-2.3 cm/m2 LV Mass: 400.83 67-162/88-224 g LV Mass Index: 196.49 43-95/49-115 g/m2 LVOT Diam: 2.20 3.0+(-)1.3 cm 2D Systolic Function EF 4C: 10.60 >55% EF 2C: 39.60 >55% Mitral Valve MV Pk E: 1.13 MV Decel Time: 132.00 PHT: 39.00 MVA PHT: 5.64 Decel Dent: 8.60 Aortic Valve AoV Pk Kieran: 0.90 AoV Mn Kieran: 0.77 AoV VTI: 0.18 AoV Pk Grad: 3.00 Aov Mn Grad: 3.00 DRU Cont.VTI: 2.55 LVOT LVOT Pk Kieran: 0.71 LVOT Mn Kieran: 0.51 LVOT VTI: 0.12 LVOT Pk Grad: 2.00 LVOT Mn Grad: 1.00 LVOT Diam: 2.20 LVOT Area: 3.80 Diastolic Function MV Pk E: 1.13 Tricuspid Valve TR Pk Kieran: 2.05 TR Pk Grad: 17.00 RA Press: 15.00 Great Vessels Aorta Ao Root-2D: 3.30 2.0-3.7 cm Ao Asc: 4.30 2.1-3.4 cm Pulmonary Valve PV Pk Kieran: 0.66 Peak PV Grad: 2.00 Updated in Other Vendor System with Status of Final David Ernandez MD electronically signed on 08/30/2020 11:37:56 AM with status of Final
[2020-08-29] MEDS: Thiamine HCL 100 MG TABLET PO (09:22)
[2020-08-29] MEDS: Folic Acid 1 MG TABLET PO (09:22)
[2020-08-29] MEDS: Metoprolol Tartrate 50 MG TABLET PO ×2 (09:22→21:21)
[2020-08-29] MEDS: PHENobarbitaL 15 MG TABLET 45 MG PO ×2 (09:25→21:21)
[2020-08-29] MEDS: 0.9 % Sodium Chloride Flush 3 ML SYRINGE IVFLUSH ×3 (10:29→21:21)
[2020-08-29 11:14] LABS: Glucose, Whole Blood 150 mg/dL (60-115)
[2020-08-29 16:20] LABS: Glucose, Whole Blood 178 mg/dL (60-115)
[2020-08-29] MEDS: Insulin Lispro 100 UNIT/ML 3 ML VIAL SUBCUT ×2 (16:50→21:21)
--- NOTE | 2020-08-29 17:47 | HO.PM.IMPN ---
Subjective Subjective Date of Service: 08/29/20 Interval History: Follow up chest pain, covid No chest pain or sob Physical Exam Vital Signs: Vital Signs: Last Vital Signs Temp 97.8 F 08/29/20 15:48 Pulse 75 08/29/20 15:48 Resp 18 08/29/20 15:48 BP 120/82 08/29/20 15:48 Pulse Ox 97 08/29/20 15:48 Body Mass Index 30.4 Appearing in no acute distress lung sounds are clear to auscultation heart regular rate rhythm, clear S1, S2 positive bowel sounds, abdomen is soft, nontender neuro patient is alert x3, no focal deficits Objective Data Current Medications Generic Name Dose Route Start Last Admin Trade Name Freq PRN Reason Stop Dose Admin Acetaminophen 650 mg 08/27/20 16:37 Acetaminophen 325 Mg Tablet PO Q6H PRN Pain, Mild (Pain Scale 1-3) Atorvastatin Calcium 80 mg 08/27/20 21:00 08/28/20 21:03 Atorvastatin Calcium 80 Mg Tablet PO 80 mg BEDTIME [facility] Administration Docusate Sodium 100 mg 08/27/20 16:37 Docusate Sodium 100 Mg Capsule PO DAILY PRN Constipation Folic Acid 1 mg 08/28/20 09:00 08/29/20 09:22 Folic Acid 1 Mg Tablet PO 1 mg DAILY [facility] Administration Insulin Human Lispro 0 unit 08/27/20 16:37 08/29/20 16:50 Insulin Lispro 100 Unit/Ml 3 Ml Vial SUBCUT 2 unit QIDACHS [facility] Administration Protocol Medication 1 each 08/27/20 16:15 No Benzodiazepines MISCELLANE DAILY [facility] Metoprolol Tartrate 50 mg 08/28/20 09:00 08/29/20 09:22 Metoprolol Tartrate 50 Mg Tablet PO 50 mg BID [facility] Administration Protocol Omeprazole 20 mg 08/27/20 16:30 08/29/20 05:49 Omeprazole 20 Mg Capsule.Dr PO 20 mg DAILY@0630 [facility] Administration Ondansetron HCl 4 mg 08/27/20 16:37 Ondansetron Hcl 4 Mg/2 Ml Vial IVPUSH Q8H PRN Nausea and Vomiting Pharmacy Consult 1 each 08/27/20 14:49 Consult Rx Perform Med Rec MISCELLANE ONCE PRN Consult order Pharmacy Consult 1 each 08/27/20 15:59 Consult Rx Etoh Phenob Dosing MISCELLANE ONCE PRN Consult order Protocol Pharmacy Consult 1 each 08/28/20 15:55 Consult Rx Perform Med Rec MISCELLANE ONCE PRN Consult order Phenobarbital 45 mg 08/28/20 09:00 08/29/20 09:25 Phenobarbital 15 Mg Tablet PO 08/29/20 21:01 45 mg BID [facility] Administration Protocol Phenobarbital 15 mg 08/30/20 09:00 Phenobarbital 15 Mg Tablet PO 08/31/20 21:01 BID [facility] Protocol Phenobarbital 15 mg 09/01/20 09:00 Phenobarbital 15 Mg Tablet PO 09/02/20 09:01 DAILY [facility] Protocol Sodium Chloride 3 ml 08/27/20 16:37 08/29/20 16:52 0.9 % Sodium Chloride Flush 3 Ml Syringe IVFLUSH 3 ml QSHIFT [facility] Administration Thiamine HCl 100 mg 08/28/20 09:00 08/29/20 09:22 Thiamine Hcl 100 Mg Tablet PO 100 mg DAILY [facility] Administration Labs CBC & Chem 7: 08/28/20 05:28 08/28/20 05:28 Assessment and Plan (1) COVID-19: Status: Acute Assessment and Plan: This is a 59-year-old Ukrainian-speaking male with history of alcohol abuse, diabetes, atrial fibrillation, alcoholic liver cirrhosis, HFrEF presents emergency department with chest pain, back pain, diarrhea found to have possible NSTEMI COVID 19. Positive on 08/18. Symptoms are likely related to covid and alcohol not NSTEMI Started on therapeutic Lovenox, which was stopped. no active chest pain at this time -cardiology following -echocardiogram -aspirin, statin, metoprolol HFrEF, CMP. EF from 2019 was 10-15% Noncompliant with medication No overt fluid overload AFib with rapid ventricular response Likely related to medication noncompliance Will resume oral metoprolol and monitor heart rate closely previous documents indicate pt not on chronic ac due to daily etoh use/frequent falls Alcohol dependence with risk for withdrawal -will start phenobarbital -continue thiamine, folic acid -check magnesium level -evaluated by care team on last admission, patient not interested in sobriety per previous notes fall likely due to intoxication has had falls in past due to same Diarrhea, resolving No leukocytosis, abdominal exam benign stool studies pending DM -check Hba1c -SSI, POCs, ada diet Thrombocytopenia chronic. r/t liver disease -follow CBC DVT prophylaxis with lovenox Attending: Dr. Harman
[2020-08-29] MEDS: Enoxaparin Sodium 40 MG/0.4 ML SYRINGE SUBCUT (18:37)
[2020-08-29 20:08] LABS: Glucose, Whole Blood 156 mg/dL (60-115)
[2020-08-29] MEDS: Atorvastatin Calcium 80 MG TABLET PO (21:21)
[2020-08-30] VITALS: BP 132/84; PULSE 82; RESP 15; TEMP 36; O2SAT 97
[2020-08-30 04:00] VITALS: BP 129/87; PULSE 87; RESP 16; TEMP 36; O2SAT 97
[2020-08-30] MEDS: Omeprazole 20 MG CAPSULE.DR PO (05:33)
[2020-08-30 07:15] LABS: Glucose, Whole Blood 142 mg/dL (60-115)
[2020-08-30 07:27] VITALS: BP 135/87; PULSE 86; RESP 18; TEMP 36.1; O2SAT 98
[2020-08-30] MEDS: PHENobarbitaL 15 MG TABLET PO (09:56)
[2020-08-30] MEDS: 0.9 % Sodium Chloride Flush 3 ML SYRINGE IVFLUSH (09:56)
--- NOTE | 2020-08-30 09:57 | P.DS_ITS ---
DS: Providers Provider Date of Service: 08/30/20 <Vira Zurita NP - Last Filed: 08/30/20 17:51> 08/30/20 <Trenton Harman MD - Last Filed: 08/31/20 11:36> Date of admission: 08/27/20 16:35 <Vira Zurita NP - Last Filed: 08/30/20 17:51> Date of discharge: 08/30/20 <Vira Zurita NP - Last Filed: 08/30/20 17:51> Primary care physician: Unknown Physician <Vira Zurita NP - Last Filed: 08/30/20 17:51> Admitting clinician: Aimee Vazquez <Vira Zurita NP - Last Filed: 08/30/20 17:51> Attending physician on admission: Isis Meza <Vira Zurita NP - Last Filed: 08/30/20 17:51> Consults: 08/27/20 15:59 Consult to Cardiology Routine Consulting Provider: Jin Quintero Reason for consultation: nstemi Has provider been notified: No <Vira Zurita NP - Last Filed: 08/30/20 17:51> Attending physician on discharge: Trenton Harman <Vira Zurita NP - Last Filed: 08/30/20 17:51> Discharging clinician: Vira Zurita <Vira Zurita NP - Last Filed: 08/30/20 17:51> DS: Diagnosis Discharge Diagnosis (1) COVID-19: Status: Acute <Vira Zurita NP - Last Filed: 08/30/20 17:51> (2) Cardiomyopathy: Status: Acute <Vira Zurita NP - Last Filed: 08/30/20 17:51> (3) A-fib: Status: Acute <Vira Zurita NP - Last Filed: 08/30/20 17:51> (4) ETOH abuse: Status: Acute <Vira Zurita NP - Last Filed: 08/30/20 17:51> DS: Medications Discharge Medications Home Medications: Home Medications Medication Instructions Recorded Confirmed aspirin 81 mg PO DAILY 01/22/20 08/28/20 atorvastatin 40 mg PO BEDTIME 01/22/20 08/28/20 furosemide 40 mg PO BID 01/22/20 08/28/20 metoprolol succinate 50 mg PO DAILY 01/22/20 08/28/20 multivitamin [One Daily 1 tab PO DAILY 01/22/20 08/28/20 Multivitamin] spironolactone 25 mg PO DAILY 01/22/20 08/28/20 fluoxetine 20 mg PO DAILY 05/02/20 08/28/20 tamsulosin 0.4 mg PO DAILY 05/02/20 08/28/20 Lantus Solostar U-100 Insulin 6 unit SUBCUT QAM 08/18/20 08/28/20 ammonium lactate 1 appl TOPICAL BID 08/18/20 08/28/20 apixaban 5 mg PO BID 08/18/20 08/28/20 gabapentin 1 cap PO TID 08/18/20 08/28/20 metformin 1 tab PO BID 08/18/20 08/28/20 trazodone 1 tab PO BEDTIME 08/18/20 08/28/20 <Vira Zurita NP - Last Filed: 08/30/20 17:51> DS: Summary Hospital Course Hospital Course: HP as per admitting provider This is a 59-year-old Bengali-speaking male who presents to the emergency department with multiple complaints. He was initially admitted August 18 with atrial fibrillation rapid response and COVID-19. He was discharged home 08/20. He has been seen in the emergency department 2 times since then for alcohol intoxication. Returned today with complaints of diarrhea, chest pain, back pain. He reports falling 4 days ago and having back pain since that time. In addition he reports intermittent chest pain worse with cold and with activity. He is a vague historian but does not appear to be having active chest pain at this time. He reports multiple episodes of diarrhea daily and right-sided pain. He has some associated nausea without vomiting. In the emergency department he was noted to be in rapid atrial fibrillation. His cardiac enzymes increased from 95.9 to 255.1. Cardiology recommended anticoagulation and he was given a dose of therapeutic Lovenox. Lactic acid initially increased at 3.0 and improved to 2.0 after IV fluid. He drinks alcohol daily, he thinks his last drink was early this morning . Covid-19 patient initially diagnosed on August 18. During that admission patient was asymptomatic. Patient returned this time for complaints of chest pain however initially thought to be related to NSTEMI but symptoms were secondary to COVID-19, cardiomyopathy and alcohol abuse. No need for quarantine as patient was initially diagnosed on 08/18/20. Chest pain. No complaints of chest pain during hospitalization. Initially was thought to be NSTEMI, Troponins were initially elevated, patient was treated with therapeutic Lovenox however patient was seen and evaluated by Cardiology in symptoms were thought to be more related to COVID-19 and cardiomyopathy as well as alcohol use. Atrial fibrillation with rapid ventricular response. Chronic atrial fibrillation. Patient metoprolol, increase to twice daily. There was a question of noncompliance. Patient is not on anticoagulation due to history of frequent falls and alcohol abuse. Heart rate better controlled at this time. Alcohol abuse. Started on phenobarbital protocol inpatient. No signs wit hdrawal. Discussed the importance of alcohol cessation. Seen and evaluated by the CARE team. Attending Attestation: Patient seen and examined independently and I was present during wei portion of E/M service. Agree with Joan Zurita NP's history, physical, assessment, and plan. <Vira Zurita NP - Last Filed: 08/30/20 17:51> Time Spent with Patient Time attestation: Total time spent providing and/or coordinating discharge services: <Vira Zurita NP - Last Filed: 08/30/20 17:51> Discharge coordination time: Greater than 30 minutes <Vira Zurita NP - Last Filed: 08/30/20 17:51> Physical Exam Vital Signs: Vital Signs: Last Vital Signs Temp 97 F 08/30/20 07:27 Pulse 86 08/30/20 07:27 Resp 18 08/30/20 07:27 BP 135/87 08/30/20 07:27 Pulse Ox 98 08/30/20 07:27 Body Mass Index 30.4 <Vira Zurita NP - Last Filed: 08/30/20 17:51> Appearing in no acute distress head is normocephalic atraumatic eyes pupils are PERRLA sclera is anicteric mouth throat mucous membranes are intact and moist neck is supple no lymphadenopathy, no JVD noted lung sounds are clear to auscultation heart IRIR positive bowel sounds, abdomen is soft, nontender neuro patient is alert x3, no focal deficits <Vira Zurita NP - Last Filed: 08/30/20 17:51> DS: Data Data Completed and Pending Completed studies during hospitalization [Text1]: Procedures Detoxification Services for Substance Abuse Treatment (08/18/20) <Vira Zurita NP - Last Filed: 08/30/20 17:51> Labs on day of discharge: Laboratory Results - last 24 hr 08/29/20 08/29/20 08/29/20 11:10 16:15 20:03 POC Glucose 150 H 178 H 156 H 08/30/20 07:10 POC Glucose 142 H <Vira Zurita NP - Last Filed: 08/30/20 17:51> Discharge Plan Discharge Anticipated Discharge Date/Time: 08/30/20 09:51 <Vira Zurita NP - Last Filed: 08/30/20 17:51> Patient Disposition: Home, Self-Care <Vira Zurita NP - Last Filed: 08/30/20 17:51> Discharge Diagnosis: COVID 19 Cardiomyopathy Alcohol abuse <Vira Zurita NP - Last Filed: 08/30/20 17:51> COVID 19 Cardiomyopathy Alcohol abuse <Trenton Harman MD - Last Filed: 08/31/20 11:36> Referrals: Physician,Unknown [Primary Care Provider] - 1 Week <Vira Zurita NP - Last Filed: 08/30/20 17:51> Discharge Medications: New metoprolol tartrate 50 mg Tablet 50 mg PO BID 30 Days Qty: 60 RF: 0 omeprazole 20 mg Capsule,Delayed Release(Dr/Ec) 20 mg PO DAILY@0630 30 Days Qty: 30 RF: 0 folic acid 1 mg Tablet 1 mg PO DAILY 30 Days Qty: 30 RF: 0 thiamine mononitrate (vit B1) 100 mg Tablet 100 mg PO DAILY 30 Days Qty: 30 RF: 0 Continued tamsulosin 0.4 mg Capsule 0.4 mg PO DAILY RF: 0 fluoxetine 20 mg Capsule 20 mg PO DAILY RF: 0 trazodone 50 mg tablet 1 tab PO BEDTIME RF: 0 gabapentin 400 mg capsule 1 cap PO TID RF: 0 metformin 1,000 mg tablet 1 tab PO BID RF: 0 Lantus Solostar U-100 Insulin 100 unit/mL (3 mL) insulin pen 6 unit subcut QAM RF: 0 ammonium lactate 12 % cream 1 appl topical BID RF: 0 apixaban 5 mg Tablet 5 mg PO BID RF: 0 multivitamin [One Daily Multivitamin] Tablet 1 tab PO DAILY RF: 0 furosemide 40 mg tablet 40 mg PO BID RF: 0 atorvastatin 40 mg tablet 40 mg PO BEDTIME RF: 0 aspirin 81 mg tablet,delayed release (DR/EC) 81 mg PO DAILY RF: 0 spironolactone 25 mg tablet 25 mg PO DAILY RF: 0 Discontinued metoprolol succinate 50 mg tablet extended release 24 hr 50 mg PO DAILY RF: 0 <Vira uZrita NP - Last Filed: 08/30/20 17:51> Discharge Orders: Discharge Order (Routine); Ordered 08/30/20 Ordered By: Vira Zurita <Vira Zurita NP - Last Filed: 08/30/20 17:51> Diet: advance to usual diet <Vira Zurita NP - Last Filed: 08/30/20 17:51> advance to usual diet <Trenton Harman MD - Last Filed: 08/31/20 11:36> Activity on Discharge: As tolerated <Vira Zurita NP - Last Filed: 08/30/20 17:51> As tolerated <Trenton Harman MD - Last Filed: 08/31/20 11:36> Stand Alone Forms: Patient Portal Discharge page <Vira Zurita NP - Last Filed: 08/30/20 17:51> Care Plan Goals: Resolution of Covid 19 Stop drinking alcohol <Viar Zurita NP - Last Filed: 08/30/20 17:51> Health Concerns: Alcohol abuse Covid 19 Cardiomyopathy <Vira Zurita NP - Last Filed: 08/30/20 17:51> Plan of Treatment: Follow up with primary care provider as needed <Vira Zurita NP - Last Filed: 08/30/20 17:51> Assessment: See discharge summary <Vira Zurita NP - Last Filed: 08/30/20 17:51> Discharge Date/Time: 08/30/20 12:40 <Vira Zurita NP - Last Filed: 08/30/20 17:51>
[2020-08-30 09:58] VITALS: BP 135/87; PULSE 86
[2020-08-30] MEDS: Metoprolol Tartrate 50 MG TABLET PO (09:58)
[2020-08-30] MEDS: Folic Acid 1 MG TABLET PO (09:58)
[2020-08-30] MEDS: Thiamine HCL 100 MG TABLET PO (09:58)
[2020-08-30 11:20] LABS: Glucose, Whole Blood 146 mg/dL (60-115)
--- NOTE | 2020-08-30 11:32 | MHC.CM.PN ---
IMM 08/30/20 Male 59 DX COVID + Patiat is discharged to home today no services ordered or required. Transportation to home via S
== END 2020-08-30 12:40 | disposition home or self-care (01) | DRG 178 ==
LOC: HO.ED 15:10 → HO.EDOVER 16:36 → HO.IMC 17:18
PROVIDERS: Admitting Provider Physician Assistant Medical; Emergency Provider Emergency Medicine Emergency Medical Services; PCP Family Medicine; Visit Provider Nurse Practitioner Acute Care
DX: U07.1 COVID-19 (principal); I42.6 Alcoholic cardiomyopathy; I48.20 Chronic atrial fibrillation, unspecified; I50.22 Chronic systolic (congestive) heart failure; E11.9 Type 2 diabetes mellitus without complications; R19.7 Diarrhea, unspecified; R79.1 Abnormal coagulation profile; F10.20 Alcohol dependence, uncomplicated; D69.6 Thrombocytopenia, unspecified; I25.10 Atherosclerotic heart disease of native coronary artery without angina pectoris; Z91.14 Patient's other noncompliance with medication regimen; Z88.0 Allergy status to penicillin; Z79.4 Long term (current) use of insulin; Z79.01 Long term (current) use of anticoagulants; Z79.82 Long term (current) use of aspirin; Z79.899 Other long term (current) drug therapy
CPT/HCPCS: 36415; 70450; 71045; 71260; 71275; 72125; 74177; 80048; 80053; 80076; 80307; 80320; 81001; 81003; 82550; 82947; 83036; 83605; 83690; 83735; 83880; 84484; 85025; 85027; 85610; 85730; 87040; 93005; 93306; 96361; 96365; 96372; 96374; 99285; 99291; J1650; J1956; J2270; J2560; J3475; Q9967

== ENCOUNTER 2020-08-31 20:05 | Emergency (ER) | payer MEDICARE, MEDICAID, SELFPAY ==
[2020-08-31 20:22] VITALS: BP 115/72; BP 140/80; PULSE 90; PULSE 95; RESP 16; TEMP 36.6; O2SAT 95; BMI 35.6
--- NOTE | 2020-08-31 21:08 | ECG_ITS ---
Test Reason : FALL Blood Pressure : / mmHG Vent. Rate : 092 BPM Atrial Rate : 122 BPM P-R Int : 000 ms QRS Dur : 106 ms QT Int : 418 ms P-R-T Axes : 000 -81 099 degrees QTc Int : 516 ms Atrial fibrillation Left axis deviation Cannot rule out Inferior infarct (cited on or before 02-JUL-2016) Anterior infarct , age undetermined Prolonged QT Abnormal ECG When compared with ECG of 27-AUG-2020 07:33, Anterior infarct is now Present Nonspecific T wave abnormality no longer evident in Anterior leads QT has lengthened Referred By: Malcolm Cardenas Electronically Signed By:COLIN LLAMAS MD
[2020-08-31 21:15] VITALS: BP 127/76; PULSE 88; RESP 20; TEMP 36.4; O2SAT 95
[2020-08-31 21:56] LABS: MANUAL DIFF FLAG NO
[2020-08-31 21:58] LABS: Basophils Percent Auto 0.2 % (0-2); Eosinophils Absolute Auto 0.1 X10*3/uL (0.0-0.4); Eosinophils Percent Auto 1.3 % (0-4); Hematocrit 33.6 % (42-52); Hemoglobin 11.1 g/dl (14.0-18.0); Imm Gran Abs Auto 0.04 X10*3/uL (0.00-0.03); Imm Gran Pct Auto 0.5 % (0.0-0.4); Lymphocytes Absolute Auto 1.7 X10*3/uL (1.2-4.9); Lymphocytes Percent Auto 19.7 % (20-40); Mean Corpuscular Hemoglobin 32.1 pg (27.0-33.0); Mean Corpuscular Volume 97.1 fL (80-98); Mean Platelet Volume 10.3 fL (9.4-12.4); Monocytes Absolute Auto 0.5 X10*3/uL (0.1-1.2); Monocytes Percent Auto 6.1 % (2-11); Neutrophils Absolute Auto 6.2 X10*3/uL (2.0-8.3); Neutrophils Percent Auto 72.2 % (45-73); Platelet Count 105 X10*3/uL (160-400); Red Blood Count 3.46 X10*6/uL (4.60-5.80); Red Cell Distribution Width 16.4 % (11.0-16.0); White Blood Count 8.6 X10*3/uL (4.8-10.8)
[2020-08-31 22:08] LABS: Ethanol 347 mg/dL
[2020-08-31 22:15] LABS: Alanine Aminotransferase 21 U/L (0-40); Albumin Level 3.5 g/dL (3.5-5.0); Alkaline Phosphatase 104 U/L (39-117); Anion Gap 17 (12-20); Aspartate Amino Transferase 34 U/L (5-37); Bilirubin Total 0.7 mg/dL (0.0-1.0); Blood Urea Nitrogen 4 mg/dL (9-16); Calcium 8.2 mg/dL (8.4-10.2); Carbon Dioxide 15 mmol/L (22-29); Chloride 102 mmol/L (96-108); Creatinine Clr Calc Pharmacy 167.7; Estimated Glomerular Filt Rate > 60; Glucose Random 153 mg/dL (60-115); Potassium 3.2 mmol/L (3.3-5.1); Sodium 131 mmol/L (135-145)
--- NOTE | 2020-08-31 22:46 | ED_ITS ---
HPI - General Adult General Chief complaint: ETOH/Substance Use Stated complaint: ETOH Time Seen by Provider: 08/31/20 21:06 Source: EMS Mode of arrival: EMS Limitations: altered mental status (Appears intoxicated) History of Present Illness HPI narrative: 59-year-old male who presents emergency department for altered level of consciousness. The patient was found unresponsive by bystanders who called 911. The patient is well known to the emergency department has been seen here frequently for alcohol intoxication and atrial fibrillation with rapid ventricular response. He was found to be COVID-19 positive on 08/18/2020. He was admitted on 08/27/2020 with elevated high sensitivity troponin which is felt to be secondary to his COVID-19 infection and cardiomyopathy/alcohol abuse. The patient is acutely intoxicated on presentation and not able to give a history. Related Data Home Medications Medication Instructions Recorded Confirmed aspirin 81 mg PO DAILY 01/22/20 08/28/20 atorvastatin 40 mg PO BEDTIME 01/22/20 08/28/20 furosemide 40 mg PO BID 01/22/20 08/28/20 multivitamin [One Daily 1 tab PO DAILY 01/22/20 08/28/20 Multivitamin] spironolactone 25 mg PO DAILY 01/22/20 08/28/20 fluoxetine 20 mg PO DAILY 05/02/20 08/28/20 tamsulosin 0.4 mg PO DAILY 05/02/20 08/28/20 Lantus Solostar U-100 Insulin 6 unit SUBCUT QAM 08/18/20 08/28/20 ammonium lactate 1 appl TOPICAL BID 08/18/20 08/28/20 apixaban 5 mg PO BID 08/18/20 08/28/20 gabapentin 1 cap PO TID 08/18/20 08/28/20 metformin 1 tab PO BID 08/18/20 08/28/20 trazodone 1 tab PO BEDTIME 08/18/20 08/28/20 Previous Rx's Medication Instructions Recorded folic acid 1 mg PO DAILY 30 Days #30 tab 08/30/20 metoprolol tartrate 50 mg PO BID 30 Days #60 tab 08/30/20 omeprazole 20 mg PO DAILY@0630 30 Days #30 cap 08/30/20 thiamine mononitrate (vit B1) 100 mg PO DAILY 30 Days #30 tab 08/30/20 Allergies Allergy/AdvReac Type Severity Reaction Status Date / Time Penicillins [PCN] Allergy Unknown UNKNOWN Verified 08/24/20 15:20 Review of Systems Review of Systems: Yes all other systems are reviewed and are negative [facility] Past Medical History Medical History A-fib CAD (coronary artery disease) Cardiomyopathy CHF (congestive heart failure) Cirrhosis Depression Diabetes ETOH abuse HTN (hypertension) Social History Social History Household Members: None Housing: Other Housing Other:: Room above bar Do you presently have visiting nurse or other home services: No Alcohol intake: current Alcohol intake frequency: 3 or more drinks per day Alcohol type: beer Smoking Status: Never smoker Advance Directives: No Advance Directives Information Provided: No service: No Current occupational status: unemployed Physical Exam Vital Signs: Vital Signs: Last Vital Signs Temp 97.6 F 08/31/20 21:15 Pulse 98 09/01/20 00:39 Resp 16 09/01/20 00:39 BP 134/76 08/31/20 22:59 Pulse Ox 98 09/01/20 00:39 Body Mass Index 35.6 Const: Other: Disheveled male, acutely intoxicated, not answering questions, response to painful stimuli HENMT: Head: Yes normal to inspection, Yes normocephalic and Yes atraumatic Ears: external ears normal General nose exam: Normal external nose present Face and sinus: Yes normal facial exam Mouth: Normal oral and palatal mucosa present Throat: Yes posterior oropharynx normal Eyes: Periorbital: periorbital findings normal Eyelids: Yes eyelids normal Conjunctivae: conjunctivae normal Sclerae: sclerae normal Corneas: corneas normal Pupils: Equal, round and reactive pupils present Direct Ophthalmoscopy: normal light reflex Neck: Neck: Yes full ROM, Yes no lymphadenopathy, Yes no meningeal signs, Yes trachea midline and Yes supple Chest: Chest palpation & inspection: normal inspection of the chest and normal palpation of entire chest wall Resp: Effort & Inspection: normal respiratory effort Auscultation: clear to auscultation bilaterally Cardio: Rate: regular rate Rhythm: regular rhythm Heart sounds: S1 normal heart sound present, S2 normal heart sound present and no murmurs GI: Inspection: Yes normal to inspection Palpation (GI): Soft to palpation, nontender, no guarding and not rigid : General: Yes no CVA tenderness Back/Spine/Pelvis: Back: no CVA tenderness Cervical Spine: normal cervical lordosis Thoracic/Lumbar Spine: thoracic and lumbar spine normal to inspection Neuro: Other: Acutely intoxicated, moves all extremities symmetrically General: no meningeal signs Cranial nerves: Yes Equal, round and reactive pupils present Extrem: General: Yes normal to inspection and Yes full ROM Psych: Appearance: disheveled Course Course Course Narrative: 59-year-old male, well known to emergency department, seen here frequently for atrial fibrillation with rapid ventricular response and acute alcohol intoxication. Patient was recently diagnosed with COVID-19 08/18/2020 and was admitted on 08/27/2020 for elevated troponin felt to be secondary to a COVID cardiomyopathy verses alcoholic cardiomyopathy. Patient's examination is consistent with acute alcohol intoxication. I did order laboratory evaluation on the patient. 0249: Evaluation revealed chronic anemia with an H&H of 11.1 and 33.6. His slightly low potassium of 3.2 and a low bicarb of 15. His ethanol level was elevated of 347. The patient is still intoxicated. He will be placed in physician observation and signed out to my colleague, Dr. Argueta. Physician observation started at 0249. Patient placed in physician observation because the patient needed more time to sober up and to be observed for possible respiratory distress. At the time observation was started the patient's vitals were stable, patient is somnolent but arousable, Neuro: nonfocal, CV RRR, Lungs clear. Medical Decision Making Lab Data Result diagrams: 08/31/20 21:51 08/31/20 21:40 Labs: Lab Results 08/31/20 08/31/20 08/31/20 Range/Units 21:40 21:40 21:51 WBC 8.6 (4.8-10.8) X10*3/uL RBC 3.46 L (4.60-5.80) X10*6/uL Hgb 11.1 L (14.0-18.0) g/dl Hct 33.6 L (42-52) % MCV 97.1 (80-98) fL MCH 32.1 (27.0-33.0) pg MCHC 33.0 (31.0-36.0) g/dl RDW 16.4 H (11.0-16.0) % Plt Count 105 L (160-400) X10*3/uL MPV 10.3 (9.4-12.4) fL Immature Gran % (Auto) 0.5 H (0.0-0.4) % Neut % (Auto) 72.2 (45-73) % Lymph % (Auto) 19.7 L (20-40) % [place] % (Auto) 6.1 (2-11) % Eos % (Auto) 1.3 (0-4) % Baso % (Auto) 0.2 (0-2) % Lymph # (Auto) 1.7 (1.2-4.9) X10*3/uL [place] # (Auto) 0.5 (0.1-1.2) X10*3/uL Eos # (Auto) 0.1 (0.0-0.4) X10*3/uL Baso # (Auto) 0.0 (0.0-0.2) X10*3/uL Abs Immat Gran (auto) 0.04 H (0.00-0.03) X10*3/uL Absolute Neuts (auto) 6.2 (2.0-8.3) X10*3/uL Absolute Nucleated RBC 0.000 (0.0-0.012) X10*3/uL Nucleated RBC % (auto) 0.0 (0.0-0.2) /100WBC Sodium 131 L (135-145) mmol/L Potassium 3.2 L (3.3-5.1) mmol/L Chloride 102 (96-108) mmol/L Carbon Dioxide 15 L (22-29) mmol/L Anion Gap 17 (12-20) BUN 4 L (9-16) mg/dL Creatinine 0.64 (0.5-1.4) mg/dL Estim Creat Clear Calc 167.7 Estimated GFR > 60 Random Glucose 153 H (60-115) mg/dL Calcium 8.2 L (8.4-10.2) mg/dL Total Bilirubin 0.7 (0.0-1.0) mg/dL AST 34 (5-37) U/L ALT 21 (0-40) U/L Alkaline Phosphatase 104 (39-117) U/L Total Protein 7.0 (6.5-8.0) g/dL Albumin 3.5 (3.5-5.0) g/dL Ethyl Alcohol 347 H* mg/dL Discharge Plan Discharge Clinical Impression: Acute alcohol intoxication Prescriptions: No Action tamsulosin 0.4 mg Capsule 0.4 mg PO DAILY RF: 0 fluoxetine 20 mg Capsule 20 mg PO DAILY RF: 0 trazodone 50 mg tablet 1 tab PO BEDTIME RF: 0 gabapentin 400 mg capsule 1 cap PO TID RF: 0 metformin 1,000 mg tablet 1 tab PO BID RF: 0 Lantus Solostar U-100 Insulin 100 unit/mL (3 mL) insulin pen 6 unit subcut QAM RF: 0 ammonium lactate 12 % cream 1 appl topical BID RF: 0 apixaban 5 mg Tablet 5 mg PO BID RF: 0 multivitamin [One Daily Multivitamin] Tablet 1 tab PO DAILY RF: 0 furosemide 40 mg tablet 40 mg PO BID RF: 0 atorvastatin 40 mg tablet 40 mg PO BEDTIME RF: 0 aspirin 81 mg tablet,delayed release (DR/EC) 81 mg PO DAILY RF: 0 spironolactone 25 mg tablet 25 mg PO DAILY RF: 0 metoprolol tartrate 50 mg Tablet 50 mg PO BID 30 Days Qty: 60 RF: 0 omeprazole 20 mg Capsule,Delayed Release(Dr/Ec) 20 mg PO DAILY@0630 30 Days Qty: 30 RF: 0 folic acid 1 mg Tablet 1 mg PO DAILY 30 Days Qty: 30 RF: 0 thiamine mononitrate (vit B1) 100 mg Tablet 100 mg PO DAILY 30 Days Qty: 30 RF: 0
[2020-08-31 22:59] VITALS: BP 134/76; RESP 16
[2020-09-01 00:39] VITALS: PULSE 98; RESP 16; O2SAT 98
[2020-09-01 03:04] VITALS: BP 144/81; PULSE 110; RESP 14; O2SAT 97
--- NOTE | 2020-09-01 03:10 | PC.NURSE ---
Pt remains asleep in bed at this time, wakes easily to voice. Voiding easily in bedside urinal. SAINZ sent for analysis. VSS. Continue to monitor.
[2020-09-01 03:45] LABS: Amphetamine Screen Urine Not Detected (Not Detect); Barbiturates, Urine POSITIVE (Not Detect); Benzodiazepines Screen Urine Not Detected (Not Detect); Cannabinoid Screen Urine Not Detected (Not Detect); Cocaine Screen Urine Not Detected (Not Detect); Opiate Screen Urine Not Detected (Not Detect); Phencyclidine Screen Urine Not Detected (Not Detect)
[2020-09-01 06:31] VITALS: BP 139/83; PULSE 106; RESP 16; O2SAT 99
--- NOTE | 2020-09-01 06:31 | PC.NURSE ---
Pt remains asleep in bed in NAD. Pt sleeping through the night, voiding in the bedside urinal without difficulty. Pt wakes easily to verbal stimuli, denies pain. VSS. Plan to DC when sober.
--- NOTE | 2020-09-01 07:36 | PC.NURSE ---
patient given coffee, aox3. lower extremties has discoloration. denies pain. void in bedside urinal. steady gait at baseline with cane . self dressed. plan for van to [address] [place].
== END 2020-09-01 07:47 | disposition home or self-care (01) ==
PROVIDERS: Emergency Provider Emergency Medicine Emergency Medical Services
DX: F10.120 Alcohol abuse with intoxication, uncomplicated (principal); Y90.8 Blood alcohol level of 240 mg/100 ml or more; I10 Essential (primary) hypertension; E11.9 Type 2 diabetes mellitus without complications; I48.91 Unspecified atrial fibrillation
CPT/HCPCS: 36415; 80053; 80307; 80320; 85025; 93005; 99284

== ENCOUNTER 2020-09-02 03:10 | Emergency (ER) | payer MEDICARE, MEDICAID, SELFPAY ==
[2020-09-02] VITALS (7 sets, daily range): BP systolic 135–166; BP diastolic 80–99; PULSE 95–115; RESP 16–20; TEMP 36.7; O2SAT 95–98
--- NOTE | 2020-09-02 03:14 | ED.ALCOHOL ---
HPI - Alcohol General Stated Complaint: ETOH/COVID Time Seen by Provider: 09/02/20 03:14 Source: EMS Mode of arrival: EMS Limitations: altered mental status History of Present Illness HPI narrative: Patient comes emergency room complaining of alcohol intoxication. Patient was found by [employer] sleeping on a bench. EMS was called and brought to the emergency room. Patient states that he drank 6 beers. Patient denies chest pain or shortness of breath, states he did not fall. Patient is acutely intoxicated, unable to give any significant history. MD complaint: alcohol intoxication Related Data Home Medications Medication Instructions Recorded Confirmed aspirin 81 mg PO DAILY 01/22/20 08/28/20 atorvastatin 40 mg PO BEDTIME 01/22/20 08/28/20 furosemide 40 mg PO BID 01/22/20 08/28/20 multivitamin [One Daily 1 tab PO DAILY 01/22/20 08/28/20 Multivitamin] spironolactone 25 mg PO DAILY 01/22/20 08/28/20 fluoxetine 20 mg PO DAILY 05/02/20 08/28/20 tamsulosin 0.4 mg PO DAILY 05/02/20 08/28/20 Lantus Solostar U-100 Insulin 6 unit SUBCUT QAM 08/18/20 08/28/20 ammonium lactate 1 appl TOPICAL BID 08/18/20 08/28/20 apixaban 5 mg PO BID 08/18/20 08/28/20 gabapentin 1 cap PO TID 08/18/20 08/28/20 metformin 1 tab PO BID 08/18/20 08/28/20 trazodone 1 tab PO BEDTIME 08/18/20 08/28/20 Previous Rx's Medication Instructions Recorded folic acid 1 mg PO DAILY 30 Days #30 tab 08/30/20 metoprolol tartrate 50 mg PO BID 30 Days #60 tab 08/30/20 omeprazole 20 mg PO DAILY@0630 30 Days #30 cap 08/30/20 thiamine mononitrate (vit B1) 100 mg PO DAILY 30 Days #30 tab 08/30/20 Allergies Allergy/AdvReac Type Severity Reaction Status Date / Time Penicillins [PCN] Allergy Unknown UNKNOWN Verified 08/24/20 15:20 Review of Systems Review of Systems: Yes Unobtainable due to mental status PMFSH Past Medical History Medical History A-fib CAD (coronary artery disease) Cardiomyopathy CHF (congestive heart failure) Cirrhosis Depression Diabetes ETOH abuse HTN (hypertension) Social History Social History Household Members: None Housing: Other Housing Other:: Room above bar Do you presently have visiting nurse or other home services: No Alcohol intake: current Alcohol intake frequency: 3 or more drinks per day Alcohol type: beer Smoking Status: Never smoker service: No Current occupational status: unemployed Physical Exam Vital Signs: Appearance: Alert. Somnolent but easily arousable, disheveled, incontinent of urine, intoxicated Eyes: Pupils equal, round and reactive to light. ENT: Pharynx normal. Neck: Normal inspection. Neck supple. No lymph nodes noted. No crepitus CVS: Normal heart rate and rhythm. Pulses normal. Normal S1 and S2 Respiratory: No respiratory distress. Breath sounds normal. No Wheezing. No rales Abdomen: Soft and nontender. No rigidity. No distention. Skin: Skin warm and dry. Normal skin color. Normal skin turgor. Extremities: No lower extremity edema. Chronic venous stasis bilaterally Neuro: Cranial nerves 2-12 grossly intact Discharge Plan Discharge Prescriptions: No Action tamsulosin 0.4 mg Capsule 0.4 mg PO DAILY RF: 0 fluoxetine 20 mg Capsule 20 mg PO DAILY RF: 0 trazodone 50 mg tablet 1 tab PO BEDTIME RF: 0 gabapentin 400 mg capsule 1 cap PO TID RF: 0 metformin 1,000 mg tablet 1 tab PO BID RF: 0 Lantus Solostar U-100 Insulin 100 unit/mL (3 mL) insulin pen 6 unit subcut QAM RF: 0 ammonium lactate 12 % cream 1 appl topical BID RF: 0 apixaban 5 mg Tablet 5 mg PO BID RF: 0 multivitamin [One Daily Multivitamin] Tablet 1 tab PO DAILY RF: 0 furosemide 40 mg tablet 40 mg PO BID RF: 0 atorvastatin 40 mg tablet 40 mg PO BEDTIME RF: 0 aspirin 81 mg tablet,delayed release (DR/EC) 81 mg PO DAILY RF: 0 spironolactone 25 mg tablet 25 mg PO DAILY RF: 0 metoprolol tartrate 50 mg Tablet 50 mg PO BID 30 Days Qty: 60 RF: 0 omeprazole 20 mg Capsule,Delayed Release(Dr/Ec) 20 mg PO DAILY@0630 30 Days Qty: 30 RF: 0 folic acid 1 mg Tablet 1 mg PO DAILY 30 Days Qty: 30 RF: 0 thiamine mononitrate (vit B1) 100 mg Tablet 100 mg PO DAILY 30 Days Qty: 30 RF: 0
== END 2020-09-02 18:24 | disposition home or self-care (01) ==
PROVIDERS: Emergency Provider Emergency Medicine Emergency Medical Services
DX: F10.120 Alcohol abuse with intoxication, uncomplicated (principal); Y90.9 Presence of alcohol in blood, level not specified; I48.91 Unspecified atrial fibrillation; I11.0 Hypertensive heart disease with heart failure; I50.9 Heart failure, unspecified; E11.9 Type 2 diabetes mellitus without complications; Z86.16 Personal history of COVID-19; Z79.82 Long term (current) use of aspirin; Z79.4 Long term (current) use of insulin
CPT/HCPCS: 99284; 99285

== ENCOUNTER 2020-09-03 15:34 | Emergency (ER) | payer MEDICARE, MEDICAID, SELFPAY ==
--- NOTE | ~2020-09-03 | XR_ITS ---
EXAMINATION: CHEST 2 VIEWS CLINICAL INFORMATION: Intoxicated history of CHF . COMPARISON: 08/27/2020. TECHNIQUE: AP frontal and lateral views of the chest obtained FINDINGS: Lungs well-expanded. Chronic appearing coarsened reticular markings are seen with central vascular prominence, peribronchial cuffing, and mild indistinctness to the vessels suggesting mild pulmonary edema. No significant effusion or pneumothorax. Cardiac silhouette is prominent but unchanged. XR/XR chest 2V IMPRESSION: Mild central vascular prominence and increased interstitial markings. Mild interstitial edema cannot be excluded. There is more focal airspace disease the right base possibly due to right basilar consolidation/atelectasis which has progressed from the prior study
[2020-09-03 15:38] VITALS: BP 138/70; PULSE 100; O2SAT 98
[2020-09-03 16:05] VITALS: BP 118/61; PULSE 101; RESP 18; TEMP 36.7; O2SAT 97; BMI 36.6
[2020-09-03 16:15] LABS: Glucose, Whole Blood 215 mg/dL (60-115)
[2020-09-03 17:40] LABS: MANUAL DIFF FLAG NO
[2020-09-03 17:42] LABS: Basophils Percent Auto 0.5 % (0-2); Eosinophils Absolute Auto 0.1 X10*3/uL (0.0-0.4); Eosinophils Percent Auto 1.5 % (0-4); Hematocrit 33.7 % (42-52); Hemoglobin 10.8 g/dl (14.0-18.0); Imm Gran Abs Auto 0.01 X10*3/uL (0.00-0.03); Imm Gran Pct Auto 0.2 % (0.0-0.4); Lymphocytes Absolute Auto 1.3 X10*3/uL (1.2-4.9); Mean Corpuscular Hemoglobin 31.3 pg (27.0-33.0); Mean Corpuscular Volume 97.7 fL (80-98); Mean Platelet Volume 9.4 fL (9.4-12.4); Monocytes Absolute Auto 0.8 X10*3/uL (0.1-1.2); Monocytes Percent Auto 12.8 % (2-11); Neutrophils Absolute Auto 3.8 X10*3/uL (2.0-8.3); Platelet Count 121 X10*3/uL (160-400); Red Blood Count 3.45 X10*6/uL (4.60-5.80); Red Cell Distribution Width 16.7 % (11.0-16.0); White Blood Count 5.9 X10*3/uL (4.8-10.8)
[2020-09-03 17:50] LABS: INTERNATIONAL NORM RATIO 1.2 (0.9-1.1); Prothrombin Time 14.5 SEC (10.8-13.0)
[2020-09-03 17:51] LABS: Appearance Urine CLEAR; Color Urine YELLOW; Glucose Urine UA 250 MG/DL (NEG); Leukocyte Esterase Urine NEG (NEG); Nitrite Urine NEG (NEG); PH 5.5 (5.0-8.0); Specific Gravity - Urine <= 1.005 (1.005-1.025); Urine Blood 1+ (NEG); Urine Ketones NEG (NEG); Urine Protein 1+ MG/DL (NEG-TRACE)
[2020-09-03 17:56] LABS: Bacteria Urine TRACE /LPF; RBC Urine 0-2 /HPF (0); WBC Urine 0 /HPF (0-4)
[2020-09-03 18:06] LABS: Ethanol 198 mg/dL
[2020-09-03 18:12] LABS: Amphetamine Screen Urine Not Detected (Not Detect); Barbiturates, Urine POSITIVE (Not Detect); Benzodiazepines Screen Urine Not Detected (Not Detect); Cannabinoid Screen Urine Not Detected (Not Detect); Cocaine Screen Urine Not Detected (Not Detect); Opiate Screen Urine Not Detected (Not Detect); Phencyclidine Screen Urine Not Detected (Not Detect)
[2020-09-03 18:14] LABS: Alanine Aminotransferase 25 U/L (0-40); Albumin Level 3.4 g/dL (3.5-5.0); Alkaline Phosphatase 117 U/L (39-117); Anion Gap 16 (12-20); Aspartate Amino Transferase 37 U/L (5-37); Bilirubin Total 0.7 mg/dL (0.0-1.0); Blood Urea Nitrogen 3 mg/dL (9-16); Calcium 8.3 mg/dL (8.4-10.2); Carbon Dioxide 21 mmol/L (22-29); Chloride 104 mmol/L (96-108); Creatinine Clr Calc Pharmacy 155.4; Estimated Glomerular Filt Rate > 60; Glucose Random 228 mg/dL (60-115); Lipase 9 U/L (8-78); Magnesium 1.5 mg/dL (1.6-2.6); Potassium 3.5 mmol/L (3.3-5.1); Sodium 137 mmol/L (135-145); Total Protein 6.9 g/dL (6.5-8.0)
[2020-09-03 18:42] VITALS: RESP 16
--- NOTE | 2020-09-03 19:04 | ED_ITS ---
HPI - Alcohol General Chief Complaint: ETOH/Substance Use Stated Complaint: etoh covid Time Seen by Provider: 09/03/20 16:36 Source: patient and EMS Mode of arrival: EMS Limitations: other (Intoxicated and poor historian) History of Present Illness HPI narrative: 59-year-old male with a past medical history of atrial fibrillation, coronary artery disease, cardiomyopathy, CHF, hypertension, diabetes, alcoholic liver cirrhosis, alcohol dependent, varicose veins of lower extremity with inflammation, recent diagnosis with COVID-19 on 08/18/2020 with recent admission on 08/27/2020 for elevated troponin felt to be secondary to COVID cardiomyopathy versus alcoholic cardiomyopathy presenting to the ED after the patient flagged down a bystander and the bystander noted that he was stumbling and intoxicated therefore called EMS and patient was brought via EMS. He reports that he did not drink like he normally does today. He denies any symptoms at this time. Although patient is very intoxicated and hard to underst and with slurred speech and EtOH on odor. No signs of trauma noted. Patient reports he is not homeless he has his own apartment. He denies any SI/HI/auditory visual sedation thoughts of self-injury. He is not interested in detox. MD complaint: alcohol intoxication and alcohol dependence Last drink: Just prior to admission Chronic alcohol use: Yes Previous visits for alcohol intoxication: Yes Recent trauma: No Associated symptoms: denies other symptoms Treatments prior to arrival: none Related Data Home Medications Medication Instructions Recorded Confirmed aspirin 81 mg PO DAILY 01/22/20 08/28/20 atorvastatin 40 mg PO BEDTIME 01/22/20 08/28/20 furosemide 40 mg PO BID 01/22/20 08/28/20 multivitamin [One Daily 1 tab PO DAILY 01/22/20 08/28/20 Multivitamin] spironolactone 25 mg PO DAILY 01/22/20 08/28/20 fluoxetine 20 mg PO DAILY 05/02/20 08/28/20 tamsulosin 0.4 mg PO DAILY 05/02/20 08/28/20 Lantus Solostar U-100 Insulin 6 unit SUBCUT QAM 08/18/20 08/28/20 ammonium lactate 1 appl TOPICAL BID 08/18/20 08/28/20 apixaban 5 mg PO BID 08/18/20 08/28/20 gabapentin 1 cap PO TID 08/18/20 08/28/20 metformin 1 tab PO BID 08/18/20 08/28/20 trazodone 1 tab PO BEDTIME 08/18/20 08/28/20 Previous Rx's Medication Instructions Recorded folic acid 1 mg PO DAILY 30 Days #30 tab 08/30/20 metoprolol tartrate 50 mg PO BID 30 Days #60 tab 08/30/20 omeprazole 20 mg PO DAILY@0630 30 Days #30 cap 08/30/20 thiamine mononitrate (vit B1) 100 mg PO DAILY 30 Days #30 tab 08/30/20 Allergies Allergy/AdvReac Type Severity Reaction Status Date / Time Penicillins [PCN] Allergy Unknown UNKNOWN Verified 09/03/20 16:05 Review of Systems Review of Systems: Constitutional : No Fever, No Chills ENT/Mouth : No Ear Pain, No Nasal Congestion, No sore throat Eyes: No Eye Pain, No Swelling, No Redness Cardiovascular : No Chest Pain, No SOB Respiratory : No Cough, No Sputum, No Dyspnea Gastrointestinal : No ingestions, No Nausea, No Vomiting, No Diarrhea, No Hematochezia, No Melena Genitourinary : No Dysuria, No Urinary Frequency, No Hematuria Musculoskeletal : No Myalgias Skin : No Skin Lesions, No rash Neuro : No Weakness, No Numbness, No Paresthesias, No Dizziness, No Headache Psych : + alcohol intoxication, No Anxiety, No Depression, No SI, No thoughts of self injury, No HI, No AVH, Heme/Lymph: No Lymphadenopathy Endocrine : No Polyuria, No Polydipsia Yes all other systems are reviewed and are negative [facility] Past Medical History Attestation statement: The following information was validated with the patient. Medical History A-fib CAD (coronary artery disease) Cardiomyopathy CHF (congestive heart failure) Cirrhosis Depression Diabetes ETOH abuse HTN (hypertension) Social History Social History Household Members: None Housing: Other Housing Other:: Room above bar Do you presently have visiting nurse or other home services: No Alcohol intake: current Alcohol intake frequency: 3 or more drinks per day Alcohol type: hard liquor Smoking Status: Never smoker Advance Directives: No Advance Directives Information Provided: No service: No Current occupational status: unemployed Physical Exam Vital Signs: Vital Signs: Last Vital Signs Temp 97.5 F 09/03/20 20:05 Pulse 118 H 09/03/20 20:05 Resp 22 H 09/03/20 20:05 BP 136/77 09/03/20 20:05 Pulse Ox 97 09/03/20 20:05 Body Mass Index 36.6 vital signs have been reviewed as normal and appeared to be correct. Blood pressure normal. Heart rate tachycardic at 101. Respiration rate normal. Temperature normal. Oxygen saturation normal. Appearance: Alert although intoxicated and disheveled is answering questions. Oriented X3. No acute distress. Head: Normal external exam. Normocephalic. Atraumatic. No Mari signs noted. No raccoon eyes noted Eyes: PERRLA. EOMI. Conjunctiva and sclera normal. Eyelids normal. ENT: EAC normal. TM's Normal. Pharynx normal. Uvula midline. Moist mucous membranes. No trismus noted. No drooling noted. No muffled voice noted. Neck: Normal inspection. Neck supple. FROM. No adenopathy. Thyroid Normal. No meningeal signs. No neck mass noted. CVS: Normal heart rate and rhythm. Heart sound normal. No murmurs noted. Pulses normal throughout. Respiratory: No respiratory distress. Painless inspiration. Breath sounds normal. No wheezes/rales/rhonchi noted. Chest nontender. No accessory muscle usage noted or decreased air movement noted. Abdomen: Soft and nontender. Bowel sounds normal in all 4 quadrants. No distention noted. No organomegaly noted. No visible injury noted. Back: No CVA tenderness. Full range of motion noted. Skin: Skin warm and dry. Normal skin color. Normal skin turgor. No rashes/lesions/lacerations noted. Extremities: No lower extremity edema. Extremities exhibit normal range of motion. Extremities nontender. Neuro: Oriented X 3. No motor deficit. No sensory deficit. Reflexes normal. Psych: Appearance grossly normal, well-kept, mental status normal, speech and movement normal, speech clear, normal affect. Is cooperative. Patient does not have normal thought process/thought contact and does not have good insight or judgment. Course Course Course Narrative: 20pm - labs reviewed and patient with a mild baseline anemia similar compared to prior. Carbon dioxide 21. BUN 3. Random glucose 228. Magnesium 1.5. BNP 222. UA revealed 250 for glucose otherwise no evidence of UTI. Patient positive for barbiturates negative for all other drugs. ETOH level 198. EKG is atrial fibrillation with ventricular rate in the 90s no acute ischemic changes similar when compared to prior. - therefore at this time patient is medically cleared and placed on physician observation because the patient needs more time to sober up to be able to be discharged home. Will continue to monitor. MDM - Alcohol MDM Narrative Medical decision making narrative: 16:50pm -59-year-old male who is well-known to the emergency department seen here frequently for atrial fibrillation with rapid ventricular response and acute alcohol intoxication who was recently diagnosed with COVID 19 on 08/18/2020 and admitted on 08/27/2020 for elevated troponin felt to be secondary to COVID-19 cardiomyopathy versus alcoholic cardiomyopathy presenting to the ED with acute alcohol intoxication. He denies any symptoms at this time although I will order labs, chest x-ray and EKG along with a urine then re-evaluate. Medical Records Attestation: I reviewed the patient's medical records. Lab Data Attestation: I reviewed the patient's lab results. Result diagrams: 09/03/20 17:34 09/03/20 17:34 Labs: Lab Results 09/03/20 09/03/20 09/03/20 Range/Units 16:11 17:34 17:34 WBC 5.9 (4.8-10.8) X10*3/uL RBC 3.45 L (4.60-5.80) X10*6/uL Hgb 10.8 L (14.0-18.0) g/dl Hct 33.7 L (42-52) % MCV 97.7 (80-98) fL MCH 31.3 (27.0-33.0) pg MCHC 32.0 (31.0-36.0) g/dl RDW 16.7 H (11.0-16.0) % Plt Count 121 L (160-400) X10*3/uL MPV 9.4 (9.4-12.4) fL Immature Gran % (Auto) 0.2 (0.0-0.4) % Neut % (Auto) 64.0 (45-73) % Lymph % (Auto) 21.0 (20-40) % Cannon % (Auto) 12.8 H (2-11) % Eos % (Auto) 1.5 (0-4) % Baso % (Auto) 0.5 (0-2) % Lymph # (Auto) 1.3 (1.2-4.9) X10*3/uL Cannon # (Auto) 0.8 (0.1-1.2) X10*3/uL Eos # (Auto) 0.1 (0.0-0.4) X10*3/uL Baso # (Auto) 0.0 (0.0-0.2) X10*3/uL Abs Immat Gran (auto) 0.01 (0.00-0.03) X10*3/uL Absolute Neuts (auto) 3.8 (2.0-8.3) X10*3/uL Absolute Nucleated RBC 0.000 (0.0-0.012) X10*3/uL Nucleated RBC % (auto) 0.0 (0.0-0.2) /100WBC Hold Purple Top SEE NOTE PT (10.8-13.0) SEC INR (0.9-1.1) Sodium (135-145) mmol/L Potassium (3.3-5.1) mmol/L Chloride (96-108) mmol/L Carbon Dioxide (22-29) mmol/L Anion Gap (12-20) BUN (9-16) mg/dL Creatinine (0.5-1.4) mg/dL Estim Creat Clear Calc Estimated GFR POC Glucose 215 H (60-115) mg/dL Random Glucose (60-115) mg/dL Calcium (8.4-10.2) mg/dL Magnesium (1.6-2.6) mg/dL Total Bilirubin (0.0-1.0) mg/dL AST (5-37) U/L ALT (0-40) U/L Alkaline Phosphatase (39-117) U/L B-Natriuretic Peptide (<100) pg/mL Total Protein (6.5-8.0) g/dL Albumin (3.5-5.0) g/dL Lipase (8-78) U/L Urine Color Urine Appearance Urine pH (5.0-8.0) Ur Specific [place] (1.005-1.025) Urine Protein (NEG-TRACE) MG/DL Urine Glucose (UA) (NEG) MG/DL Urine Ketones (NEG) MG/DL Urine Blood (NEG) Urine Nitrite (NEG) Ur Leukocyte Esterase (NEG) Urine RBC (0) /HPF Urine WBC (0-4) /HPF Ur Squamous Epith Cells /LPF Urine Bacteria /LPF Urine Opiates Screen (Not Detect) Ur Barbiturates Screen (Not Detect) Ur Phencyclidine Scrn (Not Detect) Ur Amphetamines Screen (Not Detect) U Benzodiazepines Scrn (Not Detect) Urine Cocaine Screen (Not Detect) U Marijuana (THC) Screen (Not Detect) Ethyl Alcohol mg/dL 09/03/20 09/03/20 09/03/20 Range/Units 17:34 17:34 17:34 WBC (4.8-10.8) X10*3/uL RBC (4.60-5.80) X10*6/uL Hgb (14.0-18.0) g/dl Hct (42-52) % MCV (80-98) fL MCH (27.0-33.0) pg MCHC (31.0-36.0) g/dl RDW (11.0-16.0) % Plt Count (160-400) X10*3/uL MPV (9.4-12.4) fL Immature Gran % (Auto) (0.0-0.4) % Neut % (Auto) (45-73) % Lymph % (Auto) (20-40) % Cannon % (Auto) (2-11) % Eos % (Auto) (0-4) % Baso % (Auto) (0-2) % Lymph # (Auto) (1.2-4.9) X10*3/uL Cannon # (Auto) (0.1-1.2) X10*3/uL Eos # (Auto) (0.0-0.4) X10*3/uL Baso # (Auto) (0.0-0.2) X10*3/uL Abs Immat Gran (auto) (0.00-0.03) X10*3/uL Absolute Neuts (auto) (2.0-8.3) X10*3/uL Absolute Nucleated RBC (0.0-0.012) X10*3/uL Nucleated RBC % (auto) (0.0-0.2) /100WBC Hold Purple Top PT 14.5 H (10.8-13.0) SEC INR 1.2 H (0.9-1.1) Sodium 137 (135-145) mmol/L Potassium 3.5 (3.3-5.1) mmol/L Chloride 104 (96-108) mmol/L Carbon Dioxide 21 L (22-29) mmol/L Anion Gap 16 (12-20) BUN 3 L (9-16) mg/dL Creatinine 0.70 (0.5-1.4) mg/dL Estim Creat Clear Calc 155.4 Estimated GFR > 60 POC Glucose (60-115) mg/dL Random Glucose 228 H D (60-115) mg/dL Calcium 8.3 L (8.4-10.2) mg/dL Magnesium 1.5 L (1.6-2.6) mg/dL Total Bilirubin 0.7 (0.0-1.0) mg/dL AST 37 (5-37) U/L ALT 25 (0-40) U/L Alkaline Phosphatase 117 (39-117) U/L B-Natriuretic Peptide (<100) pg/mL Total Protein 6.9 (6.5-8.0) g/dL Albumin 3.4 L (3.5-5.0) g/dL Lipase 9 (8-78) U/L Urine Color Urine Appearance Urine pH (5.0-8.0) Ur Specific [place] (1.005-1.025) Urine Protein (NEG-TRACE) MG/DL Urine Glucose (UA) (NEG) MG/DL Urine Ketones (NEG) MG/DL Urine Blood (NEG) Urine Nitrite (NEG) Ur Leukocyte Esterase (NEG) Urine RBC (0) /HPF Urine WBC (0-4) /HPF Ur Squamous Epith Cells /LPF Urine Bacteria /LPF Urine Opiates Screen (Not Detect) Ur Barbiturates Screen (Not Detect) Ur Phencyclidine Scrn (Not Detect) Ur Amphetamines Screen (Not Detect) U Benzodiazepines Scrn (Not Detect) Urine Cocaine Screen (Not Detect) U Marijuana (THC) Screen (Not Detect) Ethyl Alcohol 198 mg/dL 09/03/20 09/03/20 09/03/20 Range/Units 17:34 17:34 17:34 WBC (4.8-10.8) X10*3/uL RBC (4.60-5.80) X10*6/uL Hgb (14.0-18.0) g/dl Hct (42-52) % MCV (80-98) fL MCH (27.0-33.0) pg MCHC (31.0-36.0) g/dl RDW (11.0-16.0) % Plt Count (160-400) X10*3/uL MPV (9.4-12.4) fL Immature Gran % (Auto) (0.0-0.4) % Neut % (Auto) (45-73) % Lymph % (Auto) (20-40) % Cannon % (Auto) (2-11) % Eos % (Auto) (0-4) % Baso % (Auto) (0-2) % Lymph # (Auto) (1.2-4.9) X10*3/uL [place] # (Auto) (0.1-1.2) X10*3/uL Eos # (Auto) (0.0-0.4) X10*3/uL Baso # (Auto) (0.0-0.2) X10*3/uL Abs Immat Gran (auto) (0.00-0.03) X10*3/uL Absolute Neuts (auto) (2.0-8.3) X10*3/uL Absolute Nucleated RBC (0.0-0.012) X10*3/uL Nucleated RBC % (auto) (0.0-0.2) /100WBC Hold Purple Top PT (10.8-13.0) SEC INR (0.9-1.1) Sodium (135-145) mmol/L Potassium (3.3-5.1) mmol/L Chloride (96-108) mmol/L Carbon Dioxide (22-29) mmol/L Anion Gap (12-20) BUN (9-16) mg/dL Creatinine (0.5-1.4) mg/dL Estim Creat Clear Calc Estimated GFR POC Glucose (60-115) mg/dL Random Glucose (60-115) mg/dL Calcium (8.4-10.2) mg/dL Magnesium (1.6-2.6) mg/dL Total Bilirubin (0.0-1.0) mg/dL AST (5-37) U/L ALT (0-40) U/L Alkaline Phosphatase (39-117) U/L B-Natriuretic Peptide 222 H (<100) pg/mL Total Protein (6.5-8.0) g/dL Albumin (3.5-5.0) g/dL Lipase (8-78) U/L Urine Color YELLOW Urine Appearance CLEAR Urine pH 5.5 (5.0-8.0) Ur Specific [place] <= 1.005 (1.005-1.025) Urine Protein 1+ H (NEG-TRACE) MG/DL Urine Glucose (UA) 250 H (NEG) MG/DL Urine Ketones NEG (NEG) MG/DL Urine Blood 1+ H (NEG) Urine Nitrite NEG (NEG) Ur Leukocyte Esterase NEG (NEG) Urine RBC 0-2 (0) /HPF Urine WBC 0 (0-4) /HPF Ur Squamous Epith Cells NONE /LPF Urine Bacteria TRACE /LPF Urine Opiates Screen Not Detected (Not Detect) Ur Barbiturates Screen POSITIVE H (Not Detect) Ur Phencyclidine Scrn Not Detected (Not Detect) Ur Amphetamines Screen Not Detected (Not Detect) U Benzodiazepines Scrn Not Detected (Not Detect) Urine Cocaine Screen Not Detected (Not Detect) U Marijuana (THC) Screen Not Detected (Not Detect) Ethyl Alcohol mg/dL Imaging Data Chest x-ray: Attestation: I personally reviewed and interpreted this imaging study as follows: Radiologist's impression: FINDINGS: Lungs well-expanded. Chronic appearing coarsened reticular markings are seen with central vascular prominence, peribronchial cuffing, and mild indistinctness to the vessels suggesting mild pulmonary edema. No significant effusion or pneumothorax. Cardiac silhouette is prominent but unchanged. XR/XR chest 2V IMPRESSION: Mild central vascular prominence and increased interstitial markings. Mild interstitial edema cannot be excluded. There is more focal airspace disease the right base possibly due to right basilar consolidation/atelectasis which has progressed from the prior study ECG Data Attestation: I personally reviewed and interpreted this ECG as follows: ECG interpretation date: 09/03/20 ECG interpretation time: 19:25 Interpretation: Atrial fibrillation with a ventricular rate of 97 no acute ischemic changes are noted and similar compared to prior EKG on 08/31/2020. Critical Care Time Critical Care Time Critical Care Time: Yes Total Critical Care Time: 60 Attestation: I personally attest to this time spent taking care of the patient Discharge Plan Discharge Clinical Impression: Alcoholic intoxication Patient Disposition: Home, Self-Care Instructions: Alcohol Intoxication (ED), Alcohol Dependence (ED) Prescriptions: No Action tamsulosin 0.4 mg Capsule 0.4 mg PO DAILY RF: 0 fluoxetine 20 mg Capsule 20 mg PO DAILY RF: 0 trazodone 50 mg tablet 1 tab PO BEDTIME RF: 0 gabapentin 400 mg capsule 1 cap PO TID RF: 0 metformin 1,000 mg tablet 1 tab PO BID RF: 0 Lantus Solostar U-100 Insulin 100 unit/mL (3 mL) insulin pen 6 unit subcut QAM RF: 0 ammonium lactate 12 % cream 1 appl topical BID RF: 0 apixaban 5 mg Tablet 5 mg PO BID RF: 0 multivitamin [One Daily Multivitamin] Tablet 1 tab PO DAILY RF: 0 furosemide 40 mg tablet 40 mg PO BID RF: 0 atorvastatin 40 mg tablet 40 mg PO BEDTIME RF: 0 aspirin 81 mg tablet,delayed release (DR/EC) 81 mg PO DAILY RF: 0 spironolactone 25 mg tablet 25 mg PO DAILY RF: 0 metoprolol tartrate 50 mg Tablet 50 mg PO BID 30 Days Qty: 60 RF: 0 omeprazole 20 mg Capsule,Delayed Release(Dr/Ec) 20 mg PO DAILY@0630 30 Days Qty: 30 RF: 0 folic acid 1 mg Tablet 1 mg PO DAILY 30 Days Qty: 30 RF: 0 thiamine mononitrate (vit B1) 100 mg Tablet 100 mg PO DAILY 30 Days Qty: 30 RF: 0 Referrals: Physician,Unknown [Primary Care Provider] - 2 days (Your PCP) Print Language: Barbadian
--- NOTE | 2020-09-03 19:08 | ECG_ITS ---
Test Reason : ETOH Blood Pressure : / mmHG Vent. Rate : 097 BPM Atrial Rate : 105 BPM P-R Int : 000 ms QRS Dur : 092 ms QT Int : 400 ms P-R-T Axes : 000 -82 142 degrees QTc Int : 509 ms Atrial fibrillation Left axis deviation Inferior infarct (cited on or before 02-JUL-2016) Anterior infarct (cited on or before 02-JUL-2016) Prolonged QT Abnormal ECG When compared with ECG of 31-AUG-2020 21:47, No significant changes seen Referred By: Julienne Crain Electronically Signed By:David Ernandez
[2020-09-03 19:40] LABS: B Type Natriuretic Peptide 222 pg/mL (<100)
[2020-09-03 20:05] VITALS: BP 136/77; PULSE 118; RESP 22; TEMP 36.4; O2SAT 97
[2020-09-03] MEDS: Magnesium Oxide 400 MG TABLET 800 MG PO (20:07)
--- NOTE | 2020-09-03 20:42 | PC.NURSE ---
pt ready for discharge, care team working on a LYFT. pt had a sandwich and water.
== END 2020-09-03 21:29 | disposition home or self-care (01) ==
PROVIDERS: Physician Assistant Medical; Emergency Provider Internal Medicine
DX: F10.229 Alcohol dependence with intoxication, unspecified (principal); Y90.6 Blood alcohol level of 120-199 mg/100 ml; I48.91 Unspecified atrial fibrillation; I25.10 Atherosclerotic heart disease of native coronary artery without angina pectoris; I10 Essential (primary) hypertension; E11.9 Type 2 diabetes mellitus without complications; Z86.16 Personal history of COVID-19; Z20.822 Contact with and (suspected) exposure to COVID-19; Z79.01 Long term (current) use of anticoagulants; Z79.899 Other long term (current) drug therapy; Z79.82 Long term (current) use of aspirin
CPT/HCPCS: 36415; 71046; 80053; 80307; 80320; 81001; 82947; 83690; 83735; 83880; 85025; 85610; 93005; 99284; 99285

== ENCOUNTER 2020-09-04 17:25 | Emergency (ER) | payer MEDICARE, MEDICAID, SELFPAY ==
[2020-09-04 17:50] VITALS: BP 121/74; PULSE 114; RESP 16; TEMP 37.5; O2SAT 95; BMI 36.6
--- NOTE | 2020-09-04 19:22 | ED_ITS ---
HPI - General Adult General Chief complaint: ETOH/Substance Use Stated complaint: ETOH COVID + Time Seen by Provider: 09/04/20 18:58 Source: patient History of Present Illness HPI narrative: 59-year-old male with a past medical history of atrial fibrillation, coronary artery disease, cardiomyopathy, CHF, hypertension, diabetes, alcoholic liver cirrhosis, alcohol dependent, varicose veins of lower extremity with inflammation, recent diagnosis with COVID-19 on 08/18/2020 with recent admission on 08/27/2020 for elevated troponin felt to be secondary to COVID cardiomyopathy versus alcoholic cardiomyopathy presenting to the ED via EMS reporting that he was just diagnosed with COVID 3 days ago and that he needs to come to the hospital for this. He denies any other symptoms at this time. No signs of trauma noted. Has his own apartment. Not interested in detox. Denies any SI/HI/auditory visual hallucinations or thoughts of self injury. Related Data Home Medications Medication Instructions Recorded Confirmed aspirin 81 mg PO DAILY 01/22/20 08/28/20 atorvastatin 40 mg PO BEDTIME 01/22/20 08/28/20 furosemide 40 mg PO BID 01/22/20 08/28/20 multivitamin [One Daily 1 tab PO DAILY 01/22/20 08/28/20 Multivitamin] spironolactone 25 mg PO DAILY 01/22/20 08/28/20 fluoxetine 20 mg PO DAILY 05/02/20 08/28/20 tamsulosin 0.4 mg PO DAILY 05/02/20 08/28/20 Lantus Solostar U-100 Insulin 6 unit SUBCUT QAM 08/18/20 08/28/20 ammonium lactate 1 appl TOPICAL BID 08/18/20 08/28/20 apixaban 5 mg PO BID 08/18/20 08/28/20 gabapentin 1 cap PO TID 08/18/20 08/28/20 metformin 1 tab PO BID 08/18/20 08/28/20 trazodone 1 tab PO BEDTIME 08/18/20 08/28/20 Previous Rx's Medication Instructions Recorded folic acid 1 mg PO DAILY 30 Days #30 tab 08/30/20 metoprolol tartrate 50 mg PO BID 30 Days #60 tab 08/30/20 omeprazole 20 mg PO DAILY@0630 30 Days #30 cap 08/30/20 thiamine mononitrate (vit B1) 100 mg PO DAILY 30 Days #30 tab 08/30/20 Allergies Allergy/AdvReac Type Severity Reaction Status Date / Time Penicillins [PCN] Allergy Unknown UNKNOWN Verified 09/03/20 16:05 Review of Systems Review of Systems: Constitutional : No Fever, No Chills ENT/Mouth : No Ear Pain, No Nasal Congestion, No sore throat Eyes: No Eye Pain, No Swelling, No Redness Cardiovascular : No Chest Pain, No SOB Respiratory : No Cough, No Sputum, No Dyspnea Gastrointestinal : No ingestions, No Nausea, No Vomiting, No Diarrhea, No Hematochezia, No Melena Genitourinary : No Dysuria, No Urinary Frequency, No Hematuria Musculoskeletal : No Myalgias Skin : No Skin Lesions, No rash Neuro : No Weakness, No Numbness, No Paresthesias, No Dizziness, No Headache Psych : No Anxiety, No Depression, No SI/HI, No AVH, No thoughts of self injury Heme/Lymph: No Lymphadenopathy Endocrine : No Polyuria, No Polydipsia Yes all other systems are reviewed and are negative [facility] Past Medical History Attestation statement: The following information was validated with the patient. Medical History A-fib CAD (coronary artery disease) Cardiomyopathy CHF (congestive heart failure) Cirrhosis Depression Diabetes ETOH abuse HTN (hypertension) Social History Social History Household Members: None Housing: Other Housing Other:: Room above bar Do you presently have visiting nurse or other home services: No Alcohol intake: current Alcohol intake frequency: 3 or more drinks per day Alcohol type: hard liquor Smoking Status: Never smoker Advance Directives: No Advance Directives Information Provided: Yes service: No Current occupational status: unemployed Physical Exam Vital Signs: Vital Signs: Last Vital Signs Temp 99.5 F 09/04/20 17:50 Pulse 114 H 09/04/20 17:50 Resp 16 09/04/20 17:50 BP 121/74 09/04/20 17:50 Pulse Ox 95 09/04/20 17:50 Body Mass Index 36.6 vital signs have been reviewed as normal and appeared to be correct. Blood pressure normal. Heart rate normal. Respiration rate normal. Temperature normal. Oxygen saturation normal. Appearance: Alert. Oriented X3. No acute distress. Head: Normal external exam. Normocephalic. Eyes: PERRLA. EOMI. Conjunctiva and sclera normal. Eyelids normal. ENT: Pharynx normal. Uvula midline. Moist mucous membranes. No trismus noted. No drooling noted. No muffled voice noted. Neck: Normal inspection. Neck supple. FROM. No adenopathy. No meningeal signs. CVS: Normal heart rate and rhythm. Heart sound normal. No murmurs noted. Pulses normal throughout. Respiratory: No respiratory distress. Painless inspiration. Breath sounds normal. No wheezes/rales/rhonchi noted. Chest nontender. No accessory muscle usage noted or decreased air movement noted. Abdomen: Soft and nontender. Nondistended. No guarding. No rigidity. Bowel sounds normal in all 4 quadrants. No distention noted. No organomegaly noted. No visible injury noted. No rebound tenderness. Negative Rovsing sign. Ne gative obturator's sign. Negative psoas sign. Negative Calix sign. Back: No CVA tenderness. Full range of motion noted. Skin: Skin warm and dry. Normal skin color. Normal skin turgor. No rashe s/lesions/lacerations noted. Extremities: Extremities exhibit normal range of motion. Extremities nontender. Neuro: Oriented X 3. No motor deficit. No sensory deficit. Reflexes normal. Normal steady gait. Course Course Course Narrative: 59-year-old male who is here almost daily presenting to the ED via EMS reporting to EMS that he was diagnosed with COVID 3 days ago and wants to be worked up again for COVID. I explained to him that he was positive for COVID on 08/18/2020 and that he is no longer positive for COVID. He denies any chest pain or shortness of breath or any other symptoms at this time. POC level less than 200. Will DC home with instructions to return if any new or worse gio symptoms as patient had a full workup yesterday. Everything was negative. Not interested in detox therefore instructed patient to return if any new or worsening symptoms to follow up with primary care provider. He understands agrees the plan. Medical Decision Making Medical Records Medical records reviewed: Yes I reviewed the patient's medical records. Discharge Plan Discharge Clinical Impression: Alcohol dependence Patient Disposition: Home, Self-Care Instructions: Alcohol Dependence (ED) Prescriptions: No Action tamsulosin 0.4 mg Capsule 0.4 mg PO DAILY RF: 0 fluoxetine 20 mg Capsule 20 mg PO DAILY RF: 0 trazodone 50 mg tablet 1 tab PO BEDTIME RF: 0 gabapentin 400 mg capsule 1 cap PO TID RF: 0 metformin 1,000 mg tablet 1 tab PO BID RF: 0 Lantus Solostar U-100 Insulin 100 unit/mL (3 mL) insulin pen 6 unit subcut QAM RF: 0 ammonium lactate 12 % cream 1 appl topical BID RF: 0 apixaban 5 mg Tablet 5 mg PO BID RF: 0 multivitamin [One Daily Multivitamin] Tablet 1 tab PO DAILY RF: 0 furosemide 40 mg tablet 40 mg PO BID RF: 0 atorvastatin 40 mg tablet 40 mg PO BEDTIME RF: 0 aspirin 81 mg tablet,delayed release (DR/EC) 81 mg PO DAILY RF: 0 spironolactone 25 mg tablet 25 mg PO DAILY RF: 0 metoprolol tartrate 50 mg Tablet 50 mg PO BID 30 Days Qty: 60 RF: 0 omeprazole 20 mg Capsule,Delayed Release(Dr/Ec) 20 mg PO DAILY@0630 30 Days Qty: 30 RF: 0 folic acid 1 mg Tablet 1 mg PO DAILY 30 Days Qty: 30 RF: 0 thiamine mononitrate (vit B1) 100 mg Tablet 100 mg PO DAILY 30 Days Qty: 30 RF: 0 Referrals: Physician,Unknown [Primary Care Provider] - 2 days (Your PCP) Print Language: Swedish
[2020-09-04 19:27] VITALS: BP 135/82; PULSE 101; RESP 18; TEMP 36.7; O2SAT 98
[2020-09-04 19:28] LABS: Glucose, Whole Blood 186 mg/dL (60-115)
== END 2020-09-04 20:15 | disposition home or self-care (01) ==
PROVIDERS: Emergency Provider Emergency Medicine Emergency Medical Services
DX: F10.20 Alcohol dependence, uncomplicated (principal); Y90.9 Presence of alcohol in blood, level not specified; I11.0 Hypertensive heart disease with heart failure; I50.9 Heart failure, unspecified; I48.91 Unspecified atrial fibrillation; E11.9 Type 2 diabetes mellitus without complications; Z86.16 Personal history of COVID-19; Z79.4 Long term (current) use of insulin; Z79.899 Other long term (current) drug therapy
CPT/HCPCS: 82947; 99282; 99283

== ENCOUNTER 2020-09-06 00:12 | Emergency (ER) | payer MEDICARE, MEDICAID, SELFPAY ==
--- NOTE | 2020-09-06 00:06 | ED_ITS ---
HPI - Alcohol General Chief Complaint: ETOH/Substance Use Stated Complaint: etoh Time Seen by Provider: 09/06/20 00:23 Source: patient, EMS and old records reviewed Mode of arrival: EMS Limitations: other (ETOH) History of Present Illness HPI narrative: found [place] outside [place] the park complaint: alcohol intoxication Last drink: Just prior to admission Chronic alcohol use: Yes Previous visits for alcohol intoxication: Yes Recent trauma: No Associated symptoms: denies other symptoms Treatments prior to arrival: none Related Data Home Medications Medication Instructions Recorded Confirmed aspirin 81 mg PO DAILY 01/22/20 08/28/20 atorvastatin 40 mg PO BEDTIME 01/22/20 08/28/20 furosemide 40 mg PO BID 01/22/20 08/28/20 multivitamin [One Daily 1 tab PO DAILY 01/22/20 08/28/20 Multivitamin] spironolactone 25 mg PO DAILY 01/22/20 08/28/20 fluoxetine 20 mg PO DAILY 05/02/20 08/28/20 tamsulosin 0.4 mg PO DAILY 05/02/20 08/28/20 Lantus Solostar U-100 Insulin 6 unit SUBCUT QAM 08/18/20 08/28/20 ammonium lactate 1 appl TOPICAL BID 08/18/20 08/28/20 apixaban 5 mg PO BID 08/18/20 08/28/20 gabapentin 1 cap PO TID 08/18/20 08/28/20 metformin 1 tab PO BID 08/18/20 08/28/20 trazodone 1 tab PO BEDTIME 08/18/20 08/28/20 Previous Rx's Medication Instructions Recorded folic acid 1 mg PO DAILY 30 Days #30 tab 08/30/20 metoprolol tartrate 50 mg PO BID 30 Days #60 tab 08/30/20 omeprazole 20 mg PO DAILY@0630 30 Days #30 cap 08/30/20 thiamine mononitrate (vit B1) 100 mg PO DAILY 30 Days #30 tab 08/30/20 Allergies Allergy/AdvReac Type Severity Reaction Status Date / Time Penicillins [PCN] Allergy Unknown UNKNOWN Verified 09/03/20 16:05 Review of Systems Review of Systems: ROS unable to be obtained due to altered mental status [facility] Past Medical History Attestation statement: The following information was validated with the patient. Medical History A-fib CAD (coronary artery disease) Cardiomyopathy CHF (congestive heart failure) Cirrhosis Depression Diabetes ETOH abuse HTN (hypertension) Social History Social History Household Members: None Housing: Other Housing Other:: Room above bar Do you presently have visiting nurse or other home services: No Alcohol intake: current Alcohol intake frequency: 3 or more drinks per day Alcohol type: hard liquor Smoking Status: Never smoker Advance Directives: No Advance Directives Information Provided: No service: No Current occupational status: unemployed Physical Exam Vital Signs: Vital Signs: Last Vital Signs Temp 98 F 09/06/20 00:43 Pulse 80 09/06/20 02:00 Resp 16 09/06/20 02:00 Pulse Ox 96 09/06/20 00:43 Body Mass Index 30.2 Appearance: Sonolent, disheveled poor hygiene soiled with feces Oriented X2. No acute distress. Eyes: Pupils equal, round and reactive to light. ENT: Pharynx normal. Neck: Normal inspection. Neck supple. CVS: tachycardic heart rate and rhythm. Pulses normal. Respiratory: No respiratory distress. Breath sounds normal. Abdomen: Soft and nontender. Skin: Skin warm and dry. Normal skin color. Normal skin turgor. Extremities: No lower extremity edema. No calf ttp Neuro: Oriented X 2 No motor deficit. No sensory deficit. Course Course Course Narrative: patient easily woken , steady gait, plan to DC home after breakfast, washing his clothes for him MDM - Alcohol MDM Narrative Medical decision making narrative: 59 yo male with ETOH abuse, no signs of trauma, CHF, CAD has no complaints did defecate on himself, found sleeping in a park - will obtain POC and observe until clinically sober Lab Data Labs: Lab Results 09/06/20 Range/Units 00:51 POC Glucose 188 H (60-115) mg/dL Discharge Plan Discharge Clinical Impression: Alcoholic intoxication Patient Disposition: Home, Self-Care Instructions: Alcohol Intoxication (ED) Additional Instructions: return to ED for any worsening symptoms or concerns Prescriptions: No Action tamsulosin 0.4 mg Capsule 0.4 mg PO DAILY RF: 0 fluoxetine 20 mg Capsule 20 mg PO DAILY RF: 0 trazodone 50 mg tablet 1 tab PO BEDTIME RF: 0 gabapentin 400 mg capsule 1 cap PO TID RF: 0 metformin 1,000 mg tablet 1 tab PO BID RF: 0 Lantus Solostar U-100 Insulin 100 unit/mL (3 mL) insulin pen 6 unit subcut QAM RF: 0 ammonium lactate 12 % cream 1 appl topical BID RF: 0 apixaban 5 mg Tablet 5 mg PO BID RF: 0 multivitamin [One Daily Multivitamin] Tablet 1 tab PO DAILY RF: 0 furosemide 40 mg tablet 40 mg PO BID RF: 0 atorvastatin 40 mg tablet 40 mg PO BEDTIME RF: 0 aspirin 81 mg tablet,delayed release (DR/EC) 81 mg PO DAILY RF: 0 spironolactone 25 mg tablet 25 mg PO DAILY RF: 0 metoprolol tartrate 50 mg Tablet 50 mg PO BID 30 Days Qty: 60 RF: 0 omeprazole 20 mg Capsule,Delayed Release(Dr/Ec) 20 mg PO DAILY@0630 30 Days Qty: 30 RF: 0 folic acid 1 mg Tablet 1 mg PO DAILY 30 Days Qty: 30 RF: 0 thiamine mononitrate (vit B1) 100 mg Tablet 100 mg PO DAILY 30 Days Qty: 30 RF: 0 Print Language: Scottish
[2020-09-06 00:43] VITALS: PULSE 80; RESP 16; TEMP 36.6; O2SAT 96; BMI 30.2
--- NOTE | 2020-09-06 00:54 | PC.NURSE ---
POC 188 AWARE.
--- NOTE | 2020-09-06 00:54 | PC.NURSE ---
PT SLEEPING AND COVERED IN FECES. PT WAKES TO VOICE. PT IN NAD. MD AT BEDSIDE WITH PT. RESPIRATIONS EASY, N/L. SKIN W/D.
[2020-09-06 00:55] LABS: Glucose, Whole Blood 188 mg/dL (60-115)
[2020-09-06 02:00] VITALS: PULSE 80; RESP 16
--- NOTE | 2020-09-06 02:37 | PC.NURSE ---
PT SLEEPING WAKES TO VOICE. RESPIRATIONS EASY, N/L. SKIN W/D. WILL CONTINUE TO MONITOR PT.
--- NOTE | 2020-09-06 02:39 | PC.NURSE ---
PT REFUSING VITAL SIGNS.
[2020-09-06 06:08] VITALS: BP 128/92; PULSE 94; RESP 17; O2SAT 98
[2020-09-06 07:54] VITALS: BP 118/95; PULSE 101; RESP 15; TEMP 36.6; O2SAT 96
== END 2020-09-06 09:15 | disposition home or self-care (01) ==
PROVIDERS: Emergency Provider Emergency Medicine
DX: F10.129 Alcohol abuse with intoxication, unspecified (principal); Y90.8 Blood alcohol level of 240 mg/100 ml or more; I25.10 Atherosclerotic heart disease of native coronary artery without angina pectoris; I10 Essential (primary) hypertension; Z79.899 Other long term (current) drug therapy; Z71.41 Alcohol abuse counseling and surveillance of alcoholic
CPT/HCPCS: 82947; 99283

== ENCOUNTER 2020-09-07 18:17 | Emergency (ER) | payer MEDICARE, MEDICAID, SELFPAY ==
[2020-09-07 18:33] VITALS: BP 131/97; BP 149/89; PULSE 117; PULSE 121; RESP 20; TEMP 37.1; O2SAT 94; BMI 34.9
--- NOTE | 2020-09-07 19:23 | ED_ITS ---
HPI - Alcohol General Chief Complaint: ETOH/Substance Use Stated Complaint: ETOH Time Seen by Provider: 09/07/20 19:23 Source: patient and EMS Mode of arrival: EMS Limitations: no limitations History of Present Illness HPI narrative: 59-year-old male well known to us with a past medical history of alcohol abuse here after being found by a bystander sleeping outside on the ground. Admits to drinking alcohol unknown amount. No physical complaints. Related Data Home Medications Medication Instructions Recorded Confirmed aspirin 81 mg PO DAILY 01/22/20 08/28/20 atorvastatin 40 mg PO BEDTIME 01/22/20 08/28/20 furosemide 40 mg PO BID 01/22/20 08/28/20 multivitamin [One Daily 1 tab PO DAILY 01/22/20 08/28/20 Multivitamin] spironolactone 25 mg PO DAILY 01/22/20 08/28/20 fluoxetine 20 mg PO DAILY 05/02/20 08/28/20 tamsulosin 0.4 mg PO DAILY 05/02/20 08/28/20 Lantus Solostar U-100 Insulin 6 unit SUBCUT QAM 08/18/20 08/28/20 ammonium lactate 1 appl TOPICAL BID 08/18/20 08/28/20 apixaban 5 mg PO BID 08/18/20 08/28/20 gabapentin 1 cap PO TID 08/18/20 08/28/20 metformin 1 tab PO BID 08/18/20 08/28/20 trazodone 1 tab PO BEDTIME 08/18/20 08/28/20 Previous Rx's Medication Instructions Recorded folic acid 1 mg PO DAILY 30 Days #30 tab 08/30/20 metoprolol tartrate 50 mg PO BID 30 Days #60 tab 08/30/20 omeprazole 20 mg PO DAILY@0630 30 Days #30 cap 08/30/20 thiamine mononitrate (vit B1) 100 mg PO DAILY 30 Days #30 tab 08/30/20 Allergies Allergy/AdvReac Type Severity Reaction Status Date / Time Penicillins [PCN] Allergy Unknown UNKNOWN Verified 09/03/20 16:05 Review of Systems Review of Systems: Yes Unobtainable due to mental status Neurologic: Denies Abnormal speech present PMFSH Past Medical History Attestation statement: The following information was validated with the patient. Source: old records reviewed and nursing notes reviewed Medical History A-fib CAD (coronary artery disease) Cardiomyopathy CHF (congestive heart failure) Cirrhosis Depression Diabetes ETOH abuse HTN (hypertension) Social History Social History Household Members: None Housing: Other Housing Other:: Room above bar Do you presently have visiting nurse or other home services: No Alcohol intake: current Alcohol intake frequency: 3 or more drinks per day Alcohol type: hard liquor Smoking Status: Never smoker Use of substances other than those prescribed or required for medical reasons: No Advance Directives: No Advance Directives Information Provided: Yes service: No Current occupational status: unemployed Physical Exam Vital Signs: Vital Signs: Last Vital Signs Temp 98.8 F 09/07/20 18:33 Pulse 117 H 09/07/20 18:33 Resp 20 09/07/20 18:33 BP 131/97 H 09/07/20 18:33 Pulse Ox 94 09/07/20 18:33 Body Mass Index 34.9 Const: Other: Somnolent, disheveled poor hygiene soiled with feces Oriented X2. No acute distress. General: cooperative HENMT: Head: Yes normal to inspection Ears: hearing grossly normal bilaterally General nose exam: Normal external nose present Face and sinus: Yes normal facial exam Mouth: Normal oral and palatal mucosa present Throat: Yes posterior oropharynx normal Eyes: General: appearance normal, both eyes and all related structures Pupils: Equal, round and reactive pupils present Neck: Neck: Yes normal visual inspection Chest: Chest palpation & inspection: normal inspection of the chest Resp: Effort & Inspection: normal respiratory effort Auscultation: clear to auscultation bilaterally Cardio: Rate: regular rate Rhythm: regular rhythm Peripheral pulses: Peripheral pulses 2+ throughout GI: Inspection: Yes normal to inspection Palpation (GI): Soft to palpation and nontender Auscultation: normal bowel sounds Back/Spine/Pelvis: Thoracic/Lumbar Spine: thoracic and lumbar spine normal to inspection Skin: General skin exam: no rashes or lesions noted Neuro: General: no focal motor deficits and normal sensation to monofilament Cranial nerves: Yes Equal, round and reactive pupils present Cognition (Neuro): normal cognition Speech: No Abnormal speech present Gait exam (Neuro): Normal gait present Motor exam (neuro): 5/5 motor strength present throughout Extrem: General: Yes normal to inspection Course Course Course Narrative: 2100-Patient placed in physician observation pending sober re- evaluation. MDM - Alcohol MDM Narrative Medical decision making narrative: 59 yo male with ETOH abuse, no signs of trauma, CHF, CAD has no complaints did defecate on himself, found sleeping in a park - will obtain POC and observe until clinically sober Lab Data Medical Records Attestation: I reviewed the patient's medical records. Lab Data Attestation: I reviewed the patient's lab results. Discharge Plan Discharge Prescriptions: No Action tamsulosin 0.4 mg Capsule 0.4 mg PO DAILY RF: 0 fluoxetine 20 mg Capsule 20 mg PO DAILY RF: 0 trazodone 50 mg tablet 1 tab PO BEDTIME RF: 0 gabapentin 400 mg capsule 1 cap PO TID RF: 0 metformin 1,000 mg tablet 1 tab PO BID RF: 0 Lantus Solostar U-100 Insulin 100 unit/mL (3 mL) insulin pen 6 unit subcut QAM RF: 0 ammonium lactate 12 % cream 1 appl topical BID RF: 0 apixaban 5 mg Tablet 5 mg PO BID RF: 0 multivitamin [One Daily Multivitamin] Tablet 1 tab PO DAILY RF: 0 furosemide 40 mg tablet 40 mg PO BID RF: 0 atorvastatin 40 mg tablet 40 mg PO BEDTIME RF: 0 aspirin 81 mg tablet,delayed release (DR/EC) 81 mg PO DAILY RF: 0 spironolactone 25 mg tablet 25 mg PO DAILY RF: 0 metoprolol tartrate 50 mg Tablet 50 mg PO BID 30 Days Qty: 60 RF: 0 omeprazole 20 mg Capsule,Delayed Release(Dr/Ec) 20 mg PO DAILY@0630 30 Days Qty: 30 RF: 0 folic acid 1 mg Tablet 1 mg PO DAILY 30 Days Qty: 30 RF: 0 thiamine mononitrate (vit B1) 100 mg Tablet 100 mg PO DAILY 30 Days Qty: 30 RF: 0
[2020-09-07 20:00] VITALS: BP 154/84; PULSE 84; RESP 16; O2SAT 94
[2020-09-07 22:00] VITALS: RESP 16
[2020-09-08] VITALS: RESP 16
[2020-09-08 02:00] VITALS: PULSE 74; RESP 16; O2SAT 94
[2020-09-08 02:37] VITALS: PULSE 74
== END 2020-09-08 03:14 | disposition home or self-care (01) ==
PROVIDERS: Emergency Provider Emergency Medicine Emergency Medical Services
DX: F10.10 Alcohol abuse, uncomplicated (principal); Y90.9 Presence of alcohol in blood, level not specified; I48.91 Unspecified atrial fibrillation; E11.9 Type 2 diabetes mellitus without complications; I11.0 Hypertensive heart disease with heart failure; I50.9 Heart failure, unspecified
CPT/HCPCS: 99285

== ENCOUNTER 2020-09-10 20:46 | Inpatient (IN) | payer MEDICARE, MEDICAID, SELFPAY ==
--- NOTE | ~2020-09-10 | XR_ITS ---
EXAMINATION: XR CHEST CLINICAL INFORMATION: Repeat comparison COMPARISON: 09/10/2020 TECHNIQUE: Frontal view of the chest was obtained. FINDINGS: Lung volumes are symmetric. Central vasculature remains prominent. There is suggestion of patchy opacity at the right base. No pneumothorax is seen. No significant pleural effusions. Cardiac silhouette remains enlarged. Calcification is present at the aortic arch. No acute osseous findings are seen. XR/XR chest 1V IMPRESSION: Persistent central vascular prominence and suggestion of mild right patchy basilar opacity. Appearance is similar to 09/10/2020.
--- NOTE | ~2020-09-10 | XR_ITS ---
EXAMINATION: XR CHEST CLINICAL INFORMATION: Shortness of breath COMPARISON: Previous chest x-ray most recent 09/03/2020 TECHNIQUE: Frontal view of the chest was obtained. FINDINGS: The cardiac silhouette is enlarged but stable. The lung volumes are low. There is bilateral perihilar airspace disease. Appearance again favors pulmonary edema over pneumonia. There is no pleural effusion or pneumothorax. There are degenerative changes of the spine. XR/XR chest 1V IMPRESSION: Stable enlargement of the cardiac silhouette. Low lung volumes. Bilateral perihilar airspace disease. Differential would include pulmonary edema and pneumonia.
[2020-09-10 21:05] VITALS: BP 134/74; BP 145/98; PULSE 124; PULSE 74; RESP 20; TEMP 36.6; O2SAT 95; O2SAT 97; BMI 36.0
--- NOTE | 2020-09-10 21:16 | ED.ALCOHOL ---
HPI - Alcohol General Chief Complaint: ETOH/Substance Use <Ila Soto NP - Last Filed: 09/11/20 02:20> Stated Complaint: ETOH <Ila Soto NP - Last Filed: 09/11/20 02:20> Time Seen by Provider: 09/10/20 22:51 <Ila Soto NP - Last Filed: 09/11/20 02:20> Source: patient and EMS <Ila Soto NP - Last Filed: 09/11/20 02:20> Mode of arrival: EMS <Ila Soto NP - Last Filed: 09/11/20 02:20> Limitations: altered mental status (Acute alcohol intoxication) <NAZIA Funk Last Filed: 09/11/20 02:20> History of Present Illness HPI narrative: 59-year-old male presents via EMS for acute alcohol intoxication. Patient is inebriated, slurring his words and falls asleep almost immediately after response. Patient has a known history of cardiomyopathy, AFib, cirrhosis, coronary artery disease, CHF, hypertension, longstanding ETOH abuse, diabetes, and has a history of alcohol withdrawal syndrome. Patient is unable to answer questions at this time. <Ila Soto NP - Last Filed: 09/11/20 02:20> MD complaint: alcohol intoxication and alcohol dependence <Ila Soto NP - Last Filed: 09/11/20 02:20> Last drink: Hours (ago) (Within the hour of arrival) <NAZIA Funk Last Filed: 09/11/20 02:20> Chronic alcohol use: Yes <NAZIA Funk Last Filed: 09/11/20 02:20> Previous visits for alcohol intoxication: Yes <NAZIA Funk Last Filed: 09/11/20 02:20> Related Data Home Medications: Home Medications Medication Instructions Recorded Confirmed ammonium lactate 1 appl TOPICAL BID 09/11/20 09/11/20 aspirin 1 tab PO DAILY 09/11/20 09/11/20 atorvastatin 1 tab PO BEDTIME 09/11/20 09/11/20 gabapentin 1 cap PO TID 09/11/20 09/11/20 insulin glargine [Lantus Solostar 6 unit SUBCUT QAM 09/11/20 09/11/20 U-100 Insulin] metformin 1 tab PO BID 09/11/20 09/11/20 metoprolol tartrate 1 tab PO BID 09/11/20 09/11/20 multivitamin 1 tab PO DAILY 09/11/20 09/11/20 omeprazole 1 cap PO DAILY 09/11/20 09/11/20 trazodone 1 tab PO BEDTIME 09/11/20 09/11/20 <Ila Soto NP - Last Filed: 09/11/20 02:20> Allergies/Adverse Reactions: Allergies Allergy/AdvReac Type Severity Reaction Status Date / Time Penicillins [PCN] Allergy Unknown UNKNOWN Verified 09/03/20 16:05 <Ila Soto NP - Last Filed: 09/11/20 02:20> Review of Systems Review of Systems: Yes Unobtainable due to mental status <Ila Soto NP - Last Filed: 09/11/20 02:20> [facility] Past Medical History Attestation statement: The following information was validated with the patient. <Ila Soto NP - Last Filed: 09/11/20 02:20> Source: old records reviewed <Ila Soto NP - Last Filed: 09/11/20 02:20> Medical History: Medical History A-fib CAD (coronary artery disease) Cardiomyopathy CHF (congestive heart failure) Cirrhosis Depression Diabetes ETOH abuse HTN (hypertension) <Ila Soto NP - Last Filed: 09/11/20 02:20> Social History Social History: Social History Household Members: None Housing: Other Housing Other:: Room above bar Do you presently have visiting nurse or other home services: No Alcohol intake: current Alcohol intake frequency: 3 or more drinks per day Alcohol type: hard liquor Smoking Status: Never smoker Advance Directives: No Advance Directives Information Provided: Yes service: No Current occupational status: unemployed <Ila Soto NP - Last Filed: 09/11/20 02:20> Physical Exam Vital Signs: Vital Signs: Last Vital Signs Temp 97.9 F 09/11/20 07:16 Pulse 108 H 09/11/20 07:48 Resp 16 09/11/20 07:47 BP 148/85 H 09/11/20 07:47 Pulse Ox 98 09/11/20 07:48 Oxygen Flow Rate 2 09/10/20 21:05 Body Mass Index 36.0 <Ila Soto NP - Last Filed: 09/11/20 02:20> Vital Signs: Last Vital Signs Temp 97.9 F 09/11/20 07:16 Pulse 108 H 09/11/20 07:48 Resp 16 09/11/20 07:47 BP 148/85 H 09/11/20 07:47 Pulse Ox 98 09/11/20 07:48 Oxygen Flow Rate 2 09/10/20 21:05 Body Mass Index 36.0 <Kayla Su MD - Last Filed: 09/11/20 07:56> Appearance: Intoxicated, disheveled Eyes: Pupils equal, round and reactive to light. ENT: Pharynx normal. Neck: Normal inspection. Neck supple. CVS: Tachycardic heart rate and rhythm. Pulses normal. Respiratory: No respiratory distress. Breath sounds normal. Abdomen: Soft and nontender. Skin: Sunburn noted to forearms and lower legs,Normal skin turgor. Extremities: Bilateral lower extremity edema Neuro: Unable to assess secondary to patient's inability to follow commands, which is patient's normal presentation to the emergency department <Ila Soto NP - Last Filed: 09/11/20 02:20> Course Course Course Narrative: 59-year-old male presents via EMS for acute alcohol intoxication. Patient is unable to answer any questions at the time of my assessment. Arouse by sternal rub, patient was moved from the hallway to room 22 and placed on cardiac monitors. 10:49 p.m. EKG completed, patient is in AFib with RVR heart rate is 115. Order for Cardizem 10 mg IV push. RN updated. Lactic acid is elevated at 2.3, highly suspected to be from EtOH, ethanol level 355. Troponin is elevated at 37.9 however this is a much improved value from 08/27 which was 95.9 and repeat 255.5. H&H 12.0/37.4 which is an improvement from his last 6 values and similar to the values in July of 2020. Patient is not septic. Does not have white count and is afebrile. Second dose of Cardizem given, with good effect. Patient's heart rate remains in the 90s. Will give insulin 10 units subcu for glucose of 302. Sign out to Dr. Su at 2:19 a.m.. <Ila Soto NP - Last Filed: 09/11/20 02:20> On re-evaluation patient with minimal improvement and chest x-ray and clinical exam findings although he was noted to have good response to the 40 mg of Lasix. Patient still complains of some difficulty with breathing although he is not noted to be hypoxic. There is a lactic acidosis that is persisting and would likely benefit from further fluid hydration, but given his current fluid overload state this would need to be done judiciously. I discussed the case with inpatient hospitalist team was agreeable for admission. <Kayla Su MD - Last Filed: 09/11/20 07:56> MDM - Alcohol MDM Narrative Medical decision making narrative: AFib <Ila Soto NP - Last Filed: 09/11/20 02:20> Differential Diagnosis Differential diagnosis: Likely alcohol dependence and alcohol intoxication <Ila Soto NP - Last Filed: 09/11/20 02:20> Medical Records Attestation: I reviewed the patient's medical records. <Ila Soto NP - Last Filed: 09/11/20 02:20> Lab Data Attestation: I reviewed the patient's lab results. <Ila Soto NP - Last Filed: 09/11/20 02:20> Result diagrams: : 09/11/20 07:27 09/10/20 22:16 <Ila Soto NP - Last Filed: 09/11/20 02:20> Labs: Lab Results 09/10/20 09/10/20 09/10/20 Range/Units 22:16 22:16 22:16 WBC 6.3 (4.8-10.8) X10*3/uL RBC 3.74 L (4.60-5.80) X10*6/uL Hgb 12.0 L (14.0-18.0) g/dl Hct 37.4 L (42-52) % MCV 100.0 H (80-98) fL MCH 32.1 (27.0-33.0) pg MCHC 32.1 (31.0-36.0) g/dl RDW 16.8 H (11.0-16.0) % Plt Count 154 L D (160-400) X10*3/uL MPV 9.5 (9.4-12.4) fL Immature Gran % (Auto) 0.2 (0.0-0.4) % Neut % (Auto) 66.7 (45-73) % Lymph % (Auto) 18.1 L (20-40) % [place] % (Auto) 12.9 H (2-11) % Eos % (Auto) 1.3 (0-4) % Baso % (Auto) 0.8 (0-2) % Lymph # (Auto) 1.2 (1.2-4.9) X10*3/uL [place] # (Auto) 0.8 (0.1-1.2) X10*3/uL Eos # (Auto) 0.1 (0.0-0.4) X10*3/uL Baso # (Auto) 0.1 (0.0-0.2) X10*3/uL Abs Immat Gran (auto) 0.01 (0.00-0.03) X10*3/uL Absolute Neuts (auto) 4.2 (2.0-8.3) X10*3/uL Absolute Nucleated RBC 0.000 (0.0-0.012) X10*3/uL Nucleated RBC % (auto) 0.0 (0.0-0.2) /100WBC Sodium 138 (135-145) mmol/L Potassium 3.8 (3.3-5.1) mmol/L Chloride 103 (96-108) mmol/L Carbon Dioxide 21 L (22-29) mmol/L Anion Gap 18 (12-20) BUN 7 L D (9-16) mg/dL Creatinine 0.88 (0.5-1.4) mg/dL Estim Creat Clear Calc 122.6 Estimated GFR > 60 Random Glucose 302 H (60-115) mg/dL Lactic Acid 2.3 H* (0.5-2.0) mmol/L Lactic Acid Fup @ 2Hr (0.5-2.0) mmol/L Calcium 8.8 D (8.4-10.2) mg/dL Troponin I High Sens (<3.5-35.0) ng/L Urine Color Urine Appearance Urine pH (5.0-8.0) Ur Specific [place] (1.005-1.025) Urine Protein (NEG-TRACE) MG/DL Urine Glucose (UA) (NEG) MG/DL Urine Ketones (NEG) MG/DL Urine Blood (NEG) Urine Nitrite (NEG) Ur Leukocyte Esterase (NEG) Urine RBC (0) /HPF Urine WBC (0-4) /HPF Ur Squamous Epith Cells /LPF Urine Bacteria /LPF Hyaline Casts /LPF Granular Casts /LPF Urine Mucus /LPF Urine Opiates Screen (Not Detect) Ur Barbiturates Screen (Not Detect) Ur Phencyclidine Scrn (Not Detect) Ur Amphetamines Screen (Not Detect) U Benzodiazepines Scrn (Not Detect) Urine Cocaine Screen (Not Detect) U Marijuana (THC) Screen (Not Detect) Ethyl Alcohol mg/dL COVID-19 ([facility]I) (Negative) COVID-19 Clin Com 09/10/20 09/10/20 09/11/20 Range/Units 22:17 22:17 04:19 WBC (4.8-10.8) X10*3/uL RBC (4.60-5.80) X10*6/uL Hgb (14.0-18.0) g/dl Hct (42-52) % MCV (80-98) fL MCH (27.0-33.0) pg MCHC (31.0-36.0) g/dl RDW (11.0-16.0) % Plt Count (160-400) X10*3/uL MPV (9.4-12.4) fL Immature Gran % (Auto) (0.0-0.4) % Neut % (Auto) (45-73) % Lymph % (Auto) (20-40) % [place] % (Auto) (2-11) % Eos % (Auto) (0-4) % Baso % (Auto) (0-2) % Lymph # (Auto) (1.2-4.9) X10*3/uL [place] # (Auto) (0.1-1.2) X10*3/uL Eos # (Auto) (0.0-0.4) X10*3/uL Baso # (Auto) (0.0-0.2) X10*3/uL Abs Immat Gran (auto) (0.00-0.03) X10*3/uL Absolute Neuts (auto) (2.0-8.3) X10*3/uL Absolute Nucleated RBC (0.0-0.012) X10*3/uL Nucleated RBC % (auto) (0.0-0.2) /100WBC Sodium (135-145) mmol/L Potassium (3.3-5.1) mmol/L Chloride (96-108) mmol/L Carbon Dioxide (22-29) mmol/L Anion Gap (12-20) BUN (9-16) mg/dL Creatinine (0.5-1.4) mg/dL Estim Creat Clear Calc Estimated GFR Random Glucose (60-115) mg/dL Lactic Acid (0.5-2.0) mmol/L Lactic Acid Fup @ 2Hr (0.5-2.0) mmol/L Calcium (8.4-10.2) mg/dL Troponin I High Sens 37.9 H* (<3.5-35.0) ng/L Urine Color Urine Appearance Urine pH (5.0-8.0) Ur Specific [place] (1.005-1.025) Urine Protein (NEG-TRACE) MG/DL Urine Glucose (UA) (NEG) MG/DL Urine Ketones (NEG) MG/DL Urine Blood (NEG) Urine Nitrite (NEG) Ur Leukocyte Esterase (NEG) Urine RBC (0) /HPF Urine WBC (0-4) /HPF Ur Squamous Epith Cells /LPF Urine Bacteria /LPF Hyaline Casts /LPF Granular Casts /LPF Urine Mucus /LPF Urine Opiates Screen (Not Detect) Ur Barbiturates Screen (Not Detect) Ur Phencyclidine Scrn (Not Detect) Ur Amphetamines Screen (Not Detect) U Benzodiazepines Scrn (Not Detect) Urine Cocaine Screen (Not Detect) U Marijuana (THC) Screen (Not Detect) Ethyl Alcohol 355 H* mg/dL COVID-19 ([facility]I) Negative (Negative) COVID-19 Clin Com See Note 05/24/21 05/24/21 05/24/21 Range/Units 04:19 04:19 04:38 WBC (4.8-10.8) X10*3/uL RBC (4.60-5.80) X10*6/uL Hgb (14.0-18.0) g/dl Hct (42-52) % MCV (80-98) fL MCH (27.0-33.0) pg MCHC (31.0-36.0) g/dl RDW (11.0-16.0) % Plt Count (160-400) X10*3/uL MPV (9.4-12.4) fL Immature Gran % (Auto) (0.0-0.4) % Neut % (Auto) (45-73) % Lymph % (Auto) (20-40) % [place] % (Auto) (2-11) % Eos % (Auto) (0-4) % Baso % (Auto) (0-2) % Lymph # (Auto) (1.2-4.9) X10*3/uL [place] # (Auto) (0.1-1.2) X10*3/uL Eos # (Auto) (0.0-0.4) X10*3/uL Baso # (Auto) (0.0-0.2) X10*3/uL Abs Immat Gran (auto) (0.00-0.03) X10*3/uL Absolute Neuts (auto) (2.0-8.3) X10*3/uL Absolute Nucleated RBC (0.0-0.012) X10*3/uL Nucleated RBC % (auto) (0.0-0.2) /100WBC Sodium (135-145) mmol/L Potassium (3.3-5.1) mmol/L Chloride (96-108) mmol/L Carbon Dioxide (22-29) mmol/L Anion Gap (12-20) BUN (9-16) mg/dL Creatinine (0.5-1.4) mg/dL Estim Creat Clear Calc Estimated GFR Random Glucose (60-115) mg/dL Lactic Acid (0.5-2.0) mmol/L Lactic Acid Fup @ 2Hr 2.2 H* (0.5-2.0) mmol/L Calcium (8.4-10.2) mg/dL Troponin I High Sens (<3.5-35.0) ng/L Urine Color YELLOW Urine Appearance CLEAR Urine pH 6.0 (5.0-8.0) Ur Specific [place] >= 1.030 H (1.005-1.025) Urine Protein 3+ H (NEG-TRACE) MG/DL Urine Glucose (UA) >=1000 H (NEG) MG/DL Urine Ketones NEG (NEG) MG/DL Urine Blood 2+ H (NEG) Urine Nitrite NEG (NEG) Ur Leukocyte Esterase NEG (NEG) Urine RBC 1-4 (0) /HPF Urine WBC 1-4 (0-4) /HPF Ur Squamous Epith Cells 1+ /LPF Urine Bacteria 1+ /LPF Hyaline Casts 10-14 /LPF Granular Casts 5-9 /LPF Urine Mucus 1+ /LPF Urine Opiates Screen Not Detected (Not Detect) Ur Barbiturates Screen POSITIVE H (Not Detect) Ur Phencyclidine Scrn Not Detected (Not Detect) Ur Amphetamines Screen Not Detected (Not Detect) U Benzodiazepines Scrn Not Detected (Not Detect) Urine Cocaine Screen Not Detected (Not Detect) U Marijuana (THC) Screen Not Detected (Not Detect) Ethyl Alcohol mg/dL COVID-19 ([facility]I) (Negative) COVID-19 Clin Com 09/11/20 Range/Units 07:27 WBC 4.9 (4.8-10.8) X10*3/uL RBC 3.61 L (4.60-5.80) X10*6/uL Hgb 11.7 L (14.0-18.0) g/dl Hct 35.7 L (42-52) % MCV 98.9 H (80-98) fL MCH 32.4 (27.0-33.0) pg MCHC 32.8 (31.0-36.0) g/dl RDW 16.7 H (11.0-16.0) % Plt Count 130 L (160-400) X10*3/uL MPV 9.3 L (9.4-12.4) fL Immature Gran % (Auto) 0.6 H (0.0-0.4) % Neut % (Auto) 66.5 (45-73) % Lymph % (Auto) 20.5 (20-40) % [place] % (Auto) 10.0 (2-11) % Eos % (Auto) 1.8 (0-4) % Baso % (Auto) 0.6 (0-2) % Lymph # (Auto) 1.0 L (1.2-4.9) X10*3/uL [place] # (Auto) 0.5 (0.1-1.2) X10*3/uL Eos # (Auto) 0.1 (0.0-0.4) X10*3/uL Baso # (Auto) 0.0 (0.0-0.2) X10*3/uL Abs Immat Gran (auto) 0.03 (0.00-0.03) X10*3/uL Absolute Neuts (auto) 3.2 (2.0-8.3) X10*3/uL Absolute Nucleated RBC 0.000 (0.0-0.012) X10*3/uL Nucleated RBC % (auto) 0.0 (0.0-0.2) /100WBC Sodium (135-145) mmol/L Potassium (3.3-5.1) mmol/L Chloride (96-108) mmol/L Carbon Dioxide (22-29) mmol/L Anion Gap (12-20) BUN (9-16) mg/dL Creatinine (0.5-1.4) mg/dL Estim Creat Clear Calc Estimated GFR Random Glucose (60-115) mg/dL Lactic Acid (0.5-2.0) mmol/L Lactic Acid Fup @ 2Hr (0.5-2.0) mmol/L Calcium (8.4-10.2) mg/dL Troponin I High Sens (<3.5-35.0) ng/L Urine Color Urine Appearance Urine pH (5.0-8.0) Ur Specific [place] (1.005-1.025) Urine Protein (NEG-TRACE) MG/DL Urine Glucose (UA) (NEG) MG/DL Urine Ketones (NEG) MG/DL Urine Blood (NEG) Urine Nitrite (NEG) Ur Leukocyte Esterase (NEG) Urine RBC (0) /HPF Urine WBC (0-4) /HPF Ur Squamous Epith Cells /LPF Urine Bacteria /LPF Hyaline Casts /LPF Granular Casts /LPF Urine Mucus /LPF Urine Opiates Screen (Not Detect) Ur Barbiturates Screen (Not Detect) Ur Phencyclidine Scrn (Not Detect) Ur Amphetamines Screen (Not Detect) U Benzodiazepines Scrn (Not Detect) Urine Cocaine Screen (Not Detect) U Marijuana (THC) Screen (Not Detect) Ethyl Alcohol mg/dL COVID-19 ([facility]I) (Negative) COVID-19 Clin Com <Ila Soto, DENITRATOR OPERATOR - Last Filed: 09/11/20 02:20> Lab Results 09/10/20 09/10/20 09/10/20 Range/Units 22:16 22:16 22:16 WBC 6.3 (4.8-10.8) X10*3/uL RBC 3.74 L (4.60-5.80) X10*6/uL Hgb 12.0 L (14.0-18.0) g/dl Hct 37.4 L (42-52) % MCV 100.0 H (80-98) fL MCH 32.1 (27.0-33.0) pg MCHC 32.1 (31.0-36.0) g/dl RDW 16.8 H (11.0-16.0) % Plt Count 154 L D (160-400) X10*3/uL MPV 9.5 (9.4-12.4) fL Immature Gran % (Auto) 0.2 (0.0-0.4) % Neut % (Auto) 66.7 (45-73) % Lymph % (Auto) 18.1 L (20-40) % [place] % (Auto) 12.9 H (2-11) % Eos % (Auto) 1.3 (0-4) % Baso % (Auto) 0.8 (0-2) % Lymph # (Auto) 1.2 (1.2-4.9) X10*3/uL [place] # (Auto) 0.8 (0.1-1.2) X10*3/uL Eos # (Auto) 0.1 (0.0-0.4) X10*3/uL Baso # (Auto) 0.1 (0.0-0.2) X10*3/uL Abs Immat Gran (auto) 0.01 (0.00-0.03) X10*3/uL Absolute Neuts (auto) 4.2 (2.0-8.3) X10*3/uL Absolute Nucleated RBC 0.000 (0.0-0.012) X10*3/uL Nucleated RBC % (auto) 0.0 (0.0-0.2) /100WBC Sodium 138 (135-145) mmol/L Potassium 3.8 (3.3-5.1) mmol/L Chloride 103 (96-108) mmol/L Carbon Dioxide 21 L (22-29) mmol/L Anion Gap 18 (12-20) BUN 7 L D (9-16) mg/dL Creatinine 0.88 (0.5-1.4) mg/dL Estim Creat Clear Calc 122.6 Estimated GFR > 60 Random Glucose 302 H (60-115) mg/dL Lactic Acid 2.3 H* (0.5-2.0) mmol/L Lactic Acid Fup @ 2Hr (0.5-2.0) mmol/L Calcium 8.8 D (8.4-10.2) mg/dL Troponin I High Sens (<3.5-35.0) ng/L Urine Color Urine Appearance Urine pH (5.0-8.0) Ur Specific [place] (1.005-1.025) Urine Protein (NEG-TRACE) MG/DL Urine Glucose (UA) (NEG) MG/DL Urine Ketones (NEG) MG/DL Urine Blood (NEG) Urine Nitrite (NEG) Ur Leukocyte Esterase (NEG) Urine RBC (0) /HPF Urine WBC (0-4) /HPF Ur Squamous Epith Cells /LPF Urine Bacteria /LPF Hyaline Casts /LPF Granular Casts /LPF Urine Mucus /LPF Urine Opiates Screen (Not Detect) Ur Barbiturates Screen (Not Detect) Ur Phencyclidine Scrn (Not Detect) Ur Amphetamines Screen (Not Detect) U Benzodiazepines Scrn (Not Detect) Urine Cocaine Screen (Not Detect) U Marijuana (THC) Screen (Not Detect) Ethyl Alcohol mg/dL COVID-19 ([facility]) (Negative) COVID-19 Clin Com 09/10/20 09/10/20 09/11/20 Range/Units 22:17 22:17 04:19 WBC (4.8-10.8) X10*3/uL RBC (4.60-5.80) X10*6/uL Hgb (14.0-18.0) g/dl Hct (42-52) % MCV (80-98) fL MCH (27.0-33.0) pg MCHC (31.0-36.0) g/dl RDW (11.0-16.0) % Plt Count (160-400) X10*3/uL MPV (9.4-12.4) fL Immature Gran % (Auto) (0.0-0.4) % Neut % (Auto) (45-73) % Lymph % (Auto) (20-40) % [place] % (Auto) (2-11) % Eos % (Auto) (0-4) % Baso % (Auto) (0-2) % Lymph # (Auto) (1.2-4.9) X10*3/uL [place] # (Auto) (0.1-1.2) X10*3/uL Eos # (Auto) (0.0-0.4) X10*3/uL Baso # (Auto) (0.0-0.2) X10*3/uL Abs Immat Gran (auto) (0.00-0.03) X10*3/uL Absolute Neuts (auto) (2.0-8.3) X10*3/uL Absolute Nucleated RBC (0.0-0.012) X10*3/uL Nucleated RBC % (auto) (0.0-0.2) /100WBC Sodium (135-145) mmol/L Potassium (3.3-5.1) mmol/L Chloride (96-108) mmol/L Carbon Dioxide (22-29) mmol/L Anion Gap (12-20) BUN (9-16) mg/dL Creatinine (0.5-1.4) mg/dL Estim Creat Clear Calc Estimated GFR Random Glucose (60-115) mg/dL Lactic Acid (0.5-2.0) mmol/L Lactic Acid Fup @ 2Hr (0.5-2.0) mmol/L Calcium (8.4-10.2) mg/dL Troponin I High Sens 37.9 H* (<3.5-35.0) ng/L Urine Color Urine Appearance Urine pH (5.0-8.0) Ur Specific [place] (1.005-1.025) Urine Protein (NEG-TRACE) MG/DL Urine Glucose (UA) (NEG) MG/DL Urine Ketones (NEG) MG/DL Urine Blood (NEG) Urine Nitrite (NEG) Ur Leukocyte Esterase (NEG) Urine RBC (0) /HPF Urine WBC (0-4) /HPF Ur Squamous Epith Cells /LPF Urine Bacteria /LPF Hyaline Casts /LPF Granular Casts /LPF Urine Mucus /LPF Urine Opiates Screen (Not Detect) Ur Barbiturates Screen (Not Detect) Ur Phencyclidine Scrn (Not Detect) Ur Amphetamines Screen (Not Detect) U Benzodiazepines Scrn (Not Detect) Urine Cocaine Screen (Not Detect) U Marijuana (THC) Screen (Not Detect) Ethyl Alcohol 355 H* mg/dL COVID-19 ([facility]I) Negative (Negative) COVID-19 Clin Com See Note 09/11/20 09/11/20 09/11/20 Range/Units 04:19 04:19 04:38 WBC (4.8-10.8) X10*3/uL RBC (4.60-5.80) X10*6/uL Hgb (14.0-18.0) g/dl Hct (42-52) % MCV (80-98) fL MCH (27.0-33.0) pg MCHC (31.0-36.0) g/dl RDW (11.0-16.0) % Plt Count (160-400) X10*3/uL MPV (9.4-12.4) fL Immature Gran % (Auto) (0.0-0.4) % Neut % (Auto) (45-73) % Lymph % (Auto) (20-40) % [place] % (Auto) (2-11) % Eos % (Auto) (0-4) % Baso % (Auto) (0-2) % Lymph # (Auto) (1.2-4.9) X10*3/uL [place] # (Auto) (0.1-1.2) X10*3/uL Eos # (Auto) (0.0-0.4) X10*3/uL Baso # (Auto) (0.0-0.2) X10*3/uL Abs Immat Gran (auto) (0.00-0.03) X10*3/uL Absolute Neuts (auto) (2.0-8.3) X10*3/uL Absolute Nucleated RBC (0.0-0.012) X10*3/uL Nucleated RBC % (auto) (0.0-0.2) /100WBC Sodium (135-145) mmol/L Potassium (3.3-5.1) mmol/L Chloride (96-108) mmol/L Carbon Dioxide (22-29) mmol/L Anion Gap (12-20) BUN (9-16) mg/dL Creatinine (0.5-1.4) mg/dL Estim Creat Clear Calc Estimated GFR Random Glucose (60-115) mg/dL Lactic Acid (0.5-2.0) mmol/L Lactic Acid Fup @ 2Hr 2.2 H* (0.5-2.0) mmol/L Calcium (8.4-10.2) mg/dL Troponin I High Sens (<3.5-35.0) ng/L Urine Color YELLOW Urine Appearance CLEAR Urine pH 6.0 (5.0-8.0) Ur Specific [place] >= 1.030 H (1.005-1.025) Urine Protein 3+ H (NEG-TRACE) MG/DL Urine Glucose (UA) >=1000 H (NEG) MG/DL Urine Ketones NEG (NEG) MG/DL Urine Blood 2+ H (NEG) Urine Nitrite NEG (NEG) Ur Leukocyte Esterase NEG (NEG) Urine RBC 1-4 (0) /HPF Urine WBC 1-4 (0-4) /HPF Ur Squamous Epith Cells 1+ /LPF Urine Bacteria 1+ /LPF Hyaline Casts 10-14 /LPF Granular Casts 5-9 /LPF Urine Mucus 1+ /LPF Urine Opiates Screen Not Detected (Not Detect) Ur Barbiturates Screen POSITIVE H (Not Detect) Ur Phencyclidine Scrn Not Detected (Not Detect) Ur Amphetamines Screen Not Detected (Not Detect) U Benzodiazepines Scrn Not Detected (Not Detect) Urine Cocaine Screen Not Detected (Not Detect) U Marijuana (THC) Screen Not Detected (Not Detect) Ethyl Alcohol mg/dL COVID-19 ([facility]) (Negative) COVID-19 Clin Com 09/11/20 Range/Units 07:27 WBC 4.9 (4.8-10.8) X10*3/uL RBC 3.61 L (4.60-5.80) X10*6/uL Hgb 11.7 L (14.0-18.0) g/dl Hct 35.7 L (42-52) % MCV 98.9 H (80-98) fL MCH 32.4 (27.0-33.0) pg MCHC 32.8 (31.0-36.0) g/dl RDW 16.7 H (11.0-16.0) % Plt Count 130 L (160-400) X10*3/uL MPV 9.3 L (9.4-12.4) fL Immature Gran % (Auto) 0.6 H (0.0-0.4) % Neut % (Auto) 66.5 (45-73) % Lymph % (Auto) 20.5 (20-40) % [place] % (Auto) 10.0 (2-11) % Eos % (Auto) 1.8 (0-4) % Baso % (Auto) 0.6 (0-2) % Lymph # (Auto) 1.0 L (1.2-4.9) X10*3/uL [place] # (Auto) 0.5 (0.1-1.2) X10*3/uL Eos # (Auto) 0.1 (0.0-0.4) X10*3/uL Baso # (Auto) 0.0 (0.0-0.2) X10*3/uL Abs Immat Gran (auto) 0.03 (0.00-0.03) X10*3/uL Absolute Neuts (auto) 3.2 (2.0-8.3) X10*3/uL Absolute Nucleated RBC 0.000 (0.0-0.012) X10*3/uL Nucleated RBC % (auto) 0.0 (0.0-0.2) /100WBC Sodium (135-145) mmol/L Potassium (3.3-5.1) mmol/L Chloride (96-108) mmol/L Carbon Dioxide (22-29) mmol/L Anion Gap (12-20) BUN (9-16) mg/dL Creatinine (0.5-1.4) mg/dL Estim Creat Clear Calc Estimated GFR Random Glucose (60-115) mg/dL Lactic Acid (0.5-2.0) mmol/L Lactic Acid Fup @ 2Hr (0.5-2.0) mmol/L Calcium (8.4-10.2) mg/dL Troponin I High Sens (<3.5-35.0) ng/L Urine Color Urine Appearance Urine pH (5.0-8.0) Ur Specific [place] (1.005-1.025) Urine Protein (NEG-TRACE) MG/DL Urine Glucose (UA) (NEG) MG/DL Urine Ketones (NEG) MG/DL Urine Blood (NEG) Urine Nitrite (NEG) Ur Leukocyte Esterase (NEG) Urine RBC (0) /HPF Urine WBC (0-4) /HPF Ur Squamous Epith Cells /LPF Urine Bacteria /LPF Hyaline Casts /LPF Granular Casts /LPF Urine Mucus /LPF Urine Opiates Screen (Not Detect) Ur Barbiturates Screen (Not Detect) Ur Phencyclidine Scrn (Not Detect) Ur Amphetamines Screen (Not Detect) U Benzodiazepines Scrn (Not Detect) Urine Cocaine Screen (Not Detect) U Marijuana (THC) Screen (Not Detect) Ethyl Alcohol mg/dL COVID-19 ([facility]) (Negative) COVID-19 Clin Com <Kayla Su MD - Last Filed: 09/11/20 07:56> Imaging Data Chest x-ray: Attestation: I personally reviewed and interpreted this imaging study as follows: <Ila Soto NP - Last Filed: 09/11/20 02:20> Radiologist's impression: EXAMINATION: XR CHEST CLINICAL INFORMATION: Shortness of breath COMPARISON: Previous chest x-ray most recent 09/03/2020 TECHNIQUE: Frontal view of the chest was obtained. FINDINGS: The cardiac silhouette is enlarged but stable. The lung volumes are low. There is bilateral perihilar airspace disease. Appearance again favors pulmonary edema over pneumonia. There is no pleural effusion or pneumothorax. There are degenerative changes of the spine. XR/XR chest 1V IMPRESSION: Stable enlargement of the cardiac silhouette. Low lung volumes. Bilateral perihilar airspace disease. Differential would include pulmonary edema and pneumonia. <Ila Soto NP - Last Filed: 09/11/20 02:20> Discharge Plan Discharge Clinical Impression: CHF exacerbation, Alcohol withdrawal, Alcohol dependence <Ila Soto NP - Last Filed: 09/11/20 02:20> Patient Disposition: Admitted As Inpatient <Ila Soto NP - Last Filed: 09/11/20 02:20> Prescriptions: No Action multivitamin Tablet 1 tab PO DAILY RF: 0 atorvastatin 40 mg tablet 1 tab PO BEDTIME RF: 0 trazodone 50 mg tablet 1 tab PO BEDTIME RF: 0 gabapentin 400 mg capsule 1 cap PO TID RF: 0 aspirin 81 mg tablet,delayed release (DR/EC) 1 tab PO DAILY RF: 0 metformin 1,000 mg tablet 1 tab PO BID RF: 0 metoprolol tartrate 50 mg tablet 1 tab PO BID RF: 0 omeprazole 20 mg capsule,delayed release(DR/EC) 1 cap PO DAILY RF: 0 ammonium lactate 12 % cream 1 appl topical BID RF: 0 Lantus Solostar U-100 Insulin 100 unit/mL (3 mL) insulin pen 6 unit subcut QAM RF: 0 <Ila Soto NP - Last Filed: 09/11/20 02:20>
--- NOTE | 2020-09-10 21:26 | ECG_ITS ---
Test Reason : TACHYCARDIA Blood Pressure : / mmHG Vent. Rate : 115 BPM Atrial Rate : 081 BPM P-R Int : 000 ms QRS Dur : 096 ms QT Int : 350 ms P-R-T Axes : 000 237 062 degrees QTc Int : 484 ms Atrial fibrillation with rapid ventricular response Anterior infarct (cited on or before 02-JUL-2016) Abnormal ECG When compared with ECG of 03-SEP-2020 19:25, Nonspecific T wave abnormality no longer evident in Anterolateral leads Referred By: Ila Soto Electronically Signed By:ADRIANA CORRAL
[2020-09-10 22:04] VITALS: BP 161/100; PULSE 117; RESP 18; O2SAT 97
[2020-09-10 22:23] LABS: MANUAL DIFF FLAG NO
[2020-09-10 22:26] LABS: Basophils Absolute Auto 0.1 X10*3/uL (0.0-0.2); Basophils Percent Auto 0.8 % (0-2); Eosinophils Absolute Auto 0.1 X10*3/uL (0.0-0.4); Eosinophils Percent Auto 1.3 % (0-4); Hematocrit 37.4 % (42-52); Imm Gran Abs Auto 0.01 X10*3/uL (0.00-0.03); Imm Gran Pct Auto 0.2 % (0.0-0.4); Lymphocytes Absolute Auto 1.2 X10*3/uL (1.2-4.9); Lymphocytes Percent Auto 18.1 % (20-40); Mean Corpuscular HGB Conc 32.1 g/dl (31.0-36.0); Mean Corpuscular Hemoglobin 32.1 pg (27.0-33.0); Mean Platelet Volume 9.5 fL (9.4-12.4); Monocytes Absolute Auto 0.8 X10*3/uL (0.1-1.2); Monocytes Percent Auto 12.9 % (2-11); Neutrophils Absolute Auto 4.2 X10*3/uL (2.0-8.3); Neutrophils Percent Auto 66.7 % (45-73); Platelet Count 154 X10*3/uL (160-400); Red Blood Count 3.74 X10*6/uL (4.60-5.80); Red Cell Distribution Width 16.8 % (11.0-16.0); White Blood Count 6.3 X10*3/uL (4.8-10.8)
[2020-09-10] MEDS: 0.9 % Sodium Chloride 1,000 ML 999 ML IVCONT ×2 (22:29→23:00)
[2020-09-10 22:47] LABS: Ethanol 355 mg/dL
[2020-09-10 22:49] LABS: Anion Gap 18 (12-20); Blood Urea Nitrogen 7 mg/dL (9-16); Calcium 8.8 mg/dL (8.4-10.2); Carbon Dioxide 21 mmol/L (22-29); Chloride 103 mmol/L (96-108); Creatinine Clr Calc Pharmacy 122.6; Estimated Glomerular Filt Rate > 60; Glucose Random 302 mg/dL (60-115); Lactic Acid 2.3 mmol/L (0.5-2.0); Potassium 3.8 mmol/L (3.3-5.1); Sodium 138 mmol/L (135-145)
[2020-09-10 22:58] LABS: Troponin-I High Sensitivity 37.9 ng/L (<3.5-35.0)
[2020-09-10 23:00] VITALS: BP 159/96; PULSE 121
[2020-09-10] MEDS: dilTIAZem HCL 50 MG/10 ML VIAL 10 MG IVPUSH (23:00)
[2020-09-11] VITALS (13 sets, daily range): BP systolic 129–160; BP diastolic 68–98; PULSE 95–122; RESP 16–20; TEMP 36.6–37.1; O2SAT 89–99
[2020-09-11] MEDS: dilTIAZem HCL 50 MG/10 ML VIAL 10 MG IVPUSH (00:20)
[2020-09-11 00:22] LABS: Reflex Lactate? Lactic Acid Added
[2020-09-11] MEDS: Insulin Regular, Human 100 UNIT/ML 3 ML VIAL 10 UNIT SUBCUT (03:36)
[2020-09-11] MEDS: Furosemide 40 MG/4 ML VIAL IVPUSH (03:37)
[2020-09-11 04:39] LABS: Glucose Urine UA >=1000 MG/DL (NEG); Leukocyte Esterase Urine NEG (NEG); Nitrite Urine NEG (NEG); Specific Gravity - Urine >= 1.030 (1.005-1.025); Urine Blood 2+ (NEG); Urine Ketones NEG (NEG); Urine Protein 3+ MG/DL (NEG-TRACE)
[2020-09-11 04:43] LABS: Appearance Urine CLEAR; Color Urine YELLOW
--- NOTE | 2020-09-11 04:45 | PC.NURSE ---
Patient is a difficult stick. Phlebotomy to bedside for repeat lactic acid draw. Laboratory staff aware. 16 [place] castorena placed by David Garcia RN with this RN at bedside assisting. David Garcia RN also medicated the patient on behalf of this RN. Pt incontinent of stool and urine. Soiled clothing placed in patient belongings bad and changed into hospital attire, with complete linen/gown change. Pt vitals have improved since arrival with pulse in 90s at this time. Pt on room air at this time, remains sleepy, but responds to voice when spoken to. Will continue to monitor.
[2020-09-11 04:48] LABS: COVID-19 Test Negative (Negative); IDNOW Serial# 9DD0AD1C
[2020-09-11 04:49] LABS: Bacteria Urine 1+ /LPF; Mucus Urine 1+ /LPF; Squamous Epithelial Cell Urine 1+ /LPF
[2020-09-11 04:51] LABS: Amphetamine Screen Urine Not Detected (Not Detect); Barbiturates, Urine POSITIVE (Not Detect); Benzodiazepines Screen Urine Not Detected (Not Detect); Cannabinoid Screen Urine Not Detected (Not Detect); Cocaine Screen Urine Not Detected (Not Detect); Opiate Screen Urine Not Detected (Not Detect); Phencyclidine Screen Urine Not Detected (Not Detect)
[2020-09-11 05:06] LABS: ~Lactic Acid-LAB USE ONLY 2.2 mmol/L (0.5-2.0)
[2020-09-11 06:41] LABS: Reflex Lactate? 2 Y
--- NOTE | 2020-09-11 07:10 | PC.NURSE ---
Phlebotomy contacted to draw repeat lactic acid at bedside.
[2020-09-11 07:32] LABS: MANUAL DIFF FLAG NO
[2020-09-11 07:37] LABS: Basophils Percent Auto 0.6 % (0-2); Eosinophils Absolute Auto 0.1 X10*3/uL (0.0-0.4); Eosinophils Percent Auto 1.8 % (0-4); Hematocrit 35.7 % (42-52); Hemoglobin 11.7 g/dl (14.0-18.0); Imm Gran Abs Auto 0.03 X10*3/uL (0.00-0.03); Imm Gran Pct Auto 0.6 % (0.0-0.4); Lymphocytes Percent Auto 20.5 % (20-40); Mean Corpuscular HGB Conc 32.8 g/dl (31.0-36.0); Mean Corpuscular Hemoglobin 32.4 pg (27.0-33.0); Mean Corpuscular Volume 98.9 fL (80-98); Mean Platelet Volume 9.3 fL (9.4-12.4); Monocytes Absolute Auto 0.5 X10*3/uL (0.1-1.2); Neutrophils Absolute Auto 3.2 X10*3/uL (2.0-8.3); Neutrophils Percent Auto 66.5 % (45-73); Platelet Count 130 X10*3/uL (160-400); Red Blood Count 3.61 X10*6/uL (4.60-5.80); Red Cell Distribution Width 16.7 % (11.0-16.0); White Blood Count 4.9 X10*3/uL (4.8-10.8)
[2020-09-11 08:02] LABS: Alanine Aminotransferase 21 U/L (0-40); Albumin Level 3.5 g/dL (3.5-5.0); Alkaline Phosphatase 115 U/L (39-117); Anion Gap 16 (12-20); Aspartate Amino Transferase 33 U/L (5-37); Bilirubin Total 0.8 mg/dL (0.0-1.0); Blood Urea Nitrogen 8 mg/dL (9-16); Calcium 8.2 mg/dL (8.4-10.2); Carbon Dioxide 23 mmol/L (22-29); Chloride 104 mmol/L (96-108); Estimated Glomerular Filt Rate > 60; Glucose Random 290 mg/dL (60-115); Potassium 3.8 mmol/L (3.3-5.1); Sodium 139 mmol/L (135-145); Total Protein 7.2 g/dL (6.5-8.0)
[2020-09-11 08:04] LABS: B Type Natriuretic Peptide 75 pg/mL (<100)
[2020-09-11] MEDS: PHENobarbitaL sodium 130 MG/ML VIAL 372 MG IM (08:54)
[2020-09-11] MEDS: PHENobarbitaL sodium 130 MG/ML VIAL 279 MG IM ×2 (10:58→14:25)
--- NOTE | 2020-09-11 13:59 | PC.NURSE ---
Attempted to call report, RN unavailable, will call back
[2020-09-11] MEDS: Heparin Sodium,Porcine 5,000 UNIT/ML VIAL 5000 UNIT SUBCUT ×2 (14:25→21:15)
[2020-09-11] MEDS: Gabapentin 400 MG CAPSULE PO ×2 (14:26→21:12)
[2020-09-11] MEDS: Omeprazole 20 MG CAPSULE.DR PO (14:26)
[2020-09-11] MEDS: Insulin Glargine,Hum.rec.anlog 100 UNIT/ML 10 ML VIAL 6 UNIT SUBCUT (14:26)
[2020-09-11] MEDS: Metoprolol Tartrate 50 MG TABLET PO ×2 (14:26→21:14)
[2020-09-11 14:28] LABS: Glucose, Whole Blood 203 mg/dL (60-115)
--- NOTE | 2020-09-11 14:34 | PC.NURSE ---
Nurse to nurse given to Damaris MARIA. Patient medicated, placed on monitor and storage bin tender and ready for transport.
--- NOTE | 2020-09-11 16:17 | P.HPHOSP_ITS ---
History of Present Illness Date of Service: 09/11/20 Chief Complaint: Dizziness, palpitation, intoxication A 59 years old male with PMH of CHF, recent COVID, cardiomyopathy with low EF, atrial fibrillation, liver cirrhosis, CAD, alcohol abuse who presents to the hospital intoxicated with complaint of dizziness and palpitation. Patient is Tristanian speaker mainly. The patient reports he drinks on daily basis around 3 beers. His alcohol level of above 300 at time of presentation. He reports feeling funny feeling in his chest and his heart is acting irregular. He denies any chest pain, fever, chills, shortness of breath or cough. In the emergency was noted to be in atrial fibrillation with RVR with heart rate in around 120s. Received IV Cardizem and couple of occasions with better control of the heart rate around 100. Noticed lactic acidosis as well with no significant changes on chest x-ray. Bilateral lower extremity swelling was treated with IV fluid in the emergency. Patient admitted for further evaluation and treatment. Review of Systems Review of Systems: No fever, chills but reports dizziness and mild weakness No chest pain, feeling funny feeling in his chest with palpitation No shortness of breath or coughing No abdominal pain, nausea or vomiting No urinary symptoms No any rash or wounds PMFSH Medical History A-fib CAD (coronary artery disease) Cardiomyopathy CHF (congestive heart failure) Cirrhosis Depression Diabetes ETOH abuse HTN (hypertension) Social History Household Members: None Housing: Other Housing Other:: Room above bar Do you presently have visiting nurse or other home services: No Alcohol intake: current Alcohol intake frequency: 3 or more drinks per day Alcohol type: hard liquor Smoking Status: Never smoker Advance Directives: No Advance Directives Information Provided: Yes service: No Current occupational status: unemployed Meds Allergies Allergy/AdvReac Type Severity Reaction Status Date / Time Penicillins [PCN] Allergy Unknown UNKNOWN Verified 09/03/20 16:05 Active Medications: Current Medications Generic Name Dose Route Start Last Admin Trade Name Freq PRN Reason Stop Dose Admin Acetaminophen 650 mg 09/11/20 13:47 Acetaminophen 325 Mg Tablet PO Q6H PRN Pain, Mild (Pain Scale 1-3) Aspirin 81 mg 09/12/20 09:00 Aspirin Enteric Coated 81 Mg Tablet. PO DAILY [facility] Atorvastatin Calcium 40 mg 09/11/20 21:00 Atorvastatin Calcium 40 Mg Tablet PO BEDTIME [facility] Chlordiazepoxide HCl 50 mg 09/11/20 02:44 Chlordiazepoxide Hcl 25 Mg Capsule PO Q2H PRN CIWA greter than 10 Furosemide 20 mg 09/11/20 18:00 Furosemide 20 Mg/2 Ml Vial IVPUSH BID@0900,1800 [facility] Protocol Gabapentin 400 mg 09/11/20 15:00 09/11/20 14:26 Gabapentin 400 Mg Capsule PO 400 mg TID [facility] Administration Heparin Sodium (Porcine) 5,000 unit 09/11/20 13:47 09/11/20 14:25 Heparin Sodium,Porcine 5,000 Unit/Ml Vial SUBCUT 5,000 unit Q8H [facility] Administration Insulin Glargine 6 unit 09/11/20 13:47 09/11/20 14:26 Insulin Glargine,Hum.Rec.Anlog 100 Unit/Ml 10 Ml Vial SUBCUT 6 unit DAILY [facility] Administration Insulin Human Lispro 0 unit 09/11/20 16:30 Insulin Lispro 100 Unit/Ml 3 Ml Vial SUBCUT QIDACHS [facility] Protocol Medication 1 each 09/11/20 08:03 No Benzodiazepines MISCELLANE DAILY [facility] Metoprolol Tartrate 50 mg 09/11/20 13:47 09/11/20 14:26 Metoprolol Tartrate 50 Mg Tablet PO 50 mg BID [facility] Administration Protocol Multivitamins/Vitamin C 1 tab 09/12/20 09:00 Multivitamin Tablet PO DAILY [facility] Omeprazole 20 mg 09/11/20 13:47 09/11/20 14:26 Omeprazole 20 Mg Capsule. PO 20 mg DAILY [facility] Administration Ondansetron HCl 4 mg 09/11/20 13:47 Ondansetron Hcl 4 Mg/2 Ml Vial IVPUSH Q8H PRN Nausea and Vomiting Phenobarbital 60 mg 09/11/20 21:00 Phenobarbital 30 Mg Tablet PO 09/13/20 09:01 BID [facility] Protocol Phenobarbital 30 mg 09/13/20 21:00 Phenobarbital 30 Mg Tablet PO 09/15/20 09:01 BID [facility] Protocol Phenobarbital 30 mg 09/16/20 09:00 Phenobarbital 30 Mg Tablet PO 09/17/20 09:01 DAILY [facility] Protocol Sodium Chloride 3 ml 09/11/20 16:00 0.9 % Sodium Chloride Flush 3 Ml [facility] Trazodone HCl 50 mg 09/11/20 21:00 Trazodone Hcl 50 Mg Tablet PO BEDTIME [facility] Home Medications Medication Instructions Recorded Confirmed Last Taken Type ammonium lactate 1 appl TOPICAL BID 09/11/20 09/11/20 Unknown History aspirin 1 tab PO DAILY 09/11/20 09/11/20 Unknown History atorvastatin 1 tab PO BEDTIME 09/11/20 09/11/20 Unknown History gabapentin 1 cap PO TID 09/11/20 09/11/20 Unknown History insulin glargine [Lantus Solostar 6 unit SUBCUT QAM 09/11/20 09/11/20 Unknown History U-100 Insulin] metformin 1 tab PO BID 09/11/20 09/11/20 Unknown History metoprolol tartrate 1 tab PO BID 09/11/20 09/11/20 Unknown History multivitamin 1 tab PO DAILY 09/11/20 09/11/20 Unknown History omeprazole 1 cap PO DAILY 09/11/20 09/11/20 Unknown History trazodone 1 tab PO BEDTIME 09/11/20 09/11/20 Unknown History Physical Exam Vital Signs and Narrative: Vital Signs: Last Vital Signs Temp 97.8 F 09/11/20 15:32 Pulse 101 H 09/11/20 15:32 Resp 18 09/11/20 15:32 BP 129/68 09/11/20 15:32 Pulse Ox 98 09/11/20 15:32 Oxygen Flow Rate 2 09/10/20 21:05 Body Mass Index 36.0 Const: Other: Constitutional : Alert, oriented, sleepy and not interested in answering questions Neck : Normal inspection, Supple Cardiovascular : Irregular irregular, tachycardia, S1 S2, +1 bilateral lower extremity edema Respiratory : Decreased bilateral air entry, no crackles, no wheezes or rhonchi Gastrointestinal: soft, lax, Normal bowel sounds, Non tender Skin : Warm/Dry, No rash Neurological : Alert & oriented to place and time, No focal deficit Results Labs CBC and Chem 7: 09/11/20 07:27 09/11/20 07:27 Labs: Laboratory Results - last 24 hr 09/10/20 09/10/20 09/10/20 22:16 22:16 22:16 MCV 100.0 H MCH 32.1 MCHC 32.1 RDW 16.8 H Plt Count 154 L D MPV 9.5 Immature Gran % (Auto) 0.2 Neut % (Auto) 66.7 Lymph % (Auto) 18.1 L Posey % (Auto) 12.9 H Eos % (Auto) 1.3 Baso % (Auto) 0.8 Lymph # (Auto) 1.2 Posey # (Auto) 0.8 Eos # (Auto) 0.1 Baso # (Auto) 0.1 Abs Immat Gran (auto) 0.01 Absolute Neuts (auto) 4.2 Absolute Nucleated RBC 0.000 Nucleated RBC % (auto) 0.0 Anion Gap 18 Estim Creat Clear Calc 122.6 Estimated GFR > 60 POC Glucose Random Glucose 302 H Lactic Acid 2.3 H* Lactic Acid Fup @ 2Hr Lactic Acid Fup @ 4Hr Calcium 8.8 D Total Bilirubin AST ALT Alkaline Phosphatase Troponin I High Sens B-Natriuretic Peptide Total Protein Albumin Urine Color Urine Appearance Urine pH Ur Specific [place] Urine Protein Urine Glucose (UA) Urine Ketones Urine Blood Urine Nitrite Ur Leukocyte Esterase Urine RBC Urine WBC Ur Squamous Epith Cells Urine Bacteria Hyaline Casts Granular Casts Urine Mucus Urine Opiates Screen Ur Barbiturates Screen Ur Phencyclidine Scrn Ur Amphetamines Screen U Benzodiazepines Scrn Urine Cocaine Screen U Marijuana (THC) Screen Ethyl Alcohol COVID-19 ([facility]) COVID-19 Clin Com 09/10/20 09/10/20 09/11/20 22:17 22:17 04:19 MCV MCH MCHC RDW Plt Count MPV Immature Gran % (Auto) Neut % (Auto) Lymph % (Auto) Posey % (Auto) Eos % (Auto) Baso % (Auto) Lymph # (Auto) Posey # (Auto) Eos # (Auto) Baso # (Auto) Abs Immat Gran (auto) Absolute Neuts (auto) Absolute Nucleated RBC Nucleated RBC % (auto) Anion Gap Estim Creat Clear Calc Estimated GFR POC Glucose Random Glucose Lactic Acid Lactic Acid Fup @ 2Hr Lactic Acid Fup @ 4Hr Calcium Total Bilirubin AST ALT Alkaline Phosphatase Troponin I High Sens 37.9 H* B-Natriuretic Peptide Total Protein Albumin Urine Color Urine Appearance Urine pH Ur Specific [place] Urine Protein Urine Glucose (UA) Urine Ketones Urine Blood Urine Nitrite Ur Leukocyte Esterase Urine RBC Urine WBC Ur Squamous Epith Cells Urine Bacteria Hyaline Casts Granular Casts Urine Mucus Urine Opiates Screen Ur Barbiturates Screen Ur Phencyclidine Scrn Ur Amphetamines Screen U Benzodiazepines Scrn Urine Cocaine Screen U Marijuana (THC) Screen Ethyl Alcohol 355 H* COVID-19 ([facility]) Negative COVID-19 Clin Com See Note 09/11/20 09/11/20 09/11/20 04:19 04:19 04:38 MCV MCH MCHC RDW Plt Count MPV Immature Gran % (Auto) Neut % (Auto) Lymph % (Auto) Posey % (Auto) Eos % (Auto) Baso % (Auto) Lymph # (Auto) Posey # (Auto) Eos # (Auto) Baso # (Auto) Abs Immat Gran (auto) Absolute Neuts (auto) Absolute Nucleated RBC Nucleated RBC % (auto) Anion Gap Estim Creat Clear Calc Estimated GFR POC Glucose Random Glucose Lactic Acid Lactic Acid Fup @ 2Hr 2.2 H* Lactic Acid Fup @ 4Hr Calcium Total Bilirubin AST ALT Alkaline Phosphatase Troponin I High Sens B-Natriuretic Peptide Total Protein Albumin Urine Color YELLOW Urine Appearance CLEAR Urine pH 6.0 Ur Specific [place] >= 1.030 H Urine Protein 3+ H Urine Glucose (UA) >=1000 H Urine Ketones NEG Urine Blood 2+ H Urine Nitrite NEG Ur Leukocyte Esterase NEG Urine RBC 1-4 Urine WBC 1-4 Ur Squamous Epith Cells 1+ Urine Bacteria 1+ Hyaline Casts 10-14 Granular Casts 5-9 Urine Mucus 1+ Urine Opiates Screen Not Detected Ur Barbiturates Screen POSITIVE H Ur Phencyclidine Scrn Not Detected Ur Amphetamines Screen Not Detected U Benzodiazepines Scrn Not Detected Urine Cocaine Screen Not Detected U Marijuana (THC) Screen Not Detected Ethyl Alcohol COVID-19 ([facility]) COVID-19 Clin Com 09/11/20 09/11/20 09/11/20 07:27 07:27 07:27 MCV 98.9 H MCH 32.4 MCHC 32.8 RDW 16.7 H Plt Count 130 L MPV 9.3 L Immature Gran % (Auto) 0.6 H Neut % (Auto) 66.5 Lymph % (Auto) 20.5 Posey % (Auto) 10.0 Eos % (Auto) 1.8 Baso % (Auto) 0.6 Lymph # (Auto) 1.0 L Posey # (Auto) 0.5 Eos # (Auto) 0.1 Baso # (Auto) 0.0 Abs Immat Gran (auto) 0.03 Absolute Neuts (auto) 3.2 Absolute Nucleated RBC 0.000 Nucleated RBC % (auto) 0.0 Anion Gap 16 Estim Creat Clear Calc 152.0 Estimated GFR > 60 POC Glucose Random Glucose 290 H Lactic Acid Lactic Acid Fup @ 2Hr Lactic Acid Fup @ 4Hr 2.0 Calcium 8.2 L D Total Bilirubin 0.8 AST 33 ALT 21 Alkaline Phosphatase 115 Troponin I High Sens B-Natriuretic Peptide Total Protein 7.2 Albumin 3.5 Urine Color Urine Appearance Urine pH Ur Specific [place] Urine Protein Urine Glucose (UA) Urine Ketones Urine Blood Urine Nitrite Ur Leukocyte Esterase Urine RBC Urine WBC Ur Squamous Epith Cells Urine Bacteria Hyaline Casts Granular Casts Urine Mucus Urine Opiates Screen Ur Barbiturates Screen Ur Phencyclidine Scrn Ur Amphetamines Screen U Benzodiazepines Scrn Urine Cocaine Screen U Marijuana (THC) Screen Ethyl Alcohol COVID-19 ([facility]) COVID-19 [employer] 09/11/20 09/11/20 09/11/20 07:27 08:52 14:25 MCV MCH MCHC RDW Plt Count MPV Immature Gran % (Auto) Neut % (Auto) Lymph % (Auto) Posey % (Auto) Eos % (Auto) Baso % (Auto) Lymph # (Auto) Posey # (Auto) Eos # (Auto) Baso # (Auto) Abs Immat Gran (auto) Absolute Neuts (auto) Absolute Nucleated RBC Nucleated RBC % (auto) Anion Gap Estim Creat Clear Calc Estimated GFR POC Glucose 203 H Random Glucose Lactic Acid Lactic Acid Fup @ 2Hr Lactic Acid Fup @ 4Hr Calcium Total Bilirubin AST ALT Alkaline Phosphatase Troponin I High Sens 24.0 B-Natriuretic Peptide 75 Total Protein Albumin Urine Color Urine Appearance Urine pH Ur Specific [place] Urine Protein Urine Glucose (UA) Urine Ketones Urine Blood Urine Nitrite Ur Leukocyte Esterase Urine RBC Urine WBC Ur Squamous Epith Cells Urine Bacteria Hyaline Casts Granular Casts Urine Mucus Urine Opiates Screen Ur Barbiturates Screen Ur Phencyclidine Scrn Ur Amphetamines Screen U Benzodiazepines Scrn Urine Cocaine Screen U Marijuana (THC) Screen Ethyl Alcohol COVID-19 ([facility]) COVID-19 [facility] Radiologist's Impressions: Impressions Chest X-Ray 09/10/20 21:27 IMPRESSION: Stable enlargement of the cardiac silhouette. Low lung volumes. Bilateral perihilar airspace disease. Differential would include pulmonary edema and pneumonia. Chest X-Ray 09/11/20 06:20 IMPRESSION: Persistent central vascular prominence and suggestion of mild right patchy basilar opacity. Appearance is similar to 09/10/2020. Assessment and Plan (1) CHF exacerbation: Status: Acute (2) Alcohol withdrawal: Status: Acute (3) Alcohol dependence: Status: Acute (4) Atrial fibrillation, rapid: Status: Acute A 59 years old male with PMH of CHF, recent COVID, cardiomyopathy with low EF, atrial fibrillation, liver cirrhosis, CAD, alcohol abuse who presents to the hospital intoxicated with complaint of dizziness and palpitation Atrial fibrillation with RVR Secondary to chronic alcohol abuse and cardiomyopathy Received IV Cardizem with fair response continue home medications for the time being consider IV Cardizem drip if heart rate goes up Replacement of magnesium Patient is not on anticoagulation from before, investigate Acute hypoxic respiratory failure Secondary to CHF exacerbation Oxygen of 89 at room air in ED BNP within normal but has bilateral lower extremity swelling Recent echo from 2019 showed EF 10-15% Chest x-ray showing congestion with previous picture of recent COVID as well Has component of cirrhosis as well Start gentle diuresis with Lasix monitor intake and output Follow BMP Alcohol abuse Alcohol withdrawal Start phenobarbital protocol To add thiamine and folic acid Type 2 diabetes SSI, Lantus diabetic diet Thrombocytopenia Secondary to liver cirrhosis continue to monitor DVT PPX Heparin
[2020-09-11 16:43] LABS: Glucose, Whole Blood 177 mg/dL (60-115)
[2020-09-11] MEDS: Magnesium Sulfate/D5W 1 GM/100 ML PIGGYBACK IV (16:50)
[2020-09-11] MEDS: Furosemide 20 MG/2 ML VIAL IVPUSH (16:54)
[2020-09-11] MEDS: Insulin Lispro 100 UNIT/ML 3 ML VIAL SUBCUT ×2 (16:55→21:10)
[2020-09-11] MEDS: 0.9 % Sodium Chloride Flush 3 ML SYRINGE IVFLUSH (16:55)
[2020-09-11 17:26] LABS: Magnesium 1.4 mg/dL (1.6-2.6)
[2020-09-11 20:11] LABS: Glucose, Whole Blood 190 mg/dL (60-115)
[2020-09-11] MEDS: PHENobarbitaL 30 MG TABLET 60 MG PO (21:11)
[2020-09-11] MEDS: Atorvastatin Calcium 40 MG TABLET PO (21:12)
[2020-09-11] MEDS: traZODone HCL 50 MG TABLET PO (21:14)
[2020-09-11] MEDS: Acetaminophen 325 MG TABLET 650 MG PO (21:19)
[2020-09-12] VITALS (10 sets, daily range): BP systolic 113–144; BP diastolic 57–81; PULSE 78–96; RESP 17–19; TEMP 36.2–37; O2SAT 96–100
[2020-09-12] MEDS: Heparin Sodium,Porcine 5,000 UNIT/ML VIAL 5000 UNIT SUBCUT ×3 (05:45→20:43)
[2020-09-12] MEDS: Acetaminophen 325 MG TABLET 650 MG PO (06:01)
--- NOTE | 2020-09-12 06:29 | PC.NURSE ---
Pt has been calm and cooperative overnight. A&O x3. Moderate tremors of hands at beginning of shift, only slight tremors at this time. Is receiving po phenobarbitol. Pt has anasarca with sunburn to arms with slight blistering in some areas. Monitor showed afib, HR 80's-120. HR 70's when asleep. He is awake now and HR in the 80's. OOB to commode with assist, voided and had normal formed BM in commode. C/o pain 3-5/10 in left thigh. received Tylenol with good effect.
[2020-09-12 06:32] LABS: MANUAL DIFF FLAG NO
[2020-09-12 06:45] LABS: Basophils Percent Auto 0.4 % (0-2); Eosinophils Absolute Auto 0.1 X10*3/uL (0.0-0.4); Eosinophils Percent Auto 2.2 % (0-4); Hemoglobin 11.2 g/dl (14.0-18.0); Imm Gran Abs Auto 0.03 X10*3/uL (0.00-0.03); Imm Gran Pct Auto 0.6 % (0.0-0.4); Lymphocytes Absolute Auto 1.2 X10*3/uL (1.2-4.9); Lymphocytes Percent Auto 22.5 % (20-40); Mean Corpuscular Hemoglobin 32.1 pg (27.0-33.0); Mean Corpuscular Volume 100.3 fL (80-98); Mean Platelet Volume 10.2 fL (9.4-12.4); Monocytes Absolute Auto 0.5 X10*3/uL (0.1-1.2); Monocytes Percent Auto 8.4 % (2-11); Neutrophils Absolute Auto 3.5 X10*3/uL (2.0-8.3); Neutrophils Percent Auto 65.9 % (45-73); Platelet Count 117 X10*3/uL (160-400); Red Blood Count 3.49 X10*6/uL (4.60-5.80); Red Cell Distribution Width 16.8 % (11.0-16.0); White Blood Count 5.4 X10*3/uL (4.8-10.8)
[2020-09-12 07:10] LABS: Glucose, Whole Blood 174 mg/dL (60-115)
[2020-09-12 07:23] LABS: Anion Gap 12 (12-20); Blood Urea Nitrogen 14 mg/dL (9-16); Calcium 8.2 mg/dL (8.4-10.2); Carbon Dioxide 28 mmol/L (22-29); Chloride 101 mmol/L (96-108); Creatinine Clr Calc Pharmacy 158.7; Estimated Glomerular Filt Rate > 60; Glucose Random 148 mg/dL (60-115); Sodium 137 mmol/L (135-145)
[2020-09-12] MEDS: Insulin Glargine,Hum.rec.anlog 100 UNIT/ML 10 ML VIAL 6 UNIT SUBCUT (07:40)
[2020-09-12] MEDS: Furosemide 20 MG/2 ML VIAL IVPUSH ×2 (07:40→17:51)
[2020-09-12] MEDS: Aspirin Enteric Coated 81 MG TABLET.DR PO (07:41)
[2020-09-12] MEDS: PHENobarbitaL 30 MG TABLET 60 MG PO ×2 (07:41→20:42)
[2020-09-12] MEDS: Insulin Lispro 100 UNIT/ML 3 ML VIAL SUBCUT ×3 (07:41→16:27)
[2020-09-12] MEDS: Metoprolol Tartrate 50 MG TABLET PO ×2 (07:42→20:42)
[2020-09-12] MEDS: Multivitamin TABLET 1 TAB PO (07:42)
[2020-09-12] MEDS: Thiamine HCL 100 MG TABLET PO (07:42)
[2020-09-12] MEDS: Gabapentin 400 MG CAPSULE PO ×3 (07:42→20:42)
[2020-09-12] MEDS: Folic Acid 1 MG TABLET PO (07:42)
[2020-09-12] MEDS: 0.9 % Sodium Chloride Flush 3 ML SYRINGE IVFLUSH ×4 (07:42→20:43)
[2020-09-12] MEDS: Omeprazole 20 MG CAPSULE.DR PO (07:42)
[2020-09-12 08:58] LABS: Magnesium 1.5 mg/dL (1.6-2.6)
[2020-09-12 11:13] LABS: Glucose, Whole Blood 180 mg/dL (60-115)
[2020-09-12] MEDS: Magnesium Sulfate/H2O 2 GM/50 ML PIGGYBACK IV (11:28)
--- NOTE | 2020-09-12 12:04 | P.CDIC_ITS ---
CDI Concurrent Query Service Date: 09/12/20 Documentation Clarification: Please clarify if you are treating a proba ble/suspected/likely or confirmed: Specifics: Acute on chronic diastolic and/or systolic CHF Chronic diastolic and/or systolic CHF Please specify if known Provider Response: Acute Systolic CHF PLEASE DO NOT DELETE/MODIFY EXISTING CONTENT Additional information is needed in order to code to the highest accuracy and appropriate Severity of Illness (SOI). Please clarify the information noted below in your progress notes and discharge summary. Risk Factors/Clinical Indicators/Treatments Acute hypoxic respiratory failure secondary to CHF exacerbation. BNP within normal but has bilateral lower extremity edema. IV Lasix, recent echo showed EF 10-15%. Monitor I&O's and daily weight. CDS: Carissa Zepeda CCS, [facility]IS Contact Number: [phone] Please Review the information above and exercise your independent professional judgment in responding to the query. If you concur, pleas document in the PROGRESS NOTES and DISCHARGE SUMMARY. If you do not agree with the query, please document in the query above. THIS QUERY IS PART OF THE PERMANENT MEDICAL RECORD
--- NOTE | 2020-09-12 14:00 | MHC.CM.PN ---
met with pt with interpertaor pt reports being indepedent had no services prior to admission he states he does have a counselor for his metoh abuse pt will assist with transportaion home and should be seen by care teamprior heidi muñiz
--- NOTE | 2020-09-12 16:10 | HO.PM.IMPN ---
Subjective Subjective Date of Service: 09/12/20 Interval History: the patient was seen and evaluated this morning Laying in bed, feels comfortable overall as chest heaviness and palpitations resolved Heart rate better controlled today Denies any fever, chills or shortness of breath No reported other overnight events. Review of Systems No fever, chills but reports dizziness and mild weakness No chest pain, feeling funny feeling in his chest with palpitation No shortness of breath or coughing No abdominal pain, nausea or vomiting No urinary symptoms No any rash or wounds Physical Exam Vital Signs: Vital Signs: Last Vital Signs Temp 97.6 F 09/12/20 15:32 Pulse 88 09/12/20 15:32 Resp 18 09/12/20 15:32 BP 118/77 09/12/20 15:32 Pulse Ox 99 09/12/20 15:32 Oxygen Flow Rate 2 09/10/20 21:05 Body Mass Index 36.0 Const: Other: Constitutional : Alert, oriented, sleepy and not interested in answering questions Neck : Normal inspection, Supple Cardiovascular : Irregular irregular, S1 S2, +1 bilateral lower extremity edema Respiratory : Decreased bilateral air entry, no crackles, no wheezes or rhonchi Gastrointestinal: soft, lax, Normal bowel sounds, Non tender Skin : Warm/Dry, No rash Neurological : Alert & oriented to place and time, No focal deficit Objective Data Current Medications Generic Name Dose Route Start Last Admin Trade Name Freq PRN Reason Stop Dose Admin Acetaminophen 650 mg 09/11/20 13:47 09/12/20 06:01 Acetaminophen 325 Mg Tablet PO 650 mg Q6H PRN Administration Pain, Mild (Pain Scale 1-3) Aspirin 81 mg 09/12/20 09:00 09/12/20 07:41 Aspirin Enteric Coated 81 Mg Tablet. PO 81 mg DAILY FRANKY Administration Atorvastatin Calcium 40 mg 09/11/20 21:00 09/11/20 21:12 Atorvastatin Calcium 40 Mg Tablet PO 40 mg BEDTIME FRANKY Administration Chlordiazepoxide HCl 50 mg 09/11/20 02:44 Chlordiazepoxide Hcl 25 Mg Capsule PO Q2H PRN VERÓNICA Briseno Folic Acid 1 mg 09/12/20 09:00 09/12/20 07:42 Folic Acid 1 Mg Tablet PO 1 mg DAILY FRANKY Administration Furosemide 20 mg 09/11/20 18:00 09/12/20 07:40 Furosemide 20 Mg/2 Ml Vial IVPUSH 20 mg BID@0900,1800 [facility] Administration Protocol Gabapentin 400 mg 09/11/20 15:00 09/12/20 15:33 Gabapentin 400 Mg Capsule PO 400 mg TID FRANKY Administration Heparin Sodium (Porcine) 5,000 unit 09/11/20 13:47 09/12/20 15:33 Heparin Sodium,Porcine 5,000 Unit/Ml Vial SUBCUT 5,000 unit Q8H FRANKY Administration Insulin Glargine 6 unit 09/11/20 13:47 09/12/20 07:40 Insulin Glargine,Hum.Rec.Anlog 100 Unit/Ml 10 Ml Vial SUBCUT 6 unit DAILY [facility] Administration Insulin Human Lispro 0 unit 09/11/20 16:30 09/12/20 11:28 Insulin Lispro 100 Unit/Ml 3 Ml Vial SUBCUT 2 unit QIDACHS [facility] Administration Protocol Medication 1 each 09/11/20 08:03 No Benzodiazepines MISCELLANE DAILY [facility] Metoprolol Tartrate 50 mg 09/11/20 13:47 09/12/20 07:42 Metoprolol Tartrate 50 Mg Tablet PO 50 mg BID [facility] Administration Protocol Multivitamins/Vitamin C 1 tab 09/12/20 09:00 09/12/20 07:42 Multivitamin Tablet PO 1 tab DAILY [facility] Administration Omeprazole 20 mg 09/11/20 13:47 09/12/20 07:42 Omeprazole 20 Mg Capsule.Dr PO 20 mg DAILY [facility] Administration Ondansetron HCl 4 mg 09/11/20 13:47 Ondansetron Hcl 4 Mg/2 Ml Vial IVPUSH Q8H PRN Nausea and Vomiting Phenobarbital 60 mg 09/11/20 21:00 09/12/20 07:41 Phenobarbital 30 Mg Tablet PO 09/13/20 09:01 60 mg BID FRANKY Administration Protocol Phenobarbital 30 mg 09/13/20 21:00 Phenobarbital 30 Mg Tablet PO 09/15/20 09:01 BID [facility] Protocol Phenobarbital 30 mg 09/16/20 09:00 Phenobarbital 30 Mg Tablet PO 09/17/20 09:01 DAILY [facility] Protocol Sodium Chloride 3 ml 09/11/20 16:00 09/12/20 15:35 0.9 % Sodium Chloride Flush 3 Ml Syringe IVFLUSH 3 ml QSHIFT [facility] Administration Thiamine HCl 100 mg 09/12/20 09:00 09/12/20 07:42 Thiamine Hcl 100 Mg Tablet PO 100 mg DAILY [facility]Y Administration Trazodone HCl 50 mg 09/11/20 21:00 09/11/20 21:14 Trazodone Hcl 50 Mg Tablet PO 50 mg BEDTIME FRANKY Administration Labs CBC & Chem 7: 09/12/20 06:01 09/12/20 06:01 Microbiology Microbiology Results: Microbiology 09/10/20 22:18 Blood - Venous Blood Culture - Preliminary No growth after 24 hours. 09/10/20 22:18 Blood - Venous Blood Culture - Preliminary No growth after 24 hours. Assessment and Plan (1) CHF exacerbation: Status: Acute (2) Alcohol withdrawal: Status: Acute (3) Alcohol dependence: Status: Acute (4) Atrial fibrillation, rapid: Status: Acute Assessment and Plan: A 59 years old male with PMH of CHF, recent COVID, cardiomyopathy with low EF, atrial fibrillation, liver cirrhosis, CAD, alcohol abuse who presents to the hospital intoxicated with complaint of dizziness and palpitation Acute hypoxic respiratory failure Secondary to CHF exacerbation Oxygen of 89 at room air in ED BNP within normal but has bilateral lower extremity swelling Recent echo from 2019 showed EF 10-15% Chest x-ray showing congestion with previous picture of recent COVID as well Has component of cirrhosis as well Continue gentle diuresis with Lasix monitor intake and output Follow BMP Atrial fibrillation with RVR Secondary to chronic alcohol abuse and cardiomyopathy Better controlled continue home medications for the time being Replacement of magnesium Patient is not on anticoagulation from before, investigate Hypomagnesemia Magnesium of 1.6 this morning to given extra 2 g of magnesium Alcohol abuse Alcohol withdrawal Continue phenobarbital protocol Continue thiamine and folic acid Type 2 diabetes SSI, Lantus diabetic diet Thrombocytopenia Secondary to liver cirrhosis continue to monitor DVT PPX Heparin
[2020-09-12 16:15] LABS: Glucose, Whole Blood 155 mg/dL (60-115)
[2020-09-12 20:36] LABS: Glucose, Whole Blood 150 mg/dL (60-115)
[2020-09-12] MEDS: traZODone HCL 50 MG TABLET PO (20:42)
[2020-09-12] MEDS: Atorvastatin Calcium 40 MG TABLET PO (20:42)
[2020-09-13] VITALS (8 sets, daily range): BP systolic 112–138; BP diastolic 50–89; PULSE 77–103; RESP 15–20; TEMP 36.6–37.1; O2SAT 97–99
[2020-09-13] MEDS: Heparin Sodium,Porcine 5,000 UNIT/ML VIAL 5000 UNIT SUBCUT ×3 (05:45→20:53)
[2020-09-13 06:29] LABS: Hematocrit 35.4 % (42-52); Hemoglobin 11.3 g/dl (14.0-18.0); Mean Corpuscular HGB Conc 31.9 g/dl (31.0-36.0); Mean Corpuscular Volume 100.3 fL (80-98); Mean Platelet Volume 10.4 fL (9.4-12.4); Red Blood Count 3.53 X10*6/uL (4.60-5.80); Red Cell Distribution Width 16.5 % (11.0-16.0); White Blood Count 4.8 X10*3/uL (4.8-10.8)
[2020-09-13 06:38] LABS: Platelet Count 90 X10*3/uL (160-400)
[2020-09-13 06:55] LABS: Anion Gap 12 (12-20); Blood Urea Nitrogen 15 mg/dL (9-16); Carbon Dioxide 28 mmol/L (22-29); Chloride 100 mmol/L (96-108); Creatinine Clr Calc Pharmacy 154.1; Estimated Glomerular Filt Rate > 60; Glucose Random 113 mg/dL (60-115); Potassium 3.9 mmol/L (3.3-5.1); Sodium 136 mmol/L (135-145)
[2020-09-13 07:29] LABS: Glucose, Whole Blood 119 mg/dL (60-115)
--- NOTE | 2020-09-13 09:25 | HO.ADDICT_ITS ---
History of Present Illness Date of Service: 09/12/2020 Chief Complaint: SOB edema palpitations Reason for Consult: Alcohol use disorder Requesting physician: Mya Laws Discussed with referring provider: No Sources of Information: patient interviewed and chart reviewed HPI Narrative: Patient is a 59 year old Khmer speaking male with alcohol use disorder, AFIB, and CHF. Consult requested due to patients AUD. Patient seen in room 478. Awake, alert, watching TV, minimal engagement. Explained reason for consult and patient nodded and continued watching TV. Continued to try and engage patient in conversation, but he was not interested. Encouraged him to request to speak with someone from our team should he change his mind. Pt agreeable Past Psychiatric History: not reviewed Medical Evaluation Reviewed: Yes Review of Systems Review of Systems patient minimally engaged Diagnostics Vital Signs (24Hr): Vital Signs - 24 hr 09/12/20 11:02 09/12/20 11:53 09/12/20 15:32 Temperature 97.2 F 97.6 F Pulse Rate 96 88 Respiratory Rate 17 18 Blood Pressure 124/76 118/77 Pulse Oximetry 100 96 99 09/12/20 19:41 09/12/20 20:42 09/12/20 23:53 Temperature 97.1 F 97.6 F Pulse Rate 78 78 83 Respiratory Rate 17 18 Blood Pressure 144/81 H 144/81 H 128/70 Pulse Oximetry 98 99 09/13/20 03:35 09/13/20 08:00 09/13/20 09:10 Temperature 98.3 F 98.3 F Pulse Rate 88 89 89 Respiratory Rate 18 20 Blood Pressure 112/50 L 131/86 131/86 Pulse Oximetry 97 99 99 Body Mass Index 36.0 Labs Results: 09/13/20 05:46 09/13/20 05:46 Labs: Laboratory Results - last 48 hr 09/11/20 09/11/20 09/11/20 07:27 08:52 14:25 WBC RBC Hgb Hct MCV MCH MCHC RDW Plt Count MPV Immature Gran % (Auto) Neut % (Auto) Lymph % (Auto) [place] % (Auto) Eos % (Auto) Baso % (Auto) Lymph # (Auto) [place] # (Auto) Eos # (Auto) Baso # (Auto) Abs Immat Gran (auto) Absolute Neuts (auto) Absolute Nucleated RBC Nucleated RBC % (auto) Sodium Potassium Chloride Carbon Dioxide Anion Gap BUN Creatinine Estim Creat Clear Calc Estimated GFR POC Glucose 203 H Random Glucose Calcium Magnesium 1.4 L* Troponin I High Sens 24.0 09/11/20 09/11/20 09/12/20 16:36 20:02 06:01 WBC 5.4 RBC 3.49 L Hgb 11.2 L Hct 35.0 L MCV 100.3 H MCH 32.1 MCHC 32.0 RDW 16.8 H Plt Count 117 L MPV 10.2 Immature Gran % (Auto) 0.6 H Neut % (Auto) 65.9 Lymph % (Auto) 22.5 [place] % (Auto) 8.4 Eos % (Auto) 2.2 Baso % (Auto) 0.4 Lymph # (Auto) 1.2 [place] # (Auto) 0.5 Eos # (Auto) 0.1 Baso # (Auto) 0.0 Abs Immat Gran (auto) 0.03 Absolute Neuts (auto) 3.5 Absolute Nucleated RBC 0.000 Nucleated RBC % (auto) 0.0 Sodium Potassium Chloride Carbon Dioxide Anion Gap BUN Creatinine Estim Creat Clear Calc Estimated GFR POC Glucose 177 H 190 H Random Glucose Calcium Magnesium Troponin I High Sens 09/12/20 09/12/20 09/12/20 06:01 07:05 11:01 WBC RBC Hgb Hct MCV MCH MCHC RDW Plt Count MPV Immature Gran % (Auto) Neut % (Auto) Lymph % (Auto) [place] % (Auto) Eos % (Auto) Baso % (Auto) Lymph # (Auto) [place] # (Auto) Eos # (Auto) Baso # (Auto) Abs Immat Gran (auto) Absolute Neuts (auto) Absolute Nucleated RBC Nucleated RBC % (auto) Sodium 137 Potassium 4.0 Chloride 101 Carbon Dioxide 28 Anion Gap 12 BUN 14 D Creatinine 0.68 Estim Creat Clear Calc 158.7 Estimated GFR > 60 POC Glucose 174 H 180 H Random Glucose 148 H D Calcium 8.2 L Magnesium 1.5 L Troponin I High Sens 09/12/20 09/12/20 09/13/20 16:10 20:33 05:46 WBC 4.8 RBC 3.53 L Hgb 11.3 L Hct 35.4 L MCV 100.3 H MCH 32.0 MCHC 31.9 RDW 16.5 H Plt Count 90 L MPV 10.4 Immature Gran % (Auto) Neut % (Auto) Lymph % (Auto) [place] % (Auto) Eos % (Auto) Baso % (Auto) Lymph # (Auto) [place] # (Auto) Eos # (Auto) Baso # (Auto) Abs Immat Gran (auto) Absolute Neuts (auto) Absolute Nucleated RBC 0.000 Nucleated RBC % (auto) 0.0 Sodium Potassium Chloride Carbon Dioxide Anion Gap BUN Creatinine Estim Creat Clear Calc Estimated GFR POC Glucose 155 H 150 H Random Glucose Calcium Magnesium Troponin I High Sens 09/13/20 09/13/20 05:46 07:25 WBC RBC Hgb Hct MCV MCH MCHC RDW Plt Count MPV Immature Gran % (Auto) Neut % (Auto) Lymph % (Auto) [place] % (Auto) Eos % (Auto) Baso % (Auto) Lymph # (Auto) [place] # (Auto) Eos # (Auto) Baso # (Auto) Abs Immat Gran (auto) Absolute Neuts (auto) Absolute Nucleated RBC Nucleated RBC % (auto) Sodium 136 Potassium 3.9 Chloride 100 Carbon Dioxide 28 Anion Gap 12 BUN 15 Creatinine 0.70 Estim Creat Clear Calc 154.1 Estimated GFR > 60 POC Glucose 119 H Random Glucose 113 Calcium 8.0 L Magnesium Troponin I High Sens Imaging Radiology Impressions: ITS Impressions Chest X-Ray 09/10/20 21:27 IMPRESSION: Stable enlargement of the cardiac silhouette. Low lung volumes. Bilateral perihilar airspace disease. Differential would include pulmonary edema and pneumonia. Chest X-Ray 09/11/20 06:20 IMPRESSION: Persistent central vascular prominence and suggestion of mild right patchy basilar opacity. Appearance is similar to 09/10/2020. Mental Status Exam Mental Status Exam Patient Appearance: Appropriate Level of Consciousness: Awake and Alert Patient Behavior: Guarded Mood Description: Flat Affect Description: Flat Speech Pattern: Clear Thought Process: Intact Thought Content: positive for Intact Judgement: Fair Medications Medications Current Medications Generic Name Dose Route Start Last Admin Trade Name Freq PRN Reason Stop Dose Admin Acetaminophen 650 mg 09/11/20 13:47 09/12/20 06:01 Acetaminophen 325 Mg Tablet PO 650 mg Q6H PRN Administration Pain, Mild (Pain Scale 1-3) Aspirin 81 mg 09/12/20 09:00 09/12/20 07:41 Aspirin Enteric Coated 81 Mg Tablet. PO 81 mg DAILY FRANKY Administration Atorvastatin Calcium 40 mg 09/11/20 21:00 09/12/20 20:42 Atorvastatin Calcium 40 Mg Tablet PO 40 mg BEDTIME FRANKY Administration Chlordiazepoxide HCl 50 mg 09/11/20 02:44 Chlordiazepoxide Hcl 25 Mg Capsule PO Q2H PRN CIWA greter than 10 Folic Acid 1 mg 09/12/20 09:00 09/12/20 07:42 Folic Acid 1 Mg Tablet PO 1 mg DAILY FRANKY Administration Furosemide 20 mg 09/11/20 18:00 09/12/20 17:51 Furosemide 20 Mg/2 Ml Vial IVPUSH 20 mg BID@0900,1800 [facility] Administration Protocol Gabapentin 400 mg 09/11/20 15:00 09/12/20 20:42 Gabapentin 400 Mg Capsule PO 400 mg TID [facility] Administration Heparin Sodium (Porcine) 5,000 unit 09/11/20 13:47 09/13/20 05:45 Heparin Sodium,Porcine 5,000 Unit/Ml Vial SUBCUT 5,000 unit Q8H [facility] Administration Insulin Glargine 6 unit 09/11/20 13:47 09/12/20 07:40 Insulin Glargine,Hum.Rec.Anlog 100 Unit/Ml 10 Ml Vial SUBCUT 6 unit DAILY [facility] Administration Insulin Human Lispro 0 unit 09/11/20 16:30 09/12/20 20:43 Insulin Lispro 100 Unit/Ml 3 Ml Vial SUBCUT Not Given QIDACHS [facility] Protocol Medication 1 each 09/11/20 08:03 No Benzodiazepines MISCELLANE DAILY [facility] Metoprolol Tartrate 50 mg 09/11/20 13:47 09/12/20 20:42 Metoprolol Tartrate 50 Mg Tablet PO 50 mg BID [facility] Administration Protocol Multivitamins/Vitamin C 1 tab 09/12/20 09:00 09/12/20 07:42 Multivitamin Tablet PO 1 tab DAILY [facility] Administration Omeprazole 20 mg 09/11/20 13:47 09/12/20 07:42 Omeprazole 20 Mg Capsule. PO 20 mg DAILY [facility] Administration Ondansetron HCl 4 mg 09/11/20 13:47 Ondansetron Hcl 4 Mg/2 Ml Vial IVPUSH Q8H PRN Nausea and Vomiting Phenobarbital 30 mg 09/13/20 21:00 Phenobarbital 30 Mg Tablet PO 09/15/20 09:01 BID [facility]ANKY Protocol Phenobarbital 30 mg 09/16/20 09:00 Phenobarbital 30 Mg Tablet PO 09/17/20 09:01 DAILY [facility] Protocol Sodium Chloride 3 ml 09/11/20 16:00 09/12/20 20:43 0.9 % Sodium Chloride Flush 3 Ml Syringe IVFLUSH 3 ml QSHIFT [facility] Administration Thiamine HCl 100 mg 09/12/20 09:00 09/12/20 07:42 Thiamine Hcl 100 Mg Tablet PO 100 mg DAILY [facility]Y Administration Trazodone HCl 50 mg 09/11/20 21:00 09/12/20 20:42 Trazodone Hcl 50 Mg Tablet PO 50 mg BEDTIME FRANKY Administration Allergies Allergies Allergy/AdvReac Type Severity Reaction Status Date / Time Penicillins [PCN] Allergy Unknown UNKNOWN Verified 09/03/20 16:05 Assessment & Plan Assessment & Plan (1) Alcohol use disorder, severe, dependence: Status: Acute Code(s): F10.20 - Alcohol dependence, uncomplicated Recommendations: * minimal responses from patient * declining any intervention or referral at this time * please re-consult if necessary Greater than 50% of the session was spent on counseling and/or coordination of care [facility] Past Medical History Medical History A-fib CAD (coronary artery disease) Cardiomyopathy CHF (congestive heart failure) Cirrhosis Depression Diabetes ETOH abuse HTN (hypertension) Social History Social History Household Members: None Housing: Other Housing Other:: rents room Do you presently have visiting nurse or other home services: No Alcohol intake: current Alcohol intake frequency: 3 or more drinks per day Alcohol type: hard liquor Smoked in Last 30 Days: No Patient Interested in Nicotine Replacement: No Patient Given Instructions on How to Stop Smoking: No Second Hand Smoke Exposure: No Use of substances other than those prescribed or required for medical reasons: No Currently Displaying Signs/Symptoms of Drug Intoxication Withdrawal: No Have you been hit, kicked, punched, or otherwise hurt by someone within the past year? If so, by whom?: No Do you feel safe in your current relationship?: No Is there a partner from a previous relationship who is making you feel unsafe now?: No Are you made to feel afraid or neglected: No Advance Directives: No Advance Directives Information Provided: Yes Do you have thoughts of harming others: None Do you have a plan to hurt others: No Plan Recently lost weight without trying: No Nutrition Risks: No Nutritional Risk service: No Current occupational status: unemployed
[2020-09-13] MEDS: Furosemide 20 MG/2 ML VIAL IVPUSH ×2 (10:28→17:18)
[2020-09-13] MEDS: Multivitamin TABLET 1 TAB PO (10:29)
[2020-09-13] MEDS: Folic Acid 1 MG TABLET PO (10:29)
[2020-09-13] MEDS: PHENobarbitaL 30 MG TABLET 60 MG PO (10:29)
[2020-09-13] MEDS: Omeprazole 20 MG CAPSULE.DR PO (10:29)
[2020-09-13] MEDS: Gabapentin 400 MG CAPSULE PO ×3 (10:30→20:53)
[2020-09-13] MEDS: Thiamine HCL 100 MG TABLET PO (10:30)
[2020-09-13] MEDS: 0.9 % Sodium Chloride Flush 3 ML SYRINGE IVFLUSH ×3 (10:30→20:53)
[2020-09-13] MEDS: Metoprolol Tartrate 50 MG TABLET PO ×2 (10:30→20:52)
[2020-09-13] MEDS: Insulin Glargine,Hum.rec.anlog 100 UNIT/ML 10 ML VIAL 6 UNIT SUBCUT (10:31)
[2020-09-13 11:24] LABS: Glucose, Whole Blood 133 mg/dL (60-115)
--- NOTE | 2020-09-13 13:06 | P.PNIM_ITS ---
Subjective Subjective Date of Service: 09/13/20 Interval History: The patient was seen and evaluated this morning Laying in bed, feels comfortable overall chest heaviness and palpitations resolved Heart rate better controlled Denies any fever, chills or shortness of breath No reported other overnight events Review of Systems No fever, chills but reports dizziness and mild weakness No chest pain, feeling funny feeling in his chest with palpitation No shortness of breath or coughing No abdominal pain, nausea or vomiting No urinary symptoms No any rash or wounds Physical Exam Vital Signs: Vital Signs: Last Vital Signs Temp 98.1 F 09/13/20 11:27 Pulse 103 H 09/13/20 11:27 Resp 20 09/13/20 11:27 BP 135/89 09/13/20 11:27 Pulse Ox 97 09/13/20 11:27 Oxygen Flow Rate 2 09/10/20 21:05 Body Mass Index 36.0 Const: Other: Constitutional : Alert, oriented, sleepy and not interested in answering questions Neck : Normal inspection, Supple Cardiovascular : Irregular irregular, S1 S2, +1 bilateral lower extremity edema Respiratory : Decreased bilateral air entry, no crackles, no wheezes or rhonchi Gastrointestinal: soft, lax, Normal bowel sounds, Non tender Skin : Warm/Dry, No rash Neurological : Alert & oriented to place and time, No focal deficit Objective Data Current Medications Generic Name Dose Route Start Last Admin Trade Name Freq PRN Reason Stop Dose Admin Acetaminophen 650 mg 09/11/20 13:47 09/12/20 06:01 Acetaminophen 325 Mg Tablet PO 650 mg Q6H PRN Administration Pain, Mild (Pain Scale 1-3) Aspirin 81 mg 09/12/20 09:00 09/13/20 10:30 Aspirin Enteric Coated 81 Mg Tablet.Dr PO Not Given DAILY [facility]ANK[facility] Atorvastatin Calcium 40 mg 09/11/20 21:00 09/12/20 20:42 Atorvastatin Calcium 40 Mg Tablet PO 40 mg BEDTIME [facility] Administration Chlordiazepoxide HCl 50 mg 09/11/20 02:44 Chlordiazepoxide Hcl 25 Mg Capsule PO Q2H PRN VERÓNICA chapman 10 Folic Acid 1 mg 09/12/20 09:00 09/13/20 10:29 Folic Acid 1 Mg Tablet PO 1 mg DAILY [facility] Administration Furosemide 20 mg 09/11/20 18:00 09/13/20 10:28 Furosemide 20 Mg/2 Ml Vial IVPUSH 20 mg BID@0900,1800 [facility] Administration Protocol Gabapentin 400 mg 09/11/20 15:00 09/13/20 10:30 Gabapentin 400 Mg Capsule PO 400 mg TID [facility] Administration Heparin Sodium (Porcine) 5,000 unit 09/11/20 13:47 09/13/20 05:45 Heparin Sodium,Porcine 5,000 Unit/Ml Vial SUBCUT 5,000 unit Q8H [facility] Administration Insulin Glargine 6 unit 09/11/20 13:47 09/13/20 10:31 Insulin Glargine,Hum.Rec.Anlog 100 Unit/Ml 10 Ml Vial SUBCUT 6 unit DAILY [facility] Administration Insulin Human Lispro 0 unit 09/11/20 16:30 09/13/20 11:44 Insulin Lispro 100 Unit/Ml 3 Ml Vial SUBCUT Not Given QIDACHS [facility] Protocol Medication 1 each 09/11/20 08:03 No Benzodiazepines MISCELLANE DAILY [facility] Metoprolol Tartrate 50 mg 09/11/20 13:47 09/13/20 10:30 Metoprolol Tartrate 50 Mg Tablet PO 50 mg BID [facility] Administration Protocol Multivitamins/Vitamin C 1 tab 09/12/20 09:00 09/13/20 10:29 Multivitamin Tablet PO 1 tab DAILY [facility] Administration Omeprazole 20 mg 09/11/20 13:47 09/13/20 10:29 Omeprazole 20 Mg Capsule.Dr PO 20 mg DAILY [facility] Administration Ondansetron HCl 4 mg 09/11/20 13:47 Ondansetron Hcl 4 Mg/2 Ml Vial IVPUSH Q8H PRN Nausea and Vomiting Phenobarbital 30 mg 09/13/20 21:00 Phenobarbital 30 Mg Tablet PO 09/15/20 09:01 BID [facility] Protocol Phenobarbital 30 mg 09/16/20 09:00 Phenobarbital 30 Mg Tablet PO 09/17/20 09:01 DAILY [facility] Protocol Sodium Chloride 3 ml 09/11/20 16:00 09/13/20 10:30 0.9 % Sodium Chloride Flush 3 Ml Syringe IVFLUSH 3 ml QSHIFT [facility] Administration Thiamine HCl 100 mg 09/12/20 09:00 09/13/20 10:30 Thiamine Hcl 100 Mg Tablet PO 100 mg DAILY [facility] Administration Trazodone HCl 50 mg 09/11/20 21:00 09/12/20 20:42 Trazodone Hcl 50 Mg Tablet PO 50 mg BEDTIME [facility] Administration Labs CBC & Chem 7: 09/13/20 05:46 09/13/20 05:46 Microbiology Microbiology Results: Microbiology 09/10/20 22:18 Blood - Venous Blood Culture - Preliminary No growth after 48 hours. 09/10/20 22:18 Blood - Venous Blood Culture - Preliminary No growth after 48 hours. Assessment and Plan (1) CHF exacerbation: Status: Acute (2) Alcohol withdrawal: Status: Acute (3) Alcohol dependence: Status: Acute (4) Atrial fibrillation, rapid: Status: Acute Assessment and Plan: A 59 years old male with PMH of CHF, recent COVID, cardiomyopathy with low EF, atrial fibrillation, liver cirrhosis, CAD, alcohol abuse who presents to the hospital intoxicated with complaint of dizziness and palpitation Acute hypoxic respiratory failure, resolved Secondary to CHF exacerbation improving, Continue to have bilateral lower extremity swelling Recent echo from 2019 showed EF 10-15% Chest x-ray showing congestion with previous picture of recent COVID as well Has component of cirrhosis as well Continue diuresis with Lasix monitor intake and output Follow BMP Atrial fibrillation with RVR Secondary to chronic alcohol abuse and cardiomyopathy Better controlled continue home medications for the time being Replacement of magnesium Patient is not on anticoagulation from before, investigate Hypomagnesemia replacement given Alcohol abuse Alcohol withdrawal Continue phenobarbital protocol Continue thiamine and folic acid Type 2 diabetes SSI, Lantus diabetic diet Thrombocytopenia Secondary to liver cirrhosis continue to monitor DVT PPX Heparin Dispo: Plan dc to SNF when bed is available
[2020-09-13 15:45] LABS: Glucose, Whole Blood 151 mg/dL (60-115)
--- NOTE | 2020-09-13 16:44 | MHC.CM.PN ---
Male 59 DX SOB Palpitations [facility] . He will travel via [employer]. CM will follow.
[2020-09-13 20:20] LABS: Glucose, Whole Blood 206 mg/dL (60-115)
[2020-09-13] MEDS: PHENobarbitaL 30 MG TABLET PO (20:52)
[2020-09-13] MEDS: Insulin Lispro 100 UNIT/ML 3 ML VIAL SUBCUT (20:53)
[2020-09-13] MEDS: traZODone HCL 50 MG TABLET PO (20:53)
[2020-09-13] MEDS: Atorvastatin Calcium 40 MG TABLET PO (20:53)
[2020-09-14 03:34] VITALS: BP 112/68; PULSE 82; RESP 18; TEMP 36.7; O2SAT 98
[2020-09-14] MEDS: Heparin Sodium,Porcine 5,000 UNIT/ML VIAL 5000 UNIT SUBCUT (06:14)
[2020-09-14 07:00] LABS: Anion Gap 14 (12-20); Blood Urea Nitrogen 15 mg/dL (9-16); Calcium 8.3 mg/dL (8.4-10.2); Carbon Dioxide 28 mmol/L (22-29); Chloride 100 mmol/L (96-108); Estimated Glomerular Filt Rate > 60; Glucose Random 145 mg/dL (60-115); Potassium 3.5 mmol/L (3.3-5.1); Sodium 138 mmol/L (135-145)
[2020-09-14 07:44] LABS: Glucose, Whole Blood 141 mg/dL (60-115)
[2020-09-14 08:00] VITALS: BP 139/78; PULSE 79; RESP 20; TEMP 36.7; O2SAT 99
[2020-09-14 08:41] VITALS: BP 139/78; PULSE 79
[2020-09-14] MEDS: Aspirin Enteric Coated 81 MG TABLET.DR PO (08:41)
[2020-09-14] MEDS: Metoprolol Tartrate 50 MG TABLET PO (08:41)
[2020-09-14] MEDS: PHENobarbitaL 30 MG TABLET PO (08:41)
[2020-09-14] MEDS: Gabapentin 400 MG CAPSULE PO (08:41)
[2020-09-14] MEDS: Thiamine HCL 100 MG TABLET PO (08:41)
[2020-09-14] MEDS: 0.9 % Sodium Chloride Flush 3 ML SYRINGE IVFLUSH (08:42)
[2020-09-14] MEDS: Multivitamin TABLET 1 TAB PO (08:42)
[2020-09-14] MEDS: Omeprazole 20 MG CAPSULE.DR PO (08:42)
[2020-09-14] MEDS: Furosemide 20 MG/2 ML VIAL IVPUSH (08:42)
[2020-09-14] MEDS: Insulin Glargine,Hum.rec.anlog 100 UNIT/ML 10 ML VIAL 6 UNIT SUBCUT (08:42)
[2020-09-14] MEDS: Folic Acid 1 MG TABLET PO (08:42)
[2020-09-14 09:49] LABS: Magnesium 1.4 mg/dL (1.6-2.6)
[2020-09-14] MEDS: Magnesium Sulfate/H2O 2 GM/50 ML PIGGYBACK IV (09:49)
--- NOTE | 2020-09-14 11:19 | PM.DS ---
DS: Providers Provider Date of Service: 09/14/20 <YAYA Gordillo - Last Filed: 09/14/20 16:54> Date of admission: 09/11/20 12:31 <YAYA Gordillo - Last Filed: 09/14/20 16:54> Primary care physician: Vikki Torrez MD <YAYA Gordillo - Last Filed: 09/14/20 16:54> Consults: 09/11/20 12:37 Consult to Care Team Routine Comment: Reason for consultation: Alcoholism for advice and eval <YAYA Gordillo Last Filed: 09/14/20 16:54> DS: Diagnosis Discharge Diagnosis (1) Alcohol use disorder, severe, dependence: Status: Acute <YAYA Gordillo Last Filed: 09/14/20 16:54> (2) CHF exacerbation: Status: Acute <YAYA Gordillo Last Filed: 09/14/20 16:54> (3) Alcohol withdrawal: Status: Acute <YAYA Gordillo - Last Filed: 09/14/20 16:54> (4) Atrial fibrillation, rapid: Status: Acute <YAYA Gordillo Last Filed: 09/14/20 16:54> DS: Medications Discharge Medications Home Medications: Home Medications Medication Instructions Recorded Confirmed Lantus Solostar U-100 Insulin 6 unit SUBCUT QAM 09/11/20 09/11/20 ammonium lactate 1 appl TOPICAL BID 09/11/20 09/11/20 aspirin 1 tab PO DAILY 09/11/20 09/11/20 atorvastatin 1 tab PO BEDTIME 09/11/20 09/11/20 gabapentin 1 cap PO TID 09/11/20 09/11/20 metformin 1 tab PO BID 09/11/20 09/11/20 metoprolol tartrate 1 tab PO BID 09/11/20 09/11/20 multivitamin 1 tab PO DAILY 09/11/20 09/11/20 omeprazole 1 cap PO DAILY 09/11/20 09/11/20 trazodone 1 tab PO BEDTIME 09/11/20 09/11/20 Previous Rx's Medication Instructions Recorded folic acid 1 mg PO DAILY 30 Days #30 tab 09/14/20 furosemide [Lasix] 40 mg PO BID 30 Days #60 tab 09/14/20 magnesium oxide 400 mg PO DAILY 30 Days #30 cap 09/14/20 thiamine HCl (vitamin B1) 100 mg PO DAILY 30 Days #30 tab 09/14/20 <YAYA Gordillo - Last Filed: 09/14/20 16:54> DS: Summary Hospital Course Hospital Course: This is a 59-year-old Occitan-speaking male with history of CHF, cardiomyopathy with EF of 10-15%, atrial fibrillation, liver cirrhosis, CAD, alcohol abuse, recent COVID-19 who presented with alcohol intoxication, dizziness, palpitations found to be in atrial fibrillation with rapid ventricular response. Atrial fibrillation with rapid ventricular response Likely secondary to medication noncompliance. He was resumed on his home medication with good control of his heart rate. He is not on anticoagulation due to daily alcohol use/frequent falls. Acute hypoxic respiratory failure secondary to acute on chronic heart failure with reduced ejection fraction. Echo from 2019 shows EF of 10-15%. Patient has not recently filled his prescription for Lasix. He was diuresed with IV Lasix with good improvement. He will be discharged home with oral Lasix. His BMP should be checked in 1 week and periodicallyafter that. He should call to schedule a follow-up appointment with his principal archaeologist. Alcohol intoxication/dependence with alcohol withdrawal. Patient was started phenobarb protocol with good effect. He will be discharged home supplementation fall. Is encouraged to stop drinking altogether. Magnesium was checked and was low, was replaced with IV magnesium. He will be discharged home with oral supplementation. Attending Attestation: Patient seen and examined independently and I was present during wei portion of E/M service. Agree with YAYA Newman's history, physical, assessment, and plan. <YAYA Gordillo - Last Filed: 09/14/20 16:54> Time Spent with Patient Time attestation: Total time spent providing and/or coordinating discharge services: <YAYA Gordillo - Last Filed: 09/14/20 16:54> Discharge coordination time: Greater than 30 minutes <YAYA Gordillo - Last Filed: 09/14/20 16:54> Quality: Stroke Does the patient have a stroke diagnosis?: No <YAYA Gordillo - Last Filed: 09/14/20 16:54> Physical Exam Vital Signs: Vital Signs: Last Vital Signs Temp 98.0 F 09/14/20 08:00 Pulse 79 09/14/20 08:41 Resp 20 09/14/20 08:00 BP 139/78 09/14/20 08:41 Pulse Ox 99 09/14/20 08:00 Oxygen Flow Rate 2 09/10/20 21:05 Body Mass Index 36.0 <YAYA Gordillo - Last Filed: 09/14/20 16:54> Const: General: alert and awake <YAYA Gordillo Last Filed: 09/14/20 16:54> Nutritional Appearance: well nourished <YAYA Gordillo - Last Filed: 09/14/20 16:54> Orientation/consciousness: patient oriented x3 <YAYA Gordillo Last Filed: 09/14/20 16:54> HENMT: Head: Yes normocephalic and Yes atraumatic <YAYA Gordillo - Last Filed: 09/14/20 16:54> Eyes: Sclerae: sclerae normal <YAYA Gordillo - Last Filed: 09/14/20 16:54> Resp: Effort & Inspection: normal respiratory effort and no respiratory distress <YAYA Gordillo - Last Filed: 09/14/20 16:54> Cardio: Rate: regular rate <YAYA Gordillo Last Filed: 09/14/20 16:54> GI: Palpation (GI): Soft to palpation and nontender <YAYA Gordillo - Last Filed: 09/14/20 16:54> Neuro: General: patient oriented x3 <YAYA Gordillo Last Filed: 09/14/20 16:54> Cranial nerves: Yes CN's II-XII intact bilaterally and Yes Bilaterally intact EOM present <YAYA Gordillo - Last Filed: 09/14/20 16:54> DS: Data Data Completed and Pending Completed studies during hospitalization [Text1]: Procedures Detoxification Services for Substance Abuse Treatment (08/27/20) <YAYA Gordillo - Last Filed: 09/14/20 16:54> Labs on day of discharge: Laboratory Results - last 24 hr 09/13/20 09/13/20 09/13/20 11:17 15:41 20:16 Sodium Potassium Chloride Carbon Dioxide Anion Gap BUN Creatinine Estim Creat Clear Calc Estimated GFR POC Glucose 133 H 151 H 206 H Random Glucose Calcium Magnesium 09/14/20 09/14/20 05:32 07:17 Sodium 138 Potassium 3.5 Chloride 100 Carbon Dioxide 28 Anion Gap 14 BUN 15 Creatinine 0.67 Estim Creat Clear Calc 161.0 Estimated GFR > 60 POC Glucose 141 H Random Glucose 145 H Calcium 8.3 L Magnesium 1.4 L* Preliminary micro results at discharge 09/10/20 22:18 Blood Culture - Preliminary Blood - Venous No growth after 48 hours. 09/10/20 22:18 Blood Culture - Preliminary Blood - Venous No growth after 48 hours. <YAYA Gordillo - Last Filed: 09/14/20 16:54> Discharge Plan Discharge Patient Disposition: Xfer SNF <YAYA Gordillo - Last Filed: 09/14/20 16:54> Discharge Diagnosis: You hypoxic respiratory failure CHF exacerbation Atrial fibrillation with rapid ventricular response Alcohol withdrawal <YAYA Gordillo - Last Filed: 09/14/20 16:54> You hypoxic respiratory failure CHF exacerbation Atrial fibrillation with rapid ventricular response Alcohol withdrawal <Trenton Harman MD - Last Filed: 09/15/20 08:06> Referrals: [facility] [Outside] - 1 Week Vikki Torrez MD [Primary Care Provider] - 1 Week <YAYA Gordillo - Last Filed: 09/14/20 16:54> Discharge Medications: New furosemide [Lasix] 40 mg tablet 40 mg PO BID 30 Days Qty: 60 RF: 0 magnesium oxide 400 mg magnesium capsule 400 mg PO DAILY 30 Days Qty: 30 RF: 0 thiamine HCl (vitamin B1) 100 mg tablet 100 mg PO DAILY 30 Days Qty: 30 RF: 0 folic acid 1 mg tablet 1 mg PO DAILY 30 Days Qty: 30 RF: 0 Continued multivitamin Tablet 1 tab PO DAILY RF: 0 atorvastatin 40 mg tablet 1 tab PO BEDTIME RF: 0 trazodone 50 mg tablet 1 tab PO BEDTIME RF: 0 gabapentin 400 mg capsule 1 cap PO TID RF: 0 aspirin 81 mg tablet,delayed release (DR/EC) 1 tab PO DAILY RF: 0 metformin 1,000 mg tablet 1 tab PO BID RF: 0 metoprolol tartrate 50 mg tablet 1 tab PO BID RF: 0 omeprazole 20 mg capsule,delayed release(DR/EC) 1 cap PO DAILY RF: 0 ammonium lactate 12 % cream 1 appl topical BID RF: 0 Lantus Solostar U-100 Insulin 100 unit/mL (3 mL) insulin pen 6 unit subcut QAM RF: 0 <YAYA Gordillo - Last Filed: 09/14/20 16:54> Discharge Orders: Discharge Order (Routine); Ordered 09/14/20 Ordered By: Aimee Vazquez <YAYA Gordillo - Last Filed: 09/14/20 16:54> Activity on Discharge: As tolerated <YAYA Gordillo - Last Filed: 09/14/20 16:54> As tolerated <Trenton Harman MD - Last Filed: 09/15/20 08:06> Stand Alone Forms: Patient Portal Discharge page <YAYA Gordillo - Last Filed: 09/14/20 16:54> Care Plan Goals: See below <YAYA Gordillo - Last Filed: 09/14/20 16:54> Health Concerns: Atrial fibrillation with rapid ventricular response alcohol dependence with withdrawal Acute on chronic heart failure <YAYA Gordillo - Last Filed: 09/14/20 16:54> Plan of Treatment: Completely abstain from alcohol use Take all medication as prescribed Call your PCP to schedule a follow-up appointment Call the principal archaeologist to schedule a follow-up appointment <YAYA Gordillo - Last Filed: 09/14/20 16:54> Assessment: See discharge summary <YAYA Gordillo - Last Filed: 09/14/20 16:54> Discharge Date/Time: 09/14/20 14:19 <YAYA Gordillo - Last Filed: 09/14/20 16:54>
[2020-09-14 11:35] LABS: Glucose, Whole Blood 199 mg/dL (60-115)
[2020-09-14 11:44] VITALS: BP 103/61; PULSE 82; RESP 20; TEMP 36.4; O2SAT 96
[2020-09-14] MEDS: Insulin Lispro 100 UNIT/ML 3 ML VIAL SUBCUT (11:53)
--- NOTE | 2020-09-14 12:05 | MHC.CM.PN ---
IMM 09/13/20 Male 59 is discharged to [facility] via BLS. He received IV Magnesium today. DC info sent to facility. BLS booked 2pm.
== END 2020-09-14 14:19 | disposition skilled nursing facility (03) | DRG 291 ==
LOC: HO.ED 09-11 07:56 → HO.IMC 09-11 13:43
PROVIDERS: Nurse Practitioner Family; Admitting Provider Student in an Organized Health Care Education/Training Program; Emergency Provider Student in an Organized Health Care Education/Training Program; PCP Family Medicine; Visit Provider Family Medicine
DX: I50.23 Acute on chronic systolic (congestive) heart failure (principal); J96.01 Acute respiratory failure with hypoxia; F10.239 Alcohol dependence with withdrawal, unspecified; I48.91 Unspecified atrial fibrillation; I25.10 Atherosclerotic heart disease of native coronary artery without angina pectoris; E11.9 Type 2 diabetes mellitus without complications; D69.6 Thrombocytopenia, unspecified; F32.9 Major depressive disorder, single episode, unspecified; Z20.822 Contact with and (suspected) exposure to COVID-19; F10.229 Alcohol dependence with intoxication, unspecified; E83.42 Hypomagnesemia; Z91.14 Patient's other noncompliance with medication regimen; Z88.0 Allergy status to penicillin; Z79.4 Long term (current) use of insulin; Z86.16 Personal history of COVID-19; Z79.82 Long term (current) use of aspirin; Z79.899 Other long term (current) drug therapy
CPT/HCPCS: 36415; 71045; 80048; 80053; 80307; 80320; 81001; 82947; 83605; 83735; 83880; 84484; 85025; 85027; 87040; 87635; 93005; 96372; 96374; 96375; 97163; 99285; J1940; J2560; J3475

== ENCOUNTER 2020-11-01 14:13 | Emergency (ER) | payer MEDICARE, MEDICAID, SELFPAY ==
[2020-11-01] VITALS (7 sets, daily range): BP systolic 110–150; BP diastolic 53–97; PULSE 85–140; RESP 15–26; TEMP 36.4–37; O2SAT 90–98; BMI 41.8
--- NOTE | ~2020-11-01 | XR_ITS ---
EXAMINATION: XR CHEST CLINICAL INFORMATION: Falls. COMPARISON: None TECHNIQUE: Frontal view of the chest was obtained. FINDINGS: The lungs are hypoexpanded but clear of acute process. Heart size and pulmonary vascularity is normal. No gross bony abnormality seen. XR/XR chest 1V IMPRESSION: Hyperexpanded lungs are clear of acute process
--- NOTE | ~2020-11-01 | CT_ITS ---
EXAMINATION: CT CERVICAL SPINE WITHOUT CONTRAST CLINICAL INFORMATION: Fall COMPARISON: Previous CT of the cervical spine august 2020 TECHNIQUE: Axial images through the cervical spine without contrast. Sagittal and coronal reconstructions on the technologist workstation were performed. This CT examination was performed using dose optimization techniques as appropriate, variously including the following: *Automated exposure control *Adjustment of mA and/or kV according to patient size (this includes techniques or standardized protocols for targeted exams where dose is matched to indication/reason for exam; i.e. extremities or head) *Use of iterative reconstruction technique DLP: 749 mGy-cm FINDINGS: Bone alignment is normal. No fracture or dislocation is seen. There is partial block fusion at the C2-C3 disc space. There is mild disc space narrowing and spondylosis at the C6-C7. Prevertebral soft tissues are normal. There is bilateral carotid calcification. The lung apices are clear. CT/CT cervical spine wo con IMPRESSION: No fracture or dislocation. Mild degenerative changes.
--- NOTE | ~2020-11-01 | CT_ITS ---
EXAMINATION: CT HEAD WITHOUT CONTRAST CLINICAL INFORMATION: Fall COMPARISON: Previous head CT most recent August 2020 TECHNIQUE: Contiguous axial imaging was performed from the skull base to vertex without intravenous administration of contrast. This CT examination was performed using dose optimization techniques as appropriate, variously including the following: *Automated exposure control *Adjustment of mA and/or kV according to patient size (this includes techniques or standardized protocols for targeted exams where dose is matched to indication/reason for exam; i.e. extremities or head) *Use of iterative reconstruction technique DLP: 806 mGy-cm FINDINGS: There is no evidence of acute intracranial hemorrhage or territorial infarction. No abnormal mass effect or midline shift is seen. Garcia to white matter differentiation is well preserved. No extra-axial fluid collections are identified. The ventricles are normal in size. There is no abnormal attenuation within the brain parenchyma. There is soft tissue swelling over the right parietal bone. The osseous structures and soft tissues are otherwise normal. No skull fracture is seen. There is some soft tissue opacification of the bilateral mastoid air cells, left greater than right. Middle ears and paranasal sinuses are clear. CT/CT head/brain wo con IMPRESSION: No acute intracranial findings.
--- NOTE | 2020-11-01 14:33 | ED.ALCOHOL ---
HPI - Alcohol General Chief Complaint: ETOH/Substance Use Stated Complaint: ETOH INTOX,FOUND ON GROUND Time Seen by Provider: 11/01/20 14:33 Source: patient, EMS and old records reviewed Mode of arrival: EMS Limitations: altered mental status (ETOH intoxication) History of Present Illness MD complaint: alcohol intoxication Last drink: Just prior to admission Chronic alcohol use: Yes Previous visits for alcohol intoxication: Yes Recent trauma: No Associated symptoms: other (afib with RVR) Treatments prior to arrival: none Related Data Home Medications Medication Instructions Recorded Confirmed Lantus Solostar U-100 Insulin 6 unit SUBCUT QAM 09/11/20 11/01/20 ammonium lactate 1 appl TOPICAL BID 09/11/20 09/11/20 aspirin 1 tab PO DAILY 09/11/20 11/01/20 atorvastatin 1 tab PO BEDTIME 09/11/20 11/01/20 gabapentin 1 cap PO TID 09/11/20 11/01/20 metformin 1 tab PO BID 09/11/20 11/01/20 metoprolol tartrate 1 tab PO BID 09/11/20 11/01/20 multivitamin 1 tab PO DAILY 09/11/20 11/01/20 omeprazole 1 cap PO DAILY 09/11/20 11/01/20 trazodone 1 tab PO BEDTIME 09/11/20 11/01/20 Previous Rx's Medication Instructions Recorded folic acid 1 mg PO DAILY 30 Days #30 tab 09/14/20 furosemide [Lasix] 40 mg PO BID 30 Days #60 tab 09/14/20 magnesium oxide 400 mg PO DAILY 30 Days #30 cap 09/14/20 thiamine HCl (vitamin B1) 100 mg PO DAILY 30 Days #30 tab 09/14/20 Allergies Allergy/AdvReac Type Severity Reaction Status Date / Time Penicillins [PCN] Allergy Unknown UNKNOWN Verified 09/03/20 16:05 Review of Systems Review of Systems: ROS unable to be obtained due to altered mental status from ETOH intoxication PMF Past Medical History Attestation statement: The following information was validated with the patient. Medical History A-fib Atrial fibrillation, rapid CAD (coronary artery disease) Cardiomyopathy CHF (congestive heart failure) Cirrhosis Depression Diabetes ETOH abuse HTN (hypertension) Social History Social History Household Members: None Housing: Other Housing Other:: rents room Do you presently have visiting nurse or other home services: No Alcohol intake: current Alcohol intake frequency: 3 or more drinks per day Alcohol type: beer, wine and hard liquor Second Hand Smoke Exposure: No Use of substances other than those prescribed or required for medical reasons: Unknown Advance Directives: No Advance Directives Information Provided: No service: No Current occupational status: unemployed Physical Exam Vital Signs: Vital Signs: Last Vital Signs Temp 98.6 F 11/01/20 15:38 Pulse 85 11/01/20 15:38 Resp 22 H 11/01/20 15:38 BP 125/69 11/01/20 15:38 Pulse Ox 97 11/01/20 15:38 Body Mass Index 41.8 Appearance: somnolent wakes to voice, ETOH odor, unkempt, Mild acute distress. Eyes: Pupils equal, round and reactive to light. ENT: Pharynx normal. Neck: Normal inspection. Neck supple. CVS: tachycardic and irregular heart rate and rhythm. Pulses normal. Respiratory: No respiratory distress. Breath sounds normal. Abdomen: Soft and nontender. Covered in feces Skin: Skin warm and dry. Normal skin color. Normal skin turgor. Extremities: No lower extremity edema. No calf ttp Neuro: Somnolent, follows commands. moves all extremities, no obvious deficit. Course Course Course Narrative: down to 90s with dilt signed out pending blood work and metabolization of ETOH MDM - Alcohol MDM Narrative Medical decision making narrative: 59 yo male well known to the ED for etoh abuse, DM, afib with RVR and cardiomyopathy, cirrhosis comes in after drinking today and found sitting outside the [employer] store - at this time will need labs, IV magnesiums, IV dilt for rate control, CT scan of head/cspine to r/o trauma, CXR, dispo per results and findings. ECG Data Attestation: I personally reviewed and interpreted this ECG as follows: ECG interpretation date: 11/01/20 ECG interpretation time: 14:47 Interpretation: Rate: 123 Rhythm: afib with RVR Marble: left Normal P waves. Normal IZABEL. Normal QRS complex. ST T wave : nonspecific, no NANDA qTC: normal prior studies: no acute ischemia The study has been interpreted contemporaneously by me. . Discharge Plan Discharge Clinical Impression: A-fib, Alcoholic intoxication Prescriptions: No Action multivitamin Tablet 1 tab PO DAILY RF: 0 atorvastatin 40 mg tablet 1 tab PO BEDTIME RF: 0 trazodone 50 mg tablet 1 tab PO BEDTIME RF: 0 gabapentin 400 mg capsule 1 cap PO TID RF: 0 aspirin 81 mg tablet,delayed release (DR/EC) 1 tab PO DAILY RF: 0 metformin 1,000 mg tablet 1 tab PO BID RF: 0 metoprolol tartrate 50 mg tablet 1 tab PO BID RF: 0 omeprazole 20 mg capsule,delayed release(DR/EC) 1 cap PO DAILY RF: 0 ammonium lactate 12 % cream 1 appl topical BID RF: 0 Lantus Solostar U-100 Insulin 100 unit/mL (3 mL) insulin pen 6 unit subcut QAM RF: 0 furosemide [Lasix] 40 mg tablet 40 mg PO BID 30 Days Qty: 60 RF: 0 magnesium oxide 400 mg magnesium capsule 400 mg PO DAILY 30 Days Qty: 30 RF: 0 thiamine HCl (vitamin B1) 100 mg tablet 100 mg PO DAILY 30 Days Qty: 30 RF: 0 folic acid 1 mg tablet 1 mg PO DAILY 30 Days Qty: 30 RF: 0
--- NOTE | 2020-11-01 14:34 | ECG_ITS ---
Test Reason : ETOH Blood Pressure : / mmHG Vent. Rate : 123 BPM Atrial Rate : 111 BPM P-R Int : 000 ms QRS Dur : 106 ms QT Int : 308 ms P-R-T Axes : 000 -77 064 degrees QTc Int : 440 ms Atrial fibrillation with rapid ventricular response Left axis deviation Pulmonary disease pattern Inferior infarct , age undetermined Abnormal ECG When compared with ECG of 10-SEP-2020 22:49, Criteria for Anterior infarct are no longer Present No significant change was found Referred By: Cat Joy Electronically Signed By:David Ernandez
--- NOTE | 2020-11-01 14:49 | HE.PHANOTE ---
Pharmacy Consult ? Medication Reconciliation Pharmacy has completed the medication reconciliation and there were no significant medication issues requiring provider attention. Audrey Cole, PharmD [phone]
--- NOTE | 2020-11-01 14:50 | PC.NURSE ---
pt from street, intoxicated. Arrives with soiled pants, unable to speak. Responds to painful stimuli.
[2020-11-01] MEDS: Magnesium Sulfate/H2O 2 GM/50 ML PIGGYBACK IV (15:23)
[2020-11-01] MEDS: dilTIAZem HCL 50 MG/10 ML VIAL 10 MG IVPUSH (15:23)
[2020-11-01 16:06] LABS: MANUAL DIFF FLAG NO
[2020-11-01 16:08] LABS: Basophils Percent Auto 0.6 % (0-2); Eosinophils Absolute Auto 0.1 X10*3/uL (0.0-0.4); Eosinophils Percent Auto 1.3 % (0-4); Hematocrit 37.9 % (42-52); Hemoglobin 12.8 g/dl (14.0-18.0); Imm Gran Abs Auto 0.03 X10*3/uL (0.00-0.03); Imm Gran Pct Auto 0.4 % (0.0-0.4); Lymphocytes Absolute Auto 1.8 X10*3/uL (1.2-4.9); Lymphocytes Percent Auto 25.6 % (20-40); Mean Corpuscular HGB Conc 33.8 g/dl (31.0-36.0); Mean Corpuscular Volume 91.8 fL (80-98); Mean Platelet Volume 10.8 fL (9.4-12.4); Monocytes Absolute Auto 0.5 X10*3/uL (0.1-1.2); Monocytes Percent Auto 7.1 % (2-11); Neutrophils Absolute Auto 4.5 X10*3/uL (2.0-8.3); Platelet Count 146 X10*3/uL (160-400); Red Blood Count 4.13 X10*6/uL (4.60-5.80); Red Cell Distribution Width 13.2 % (11.0-16.0); White Blood Count 6.9 X10*3/uL (4.8-10.8)
[2020-11-01 16:20] LABS: INTERNATIONAL NORM RATIO 1.1 (0.9-1.1); Prothrombin Time 12.5 SEC (9.9-13.0)
[2020-11-01 16:28] LABS: COVID-19 Test Negative (Negative); IDNOW Serial# 9DD0AD1C
[2020-11-01 16:29] LABS: Glucose Urine UA >=1000 MG/DL (NEG); Leukocyte Esterase Urine NEG (NEG); Nitrite Urine NEG (NEG); PH 5.5 (5.0-8.0); Specific Gravity - Urine <= 1.005 (1.005-1.025); Urine Blood 1+ (NEG); Urine Ketones NEG (NEG); Urine Protein NEG (NEG-TRACE)
[2020-11-01 16:29] LABS: Ethanol 261 mg/dL
[2020-11-01 16:30] LABS: Anion Gap 18 (12-20); Blood Urea Nitrogen 13 mg/dL (9-16); Calcium 9.5 mg/dL (8.4-10.2); Carbon Dioxide 22 mmol/L (22-29); Chloride 101 mmol/L (96-108); Creatinine Clr Calc Pharmacy 138.3; Estimated Glomerular Filt Rate > 60; Glucose Random 302 mg/dL (60-115); Sodium 137 mmol/L (135-145)
[2020-11-01 16:31] LABS: Alanine Aminotransferase 24 U/L (0-40); Alkaline Phosphatase 91 U/L (39-117); Aspartate Amino Transferase 25 U/L (5-37); Bilirubin Direct 0.2 mg/dL (0.0-0.5); Bilirubin Total 0.5 mg/dL (0.0-1.0); Lipase 12 U/L (8-78); Magnesium 1.8 mg/dL (1.6-2.6); Total Protein 7.7 g/dL (6.5-8.0)
[2020-11-01 16:32] LABS: Appearance Urine CLEAR; Color Urine YELLOW
[2020-11-01 16:34] LABS: Troponin-I High Sensitivity 20.7 ng/L (<3.5-35.0)
[2020-11-01 16:35] LABS: B Type Natriuretic Peptide 77 pg/mL (<100)
[2020-11-01 16:43] LABS: Bacteria Urine TRACE /LPF; RBC Urine 0 /HPF (0); WBC Urine 0 /HPF (0-4)
[2020-11-01 16:53] LABS: Amphetamine Screen Urine Not Detected (Not Detect); Barbiturates, Urine Not Detected (Not Detect); Benzodiazepines Screen Urine Not Detected (Not Detect); Cannabinoid Screen Urine Not Detected (Not Detect); Cocaine Screen Urine Not Detected (Not Detect); Opiate Screen Urine Not Detected (Not Detect); Phencyclidine Screen Urine Not Detected (Not Detect)
--- NOTE | 2020-11-01 20:27 | MHC.RECOVSUP ---
Recovery support o Current location: ED 10 o Identified substance use concern: Alcohol <del>-</del> <del>Overdose</del> <del>-</del> <del>Withdrawal</del> <del>-</del> <del>Seeking</del> <del>ATS</del> <del>(detox)</del> - Support ? Intervention: <del>o</del> <del>ATS</del> <del>bed</del> <del>search</del> <del>started/completed/in</del> <del>process</del> <del>o</del> <del>MAT</del> <del>started</del> <del>or</del> <del>to</del> <del>be</del> <del>started</del> o Community resources provided o Harm reduction discussion ? Plan: o Referral to [facility] <del>o</del> <del>Bed</del> <del>search</del> <del>in</del> <del>progress</del> <del>to</del> <del>o</del> <del>Follow</del> <del>up</del> <del>tomorrow</del> <del>o</del> <del>Patient</del> <del>awaiting</del> <del>crisis</del> <del>evaluation</del> <del>o</del> <del>Patient</del> <del>to</del> <del>follow</del> <del>up</del> <del>with</del> <del>[facility]</del> <del>after</del> <del>discharge</del> ? Additional information:I was able to engage and have a conversation with pt about harm reduction and also vivitrol. pt stated not having a hx of mental health but has faced homelessness in the past due to his drinking. pt seemed very interested in Vivitrol and so I provided him with a brochure and recovery resources. I was able to explain thta he can come in tomorrow morning to the [facility]
== END 2020-11-01 20:07 | disposition home or self-care (01) ==
PROVIDERS: Emergency Medicine; Emergency Provider Emergency Medicine Emergency Medical Services
DX: I48.91 Unspecified atrial fibrillation (principal); F10.129 Alcohol abuse with intoxication, unspecified; Y90.9 Presence of alcohol in blood, level not specified; I25.10 Atherosclerotic heart disease of native coronary artery without angina pectoris; Z79.899 Other long term (current) drug therapy; Z71.41 Alcohol abuse counseling and surveillance of alcoholic
CPT/HCPCS: 36415; 70450; 71045; 72125; 80048; 80076; 80307; 81001; 82077; 82550; 83690; 83735; 83880; 84484; 85025; 85610; 85730; 87635; 93005; 99285; J3475

== ENCOUNTER 2020-11-02 07:32 | Inpatient (IN) | payer MEDICARE, MEDICAID, SELFPAY ==
[2020-11-02] VITALS (15 sets, daily range): BP systolic 137–154; BP diastolic 77–107; PULSE 91–121; RESP 16–88; TEMP 36.2–37.4; O2SAT 95–98; BMI 35.6
--- NOTE | ~2020-11-02 | CT_ITS ---
EXAMINATION: CT HEAD WITHOUT CONTRAST CT CERVICAL SPINE WITHOUT CONTRAST CLINICAL INFORMATION: Found on floor. EtOH. COMPARISON: Multiple priors, most recent CT head and cervical spine dated 11/01/2020. TECHNIQUE: Contiguous axial imaging was performed from the skull base to vertex without intravenous administration of contrast. Contiguous axial CT images of the cervical spine were obtained without contrast. Sagittal and coronal reformats were provided and reviewed. This CT examination was performed using dose optimization techniques as appropriate, variously including the following: *Automated exposure control *Adjustment of mA and/or kV according to patient size (this includes techniques or standardized protocols for targeted exams where dose is matched to indication/reason for exam; i.e. extremities or head) *Use of iterative reconstruction technique DLP: 4198 mGy-cm. FINDINGS: HEAD: There is no evidence of acute intracranial hemorrhage or territorial infarction. No abnormal mass effect or midline shift is seen. Garcia to white matter differentiation is well preserved. No extra-axial fluid collections are identified. The ventricles are normal in size. There is no abnormal attenuation within the brain parenchyma. The osseous structures and soft tissues are normal. The mastoid air cells and visualized portions of the paranasal sinuses are well aerated. CERVICAL SPINE: Normal vertebral body alignment. The normal cervical lordosis is maintained. No acute fracture or subluxation. No loss of vertebral body or intervertebral disc height. Partial fusion redemonstrated at C2-C3, unchanged. Minimal degenerative disc disease redemonstrated at C6-C7. Unremarkable facet joints. No lytic or blastic osseous lesion. Unremarkable prevertebral soft tissues. No abnormal soft tissue mass or fluid collection. Thyroid within normal limits. Visualized lung apices are clear. No significant central canal or neural foraminal stenosis. CT/CT cervical spine wo con IMPRESSION: HEAD: No acute intracranial hemorrhage or mass effect. CERVICAL SPINE: No acute fracture or subluxation.
--- NOTE | 2020-11-02 08:16 | ECG_ITS ---
Test Reason : AFIB Blood Pressure : / mmHG Vent. Rate : 118 BPM Atrial Rate : 119 BPM P-R Int : 000 ms QRS Dur : 096 ms QT Int : 312 ms P-R-T Axes : 000 -78 071 degrees QTc Int : 437 ms Atrial fibrillation with rapid ventricular response Left axis deviation Inferior infarct (cited on or before 02-JUL-2016) Anterior infarct , age undetermined Abnormal ECG When compared with ECG of 01-NOV-2020 14:41, No significant change was found Referred By: Alee Pritchard Electronically Signed By:David Eranndez
[2020-11-02 08:36] LABS: Glucose, Whole Blood 315 mg/dL (60-115)
--- NOTE | 2020-11-02 08:44 | ED_ITS ---
HPI - Alcohol General Chief Complaint: ETOH/Substance Use Stated Complaint: ETOH Ankle Injury Time Seen by Provider: 11/02/20 08:06 Source: EMS Mode of arrival: EMS History of Present Illness HPI narrative: 59-year-old male with a past medical history of AFib, CAD, cardiomyopathy, CHF, cirrhosis, depression, diabetes, ETOH abuse, HTN, BIBA for ETOH intoxication found slumped over on the ground this morning covered in his urine and feces. Patient was seen and treated in our ED yesterday for similar symptoms, and discharged around 7:30 p.m. unknown trauma/fall or injury. Patient admits to drinking EtOH, otherwise continuously falling asleep on exam unable to answer questions at this time MD complaint: alcohol intoxication and alcohol dependence Related Data Home Medications Medication Instructions Recorded Confirmed Lantus Solostar U-100 Insulin 6 unit SUBCUT QAM 09/11/20 11/01/20 ammonium lactate 1 appl TOPICAL BID 09/11/20 09/11/20 aspirin 1 tab PO DAILY 09/11/20 11/01/20 atorvastatin 1 tab PO BEDTIME 09/11/20 11/01/20 gabapentin 1 cap PO TID 09/11/20 11/01/20 metformin 1 tab PO BID 09/11/20 11/01/20 metoprolol tartrate 1 tab PO BID 09/11/20 11/01/20 multivitamin 1 tab PO DAILY 09/11/20 11/01/20 omeprazole 1 cap PO DAILY 09/11/20 11/01/20 trazodone 1 tab PO BEDTIME 09/11/20 11/01/20 Previous Rx's Medication Instructions Recorded folic acid 1 mg PO DAILY 30 Days #30 tab 09/14/20 furosemide [Lasix] 40 mg PO BID 30 Days #60 tab 09/14/20 magnesium oxide 400 mg PO DAILY 30 Days #30 cap 09/14/20 thiamine HCl (vitamin B1) 100 mg PO DAILY 30 Days #30 tab 09/14/20 Allergies Allergy/AdvReac Type Severity Reaction Status Date / Time Penicillins [PCN] Allergy Unknown UNKNOWN Verified 09/03/20 16:05 Review of Systems Review of Systems: Unable to obtain ROS secondary to patient's acute alcohol intoxication Yes all other systems are reviewed and are negative PMFSH Past Medical History Attestation statement: The following information was validated with the patient. Medical History A-fib Atrial fibrillation, rapid CAD (coronary artery disease) Cardiomyopathy CHF (congestive heart failure) Cirrhosis Depression Diabetes ETOH abuse HTN (hypertension) Social History Social History Household Members: None Housing: Other Housing Other:: rents room Do you presently have visiting nurse or other home services: No Alcohol intake: current Alcohol intake frequency: 3 or more drinks per day Alcohol type: beer, wine and hard liquor Second Hand Smoke Exposure: No Advance Directives: No Advance Directives Information Provided: No service: No Current occupational status: unemployed Physical Exam Vital Signs: Vital Signs: Last Vital Signs Temp 98 F 11/02/20 07:39 Pulse 109 H 11/02/20 14:00 Resp 19 11/02/20 09:17 BP 151/80 H 11/02/20 12:23 Pulse Ox 95 11/02/20 14:00 Body Mass Index 35.6 Const: Other: Somnolent wakes to voice and tactile stimuli. ETOH odor on breath. Poor hygiene HENMT: Head: Yes normal to inspection, No Mari's sign and No raccoon eyes Ears: hearing grossly normal bilaterally General nose exam: Normal external nose present Face and sinus: Yes normal facial exam Eyes: General: appearance normal, both eyes and all related structures Pupils: Equal, round and reactive pupils present Neck: Neck: Yes normal visual inspection Resp: Effort & Inspection: normal respiratory effort and no respiratory distress Cardio: Rate: tachycardic Rhythm: abnormal rhythm GI: Inspection: Yes normal to inspection Palpation (GI): Soft to palpation, nontender, no guarding and not rigid Skin: General skin exam: turgor normal and dry skin Rashes: no rashes Wo unds: no wounds Neuro: Other: Somnolent arousable to voice, not able to follow commands at this time Cranial nerves: Yes Equal, round and reactive pupils present Extrem: General: Yes normal to inspection and Yes no pedal edema Course Course Course Narrative: -labs notable for glucose of 315 > 5 units of subQ insulin ordered. CPK 330, troponin 26.3, yesterday 20.7, chronically elevated this is at his baseline -ethanol 336 -1205--repeat POC 268. On re-evaluation patient heart rate bouncing between low 100s-120, no longer have IV access which we're working on, additional 20mg IV diltiazem ordered as BPs are stable. Patient now slightly tremulous and diaphoretic 2mg IV Ativan ordered, still very intoxicated, alert to voice CT head/brain wo con IMPRESSION: HEAD: No acute intracranial hemorrhage or mass effect. CERVICAL SPINE: No acute fracture or subluxation. -1442--patient is still somnolent on exam, arousable to voice, persistently in AFib with RVR. Will initiate diltiazem drip, phenobarb protocol and admit, hospitalist contacted MDM - Alcohol MDM Narrative Medical decision making narrative: 59-year-old male with a past medical history of AFib, CAD, cardiomyopathy, CHF, cirrhosis, depression, diabetes, ETOH abuse, HTN, BIBA for ETOH intoxication found slumped over on the ground this morning covered in his urine and feces. On exam patient is hypertensive, tachycardic in AFib with RVR, no signs of trauma, somnolent alert to voice/tactile stimuli, no evidence of obvious trauma. Lab/imaging reviewed from yesterday. Plan: Repeat labs, IV diltiazem, head/C-spine CT to rule out trauma, observe and reassess for clinical sobriety Medical Records Attestation: I reviewed the patient's medical records. Lab Data Attestation: I reviewed the patient's lab results. Result diagrams: 11/02/20 09:14 11/02/20 09:14 Labs: Lab Results 11/02/20 11/02/20 11/02/20 Range/Units 08:32 09:14 09:14 WBC 7.3 (4.8-10.8) X10*3/uL RBC 4.49 L (4.60-5.80) X10*6/uL Hgb 14.3 (14.0-18.0) g/dl Hct 42.1 (42-52) % MCV 93.8 (80-98) fL MCH 31.8 (27.0-33.0) pg MCHC 34.0 (31.0-36.0) g/dl RDW 13.3 (11.0-16.0) % Plt Count 159 L (160-400) X10*3/uL MPV 10.6 (9.4-12.4) fL Immature Gran % (Auto) 0.6 H (0.0-0.4) % Neut % (Auto) 62.5 (45-73) % Lymph % (Auto) 27.1 (20-40) % Riley % (Auto) 7.6 (2-11) % Eos % (Auto) 1.5 (0-4) % Baso % (Auto) 0.7 (0-2) % Lymph # (Auto) 2.0 (1.2-4.9) X10*3/uL Riley # (Auto) 0.6 (0.1-1.2) X10*3/uL Eos # (Auto) 0.1 (0.0-0.4) X10*3/uL Baso # (Auto) 0.1 (0.0-0.2) X10*3/uL Abs Immat Gran (auto) 0.04 H (0.00-0.03) X10*3/uL Absolute Neuts (auto) 4.5 (2.0-8.3) X10*3/uL Absolute Nucleated RBC 0.000 (0.0-0.012) X10*3/uL Nucleated RBC % (auto) 0.0 (0.0-0.2) /100WBC Sodium 139 (135-145) mmol/L Potassium 4.6 (3.3-5.1) mmol/L Chloride 102 (96-108) mmol/L Carbon Dioxide 24 (22-29) mmol/L Anion Gap 18 (12-20) BUN 10 (9-16) mg/dL Creatinine 0.83 (0.5-1.4) mg/dL Estim Creat Clear Calc 125.6 Estimated GFR > 60 POC Glucose 315 H (60-115) mg/dL Random Glucose 315 H (60-115) mg/dL Calcium 10.0 (8.4-10.2) mg/dL Magnesium 1.8 (1.6-2.6) mg/dL Total Bilirubin 0.4 (0.0-1.0) mg/dL Direct Bilirubin 0.2 (0.0-0.5) mg/dL AST 32 (5-37) U/L ALT 28 (0-40) U/L Alkaline Phosphatase 102 (39-117) U/L Total Creatine Kinase 330 H D (38-174) U/L Troponin I High Sens (<3.5-35.0) ng/L Total Protein 8.7 H (6.5-8.0) g/dL Albumin 4.4 (3.5-5.0) g/dL Lipase (8-78) U/L Ethyl Alcohol mg/dL 11/02/20 11/02/20 11/02/20 Range/Units 09:14 09:14 09:14 WBC (4.8-10.8) X10*3/uL RBC (4.60-5.80) X10*6/uL Hgb (14.0-18.0) g/dl Hct (42-52) % MCV (80-98) fL MCH (27.0-33.0) pg MCHC (31.0-36.0) g/dl RDW (11.0-16.0) % Plt Count (160-400) X10*3/uL MPV (9.4-12.4) fL Immature Gran % (Auto) (0.0-0.4) % Neut % (Auto) (45-73) % Lymph % (Auto) (20-40) % Riley % (Auto) (2-11) % Eos % (Auto) (0-4) % Baso % (Auto) (0-2) % Lymph # (Auto) (1.2-4.9) X10*3/uL Riley # (Auto) (0.1-1.2) X10*3/uL Eos # (Auto) (0.0-0.4) X10*3/uL Baso # (Auto) (0.0-0.2) X10*3/uL Abs Immat Gran (auto) (0.00-0.03) X10*3/uL Absolute Neuts (auto) (2.0-8.3) X10*3/uL Absolute Nucleated RBC (0.0-0.012) X10*3/uL Nucleated RBC % (auto) (0.0-0.2) /100WBC Sodium (135-145) mmol/L Potassium (3.3-5.1) mmol/L Chloride (96-108) mmol/L Carbon Dioxide (22-29) mmol/L Anion Gap (12-20) BUN (9-16) mg/dL Creatinine (0.5-1.4) mg/dL Estim Creat Clear Calc Estimated GFR POC Glucose (60-115) mg/dL Random Glucose (60-115) mg/dL Calcium (8.4-10.2) mg/dL Magnesium (1.6-2.6) mg/dL Total Bilirubin (0.0-1.0) mg/dL Direct Bilirubin (0.0-0.5) mg/dL AST (5-37) U/L ALT (0-40) U/L Alkaline Phosphatase (39-117) U/L Total Creatine Kinase (38-174) U/L Troponin I High Sens 26.3 (<3.5-35.0) ng/L Total Protein (6.5-8.0) g/dL Albumin (3.5-5.0) g/dL Lipase 13 (8-78) U/L Ethyl Alcohol 336 H* mg/dL 11/02/20 Range/Units 11:06 WBC (4.8-10.8) X10*3/uL RBC (4.60-5.80) X10*6/uL Hgb (14.0-18.0) g/dl Hct (42-52) % MCV (80-98) fL MCH (27.0-33.0) pg MCHC (31.0-36.0) g/dl RDW (11.0-16.0) % Plt Count (160-400) X10*3/uL MPV (9.4-12.4) fL Immature Gran % (Auto) (0.0-0.4) % Neut % (Auto) (45-73) % Lymph % (Auto) (20-40) % Riley % (Auto) (2-11) % Eos % (Auto) (0-4) % Baso % (Auto) (0-2) % Lymph # (Auto) (1.2-4.9) X10*3/uL Riley # (Auto) (0.1-1.2) X10*3/uL Eos # (Auto) (0.0-0.4) X10*3/uL Baso # (Auto) (0.0-0.2) X10*3/uL Abs Immat Gran (auto) (0.00-0.03) X10*3/uL Absolute Neuts (auto) (2.0-8.3) X10*3/uL Absolute Nucleated RBC (0.0-0.012) X10*3/uL Nucleated RBC % (auto) (0.0-0.2) /100WBC Sodium (135-145) mmol/L Potassium (3.3-5.1) mmol/L Chloride (96-108) mmol/L Carbon Dioxide (22-29) mmol/L Anion Gap (12-20) BUN (9-16) mg/dL Creatinine (0.5-1.4) mg/dL Estim Creat Clear Calc Estimated GFR POC Glucose 268 H (60-115) mg/dL Random Glucose (60-115) mg/dL Calcium (8.4-10.2) mg/dL Magnesium (1.6-2.6) mg/dL Total Bilirubin (0.0-1.0) mg/dL Direct Bilirubin (0.0-0.5) mg/dL AST (5-37) U/L ALT (0-40) U/L Alkaline Phosphatase (39-117) U/L Total Creatine Kinase (38-174) U/L Troponin I High Sens (<3.5-35.0) ng/L Total Protein (6.5-8.0) g/dL Albumin (3.5-5.0) g/dL Lipase (8-78) U/L Ethyl Alcohol mg/dL Discharge Plan Discharge Prescriptions: No Action multivitamin Tablet 1 tab PO DAILY RF: 0 atorvastatin 40 mg tablet 1 tab PO BEDTIME RF: 0 trazodone 50 mg tablet 1 tab PO BEDTIME RF: 0 gabapentin 400 mg capsule 1 cap PO TID RF: 0 aspirin 81 mg tablet,delayed release (DR/EC) 1 tab PO DAILY RF: 0 metformin 1,000 mg tablet 1 tab PO BID RF: 0 metoprolol tartrate 50 mg tablet 1 tab PO BID RF: 0 omeprazole 20 mg capsule,delayed release(DR/EC) 1 cap PO DAILY RF: 0 ammonium lactate 12 % cream 1 appl topical BID RF: 0 Lantus Solostar U-100 Insulin 100 unit/mL (3 mL) insulin pen 6 unit subcut QAM RF: 0 furosemide [Lasix] 40 mg tablet 40 mg PO BID 30 Days Qty: 60 RF: 0 magnesium oxide 400 mg magnesium capsule 400 mg PO DAILY 30 Days Qty: 30 RF: 0 thiamine HCl (vitamin B1) 100 mg tablet 100 mg PO DAILY 30 Days Qty: 30 RF: 0 folic acid 1 mg tablet 1 mg PO DAILY 30 Days Qty: 30 RF: 0
--- NOTE | 2020-11-02 08:53 | PC.NURSE ---
unable to get iv access asked Alli MARIA if she could try
[2020-11-02 09:19] LABS: MANUAL DIFF FLAG NO
--- NOTE | 2020-11-02 09:19 | MHC.MBSS ---
pt sleeping, arousable to voice and touch. Attempting to get access for IV meds.
[2020-11-02 09:27] LABS: Basophils Absolute Auto 0.1 X10*3/uL (0.0-0.2); Basophils Percent Auto 0.7 % (0-2); Eosinophils Absolute Auto 0.1 X10*3/uL (0.0-0.4); Eosinophils Percent Auto 1.5 % (0-4); Hematocrit 42.1 % (42-52); Hemoglobin 14.3 g/dl (14.0-18.0); Imm Gran Abs Auto 0.04 X10*3/uL (0.00-0.03); Imm Gran Pct Auto 0.6 % (0.0-0.4); Lymphocytes Percent Auto 27.1 % (20-40); Mean Corpuscular Hemoglobin 31.8 pg (27.0-33.0); Mean Corpuscular Volume 93.8 fL (80-98); Mean Platelet Volume 10.6 fL (9.4-12.4); Monocytes Absolute Auto 0.6 X10*3/uL (0.1-1.2); Monocytes Percent Auto 7.6 % (2-11); Neutrophils Absolute Auto 4.5 X10*3/uL (2.0-8.3); Neutrophils Percent Auto 62.5 % (45-73); Platelet Count 159 X10*3/uL (160-400); Red Blood Count 4.49 X10*6/uL (4.60-5.80); Red Cell Distribution Width 13.3 % (11.0-16.0); White Blood Count 7.3 X10*3/uL (4.8-10.8)
[2020-11-02 09:37] LABS: Ethanol 336 mg/dL
[2020-11-02] MEDS: dilTIAZem HCL 50 MG/10 ML VIAL 10 MG IVPUSH (09:40)
[2020-11-02] MEDS: Thiamine HCL 200 MG/2 ML VIAL 100 MG IVPUSH (09:40)
[2020-11-02] MEDS: 0.9 % Sodium Chloride 1,000 ML 999 ML IVCONT (09:40)
[2020-11-02 09:41] LABS: Lipase 13 U/L (8-78)
[2020-11-02 09:42] LABS: Alanine Aminotransferase 28 U/L (0-40); Albumin Level 4.4 g/dL (3.5-5.0); Alkaline Phosphatase 102 U/L (39-117); Anion Gap 18 (12-20); Aspartate Amino Transferase 32 U/L (5-37); Bilirubin Direct 0.2 mg/dL (0.0-0.5); Bilirubin Total 0.4 mg/dL (0.0-1.0); Blood Urea Nitrogen 10 mg/dL (9-16); Carbon Dioxide 24 mmol/L (22-29); Chloride 102 mmol/L (96-108); Creatinine Clr Calc Pharmacy 125.6; Estimated Glomerular Filt Rate > 60; Glucose Random 315 mg/dL (60-115); Magnesium 1.8 mg/dL (1.6-2.6); Potassium 4.6 mmol/L (3.3-5.1); Sodium 139 mmol/L (135-145); Total Protein 8.7 g/dL (6.5-8.0)
[2020-11-02 09:46] LABS: Troponin-I High Sensitivity 26.3 ng/L (<3.5-35.0)
--- NOTE | 2020-11-02 10:28 | PC.NURSE ---
PT IS DIFFICULT TO OBTAIN IV ACCESS THIS RN WAS ABLE TO OBTAIN ACCESS IN RIGHT HAD WHICH HAS JUST INFILTRATED, PROVIDER IS AWARE AND STATES WE DO NOT NEED TO ATTEMPT AGAIN PATIENT GOT DILTIAZEM
[2020-11-02] MEDS: Insulin Regular, Human 100 UNIT/ML 3 ML VIAL SUBCUT (10:34)
[2020-11-02 11:09] LABS: Glucose, Whole Blood 268 mg/dL (60-115)
[2020-11-02] MEDS: LORazepam 2 MG/ML VIAL IVPUSH (12:23)
[2020-11-02] MEDS: dilTIAZem HCL 50 MG/10 ML VIAL 20 MG IVPUSH (12:23)
--- NOTE | 2020-11-02 14:25 | ECG_ITS ---
Test Reason : REPEAT Blood Pressure : / mmHG Vent. Rate : 111 BPM Atrial Rate : 136 BPM P-R Int : 000 ms QRS Dur : 090 ms QT Int : 364 ms P-R-T Axes : 000 -70 087 degrees QTc Int : 495 ms Atrial fibrillation with rapid ventricular response Left axis deviation Inferior infarct (cited on or before 02-JUL-2016) Possible Anterior infarct (cited on or before 02-JUL-2016) Abnormal ECG When compared with ECG of 02-NOV-2020 08:24, No significant change was found Referred By: Alee Pritchard Electronically Signed By:David Ernandez
[2020-11-02] MEDS: PHENobarbitaL sodium 130 MG/ML VIAL 300 MG IM (15:55)
[2020-11-02 15:57] LABS: Glucose, Whole Blood 194 mg/dL (60-115)
[2020-11-02] MEDS: dilTIAZem HCL 125 MG in 0.9 % Sodium Chloride 100 ML 10 MG IVCONT (16:08)
--- NOTE | 2020-11-02 16:08 | P.HPHOSP_ITS ---
History of Present Illness Date of Service: 11/02/20 Chief Complaint: Palpitation \ A 59 years old male with PMH of CHF, recent COVID, cardiomyopathy with low EF, atrial fibrillation, liver cirrhosis, CAD, alcohol abuse who presents to the hospital intoxicated with complaint of dizziness and palpitation. Patient is English speaker mainly. The patient reports he drinks on daily basis mainly beers. His alcohol level of above 330 at time of presentation. He reports feeling funny feeling in his chest and his heart is acting irregular. He denies any chest pain, fever, chills, shortness of breath or cough. In the emergency was noted to be in atrial fibrillation with RVR with heart rate in around 120-140s. Received IV Cardizem but did not respond much so Cardizem drip was started. Admitted for further evaluation and treatment. Review of Systems Review of Systems: No fever, chills but reporting some dizziness and feeling weaker No chest pain, but reporting palpitation No shortness of breath or coughing No abdominal pain, nausea or vomiting No urinary symptoms No any rash or wounds [facility] Medical History A-fib Atrial fibrillation, rapid CAD (coronary artery disease) Cardiomyopathy CHF (congestive heart failure) Cirrhosis Depression Diabetes ETOH abuse HTN (hypertension) Social History Household Members: None Housing: Other Housing Other:: rents room Do you presently have visiting nurse or other home services: No Alcohol intake: current Alcohol intake frequency: 3 or more drinks per day Alcohol type: beer, wine and hard liquor Second Hand Smoke Exposure: No Advance Directives: No Advance Directives Information Provided: No service: No Current occupational status: unemployed Meds Allergies Allergy/AdvReac Type Severity Reaction Status Date / Time Penicillins [PCN] Allergy Unknown UNKNOWN Verified 09/03/20 16:05 Active Medications: Current Medications Generic Name Dose Route Start Last Admin Trade Name Freq PRN Reason Stop Dose Admin Diltiazem HCl 125 mg/ Sodium 125 mls @ 0 mls/hr 11/02/20 14:45 Chloride IVCONT .Q0M FRANKY Protocol Per Protocol Medication 1 each 11/03/20 09:00 No Benzodiazepines MISCELLANE DAILY [facility] Phenobarbital 60 mg 11/03/20 09:00 Phenobarbital 30 Mg Tablet PO 11/04/20 21:01 BID [facility] Phenobarbital 30 mg 11/05/20 09:00 Phenobarbital 30 Mg Tablet PO 11/06/20 21:01 BID [facility] Phenobarbital 30 mg 11/07/20 09:00 Phenobarbital 30 Mg Tablet PO 11/08/20 09:01 DAILY [facility] Phenobarbital Sodium 225 mg 11/02/20 19:00 Phenobarbital Sodium 130 Mg/Ml Vial IM 11/02/20 22:01 1900,[id number] [facility] Home Medications Medication Instructions Recorded Confirmed Last Taken Type Lantus Solostar U-100 Insulin 6 unit SUBCUT QAM 09/11/20 11/01/20 Unknown History ammonium lactate 1 appl TOPICAL BID 09/11/20 09/11/20 Unknown History aspirin 1 tab PO DAILY 09/11/20 11/01/20 Unknown History atorvastatin 1 tab PO BEDTIME 09/11/20 11/01/20 Unknown History gabapentin 1 cap PO TID 09/11/20 11/01/20 Unknown History metformin 1 tab PO BID 09/11/20 11/01/20 Unknown History metoprolol tartrate 1 tab PO BID 09/11/20 11/01/20 Unknown History multivitamin 1 tab PO DAILY 09/11/20 11/01/20 Unknown History omeprazole 1 cap PO DAILY 09/11/20 11/01/20 Unknown History trazodone 1 tab PO BEDTIME 09/11/20 11/01/20 Unknown History Physical Exam Vital Signs and Narrative: Vital Signs: Last Vital Signs Temp 97.9 F 11/02/20 15:58 Pulse 109 H 11/02/20 15:58 Resp 18 11/02/20 15:58 BP 143/87 H 11/02/20 15:58 Pulse Ox 98 11/02/20 15:58 Body Mass Index 35.6 Const: Other: Constitutional : Alert, oriented, not in distress Neck : Normal inspection, Supple Cardiovascular : Irregularly irregular, S1 S2, trace bilateral lower extremity edema Respiratory : Good bilateral air entry decreased mainly at the bases, no crackles, wheezes or rhonchi Gastrointestinal: soft, lax, Normal bowel sounds, Non tender Skin : Warm/Dry, No rash Neurological : Alert & oriented x3, No focal deficit Results Labs CBC and Chem 7: 11/02/20 09:14 11/02/20 09:14 Labs: Laboratory Results - last 24 hr 11/02/20 11/02/20 11/02/20 08:32 09:14 09:14 MCV 93.8 MCH 31.8 MCHC 34.0 RDW 13.3 Plt Count 159 L MPV 10.6 Immature Gran % (Auto) 0.6 H Neut % (Auto) 62.5 Lymph % (Auto) 27.1 [place] % (Auto) 7.6 Eos % (Auto) 1.5 Baso % (Auto) 0.7 Lymph # (Auto) 2.0 [place] # (Auto) 0.6 Eos # (Auto) 0.1 Baso # (Auto) 0.1 Abs Immat Gran (auto) 0.04 H Absolute Neuts (auto) 4.5 Absolute Nucleated RBC 0.000 Nucleated RBC % (auto) 0.0 Anion Gap 18 Estim Creat Clear Calc 125.6 Estimated GFR > 60 POC Glucose 315 H Random Glucose 315 H Calcium 10.0 Magnesium 1.8 Total Bilirubin 0.4 Direct Bilirubin 0.2 AST 32 ALT 28 Alkaline Phosphatase 102 Total Creatine Kinase 330 H D Troponin I High Sens Total Protein 8.7 H Albumin 4.4 Lipase Ethyl Alcohol 11/02/20 11/02/20 11/02/20 09:14 09:14 09:14 MCV MCH MCHC RDW Plt Count MPV Immature Gran % (Auto) Neut % (Auto) Lymph % (Auto) [place] % (Auto) Eos % (Auto) Baso % (Auto) Lymph # (Auto) [place] # (Auto) Eos # (Auto) Baso # (Auto) Abs Immat Gran (auto) Absolute Neuts (auto) Absolute Nucleated RBC Nucleated RBC % (auto) Anion Gap Estim Creat Clear Calc Estimated GFR POC Glucose Random Glucose Calcium Magnesium Total Bilirubin Direct Bilirubin AST ALT Alkaline Phosphatase Total Creatine Kinase Troponin I High Sens 26.3 Total Protein Albumin Lipase 13 Ethyl Alcohol 336 H* 11/02/20 11/02/20 11:06 15:52 MCV MCH MCHC RDW Plt Count MPV Immature Gran % (Auto) Neut % (Auto) Lymph % (Auto) [place] % (Auto) Eos % (Auto) Baso % (Auto) Lymph # (Auto) [place] # (Auto) Eos # (Auto) Baso # (Auto) Abs Immat Gran (auto) Absolute Neuts (auto) Absolute Nucleated RBC Nucleated RBC % (auto) Anion Gap Estim Creat Clear Calc Estimated GFR POC Glucose 268 H 194 H Random Glucose Calcium Magnesium Total Bilirubin Direct Bilirubin AST ALT Alkaline Phosphatase Total Creatine Kinase Troponin I High Sens Total Protein Albumin Lipase Ethyl Alcohol Imaging Radiologist's Impressions: Impressions Cervical Spine CT 11/02/20 08:16 IMPRESSION: HEAD: No acute intracranial hemorrhage or mass effect. CERVICAL SPINE: No acute fracture or subluxation. Head CT 11/02/20 08:16 IMPRESSION: HEAD: No acute intracranial hemorrhage or mass effect. CERVICAL SPINE: No acute fracture or subluxation. Assessment and Plan (1) Alcohol use disorder, severe, dependence: Status: Acute (2) Alcohol withdrawal: Status: Acute (3) Atrial fibrillation with rapid ventricular response: Status: Acute A 59 years old male with PMH of CHF, recent COVID, cardiomyopathy with low EF, atrial fibrillation, liver cirrhosis, CAD, alcohol abuse who presents to the hospital intoxicated with complaint of dizziness and palpitation found to be on AFib RVR. Atrial fibrillation with RVR Secondary to chronic alcohol abuse and cardiomyopathy Did not respond to IV boluses Started on IV Cardizem drip Replacement of magnesium, keep above 2 Patient not on anticoagulation for chronic alcoholism and falls per Cardiology note Cardiomyopathy continue home medications for the time being Alcohol abuse Alcohol withdrawal Start phenobarbital protocol To add thiamine and folic acid Type 2 diabetes SSI, Lantus diabetic diet Thrombocytopenia Secondary to liver cirrhosis continue to monitor DVT PPX Heparin Quality Stroke Does the patient have a stroke diagnosis?: No VTE Prior VTE?: No VTE Risk Level:: Medical - moderate - high VTE Device Contraindication: Treatment Not Indicated VTE Drug Contraindication: N/A - Med Ordered
--- NOTE | 2020-11-02 16:09 | PC.NURSE ---
Pt sleeping but arousable to voice. a FIB IN 1teens consisitently since this rn resumed care around 1529. No tremors. no diaphoresis. answers questions appropriatly. unlabored resp. has just been seen by hospitalist. awaits bed assignment.
--- NOTE | 2020-11-02 17:15 | MHC.CM.PN ---
CM attempted to meet with pt with medical lab tech instructor, Maori speaking only. Pt has rambling and at times, unintelligible speech, even with screen printing stencil preparer. Pt having difficulty answering questions, but continues to tell Cm he is homeless. Pt has a cane. States PCP is at [facility], after several times asking questions. Pt has no contact listed. After multiple questions,pt mentioned a brother, Carlitos Lilly. Unable to provide contact information. Unable to review HCP or IMM at this time secondary to pt level of intoxication. CM will need to interview patient again and obtain IMM when sober. Pt to be admitted and awaiting bed assignment. CM to follow for d/c needs.
[2020-11-02] MEDS: Magnesium Sulfate/H2O 2 GM/50 ML PIGGYBACK IV (17:29)
[2020-11-02] MEDS: Insulin Lispro 100 UNIT/ML 3 ML VIAL SUBCUT ×2 (17:30→21:42)
[2020-11-02] MEDS: Heparin Sodium,Porcine 5,000 UNIT/ML VIAL 5000 UNIT SUBCUT (17:30)
--- NOTE | 2020-11-02 17:33 | PC.NURSE ---
pt remains alert, in a fib 100-110. skin pwd. drowsy but conversing.
--- NOTE | 2020-11-02 17:40 | PC.NURSE ---
C called. Joana MARIA unable to take report. Will call back.
--- NOTE | 2020-11-02 18:26 | PC.NURSE ---
Rn to Rn rachel Bernard on IMC.
[2020-11-02 21:00] LABS: Glucose, Whole Blood 149 mg/dL (60-115)
[2020-11-02] MEDS: PHENobarbitaL sodium 130 MG/ML VIAL 225 MG IM (21:41)
[2020-11-02] MEDS: Acetaminophen 325 MG TABLET 650 MG PO (23:39)
[2020-11-02] MEDS: 0.9 % Sodium Chloride Flush 3 ML SYRINGE IVFLUSH (23:40)
[2020-11-03] VITALS (9 sets, daily range): BP systolic 140–176; BP diastolic 79–98; PULSE 71–135; RESP 18–20; TEMP 36–37.9; O2SAT 92–96
[2020-11-03] MEDS: Heparin Sodium,Porcine 5,000 UNIT/ML VIAL 5000 UNIT SUBCUT ×3 (00:54→16:43)
[2020-11-03] MEDS: PHENobarbitaL sodium 130 MG/ML VIAL 225 MG IM (00:54)
[2020-11-03] MEDS: dilTIAZem HCL 125 MG in 0.9 % Sodium Chloride 100 ML 10 MG IVCONT (04:43)
[2020-11-03 06:44] LABS: Hemoglobin 12.5 g/dl (14.0-18.0)
[2020-11-03 06:46] LABS: Hematocrit 36.3 % (42-52); Mean Corpuscular HGB Conc 34.4 g/dl (31.0-36.0); Mean Corpuscular Hemoglobin 32.4 pg (27.0-33.0); Mean Platelet Volume 11.4 fL (9.4-12.4); Platelet Count 116 X10*3/uL (160-400); Red Blood Count 3.86 X10*6/uL (4.60-5.80); Red Cell Distribution Width 13.3 % (11.0-16.0); White Blood Count 9.7 X10*3/uL (4.8-10.8)
[2020-11-03 07:16] LABS: Anion Gap 18 (12-20); Blood Urea Nitrogen 11 mg/dL (9-16); Carbon Dioxide 22 mmol/L (22-29); Chloride 101 mmol/L (96-108); Creatinine Clr Calc Pharmacy 141.1; Estimated Glomerular Filt Rate > 60; Glucose Random 231 mg/dL (60-115); Potassium 4.2 mmol/L (3.3-5.1); Sodium 137 mmol/L (135-145)
[2020-11-03 07:48] LABS: Glucose, Whole Blood 282 mg/dL (60-115)
[2020-11-03] MEDS: Acetaminophen 325 MG TABLET 650 MG PO (07:55)
[2020-11-03] MEDS: 0.9 % Sodium Chloride Flush 3 ML SYRINGE IVFLUSH (07:55)
[2020-11-03] MEDS: Insulin Lispro 100 UNIT/ML 3 ML VIAL SUBCUT ×4 (07:56→20:20)
[2020-11-03] MEDS: PHENobarbitaL 30 MG TABLET 60 MG PO ×2 (08:00→20:20)
[2020-11-03] MEDS: Folic Acid 1 MG TABLET PO (08:00)
[2020-11-03] MEDS: Thiamine HCL 100 MG TABLET PO (08:00)
[2020-11-03] MEDS: Aspirin Enteric Coated 81 MG TABLET.DR PO (08:00)
[2020-11-03 09:08] LABS: Magnesium 1.6 mg/dL (1.6-2.6)
--- NOTE | 2020-11-03 09:17 | MHC.CM.PN ---
CM met with Patient at bedside, with [place] translation, and addressed IMM with him, providing him with the original and placing a copy on the chart. Patient is homeless and plans to stay with his Brother at time of dc. Patient has ETOH and may benefit from a Care Team Consult. CM has initiated and will follow for dc planning. PCP is Dr. Vikki Torrez.
[2020-11-03] MEDS: Metoprolol Tartrate 50 MG TABLET PO ×2 (09:45→20:20)
--- NOTE | 2020-11-03 12:56 | P.CDIC_ITS ---
CDI Concurrent Query Service Date: 11/03/20 Documentation Clarification: Please clarify if you are treating a proba ble/suspected/likely or confirmed: Please specify the type of Atrial Fibrillation (Paroxysmal, Persistent, Permanent) Other, please specify if known Provider Response: Other Other Diagnosis: PErminent Atrial fibrillation PLEASE DO NOT DELETE/MODIFY EXISTING CONTENT Additional information is needed in order to code to the highest accuracy and appropriate Severity of Illness (SOI). Please clarify the information noted below in your progress notes and discharge summary. Risk Factors/Clinical Indicators/Treatments admit with dizziness, intoxication Per H&P: Atrial Fibrillation with RVR, Alcohol abuse, withdrawal CDS: Camila Hector RN Contact Number: [phone] Please Review the information above and exercise your independent professional judgment in responding to the query. If you concur, pleas document in the PROGRESS NOTES and DISCHARGE SUMMARY. If you do not agree with the query, please document in the query above. THIS QUERY IS PART OF THE PERMANENT MEDICAL RECORD
[2020-11-03 13:06] LABS: Glucose, Whole Blood 260 mg/dL (60-115)
--- NOTE | 2020-11-03 13:44 | P.PNIM_ITS ---
Subjective Subjective Date of Service: 11/03/20 Interval History: The patient was seen and evaluated this morning Laying in bed, feels better today Heart rate better controlled but remains elevated Withdrawal symptoms Better controlled Denies any fever, chills or shortness of breath No reported other overnight events. Systemic review: No fever, chills or weakness No chest pain, denies palpitation No shortness of breath or coughing No abdominal pain, nausea or vomiting No urinary symptoms No any rash or wounds Physical Exam Vital Signs: Vital Signs: Last Vital Signs Temp 98.6 F 11/03/20 11:33 Pulse 71 11/03/20 11:33 Resp 18 11/03/20 11:33 BP 140/91 H 11/03/20 11:33 Pulse Ox 94 11/03/20 11:33 Body Mass Index 35.6 Const: Other: Constitutional : Alert, oriented, not in distress Neck : Normal inspection, Supple Cardiovascular : Irregularly irregular, S1 S2, trace bilateral lower extremity edema Respiratory : Good bilateral air entry decreased mainly at the bases, no crackles, wheezes or rhonchi Gastrointestinal: soft, lax, Normal bowel sounds, Non tender Skin : Warm/Dry, No rash Neurological : Alert & oriented, No focal deficit Objective Data Current Medications Generic Name Dose Route Start Last Admin Trade Name Freq PRN Reason Stop Dose Admin Acetaminophen 650 mg 11/02/20 16:05 11/03/20 07:55 Acetaminophen 325 Mg Tablet PO 650 mg Q6H PRN Administration Pain, Mild (Pain Scale 1-3) Al Hydroxide/Mg Hydroxide 30 ml 11/02/20 16:05 Magnesium Hydrox/Alum Hydrox 30 Ml Oral.Susp PO Q4H PRN Heartburn/Nausea Aspirin 81 mg 11/03/20 09:00 11/03/20 08:00 Aspirin Enteric Coated 81 Mg Tablet. PO 81 mg DAILY FRANKY Administration Folic Acid 1 mg 11/03/20 09:00 11/03/20 08:00 Folic Acid 1 Mg Tablet PO 1 mg DAILY FRANKY Administration Heparin Sodium (Porcine) 5,000 unit 11/02/20 16:15 11/03/20 08:00 Heparin Sodium,Porcine 5,000 Unit/Ml Vial SUBCUT 5,000 unit Q8H FRANKY Administration Diltiazem HCl 125 mg/ Sodium 125 mls @ 0 mls/hr 11/02/20 14:45 11/03/20 04:43 Chloride IVCONT 10 mg/hr .Q0M FRANKY 10 mls/hr Administration Protocol Per Protocol Magnesium Sulfate 2 gm in 50 mls @ 25 mls/hr 11/03/20 13:40 Magnesium Sulfate/H2o IV 11/03/20 15:39 ONCE ONE Insulin Human Lispro 5 unit 11/02/20 16:30 11/03/20 12:10 Insulin Lispro 100 Unit/Ml 3 Ml Vial SUBCUT 5 unit QIDACHS [facility] Administration Medication 1 each 11/03/20 09:00 No Benzodiazepines MISCELLANE DAILY [facility] Metoprolol Tartrate 50 mg 11/03/20 09:00 11/03/20 09:45 Metoprolol Tartrate 50 Mg Tablet PO 50 mg BID [facility] Administration Protocol Ondansetron HCl 4 mg 11/02/20 16:05 Ondansetron Hcl 4 Mg/2 Ml Vial IVPUSH Q8H PRN Nausea and Vomiting Phenobarbital 60 mg 11/03/20 09:00 11/03/20 08:00 Phenobarbital 30 Mg Tablet PO 11/04/20 21:01 60 mg BID [facility] Administration Phenobarbital 30 mg 11/05/20 09:00 Phenobarbital 30 Mg Tablet PO 11/06/20 21:01 BID FRANKY Phenobarbital 30 mg 11/07/20 09:00 Phenobarbital 30 Mg Tablet PO 11/08/20 09:01 DAILY [facility] Sodium Chloride 3 ml 11/03/20 00:00 11/03/20 07:55 0.9 % Sodium Chloride Flush 3 Ml Syringe IVFLUSH 3 ml QSHIFT [facility] Administration Thiamine HCl 100 mg 11/03/20 09:00 11/03/20 08:00 Thiamine Hcl 100 Mg Tablet PO 100 mg DAILY [facility] Administration Labs CBC & Chem 7: 11/03/20 05:34 11/03/20 05:34 Labs: Laboratory Results - last 24 hr 11/02/20 11/02/20 11/03/20 15:52 20:56 05:34 WBC 9.7 RBC 3.86 L Hgb 12.5 L Hct 36.3 L MCV 94.0 MCH 32.4 MCHC 34.4 RDW 13.3 Plt Count 116 L D MPV 11.4 Absolute Nucleated RBC 0.000 Nucleated RBC % (auto) 0.0 Sodium Potassium Chloride Carbon Dioxide Anion Gap BUN Creatinine Estim Creat Clear Calc Estimated GFR POC Glucose 194 H 149 H Random Glucose Calcium Magnesium 11/03/20 11/03/20 11/03/20 05:34 07:23 11:23 WBC RBC Hgb Hct MCV MCH MCHC RDW Plt Count MPV Absolute Nucleated RBC Nucleated RBC % (auto) Sodium 137 Potassium 4.2 Chloride 101 Carbon Dioxide 22 Anion Gap 18 BUN 11 Creatinine 0.73 Estim Creat Clear Calc 141.1 Estimated GFR > 60 POC Glucose 282 H 260 H Random Glucose 231 H Calcium 9.0 D Magnesium 1.6 Quality Stroke Does the patient have a stroke diagnosis?: No VTE Prior VTE?: No VTE Risk Level:: Medical - moderate - high VTE Device Contraindication: Treatment Not Indicated VTE Drug Contraindication: N/A - Med Ordered Assessment and Plan (1) Alcohol use disorder, severe, dependence: Status: Acute (2) Alcohol withdrawal: Status: Acute (3) Atrial fibrillation with rapid ventricular response: Status: Acute Assessment and Plan: A 59 years old male with PMH of CHF, recent COVID, cardiomyopathy with low EF, atrial fibrillation, liver cirrhosis, CAD, alcohol abuse who presents to the hospital intoxicated with complaint of dizziness and palpitation found to be on AFib RVR. Atrial fibrillation with RVR Secondary to chronic alcohol abuse and cardiomyopathy Did not respond to IV boluses Wean down IV Cardizem drip Start p.o. metoprolol Patient not on anticoagulation for chronic alcoholism and falls per Cardiology note Hypomagnesemia Replacement of magnesium, keep above 2 Cardiomyopathy continue home medications for the time being Alcohol abuse Alcohol withdrawal Start phenobarbital protocol thiamine and folic acid Type 2 diabetes SSI, Lantus diabetic diet Thrombocytopenia Secondary to liver cirrhosis continue to monitor DVT PPX Heparin
[2020-11-03] MEDS: Magnesium Sulfate/H2O 2 GM/50 ML PIGGYBACK IV (14:21)
[2020-11-03 16:24] LABS: Glucose, Whole Blood 289 mg/dL (60-115)
[2020-11-03] MEDS: Furosemide 40 MG TABLET PO (16:43)
[2020-11-03 20:11] LABS: Glucose, Whole Blood 257 mg/dL (60-115)
[2020-11-03] MEDS: dilTIAZem HCL 125 MG in 0.9 % Sodium Chloride 100 ML 15 MG IVCONT (20:18)
[2020-11-03] MEDS: Atorvastatin Calcium 40 MG TABLET PO (20:19)
[2020-11-03] MEDS: traZODone HCL 50 MG TABLET PO (20:20)
[2020-11-03] MEDS: Gabapentin 100 MG CAPSULE 200 MG PO (20:20)
--- NOTE | 2020-11-04 00:29 | PC.NURSE ---
At approx 2019 this RN had entered pt room to give medications. Pt was found standing in the corner of his room holding something wrapped in a blanket. When asked what he was doing he stated nothing I'm trying to go back to bed. Assisted pt back to bed, when a very strong metallic/burnt rubber smell consumed the room. Pt HR jumped from 102 to 140 while on cardizem gtt. Pt acting bizarre, suddenly very giggly and vic. Type Inspector, security, and warper tender were called. Room was searched, no drug paraphernalia was found. Pt denied drug use. notified, instructed to monitor.
[2020-11-04] MEDS: Heparin Sodium,Porcine 5,000 UNIT/ML VIAL 5000 UNIT SUBCUT ×2 (01:35→07:47)
[2020-11-04 04:00] VITALS: BP 133/72; PULSE 98; RESP 20; TEMP 36.5; O2SAT 93
[2020-11-04 05:09] LABS: Hematocrit 34.3 % (42-52); Hemoglobin 11.6 g/dl (14.0-18.0); Mean Corpuscular HGB Conc 33.8 g/dl (31.0-36.0); Mean Corpuscular Hemoglobin 31.7 pg (27.0-33.0); Mean Corpuscular Volume 93.7 fL (80-98); Platelet Count 111 X10*3/uL (160-400); Red Blood Count 3.66 X10*6/uL (4.60-5.80); Red Cell Distribution Width 13.2 % (11.0-16.0); White Blood Count 7.6 X10*3/uL (4.8-10.8)
[2020-11-04 05:37] LABS: Anion Gap 17 (12-20); Blood Urea Nitrogen 13 mg/dL (9-16); Calcium 8.6 mg/dL (8.4-10.2); Carbon Dioxide 22 mmol/L (22-29); Chloride 99 mmol/L (96-108); Creatinine Clr Calc Pharmacy 141.1; Estimated Glomerular Filt Rate > 60; Glucose Random 201 mg/dL (60-115); Potassium 3.5 mmol/L (3.3-5.1); Sodium 134 mmol/L (135-145)
[2020-11-04 07:14] LABS: Glucose, Whole Blood 190 mg/dL (60-115)
[2020-11-04 07:30] VITALS: BP 129/82; PULSE 104; RESP 20; TEMP 37.2; O2SAT 96
[2020-11-04] MEDS: Insulin Lispro 100 UNIT/ML 3 ML VIAL SUBCUT ×2 (07:47→11:51)
[2020-11-04] MEDS: PHENobarbitaL 30 MG TABLET 60 MG PO (07:48)
[2020-11-04] MEDS: Furosemide 40 MG TABLET PO (07:48)
[2020-11-04] MEDS: Insulin Glargine,Hum.rec.anlog 100 UNIT/ML 10 ML VIAL 6 UNIT SUBCUT (07:48)
[2020-11-04] MEDS: Thiamine HCL 100 MG TABLET PO (07:48)
[2020-11-04] MEDS: Aspirin Enteric Coated 81 MG TABLET.DR PO (07:48)
[2020-11-04] MEDS: Gabapentin 100 MG CAPSULE 200 MG PO (07:48)
[2020-11-04 07:49] VITALS: BP 129/82; PULSE 104
[2020-11-04] MEDS: Folic Acid 1 MG TABLET PO (07:49)
[2020-11-04] MEDS: Metoprolol Tartrate 50 MG TABLET PO (07:49)
[2020-11-04] MEDS: 0.9 % Sodium Chloride Flush 3 ML SYRINGE IVFLUSH (07:49)
[2020-11-04 09:15] VITALS: BP 129/82; PULSE 104
[2020-11-04] MEDS: Metoprolol Tartrate 25 MG TABLET PO (09:15)
--- NOTE | 2020-11-04 10:02 | MHC.CM.PN ---
PT WILL DISCHARGE LATER TODAY WITH A PLAN TO GO STAY WITH HIS BROTHER. TAXI VOUCHER WILL BE PROVIDED
[2020-11-04 11:10] VITALS: BP 127/77; PULSE 76; RESP 20; TEMP 36.8; O2SAT 96
[2020-11-04 11:47] LABS: Glucose, Whole Blood 285 mg/dL (60-115)
--- NOTE | 2020-11-04 12:50 | PM.DS ---
DS: Providers Provider Date of Service: 11/04/20 Date of admission: 11/02/20 16:05 Primary care physician: Vikki Torrez MD DS: Diagnosis Discharge Diagnosis (1) Alcohol use disorder, severe, dependence: Status: Acute (2) Alcohol withdrawal: Status: Acute (3) Atrial fibrillation with rapid ventricular response: Status: Acute DS: Medications Discharge Medications Home Medications: Home Medications Medication Instructions Recorded Confirmed Lantus Solostar U-100 Insulin 6 unit SUBCUT QAM 09/11/20 11/03/20 atorvastatin 1 tab PO BEDTIME 09/11/20 11/03/20 gabapentin 1 cap PO TID 09/11/20 11/03/20 metformin 1 tab PO BID 09/11/20 11/03/20 trazodone 1 tab PO BEDTIME 09/11/20 11/03/20 Previous Rx's Medication Instructions Recorded furosemide [Lasix] 40 mg PO BID 30 Days #60 tab 09/14/20 aspirin 81 mg PO DAILY #30 tab 11/04/20 folic acid 1 mg PO DAILY #30 tab 11/04/20 metoprolol tartrate 75 mg PO BID 30 Days #180 tab 11/04/20 thiamine mononitrate (vit B1) 100 mg PO DAILY #30 tab 11/04/20 DS: Summary Hospital Course Hospital Course: Admission note HPI A 59 years old male with PMH of CHF, recent COVID, cardiomyopathy with low EF, atrial fibrillation, liver cirrhosis, CAD, alcohol abuse who presents to the hospital intoxicated with complaint of dizziness and palpitation. Patient is [place] speaker mainly. The patient reports he drinks on daily basis mainly beers. His alcohol level of above 330 at time of presentation. He reports feeling funny feeling in his chest and his heart is acting irregular. He denies any chest pain, fever, chills, shortness of breath or cough. In the emergency was noted to be in atrial fibrillation with RVR with heart rate in around 120-140s. Received IV Cardizem but did not respond much so Cardizem drip was started. Admitted for further evaluation and treatment. Hospital course The patient was admitted to the hospital for AFib with RVR. Started on Cardizem drip with fair response as his home metoprolol was added with good response heart rate became better controlled at the Cardizem drip was weaned off. Metoprolol dosage increased to 75 mg twice daily with maintaining his heart rate around 80s. He was treated with phenobarbital protocol for alcohol withdrawal with good response. He was advised about quitting alcoholism and reports that he was sober for 2 months prior to this event. He was seen previously by care team and he knows the resources outside and he will follow and try to be sober again. Time Spent with Patient Time attestation: Total time spent providing and/or coordinating discharge services: Discharge coordination time: Greater than 30 minutes Quality: Stroke Does the patient have a stroke diagnosis?: No Physical Exam Vital Signs: Vital Signs: Last Vital Signs Temp 98.2 F 11/04/20 11:10 Pulse 76 11/04/20 11:10 Resp 20 11/04/20 11:10 BP 127/77 11/04/20 11:10 Pulse Ox 96 11/04/20 11:10 Body Mass Index 35.6 Const: Other: Constitutional : Alert, oriented, not in distress Neck : Normal inspection, Supple 5 Cardiovascular : Irregularly irregular, S1 S2, no edema Respiratory : Good bilateral air entry , no crackles, wheezes or rhonchi Gastrointestinal: soft, lax, Normal bowel sounds, Non tender Skin : Warm/Dry, No rash Neurological : Alert & oriented, No focal deficit DS: Data Data Completed and Pending Completed studies during hospitalization [Text1]: Procedures Detoxification Services for Substance Abuse Treatment (09/11/20) Labs on day of discharge: Laboratory Results - last 24 hr 11/03/20 11/03/20 11/03/20 11:23 16:18 20:04 WBC RBC Hgb Hct MCV MCH MCHC RDW Plt Count MPV Absolute Nucleated RBC Nucleated RBC % (auto) Sodium Potassium Chloride Carbon Dioxide Anion Gap BUN Creatinine Estim Creat Clear Calc Estimated GFR POC Glucose 260 H 289 H 257 H Random Glucose Calcium 11/04/20 11/04/20 11/04/20 04:42 04:42 07:08 WBC 7.6 RBC 3.66 L Hgb 11.6 L Hct 34.3 L MCV 93.7 MCH 31.7 MCHC 33.8 RDW 13.2 Plt Count 111 L MPV 11.0 Absolute Nucleated RBC 0.000 Nucleated RBC % (auto) 0.0 Sodium 134 L Potassium 3.5 Chloride 99 Carbon Dioxide 22 Anion Gap 17 BUN 13 Creatinine 0.73 Estim Creat Clear Calc 141.1 Estimated GFR > 60 POC Glucose 190 H Random Glucose 201 H Calcium 8.6 11/04/20 11:12 WBC RBC Hgb Hct MCV MCH MCHC RDW Plt Count MPV Absolute Nucleated RBC Nucleated RBC % (auto) Sodium Potassium Chloride Carbon Dioxide Anion Gap BUN Creatinine Estim Creat Clear Calc Estimated GFR POC Glucose 285 H Random Glucose Calcium Discharge Plan Discharge Patient Disposition: Home, Self-Care Discharge Diagnosis: Atrial fibrillation rapid Alcohol withdrawal Referrals: Vikki Torrez MD [Primary Care Provider] - 1 Week Discharge Medications: New aspirin 81 mg Tablet,Delayed Release (Dr/Ec) 81 mg PO DAILY Qty: 30 RF: 0 folic acid 1 mg Tablet 1 mg PO DAILY Qty: 30 RF: 0 thiamine mononitrate (vit B1) 100 mg Tablet 100 mg PO DAILY Qty: 30 RF: 0 metoprolol tartrate 25 mg Tablet 75 mg PO BID 30 Days Qty: 180 RF: 0 Continued atorvastatin 40 mg tablet 1 tab PO BEDTIME RF: 0 trazodone 50 mg tablet 1 tab PO BEDTIME RF: 0 gabapentin 400 mg capsule 1 cap PO TID RF: 0 metformin 1,000 mg tablet 1 tab PO BID RF: 0 Lantus Solostar U-100 Insulin 100 unit/mL (3 mL) insulin pen 6 unit subcut QAM RF: 0 furosemide [Lasix] 40 mg tablet 40 mg PO BID 30 Days Qty: 60 RF: 0 Discontinued metoprolol tartrate 50 mg tablet 1 tab PO BID RF: 0 Discharge Orders: Discharge Order (Routine); Ordered 11/04/20 Ordered By: Mya Laws Diet: advance to usual diet Activity on Discharge: As tolerated Stand Alone Forms: Patient Portal Discharge page Care Plan Goals: Read below Health Concerns: Read below Plan of Treatment: You were admitted to the hospital for palpitations. Found to be in atrial fibrillation with rapid ventricular response treated with IV and oral medication with good response as your heart rate was brought down to normal. You were treated for alcohol withdrawal with phenobarbital with good response. Assessment: Increase metoprolol to 75 mg twice Daily Start baby aspirin Start folic acid and thiamine We advise you complete abstinence from alcohol
== END 2020-11-04 13:33 | disposition home or self-care (01) | DRG 309 ==
LOC: HO.ED 10:23 → HO.EDOVER 16:22 → HO.IMC 16:57
PROVIDERS: Physician Assistant; Admitting Provider Student in an Organized Health Care Education/Training Program; Emergency Provider Emergency Medicine; PCP Family Medicine; Visit Provider Student in an Organized Health Care Education/Training Program
DX: I48.21 Permanent atrial fibrillation (principal); F10.239 Alcohol dependence with withdrawal, unspecified; F10.229 Alcohol dependence with intoxication, unspecified; I42.9 Cardiomyopathy, unspecified; K74.60 Unspecified cirrhosis of liver; D69.6 Thrombocytopenia, unspecified; I25.10 Atherosclerotic heart disease of native coronary artery without angina pectoris; F32.9 Major depressive disorder, single episode, unspecified; Z79.4 Long term (current) use of insulin; Z79.82 Long term (current) use of aspirin; Z79.899 Other long term (current) drug therapy
CPT/HCPCS: 36415; 70450; 71045; 72125; 80048; 80076; 80307; 81001; 82077; 82550; 82947; 83690; 83735; 83880; 84484; 85025; 85027; 85610; 85730; 87635; 93005; 99285; J2060; J2560; J3411; J3475

== ENCOUNTER 2020-11-06 21:43 | Emergency (ER) | payer MEDICARE, MEDICAID, SELFPAY ==
--- NOTE | 2020-11-06 21:47 | ED_ITS ---
HPI - Alcohol General Chief Complaint: ETOH/Substance Use <Ila Soto NP - Last Filed: 11/07/20 01:49> Stated Complaint: etoh <Ila Soto NP - Last Filed: 11/07/20 01:49> Time Seen by Provider: 11/07/20 02:20 <Ila Soto NP - Last Filed: 11/07/20 01:49> Source: patient and EMS <Ila Soto NP - Last Filed: 11/07/20 01:49> Mode of arrival: EMS <Ila Soto NP - Last Filed: 11/07/20 01:49> Limitations: altered mental status <Ila Soto NP - Last Filed: 11/07/20 01:49> History of Present Illness HPI narrative: 59-year-old male with a past medical history of AFib, CAD, cardiomyopathy, CHF, cirrhosis, depression, diabetes, ETOH abuse, HTN,presents via EMS for ETOH intoxication found slumped over on the ground this evening covered in his urine. Patient was seen and treated in our ED 3 days ago for similar symptoms and presents on a regular basis for similar circumstances. Patient opens his eyes to voice however is not answering any questions, and is continuously falling asleep on exam. <Ila Soto NP - Last Filed: 11/07/20 01:49> MD complaint: alcohol intoxication <Ila Soto NP - Last Filed: 11/07/20 01:49> Last drink: Just prior to admission <Ila Soto NP - Last Filed: 11/07/20 01:49> Chronic alcohol use: Yes <Ila Soto NP - Last Filed: 11/07/20 01:49> Previous visits for alcohol intoxication: Yes <Ila Soto NP - Last Filed: 11/07/20 01:49> Recent trauma: Yes <Ila Soto NP - Last Filed: 11/07/20 01:49> Related Data Home Medications: Home Medications Medication Instructions Recorded Confirmed Lantus Solostar U-100 Insulin 6 unit SUBCUT QAM 09/11/20 11/03/20 atorvastatin 1 tab PO BEDTIME 09/11/20 11/03/20 gabapentin 1 cap PO TID 09/11/20 11/03/20 metformin 1 tab PO BID 09/11/20 11/03/20 trazodone 1 tab PO BEDTIME 09/11/20 11/03/20 Previous Rx's Medication Instructions Recorded furosemide [Lasix] 40 mg PO BID 30 Days #60 tab 09/14/20 aspirin 81 mg PO DAILY #30 tab 11/04/20 folic acid 1 mg PO DAILY #30 tab 11/04/20 metoprolol tartrate 75 mg PO BID 30 Days #180 tab 11/04/20 thiamine mononitrate (vit B1) 100 mg PO DAILY #30 tab 11/04/20 <Ila Soto NP - Last Filed: 11/07/20 01:49> Allergies/Adverse Reactions: Allergies Allergy/AdvReac Type Severity Reaction Status Date / Time Penicillins [PCN] Allergy Unknown UNKNOWN Verified 09/03/20 16:05 <Ila Soto NP - Last Filed: 11/07/20 01:49> Review of Systems Review of Systems: Yes Unobtainable due to mental status <Ila Soto NP - Last Filed: 11/07/20 01:49> [facility] Past Medical History Source: old records reviewed <Ila Soto NP - Last Filed: 11/07/20 01:49> Medical History: Medical History A-fib Atrial fibrillation, rapid CAD (coronary artery disease) Cardiomyopathy CHF (congestive heart failure) Cirrhosis Depression Diabetes ETOH abuse HTN (hypertension) <Ila Soto NP - Last Filed: 11/07/20 01:49> Social History Social History: Social History Household Members: None Housing: Homeless Housing Other:: rents room Do you presently have visiting nurse or other home services: No Alcohol intake: current Alcohol intake frequency: 3 or more drinks per day Alcohol type: beer, wine and hard liquor Patient Tobacco Use Status: Never used Tobacco Second Hand Smoke Exposure: No Advance Directives: No Advance Directives Information Provided: Yes service: Yes Current occupational status: disabled <Ila Soto NP - Last Filed: 11/07/20 01:49> Physical Exam Vital Signs: Vital Signs: Last Vital Signs Temp 97.9 F 11/06/20 22:07 Pulse 127 H 11/07/20 01:09 Resp 20 11/06/20 22:07 BP 131/75 11/07/20 01:09 Pulse Ox 97 11/06/20 22:07 Body Mass Index 38.4 <Ila Soto NP - Last Filed: 11/07/20 01:49> Vital Signs: Last Vital Signs Temp 97.9 F 11/06/20 22:07 Pulse 127 H 11/07/20 01:09 Resp 20 11/06/20 22:07 BP 131/75 11/07/20 01:09 Pulse Ox 97 11/06/20 22:07 Body Mass Index 38.4 <Kayla Su MD - Last Filed: 11/07/20 02:23> Appearance: Intoxicated, responsive to voice. Incontinent of urine Eyes: Pupils equal, round and reactive to light. ENT: Pharynx normal. Neck: Normal inspection. Neck supple. CVS: Normal heart rate and rhythm. Pulses normal. Respiratory: No respiratory distress. Breath sounds normal. Abdomen: Soft and nontender. Obese. Skin: Skin warm and dry. Normal skin color. Normal skin turgor. Extremities: No lower extremity edema. Neuro: No sensory deficit. <Ila Soto NP - Last Filed: 11/07/20 01:49> Course Course Course Narrative: 60-year-old male presents via EMS for alcohol intoxication. Was found slumped over on the ground next to his friend and multiple bottles of alcohol, and is incontinent of urine. He presents emergency department in this manner almost twice weekly. He is responsive to verbal stimulus, falls asleep mid sentence. He does have a significant history of AFib, will order EKG, troponins, CBC and Chem 7. 12:11 a.m. labs pending at this time. Heart rate varying from 1 teens to 130. Order for diltiazem 15 mg IV push 1:22 a.m. H&H 11.6/33.4 which is consistent with prior values. Platelet count 112 which is consistent and better than prior values. Urinalysis shows heme which is chronic. Heart rate in the 90s-110s approximately 10 minute status post diltiazem. 1:48 a.[address]. sign out to Dr. Su <Ila Soto NP - Last Filed: 11/07/20 01:49> All investigations reviewed, patient's heart rate remains controlled and he is hemodynamically stable but continues to require significant stimulation for arousability secondary to alcohol intoxication but is otherwise breathing well. <Kayla Su MD - Last Filed: 11/07/20 02:23> Reevaluation(s) Reevaluation #1: Patient placed in physician observation because the patient needed more time for sobering. At the time observation was started the patient's vital signs were stable, patient is drowsy/intoxication but arousable, neuro: Nonfocal, CV RRR, lungs clear <Kayla Su MD - Last Filed: 11/07/20 02:23> Time: 02:22 <Kayla Su MD - Last Filed: 11/07/20 02:23> MDM - Alcohol Differential Diagnosis Differential diagnosis: Likely alcohol dependence and alcohol intoxication <Ila Soto NP - Last Filed: 11/07/20 01:49> Medical Records Attestation: I reviewed the patient's medical records. <Ila Soto NP - Last Filed: 11/07/20 01:49> Lab Data Attestation: I reviewed the patient's lab results. <Ila Soto NP - Last Filed: 11/07/20 01:49> Result diagrams: : 11/07/20 01:04 11/07/20 01:04 <Ila Soto NP - Last Filed: 11/07/20 01:49> Labs: Lab Results 11/06/20 11/07/20 11/07/20 Range/Units 22:12 01:04 01:04 WBC 6.9 (4.8-10.8) X10*3/uL RBC 3.59 L (4.60-5.80) X10*6/uL Hgb 11.6 L (14.0-18.0) g/dl Hct 33.4 L (42-52) % MCV 93.0 (80-98) fL MCH 32.3 (27.0-33.0) pg MCHC 34.7 (31.0-36.0) g/dl RDW 13.2 (11.0-16.0) % Plt Count 112 L (160-400) X10*3/uL MPV 10.2 (9.4-12.4) fL Immature Gran % (Auto) 0.6 H (0.0-0.4) % Neut % (Auto) 69.5 (45-73) % Lymph % (Auto) 20.4 (20-40) % [place] % (Auto) 6.9 (2-11) % Eos % (Auto) 2.3 (0-4) % Baso % (Auto) 0.3 (0-2) % Lymph # (Auto) 1.4 (1.2-4.9) X10*3/uL [place] # (Auto) 0.5 (0.1-1.2) X10*3/uL Eos # (Auto) 0.2 (0.0-0.4) X10*3/uL Baso # (Auto) 0.0 (0.0-0.2) X10*3/uL Abs Immat Gran (auto) 0.04 H (0.00-0.03) X10*3/uL Absolute Neuts (auto) 4.8 (2.0-8.3) X10*3/uL Absolute Nucleated RBC 0.000 (0.0-0.012) X10*3/uL Nucleated RBC % (auto) 0.0 (0.0-0.2) /100WBC APTT 36.8 (24.1-38.0) SEC Sodium (135-145) mmol/L Potassium (3.3-5.1) mmol/L Chloride (96-108) mmol/L Carbon Dioxide (22-29) mmol/L Anion Gap (12-20) BUN (9-16) mg/dL Creatinine (0.5-1.4) mg/dL Estim Creat Clear Calc Estimated GFR POC Glucose 275 H (60-115) mg/dL Random Glucose (60-115) mg/dL Calcium (8.4-10.2) mg/dL Total Bilirubin (0.0-1.0) mg/dL Direct Bilirubin (0.0-0.5) mg/dL AST (5-37) U/L ALT (0-40) U/L Alkaline Phosphatase (39-117) U/L Troponin I High Sens (<3.5-35.0) ng/L Total Protein (6.5-8.0) g/dL Albumin (3.5-5.0) g/dL Lipase (8-78) U/L Urine Color Urine Appearance Urine pH (5.0-8.0) Ur Specific [place] (1.005-1.025) Urine Protein (NEG-TRACE) MG/DL Urine Glucose (UA) (NEG) MG/DL Urine Ketones (NEG) MG/DL Urine Blood (NEG) Urine Nitrite (NEG) Ur Leukocyte Esterase (NEG) Urine RBC (0) /HPF Urine WBC (0-4) /HPF Ur Squamous Epith Cells /LPF Urine Bacteria /LPF Hyaline Casts /LPF Urine Opiates Screen (Not Detect) Ur Barbiturates Screen (Not Detect) Ur Phencyclidine Scrn (Not Detect) Ur Amphetamines Screen (Not Detect) U Benzodiazepines Scrn (Not Detect) Urine Cocaine Screen (Not Detect) U Marijuana (THC) Screen (Not Detect) 11/07/20 11/07/20 11/07/20 Range/Units 01:04 01:04 01:07 WBC (4.8-10.8) X10*3/uL RBC (4.60-5.80) X10*6/uL Hgb (14.0-18.0) g/dl Hct (42-52) % MCV (80-98) fL MCH (27.0-33.0) pg MCHC (31.0-36.0) g/dl RDW (11.0-16.0) % Plt Count (160-400) X10*3/uL MPV (9.4-12.4) fL Immature Gran % (Auto) (0.0-0.4) % Neut % (Auto) (45-73) % Lymph % (Auto) (20-40) % [place] % (Auto) (2-11) % Eos % (Auto) (0-4) % Baso % (Auto) (0-2) % Lymph # (Auto) (1.2-4.9) X10*3/uL [place] # (Auto) (0.1-1.2) X10*3/uL Eos # (Auto) (0.0-0.4) X10*3/uL Baso # (Auto) (0.0-0.2) X10*3/uL Abs Immat Gran (auto) (0.00-0.03) X10*3/uL Absolute Neuts (auto) (2.0-8.3) X10*3/uL Absolute Nucleated RBC (0.0-0.012) X10*3/uL Nucleated RBC % (auto) (0.0-0.2) /100WBC APTT (24.1-38.0) SEC Sodium 135 (135-145) mmol/L Potassium 3.5 (3.3-5.1) mmol/L Chloride 101 (96-108) mmol/L Carbon Dioxide 20 L (22-29) mmol/L Anion Gap 18 (12-20) BUN 10 (9-16) mg/dL Creatinine 0.73 (0.5-1.4) mg/dL Estim Creat Clear Calc 138.1 Estimated GFR > 60 POC Glucose (60-115) mg/dL Random Glucose 258 H (60-115) mg/dL Calcium 9.0 (8.4-10.2) mg/dL Total Bilirubin 0.6 (0.0-1.0) mg/dL Direct Bilirubin 0.3 (0.0-0.5) mg/dL AST 30 (5-37) U/L ALT 25 (0-40) U/L Alkaline Phosphatase 106 (39-117) U/L Troponin I High Sens 21.6 (<3.5-35.0) ng/L Total Protein 7.3 (6.5-8.0) g/dL Albumin 3.7 (3.5-5.0) g/dL Lipase 16 (8-78) U/L Urine Color Urine Appearance Urine pH (5.0-8.0) Ur Specific [place] (1.005-1.025) Urine Protein (NEG-TRACE) MG/DL Urine Glucose (UA) (NEG) MG/DL Urine Ketones (NEG) MG/DL Urine Blood (NEG) Urine Nitrite (NEG) Ur Leukocyte Esterase (NEG) Urine RBC (0) /HPF Urine WBC (0-4) /HPF Ur Squamous Epith Cells /LPF Urine Bacteria /LPF Hyaline Casts /LPF Urine Opiates Screen Not Detected (Not Detect) Ur Barbiturates Screen POSITIVE H (Not Detect) Ur Phencyclidine Scrn Not Detected (Not Detect) Ur Amphetamines Screen Not Detected (Not Detect) U Benzodiazepines Scrn Not Detected (Not Detect) Urine Cocaine Screen Not Detected (Not Detect) U Marijuana (THC) Screen Not Detected (Not Detect) 11/07/20 Range/Units 01:07 WBC (4.8-10.8) X10*3/uL RBC (4.60-5.80) X10*6/uL Hgb (14.0-18.0) g/dl Hct (42-52) % MCV (80-98) fL MCH (27.0-33.0) pg MCHC (31.0-36.0) g/dl RDW (11.0-16.0) % Plt Count (160-400) X10*3/uL MPV (9.4-12.4) fL Immature Gran % (Auto) (0.0-0.4) % Neut % (Auto) (45-73) % Lymph % (Auto) (20-40) % [place] % (Auto) (2-11) % Eos % (Auto) (0-4) % Baso % (Auto) (0-2) % Lymph # (Auto) (1.2-4.9) X10*3/uL [place] # (Auto) (0.1-1.2) X10*3/uL Eos # (Auto) (0.0-0.4) X10*3/uL Baso # (Auto) (0.0-0.2) X10*3/uL Abs Immat Gran (auto) (0.00-0.03) X10*3/uL Absolute Neuts (auto) (2.0-8.3) X10*3/uL Absolute Nucleated RBC (0.0-0.012) X10*3/uL Nucleated RBC % (auto) (0.0-0.2) /100WBC APTT (24.1-38.0) SEC Sodium (135-145) mmol/L Potassium (3.3-5.1) mmol/L Chloride (96-108) mmol/L Carbon Dioxide (22-29) mmol/L Anion Gap (12-20) BUN (9-16) mg/dL Creatinine (0.5-1.4) mg/dL Estim Creat Clear Calc Estimated GFR POC Glucose (60-115) mg/dL Random Glucose (60-115) mg/dL Calcium (8.4-10.2) mg/dL Total Bilirubin (0.0-1.0) mg/dL Direct Bilirubin (0.0-0.5) mg/dL AST (5-37) U/L ALT (0-40) U/L Alkaline Phosphatase (39-117) U/L Troponin I High Sens (<3.5-35.0) ng/L Total Protein (6.5-8.0) g/dL Albumin (3.5-5.0) g/dL Lipase (8-78) U/L Urine Color STRAW Urine Appearance CLEAR Urine pH 6.0 (5.0-8.0) Ur Specific [place] 1.010 (1.005-1.025) Urine Protein 2+ H (NEG-TRACE) MG/DL Urine Glucose (UA) 500 H (NEG) MG/DL Urine Ketones NEG (NEG) MG/DL Urine Blood 2+ H (NEG) Urine Nitrite NEG (NEG) Ur Leukocyte Esterase NEG (NEG) Urine RBC 0 (0) /HPF Urine WBC 0-2 (0-4) /HPF Ur Squamous Epith Cells TRACE /LPF Urine Bacteria NONE /LPF Hyaline Casts 0-2 /LPF Urine Opiates Screen (Not Detect) Ur Barbiturates Screen (Not Detect) Ur Phencyclidine Scrn (Not Detect) Ur Amphetamines Screen (Not Detect) U Benzodiazepines Scrn (Not Detect) Urine Cocaine Screen (Not Detect) U Marijuana (THC) Screen (Not Detect) <Ila Soto NP - Last Filed: 11/07/20 01:49> Lab Results 11/06/20 11/07/20 11/07/20 Range/Units 22:12 01:04 01:04 WBC 6.9 (4.8-10.8) X10*3/uL RBC 3.59 L (4.60-5.80) X10*6/uL Hgb 11.6 L (14.0-18.0) g/dl Hct 33.4 L (42-52) % MCV 93.0 (80-98) fL MCH 32.3 (27.0-33.0) pg MCHC 34.7 (31.0-36.0) g/dl RDW 13.2 (11.0-16.0) % Plt Count 112 L (160-400) X10*3/uL MPV 10.2 (9.4-12.4) fL Immature Gran % (Auto) 0.6 H (0.0-0.4) % Neut % (Auto) 69.5 (45-73) % Lymph % (Auto) 20.4 (20-40) % [place] % (Auto) 6.9 (2-11) % Eos % (Auto) 2.3 (0-4) % Baso % (Auto) 0.3 (0-2) % Lymph # (Auto) 1.4 (1.2-4.9) X10*3/uL [place] # (Auto) 0.5 (0.1-1.2) X10*3/uL Eos # (Auto) 0.2 (0.0-0.4) X10*3/uL Baso # (Auto) 0.0 (0.0-0.2) X10*3/uL Abs Immat Gran (auto) 0.04 H (0.00-0.03) X10*3/uL Absolute Neuts (auto) 4.8 (2.0-8.3) X10*3/uL Absolute Nucleated RBC 0.000 (0.0-0.012) X10*3/uL Nucleated RBC % (auto) 0.0 (0.0-0.2) /100WBC APTT 36.8 (24.1-38.0) SEC Sodium (135-145) mmol/L Potassium (3.3-5.1) mmol/L Chloride (96-108) mmol/L Carbon Dioxide (22-29) mmol/L Anion Gap (12-20) BUN (9-16) mg/dL Creatinine (0.5-1.4) mg/dL Estim Creat Clear Calc Estimated GFR POC Glucose 275 H (60-115) mg/dL Random Glucose (60-115) mg/dL Calcium (8.4-10.2) mg/dL Total Bilirubin (0.0-1.0) mg/dL Direct Bilirubin (0.0-0.5) mg/dL AST (5-37) U/L ALT (0-40) U/L Alkaline Phosphatase (39-117) U/L Troponin I High Sens (<3.5-35.0) ng/L Total Protein (6.5-8.0) g/dL Albumin (3.5-5.0) g/dL Lipase (8-78) U/L Urine Color Urine Appearance Urine pH (5.0-8.0) Ur Specific [place] (1.005-1.025) Urine Protein (NEG-TRACE) MG/DL Urine Glucose (UA) (NEG) MG/DL Urine Ketones (NEG) MG/DL Urine Blood (NEG) Urine Nitrite (NEG) Ur Leukocyte Esterase (NEG) Urine RBC (0) /HPF Urine WBC (0-4) /HPF Ur Squamous Epith Cells /LPF Urine Bacteria /LPF Hyaline Casts /LPF Urine Opiates Screen (Not Detect) Ur Barbiturates Screen (Not Detect) Ur Phencyclidine Scrn (Not Detect) Ur Amphetamines Screen (Not Detect) U Benzodiazepines Scrn (Not Detect) Urine Cocaine Screen (Not Detect) U Marijuana (THC) Screen (Not Detect) 11/07/20 11/07/20 11/07/20 Range/Units 01:04 01:04 01:07 WBC (4.8-10.8) X10*3/uL RBC (4.60-5.80) X10*6/uL Hgb (14.0-18.0) g/dl Hct (42-52) % MCV (80-98) fL MCH (27.0-33.0) pg MCHC (31.0-36.0) g/dl RDW (11.0-16.0) % Plt Count (160-400) X10*3/uL MPV (9.4-12.4) fL Immature Gran % (Auto) (0.0-0.4) % Neut % (Auto) (45-73) % Lymph % (Auto) (20-40) % [place] % (Auto) (2-11) % Eos % (Auto) (0-4) % Baso % (Auto) (0-2) % Lymph # (Auto) (1.2-4.9) X10*3/uL [place] # (Auto) (0.1-1.2) X10*3/uL Eos # (Auto) (0.0-0.4) X10*3/uL Baso # (Auto) (0.0-0.2) X10*3/uL Abs Immat Gran (auto) (0.00-0.03) X10*3/uL Absolute Neuts (auto) (2.0-8.3) X10*3/uL Absolute Nucleated RBC (0.0-0.012) X10*3/uL Nucleated RBC % (auto) (0.0-0.2) /100WBC APTT (24.1-38.0) SEC Sodium 135 (135-145) mmol/L Potassium 3.5 (3.3-5.1) mmol/L Chloride 101 (96-108) mmol/L Carbon Dioxide 20 L (22-29) mmol/L Anion Gap 18 (12-20) BUN 10 (9-16) mg/dL Creatinine 0.73 (0.5-1.4) mg/dL Estim Creat Clear Calc 138.1 Estimated GFR > 60 POC Glucose (60-115) mg/dL Random Glucose 258 H (60-115) mg/dL Calcium 9.0 (8.4-10.2) mg/dL Total Bilirubin 0.6 (0.0-1.0) mg/dL Direct Bilirubin 0.3 (0.0-0.5) mg/dL AST 30 (5-37) U/L ALT 25 (0-40) U/L Alkaline Phosphatase 106 (39-117) U/L Troponin I High Sens 21.6 (<3.5-35.0) ng/L Total Protein 7.3 (6.5-8.0) g/dL Albumin 3.7 (3.5-5.0) g/dL Lipase 16 (8-78) U/L Urine Color Urine Appearance Urine pH (5.0-8.0) Ur Specific [place] (1.005-1.025) Urine Protein (NEG-TRACE) MG/DL Urine Glucose (UA) (NEG) MG/DL Urine Ketones (NEG) MG/DL Urine Blood (NEG) Urine Nitrite (NEG) Ur Leukocyte Esterase (NEG) Urine RBC (0) /HPF Urine WBC (0-4) /HPF Ur Squamous Epith Cells /LPF Urine Bacteria /LPF Hyaline Casts /LPF Urine Opiates Screen Not Detected (Not Detect) Ur Barbiturates Screen POSITIVE H (Not Detect) Ur Phencyclidine Scrn Not Detected (Not Detect) Ur Amphetamines Screen Not Detected (Not Detect) U Benzodiazepines Scrn Not Detected (Not Detect) Urine Cocaine Screen Not Detected (Not Detect) U Marijuana (THC) Screen Not Detected (Not Detect) 11/07/20 Range/Units 01:07 WBC (4.8-10.8) X10*3/uL RBC (4.60-5.80) X10*6/uL Hgb (14.0-18.0) g/dl Hct (42-52) % MCV (80-98) fL MCH (27.0-33.0) pg MCHC (31.0-36.0) g/dl RDW (11.0-16.0) % Plt Count (160-400) X10*3/uL MPV (9.4-12.4) fL Immature Gran % (Auto) (0.0-0.4) % Neut % (Auto) (45-73) % Lymph % (Auto) (20-40) % [place] % (Auto) (2-11) % Eos % (Auto) (0-4) % Baso % (Auto) (0-2) % Lymph # (Auto) (1.2-4.9) X10*3/uL [place] # (Auto) (0.1-1.2) X10*3/uL Eos # (Auto) (0.0-0.4) X10*3/uL Baso # (Auto) (0.0-0.2) X10*3/uL Abs Immat Gran (auto) (0.00-0.03) X10*3/uL Absolute Neuts (auto) (2.0-8.3) X10*3/uL Absolute Nucleated RBC (0.0-0.012) X10*3/uL Nucleated RBC % (auto) (0.0-0.2) /100WBC APTT (24.1-38.0) SEC Sodium (135-145) mmol/L Potassium (3.3-5.1) mmol/L Chloride (96-108) mmol/L Carbon Dioxide (22-29) mmol/L Anion Gap (12-20) BUN (9-16) mg/dL Creatinine (0.5-1.4) mg/dL Estim Creat Clear Calc Estimated GFR POC Glucose (60-115) mg/dL Random Glucose (60-115) mg/dL Calcium (8.4-10.2) mg/dL Total Bilirubin (0.0-1.0) mg/dL Direct Bilirubin (0.0-0.5) mg/dL AST (5-37) U/L ALT (0-40) U/L Alkaline Phosphatase (39-117) U/L Troponin I High Sens (<3.5-35.0) ng/L Total Protein (6.5-8.0) g/dL Albumin (3.5-5.0) g/dL Lipase (8-78) U/L Urine Color STRAW Urine Appearance CLEAR Urine pH 6.0 (5.0-8.0) Ur Specific [place] 1.010 (1.005-1.025) Urine Protein 2+ H (NEG-TRACE) MG/DL Urine Glucose (UA) 500 H (NEG) MG/DL Urine Ketones NEG (NEG) MG/DL Urine Blood 2+ H (NEG) Urine Nitrite NEG (NEG) Ur Leukocyte Esterase NEG (NEG) Urine RBC 0 (0) /HPF Urine WBC 0-2 (0-4) /HPF Ur Squamous Epith Cells TRACE /LPF Urine Bacteria NONE /LPF Hyaline Casts 0-2 /LPF Urine Opiates Screen (Not Detect) Ur Barbiturates Screen (Not Detect) Ur Phencyclidine Scrn (Not Detect) Ur Amphetamines Screen (Not Detect) U Benzodiazepines Scrn (Not Detect) Urine Cocaine Screen (Not Detect) U Marijuana (THC) Screen (Not Detect) <Kayla Su MD - Last Filed: 11/07/20 02:23> ECG Data Attestation: I personally reviewed and interpreted this ECG as follows: <Ila Soto NP - Last Filed: 11/07/20 01:49> ECG interpretation date: 11/06/20 <Ila Soto NP - Last Filed: 11/07/20 01:49> ECG interpretation time: 22:41 <Ila Soto NP - Last Filed: 11/07/20 01:49> Interpretation: Vent. rate 118 BPM OR interval * ms QRS duration 102 ms QT/QTc 308/431 ms P-R-T axes * -66 80 Atrial fibrillation with rapid ventricular response Left axis deviation Cannot rule out Inferior infarct (cited on or before 02-JUL-2016) Possible Anterior infarct (cited on or before 02-JUL-2016) Abnormal ECG When compared with ECG of 02-NOV-2020 14:41, No significant change was found <Ila Soto NP - Last Filed: 11/07/20 01:49> Discharge Plan Discharge Clinical Impression: ETOH abuse Alcoholic intoxication Qualifiers: Complication of substance-induced condition: uncomplicated Qualified Code(s): F10.920 - Alcohol use, unspecified with intoxication, uncomplicated <Ila Soto NP - Last Filed: 11/07/20 01:49> Patient Disposition: Home, Self-Care <Ila Soto NP - Last Filed: 11/07/20 01:49> Instructions: Abuse of Alcohol (ED), Alcohol Use Disorder (ED) <Ila Soto NP - Last Filed: 11/07/20 01:49> Additional Instructions: Please consider detox Thank you for choosing this emergency department for evaluation. Please follow-up with primary care physician as needed. Return to the emergency department for any new, concerning, or worsening symptoms. <Ila Soto NP - Last Filed: 11/07/20 01:49> Prescriptions: No Action atorvastatin 40 mg tablet 1 tab PO BEDTIME RF: 0 trazodone 50 mg tablet 1 tab PO BEDTIME RF: 0 gabapentin 400 mg capsule 1 cap PO TID RF: 0 metformin 1,000 mg tablet 1 tab PO BID RF: 0 Lantus Solostar U-100 Insulin 100 unit/mL (3 mL) insulin pen 6 unit subcut QAM RF: 0 furosemide [Lasix] 40 mg tablet 40 mg PO BID 30 Days Qty: 60 RF: 0 aspirin 81 mg Tablet,Delayed Release (Dr/Ec) 81 mg PO DAILY Qty: 30 RF: 0 folic acid 1 mg Tablet 1 mg PO DAILY Qty: 30 RF: 0 thiamine mononitrate (vit B1) 100 mg Tablet 100 mg PO DAILY Qty: 30 RF: 0 metoprolol tartrate 25 mg Tablet 75 mg PO BID 30 Days Qty: 180 RF: 0 <Ila Soto NP - Last Filed: 11/07/20 01:49>
--- NOTE | 2020-11-06 21:52 | ECG_ITS ---
Test Reason : CARDIAC HISTORY Blood Pressure : / mmHG Vent. Rate : 118 BPM Atrial Rate : 111 BPM P-R Int : 000 ms QRS Dur : 102 ms QT Int : 308 ms P-R-T Axes : 000 -66 080 degrees QTc Int : 431 ms Atrial fibrillation with rapid ventricular response Left axis deviation Cannot rule out Inferior infarct (cited on or before 02-JUL-2016) Possible Anterior infarct (cited on or before 02-JUL-2016) Abnormal ECG When compared with ECG of 02-NOV-2020 14:41, No significant change was found Referred By: Ila Soto Electronically Signed By:COLIN LLAMAS MD
[2020-11-06 22:07] VITALS: BP 158/74; PULSE 123; RESP 20; TEMP 36.6; O2SAT 97; BMI 38.4
[2020-11-06 22:16] LABS: Glucose, Whole Blood 275 mg/dL (60-115)
[2020-11-07 01:09] VITALS: BP 131/75; PULSE 127
[2020-11-07] MEDS: dilTIAZem HCL 50 MG/10 ML VIAL 15 MG IVPUSH (01:09)
[2020-11-07 01:11] VITALS: BP 131/75; PULSE 121; RESP 18; O2SAT 94
[2020-11-07 01:14] LABS: MANUAL DIFF FLAG NO
[2020-11-07 01:16] LABS: Basophils Percent Auto 0.3 % (0-2); Eosinophils Absolute Auto 0.2 X10*3/uL (0.0-0.4); Eosinophils Percent Auto 2.3 % (0-4); Hematocrit 33.4 % (42-52); Hemoglobin 11.6 g/dl (14.0-18.0); Imm Gran Abs Auto 0.04 X10*3/uL (0.00-0.03); Imm Gran Pct Auto 0.6 % (0.0-0.4); Lymphocytes Absolute Auto 1.4 X10*3/uL (1.2-4.9); Lymphocytes Percent Auto 20.4 % (20-40); Mean Corpuscular HGB Conc 34.7 g/dl (31.0-36.0); Mean Corpuscular Hemoglobin 32.3 pg (27.0-33.0); Mean Platelet Volume 10.2 fL (9.4-12.4); Monocytes Absolute Auto 0.5 X10*3/uL (0.1-1.2); Monocytes Percent Auto 6.9 % (2-11); Neutrophils Absolute Auto 4.8 X10*3/uL (2.0-8.3); Neutrophils Percent Auto 69.5 % (45-73); Platelet Count 112 X10*3/uL (160-400); Red Blood Count 3.59 X10*6/uL (4.60-5.80); Red Cell Distribution Width 13.2 % (11.0-16.0); White Blood Count 6.9 X10*3/uL (4.8-10.8)
[2020-11-07 01:16] LABS: Glucose Urine UA 500 MG/DL (NEG); Leukocyte Esterase Urine NEG (NEG); Nitrite Urine NEG (NEG); Urine Blood 2+ (NEG); Urine Ketones NEG (NEG); Urine Protein 2+ MG/DL (NEG-TRACE)
[2020-11-07 01:18] LABS: Appearance Urine CLEAR; Color Urine STRAW
[2020-11-07 01:23] LABS: RBC Urine 0 /HPF (0); WBC Urine 0-2 /HPF (0-4)
[2020-11-07 01:24] LABS: Hyaline Casts Urine 0-2 /LPF; Squamous Epithelial Cell Urine TRACE /LPF
[2020-11-07 01:24] LABS: Partial Thromboplastin Time 36.8 SEC (24.1-38.0)
[2020-11-07 01:41] VITALS: PULSE 99
[2020-11-07 01:55] LABS: Amphetamine Screen Urine Not Detected (Not Detect); Barbiturates, Urine POSITIVE (Not Detect); Benzodiazepines Screen Urine Not Detected (Not Detect); Cannabinoid Screen Urine Not Detected (Not Detect); Cocaine Screen Urine Not Detected (Not Detect); Opiate Screen Urine Not Detected (Not Detect); Phencyclidine Screen Urine Not Detected (Not Detect)
[2020-11-07 01:55] LABS: Alanine Aminotransferase 25 U/L (0-40); Albumin Level 3.7 g/dL (3.5-5.0); Alkaline Phosphatase 106 U/L (39-117); Anion Gap 18 (12-20); Aspartate Amino Transferase 30 U/L (5-37); Bilirubin Direct 0.3 mg/dL (0.0-0.5); Bilirubin Total 0.6 mg/dL (0.0-1.0); Blood Urea Nitrogen 10 mg/dL (9-16); Carbon Dioxide 20 mmol/L (22-29); Chloride 101 mmol/L (96-108); Creatinine Clr Calc Pharmacy 138.1; Estimated Glomerular Filt Rate > 60; Glucose Random 258 mg/dL (60-115); Lipase 16 U/L (8-78); Potassium 3.5 mmol/L (3.3-5.1); Sodium 135 mmol/L (135-145); Total Protein 7.3 g/dL (6.5-8.0)
[2020-11-07 02:01] LABS: Troponin-I High Sensitivity 21.6 ng/L (<3.5-35.0)
[2020-11-07 02:10] VITALS: BP 124/74; PULSE 103; RESP 18; O2SAT 94
[2020-11-07 02:47] LABS: Ethanol 235 mg/dL
[2020-11-07 03:56] VITALS: BP 127/76; PULSE 119; RESP 20; O2SAT 94
[2020-11-07 06:11] VITALS: BP 142/81; PULSE 112; RESP 20; O2SAT 96
[2020-11-07 07:32] LABS: Glucose, Whole Blood 245 mg/dL (60-115)
== END 2020-11-07 07:44 | disposition home or self-care (01) ==
PROVIDERS: Nurse Practitioner Family; Emergency Provider Student in an Organized Health Care Education/Training Program; PCP Family Medicine
DX: F10.129 Alcohol abuse with intoxication, unspecified (principal); Y90.9 Presence of alcohol in blood, level not specified; E11.9 Type 2 diabetes mellitus without complications; I11.0 Hypertensive heart disease with heart failure; I50.9 Heart failure, unspecified; I48.91 Unspecified atrial fibrillation; Z79.82 Long term (current) use of aspirin; Z79.84 Long term (current) use of oral hypoglycemic drugs; Z79.899 Other long term (current) drug therapy
CPT/HCPCS: 36415; 80048; 80076; 80307; 81001; 82077; 82947; 83690; 84484; 85025; 85730; 93005; 96374; 99284

== ENCOUNTER 2020-11-09 15:01 | Inpatient (IN) | payer MEDICARE, MEDICAID, SELFPAY ==
[2020-11-09] VITALS (10 sets, daily range): BP systolic 137–189; BP diastolic 73–97; PULSE 98–130; RESP 16–34; TEMP 36.2; O2SAT 92–96; BMI 29.9
--- NOTE | ~2020-11-09 | XR_ITS ---
EXAMINATION: PORTABLE CHEST 1 VIEW CLINICAL INFORMATION: eval for edema . COMPARISON: 11/01/2020. TECHNIQUE: Portable frontal view of the chest was obtained. FINDINGS: The lungs are mildly hypoexpanded with chronic appearing coarsened reticular markings again seen bilaterally. Mild basilar markings likely reflect component of atelectasis. No focal infiltrate, effusion, edema, or pneumothorax. Cardiac and mediastinal silhouettes are within normal limits for technique. No acute bony abnormality seen. XR/XR chest 1V IMPRESSION: Mildly hypoexpanded with chronic appearing changes similar to the 11/01/2020 study with mild bibasilar markings likely reflecting a component of atelectasis. There is central vascular prominence but no overt edema
[2020-11-09 15:53] LABS: Glucose, Whole Blood 400 mg/dL (60-115)
--- NOTE | 2020-11-09 15:58 | ED.ALCOHOL ---
HPI - Alcohol General Chief Complaint: ETOH/Substance Use Stated Complaint: hyperglycemia Time Seen by Provider: 11/09/20 15:10 History of Present Illness HPI narrative: Patient has a long history of alcohol. Presents today with altered mental status. Patient unable to give detailed history. complaint: alcohol intoxication Related Data Home Medications Medication Instructions Recorded Confirmed Lantus Solostar U-100 Insulin 6 unit SUBCUT QAM 09/11/20 11/07/20 atorvastatin 1 tab PO BEDTIME 09/11/20 11/07/20 gabapentin 1 cap PO TID 09/11/20 11/07/20 metformin 1 tab PO BID 09/11/20 11/07/20 trazodone 1 tab PO BEDTIME 09/11/20 11/07/20 Previous Rx's Medication Instructions Recorded furosemide [Lasix] 40 mg PO BID 30 Days #60 tab 09/14/20 aspirin 81 mg PO DAILY #30 tab 11/04/20 folic acid 1 mg PO DAILY #30 tab 11/04/20 metoprolol tartrate 75 mg PO BID 30 Days #180 tab 11/04/20 thiamine mononitrate (vit B1) 100 mg PO DAILY #30 tab 11/04/20 Allergies Allergy/AdvReac Type Severity Reaction Status Date / Time Penicillins [PCN] Allergy Unknown UNKNOWN Verified 09/03/20 16:05 Review of Systems Review of Systems: Unable to obtain review of systems secondary to patient's condition PMFSH Past Medical History Medical History A-fib Alcohol use disorder, severe, dependence Atrial fibrillation, rapid CAD (coronary artery disease) Cardiomyopathy CHF (congestive heart failure) Cirrhosis Depression Diabetes ETOH abuse HTN (hypertension) Social History Social History Household Members: None Housing: Homeless Housing Other:: rents room Do you presently have visiting nurse or other home services: No Alcohol intake: current Alcohol intake frequency: 3 or more drinks per day Alcohol type: beer, wine and hard liquor Patient Tobacco Use Status: Never used Tobacco Second Hand Smoke Exposure: No Advance Directives: No Advance Directives Information Provided: No service: Yes Current occupational status: disabled Physical Exam Vital Signs: Vital Signs: Last Vital Signs Pulse 130 H 11/09/20 15:16 Resp 22 H 11/09/20 15:16 BP 158/87 H 11/09/20 15:16 Pulse Ox 93 11/09/20 15:16 Body Mass Index 29.9 Appearance: Lethargic No acute distress. Eyes: Pupils equal, round and reactive to light. ENT: Pharynx normal. Neck: Normal inspection. Neck supple. No lymph nodes noted. No crepitus CVS: Normal heart rate and rhythm. Pulses normal. Normal S1 and S2 Respiratory: No respiratory distress. Breath sounds normal. No Wheezing. No rales Abdomen: Soft and nontender. No rigidity. No distention. good BS x4 Skin: Skin warm and dry. Normal skin color. Normal skin turgor. Extremities: No lower extremity edema. Neurovascular intact to all extremities. No Lacerations. No Rash Neuro: Sleeping moving all extremities MDM - Alcohol MDM Narrative Medical decision making narrative: Grossly intoxicated. Patient's heart rate is 130 question patient is dehydrated as patient's sugars 400. Will check electrolytes will check alcohol level. IV fluids ordered. Additional doses of insulin given. Will monitor carefully. Lab Data Labs: Lab Results 11/09/20 Range/Units 15:49 POC Glucose 400 H* (60-115) mg/dL Discharge Plan Discharge Clinical Impression: ETOH abuse, Diabetes Prescriptions: No Action atorvastatin 40 mg tablet 1 tab PO BEDTIME RF: 0 trazodone 50 mg tablet 1 tab PO BEDTIME RF: 0 gabapentin 400 mg capsule 1 cap PO TID RF: 0 metformin 1,000 mg tablet 1 tab PO BID RF: 0 Lantus Solostar U-100 Insulin 100 unit/mL (3 mL) insulin pen 6 unit subcut QAM RF: 0 furosemide [Lasix] 40 mg tablet 40 mg PO BID 30 Days Qty: 60 RF: 0 aspirin 81 mg Tablet,Delayed Release (Dr/Ec) 81 mg PO DAILY Qty: 30 RF: 0 folic acid 1 mg Tablet 1 mg PO DAILY Qty: 30 RF: 0 thiamine mononitrate (vit B1) 100 mg Tablet 100 mg PO DAILY Qty: 30 RF: 0 metoprolol tartrate 25 mg Tablet 75 mg PO BID 30 Days Qty: 180 RF: 0
[2020-11-09 16:09] LABS: MANUAL DIFF FLAG NO
[2020-11-09] MEDS: Insulin Regular, Human 100 UNIT/ML 3 ML VIAL IVPUSH (16:10)
[2020-11-09 16:11] LABS: Basophils Percent Auto 0.5 % (0-2); Eosinophils Absolute Auto 0.2 X10*3/uL (0.0-0.4); Eosinophils Percent Auto 2.5 % (0-4); Hematocrit 34.7 % (42-52); Hemoglobin 11.8 g/dl (14.0-18.0); Imm Gran Abs Auto 0.05 X10*3/uL (0.00-0.03); Imm Gran Pct Auto 0.8 % (0.0-0.4); Lymphocytes Absolute Auto 1.1 X10*3/uL (1.2-4.9); Lymphocytes Percent Auto 17.8 % (20-40); Mean Corpuscular Hemoglobin 32.2 pg (27.0-33.0); Mean Corpuscular Volume 94.6 fL (80-98); Mean Platelet Volume 9.8 fL (9.4-12.4); Monocytes Absolute Auto 0.6 X10*3/uL (0.1-1.2); Monocytes Percent Auto 9.3 % (2-11); Neutrophils Absolute Auto 4.4 X10*3/uL (2.0-8.3); Neutrophils Percent Auto 69.1 % (45-73); Platelet Count 137 X10*3/uL (160-400); Red Blood Count 3.67 X10*6/uL (4.60-5.80); White Blood Count 6.4 X10*3/uL (4.8-10.8)
[2020-11-09] MEDS: 0.9 % Sodium Chloride 1,000 ML 999 ML IV (16:28)
[2020-11-09 16:32] LABS: Ethanol 323 mg/dL
[2020-11-09 16:40] LABS: Alanine Aminotransferase 25 U/L (0-40); Albumin Level 3.8 g/dL (3.5-5.0); Alkaline Phosphatase 124 U/L (39-117); Anion Gap 16 (12-20); Aspartate Amino Transferase 26 U/L (5-37); Bilirubin Total 0.4 mg/dL (0.0-1.0); Blood Urea Nitrogen 7 mg/dL (9-16); Carbon Dioxide 20 mmol/L (22-29); Chloride 103 mmol/L (96-108); Creatinine Clr Calc Pharmacy 115.2; Estimated Glomerular Filt Rate > 60; Glucose Random 454 mg/dL (60-115); Potassium 4.2 mmol/L (3.3-5.1); Sodium 135 mmol/L (135-145); Total Protein 7.6 g/dL (6.5-8.0)
--- NOTE | 2020-11-09 16:40 | ECG_ITS ---
Test Reason : rapid afib Blood Pressure : / mmHG Vent. Rate : 147 BPM Atrial Rate : 138 BPM P-R Int : 000 ms QRS Dur : 094 ms QT Int : 276 ms P-R-T Axes : 000 -77 071 degrees QTc Int : 431 ms Atrial fibrillation with rapid ventricular response Left axis deviation Cannot rule out Inferior infarct (cited on or before 02-JUL-2016) Anterior infarct (cited on or before 02-JUL-2016) Abnormal ECG When compared with ECG of 06-NOV-2020 22:41, No significant change was found Referred By: Cat Joy Electronically Signed By:COLIN LLAMAS MD
[2020-11-09] MEDS: Metoprolol Succinate ER 50 MG TAB.ER.24H PO (16:51)
[2020-11-09] MEDS: dilTIAZem HCL 50 MG/10 ML VIAL 10 MG IVPUSH ×2 (16:59→17:55)
[2020-11-09 18:18] LABS: Glucose, Whole Blood 339 mg/dL (60-115)
[2020-11-09] MEDS: dilTIAZem HCL 125 MG in 0.9 % Sodium Chloride 100 ML IVCONT (19:18)
[2020-11-09 19:31] LABS: B Type Natriuretic Peptide 67 pg/mL (<100)
[2020-11-09] MEDS: Magnesium Sulfate/H2O 2 GM/50 ML PIGGYBACK IV (19:53)
[2020-11-09 20:20] LABS: COVID-19 Test Negative (Negative)
[2020-11-09] MEDS: Enoxaparin Sodium 40 MG/0.4 ML SYRINGE SUBCUT (20:35)
[2020-11-09] MEDS: Famotidine/PF 20 MG/2 ML VIAL IVPUSH (20:43)
[2020-11-09] MEDS: Insulin Glargine,Hum.rec.anlog 100 UNIT/ML 10 ML VIAL 10 UNIT SUBCUT (20:48)
--- NOTE | 2020-11-09 20:53 | PHA.MEDREC ---
Pharmacy Consult ? Medication Reconciliation Pharmacy has completed the medication reconciliation. Unable to confirm meds with patient as he is intoxicated. Meds confirmed with refill history. Lantus dose not verified
--- NOTE | 2020-11-09 21:01 | PC.NURSE ---
PT BECOMING MORE ALERT AT THIS TIME, ORIENTED. TOLERATING CARDIZEM GTT, HR NOW IN 90S
[2020-11-09 21:04] LABS: Amphetamine Screen Urine Not Detected (Not Detect); Barbiturates, Urine POSITIVE (Not Detect); Benzodiazepines Screen Urine Not Detected (Not Detect); Cannabinoid Screen Urine Not Detected (Not Detect); Cocaine Screen Urine Not Detected (Not Detect); Opiate Screen Urine Not Detected (Not Detect); Phencyclidine Screen Urine Not Detected (Not Detect)
--- NOTE | 2020-11-09 21:34 | PM.IMHP ---
History of Present Illness Date of Service: 11/09/20 Chief Complaint: Alcohol intoxication 59-year-old male with a past medical history of hypertension, hyperlipidemia, diabetes, CAD, CHF, AFib-not on anticoagulation, active alcohol abuse presented to the hospital with chief complaint of confusion/alcohol intoxication. Patient denies any chest pain palpitations lightheadedness or dizziness. Denies any fever chills cough. Denies any GI or symptoms. Review of all other systems is negative except mentioned above ER course: Per ER team patient on presentation noted to be intoxicated, not giving good history; on the monitor patient noted to be in AFib with RVR with heart rate in a wound that is to 140s; the patient received metoprolol succinate followed by diltiazem drip; patient heart rate gradually Patient initially on presentation noted have hyperglycemia, not in DKA; given regular insulin IV push. Admitted for further management. [facility] Medical History A-fib Alcohol use disorder, severe, dependence Atrial fibrillation, rapid CAD (coronary artery disease) Cardiomyopathy CHF (congestive heart failure) Cirrhosis Depression Diabetes ETOH abuse HTN (hypertension) Social History Household Members: None Housing: Homeless Housing Other:: rents room Do you presently have visiting nurse or other home services: No Unable to assess alcohol history related to: Refusing to respond Alcohol intake: current Alcohol intake frequency: 3 or more drinks per day Alcohol type: beer and hard liquor Patient Tobacco Use Status: Current everyday Tobacco user Second Hand Smoke Exposure: No service: No Current occupational status: unemployed and disabled Meds Allergies Allergy/AdvReac Type Severity Reaction Status Date / Time Penicillins [PCN] Allergy Unknown UNKNOWN Verified 09/03/20 16:05 Active Medications: Current Medications Generic Name Dose Route Start Last Admin Trade Name Freq PRN Reason Stop Dose Admin Acetaminophen 650 mg 11/09/20 20:05 Acetaminophen 325 Mg Tablet PO Q6H PRN Pain, Mild (Pain Scale 1-3) Aspirin 81 mg 11/10/20 09:00 Aspirin Enteric Coated 81 Mg Tablet.Dr PO DAILY [facility] Atorvastatin Calcium 40 mg 11/10/20 21:00 Atorvastatin Calcium 40 Mg Tablet PO BEDTIME [facility] Enoxaparin Sodium 40 mg 11/09/20 21:00 11/09/20 20:35 Enoxaparin Sodium 40 Mg/0.4 Ml Syringe SUBCUT 40 mg Q24H FRNAKY Administration Famotidine 20 mg 11/09/20 21:00 11/09/20 20:43 Famotidine/Pf 20 Mg/2 Ml Vial IVPUSH 20 mg BID FRANKY Administration Folic Acid 1 mg 11/10/20 09:00 Folic Acid 1 Mg Tablet PO 11/13/20 08:59 DAILY [facility] Folic Acid 1 mg 11/10/20 09:00 Folic Acid 1 Mg Tablet PO DAILY [facility] [place] Furosemide 40 mg 11/10/20 09:00 Furosemide 40 Mg Tablet PO BID [facility] Protocol Gabapentin 400 mg 11/10/20 09:00 Gabapentin 400 Mg Capsule PO TID [facility] Diltiazem HCl 125 mg/ Sodium 125 mls @ 0 mls/hr 11/09/20 18:45 11/09/20 19:49 Chloride IVCONT 15 mg/hr .Q0M [facility] 15 mls/hr Titration Protocol Per Protocol Insulin Glargine 10 unit 11/09/20 21:00 11/09/20 20:48 Insulin Glargine,Hum.Rec.Anlog 100 Unit/Ml 10 Ml Vial SUBCUT 10 unit BEDTIME [facility] Administration Insulin Human Lispro 0 unit 11/09/20 21:00 Insulin Lispro 100 Unit/Ml 3 Ml Vial SUBCUT QIDACHS [facility] Protocol Lorazepam 1 mg 11/09/20 20:14 Lorazepam 1 Mg Tablet PO 11/13/20 20:13 Q4H PRN Breakthrough alcohol withdrawa Lorazepam 1 mg 11/09/20 20:15 Lorazepam 2 Mg/Ml Vial IVPUSH Q2H PRN ciwa>12 Magnesium Hydroxide 30 ml 11/09/20 20:05 Milk Of Magnesia 30 Ml Oral.Susp PO DAILY PRN Constipation Melatonin 6 mg 11/09/20 20:05 Melatonin 3 Mg Tablet PO BEDTIME PRN Insomnia Metoprolol Tartrate 75 mg 11/10/20 09:00 Metoprolol Tartrate 25 Mg Tablet PO BID [facility] [place] Protocol Multivitamins 1 tab 11/10/20 09:00 B-Complex With Vitamin C Tablet PO DAILY [facility] [place] Pharmacy Consult 1 each 11/09/20 19:52 Consult Rx Perform Med Rec MISCELLANE ONCE PRN Consult order Sodium Chloride 3 ml 11/10/20 00:00 0.9 % Sodium Chloride Flush 3 Ml Syringe IVFLUSH QSHIFT [facility] Thiamine HCl 100 mg 11/10/20 09:00 Thiamine Hcl 100 Mg Tablet PO 11/13/20 08:59 DAILY FRANKY Thiamine HCl 100 mg 11/10/20 09:00 Thiamine Hcl 100 Mg Tablet PO DAILY [facility] [place] Trazodone HCl 50 mg 11/10/20 21:00 Trazodone Hcl 50 Mg Tablet PO BEDTIME [facility] [place] Home Medications Medication Instructions Recorded Confirmed Last Taken Type atorvastatin 40 mg tablet 1 tab PO BEDTIME 09/11/20 11/16/20 11/14/20 History gabapentin 400 mg capsule 1 cap PO TID 09/11/20 11/16/20 11/14/20 History metformin 1,000 mg tablet 1 tab PO BID 09/11/20 11/16/20 11/14/20 History trazodone 50 mg tablet 1 tab PO BEDTIME PRN 09/11/20 11/16/20 11/01/20 History metoprolol tartrate 50 mg tablet 1 tab PO BID 11/16/20 11/16/20 11/14/20 History multivitamin 1 tab PO DAILY 11/16/20 11/16/20 11/14/20 History Physical Exam Vital Signs and Narrative: Vital Signs: Last Vital Signs Temp 97.1 F 11/09/20 17:41 Pulse 98 11/09/20 21:01 Resp 34 H 11/09/20 21:01 BP 137/89 11/09/20 21:01 Pulse Ox 93 11/09/20 21:01 Body Mass Index 29.9 Gen: Appears be in no acute distress HEENT: NCAT, Moist mucosa. Pulmonary: Vesicular breath sounds, fair air entry CVS: Normal S1-S2 Abdomen: BS+, Soft, Nontender Extremities: Warm well perfused Neuro: Alert and awake. Results Labs CBC and Chem 7: 11/12/20 05:43 11/12/20 05:43 Labs: Laboratory Results - last 24 hr 11/09/20 11/09/20 11/09/20 15:49 16:04 16:04 MCV 94.6 MCH 32.2 MCHC 34.0 RDW 14.0 Plt Count 137 L MPV 9.8 Immature Gran % (Auto) 0.8 H Neut % (Auto) 69.1 Lymph % (Auto) 17.8 L Colbert % (Auto) 9.3 Eos % (Auto) 2.5 Baso % (Auto) 0.5 Lymph # (Auto) 1.1 L Colbert # (Auto) 0.6 Eos # (Auto) 0.2 Baso # (Auto) 0.0 Abs Immat Gran (auto) 0.05 H Absolute Neuts (auto) 4.4 Absolute Nucleated RBC 0.000 Nucleated RBC % (auto) 0.0 Anion Gap 16 Estim Creat Clear Calc 115.2 Estimated GFR > 60 POC Glucose 400 H* Random Glucose 454 H* Calcium 9.0 Total Bilirubin 0.4 AST 26 ALT 25 Alkaline Phosphatase 124 H Troponin I High Sens B-Natriuretic Peptide Total Protein 7.6 Albumin 3.8 Urine Opiates Screen Ur Barbiturates Screen Ur Phencyclidine Scrn Ur Amphetamines Screen U Benzodiazepines Scrn Urine Cocaine Screen U Marijuana (THC) Screen Ethyl Alcohol COVID-19 (CHRISTI) COVID-ContactMonkey 11/09/20 11/09/20 11/09/20 16:04 16:04 18:15 MCV MCH MCHC RDW Plt Count MPV Immature Gran % (Auto) Neut % (Auto) Lymph % (Auto) Colbert % (Auto) Eos % (Auto) Baso % (Auto) Lymph # (Auto) Colbert # (Auto) Eos # (Auto) Baso # (Auto) Abs Immat Gran (auto) Absolute Neuts (auto) Absolute Nucleated RBC Nucleated RBC % (auto) Anion Gap Estim Creat Clear Calc Estimated GFR POC Glucose 339 H Random Glucose Calcium Total Bilirubin AST ALT Alkaline Phosphatase Troponin I High Sens B-Natriuretic Peptide Total Protein Albumin Urine Opiates Screen Not Detected Ur Barbiturates Screen POSITIVE H Ur Phencyclidine Scrn Not Detected Ur Amphetamines Screen Not Detected U Benzodiazepines Scrn Not Detected Urine Cocaine Screen Not Detected U Marijuana (THC) Screen Not Detected Ethyl Alcohol 323 H* COVID-19 (CHRISTI) COVID-[employer]Monkey 11/09/20 11/09/20 18:43 19:57 MCV MCH MCHC RDW Plt Count MPV Immature Gran % (Auto) Neut % (Auto) Lymph % (Auto) Colbert % (Auto) Eos % (Auto) Baso % (Auto) Lymph # (Auto) Colbert # (Auto) Eos # (Auto) Baso # (Auto) Abs Immat Gran (auto) Absolute Neuts (auto) Absolute Nucleated RBC Nucleated RBC % (auto) Anion Gap Estim Creat Clear Calc Estimated GFR POC Glucose Random Glucose Calcium Total Bilirubin AST ALT Alkaline Phosphatase Troponin I High Sens 27.0 B-Natriuretic Peptide 67 Total Protein Albumin Urine Opiates Screen Ur Barbiturates Screen Ur Phencyclidine Scrn Ur Amphetamines Screen U Benzodiazepines Scrn Urine Cocaine Screen U Marijuana (THC) Screen Ethyl Alcohol COVID-19 (CHRISTI) Negative COVID-19 Clin Com See Note Imaging Radiologist's Impressions: Impressions Chest X-Ray 11/09/20 18:37 IMPRESSION: Mildly hypoexpanded with chronic appearing changes similar to the 11/01/2020 study with mild bibasilar markings likely reflecting a component of atelectasis. There is central vascular prominence but no overt edema Assessment and Plan (1) Atrial fibrillation with rapid ventricular response: Status: Resolved 60-year-old male with a past medical history of hypertension, hyperlipidemia, diabetes, CAD, CHF, AFib-not on anticoagulation presented to the hospital with a chief complaint of alcohol abuse/intoxication; noted to be in AFib with RVR. Admitted for further management. Alcohol abuse/intoxication: Will monitor the patient on CIWA protocol. I am in folate and multivitamins. AFib with RVR: Patient is on aspirin at home. Patient not on anticoagulation at home. Continue home metoprolol 75 mg b.i.d.; Patient is currently on diltiazem drip-heart rate gradually improving; will titrate down eventually. Cardiology consult Monitor on telemetry History of CHF: Currently stable. Continue home Lasix History of diabetes: Hold home metformin. Insulin sliding scale place Lantus 10 units at bedtime. Medication noncompliance: Patient would benefit VNA services at the time of the discharge. A DVT prophylaxis: Lovenox Code status: Full code Quality Stroke Does the patient have a stroke diagnosis?: No VTE Prior VTE?: No VTE Risk Level:: Medical - moderate - high VTE Device Contraindication: N/A - Device Ordered VTE Drug Contraindication: N/A - Med Ordered
[2020-11-09 22:30] LABS: Glucose, Whole Blood 318 mg/dL (60-115)
[2020-11-09 22:30] LABS: Glucose, Whole Blood 325 mg/dL (60-115)
--- NOTE | 2020-11-09 23:39 | PC.NURSE ---
DILT DRIP STOPPED BY PREVIOUS RN. PT CONTINUES TO REMAIN AFIB ON THE MONITOR NOW RATE 78-118. PT IS SLEEPING NOW, EASILY AROUSABLE.
[2020-11-10] VITALS (12 sets, daily range): BP systolic 124–176; BP diastolic 56–90; PULSE 68–105; RESP 16–31; TEMP 36.2–37.1; O2SAT 95–99
[2020-11-10] MEDS: LORazepam 2 MG/ML VIAL 1 MG IVPUSH (01:50)
[2020-11-10 07:18] LABS: Glucose, Whole Blood 276 mg/dL (60-115)
[2020-11-10] MEDS: Insulin Lispro 100 UNIT/ML 3 ML VIAL SUBCUT ×4 (07:22→21:33)
[2020-11-10 07:25] LABS: MANUAL DIFF FLAG NO
[2020-11-10 07:28] LABS: Basophils Percent Auto 0.3 % (0-2); Eosinophils Absolute Auto 0.1 X10*3/uL (0.0-0.4); Eosinophils Percent Auto 1.6 % (0-4); Hematocrit 33.1 % (42-52); Hemoglobin 11.1 g/dl (14.0-18.0); Imm Gran Abs Auto 0.04 X10*3/uL (0.00-0.03); Imm Gran Pct Auto 0.6 % (0.0-0.4); Lymphocytes Absolute Auto 0.7 X10*3/uL (1.2-4.9); Mean Corpuscular HGB Conc 33.5 g/dl (31.0-36.0); Mean Corpuscular Volume 95.4 fL (80-98); Mean Platelet Volume 9.8 fL (9.4-12.4); Monocytes Absolute Auto 0.6 X10*3/uL (0.1-1.2); Monocytes Percent Auto 8.5 % (2-11); Neutrophils Absolute Auto 5.3 X10*3/uL (2.0-8.3); Platelet Count 116 X10*3/uL (160-400); Red Blood Count 3.47 X10*6/uL (4.60-5.80); Red Cell Distribution Width 14.3 % (11.0-16.0); White Blood Count 6.7 X10*3/uL (4.8-10.8)
[2020-11-10 08:00] LABS: Anion Gap 14 (12-20); Blood Urea Nitrogen 7 mg/dL (9-16); Calcium 8.5 mg/dL (8.4-10.2); Carbon Dioxide 21 mmol/L (22-29); Chloride 106 mmol/L (96-108); Creatinine Clr Calc Pharmacy 145.2; Estimated Glomerular Filt Rate > 60; Glucose Random 293 mg/dL (60-115); Potassium 4.5 mmol/L (3.3-5.1); Sodium 136 mmol/L (135-145)
[2020-11-10 08:17] LABS: Magnesium 1.9 mg/dL (1.6-2.6)
--- NOTE | 2020-11-10 08:47 | PC.NURSE ---
pt seen by Dr. perez (hosp), pt aware of plan of care.
--- NOTE | 2020-11-10 08:49 | PC.NURSE ---
note written in error by migdalia zamudio (dinorah).
[2020-11-10] MEDS: Famotidine/PF 20 MG/2 ML VIAL IVPUSH ×2 (09:08→21:12)
[2020-11-10] MEDS: Gabapentin 400 MG CAPSULE PO ×3 (09:09→21:11)
[2020-11-10] MEDS: Aspirin Enteric Coated 81 MG TABLET.DR PO (09:09)
[2020-11-10] MEDS: Furosemide 40 MG TABLET PO ×2 (09:09→21:11)
[2020-11-10] MEDS: Metoprolol Tartrate 25 MG TABLET 75 MG PO (09:09)
[2020-11-10] MEDS: Folic Acid 1 MG TABLET PO (09:09)
[2020-11-10] MEDS: Thiamine HCL 100 MG TABLET PO (09:09)
--- NOTE | 2020-11-10 09:38 | P.CDIC_ITS ---
CDI Concurrent Query Service Date: 11/10/20 Documentation Clarification: Please clarify if you are treating a proba ble/suspected/likely or confirmed: If possible, please provide further specificity regarding atrial fibrillation, such as: -Paroxysmal atrial fibrillation: terminates spontaneously or with intervention within 7 days of onset. -Persistent atrial fibrillation: episodes of continuous AF that last more than 7 days and do not self-terminate. -Long lasting persistent atrial fibrillation: episodes of continuous AF that last more than 12 months -Chronic or Permanent atrial fibrillation: when a decision has been made to accept the presence of AF and there is no further attempt to restore or maintain sinus rhythm. -Other (please specify) -Unable to determine Likely Persistent A. Fib Provider Response: Other Other Diagnosis: Likely Persistant A. Fib PLEASE DO NOT DELETE/MODIFY EXISTING CONTENT Additional information is needed in order to code to the highest accuracy and appropriate Severity of Illness (SOI). Please clarify the information noted below in your progress notes and discharge summary. Risk Factors/Clinical Indicators/Treatments Admit with Atrial Fibrillation RVR Treated with Kyle miller Cardiology consult pending CDS: Camila Hector RN Contact Number: [phone] Please Review the information above and exercise your independent professional judgment in responding to the query. If you concur, pleas document in the PROGRESS NOTES and DISCHARGE SUMMARY. If you do not agree with the query, please document in the query above. THIS QUERY IS PART OF THE PERMANENT MEDICAL RECORD
--- NOTE | 2020-11-10 10:03 | HO.PM.IMPN ---
Subjective Subjective Date of Service: 11/10/20 Interval History: Patient seen and examined this morning with laboratory technical specialist Patient reports he feels okay, endorses some anxiety Reports he has been drinking heavily for the last 2-3 weeks. ROS General - no fevers or chills Cardiovascular - no chest pain Respiratory - no shortness of breath or cough Abdominal- no abdominal pain, nausea, vomiting, diarrhea Neuro/Psych -anxiety Physical Exam Vital Signs: Vital Signs: Last Vital Signs Temp 98.7 F 11/10/20 08:52 Pulse 95 11/10/20 09:09 Resp 31 H 11/10/20 08:52 BP 164/86 H 11/10/20 09:09 Pulse Ox 97 11/10/20 08:52 Body Mass Index 29.9 Const: Other: General - appear anxious Cardiovascular -IRR, 2+ pitting edema b/l Lungs - normal respiratory effort, clear to auscultation bilaterally, no wheezing Abdomen - soft, nontender, no rebound or guarding Neuro - awake and alert, no focal deficits; +bilateral tremors Objective Data Current Medications Generic Name Dose Route Start Last Admin Trade Name Freq PRN Reason Stop Dose Admin Acetaminophen 650 mg 11/09/20 20:05 Acetaminophen 325 Mg Tablet PO Q6H PRN Pain, Mild (Pain Scale 1-3) Aspirin 81 mg 11/10/20 09:00 11/10/20 09:09 Aspirin Enteric Coated 81 Mg Tablet. PO 81 mg DAILY [facility] Administration Atorvastatin Calcium 40 mg 11/10/20 21:00 Atorvastatin Calcium 40 Mg Tablet PO BEDTIME [facility] Enoxaparin Sodium 40 mg 11/09/20 21:00 11/09/20 20:35 Enoxaparin Sodium 40 Mg/0.4 Ml Syringe SUBCUT 40 mg Q24H [facility]Y Administration Famotidine 20 mg 11/09/20 21:00 11/10/20 09:08 Famotidine/Pf 20 Mg/2 Ml Vial IVPUSH 20 mg BID FR[facility]Y Administration Folic Acid 1 mg 11/10/20 09:00 11/10/20 09:09 Folic Acid 1 Mg Tablet PO 1 mg DAILY [facility]Y Administration Furosemide 40 mg 11/10/20 09:00 11/10/20 09:09 Furosemide 40 Mg Tablet PO 40 mg BID [facility]Y Administration Protocol Gabapentin 400 mg 11/10/20 09:00 11/10/20 09:09 Gabapentin 400 Mg Capsule PO 400 mg TID FRANKY Administration Insulin Glargine 10 unit 11/09/20 21:00 11/09/20 20:48 Insulin Glargine,Hum.Rec.Anlog 100 Unit/Ml 10 Ml Vial SUBCUT 10 unit BEDTIME [facility] Administration Insulin Human Lispro 0 unit 11/09/20 21:00 11/10/20 07:22 Insulin Lispro 100 Unit/Ml 3 Ml Vial SUBCUT 6 unit QIDACHS [facility] Administration Protocol Magnesium Hydroxide 30 ml 11/09/20 20:05 Milk Of Magnesia 30 Ml Oral.Susp PO DAILY PRN Constipation Melatonin 6 mg 11/09/20 20:05 Melatonin 3 Mg Tablet PO BEDTIME PRN Insomnia Metoprolol Tartrate 75 mg 11/10/20 09:00 11/10/20 09:09 Metoprolol Tartrate 25 Mg Tablet PO 75 mg BID [facility] Administration Protocol Multivitamins 1 tab 11/10/20 09:00 11/10/20 09:09 B-Complex With Vitamin C Tablet PO 1 tab DAILY [facility] Administration Pharmacy Consult 1 each 11/09/20 19:52 Consult Rx Perform Med Rec MISCELLANE ONCE PRN Consult order Pharmacy Consult 1 each 11/10/20 09:48 Consult Rx Etoh Phenob Dosing MISCELLANE 11/10/20 09:49 ONCE ONE Protocol Sodium Chloride 3 ml 11/10/20 00:00 11/10/20 08:09 0.9 % Sodium Chloride Flush 3 Ml Syringe IVFLUSH Not Given QSHIFT [facility] Thiamine HCl 100 mg 11/10/20 09:00 11/10/20 09:09 Thiamine Hcl 100 Mg Tablet PO 100 mg DAILY [facility] Administration Trazodone HCl 50 mg 11/10/20 21:00 Trazodone Hcl 50 Mg Tablet PO BEDTIME [facility] Labs CBC & Chem 7: 11/10/20 07:22 11/10/20 07:22 Labs: Laboratory Results - last 24 hr 11/09/20 11/09/20 11/09/20 15:49 16:04 16:04 WBC 6.4 RBC 3.67 L Hgb 11.8 L Hct 34.7 L MCV 94.6 MCH 32.2 MCHC 34.0 RDW 14.0 Plt Count 137 L MPV 9.8 Immature Gran % (Auto) 0.8 H Neut % (Auto) 69.1 Lymph % (Auto) 17.8 L [place] % (Auto) 9.3 Eos % (Auto) 2.5 Baso % (Auto) 0.5 Lymph # (Auto) 1.1 L [place] # (Auto) 0.6 Eos # (Auto) 0.2 Baso # (Auto) 0.0 Abs Immat Gran (auto) 0.05 H Absolute Neuts (auto) 4.4 Absolute Nucleated RBC 0.000 Nucleated RBC % (auto) 0.0 Sodium 135 Potassium 4.2 Chloride 103 Carbon Dioxide 20 L Anion Gap 16 BUN 7 L Creatinine 0.92 Estim Creat Clear Calc 115.2 Estimated GFR > 60 POC Glucose 400 H* Random Glucose 454 H* Calcium 9.0 Magnesium Total Bilirubin 0.4 AST 26 ALT 25 Alkaline Phosphatase 124 H Troponin I High Sens B-Natriuretic Peptide Total Protein 7.6 Albumin 3.8 Urine Opiates Screen Ur Barbiturates Screen Ur Phencyclidine Scrn Ur Amphetamines Screen U Benzodiazepines Scrn Urine Cocaine Screen U Marijuana (THC) Screen Ethyl Alcohol COVID-19 ([facility]) COVID-19 [employer] 11/09/20 11/09/20 11/09/20 16:04 16:04 18:15 WBC RBC Hgb Hct MCV MCH MCHC RDW Plt Count MPV Immature Gran % (Auto) Neut % (Auto) Lymph % (Auto) [place] % (Auto) Eos % (Auto) Baso % (Auto) Lymph # (Auto) [place] # (Auto) Eos # (Auto) Baso # (Auto) Abs Immat Gran (auto) Absolute Neuts (auto) Absolute Nucleated RBC Nucleated RBC % (auto) Sodium Potassium Chloride Carbon Dioxide Anion Gap BUN Creatinine Estim Creat Clear Calc Estimated GFR POC Glucose 339 H Random Glucose Calcium Magnesium Total Bilirubin AST ALT Alkaline Phosphatase Troponin I High Sens B-Natriuretic Peptide Total Protein Albumin Urine Opiates Screen Not Detected Ur Barbiturates Screen POSITIVE H Ur Phencyclidine Scrn Not Detected Ur Amphetamines Screen Not Detected U Benzodiazepines Scrn Not Detected Urine Cocaine Screen Not Detected U Marijuana (THC) Screen Not Detected Ethyl Alcohol 323 H* COVID-19 ([facility]) COVID-Devex 11/09/20 11/09/20 11/09/20 18:43 19:57 20:33 WBC RBC Hgb Hct MCV MCH MCHC RDW Plt Count MPV Immature Gran % (Auto) Neut % (Auto) Lymph % (Auto) [place] % (Auto) Eos % (Auto) Baso % (Auto) Lymph # (Auto) [place] # (Auto) Eos # (Auto) Baso # (Auto) Abs Immat Gran (auto) Absolute Neuts (auto) Absolute Nucleated RBC Nucleated RBC % (auto) Sodium Potassium Chloride Carbon Dioxide Anion Gap BUN Creatinine Estim Creat Clear Calc Estimated GFR POC Glucose 325 H Random Glucose Calcium Magnesium Total Bilirubin AST ALT Alkaline Phosphatase Troponin I High Sens 27.0 B-Natriuretic Peptide 67 Total Protein Albumin Urine Opiates Screen Ur Barbiturates Screen Ur Phencyclidine Scrn Ur Amphetamines Screen U Benzodiazepines Scrn Urine Cocaine Screen U Marijuana (THC) Screen Ethyl Alcohol COVID-19 ([facility]) Negative COVID-19 [employer] See Note 11/09/20 11/10/20 11/10/20 22:24 07:14 07:22 WBC 6.7 RBC 3.47 L Hgb 11.1 L Hct 33.1 L MCV 95.4 MCH 32.0 MCHC 33.5 RDW 14.3 Plt Count 116 L MPV 9.8 Immature Gran % (Auto) 0.6 H Neut % (Auto) 78.0 H Lymph % (Auto) 11.0 L [place] % (Auto) 8.5 Eos % (Auto) 1.6 Baso % (Auto) 0.3 Lymph # (Auto) 0.7 L [place] # (Auto) 0.6 Eos # (Auto) 0.1 Baso # (Auto) 0.0 Abs Immat Gran (auto) 0.04 H Absolute Neuts (auto) 5.3 Absolute Nucleated RBC 0.000 Nucleated RBC % (auto) 0.0 Sodium Potassium Chloride Carbon Dioxide Anion Gap BUN Creatinine Estim Creat Clear Calc Estimated GFR POC Glucose 318 H 276 H Random Glucose Calcium Magnesium Total Bilirubin AST ALT Alkaline Phosphatase Troponin I High Sens B-Natriuretic Peptide Total Protein Albumin Urine Opiates Screen Ur Barbiturates Screen Ur Phencyclidine Scrn Ur Amphetamines Screen U Benzodiazepines Scrn Urine Cocaine Screen U Marijuana (THC) Screen Ethyl Alcohol COVID-19 ([facility]) COVID-Devex 11/10/20 11/10/20 07:22 07:22 WBC RBC Hgb Hct MCV MCH MCHC RDW Plt Count MPV Immature Gran % (Auto) Neut % (Auto) Lymph % (Auto) [place] % (Auto) Eos % (Auto) Baso % (Auto) Lymph # (Auto) [place] # (Auto) Eos # (Auto) Baso # (Auto) Abs Immat Gran (auto) Absolute Neuts (auto) Absolute Nucleated RBC Nucleated RBC % (auto) Sodium 136 Potassium 4.5 Chloride 106 Carbon Dioxide 21 L Anion Gap 14 BUN 7 L Creatinine 0.73 Estim Creat Clear Calc 145.2 Estimated GFR > 60 POC Glucose Random Glucose 293 H D Calcium 8.5 Magnesium 1.9 Total Bilirubin AST ALT Alkaline Phosphatase Troponin I High Sens B-Natriuretic Peptide Total Protein Albumin Urine Opiates Screen Ur Barbiturates Screen Ur Phencyclidine Scrn Ur Amphetamines Screen U Benzodiazepines Scrn Urine Cocaine Screen U Marijuana (THC) Screen Ethyl Alcohol COVID-19 ([facility]) COVID-19 Clin Com Quality Stroke Does the patient have a stroke diagnosis?: No VTE Prior VTE?: No VTE Risk Level:: Medical - moderate - high VTE Device Contraindication: N/A - Device Ordered VTE Drug Contraindication: N/A - Med Ordered Assessment and Plan (1) Atrial fibrillation with rapid ventricular response: Status: Acute Assessment and Plan: This is a 60-year-old male with a past medical history of systolic heart failure, atrial fibrillation with multiple episodes of rapid ventricular response, alcohol abuse and dependence with prior withdrawal symptoms and uncontrolled diabetes who presents to the hospital with complaints of alcohol intoxication. Unfortunately he has gone into rapid AFib. 1. AFib with RVR Suspected persistent AFib Discontinue Cardizem good in light of his known reduced EF Increases baseline metoprolol from 75 mg twice daily to 50 mg q.6 Not on anticoagulation due to his noncompliance and chronic alcoholism Does not appear to be in CHF at this time 2. Alcohol withdrawal and dependence likely contributing to above stop ativan, use phenobarb per protocol monitor lytes alcohol cessation as been advised will get CARE team cnsult 3. Uncontrolled DM due to non-compliance with meds basal + bolus 4. Chronic HFrEF continue baseline meds including diuretics Full Code DVT pptx, Lovenox
[2020-11-10] MEDS: PHENobarbitaL sodium 130 MG/ML VIAL 270 MG IM (11:11)
[2020-11-10 13:46] LABS: Glucose, Whole Blood 248 mg/dL (60-115)
[2020-11-10] MEDS: PHENobarbitaL sodium 130 MG/ML VIAL 203 MG IM ×2 (13:55→15:53)
--- NOTE | 2020-11-10 14:00 | PC.NURSE ---
NAD. ATE LUNCH NO COMPLAINTS, AFIB 80'S ON MONITOR,
[2020-11-10] MEDS: 0.9 % Sodium Chloride Flush 3 ML SYRINGE IVFLUSH ×2 (15:41→21:32)
[2020-11-10] MEDS: Metoprolol Tartrate 50 MG TABLET PO ×3 (15:41→21:12)
[2020-11-10 15:47] LABS: Glucose, Whole Blood 328 mg/dL (60-115)
--- NOTE | 2020-11-10 16:04 | MHC.CM.PN ---
CM ATTEMPTED TO SEE PT IN ED BED 12 [facility] POURER OFF, PT WAS HAVING AN ECHO COMPLETED. CM WILL REVISIT TOMORROW.
--- NOTE | 2020-11-10 16:11 | PC.NURSE ---
Pt A&Ox3, was on cardizem 5mg/hr, I D/C on arrival at 1605 and gave 50mg metoprolol BP 170S/X, AFIB 80s. Hemosiderin disoloration to BLE 2-3+ pitting edema, denies chest pain, mild SOB, on 2L/min NC, FC bases bilat. Pheno sofia 203mg IM right vast. lat given. Pleasent at this time. Bed locked and in lowest position, call lucero in reach.
[2020-11-10 20:01] LABS: Glucose, Whole Blood 249 mg/dL (60-115)
[2020-11-10] MEDS: Atorvastatin Calcium 40 MG TABLET PO (21:11)
[2020-11-10] MEDS: PHENobarbitaL 30 MG TABLET 60 MG PO (21:11)
[2020-11-10] MEDS: Enoxaparin Sodium 40 MG/0.4 ML SYRINGE SUBCUT (21:12)
[2020-11-10] MEDS: traZODone HCL 50 MG TABLET PO (21:12)
[2020-11-10] MEDS: Insulin Glargine,Hum.rec.anlog 100 UNIT/ML 10 ML VIAL 10 UNIT SUBCUT (21:33)
[2020-11-11] VITALS (10 sets, daily range): BP systolic 114–146; BP diastolic 58–90; PULSE 88–143; RESP 16–23; TEMP 36.5–37.1; O2SAT 95–98
[2020-11-11 07:14] LABS: Glucose, Whole Blood 238 mg/dL (60-115)
[2020-11-11 08:09] LABS: Hematocrit 34.7 % (42-52); Hemoglobin 11.2 g/dl (14.0-18.0); Mean Corpuscular HGB Conc 32.3 g/dl (31.0-36.0); Mean Corpuscular Hemoglobin 31.3 pg (27.0-33.0); Mean Corpuscular Volume 96.9 fL (80-98); Mean Platelet Volume 10.1 fL (9.4-12.4); Platelet Count 124 X10*3/uL (160-400); Red Blood Count 3.58 X10*6/uL (4.60-5.80); Red Cell Distribution Width 14.5 % (11.0-16.0); White Blood Count 6.1 X10*3/uL (4.8-10.8)
[2020-11-11] MEDS: Folic Acid 1 MG TABLET PO (08:26)
[2020-11-11] MEDS: Aspirin Enteric Coated 81 MG TABLET.DR PO (08:26)
[2020-11-11] MEDS: Gabapentin 400 MG CAPSULE PO ×3 (08:26→21:28)
[2020-11-11] MEDS: PHENobarbitaL 30 MG TABLET 60 MG PO ×2 (08:26→21:27)
[2020-11-11] MEDS: Furosemide 40 MG TABLET PO ×2 (08:27→21:27)
[2020-11-11] MEDS: Insulin Lispro 100 UNIT/ML 3 ML VIAL SUBCUT ×4 (08:27→21:27)
[2020-11-11] MEDS: Metoprolol Tartrate 50 MG TABLET PO ×4 (08:27→21:27)
[2020-11-11] MEDS: Thiamine HCL 100 MG TABLET PO (08:27)
[2020-11-11] MEDS: 0.9 % Sodium Chloride Flush 3 ML SYRINGE IVFLUSH ×2 (08:27→16:50)
[2020-11-11] MEDS: Famotidine/PF 20 MG/2 ML VIAL IVPUSH ×2 (08:27→21:26)
[2020-11-11 08:34] LABS: Anion Gap 12 (12-20); Blood Urea Nitrogen 11 mg/dL (9-16); Calcium 8.4 mg/dL (8.4-10.2); Carbon Dioxide 24 mmol/L (22-29); Chloride 103 mmol/L (96-108); Creatinine Clr Calc Pharmacy 149.3; Estimated Glomerular Filt Rate > 60; Glucose Random 227 mg/dL (60-115); Potassium 4.1 mmol/L (3.3-5.1); Sodium 135 mmol/L (135-145)
[2020-11-11 11:13] LABS: Glucose, Whole Blood 245 mg/dL (60-115)
--- NOTE | 2020-11-11 12:54 | MHC.CM.PN ---
CM MET WITH PT WITH THE ASSISTANCE OF [facility]. PT REPORTS HE WAS STAYING WITH HIS BROTHER HOWEVER HE HAD TO LEAVE BECAUSE HIS BROTHER LIVES IN PUBLIC HOUSING AND IS NOT SUPPOSED TO HAVE ANYONE THERE. PT REPORTS HE RETURNED TO THE STREETS . PT REPORTS HE IS INDEPENDENT WITH CARE AND USES A CANE TO AMBULATE. PT DENIES BEING CONNECTED TO ANY COMMUNITY RESOURCES BUT IS INTERESTED IN A CARE TEAM CONSULT. PT REPORTS HIS PCP IS CHICHI MURGUIA AT [facility]. IMM DELIVERED CURRENT DC PLAN IS GROUP HOME VS PROGRAM VS RETURN TO PREVIOUS LIVING SITUATION. PT WILL NEED ASSISTANCE WITH TRANSPORTATION
--- NOTE | 2020-11-11 14:15 | PM.IMPN ---
Progress Note: A&P (1) Atrial fibrillation with rapid ventricular response: Status: Acute Assessment and Plan: This is a 60-year-old male with a past medical history of systolic heart failure, atrial fibrillation with multiple episodes of rapid ventricular response, alcohol abuse and dependence with prior withdrawal symptoms and uncontrolled diabetes who presents to the hospital with complaints of alcohol intoxication. Unfortunately he has gone into rapid AFib. AFib with RVR Suspected persistent AFib Discontinue Cardizem good in light of his known reduced EF Increases baseline metoprolol from 75 mg twice daily to 50 mg q.6 Not on anticoagulation due to his noncompliance and chronic alcoholism Does not appear to be in CHF at this time Alcohol withdrawal and dependence likely contributing to above stop ativan, use phenobarb per protocol monitor lytes alcohol cessation as been advised will get CARE team consult Uncontrolled DM due to non-compliance with meds basal + bolus Chronic HFrEF continue baseline meds including diuretics Full Code DVT pptx, Lovenox Attending Dr. Harman Subjective Subjective Date of Service: 11/11/20 Interval History: Follow up afib rvr Some anxiety, but better than yesterday Physical Exam Vital Signs: Vital Signs: Last Vital Signs Temp 97.7 F 11/11/20 11:14 Pulse 143 H 11/11/20 13:52 Resp 20 11/11/20 11:14 BP 129/71 11/11/20 13:52 Pulse Ox 96 11/11/20 11:14 Body Mass Index 29.9 Appearing in no acute distress lung sounds are clear to auscultation heart regular rate rhythm, clear S1, S2 positive bowel sounds, abdomen is soft, nontender neuro patient is alert x3, no focal deficits Objective Data Current Medications Generic Name Dose Route Start Last Admin Trade Name Freq PRN Reason Stop Dose Admin Acetaminophen 650 mg 11/09/20 20:05 Acetaminophen 325 Mg Tablet PO Q6H PRN Pain, Mild (Pain Scale 1-3) Aspirin 81 mg 11/10/20 09:00 11/11/20 08:26 Aspirin Enteric Coated 81 Mg Tablet. PO 81 mg DAILY [facility]Y Administration Atorvastatin Calcium 40 mg 11/10/20 21:00 11/10/20 21:11 Atorvastatin Calcium 40 Mg Tablet PO 40 mg BEDTIME [facility]Y Administration Enoxaparin Sodium 40 mg 11/09/20 21:00 11/10/20 21:12 Enoxaparin Sodium 40 Mg/0.4 Ml Syringe SUBCUT 40 mg Q24H FRANKY Administration Famotidine 20 mg 11/09/20 21:00 11/11/20 08:27 Famotidine/Pf 20 Mg/2 Ml Vial IVPUSH 20 mg BID FRANKY Administration Folic Acid 1 mg 11/10/20 09:00 11/11/20 08:26 Folic Acid 1 Mg Tablet PO 1 mg DAILY [facility]Y Administration Furosemide 40 mg 11/10/20 09:00 11/11/20 08:27 Furosemide 40 Mg Tablet PO 40 mg BID FRANKY Administration Protocol Gabapentin 400 mg 11/10/20 09:00 11/11/20 08:26 Gabapentin 400 Mg Capsule PO 400 mg TID FRANKY Administration Insulin Glargine 10 unit 11/09/20 21:00 11/10/20 21:33 Insulin Glargine,Hum.Rec.Anlog 100 Unit/Ml 10 Ml Vial SUBCUT 10 unit BEDTIME [facility] Administration Insulin Human Lispro 0 unit 11/09/20 21:00 11/11/20 11:26 Insulin Lispro 100 Unit/Ml 3 Ml Vial SUBCUT 4 unit QIDACHS [facility] Administration Protocol Magnesium Hydroxide 30 ml 11/09/20 20:05 Milk Of Magnesia 30 Ml Oral.Susp PO DAILY PRN Constipation Medication 1 each 11/10/20 10:08 No Benzodiazepines MISCELLANE DAILY [facility] Melatonin 6 mg 11/09/20 20:05 Melatonin 3 Mg Tablet PO BEDTIME PRN Insomnia Metoprolol Tartrate 50 mg 11/10/20 15:00 11/11/20 13:52 Metoprolol Tartrate 50 Mg Tablet PO 50 mg QID [facility] Administration Protocol Multivitamins 1 tab 11/10/20 09:00 11/11/20 08:26 B-Complex With Vitamin C Tablet PO 1 tab DAILY [facility] Administration Pharmacy Consult 1 each 11/09/20 19:52 Consult Rx Perform Med Rec MISCELLANE ONCE PRN Consult order Phenobarbital 60 mg 11/10/20 21:00 11/11/20 08:26 Phenobarbital 30 Mg Tablet PO 11/12/20 09:01 60 mg BID [facility] Administration Protocol Phenobarbital 30 mg 11/12/20 21:00 Phenobarbital 30 Mg Tablet PO 11/14/20 09:01 BID [facility] Protocol Phenobarbital 30 mg 11/15/20 09:00 Phenobarbital 30 Mg Tablet PO 11/16/20 09:01 DAILY [facility]Y Protocol Sodium Chloride 3 ml 11/10/20 00:00 11/11/20 08:27 0.9 % Sodium Chloride Flush 3 Ml Syringe IVFLUSH 3 ml QSHIFT [facility]ANKY Administration Thiamine HCl 100 mg 11/10/20 09:00 11/11/20 08:27 Thiamine Hcl 100 Mg Tablet PO 100 mg DAILY [facility] Administration Trazodone HCl 50 mg 11/10/20 21:00 11/10/20 21:12 Trazodone Hcl 50 Mg Tablet PO 50 mg BEDTIME [facility] Administration Labs CBC & Chem 7: 11/11/20 07:51 11/11/20 07:51 Labs: Laboratory Results - last 24 hr 11/10/20 11/10/20 11/11/20 15:45 19:55 07:10 MCV MCH MCHC RDW Plt Count MPV Absolute Nucleated RBC Nucleated RBC % (auto) Anion Gap Estim Creat Clear Calc Estimated GFR POC Glucose 328 H 249 H 238 H Random Glucose Calcium 11/11/20 11/11/20 11/11/20 07:51 07:51 11:10 MCV 96.9 MCH 31.3 MCHC 32.3 RDW 14.5 Plt Count 124 L MPV 10.1 Absolute Nucleated RBC 0.000 Nucleated RBC % (auto) 0.0 Anion Gap 12 Estim Creat Clear Calc 149.3 Estimated GFR > 60 POC Glucose 245 H Random Glucose 227 H Calcium 8.4 Quality Stroke Does the patient have a stroke diagnosis?: No VTE Prior VTE?: No VTE Risk Level:: Medical - moderate - high VTE Device Contraindication: N/A - Device Ordered VTE Drug Contraindication: N/A - Med Ordered
[2020-11-11 16:04] LABS: Glucose, Whole Blood 287 mg/dL (60-115)
[2020-11-11 19:52] LABS: Glucose, Whole Blood 229 mg/dL (60-115)
[2020-11-11] MEDS: Enoxaparin Sodium 40 MG/0.4 ML SYRINGE SUBCUT (21:26)
[2020-11-11] MEDS: Insulin Glargine,Hum.rec.anlog 100 UNIT/ML 10 ML VIAL 10 UNIT SUBCUT (21:27)
[2020-11-11] MEDS: Atorvastatin Calcium 40 MG TABLET PO (21:27)
[2020-11-11] MEDS: traZODone HCL 50 MG TABLET PO (21:28)
[2020-11-12] MEDS: 0.9 % Sodium Chloride Flush 3 ML SYRINGE IVFLUSH ×2 (00:39→08:18)
[2020-11-12 03:29] VITALS: BP 132/87; PULSE 92; RESP 16; TEMP 36.3; O2SAT 98
[2020-11-12 07:00] LABS: Hematocrit 33.5 % (42-52); Mean Corpuscular HGB Conc 32.8 g/dl (31.0-36.0); Mean Corpuscular Hemoglobin 31.6 pg (27.0-33.0); Mean Corpuscular Volume 96.3 fL (80-98); Mean Platelet Volume 10.3 fL (9.4-12.4); Platelet Count 113 X10*3/uL (160-400); Red Blood Count 3.48 X10*6/uL (4.60-5.80); Red Cell Distribution Width 14.3 % (11.0-16.0)
[2020-11-12 07:09] LABS: Glucose, Whole Blood 167 mg/dL (60-115)
[2020-11-12 07:32] LABS: Anion Gap 14 (12-20); Blood Urea Nitrogen 11 mg/dL (9-16); Calcium 8.3 mg/dL (8.4-10.2); Carbon Dioxide 26 mmol/L (22-29); Chloride 102 mmol/L (96-108); Creatinine Clr Calc Pharmacy 158.2; Estimated Glomerular Filt Rate > 60; Glucose Random 157 mg/dL (60-115); Potassium 3.6 mmol/L (3.3-5.1); Sodium 138 mmol/L (135-145)
[2020-11-12 07:33] VITALS: BP 146/76; PULSE 127; RESP 20; TEMP 36.7; O2SAT 95
[2020-11-12 08:17] VITALS: BP 146/76; PULSE 127
[2020-11-12] MEDS: Thiamine HCL 100 MG TABLET PO (08:17)
[2020-11-12] MEDS: PHENobarbitaL 30 MG TABLET 60 MG PO (08:17)
[2020-11-12] MEDS: Folic Acid 1 MG TABLET PO (08:17)
[2020-11-12] MEDS: Aspirin Enteric Coated 81 MG TABLET.DR PO (08:17)
[2020-11-12] MEDS: Furosemide 40 MG TABLET PO (08:17)
[2020-11-12] MEDS: Metoprolol Tartrate 50 MG TABLET PO (08:17)
[2020-11-12] MEDS: Gabapentin 400 MG CAPSULE PO (08:17)
[2020-11-12] MEDS: Famotidine/PF 20 MG/2 ML VIAL IVPUSH (08:18)
[2020-11-12] MEDS: Insulin Lispro 100 UNIT/ML 3 ML VIAL SUBCUT (08:18)
--- NOTE | 2020-11-12 10:12 | PM.DS ---
DS: Providers Provider Date of Service: 11/12/20 <Vira Zurita NP - Last Filed: 11/12/20 10:20> Date of admission: 11/09/20 20:05 <Vira Zurita NP - Last Filed: 11/12/20 10:20> Date of discharge: 11/12/20 <Vira Zurita NP - Last Filed: 11/12/20 10:20> Primary care physician: [facility] <Vira Zurita NP - Last Filed: 11/12/20 10:20> Admitting clinician: Deandre Mcfadden <Vira Zurita NP - Last Filed: 11/12/20 10:20> Attending physician on admission: Deandre Mcfadden <Vira Zurita NP - Last Filed: 11/12/20 10:20> Consults: 11/11/20 14:19 Consult to Care Team Routine Comment: Reason for consultation: alcohol abuse <Vira Zurita NP - Last Filed: 11/12/20 10:20> Attending physician on discharge: Woo Johnson <Vira Zurita NP - Last Filed: 11/12/20 10:20> Discharging clinician: Vira Zurita <Vira Zurita NP - Last Filed: 11/12/20 10:20> DS: Diagnosis Discharge Diagnosis (1) Atrial fibrillation with rapid ventricular response: Status: Acute <Vira Zurita NP - Last Filed: 11/12/20 10:20> (2) Acute hyperglycemia: Status: Acute <Vira Zurita NP - Last Filed: 11/12/20 10:20> (3) ETOH abuse: Status: Acute <Vira Zurita NP - Last Filed: 11/12/20 10:20> DS: Medications Discharge Medications Home Medications: Home Medications Medication Instructions Recorded Confirmed Lantus Solostar U-100 Insulin 6 unit SUBCUT QAM 09/11/20 11/07/20 atorvastatin 1 tab PO BEDTIME 09/11/20 11/09/20 gabapentin 1 cap PO TID 09/11/20 11/09/20 metformin 1 tab PO BID 09/11/20 11/09/20 trazodone 1 tab PO BEDTIME 09/11/20 11/09/20 Previous Rx's Medication Instructions Recorded furosemide [Lasix] 40 mg PO BID 30 Days #60 tab 05/27/21 aspirin 81 mg PO DAILY #30 tab 11/04/20 folic acid 1 mg PO DAILY #30 tab 11/04/20 thiamine mononitrate (vit B1) 100 mg PO DAILY #30 tab 11/04/20 metoprolol tartrate 100 mg PO BID #60 tab 11/12/20 <Vira Zurita NP - Last Filed: 11/12/20 10:20> DS: Summary Hospital Course Hospital Course: HP as per admitting provider 60-year-old male with a past medical history of hypertension, hyperlipidemia, diabetes, CAD, CHF, AFib-not on anticoagulation, active alcohol abuse presented to the hospital with chief complaint of confusion/alcohol intoxication. Patient denies any chest pain palpitations lightheadedness or dizziness. Denies any fever chills cough. Denies any GI or symptoms. Review of all other systems is negative except mentioned above. ER course: Per ER team patient on presentation noted to be intoxicated, not giving good history; on the monitor patient noted to be in AFib with RVR with heart rate in a wound that is to 140s; the patient received metoprolol succinate followed by diltiazem drip; patient heart rate gradually Patient initially on presentation noted have hyperglycemia, not in DKA; given regular insulin IV push. Admitted for further management . Atrial fibrillation with rapid ventricular response . Patient with history of atrial fibrillation and alcohol abuse which likely exacerbate this. He also is not compliant with taking his medications on a regular basis. He initially was treated with diltiazem drip and then changed to metoprolol 50 mg q.i.d.. He responded well to this and he will be discharged with metoprolol 100 mg twice daily and encouraged to take medications daily as prescribed. Alcohol abuse. History of heavy alcohol use. Was placed on phenobarbital while inpatient with good results. Patient encouraged to sustain from any alcohol use which could exacerbate his atrial fibrillation. Diabetes mellitus. He was also noted to be hyperglycemic initially. He responded well to sliding scale insulin. He will continue his metformin and Lantus at home. <Vira Zurita NP - Last Filed: 11/12/20 10:20> Time Spent with Patient Time attestation: Total time spent providing and/or coordinating discharge services: <Vira Zurita NP - Last Filed: 11/12/20 10:20> Discharge coordination time: Greater than 30 minutes <Vira Zurita NP - Last Filed: 11/12/20 10:20> Quality: Stroke Does the patient have a stroke diagnosis?: No <Vira Zurita NP - Last Filed: 11/12/20 10:20> Physical Exam Vital Signs: Vital Signs: Last Vital Signs Temp 98.0 F 11/12/20 07:33 Pulse 127 H 11/12/20 08:17 Resp 20 11/12/20 07:33 BP 146/76 H 11/12/20 08:17 Pulse Ox 95 11/12/20 07:33 Body Mass Index 29.9 <Vira Zurita NP - Last Filed: 11/12/20 10:20> Appearing in no acute distress head is normocephalic atraumatic eyes pupils are PERRLA sclera is anicteric mouth throat mucous membranes are intact and moist neck is supple no lymphadenopathy, no JVD noted lung sounds are clear to auscultation heart regular rate rhythm, clear S1, S2 positive bowel sounds, abdomen is soft, nontender neuro patient is alert x3, no focal deficits <Vira Zurita NP - Last Filed: 11/12/20 10:20> DS: Data Data Completed and Pending Completed studies during hospitalization [Text1]: Procedures Detoxification Services for Substance Abuse Treatment (11/02/20) <Vira Zurita NP - Last Filed: 11/12/20 10:20> Labs on day of discharge: Laboratory Results - last 24 hr 11/11/20 11/11/20 11/11/20 11:10 15:56 19:46 WBC RBC Hgb Hct MCV MCH MCHC RDW Plt Count MPV Absolute Nucleated RBC Nucleated RBC % (auto) Sodium Potassium Chloride Carbon Dioxide Anion Gap BUN Creatinine Estim Creat Clear Calc Estimated GFR POC Glucose 245 H 287 H 229 H Random Glucose Calcium 11/12/20 11/12/20 11/12/20 05:43 05:43 07:02 WBC 6.0 RBC 3.48 L Hgb 11.0 L Hct 33.5 L MCV 96.3 MCH 31.6 MCHC 32.8 RDW 14.3 Plt Count 113 L MPV 10.3 Absolute Nucleated RBC 0.000 Nucleated RBC % (auto) 0.0 Sodium 138 Potassium 3.6 Chloride 102 Carbon Dioxide 26 Anion Gap 14 BUN 11 Creatinine 0.67 Estim Creat Clear Calc 158.2 Estimated GFR > 60 POC Glucose 167 H Random Glucose 157 H Calcium 8.3 L <Vira Zurita NP - Last Filed: 11/12/20 10:20> Discharge Plan Discharge Anticipated Discharge Date/Time: 11/12/20 10:08 <Vira Zurita NP - Last Filed: 11/12/20 10:20> Patient Disposition: Home, Self-Care <Vira Zurita NP - Last Filed: 11/12/20 10:20> Discharge Diagnosis: Atrial fibrillation with rapid ventricular response Alcohol abuse <Vira Zurita NP - Last Filed: 11/12/20 10:20> Atrial fibrillation with rapid ventricular response Alcohol abuse <Woo Johnson MD - Last Filed: 11/14/20 15:48> Referrals: [facility] [Primary Care Provider] - 1 Week <Vira Zurita NP - Last Filed: 11/12/20 10:20> Discharge Medications: New metoprolol tartrate 100 mg tablet 100 mg PO BID Qty: 60 RF: 0 Continued atorvastatin 40 mg tablet 1 tab PO BEDTIME RF: 0 trazodone 50 mg tablet 1 tab PO BEDTIME RF: 0 gabapentin 400 mg capsule 1 cap PO TID RF: 0 metformin 1,000 mg tablet 1 tab PO BID RF: 0 Lantus Solostar U-100 Insulin 100 unit/mL (3 mL) insulin pen 6 unit subcut QAM RF: 0 furosemide [Lasix] 40 mg tablet 40 mg PO BID 30 Days Qty: 60 RF: 0 aspirin 81 mg Tablet,Delayed Release (Dr/Ec) 81 mg PO DAILY Qty: 30 RF: 0 folic acid 1 mg Tablet 1 mg PO DAILY Qty: 30 RF: 0 thiamine mononitrate (vit B1) 100 mg Tablet 100 mg PO DAILY Qty: 30 RF: 0 Discontinued metoprolol tartrate 50 mg tablet 75 mg PO BID RF: 0 <Vira Zurita NP - Last Filed: 11/12/20 10:20> Discharge Orders: Discharge Order (Routine); Ordered 11/12/20 Ordered By: Vira Zurita <Vira Zurita NP - Last Filed: 11/12/20 10:20> Diet: advance to usual diet <Vira Zurita NP - Last Filed: 11/12/20 10:20> advance to usual diet <Woo Johnson MD - Last Filed: 11/14/20 15:48> Activity on Discharge: As tolerated <Vira Zurita NP - Last Filed: 11/12/20 10:20> As tolerated <Woo Johnson MD - Last Filed: 11/14/20 15:48> Stand Alone Forms: Patient Portal Discharge page <Vira Zurita NP - Last Filed: 11/12/20 10:20> Care Plan Goals: Sustain from using alcohol <Vira Zurita NP - Last Filed: 11/12/20 10:20> Health Concerns: Atrial fibrillation with rapid ventricular response Alcohol abuse <Vira Zurita NP - Last Filed: 11/12/20 10:20> Plan of Treatment: You have been started on metoprolol 100 mg twice daily, take as directed Follow-up with senior benefits analyst as needed Follow-up with your primary care provider as needed <Vira Zurita NP - Last Filed: 11/12/20 10:20> Assessment: see discharge summary I saw the patient and discussed plan and disposition with TOPOGRAPHICAL SURVEYOR, and I agree with above <Vira Zurita NP - Last Filed: 11/12/20 10:20> Discharge Date/Time: 11/12/20 11:54 <Vira Zurita NP - Last Filed: 11/12/20 10:20>
--- NOTE | 2020-11-12 10:24 | MHC.CM.PN ---
Addendum entered by Kandi Hoskins 11/12/20 11:29: [employer]AX[employer]CHER PROVIDED Original Note: PT CLEARED TO [place] TODAY. PT REPORTS HE WILL BE GOING TO STAY WITH HIS BROTHER.
[2020-11-12 11:16] LABS: Glucose, Whole Blood 190 mg/dL (60-115)
--- NOTE | 2020-11-12 11:59 | MHC.RECOVSUP ---
Recovery Support note: Patient is a 60 year old Micronesian speaking male who presented to [facility] ED via EMS after being found intoxicated in the community. Patient was medically admitted. This junior underwriter met with patient prior to discharge to discuss the importance of alcohol cessation. Patient acknowledges the importance of abstaining from alcohol however does not verbalize commitment to sobriety. Discussed community supports with patient and encouraged him to utilize these supports for help. Patient requested a t-shirt prior to discharge and this was provided.
== END 2020-11-12 11:54 | disposition home or self-care (01) | DRG 309 ==
LOC: HO.ED 20:01 → HO.EDOVER 20:34 → HO.IMC 11-10 13:19
PROVIDERS: Emergency Medicine Emergency Medical Services; Family Medicine; Nurse Practitioner Acute Care; Admitting Provider Hospitalist; Emergency Provider Emergency Medicine; Visit Provider Internal Medicine
DX: I48.19 Other persistent atrial fibrillation (principal); F10.239 Alcohol dependence with withdrawal, unspecified; I50.32 Chronic diastolic (congestive) heart failure; E78.5 Hyperlipidemia, unspecified; I25.10 Atherosclerotic heart disease of native coronary artery without angina pectoris; F10.229 Alcohol dependence with intoxication, unspecified; E11.65 Type 2 diabetes mellitus with hyperglycemia; E86.0 Dehydration; Z91.14 Patient's other noncompliance with medication regimen; Z20.822 Contact with and (suspected) exposure to COVID-19; Z79.4 Long term (current) use of insulin; Z79.83 Long term (current) use of bisphosphonates; Z79.899 Other long term (current) drug therapy
CPT/HCPCS: 36415; 71045; 80048; 80053; 80076; 80307; 81001; 82077; 82947; 83690; 83735; 83880; 84484; 85025; 85027; 85730; 87635; 93005; 99285; J1650; J2060; J2560; J3475

== ENCOUNTER 2020-11-14 01:23 | Emergency (ER) | payer MEDICARE, MEDICAID, SELFPAY ==
[2020-11-14 01:25] VITALS: BP 142/89; BP 160/110; PULSE 112; PULSE 98; RESP 18; TEMP 36.6; O2SAT 95; BMI 37.1
--- NOTE | 2020-11-14 02:18 | ED.ALCOHOL ---
HPI - Alcohol General Chief Complaint: ETOH/Substance Use Stated Complaint: ETOH INTOXICATION Time Seen by Provider: 11/14/20 02:18 Source: patient Mode of arrival: EMS History of Present Illness HPI narrative: 60-year-old male arrives via EMS for alcohol intoxication and has no acute complaints at this time. Suicidal homicidal ideation and otherwise has no acute complaints. Related Data Home Medications Medication Instructions Recorded Confirmed Lantus Solostar U-100 Insulin 6 unit SUBCUT QAM 09/11/20 11/07/20 atorvastatin 1 tab PO BEDTIME 09/11/20 11/09/20 gabapentin 1 cap PO TID 09/11/20 11/09/20 metformin 1 tab PO BID 09/11/20 11/09/20 trazodone 1 tab PO BEDTIME 09/11/20 11/09/20 Previous Rx's Medication Instructions Recorded furosemide [Lasix] 40 mg PO BID 30 Days #60 tab 09/14/20 aspirin 81 mg PO DAILY #30 tab 11/04/20 folic acid 1 mg PO DAILY #30 tab 11/04/20 thiamine mononitrate (vit B1) 100 mg PO DAILY #30 tab 11/04/20 metoprolol tartrate 100 mg PO BID #60 tab 11/12/20 Allergies Allergy/AdvReac Type Severity Reaction Status Date / Time Penicillins [PCN] Allergy Unknown UNKNOWN Verified 09/03/20 16:05 Review of Systems Review of Systems: Pertinent positives and negatives as stated in HPI and 10 point review of systems is otherwise negative. [facility] Past Medical History Source: nursing notes reviewed Medical History A-fib Alcohol use disorder, severe, dependence Atrial fibrillation, rapid CAD (coronary artery disease) Cardiomyopathy CHF (congestive heart failure) Cirrhosis Depression Diabetes ETOH abuse HTN (hypertension) Social History Social History Household Members: Unknown / Unable to assess Housing: Apartment Housing Other:: rents room Do you presently have visiting nurse or other home services: No Unable to assess alcohol history related to: Refusing to respond Alcohol intake: current Alcohol intake frequency: 3 or more drinks per day Alcohol type: beer, wine and hard liquor Patient Tobacco Use Status: Never used Tobacco Second Hand Smoke Exposure: No Advance Directives: No Advance Directives Information Provided: No service: No Current occupational status: unemployed and disabled Physical Exam Vital Signs: Vital Signs: Last Vital Signs Temp 97.8 F 11/14/20 01:25 Pulse 87 11/14/20 06:00 Resp 16 11/14/20 06:00 BP 142/92 H 11/14/20 06:00 Pulse Ox 98 11/14/20 06:00 Body Mass Index 37.1 VITAL SIGNS: Reviewed. GENERAL: Well developed, well nourished, smell like alcohol. HEAD: Normocephalic/atraumatic EYES: PERRLA, EOMI EARS: Ext canals without abnormalityl OROPHARYNX: no oral lesions noted, posterior pharynx clear LUNGS: Normal breath sounds. No adventitious sounds or accessory muscle use. SpO2<98> CARDIOVASCULAR: Regular rate and rhythm without noted murmurs ABDOMEN: Obese, Soft, non-tender, non-distended with bowel sounds. SKIN: Inspection of the skin reveals no rashes NEUROLOGIC: Drowsy and oriented x 4. Strength and sensation to light touch were grossly intact x 4. Course Course Course Narrative: 60-year-old male with history and clinical presentation consistent with alcohol intoxication secondary to alcohol dependence and will require observation until sober enough to be discharged home. On re-evaluation patient is easily arousable and was evaluated for gait stability prior to discharge. Patient ate breakfast prior to discharge and was otherwise provided with a shuttle to his home. Discharge Plan Discharge Clinical Impression: Alcohol intoxication, Alcohol dependence Patient Disposition: Home, Self-Care Instructions: Alcohol Intoxication (ED), Alcohol Dependence (ED) Additional Instructions: 1. Reanude todos los medicamentos caseros seg?n lo recetado. 2. Kayy un seguimiento con el proveedor de atenci?n primaria en los pr?ximos 2-3 d?as para mack reevaluaci?n. Regrese a la ibrahima de emergencias si alyssa s?ntomas empeoran de manera aguda. Prescriptions: No Action metoprolol tartrate 100 mg tablet 100 mg PO BID Qty: 60 RF: 0 atorvastatin 40 mg tablet 1 tab PO BEDTIME RF: 0 trazodone 50 mg tablet 1 tab PO BEDTIME RF: 0 gabapentin 400 mg capsule 1 cap PO TID RF: 0 metformin 1,000 mg tablet 1 tab PO BID RF: 0 Lantus Solostar U-100 Insulin 100 unit/mL (3 mL) insulin pen 6 unit subcut QAM RF: 0 furosemide [Lasix] 40 mg tablet 40 mg PO BID 30 Days Qty: 60 RF: 0 aspirin 81 mg Tablet,Delayed Release (Dr/Ec) 81 mg PO DAILY Qty: 30 RF: 0 folic acid 1 mg Tablet 1 mg PO DAILY Qty: 30 RF: 0 thiamine mononitrate (vit B1) 100 mg Tablet 100 mg PO DAILY Qty: 30 RF: 0 Referrals: Physician,Unknown [Primary Care Provider] - 2 days Print Language: Armenian
[2020-11-14 06:00] VITALS: BP 142/92; PULSE 87; RESP 16; O2SAT 98
[2020-11-14 08:51] LABS: Glucose, Whole Blood 271 mg/dL (60-115)
== END 2020-11-14 08:56 | disposition home or self-care (01) ==
PROVIDERS: Emergency Provider Student in an Organized Health Care Education/Training Program
DX: F10.220 Alcohol dependence with intoxication, uncomplicated (principal); Y90.9 Presence of alcohol in blood, level not specified
CPT/HCPCS: 82947; 99284

== ENCOUNTER 2020-11-15 00:48 | Emergency (ER) | payer MEDICARE, MEDICAID, SELFPAY ==
[2020-11-15 00:51] VITALS: BP 152/90; PULSE 78; RESP 18; O2SAT 96; BMI 33.0
--- NOTE | 2020-11-15 01:32 | ED.ALCOHOL ---
HPI - Alcohol General Chief Complaint: ETOH/Substance Use Stated Complaint: ETOH INTOXICATION Time Seen by Provider: 11/15/20 01:32 History of Present Illness HPI narrative: 60-year-old male brought in via EMS after being found outside, with alcohol intoxication and brought in for safety concerns. Patient denies any acute complaints. Related Data Home Medications Medication Instructions Recorded Confirmed atorvastatin 40 mg tablet 1 tab PO BEDTIME 09/11/20 11/09/20 gabapentin 400 mg capsule 1 cap PO TID 09/11/20 11/09/20 insulin glargine 100 unit/mL (3 6 unit SUBCUT QAM 09/11/20 11/07/20 mL) subcutaneous pen (Lantus Solostar U-100 Insulin) metformin 1,000 mg tablet 1 tab PO BID 09/11/20 11/09/20 trazodone 50 mg tablet 1 tab PO BEDTIME 09/11/20 11/09/20 Previous Rx's Medication Instructions Recorded furosemide 40 mg tablet (Lasix) 40 mg PO BID 30 Days #60 tab 09/14/20 aspirin 81 mg tablet,delayed 81 mg PO DAILY #30 tab 11/04/20 release folic acid 1 mg tablet 1 mg PO DAILY #30 tab 11/04/20 thiamine mononitrate (vit B1) 100 100 mg PO DAILY #30 tab 11/04/20 mg tablet metoprolol tartrate 100 mg tablet 100 mg PO BID #60 tab 11/12/20 Allergies Allergy/AdvReac Type Severity Reaction Status Date / Time Penicillins [PCN] Allergy Unknown UNKNOWN Verified 09/03/20 16:05 Review of Systems Review of Systems: Limited review of systems obtained secondary to patient's intoxication. [facility] Past Medical History Medical History A-fib Alcohol use disorder, severe, dependence Atrial fibrillation, rapid CAD (coronary artery disease) Cardiomyopathy CHF (congestive heart failure) Cirrhosis Depression Diabetes ETOH abuse HTN (hypertension) Social History Social History Household Members: Unknown / Unable to assess Housing: Apartment Housing Other:: rents room Do you presently have visiting nurse or other home services: No Unable to assess alcohol history related to: Refusing to respond Alcohol intake: current Alcohol intake frequency: 3 or more drinks per day Alcohol type: beer and hard liquor Patient Tobacco Use Status: Current everyday Tobacco user Smoked in Last 30 Days: Yes Second Hand Smoke Exposure: No Use of substances other than those prescribed or required for medical reasons: No Advance Directives: No Advance Directives Information Provided: No service: No Current occupational status: unemployed and disabled Physical Exam Vital Signs: Vital Signs: Last Vital Signs Temp 98.5 F 11/15/20 07:22 Pulse 113 H 11/15/20 07:22 Resp 15 11/15/20 07:22 BP 127/94 H 11/15/20 07:22 Pulse Ox 93 11/15/20 07:22 Body Mass Index 33.0 VITAL SIGNS: Reviewed. GENERAL: Well developed, well nourished, in no acute distress. HEAD: Normocephalic/atraumatic EYES: PERRLA, EOMI EARS: Ext canals without abnormalityl OROPHARYNX: no oral lesions noted, posterior pharynx clear LUNGS: Normal breath sounds. No adventitious sounds or accessory muscle use. SpO2<93> CARDIOVASCULAR: Regular rate and rhythm without noted murmurs ABDOMEN: Obese, Soft, non-tender, non-distended with bowel sounds. SKIN: Inspection of the skin reveals no rashes NEUROLOGIC: Drowsy/intoxicated and oriented x 3. Strength and sensation to light touch were grossly intact x 4. Course Course Course Narrative: 60-year-old male with history and clinical presentation consistent with significant and persistent alcohol dependence and intoxication with repeated visits to the emergency room. I discussed this case with the care team who will communicate with Yani Frank to initiate Section 35 proceedings. Otherwise, patient is hemodynamically stable and has been provided with a safe space to become sober. Patient was noted to be mildly tachycardic prior to discharge in he was strongly encouraged to resume his home medications, especially those that control his heart rate. Patient was re-evaluated and found to be clinically sober for discharge MDM - Alcohol Lab Data Labs: Lab Results 11/15/20 11/15/20 11/15/20 Range/Units 01:30 03:37 06:13 POC Glucose 335 H 292 H (60-115) mg/dL Urine Color YELLOW Urine Appearance CLEAR Urine pH 6.0 (5.0-8.0) Ur Specific [place] 1.015 (1.005-1.025) Urine Protein 2+ H (NEG-TRACE) MG/DL Urine Glucose (UA) >=1000 H (NEG) MG/DL Urine Ketones NEG (NEG) MG/DL Urine Blood 1+ H (NEG) Urine Nitrite NEG (NEG) Ur Leukocyte Esterase NEG (NEG) Urine RBC 5-9 H (0) /HPF Urine WBC 1-4 (0-4) /HPF Ur Squamous Epith Cells TRACE /LPF Urine Bacteria TRACE /LPF Discharge Plan Discharge Clinical Impression: Alcohol intoxication, Alcohol dependence Patient Disposition: Home, Self-Care Instructions: Alcohol Intoxication (ED), Alcohol Dependence (ED) Additional Instructions: 1. Resume all home medications, especially those that control your heart rate. 2. Follow-up with your primary care provider in the next 2-3 days for re-evaluation. Return to the ER for acute worsening of your symptoms. Prescriptions: No Action metoprolol tartrate 100 mg tablet 100 mg PO BID Qty: 60 RF: 0 atorvastatin 40 mg tablet 1 tab PO BEDTIME RF: 0 trazodone 50 mg tablet 1 tab PO BEDTIME RF: 0 gabapentin 400 mg capsule 1 cap PO TID RF: 0 metformin 1,000 mg tablet 1 tab PO BID RF: 0 Lantus Solostar U-100 Insulin 100 unit/mL (3 mL) insulin pen 6 unit subcut QAM RF: 0 furosemide [Lasix] 40 mg tablet 40 mg PO BID 30 Days Qty: 60 RF: 0 aspirin 81 mg Tablet,Delayed Release (Dr/Ec) 81 mg PO DAILY Qty: 30 RF: 0 folic acid 1 mg Tablet 1 mg PO DAILY Qty: 30 RF: 0 thiamine mononitrate (vit B1) 100 mg Tablet 100 mg PO DAILY Qty: 30 RF: 0 Referrals: Physician,Unknown [Primary Care Provider] - 2 days Print Language: Singaporean
[2020-11-15 01:34] LABS: Glucose, Whole Blood 335 mg/dL (60-115)
[2020-11-15 02:00] VITALS: RESP 16
[2020-11-15 06:16] LABS: Glucose, Whole Blood 292 mg/dL (60-115)
[2020-11-15 07:21] LABS: Appearance Urine CLEAR; Color Urine YELLOW; Glucose Urine UA >=1000 MG/DL (NEG); Leukocyte Esterase Urine NEG (NEG); Nitrite Urine NEG (NEG); Specific Gravity - Urine 1.015 (1.005-1.025); Urine Blood 1+ (NEG); Urine Ketones NEG (NEG); Urine Protein 2+ MG/DL (NEG-TRACE)
[2020-11-15 07:22] VITALS: BP 127/94; PULSE 113; RESP 15; TEMP 36.9; O2SAT 93
[2020-11-15 07:23] LABS: Bacteria Urine TRACE /LPF; Squamous Epithelial Cell Urine TRACE /LPF
== END 2020-11-15 07:54 | disposition home or self-care (01) ==
PROVIDERS: Emergency Provider Student in an Organized Health Care Education/Training Program
DX: F10.220 Alcohol dependence with intoxication, uncomplicated (principal); Y90.9 Presence of alcohol in blood, level not specified; I48.91 Unspecified atrial fibrillation; E11.9 Type 2 diabetes mellitus without complications; I10 Essential (primary) hypertension; K74.60 Unspecified cirrhosis of liver; F17.210 Nicotine dependence, cigarettes, uncomplicated; Z79.02 Long term (current) use of antithrombotics/antiplatelets; Z79.4 Long term (current) use of insulin; Z79.82 Long term (current) use of aspirin; Z86.16 Personal history of COVID-19
CPT/HCPCS: 81001; 82947; 99284; 99285

== ENCOUNTER 2020-11-16 01:07 | Inpatient (IN) | payer MEDICARE, MEDICAID, SELFPAY ==
[2020-11-16] VITALS (16 sets, daily range): BP systolic 123–168; BP diastolic 66–102; PULSE 69–137; RESP 15–30; TEMP 36.7–37.2; O2SAT 92–99; BMI 33.7
--- NOTE | ~2020-11-16 | CT_ITS ---
EXAMINATION: IV CONTRAST-ENHANCED CT THE CHEST, ABDOMEN PELVIS. CLINICAL INFORMATION: Short of breath. Anterior wall bruising. Intoxicated. Pain. COMPARISON: CT pulmonary angiogram chest 08/27/2020. CT abdomen pelvis 08/25/2020 TECHNIQUE: IV contrast and CT the chest, abdomen pelvis with multiple coronal and sagittal reformatted images. This CT examination was performed using dose optimization techniques as appropriate, variously including the following: *Automated exposure control *Adjustment of mA and/or kV according to patient size (this includes techniques or standardized protocols for targeted exams where dose is matched to indication/reason for exam; i.e. extremities or head) *Use of iterative reconstruction technique Intravenous contrast: Omnipaque 350 85 mL. DLP: 1379 mGy-cm FINDINGS: Mediastinum: Scattered mediastinal lymph nodes which are within normal limits of size are identified. Moderate diffuse calcific atherosclerosis of the aorta and visualized proximal segments of the great vessels is noted. The thoracic aorta is normal in caliber. The main and central pulmonary arteries are normal in caliber. Partial visualization is made of moderate diffuse coronary artery calcific atherosclerosis. The heart size is normal. No pericardial thickening or fluid collections are visualized. Lungs and pleura: Scattered airspace opacities are present in the right upper pulmonary lobe, right middle pulmonary lobe and to lesser degree within the right lower pulmonary lobe. No endobronchial lesions are identified. No pleural effusions or pneumothoraces. Thoracic wall: No axillary lymphadenopathy. Bilateral gynecomastia. Liver and biliary system: Hypertrophy of the caudate lobe is noted. Mild nodular contour irregularity of the anterior aspect of the liver is present and is suspicious for possible cirrhosis. Normal intraluminal opacification of the visualized portal venous system is noted. The gallbladder is partially collapsed. No biliary duct dilatation is identified. Pancreas: Normal. Spleen: Normal. No splenomegaly. Adrenal glands: Normal. Kidneys: No hydronephrosis or urolithiasis. No asymmetric nephrographic enhancement. Urinary bladder: Distended. No mural contour abnormalities. GI system: Mild sigmoid diverticulosis. Normal appendix and terminal ileum. No intestinal dilatation or mural thickening. No free intraperitoneal fluid or gas collections. Normal sigmoid and small bowel mesentery is. Pelvic viscera: Normal prostate size. Calcified bilateral seminal vesicles. Lymphovascular structures: Marked diffuse calcific atherosclerosis. No abdominal or pelvic lymphadenopathy. Abdominal wall: No abdominal wall hernias. Mild-moderate number of anterior abdominal wall subcutaneous venous varices. Mild bilateral edema predominantly in the gluteal regions. Skeletal systems: No suspicious skeletal lesions are noted. Mild to moderate multilevel chronic spondylosis of the thoracic and lumbar spine is identified. Partial visualization is made of moderate posterior broad-based disc bulges at L4-L5 and L5-S1. CT/CT abdomen pelvis w con IMPRESSION: 1. Multifocal airspace disease of the lungs predominantly within the right upper pulmonary lobe, right middle pulmonary lobe and to a lesser degree the right lower pulmonary lobe. Findings are slightly diminished in prominence compared with CT the thorax 08/27/2020. Findings on the 08/27/2020 examination were attributed to the sequela of viral pneumonitis. Current findings could represent resolving or recrudescent infection. 2. Findings suspicious for cirrhosis. Caudate lobe hypertrophy and hepatic capsular contour nodular regularity is present suspicious for cirrhosis. No ascites. Patent portal vein. Mild-moderate anterior abdominal wall subcutaneous varices which may indicate underlying portosystemic shunting and portal hypertension. 3. Bilateral gynecomastia secondary to underlying atelectasis function. 4. Bilateral seminal vesicle calcifications which may represent the sequela of long-standing diabetes mellitus. 5. Moderate diffuse peripheral and coronary artery calcific atherosclerosis. 6. Mild diverticulosis. 7. Distended urinary bladder.
--- NOTE | 2020-11-16 01:35 | ECG_ITS ---
Test Reason : SOB Blood Pressure : / mmHG Vent. Rate : 117 BPM Atrial Rate : 098 BPM P-R Int : 000 ms QRS Dur : 098 ms QT Int : 308 ms P-R-T Axes : 000 -76 079 degrees QTc Int : 429 ms Atrial fibrillation with rapid ventricular response with premature ventricular or aberrantly conducted complexes Left axis deviation Inferior infarct (cited on or before 02-JUL-2016) Anterior infarct (cited on or before 02-JUL-2016) Abnormal ECG When compared with ECG of 09-NOV-2020 16:53, No significant change was found Referred By: Kayla Su Electronically Signed By:ADRIANA CORRAL
[2020-11-16 02:14] LABS: Glucose, Whole Blood 422 mg/dL (60-115)
--- NOTE | 2020-11-16 02:15 | PC.NURSE ---
Dr Su aware of VS and elevated BGL at 422.
[2020-11-16 02:16] LABS: Basophils Percent Auto 0.6 % (0-2); Eosinophils Absolute Auto 0.2 X10*3/uL (0.0-0.4); Eosinophils Percent Auto 2.3 % (0-4); Hematocrit 35.7 % (42-52); Hemoglobin 11.7 g/dl (14.0-18.0); Imm Gran Abs Auto 0.03 X10*3/uL (0.00-0.03); Imm Gran Pct Auto 0.5 % (0.0-0.4); Lymphocytes Absolute Auto 1.5 X10*3/uL (1.2-4.9); Lymphocytes Percent Auto 22.2 % (20-40); MANUAL DIFF FLAG NO; Mean Corpuscular HGB Conc 32.8 g/dl (31.0-36.0); Mean Corpuscular Hemoglobin 31.6 pg (27.0-33.0); Mean Corpuscular Volume 96.5 fL (80-98); Mean Platelet Volume 9.7 fL (9.4-12.4); Monocytes Absolute Auto 0.7 X10*3/uL (0.1-1.2); Monocytes Percent Auto 10.3 % (2-11); Neutrophils Absolute Auto 4.2 X10*3/uL (2.0-8.3); Neutrophils Percent Auto 64.1 % (45-73); Platelet Count 121 X10*3/uL (160-400); Red Cell Distribution Width 14.5 % (11.0-16.0); White Blood Count 6.6 X10*3/uL (4.8-10.8)
--- NOTE | 2020-11-16 02:18 | ED_ITS ---
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 Patient otherwise denies any fever, chills, nausea, vomiting, abdominal pain or diarrhea. Patient complained of bilateral lower leg swelling which has increased. Related Data Home Medications Medication Instructions Recorded Confirmed atorvastatin 40 mg tablet 1 tab PO BEDTIME 09/11/20 11/09/20 gabapentin 400 mg capsule 1 cap PO TID 09/11/20 11/09/20 insulin glargine 100 unit/mL (3 6 unit SUBCUT QAM 09/11/20 11/07/20 mL) subcutaneous pen (Lantus Solostar U-100 Insulin) metformin 1,000 mg tablet 1 tab PO BID 09/11/20 11/09/20 trazodone 50 mg tablet 1 tab PO BEDTIME 09/11/20 11/09/20 Previous Rx's Medication Instructions Recorded furosemide 40 mg tablet (Lasix) 40 mg PO BID 30 Days #60 tab 09/14/20 aspirin 81 mg tablet,delayed 81 mg PO DAILY #30 tab 11/04/20 release folic acid 1 mg tablet 1 mg PO DAILY #30 tab 11/04/20 thiamine mononitrate (vit B1) 100 100 mg PO DAILY #30 tab 11/04/20 mg tablet metoprolol tartrate 100 mg tablet 100 mg PO BID #60 tab 11/12/20 Allergies Allergy/AdvReac Type Severity Reaction Status Date / Time Penicillins [PCN] Allergy Unknown UNKNOWN Verified 09/03/20 16:05 Review of Systems Review of Systems: Pertinent positives and negatives as stated in HPI 10 point review systems is otherwise negative. FOR[facility]LY [facility] Past Medical History Source: nursing notes reviewed Medical History A-fib Alcohol use disorder, severe, dependence Atrial fibrillation, rapid CAD (coronary artery disease) Cardiomyopathy CHF (congestive heart failure) Cirrhosis Depression Diabetes ETOH abuse HTN (hypertension) Social History Social History Household Members: Unknown / Unable to assess Housing: Apartment Housing Other:: rents room Do you presently have visiting nurse or other home services: No Unable to assess alcohol history related to: Refusing to respond Alcohol intake: current Alcohol intake frequency: 3 or more drinks per day Alcohol type: beer and hard liquor Patient Tobacco Use Status: Current everyday Tobacco user Second Hand Smoke Exposure: No Advance Directives: No Advance Directives Information Provided: No service: No Current occupational status: unemployed and disabled Physical Exam Vital Signs: Vital Signs: Last Vital Signs Temp 99.0 F 11/16/20 02:13 Pulse 114 H 11/16/20 06:23 Resp 28 H 11/16/20 06:23 BP 149/91 H 11/16/20 06:25 Pulse Ox 96 11/16/20 06:23 Body Mass Index 33.7 VITAL SIGNS: Reviewed. GENERAL: Well developed, well nourished, in no acute distress. HEAD: Normocephalic/atraumatic EYES: PERRLA, EOMI EARS: Ext canals without abnormality, TMs non-bulging and non-erythematous NOSE: Nares patent bilateral OROPHARYNX: no oral lesions noted, posterior pharynx clear, dry mucosa NECK: Supple, no adenopathy LUNGS: Normal breath sounds. No adventitious sounds or accessory muscle use. SpO2<95> CARDIOVASCULAR: IRR/IRR without noted murmurs, no JVD but bilateral lower extremity edema with 2+ pitting ABDOMEN: Obese, Soft, mild tenderness on palpation without rebound, non- distended with bowel sounds. Patient has ecchymotic areas on abdominal wall of unknown etiology MUSCULOSKELETAL: No tenderness, deformities, or effusions noted on gross inspection, area of ecchymosis to the right posterior shoulder without evidence of bony abnormality EXTREMITIES: Bilateral lower extremities with significant swelling, skin thickening and bronzing consistent with a component of chronic venous stasis SKIN: Inspection of the skin reveals no rashes, ulcerations, jaundice, pallor, or petechiae. NEUROLOGIC: Drowsy and oriented x 3. Strength and sensation to light touch were grossly intact x 4. Course Course Course Narrative: This is a 60-year-old male with history and clinical presentation consistent with his known alcohol dependence and recurrent intoxication, however patient with complaints of shortness of breath and findings on both clinical exam and objective markers consistent with CHF exace rbation likely contributed to by his atrial fibrillation with RVR. Patient received 5 mg of Lopressor with good response and decrease of heart rate from 130/140s to high 90s/low 100s. There are noted multiple areas of ecchymosis on this patient still be further evaluated by CT of the chest/abdomen/pelvis. In addition, patient is noted to be hyperglycemic without evidence of DKA and the noted lactic acidosis is likely secondary to atrial fibrillation/RVR as there is no evidence to suggest infectious etiology. This case was discussed with the inpatient hospitalist who is agreeable for admission. Will follow up CT chest/abd/pelvis. Medical Decision Making Lab Data Result diagrams: 11/16/20 02:07 11/16/20 02:07 Labs: Lab Results 11/16/20 11/16/20 11/16/20 Range/Units 02:07 02:07 02:07 WBC 6.6 (4.8-10.8) X10*3/uL RBC 3.70 L (4.60-5.80) X10*6/uL Hgb 11.7 L (14.0-18.0) g/dl Hct 35.7 L (42-52) % MCV 96.5 (80-98) fL MCH 31.6 (27.0-33.0) pg MCHC 32.8 (31.0-36.0) g/dl RDW 14.5 (11.0-16.0) % Plt Count 121 L (160-400) X10*3/uL MPV 9.7 (9.4-12.4) fL Immature Gran % (Auto) 0.5 H (0.0-0.4) % Neut % (Auto) 64.1 (45-73) % Lymph % (Auto) 22.2 (20-40) % Woodruff % (Auto) 10.3 (2-11) % Eos % (Auto) 2.3 (0-4) % Baso % (Auto) 0.6 (0-2) % Lymph # (Auto) 1.5 (1.2-4.9) X10*3/uL Woodruff # (Auto) 0.7 (0.1-1.2) X10*3/uL Eos # (Auto) 0.2 (0.0-0.4) X10*3/uL Baso # (Auto) 0.0 (0.0-0.2) X10*3/uL Abs Immat Gran (auto) 0.03 (0.00-0.03) X10*3/uL Absolute Neuts (auto) 4.2 (2.0-8.3) X10*3/uL Absolute Nucleated RBC 0.000 (0.0-0.012) X10*3/uL Nucleated RBC % (auto) 0.0 (0.0-0.2) /100WBC Sodium 135 (135-145) mmol/L Potassium 3.4 (3.3-5.1) mmol/L Chloride 98 (96-108) mmol/L Carbon Dioxide 23 (22-29) mmol/L Anion Gap 17 (12-20) BUN 6 L (9-16) mg/dL Creatinine 0.93 (0.5-1.4) mg/dL Estim Creat Clear Calc 104.5 Estimated GFR > 60 POC Glucose (60-115) mg/dL Random Glucose 497 H* (60-115) mg/dL Lactic Acid (0.5-2.0) mmol/L Lactic Acid Fup @ 2Hr (0.5-2.0) mmol/L Calcium 9.1 D (8.4-10.2) mg/dL Magnesium (1.6-2.6) mg/dL Total Bilirubin 0.6 (0.0-1.0) mg/dL AST 32 (5-37) U/L ALT 30 (0-40) U/L Alkaline Phosphatase 140 H (39-117) U/L B-Natriuretic Peptide (<100) pg/mL Total Protein 7.7 (6.5-8.0) g/dL Albumin 3.9 (3.5-5.0) g/dL Ethyl Alcohol mg/dL Acetone, Qual Negative (Negative) COVID-19 ([facility]I) (Negative) COVID-19 Clin Com 11/16/20 11/16/20 11/16/20 Range/Units 02:07 02:07 02:07 WBC (4.8-10.8) X10*3/uL RBC (4.60-5.80) X10*6/uL Hgb (14.0-18.0) g/dl Hct (42-52) % MCV (80-98) fL MCH (27.0-33.0) pg MCHC (31.0-36.0) g/dl RDW (11.0-16.0) % Plt Count (160-400) X10*3/uL MPV (9.4-12.4) fL Immature Gran % (Auto) (0.0-0.4) % Neut % (Auto) (45-73) % Lymph % (Auto) (20-40) % Woodruff % (Auto) (2-11) % Eos % (Auto) (0-4) % Baso % (Auto) (0-2) % Lymph # (Auto) (1.2-4.9) X10*3/uL Woodruff # (Auto) (0.1-1.2) X10*3/uL Eos # (Auto) (0.0-0.4) X10*3/uL Baso # (Auto) (0.0-0.2) X10*3/uL Abs Immat Gran (auto) (0.00-0.03) X10*3/uL Absolute Neuts (auto) (2.0-8.3) X10*3/uL Absolute Nucleated RBC (0.0-0.012) X10*3/uL Nucleated RBC % (auto) (0.0-0.2) /100WBC Sodium (135-145) mmol/L Potassium (3.3-5.1) mmol/L Chloride (96-108) mmol/L Carbon Dioxide (22-29) mmol/L Anion Gap (12-20) BUN (9-16) mg/dL Creatinine (0.5-1.4) mg/dL Estim Creat Clear Calc Estimated GFR POC Glucose (60-115) mg/dL Random Glucose (60-115) mg/dL Lactic Acid 2.3 H* (0.5-2.0) mmol/L Lactic Acid Fup @ 2Hr (0.5-2.0) mmol/L Calcium (8.4-10.2) mg/dL Magnesium 1.9 (1.6-2.6) mg/dL Total Bilirubin (0.0-1.0) mg/dL AST (5-37) U/L ALT (0-40) U/L Alkaline Phosphatase (39-117) U/L B-Natriuretic Peptide (<100) pg/mL Total Protein (6.5-8.0) g/dL Albumin (3.5-5.0) g/dL Ethyl Alcohol 256 mg/dL Acetone, Qual (Negative) COVID-19 ([facility]I) (Negative) COVID-19 Clin Com 11/16/20 11/16/20 11/16/20 Range/Units 02:07 02:09 05:18 WBC (4.8-10.8) X10*3/uL RBC (4.60-5.80) X10*6/uL Hgb (14.0-18.0) g/dl Hct (42-52) % MCV (80-98) fL MCH (27.0-33.0) pg MCHC (31.0-36.0) g/dl RDW (11.0-16.0) % Plt Count (160-400) X10*3/uL MPV (9.4-12.4) fL Immature Gran % (Auto) (0.0-0.4) % Neut % (Auto) (45-73) % Lymph % (Auto) (20-40) % Woodruff % (Auto) (2-11) % Eos % (Auto) (0-4) % Baso % (Auto) (0-2) % Lymph # (Auto) (1.2-4.9) X10*3/uL Woodruff # (Auto) (0.1-1.2) X10*3/uL Eos # (Auto) (0.0-0.4) X10*3/uL Baso # (Auto) (0.0-0.2) X10*3/uL Abs Immat Gran (auto) (0.00-0.03) X10*3/uL Absolute Neuts (auto) (2.0-8.3) X10*3/uL Absolute Nucleated RBC (0.0-0.012) X10*3/uL Nucleated RBC % (auto) (0.0-0.2) /100WBC Sodium (135-145) mmol/L Potassium (3.3-5.1) mmol/L Chloride (96-108) mmol/L Carbon Dioxide (22-29) mmol/L Anion Gap (12-20) BUN (9-16) mg/dL Creatinine (0.5-1.4) mg/dL Estim Creat Clear Calc Estimated GFR POC Glucose 422 H* (60-115) mg/dL Random Glucose (60-115) mg/dL Lactic Acid (0.5-2.0) mmol/L Lactic Acid Fup @ 2Hr 2.1 H* (0.5-2.0) mmol/L Calcium (8.4-10.2) mg/dL Magnesium (1.6-2.6) mg/dL Total Bilirubin (0.0-1.0) mg/dL AST (5-37) U/L ALT (0-40) U/L Alkaline Phosphatase (39-117) U/L B-Natriuretic Peptide 122 H (<100) pg/mL Total Protein (6.5-8.0) g/dL Albumin (3.5-5.0) g/dL Ethyl Alcohol mg/dL Acetone, Qual (Negative) COVID-19 ([facility]I) (Negative) COVID-19 Clin Com 11/16/20 11/16/20 Range/Units 06:16 06:30 WBC (4.8-10.8) X10*3/uL RBC (4.60-5.80) X10*6/uL Hgb (14.0-18.0) g/dl Hct (42-52) % MCV (80-98) fL MCH (27.0-33.0) pg MCHC (31.0-36.0) g/dl RDW (11.0-16.0) % Plt Count (160-400) X10*3/uL MPV (9.4-12.4) fL Immature Gran % (Auto) (0.0-0.4) % Neut % (Auto) (45-73) % Lymph % (Auto) (20-40) % Woodruff % (Auto) (2-11) % Eos % (Auto) (0-4) % Baso % (Auto) (0-2) % Lymph # (Auto) (1.2-4.9) X10*3/uL Woodruff # (Auto) (0.1-1.2) X10*3/uL Eos # (Auto) (0.0-0.4) X10*3/uL Baso # (Auto) (0.0-0.2) X10*3/uL Abs Immat Gran (auto) (0.00-0.03) X10*3/uL Absolute Neuts (auto) (2.0-8.3) X10*3/uL Absolute Nucleated RBC (0.0-0.012) X10*3/uL Nucleated RBC % (auto) (0.0-0.2) /100WBC Sodium (135-145) mmol/L Potassium (3.3-5.1) mmol/L Chloride (96-108) mmol/L Carbon Dioxide (22-29) mmol/L Anion Gap (12-20) BUN (9-16) mg/dL Creatinine (0.5-1.4) mg/dL Estim Creat Clear Calc Estimated GFR POC Glucose 336 H (60-115) mg/dL Random Glucose (60-115) mg/dL Lactic Acid (0.5-2.0) mmol/L Lactic Acid Fup @ 2Hr (0.5-2.0) mmol/L Calcium (8.4-10.2) mg/dL Magnesium (1.6-2.6) mg/dL Total Bilirubin (0.0-1.0) mg/dL AST (5-37) U/L ALT (0-40) U/L Alkaline Phosphatase (39-117) U/L B-Natriuretic Peptide (<100) pg/mL Total Protein (6.5-8.0) g/dL Albumin (3.5-5.0) g/dL Ethyl Alcohol mg/dL Acetone, Qual (Negative) COVID-19 (CH[facility]STI) Negative (Negative) COVID-19 Clin Com See Note ECG Data Attestation: I personally reviewed and interpreted this ECG as follows: Prior ECG tracings: available for review (11/09/2020 no acute changes on comparison) Interpretation: Atrial fibrillation with RVR, HR-117, no STEMI, QRS/QTC are within normal limits. Critical Care Time Critical Care Time Critical Care Time: Yes Total Critical Care Time: 30 Attestation: I personally attest to this time spent taking care of the patient. Discharge Plan Discharge Clinical Impression: CHF (congestive heart failure), Acidosis, lactic, Alcoholic intoxication, Hyperglycemia, Atrial fibrillation with RVR Patient Disposition: Admitted As Inpatient
[2020-11-16 02:32] LABS: Acetone, serum QL Negative (Negative)
[2020-11-16 02:34] LABS: Lactic Acid 2.3 mmol/L (0.5-2.0)
[2020-11-16 02:38] LABS: Ethanol 256 mg/dL
[2020-11-16 02:41] LABS: B Type Natriuretic Peptide 122 pg/mL (<100)
[2020-11-16 02:42] LABS: Magnesium 1.9 mg/dL (1.6-2.6)
[2020-11-16 02:46] LABS: Alanine Aminotransferase 30 U/L (0-40); Albumin Level 3.9 g/dL (3.5-5.0); Alkaline Phosphatase 140 U/L (39-117); Anion Gap 17 (12-20); Aspartate Amino Transferase 32 U/L (5-37); Bilirubin Total 0.6 mg/dL (0.0-1.0); Blood Urea Nitrogen 6 mg/dL (9-16); Calcium 9.1 mg/dL (8.4-10.2); Carbon Dioxide 23 mmol/L (22-29); Chloride 98 mmol/L (96-108); Creatinine Clr Calc Pharmacy 104.5; Estimated Glomerular Filt Rate > 60; Glucose Random 497 mg/dL (60-115); Potassium 3.4 mmol/L (3.3-5.1); Sodium 135 mmol/L (135-145); Total Protein 7.7 g/dL (6.5-8.0)
[2020-11-16] MEDS: Metoprolol Tartrate 5 MG/5 ML VIAL IVPUSH (02:59)
[2020-11-16 04:13] LABS: Reflex Lactate? Lactic Acid Added
[2020-11-16] MEDS: 0.9 % Sodium Chloride 500 ML 999 ML IV (04:18)
[2020-11-16 05:42] LABS: ~Lactic Acid-LAB USE ONLY 2.1 mmol/L (0.5-2.0)
[2020-11-16 06:24] LABS: Glucose, Whole Blood 336 mg/dL (60-115)
[2020-11-16] MEDS: Furosemide 100 MG/10 ML VIAL 60 MG IVPUSH (06:26)
--- NOTE | 2020-11-16 06:33 | PC.NURSE ---
Pt BGL POC reassessed, found to be 336. Dr Su made aware. Pt medicated per MAR with IV Lasix. Pt found to be incontinent of urine, incontinence care provided. Pt offers no complaints of pain/discomfort. Pt to CT for imaging.
[2020-11-16 06:48] LABS: COVID-19 Test Negative (Negative)
[2020-11-16] MEDS: iohexoL 350 MG/ML 100 ML INFUS..BTL 85 ML IV (06:57)
[2020-11-16 07:21] LABS: Reflex Lactate? 2 Y
--- NOTE | 2020-11-16 07:36 | PC.NURSE ---
report taken from gary rn resting comfortably in stretcher, rr even/unlabored on 1l nc. being admitted for chf exacerbation, had c/o sob. hr afib 110-120 bpm. see chart for i&os. vss att, awaiting bed assignment. breakfast tray at bedside. rac iv appears intact. nad.
[2020-11-16 11:40] LABS: Glucose Urine UA >=1000 MG/DL (NEG); Leukocyte Esterase Urine NEG (NEG); Nitrite Urine NEG (NEG); PH 5.5 (5.0-8.0); UACC Culture Trigger NO; Urine Blood 2+ (NEG); Urine Ketones NEG (NEG); Urine Protein TRACE MG/DL (NEG-TRACE)
[2020-11-16 11:44] LABS: Appearance Urine CLEAR; Color Urine STRAW
[2020-11-16 11:55] LABS: RBC Urine 0-2 /HPF (0); WBC Urine 0-2 /HPF (0-4)
--- NOTE | 2020-11-16 12:54 | PC.NURSE ---
pt still not seen by hospitalist, awaiting eval for inpt admission r/t sob, chf, afib. hospitalist service made aware of pt status, will be seen at 1300.
[2020-11-16 13:04] LABS: Glucose, Whole Blood 298 mg/dL (60-115)
[2020-11-16] MEDS: PHENobarbitaL sodium 130 MG/ML VIAL 292 MG IM (14:00)
[2020-11-16 14:08] LABS: Procalcitonin 0.02 ng/mL
--- NOTE | 2020-11-16 14:25 | P.HPHOSP_ITS ---
History of Present Illness Date of Service: 11/16/20 Chief Complaint: Shortness of breath and cough 60-year-old male with multiple comorbidities including diabetes, AFib, CHF- Patient was recently here for AFib with RVR, alcohol abuse: Came to the hospital because shortness of breath and some yellowish sputum. Patient says that he is having these symptoms from few days does not know how many. He is probably noncompliant patient with alcohol use drinks 10-12 beers a day as well as 2 nips of rum/day. He also takes lot of salt with food . He says that he was having cough for few days and also having some much short of breath and as well that as some pleuritic chest tightness with cough, reproducible, right side of the chest. He reports some chills at home otherwise no fever. Unsure whether he gained any weight. Legs are swelling as per patient . Denies any other systemic complaints including nausea, vomiting, diarrhea, fever, weakness, numbness. ? Also unclear his medication compliance. Review of Systems Review of Systems: cough for few days and also having some much short of breath and as well that as some pleuritic chest tightness with cough, reproducible, right side of the chest. He reports some chills at home otherwise no fever. Legs are swelling as per patient . Denies any other systemic complaints including nausea, vomiting, diarrhea, fever, weakness, numbness. No skin rashes or otorrhea or rhinorrhea. FOR[facility]LY [facility] Medical History A-fib Alcohol use disorder, severe, dependence Atrial fibrillation, rapid CAD (coronary artery disease) Cardiomyopathy CHF (congestive heart failure) Cirrhosis Depression Diabetes ETOH abuse HTN (hypertension) Social History Household Members: Unknown / Unable to assess Housing: Apartment Housing Other:: rents room Do you presently have visiting nurse or other home services: No Unable to assess alcohol history related to: Refusing to respond Alcohol intake: current Alcohol intake frequency: 3 or more drinks per day Alcohol type: beer and hard liquor Patient Tobacco Use Status: Current everyday Tobacco user Second Hand Smoke Exposure: No Advance Directives: No Advance Directives Information Provided: No service: No Current occupational status: unemployed and disabled Meds Allergies Allergy/AdvReac Type Severity Reaction Status Date / Time Penicillins [PCN] Allergy Unknown UNKNOWN Verified 09/03/20 16:05 Active Medications: Current Medications Generic Name Dose Route Start Last Admin Trade Name Freakbar PRN Reason Stop Dose Admin Enoxaparin Sodium 40 mg 11/16/20 14:30 Enoxaparin Sodium 40 Mg/0.4 Ml Syringe SUBCUT Q24H [facility] Furosemide 40 mg 11/16/20 21:00 Furosemide 40 Mg/4 Ml Vial IVPUSH BID [facility] Protocol Insulin Human Lispro 0 unit 11/16/20 16:30 Insulin Lispro 100 Unit/Ml 3 Ml Vial SUBCUT QIDACHS [facility] Protocol Medication 1 each 11/17/20 09:00 No Benzodiazepines MISCELLANE DAILY [facility] Pharmacy Consult 1 each 11/16/20 14:14 Consult Rx Perform Med Rec MISCELLANE ONCE PRN Consult order Phenobarbital 45 mg 11/17/20 09:00 Phenobarbital 15 Mg Tablet PO 11/18/20 21:01 BID [facility] Phenobarbital 15 mg 11/19/20 09:00 Phenobarbital 15 Mg Tablet PO 11/20/20 21:01 BID [facility] Phenobarbital 15 mg 11/21/20 09:00 Phenobarbital 15 Mg Tablet PO 11/22/20 09:01 DAILY [facility] Phenobarbital Sodium 219 mg 11/16/20 17:00 Phenobarbital Sodium 130 Mg/Ml Vial IM 11/16/20 20:01 1700,2000 [facility] Home Medications Medication Instructions Recorded Confirmed Last Taken Type atorvastatin 40 mg tablet 1 tab PO BEDTIME 09/11/20 11/09/20 11/02/20 History gabapentin 400 mg capsule 1 cap PO TID 09/11/20 11/09/20 11/02/20 History insulin glargine 100 unit/mL (3 6 unit SUBCUT QAM 09/11/20 11/07/20 11/02/20 History mL) subcutaneous pen (Lantus Solostar U-100 Insulin) metformin 1,000 mg tablet 1 tab PO BID 09/11/20 11/09/20 11/02/20 History trazodone 50 mg tablet 1 tab PO BEDTIME 09/11/20 11/09/20 11/01/20 History Physical Exam Vital Signs and Narrative: Vital Signs: Last Vital Signs Temp 98.9 F 11/16/20 12:16 Pulse 115 H 07/29/21 12:53 Resp 20 11/16/20 12:16 BP 150/102 H 11/16/20 12:16 Pulse Ox 98 11/16/20 12:53 Body Mass Index 33.7 physical exam: Const:?? General: no acute distress, alert an d awake?, pleaasan t, HENMT:?? Head: Yes normocep halic and Yes atra umatic Eyes:?? Sclerae: sclerae n ormal Chest:?? Chest palpation & inspection: normal inspection of the chest Resp:?? grossly clear to a uscultation bilate rally, diminished breath, sounds at bases. Few scatte red rales. Cardio:?? Rate: tachycardic? Rhythm: abnormal rhythm irregularly irregular GI:?? Palpation (GI): So ft to palpation an d nontender Skin:?? Other: area of ecc hymosis left flank Neuro:?? Cranial nerves: Ye s CN's II-XII inta ct bilaterally and Yes Bilaterally i ntact EOM present Extrem:?? Other: Venous loli is changes bilater al lower extremiti es with varicositi es Results Labs CBC and Chem 7: 11/16/20 02:07 11/16/20 02:07 Labs: Laboratory Results - last 24 hr 11/16/20 11/16/20 11/16/20 02:07 02:07 02:07 MCV 96.5 MCH 31.6 MCHC 32.8 RDW 14.5 Plt Count 121 L MPV 9.7 Immature Gran % (Auto) 0.5 H Neut % (Auto) 64.1 Lymph % (Auto) 22.2 Alexander % (Auto) 10.3 Eos % (Auto) 2.3 Baso % (Auto) 0.6 Lymph # (Auto) 1.5 Alexander # (Auto) 0.7 Eos # (Auto) 0.2 Baso # (Auto) 0.0 Abs Immat Gran (auto) 0.03 Absolute Neuts (auto) 4.2 Absolute Nucleated RBC 0.000 Nucleated RBC % (auto) 0.0 Anion Gap 17 Estim Creat Clear Calc 104.5 Estimated GFR > 60 POC Glucose Random Glucose 497 H* Lactic Acid Lactic Acid Fup @ 2Hr Lactic Acid Fup @ 4Hr Calcium 9.1 D Magnesium Total Bilirubin 0.6 AST 32 ALT 30 Alkaline Phosphatase 140 H B-Natriuretic Peptide Total Protein 7.7 Albumin 3.9 Procalcitonin Urine Color Urine Appearance Urine pH Ur Specific Arden Urine Protein Urine Glucose (UA) Urine Ketones Urine Blood Urine Nitrite Ur Leukocyte Esterase Urine RBC Urine WBC Ur Squamous Epith Cells Urine Bacteria Urine Yeast Ethyl Alcohol Acetone, Qual Negative COVID-19 ([facility]) COVID-19 Clin Com 11/16/20 11/16/20 11/16/20 02:07 02:07 02:07 MCV MCH MCHC RDW Plt Count MPV Immature Gran % (Auto) Neut % (Auto) Lymph % (Auto) Alexander % (Auto) Eos % (Auto) Baso % (Auto) Lymph # (Auto) Alexander # (Auto) Eos # (Auto) Baso # (Auto) Abs Immat Gran (auto) Absolute Neuts (auto) Absolute Nucleated RBC Nucleated RBC % (auto) Anion Gap Estim Creat Clear Calc Estimated GFR POC Glucose Random Glucose Lactic Acid 2.3 H* Lactic Acid Fup @ 2Hr Lactic Acid Fup @ 4Hr Calcium Magnesium 1.9 Total Bilirubin AST ALT Alkaline Phosphatase B-Natriuretic Peptide Total Protein Albumin Procalcitonin Urine Color Urine Appearance Urine pH Ur Specific Arden Urine Protein Urine Glucose (UA) Urine Ketones Urine Blood Urine Nitrite Ur Leukocyte Esterase Urine RBC Urine WBC Ur Squamous Epith Cells Urine Bacteria Urine Yeast Ethyl Alcohol 256 Acetone, Qual COVID-19 ([facility]) COVID-19 Clin Com 11/16/20 11/16/20 11/16/20 02:07 02:07 02:09 MCV MCH MCHC RDW Plt Count MPV Immature Gran % (Auto) Neut % (Auto) Lymph % (Auto) Alexander % (Auto) Eos % (Auto) Baso % (Auto) Lymph # (Auto) Alexander # (Auto) Eos # (Auto) Baso # (Auto) Abs Immat Gran (auto) Absolute Neuts (auto) Absolute Nucleated RBC Nucleated RBC % (auto) Anion Gap Estim Creat Clear Calc Estimated GFR POC Glucose 422 H* Random Glucose Lactic Acid Lactic Acid Fup @ 2Hr Lactic Acid Fup @ 4Hr Calcium Magnesium Total Bilirubin AST ALT Alkaline Phosphatase B-Natriuretic Peptide 122 H Total Protein Albumin Procalcitonin 0.02 Urine Color Urine Appearance Urine pH Ur Specific Arden Urine Protein Urine Glucose (UA) Urine Ketones Urine Blood Urine Nitrite Ur Leukocyte Esterase Urine RBC Urine WBC Ur Squamous Epith Cells Urine Bacteria Urine Yeast Ethyl Alcohol Acetone, Qual COVID-19 ([facility]) COVID-19 Clin Com 11/16/20 11/16/20 11/16/20 05:18 06:16 06:30 MCV MCH MCHC RDW Plt Count MPV Immature Gran % (Auto) Neut % (Auto) Lymph % (Auto) Alexander % (Auto) Eos % (Auto) Baso % (Auto) Lymph # (Auto) Alexander # (Auto) Eos # (Auto) Baso # (Auto) Abs Immat Gran (auto) Absolute Neuts (auto) Absolute Nucleated RBC Nucleated RBC % (auto) Anion Gap Estim Creat Clear Calc Estimated GFR POC Glucose 336 H Random Glucose Lactic Acid Lactic Acid Fup @ 2Hr 2.1 H* Lactic Acid Fup @ 4Hr Calcium Magnesium Total Bilirubin AST ALT Alkaline Phosphatase B-Natriuretic Peptide Total Protein Albumin Procalcitonin Urine Color Urine Appearance Urine pH Ur Specific Arden Urine Protein Urine Glucose (UA) Urine Ketones Urine Blood Urine Nitrite Ur Leukocyte Esterase Urine RBC Urine WBC Ur Squamous Epith Cells Urine Bacteria Urine Yeast Ethyl Alcohol Acetone, Qual COVID-19 ([facility]) Negative COVID-19 [facility] Com See Note 11/16/20 11/16/20 11/16/20 08:50 11:32 13:01 MCV MCH MCHC RDW Plt Count MPV Immature Gran % (Auto) Neut % (Auto) Lymph % (Auto) Alexander % (Auto) Eos % (Auto) Baso % (Auto) Lymph # (Auto) Alexander # (Auto) Eos # (Auto) Baso # (Auto) Abs Immat Gran (auto) Absolute Neuts (auto) Absolute Nucleated RBC Nucleated RBC % (auto) Anion Gap Estim Creat Clear Calc Estimated GFR POC Glucose 298 H Random Glucose Lactic Acid Lactic Acid Fup @ 2Hr Lactic Acid Fup @ 4Hr 2.0 Calcium Magnesium Total Bilirubin AST ALT Alkaline Phosphatase B-Natriuretic Peptide Total Protein Albumin Procalcitonin Urine Color STRAW Urine Appearance CLEAR Urine pH 5.5 Ur Specific Arden 1.010 Urine Protein TRACE Urine Glucose (UA) >=1000 H Urine Ketones NEG Urine Blood 2+ H Urine Nitrite NEG Ur Leukocyte Esterase NEG Urine RBC 0-2 Urine WBC 0-2 Ur Squamous Epith Cells NONE Urine Bacteria NONE Urine Yeast TRACE Ethyl Alcohol Acetone, Qual COVID-19 ([facility]) COVID-19 Clin Com Imaging Radiologist's Impressions: Impressions Abdomen/Pelvis CT 11/16/20 06:05 IMPRESSION: 1. Multifocal airspace disease of the lungs predominantly within the right upper pulmonary lobe, right middle pulmonary lobe and to a lesser degree the right lower pulmonary lobe. Findings are slightly diminished in prominence compared with CT the thorax 08/27/2020. Findings on the 08/27/2020 examination were attributed to the sequela of viral pneumonitis. Current findings could represent resolving or recrudescent infection. 2. Findings suspicious for cirrhosis. Caudate lobe hypertrophy and hepatic capsular contour nodular regularity is present suspicious for cirrhosis. No ascites. Patent portal vein. Mild-moderate anterior abdominal wall subcutaneous varices which may indicate underlying portosystemic shunting and portal hypertension. 3. Bilateral gynecomastia secondary to underlying atelectasis function. 4. Bilateral seminal vesicle calcifications which may represent the sequela of long-standing diabetes mellitus. 5. Moderate diffuse peripheral and coronary artery calcific atherosclerosis. 6. Mild diverticulosis. 7. Distended urinary bladder. Chest CT 11/16/20 06:05 IMPRESSION: 1. Multifocal airspace disease of the lungs predominantly within the right upper pulmonary lobe, right middle pulmonary lobe and to a lesser degree the right lower pulmonary lobe. Findings are slightly diminished in prominence compared with CT the thorax 08/27/2020. Findings on the 08/27/2020 examination were attributed to the sequela of viral pneumonitis. Current findings could represent resolving or recrudescent infection. 2. Findings suspicious for cirrhosis. Caudate lobe hypertrophy and hepatic capsular contour nodular regularity is present suspicious for cirrhosis. No ascites. Patent portal vein. Mild-moderate anterior abdominal wall subcutaneous varices which may indicate underlying portosystemic shunting and portal hypertension. 3. Bilateral gynecomastia secondary to underlying atelectasis function. 4. Bilateral seminal vesicle calcifications which may represent the sequela of long-standing diabetes mellitus. 5. Moderate diffuse peripheral and coronary artery calcific atherosclerosis. 6. Mild diverticulosis. 7. Distended urinary bladder. Assessment and Plan (1) Alcoholic intoxication: Status: Acute (2) Cardiomyopathy: Status: Acute (3) Acidosis, lactic: Status: Acute (4) CHF (congestive heart failure): Status: Acute 60-year-old male with a past medical history of systolic heart failure, atrial fibrillation with multiple episodes of rapid ventricular response, alcohol abuse and dependence with prior withdrawal symptoms and uncontrolled diabetes who presents to the hospital with complaints of alcohol intoxication.? Unfortunately he has gone into rapid AFib. 1. Alcohol withdrawal and dependence has some tremers likely contributing to above use phenobarb per protocol monitor lytes alcohol cessation as been advised will get CARE team cnsult 2.acute on ch probbale systolic chf: Continue IV Lasix Daily weights I&O Troponinx1 even though chest tightness probably atypical BNP Procalcitonin 3. AFib with RVr Suspected persistent AFib? hr still in 110-120 range, question if alcohol contributing. Discontinue Cardizem good in light of his known reduced EF Increases baseline metoprolol 50 mg q.6 Not on anticoagulation due to his noncompliance and chronic alcoholism Does not appear to be in CHF at this time 4. Uncontrolled DM due to non-compliance with meds basal + bolus Acidosis probably factorial-alcohol, uncontrolled diabetes: Trending down, will avoid repeating unless any clinical deterioration. 5. Chronic HFrEF continue baseline meds including diuretics 6. urinary bladder distension: ? straight cath also i/o may need castorena Quality Stroke Does the patient have a stroke diagnosis?: No VTE Prior VTE?: No VTE Risk Level:: Medical - moderate - high VTE Device Contraindication: N/A - Device Ordered VTE Drug Contraindication: N/A - Med Ordered
[2020-11-16 15:19] LABS: Troponin-I High Sensitivity 39.3 ng/L (<3.5-35.0)
--- NOTE | 2020-11-16 15:19 | PHA.MEDREC ---
Pharmacy Consult ? Medication Reconciliation Pharmacy has completed the medication reconciliation.
[2020-11-16] MEDS: Insulin Glargine,Hum.rec.anlog 100 UNIT/ML 10 ML VIAL 6 UNIT SUBCUT (16:18)
[2020-11-16] MEDS: Metoprolol Tartrate 50 MG TABLET PO ×2 (17:27→20:23)
[2020-11-16] MEDS: PHENobarbitaL sodium 130 MG/ML VIAL 219 MG IM ×2 (17:27→20:22)
[2020-11-16] MEDS: Furosemide 40 MG/4 ML VIAL IVPUSH (17:27)
[2020-11-16] MEDS: Enoxaparin Sodium 40 MG/0.4 ML SYRINGE SUBCUT (17:28)
[2020-11-16] MEDS: Atorvastatin Calcium 40 MG TABLET PO (20:23)
[2020-11-16] MEDS: traZODone HCL 50 MG TABLET PO (20:23)
[2020-11-16] MEDS: Gabapentin 400 MG CAPSULE PO (20:23)
[2020-11-16] MEDS: Aspirin Enteric Coated 81 MG TABLET.DR PO (20:23)
[2020-11-16 20:27] LABS: Glucose, Whole Blood 289 mg/dL (60-115)
[2020-11-16] MEDS: 0.9 % Sodium Chloride Flush 3 ML SYRINGE IVFLUSH (21:44)
[2020-11-17] VITALS (10 sets, daily range): BP systolic 116–138; BP diastolic 67–86; PULSE 74–103; RESP 16–20; TEMP 36.1–37.4; O2SAT 95–100; BMI 37.1
[2020-11-17 06:07] LABS: Hematocrit 34.3 % (42-52); Hemoglobin 10.9 g/dl (14.0-18.0); Mean Corpuscular HGB Conc 31.8 g/dl (31.0-36.0); Mean Corpuscular Volume 97.4 fL (80-98); Mean Platelet Volume 10.8 fL (9.4-12.4); Platelet Count 125 X10*3/uL (160-400); Red Blood Count 3.52 X10*6/uL (4.60-5.80); Red Cell Distribution Width 14.4 % (11.0-16.0); White Blood Count 7.3 X10*3/uL (4.8-10.8)
[2020-11-17 06:42] LABS: B Type Natriuretic Peptide 307 pg/mL (<100)
[2020-11-17 07:38] LABS: Glucose, Whole Blood 264 mg/dL (60-115)
[2020-11-17] MEDS: Insulin Lispro 100 UNIT/ML 3 ML VIAL SUBCUT ×4 (08:00→22:00)
--- NOTE | 2020-11-17 08:51 | HO.PM.IMPN ---
Subjective Subjective Date of Service: 11/17/20 Interval History: Alcohol withdrawal, AFib with RVR, CHF exacerbation. Review of Systems Patient's issue breath improving also seems somewhat tremulous but otherwise feeling better than yesterday Denies any chest pain or shortness of breath or abdominal pain or fever or chills . Has some cough with yellow sputum Physical Exam Vital Signs: Vital Signs: Last Vital Signs Temp 97.2 F 11/17/20 07:17 Pulse 90 11/17/20 07:17 Resp 16 11/17/20 07:17 BP 138/86 11/17/20 07:17 Pulse Ox 100 11/17/20 07:17 Body Mass Index 37.1 Physical exam: Cvs: Irregular rhythm, [id number] , no murmur res: Fair air entry, breath sounds slightly decreased at bases no rales or wheezing. abd: no rebound or guarding ,nt, bs present. ext pulses present , no cyanosis , 1+ edema neuro: axo3 , nonfocal. Objective Data Current Medications Generic Name Dose Route Start Last Admin Trade Name Batsheva PRN Reason Stop Dose Admin Aspirin 81 mg 11/17/20 09:00 Aspirin Enteric Coated 81 Mg Tablet. PO DAILY FRANKY Atorvastatin Calcium 40 mg 11/16/20 21:00 11/16/20 20:23 Atorvastatin Calcium 40 Mg Tablet PO 40 mg BEDTIME FRANKY Administration Enoxaparin Sodium 40 mg 11/16/20 18:00 11/16/20 17:28 Enoxaparin Sodium 40 Mg/0.4 Ml Syringe SUBCUT 40 mg Q24H FRANKY Administration Folic Acid 1 mg 11/17/20 09:00 Folic Acid 1 Mg Tablet PO DAILY FRANKY Folic Acid 1 mg 11/17/20 09:00 Folic Acid 1 Mg Tablet PO DAILY FRANKY Furosemide 40 mg 11/16/20 18:00 11/16/20 17:27 Furosemide 40 Mg/4 Ml Vial IVPUSH 40 mg BID@0800,1800 FRANKY Administration Protocol Gabapentin 400 mg 11/16/20 21:00 11/16/20 20:23 Gabapentin 400 Mg Capsule PO 400 mg TID FRANKY Administration Insulin Glargine 6 unit 11/16/20 15:00 11/16/20 16:18 Insulin Glargine,Hum.Rec.Anlog 100 Unit/Ml 10 Ml Vial SUBCUT 6 unit DAILY FRANKY Administration Insulin Human Lispro 0 unit 11/16/20 16:30 11/16/20 20:32 Insulin Lispro 100 Unit/Ml 3 Ml Vial SUBCUT Not Given QIDACHS [facility] Protocol Medication 1 each 11/17/20 09:00 No Benzodiazepines MISCELLANE DAILY [facility] Metoprolol Tartrate 50 mg 11/16/20 17:00 11/16/20 20:23 Metoprolol Tartrate 50 Mg Tablet PO 50 mg QID [facility] Administration Protocol Multivitamins/Vitamin C 1 tab 11/17/20 09:00 Multivitamin Tablet PO DAILY [facility] Pharmacy Consult 1 each 11/16/20 14:14 Consult Rx Perform Med Rec MISCELLANE ONCE PRN Consult order Phenobarbital 45 mg 11/17/20 09:00 Phenobarbital 15 Mg Tablet PO 11/18/20 21:01 BID [facility] Phenobarbital 15 mg 11/19/20 09:00 Phenobarbital 15 Mg Tablet PO 11/20/20 21:01 BID [facility] Phenobarbital 15 mg 11/21/20 09:00 Phenobarbital 15 Mg Tablet PO 11/22/20 09:01 DAILY [facility] Sodium Chloride 3 ml 11/16/20 16:00 11/16/20 21:44 0.9 % Sodium Chloride Flush 3 Ml Syringe IVFLUSH 3 ml QSHIFT [facility] Administration Thiamine HCl 100 mg 11/17/20 09:00 Thiamine Hcl 100 Mg Tablet PO DAILY [facility] Thiamine HCl 100 mg 11/17/20 09:00 Thiamine Hcl 100 Mg Tablet PO DAILY [facility] Trazodone HCl 50 mg 11/16/20 19:17 11/16/20 20:23 Trazodone Hcl 50 Mg Tablet PO 50 mg BEDTIME PRN Administration Insomnia Labs CBC & Chem 7: 11/17/20 05:18 11/16/20 02:07 Labs: Laboratory Results - last 24 hr 11/16/20 11/16/20 11/16/20 02:07 08:50 11:32 MCV MCH MCHC RDW Plt Count MPV Absolute Nucleated RBC Nucleated RBC % (auto) Anion Gap Estim Creat Clear Calc Estimated GFR POC Glucose Random Glucose Lactic Acid Fup @ 4Hr 2.0 Calcium Troponin I High Sens B-Natriuretic Peptide Procalcitonin 0.02 Urine Color STRAW Urine Appearance CLEAR Urine pH 5.5 Ur Specific [place] 1.010 Urine Protein TRACE Urine Glucose (UA) >=1000 H Urine Ketones NEG Urine Blood 2+ H Urine Nitrite NEG Ur Leukocyte Esterase NEG Urine RBC 0-2 Urine WBC 0-2 Ur Squamous Epith Cells NONE Urine Bacteria NONE Urine Yeast TRACE 11/16/20 11/16/20 11/16/20 13:01 14:36 18:01 MCV MCH MCHC RDW Plt Count MPV Absolute Nucleated RBC Nucleated RBC % (auto) Anion Gap Estim Creat Clear Calc Estimated GFR POC Glucose 298 H Random Glucose Lactic Acid Fup @ 4Hr Calcium Troponin I High Sens 39.3 H* 80.0 H* D B-Natriuretic Peptide Procalcitonin Urine Color Urine Appearance Urine pH Ur Specific [place] Urine Protein Urine Glucose (UA) Urine Ketones Urine Blood Urine Nitrite Ur Leukocyte Esterase Urine RBC Urine WBC Ur Squamous Epith Cells Urine Bacteria Urine Yeast 11/16/20 11/17/20 11/17/20 19:35 05:18 05:18 MCV 97.4 MCH 31.0 MCHC 31.8 RDW 14.4 Plt Count 125 L MPV 10.8 Absolute Nucleated RBC 0.000 Nucleated RBC % (auto) 0.0 Anion Gap 13 Estim Creat Clear Calc 132.6 Estimated GFR > 60 POC Glucose 289 H Random Glucose 292 H D Lactic Acid Fup @ 4Hr Calcium 8.6 Troponin I High Sens B-Natriuretic Peptide Procalcitonin Urine Color Urine Appearance Urine pH Ur Specific [place] Urine Protein Urine Glucose (UA) Urine Ketones Urine Blood Urine Nitrite Ur Leukocyte Esterase Urine RBC Urine WBC Ur Squamous Epith Cells Urine Bacteria Urine Yeast 11/17/20 11/17/20 05:18 07:35 MCV MCH MCHC RDW Plt Count MPV Absolute Nucleated RBC Nucleated RBC % (auto) Anion Gap Estim Creat Clear Calc Estimated GFR POC Glucose 264 H Random Glucose Lactic Acid Fup @ 4Hr Calcium Troponin I High Sens B-Natriuretic Peptide 307 H Procalcitonin Urine Color Urine Appearance Urine pH Ur Specific [place] Urine Protein Urine Glucose (UA) Urine Ketones Urine Blood Urine Nitrite Ur Leukocyte Esterase Urine RBC Urine WBC Ur Squamous Epith Cells Urine Bacteria Urine Yeast Microbiology Microbiology Results: Microbiology 11/16/20 02:07 Blood Culture - Preliminary Blood - Venous No growth after 24 hours. 11/16/20 02:07 Blood Culture - Preliminary Blood - Venous No growth after 24 hours. Assessment and Plan (1) Atrial fibrillation with RVR: Status: Acute (2) CHF exacerbation: Status: Acute Assessment and Plan: 60-year-old male with a past medical history of systolic heart failure, atrial fibrillation with multiple episodes of rapid ventricular response, alcohol abuse and dependence with prior withdrawal symptoms and uncontrolled diabetes who presents to the hospital with complaints of alcohol intoxication.? Unfortunately he has gone into rapid AFib. 1. Alcohol withdrawal and dependence has some tremers likely contributing to above ?use phenobarb per protocol,monitor lytes alcohol cessation as been advised CARE team cnsult 2.acute on ch? probbale systolic chf: Continue IV Lasix Daily weights I&O Troponinx1 even though chest tightness probably atypical BNP moniter 3. Possible bronchitis: Has cough with phlegm Procalcitonin low Will add p.o. azithromycin. 3. AFib with RVr Suspected persistent AFib? hr improvinge, question if alcohol contributing. Discontinue Cardizem good in light of his known reduced EF Increases baseline metoprolol? 50 mg q.6 Not on anticoagulation due to his noncompliance and chronic alcoholism 4. Uncontrolled DM due to non-compliance with meds basal + bolus adjusted Acidosis probably factorial-alcohol, uncontrolled diabetes:? Trending down, will avoid repeating unless any clinical deterioration. 5. urinary bladder distension: has need castorena need voiding trial in 1-2 days Quality Stroke Does the patient have a stroke diagnosis?: No VTE Prior VTE?: No VTE Risk Level:: Medical - moderate - high VTE Device Contraindication: N/A - Device Ordered VTE Drug Contraindication: N/A - Med Ordered
[2020-11-17] MEDS: 0.9 % Sodium Chloride Flush 3 ML SYRINGE IVFLUSH (09:10)
[2020-11-17] MEDS: Furosemide 40 MG/4 ML VIAL IVPUSH ×2 (09:10→17:22)
[2020-11-17] MEDS: Gabapentin 400 MG CAPSULE PO ×3 (09:10→19:44)
[2020-11-17] MEDS: Aspirin Enteric Coated 81 MG TABLET.DR PO (09:10)
[2020-11-17] MEDS: Folic Acid 1 MG TABLET PO ×2 (09:10)
[2020-11-17] MEDS: Insulin Glargine,Hum.rec.anlog 100 UNIT/ML 10 ML VIAL 6 UNIT SUBCUT (09:10)
[2020-11-17] MEDS: Multivitamin TABLET 1 TAB PO (09:11)
[2020-11-17] MEDS: PHENobarbitaL 15 MG TABLET 45 MG PO ×2 (09:11→19:43)
[2020-11-17] MEDS: Thiamine HCL 100 MG TABLET PO ×2 (09:11)
[2020-11-17] MEDS: Metoprolol Tartrate 50 MG TABLET PO ×4 (09:11→20:10)
--- NOTE | 2020-11-17 11:06 | PC.NURSE ---
Skin assessment completed today. Patient has bilateral lower extremity discoloration with various spider nevi. No open areas. Bruising throughout body. No other skin issues noted.
[2020-11-17 11:38] LABS: Glucose, Whole Blood 263 mg/dL (60-115)
--- NOTE | 2020-11-17 12:03 | P.CONCA_ITS ---
History of Present Illness History of Present Illness Date of Service: 11/17/20 Consult reason: atrial fibrillation and congestive heart failure Chief complaint: CHF Narrative: This is a cardiology consultation regarding atrial fibrillation and congestive heart failure. He has a history of severe cardiomyopathy with LVEF in the 15-20% zone. He also has chronic atrial fibrillation. He also does not have any stable home and has alcohol abuse too. Current admission is for multiple complaints including shortness of breath, elevation phlegm, tiredness, weakness and various nonspecific symptoms. We have been asked to assess his cardiac status and optimize his care. As discussed above, he has persistent atrial fibrillation and severe cardiomyopathy. He also has significant coronary artery disease. He underwent cardiac catheterization in 2016 with PCI to distal RCA. At that time, he had occlusion of RPLV and moderate disease in LAD/RCA; severe disease in OM2. These are all being medically managed. Review of Systems Review of Systems: Yes all other systems are reviewed and are negative Cardiovascular: Cardiovascular: Reports as per HPI, Reports no additional cardiovascular complaints, Denies acrocyanosis, Denies cool extremities, Denies painful fingertips, Reports chest pain, Denies chest pain at rest, Denies diaphoresis, Denies syncope, Denies irregular heart rhythm, Denies claudication, Denies leg edema, Denies lightheadedness, Denies palpitations and Reports dyspnea Respiratory: Respiratory: Reports dyspnea Neurologic: Denies syncope Endocrine: Endocrine: Denies palpitations [facility] Past Medical History Medical History A-fib Alcohol use disorder, severe, dependence Atrial fibrillation, rapid CAD (coronary artery disease) Cardiomyopathy CHF (congestive heart failure) Cirrhosis Depression Diabetes ETOH abuse HTN (hypertension) Family History Pertinent family history: No significant family history pertinent to this admission. Social History Social History Household Members: None Housing: Homeless Housing Other:: rents room Do you presently have visiting nurse or other home services: No Unable to assess alcohol history related to: Refusing to respond Alcohol intake: current Alcohol intake frequency: 3 or more drinks per day Alcohol type: beer and hard liquor Patient Tobacco Use Status: Current everyday Tobacco user Smoked in Last 30 Days: Yes Patient Interested in Nicotine Replacement: No Patient Given Instructions on How to Stop Smoking: Yes Date Education Initiated: 11/16/20 Second Hand Smoke Exposure: No Use of substances other than those prescribed or required for medical reasons: Unknown Currently Displaying Signs/Symptoms of Drug Intoxication Withdrawal: No Have you been hit, kicked, punched, or otherwise hurt by someone within the past year? If so, by whom?: No Do you feel safe in your current relationship?: No Current Relationship Is there a partner from a previous relationship who is making you feel unsafe now?: No Are you made to feel afraid or neglected: No Advance Directives: No Advance Directives Information Provided: No Do you have thoughts of harming others: None Do you have a plan to hurt others: No Plan Recently lost weight without trying: No Nutrition Risks: No Nutritional Risk service: No Current occupational status: unemployed and disabled Meds Allergies Allergy/AdvReac Type Severity Reaction Status Date / Time Penicillins [PCN] Allergy Unknown UNKNOWN Verified 09/03/20 16:05 Active Medications: Current Medications Generic Name Dose Route Start Last Admin Trade Name Freq PRN Reason Stop Dose Admin Aspirin 81 mg 11/17/20 09:00 11/17/20 09:10 Aspirin Enteric Coated 81 Mg Tablet. PO 81 mg DAILY FRANKY Administration Atorvastatin Calcium 40 mg 11/16/20 21:00 11/16/20 20:23 Atorvastatin Calcium 40 Mg Tablet PO 40 mg BEDTIME FRANKY Administration Enoxaparin Sodium 40 mg 11/16/20 18:00 11/16/20 17:28 Enoxaparin Sodium 40 Mg/0.4 Ml Syringe SUBCUT 40 mg Q24H FRANKY Administration Folic Acid 1 mg 11/17/20 09:00 11/17/20 09:10 Folic Acid 1 Mg Tablet PO 1 mg DAILY FRANKY Administration Folic Acid 1 mg 11/17/20 09:00 11/17/20 09:10 Folic Acid 1 Mg Tablet PO 1 mg DAILY FRANKY Administration Furosemide 40 mg 11/16/20 18:00 11/17/20 09:10 Furosemide 40 Mg/4 Ml Vial IVPUSH 40 mg BID@0800,1800 FRANKY Administration Protocol Gabapentin 400 mg 11/16/20 21:00 11/17/20 09:10 Gabapentin 400 Mg Capsule PO 400 mg TID FRANKY Administration Insulin Glargine 6 unit 11/16/20 15:00 11/17/20 09:10 Insulin Glargine,Hum.Rec.Anlog 100 Unit/Ml 10 Ml Vial SUBCUT 6 unit DAILY [facility] Administration Insulin Human Lispro 0 unit 11/16/20 16:30 11/17/20 11:43 Insulin Lispro 100 Unit/Ml 3 Ml Vial SUBCUT 6 unit QIDACHS [facility] Administration Protocol Medication 1 each 11/17/20 09:00 No Benzodiazepines MISCELLANE DAILY [facility] Metoprolol Tartrate 50 mg 11/16/20 17:00 11/17/20 09:11 Metoprolol Tartrate 50 Mg Tablet PO 50 mg QID [facility] Administration Protocol Multivitamins/Vitamin C 1 tab 11/17/20 09:00 11/17/20 09:11 Multivitamin Tablet PO 1 tab DAILY [facility] Administration Pharmacy Consult 1 each 11/16/20 14:14 Consult Rx Perform Med Rec MISCELLANE ONCE PRN Consult order Phenobarbital 45 mg 11/17/20 09:00 11/17/20 09:11 Phenobarbital 15 Mg Tablet PO 11/18/20 21:01 45 mg BID [facility] Administration Phenobarbital 15 mg 11/19/20 09:00 Phenobarbital 15 Mg Tablet PO 11/20/20 21:01 BID [facility] Phenobarbital 15 mg 11/21/20 09:00 Phenobarbital 15 Mg Tablet PO 11/22/20 09:01 DAILY [facility] Sodium Chloride 3 ml 11/16/20 16:00 11/17/20 09:10 0.9 % Sodium Chloride Flush 3 Ml Syringe IVFLUSH 3 ml QSHIFT [facility] Administration Thiamine HCl 100 mg 11/17/20 09:00 11/17/20 09:11 Thiamine Hcl 100 Mg Tablet PO 100 mg DAILY [facility] Administration Thiamine HCl 100 mg 11/17/20 09:00 11/17/20 09:11 Thiamine Hcl 100 Mg Tablet PO 100 mg DAILY [facility] Administration Trazodone HCl 50 mg 11/16/20 19:17 11/16/20 20:23 Trazodone Hcl 50 Mg Tablet PO 50 mg BEDTIME PRN Administration Insomnia Home Medications Medication Instructions Recorded Confirmed Last Taken Type atorvastatin 40 mg tablet 1 tab PO BEDTIME 09/11/20 11/16/20 11/14/20 History gabapentin 400 mg capsule 1 cap PO TID 09/11/20 11/16/20 11/14/20 History metformin 1,000 mg tablet 1 tab PO BID 09/11/20 11/16/20 11/14/20 History trazodone 50 mg tablet 1 tab PO BEDTIME PRN 09/11/20 11/16/20 11/01/20 History metoprolol tartrate 50 mg tablet 1 tab PO BID 11/16/20 11/16/20 11/14/20 History multivitamin 1 tab PO DAILY 11/16/20 11/16/20 11/14/20 History Physical Exam Vital Signs: Vital Signs: Last Vital Signs Temp 97.0 F 11/17/20 11:38 Pulse 85 11/17/20 11:38 Resp 20 11/17/20 11:38 BP 130/82 11/17/20 11:38 Pulse Ox 99 11/17/20 11:38 Body Mass Index 37.1 Const: General: cooperative and no acute distress HENMT: Other: Unremarkable Neck: Neck: Yes normal visual inspection Chest: Chest palpation & inspection: normal inspection of the chest Resp: Auscultation: clear to auscultation bilaterally, no crackles and no wheezes Cardio: Jugular venous distension: no JVD Palpation: normal PMI Heart sounds: S1 normal heart sound present, S2 normal heart sound present, no gallops, no murmurs and no rubs GI: Palpation (GI): Soft to palpation Back/Spine/Pelvis: Other: unremarkable Skin: General skin exam: no rashes or lesions noted Neuro: Cranial nerves: Yes Other cranial nerve findings present Extrem: Other: Chronic changes in both lower extremity. Psych: Mental Status: other Results Labs and Meds Result diagrams: 11/17/20 05:18 11/17/20 05:18 Lab results: Laboratory Results - last 24 hr 11/16/20 11/16/20 11/16/20 02:07 13:01 14:36 WBC RBC Hgb Hct MCV MCH MCHC RDW Plt Count MPV Absolute Nucleated RBC Nucleated RBC % (auto) Sodium Potassium Chloride Carbon Dioxide Anion Gap BUN Creatinine Estim Creat Clear Calc Estimated GFR POC Glucose 298 H Random Glucose Calcium Troponin I High Sens 39.3 H* B-Natriuretic Peptide Procalcitonin 0.02 11/16/20 11/16/20 11/17/20 18:01 19:35 05:18 WBC 7.3 RBC 3.52 L Hgb 10.9 L Hct 34.3 L MCV 97.4 MCH 31.0 MCHC 31.8 RDW 14.4 Plt Count 125 L MPV 10.8 Absolute Nucleated RBC 0.000 Nucleated RBC % (auto) 0.0 Sodium Potassium Chloride Carbon Dioxide Anion Gap BUN Creatinine Estim Creat Clear Calc Estimated GFR POC Glucose 289 H Random Glucose Calcium Troponin I High Sens 80.0 H* D B-Natriuretic Peptide Procalcitonin 11/17/20 11/17/20 11/17/20 05:18 05:18 07:35 WBC RBC Hgb Hct MCV MCH MCHC RDW Plt Count MPV Absolute Nucleated RBC Nucleated RBC % (auto) Sodium 138 Potassium 3.7 Chloride 98 Carbon Dioxide 31 H Anion Gap 13 BUN 11 D Creatinine 0.77 Estim Creat Clear Calc 132.6 Estimated GFR > 60 POC Glucose 264 H Random Glucose 292 H D Calcium 8.6 Troponin I High Sens B-Natriuretic Peptide 307 H Procalcitonin 11/17/20 11:31 WBC RBC Hgb Hct MCV MCH MCHC RDW Plt Count MPV Absolute Nucleated RBC Nucleated RBC % (auto) Sodium Potassium Chloride Carbon Dioxide Anion Gap BUN Creatinine Estim Creat Clear Calc Estimated GFR POC Glucose 263 H Random Glucose Calcium Troponin I High Sens B-Natriuretic Peptide Procalcitonin ECG Interpretation: EKG with atrial fibrillation at 117/Min with nonspecific ST-T changes. Assessment and Plan (1) Atrial fibrillation with RVR: Status: Acute (2) Acute on chronic combined systolic and diastolic congestive heart failure: Status: Acute (3) Alcoholic intoxication: Status: Acute Labs reviewed. Elevated high sensitivity troponins at 39 and 80. Few days ago, it was 27. Cardiac BNP is 307. Again a few days ago it was 67. CT chest report noted. Multifocal airspace disease in the lungs thought to be from possibly resolving pneumonia. Also with findings of cirrhosis. No ascites. Portosystemic shunting/portal hypertension. Reasonable for empiric diuretics. He is currently on IV Lasix. Listed to take metoprolol 50 mg b.i.d. at home but again highly doubt if he is actually taking these. With regard to atrial fibrillation, listed to be only on home aspirin. Not any anticoagulation possibly due to alcohol issues and homelessness. Minimal understanding of cardiac issues and hence treating this is very difficult. Possibly get social work involved. Procedures Date of Service Date of Service: 11/17/20
--- NOTE | 2020-11-17 13:21 | MHC.CM.PN ---
PT [place]IVES ON THE [address]RE[place] MUCH OF THE TIME HOWEVER OCCASIONALLY STAYS WITH HIS BROTHER. PT HAS NO SERVICES IN THE COMMUNITY AND USES ONLY A [facility]E FOR DME. PT REPORTS HIS PCP IS CHICHI MURGUIA. CURRENT DC PLAN IS TBD PENDING CARE TEAM CONSULT. ? USP VS BROTHERS HOME PT WILL NEED ASSISTANCE WITH TRANSPORTATION. SHUTTLE VS TAXI
[2020-11-17 16:35] LABS: Glucose, Whole Blood 226 mg/dL (60-115)
[2020-11-17] MEDS: Azithromycin 500 MG in 0.9 % Sodium Chloride 250 ML 125 MG IV (17:21)
[2020-11-17] MEDS: Enoxaparin Sodium 40 MG/0.4 ML SYRINGE SUBCUT (17:22)
--- NOTE | 2020-11-17 19:26 | MHC.RECOVSUP ---
Recovery Support o Current location: [facility] o Identified substance use concern: <del>-</del> <del>Overdose</del> <del>-</del> <del>Withdrawal</del> <del>-</del> <del>Seeking</del> <del>ATS</del> <del>(detox)</del> <del>-</del> <del>Support</del> <del>?</del> <del>Intervention:</del> <del>o</del> <del>ATS</del> <del>bed</del> <del>search</del> <del>started/completed/in</del> <del>process</del> <del>o</del> <del>MAT</del> <del>started</del> <del>or</del> <del>to</del> <del>be</del> <del>started</del> o Community resources provided o Harm reduction discussion ? Plan: <del>o</del> <del>Referral</del> <del>to</del> <del>CCC</del> <del>o</del> <del>Bed</del> <del>search</del> <del>in</del> <del>progress</del> <del>to</del> <del>o</del> <del>Follow</del> <del>up</del> <del>tomorrow</del> <del>o</del> <del>Patient</del> <del>awaiting</del> <del>crisis</del> <del>evaluation</del> <del>o</del> <del>Patient</del> <del>to</del> <del>follow</del> <del>up</del> <del>with</del> <del>[facility]</del> <del>after</del> <del>discharge</del> ? Additional information:pt is well known to this television writer. P was able to have a conversation with pt about recovery and the benefits of being able to have resources and other services put in place to help him achieve and maintain recovery, however he thinks that looks for him. He shared that he doesn't feel he has a problem only medical issues. He also stated that he usually lives with his brother. I was able to speak with him about different types of services including MAT, outpatient, recovery coaching, [facility] and also a recovery support navigator. I also shared that if he wants to ever speak with a [facility], to just ask the staff to call us.
[2020-11-17] MEDS: Atorvastatin Calcium 40 MG TABLET PO (19:43)
[2020-11-17 21:04] LABS: Glucose, Whole Blood 197 mg/dL (60-115)
[2020-11-18] VITALS (8 sets, daily range): BP systolic 114–136; BP diastolic 71–77; PULSE 84–97; RESP 18–20; TEMP 35.9–37; O2SAT 97–100; BMI 37.3
[2020-11-18] MEDS: 0.9 % Sodium Chloride Flush 3 ML SYRINGE IVFLUSH ×4 (02:09→19:52)
[2020-11-18] MEDS: Acetaminophen 325 MG TABLET 650 MG PO (05:57)
[2020-11-18 07:07] LABS: Glucose, Whole Blood 200 mg/dL (60-115)
[2020-11-18 07:28] LABS: Hematocrit 34.4 % (42-52); Hemoglobin 11.2 g/dl (14.0-18.0); Mean Corpuscular HGB Conc 32.6 g/dl (31.0-36.0); Mean Corpuscular Hemoglobin 32.1 pg (27.0-33.0); Mean Corpuscular Volume 98.6 fL (80-98); Mean Platelet Volume 10.8 fL (9.4-12.4); Platelet Count 115 X10*3/uL (160-400); Red Blood Count 3.49 X10*6/uL (4.60-5.80); Red Cell Distribution Width 14.5 % (11.0-16.0); White Blood Count 6.5 X10*3/uL (4.8-10.8)
[2020-11-18 07:39] LABS: Anion Gap 13 (12-20); Blood Urea Nitrogen 17 mg/dL (9-16); Calcium 8.5 mg/dL (8.4-10.2); Carbon Dioxide 29 mmol/L (22-29); Chloride 98 mmol/L (96-108); Creatinine Clr Calc Pharmacy 138.4; Estimated Glomerular Filt Rate > 60; Glucose Random 231 mg/dL (60-115); Potassium 3.8 mmol/L (3.3-5.1); Sodium 136 mmol/L (135-145)
[2020-11-18] MEDS: Insulin Glargine,Hum.rec.anlog 100 UNIT/ML 10 ML VIAL 8 UNIT SUBCUT (07:54)
[2020-11-18] MEDS: Furosemide 40 MG/4 ML VIAL IVPUSH ×2 (07:54→17:13)
[2020-11-18] MEDS: Gabapentin 400 MG CAPSULE PO ×3 (07:55→19:54)
[2020-11-18] MEDS: Metoprolol Tartrate 50 MG TABLET PO ×2 (07:55→19:51)
[2020-11-18] MEDS: Insulin Lispro 100 UNIT/ML 3 ML VIAL SUBCUT ×4 (07:55→20:04)
[2020-11-18] MEDS: Multivitamin TABLET 1 TAB PO (07:55)
[2020-11-18] MEDS: PHENobarbitaL 15 MG TABLET 45 MG PO ×2 (07:56→19:51)
[2020-11-18] MEDS: Folic Acid 1 MG TABLET PO (07:56)
[2020-11-18] MEDS: Thiamine HCL 100 MG TABLET PO (07:56)
[2020-11-18] MEDS: Aspirin Enteric Coated 81 MG TABLET.DR PO (07:56)
--- NOTE | 2020-11-18 10:22 | P.PNIM_ITS ---
Subjective Subjective Date of Service: 11/18/20 Interval History: Feels better, denies chest pain, shortness of breath improved, has been mostly in bed since admission, no acute issues overnight. Review of Systems General no headache, no dizziness, no fever chills. CVS no chest pain, no palpitation. Respiratory no cough, no sob, at rest no PND,no orthopnea. Gastrointestinal no nausea, no vomiting, no abdominal pain Physical Exam Vital Signs: Vital Signs: Last Vital Signs Temp 96.7 F L 11/18/20 07:52 Pulse 97 11/18/20 07:55 Resp 20 11/18/20 07:52 BP 131/71 11/18/20 07:55 Pulse Ox 99 11/18/20 07:52 Body Mass Index 37.3 General resting comfortably in no acute distress. Neck no JVD. CVS irregular rate rhythm, Respiratory bibasilar crackles,no respiratory distress, no wheeze, no rhonchi. Gastrointestinal abdomen soft, nontender, bowel sounds audible, no guarding , no rigidity. Extremities no edema, discoloration due to chronic venous stasis, varicose veins Neuro nonfocal ,speech clear. Psych appropriate affect Objective Data Current Medications Generic Name Dose Route Start Last Admin Trade Name Freq PRN Reason Stop Dose Admin Acetaminophen 650 mg 11/18/20 05:39 11/18/20 05:57 Acetaminophen 325 Mg Tablet PO 650 mg Q6H PRN Administration Pain, Moderate (Pain Scale 4-6 Aspirin 81 mg 11/17/20 09:00 11/18/20 07:56 Aspirin Enteric Coated 81 Mg Tablet. PO 81 mg DAILY [facility]Y Administration Atorvastatin Calcium 40 mg 11/16/20 21:00 11/17/20 19:43 Atorvastatin Calcium 40 Mg Tablet PO 40 mg BEDTIME [facility] Administration Azithromycin 250 mg 11/18/20 18:00 Azithromycin 250 Mg Tablet PO Q24H FRANKY Enoxaparin Sodium 40 mg 11/16/20 18:00 11/17/20 17:22 Enoxaparin Sodium 40 Mg/0.4 Ml Syringe SUBCUT 40 mg Q24H FR[facility]Y Administration Folic Acid 1 mg 11/17/20 09:00 11/18/20 07:56 Folic Acid 1 Mg Tablet PO 1 mg DAILY [facility]Y Administration Folic Acid 1 mg 11/17/20 09:00 11/17/20 09:10 Folic Acid 1 Mg Tablet PO 1 mg DAILY [facility] Administration Furosemide 40 mg 11/16/20 18:00 11/18/20 07:54 Furosemide 40 Mg/4 Ml Vial IVPUSH 40 mg BID@0800,1800 [facility] Administration Protocol Gabapentin 400 mg 11/16/20 21:00 11/18/20 07:55 Gabapentin 400 Mg Capsule PO 400 mg TID [facility] Administration Azithromycin 500 mg/ Sodium 250 mls @ 125 mls/hr 11/17/20 17:00 11/17/20 20:13 Chloride IV Infused Q24H FRANKY Infusion Insulin Glargine 8 unit 11/18/20 09:00 11/18/20 07:54 Insulin Glargine,Hum.Rec.Anlog 100 Unit/Ml 10 Ml Vial SUBCUT 8 unit DAILY [facility] Administration Insulin Human Lispro 0 unit 11/16/20 16:30 11/18/20 07:55 Insulin Lispro 100 Unit/Ml 3 Ml Vial SUBCUT 2 unit QIDACHS [facility] Administration Protocol Medication 1 each 11/17/20 09:00 No Benzodiazepines MISCELLANE DAILY [facility] Metoprolol Tartrate 50 mg 11/16/20 17:00 11/18/20 07:55 Metoprolol Tartrate 50 Mg Tablet PO 50 mg QID [facility] Administration Protocol Multivitamins/Vitamin C 1 tab 11/17/20 09:00 11/18/20 07:55 Multivitamin Tablet PO 1 tab DAILY [facility] Administration Pharmacy Consult 1 each 11/16/20 14:14 Consult Rx Perform Med Rec MISCELLANE ONCE PRN Consult order Phenobarbital 45 mg 11/17/20 09:00 11/18/20 07:56 Phenobarbital 15 Mg Tablet PO 11/18/20 21:01 45 mg BID [facility] Administration Phenobarbital 15 mg 11/19/20 09:00 Phenobarbital 15 Mg Tablet PO 11/20/20 21:01 BID FR[facility]Y Phenobarbital 15 mg 11/21/20 09:00 Phenobarbital 15 Mg Tablet PO 11/22/20 09:01 DAILY [facility] Sodium Chloride 3 ml 11/16/20 16:00 11/18/20 07:56 0.9 % Sodium Chloride Flush 3 Ml Syringe IVFLUSH 3 ml QSHIFT [facility] Administration Thiamine HCl 100 mg 11/17/20 09:00 11/18/20 07:56 Thiamine Hcl 100 Mg Tablet PO 100 mg DAILY [facility] Administration Thiamine HCl 100 mg 11/17/20 09:00 11/17/20 09:11 Thiamine Hcl 100 Mg Tablet PO 100 mg DAILY [facility] Administration Trazodone HCl 50 mg 11/16/20 19:17 11/16/20 20:23 Trazodone Hcl 50 Mg Tablet PO 50 mg BEDTIME PRN Administration Insomnia Labs CBC & Chem 7: 11/18/20 06:13 11/18/20 06:13 Labs: Laboratory Results - last 24 hr 11/17/20 11/17/20 11/17/20 05:18 11:31 16:31 MCV MCH MCHC RDW Plt Count MPV Absolute Nucleated RBC Nucleated RBC % (auto) Anion Gap Cancelled Estim Creat Clear Calc Cancelled Estimated GFR Cancelled POC Glucose 263 H 226 H Random Glucose Cancelled Calcium Cancelled 11/17/20 11/18/20 11/18/20 20:54 06:13 06:13 MCV 98.6 H MCH 32.1 MCHC 32.6 RDW 14.5 Plt Count 115 L MPV 10.8 Absolute Nucleated RBC 0.000 Nucleated RBC % (auto) 0.0 Anion Gap 13 Estim Creat Clear Calc 138.4 Estimated GFR > 60 POC Glucose 197 H Random Glucose 231 H D Calcium 8.5 D 11/18/20 06:57 MCV MCH MCHC RDW Plt Count MPV Absolute Nucleated RBC Nucleated RBC % (auto) Anion Gap Estim Creat Clear Calc Estimated GFR POC Glucose 200 H Random Glucose Calcium Microbiology Microbiology Results: Microbiology 11/16/20 02:07 Blood Culture - Preliminary Blood - Venous No growth after 48 hours. 11/16/20 02:07 Blood Culture - Preliminary Blood - Venous No growth after 48 hours. Assessment and Plan (1) Atrial fibrillation with RVR: Status: Acute (2) CHF exacerbation: Status: Acute Assessment and Plan: 60-year-old male with a past medical history of systolic heart failure, atrial fibrillation with multiple episodes of rapid ventricular response, alcohol abuse and dependence with prior withdrawal symptoms and uncontrolled diabetes who presents to the hospital with complaints of alcohol intoxication.? Unfortunately he has gone into rapid AFib. 1. Alcohol withdrawal and dependence No withdrawal symptoms, continue phenobarb protocol , await care team input 2.acute on chronic systolic chf/severe cardiomyopathy: Echo 08/29/20 showed EF 10-15% with global hypokinesis Shortness of breath improved but persistent bilateral crackles will continue Continue IV Lasix times 24 hours, patient not taking home medications since Homeless Is 2 L negative since admission, will follow BMP and BNP check Daily weights,I&O 3 Elevated Troponin History of coronary artery disease status post cardiac catheterization in 2016 with PCI to distal RCA Elevated troponin likely due demand from rapid atrial fibrillation, CHF,no acute ischemia on ekg 4. Possible bronchitis: Has cough with phlegm, continue azithromycin for 5 days 5. AFib with RVr Heart rate improved, remains in AFib, not on anticoagulation due to noncompliance and chronic alcoholism with high fall risk, Will continue metoprolol change dose to metoprolol 50 mg b.i.d. 6. Uncontrolled DM due to non-compliance with meds, at home takes metformin twice daily, continue Lantus and insulin sliding scale 7. urinary bladder distension: Continue Natarajan for strict I's and Os will DC Natarajan at a.m. and give voiding trial Quality Stroke Does the patient have a stroke diagnosis?: No VTE Prior VTE?: No VTE Risk Level:: Medical - moderate - high VTE Device Contraindication: N/A - Device Ordered VTE Drug Contraindication: N/A - Med Ordered
[2020-11-18 11:09] LABS: Glucose, Whole Blood 263 mg/dL (60-115)
[2020-11-18 15:52] LABS: Glucose, Whole Blood 236 mg/dL (60-115)
[2020-11-18] MEDS: Enoxaparin Sodium 40 MG/0.4 ML SYRINGE SUBCUT (17:13)
[2020-11-18] MEDS: Azithromycin 250 MG TABLET PO (17:13)
[2020-11-18] MEDS: Atorvastatin Calcium 40 MG TABLET PO (19:51)
[2020-11-18 20:07] LABS: Glucose, Whole Blood 272 mg/dL (60-115)
[2020-11-19] VITALS (8 sets, daily range): BP systolic 109–137; BP diastolic 70–84; PULSE 70–110; RESP 18–20; TEMP 35.5–37.2; O2SAT 96–99; BMI 37.2
[2020-11-19 06:05] LABS: Anion Gap 15 (12-20); Blood Urea Nitrogen 17 mg/dL (9-16); Calcium 8.6 mg/dL (8.4-10.2); Carbon Dioxide 27 mmol/L (22-29); Chloride 98 mmol/L (96-108); Creatinine Clr Calc Pharmacy 155.1; Estimated Glomerular Filt Rate > 60; Glucose Random 166 mg/dL (60-115); Potassium 3.7 mmol/L (3.3-5.1); Sodium 136 mmol/L (135-145)
[2020-11-19 07:10] LABS: Glucose, Whole Blood 175 mg/dL (60-115)
[2020-11-19] MEDS: Gabapentin 400 MG CAPSULE PO ×3 (08:41→20:26)
[2020-11-19] MEDS: Multivitamin TABLET 1 TAB PO (08:41)
[2020-11-19] MEDS: Folic Acid 1 MG TABLET PO (08:41)
[2020-11-19] MEDS: Aspirin Enteric Coated 81 MG TABLET.DR PO (08:41)
[2020-11-19] MEDS: PHENobarbitaL 15 MG TABLET PO ×2 (08:41→20:26)
[2020-11-19] MEDS: 0.9 % Sodium Chloride Flush 3 ML SYRINGE IVFLUSH ×3 (08:42→20:26)
[2020-11-19] MEDS: Insulin Lispro 100 UNIT/ML 3 ML VIAL SUBCUT ×4 (08:42→20:26)
[2020-11-19] MEDS: Furosemide 40 MG/4 ML VIAL IVPUSH (08:42)
[2020-11-19] MEDS: Thiamine HCL 100 MG TABLET PO (08:42)
[2020-11-19] MEDS: Metoprolol Tartrate 50 MG TABLET PO ×2 (08:43→20:25)
[2020-11-19] MEDS: Insulin Glargine,Hum.rec.anlog 100 UNIT/ML 10 ML VIAL 8 UNIT SUBCUT (08:52)
[2020-11-19 09:57] LABS: B Type Natriuretic Peptide 103 pg/mL (<100)
--- NOTE | 2020-11-19 10:45 | PM.PNCARD ---
Subjective Subjective Date of Service: 11/19/20 Interval history: He states that he is feeling better. No complaints. Review of Systems Review of Systems Yes all other systems are reviewed and are negative Cardiovascular: Reports as per HPI, Reports no additional cardiovascular complaints, Denies acrocyanosis, Denies cool extremities, Denies painful fingertips, Reports chest pain, Denies chest pain at rest, Denies diaphoresis, Denies syncope, Denies irregular heart rhythm, Denies claudication, Denies leg edema, Denies lightheadedness, Denies palpitations and Reports dyspnea Respiratory: Reports dyspnea Denies syncope Endocrine: Denies palpitations Physical Exam Vital Signs: Last Vital Signs Temp 96 F L 11/19/20 07:03 Pulse 110 H 11/19/20 08:43 Resp 20 11/19/20 07:03 BP 127/74 11/19/20 08:43 Pulse Ox 96 11/19/20 07:03 Body Mass Index 37.2 Const General: cooperative and no acute distress HENAL Other: Unremarkable Neck Neck: Yes normal visual inspection Chest Chest palpation & inspection: normal inspection of the chest Resp Auscultation: clear to auscultation bilaterally, no crackles and no wheezes Cardio Jugular venous distension: no JVD Palpation: normal PMI Heart sounds: S1 normal heart sound present, S2 normal heart sound present, no gallops, no murmurs and no rubs GI Palpation (GI): Soft to palpation Back/Spine/Pelvis Other: unremarkable Skin General skin exam: no rashes or lesions noted Neuro Cranial nerves: Yes Other cranial nerve findings present Extrem Other: Chronic changes in both lower extremity. Psych Mental Status: other Results Labs and Meds Result diagrams: 11/18/20 06:13 11/19/20 04:27 Lab results: Laboratory Results - last 24 hr 11/18/20 11/18/20 11/18/20 11:02 15:48 19:50 Sodium Potassium Chloride Carbon Dioxide Anion Gap BUN Creatinine Estim Creat Clear Calc Estimated GFR POC Glucose 263 H 236 H 272 H Random Glucose Calcium B-Natriuretic Peptide 11/19/20 11/19/20 11/19/20 04:27 06:05 07:03 Sodium 136 Potassium 3.7 Chloride 98 Carbon Dioxide 27 Anion Gap 15 BUN 17 H Creatinine 0.66 Estim Creat Clear Calc 155.1 Estimated GFR > 60 POC Glucose 175 H Random Glucose 166 H Calcium 8.6 B-Natriuretic Peptide 103 H Progress Note: A&P Assessment and plan (1) Atrial fibrillation with RVR: Status: Acute (2) Acute on chronic combined systolic and diastolic congestive heart failure: Status: Acute (3) Alcoholic intoxication: Status: Acute Assessment and Plan: Overall, he seems much better than arrival. May change to oral diuretics. On telemetry, atrial fibrillation rate seems controlled at around 75/Min. Not on any anticoagulation due to alcohol abuse, falls, homelessness, poor comprehension among others. Otherwise, cardiac care as well as overall care is suboptimal mainly due to social issues and lack of comprehension/insight. Fall Risk Details Current Medications: Current Medications Generic Name Dose Route Start Last Admin Trade Name Freq PRN Reason Stop Dose Admin Acetaminophen 650 mg 11/18/20 05:39 11/18/20 05:57 Acetaminophen 325 Mg Tablet PO 650 mg Q6H PRN Administration Pain, Moderate (Pain Scale 4-6 Aspirin 81 mg 11/17/20 09:00 11/19/20 08:41 Aspirin Enteric Coated 81 Mg Tablet.Dr PO 81 mg DAILY FRANKY Administration Atorvastatin Calcium 40 mg 11/16/20 21:00 11/18/20 19:51 Atorvastatin Calcium 40 Mg Tablet PO 40 mg BEDTIME FR[facility]Y Administration Azithromycin 250 mg 11/18/20 18:00 11/18/20 17:13 Azithromycin 250 Mg Tablet PO 250 mg Q24H [facility]Y Administration Enoxaparin Sodium 40 mg 11/16/20 18:00 11/18/20 17:13 Enoxaparin Sodium 40 Mg/0.4 Ml Syringe SUBCUT 40 mg Q24H [facility]Y Administration Folic Acid 1 mg 11/17/20 09:00 11/19/20 08:41 Folic Acid 1 Mg Tablet PO 1 mg DAILY [facility]Y Administration Furosemide 40 mg 11/16/20 18:00 11/19/20 08:42 Furosemide 40 Mg/4 Ml Vial IVPUSH 40 mg BID@0800,1800 [facility] Administration Protocol Gabapentin 400 mg 11/16/20 21:00 11/19/20 08:41 Gabapentin 400 Mg Capsule PO 400 mg TID [facility] Administration Insulin Glargine 8 unit 11/18/20 09:00 11/19/20 08:52 Insulin Glargine,Hum.Rec.Anlog 100 Unit/Ml 10 Ml Vial SUBCUT 8 unit DAILY [facility] Administration Insulin Human Lispro 0 unit 11/16/20 16:30 11/19/20 08:42 Insulin Lispro 100 Unit/Ml 3 Ml Vial SUBCUT 2 unit QIDACHS [facility] Administration Protocol Medication 1 each 11/17/20 09:00 No Benzodiazepines MISCELLANE DAILY [facility] Metoprolol Tartrate 50 mg 11/18/20 21:00 11/19/20 08:43 Metoprolol Tartrate 50 Mg Tablet PO 50 mg BID [facility] Administration Protocol Multivitamins/Vitamin C 1 tab 11/17/20 09:00 11/19/20 08:41 Multivitamin Tablet PO 1 tab DAILY [facility] Administration Pharmacy Consult 1 each 11/16/20 14:14 Consult Rx Perform Med Rec MISCELLANE ONCE PRN Consult order Phenobarbital 15 mg 11/19/20 09:00 11/19/20 08:41 Phenobarbital 15 Mg Tablet PO 11/20/20 21:01 15 mg BID [facility] Administration Phenobarbital 15 mg 11/21/20 09:00 Phenobarbital 15 Mg Tablet PO 11/22/20 09:01 DAILY [facility] Sodium Chloride 3 ml 11/16/20 16:00 11/19/20 08:42 0.9 % Sodium Chloride Flush 3 Ml Syringe IVFLUSH 3 ml QSHIFT [facility] Administration Thiamine HCl 100 mg 11/17/20 09:00 11/19/20 08:42 Thiamine Hcl 100 Mg Tablet PO 100 mg DAILY [facility] Administration Trazodone HCl 50 mg 11/16/20 19:17 11/16/20 20:23 Trazodone Hcl 50 Mg Tablet PO 50 mg BEDTIME PRN Administration Insomnia Time Spent With Patient Time: Total time spent is greater than 50% in coordination of care (as documented) at patient's floor/unit and/or counseling patient: Time with patient: less than 15 minutes Progress Note: Quality Stroke Does the patient have a stroke diagnosis?: No Procedures Date of Service Date of Service: 11/19/20
[2020-11-19 10:58] LABS: Glucose, Whole Blood 223 mg/dL (60-115)
--- NOTE | 2020-11-19 14:17 | P.PNIM_ITS ---
Subjective Subjective Date of Service: 11/19/20 Interval History: Feeling better this a.m. offers no acute complaints, oxygenation stable on room air. Review of Systems General no headache, no dizziness, no fever chills.? CVS no chest pain, no palpitation.? Respiratory no cough, no sob, at rest no PND,no orthopnea.? Gastrointestinal no nausea, no vomiting, no abdominal pain Physical Exam Vital Signs: Vital Signs: Last Vital Signs Temp 98 F 11/19/20 10:55 Pulse 83 11/19/20 10:55 Resp 20 11/19/20 10:55 BP 113/84 11/19/20 10:55 Pulse Ox 96 11/19/20 10:55 Body Mass Index 37.2 General? resting comfortably in no acute distress.? Neck? no JVD. CVS? irregular rate rhythm, Respiratory clear lungs,no respiratory distress, no wheeze, no rhonchi. Gastrointestinal abdomen soft, nontender, bowel sounds audible, no guarding , no rigidity. Extremities no edema, discoloration due to chronic venous stasis, varicose veins Neuro nonfocal ,speech clear. Psych appropriate affect Objective Data Current Medications Generic Name Dose Route Start Last Admin Trade Name Freq PRN Reason Stop Dose Admin Acetaminophen 650 mg 11/18/20 05:39 11/18/20 05:57 Acetaminophen 325 Mg Tablet PO 650 mg Q6H PRN Administration Pain, Moderate (Pain Scale 4-6 Aspirin 81 mg 11/17/20 09:00 11/19/20 08:41 Aspirin Enteric Coated 81 Mg Tablet.Dr PO 81 mg DAILY [facility] Administration Atorvastatin Calcium 40 mg 11/16/20 21:00 11/18/20 19:51 Atorvastatin Calcium 40 Mg Tablet PO 40 mg BEDTIME [facility] Administration Azithromycin 250 mg 11/18/20 18:00 11/18/20 17:13 Azithromycin 250 Mg Tablet PO 250 mg Q24H [facility] Administration Enoxaparin Sodium 40 mg 11/16/20 18:00 11/18/20 17:13 Enoxaparin Sodium 40 Mg/0.4 Ml Syringe SUBCUT 40 mg Q24H [facility]Y Administration Folic Acid 1 mg 11/17/20 09:00 11/19/20 08:41 Folic Acid 1 Mg Tablet PO 1 mg DAILY [facility] Administration Furosemide 40 mg 11/16/20 18:00 11/19/20 08:42 Furosemide 40 Mg/4 Ml Vial IVPUSH 40 mg BID@0800,1800 [facility] Administration Protocol Gabapentin 400 mg 11/16/20 21:00 11/19/20 13:46 Gabapentin 400 Mg Capsule PO 400 mg TID [facility] Administration Insulin Glargine 8 unit 11/18/20 09:00 11/19/20 08:52 Insulin Glargine,Hum.Rec.Anlog 100 Unit/Ml 10 Ml Vial SUBCUT 8 unit DAILY [facility] Administration Insulin Human Lispro 0 unit 11/16/20 16:30 11/19/20 12:18 Insulin Lispro 100 Unit/Ml 3 Ml Vial SUBCUT 6 unit QIDACHS [facility] Administration Protocol Medication 1 each 11/17/20 09:00 No Benzodiazepines MISCELLANE DAILY [facility] Metoprolol Tartrate 50 mg 11/18/20 21:00 11/19/20 08:43 Metoprolol Tartrate 50 Mg Tablet PO 50 mg BID [facility] Administration Protocol Multivitamins/Vitamin C 1 tab 11/17/20 09:00 11/19/20 08:41 Multivitamin Tablet PO 1 tab DAILY [facility] Administration Pharmacy Consult 1 each 11/16/20 14:14 Consult Rx Perform Med Rec MISCELLANE ONCE PRN Consult order Phenobarbital 15 mg 11/19/20 09:00 11/19/20 08:41 Phenobarbital 15 Mg Tablet PO 11/20/20 21:01 15 mg BID [facility] Administration Phenobarbital 15 mg 11/21/20 09:00 Phenobarbital 15 Mg Tablet PO 11/22/20 09:01 DAILY [facility] Sodium Chloride 3 ml 11/16/20 16:00 11/19/20 08:42 0.9 % Sodium Chloride Flush 3 Ml Syringe IVFLUSH 3 ml QSHIFT [facility] Administration Thiamine HCl 100 mg 11/17/20 09:00 11/19/20 08:42 Thiamine Hcl 100 Mg Tablet PO 100 mg DAILY [facility] Administration Trazodone HCl 50 mg 11/16/20 19:17 11/16/20 20:23 Trazodone Hcl 50 Mg Tablet PO 50 mg BEDTIME PRN Administration Insomnia Labs CBC & Chem 7: 11/18/20 06:13 11/19/20 04:27 Labs: Laboratory Results - last 24 hr 11/18/20 11/18/20 11/19/20 15:48 19:50 04:27 Anion Gap 15 Estim Creat Clear Calc 155.1 Estimated GFR > 60 POC Glucose 236 H 272 H Random Glucose 166 H Calcium 8.6 B-Natriuretic Peptide 11/19/20 11/19/20 11/19/20 06:05 07:03 10:54 Anion Gap Estim Creat Clear Calc Estimated GFR POC Glucose 175 H 223 H Random Glucose Calcium B-Natriuretic Peptide 103 H Assessment and Plan (1) Alcoholic intoxication: Status: Acute (2) Atrial fibrillation with RVR: Status: Acute (3) Acute on chronic systolic heart failure: Status: Acute Assessment and Plan: 60-year-old male with a past medical history of systolic heart failure, atrial fibrillation with multiple episodes of rapid ventricular response, alcohol abuse and dependence with prior withdrawal symptoms and uncontrolled diabetes who presents to the hospital with complaints of alcohol intoxication.? Unfortunately he has gone into rapid AFib. 1. Alcohol withdrawal and dependence No withdrawal symptoms, continue phenobarb protocol , await care team input? 2.acute on chronic systolic chf/severe cardiomyopathy, acute hypoxic respiratory failure Echo 08/29/20 showed? EF 10-15% with global hypokinesis Shortness of breath improved , no respiratory distress oxygenation normalized, will DC IV Lasix and switch to home dose Lasix 40 mg b.i.d. is 3 L negative BNP improved to 103 electrolytes and renal function is stable will obtain PT eval for safe discharge patient not taking home medications since Homeless 3 Elevated Troponin History of coronary artery disease status post cardiac catheterization in 2016 with PCI to distal RCA Elevated troponin likely due demand from rapid atrial fibrillation, CHF,no acute ischemia on ekg 4. Possible bronchitis: Has cough with phlegm, continue azithromycin for 5 days 5. AFib with RVr Heart rate improved, remains in AFib, not on anticoagulation due to noncompliance and chronic alcoholism with high fall risk, Will continue metoprolol 50 mg b.i.d. 6. Uncontrolled DM due to non-compliance with meds, at home takes metformin twice daily, continue Lantus and insulin sliding scale and resume metformin 7. urinary bladder distension: DC Natarajan catheter and give voiding trial Quality Stroke Does the patient have a stroke diagnosis?: No VTE Prior VTE?: No VTE Risk Level:: Medical - moderate - high VTE Device Contraindication: N/A - Device Ordered VTE Drug Contraindication: N/A - Med Ordered
[2020-11-19 15:36] LABS: Glucose, Whole Blood 215 mg/dL (60-115)
[2020-11-19] MEDS: Enoxaparin Sodium 40 MG/0.4 ML SYRINGE SUBCUT (18:39)
[2020-11-19] MEDS: Azithromycin 250 MG TABLET PO (18:39)
[2020-11-19] MEDS: Furosemide 40 MG TABLET PO (18:39)
[2020-11-19 19:52] LABS: Glucose, Whole Blood 185 mg/dL (60-115)
[2020-11-19] MEDS: Atorvastatin Calcium 40 MG TABLET PO (20:26)
[2020-11-20 03:06] VITALS: BP 126/73; PULSE 83; RESP 18; TEMP 36.3; O2SAT 94
[2020-11-20 06:00] VITALS: BMI 36.5
[2020-11-20 07:15] VITALS: BP 150/71; PULSE 88; RESP 20; TEMP 36.1; O2SAT 96
[2020-11-20 07:26] LABS: Glucose, Whole Blood 192 mg/dL (60-115)
[2020-11-20] MEDS: Insulin Glargine,Hum.rec.anlog 100 UNIT/ML 10 ML VIAL 8 UNIT SUBCUT (07:59)
[2020-11-20 08:00] VITALS: BP 150/71; PULSE 88
[2020-11-20] MEDS: PHENobarbitaL 15 MG TABLET PO (08:00)
[2020-11-20] MEDS: Metoprolol Tartrate 50 MG TABLET PO (08:00)
[2020-11-20] MEDS: 0.9 % Sodium Chloride Flush 3 ML SYRINGE IVFLUSH ×2 (08:00→16:58)
[2020-11-20] MEDS: Gabapentin 400 MG CAPSULE PO ×2 (08:00→16:57)
[2020-11-20] MEDS: Thiamine HCL 100 MG TABLET PO (08:00)
[2020-11-20] MEDS: Furosemide 40 MG TABLET PO ×2 (08:00→16:57)
[2020-11-20] MEDS: Aspirin Enteric Coated 81 MG TABLET.DR PO (08:00)
[2020-11-20] MEDS: Insulin Lispro 100 UNIT/ML 3 ML VIAL SUBCUT ×2 (08:00→16:58)
[2020-11-20] MEDS: Folic Acid 1 MG TABLET PO (08:00)
[2020-11-20] MEDS: Multivitamin TABLET 1 TAB PO (08:00)
[2020-11-20 09:14] VITALS: BP 150/71; PULSE 88
[2020-11-20 11:13] VITALS: BP 122/75; PULSE 82; RESP 18; TEMP 36; O2SAT 97
[2020-11-20 11:21] LABS: Glucose, Whole Blood 235 mg/dL (60-115)
--- NOTE | 2020-11-20 12:23 | PM.DS ---
DS: Providers Provider Date of Service: 11/20/20 Date of admission: 11/16/20 14:24 Primary care physician: Unknown Physician Consults: 11/16/20 14:41 Consult to Care Team Routine Comment: Reason for consultation: alcochol Has provider been notified: No 11/16/20 14:53 Consult to Cardiology Routine Consulting Provider: Jin Quintero Reason for consultation: chf excerebation Has provider been notified: No 11/17/20 18:51 Consult to Infectious Diseases Routine Consulting Provider: Nayeli Menjivar Reason for consultation: pneumonia Has provider been notified: No DS: Diagnosis Discharge Diagnosis (1) Alcoholic intoxication: Status: Acute (2) Atrial fibrillation with RVR: Status: Acute (3) Acute on chronic systolic heart failure: Status: Acute DS: Medications Discharge Medications Home Medications: Home Medications Medication Instructions Recorded Confirmed atorvastatin 40 mg tablet 1 tab PO BEDTIME 09/11/20 11/16/20 gabapentin 400 mg capsule 1 cap PO TID 09/11/20 11/16/20 metformin 1,000 mg tablet 1 tab PO BID 09/11/20 11/16/20 trazodone 50 mg tablet 1 tab PO BEDTIME PRN 09/11/20 11/16/20 metoprolol tartrate 50 mg tablet 1 tab PO BID 11/16/20 11/16/20 multivitamin 1 tab PO DAILY 11/16/20 11/16/20 Previous Rx's Medication Instructions Recorded furosemide 40 mg tablet (Lasix) 40 mg PO BID 30 Days #60 tab 09/14/20 aspirin 81 mg tablet,delayed 81 mg PO DAILY #30 tab 11/04/20 release folic acid 1 mg tablet 1 mg PO DAILY #30 tab 11/04/20 thiamine mononitrate (vit B1) 100 100 mg PO DAILY #30 tab 11/04/20 mg tablet insulin glargine 100 unit/mL 8 unit SUBCUT DAILY #10 ml 11/20/20 subcutaneous solution (Lantus U-100 Insulin) DS: Summary Hospital Course Hospital Course: History and physical Date of Service: 11/16/20 Chief Complaint: Shortness of breath and cough 60-year-old male with multiple comorbidities including diabetes, AFib, CHF-? Patient was recently here for AFib with RVR, alcohol abuse:? Came to the hospital because shortness of breath and some yellowish sputum. Patient says that he is having these symptoms from few days does not know how many. He is probably noncompliant patient with alcohol use drinks 10-12 beers a day as well as 2 nips of rum/day.? He also takes lot of salt with food . He says that he was having cough for few days and also having some much short of breath and as well that as some pleuritic chest tightness with cough, reproducible, right side of the chest. He reports some chills at home otherwise no fever. Unsure whether he gained any weight. Legs are swelling as per patient . Denies any other systemic complaints including nausea, vomiting, diarrhea, fever, weakness, numbness. ?? Also unclear his medication compliance. Past medical history A-fib Alcohol use disorder, severe, dependence Atrial fibrillation, rapid CAD (coronary artery disease) Cardiomyopathy CHF (congestive heart failure) Cirrhosis Depression Diabetes ETOH abuse HTN (hypertension) Hospital course 60-year-old male with a past medical history of systolic heart failure, atrial fibrillation with multiple episodes of rapid ventricular response, alcohol abuse and dependence with prior withdrawal symptoms and uncontrolled diabetes who presents to the hospital with complaints of alcohol intoxication,and noted to be in atrial fibrillation with RVR and congestive heart failure, patient admitted to intermediate care unit, treated with intravenous Lasix, Cardizem, and phenobarb protocol, patient responded well to treatment, heart rate improved, congestive heart failure resolved, all symptoms of withdrawal resolved patient seen by Physical therapy and they recommend no services, patient also seen by care team and has been given information for alcohol cessation program, patient has prescriptions waiting in the pharmacy from before, explained to patient the importance of taking all medications with history of coronary artery disease and cardiomyopathy he showed understanding about his disease and is willing to take all medication, patient is homeless will go to his brother's house upon discharge, patient finished 5 days of azithromycin for possible bronchitis, his blood sugars were significantly elevated on admission but improved with use of Lantus and metformin he is recommended to follow diabetic diet. CT abdomen showed distended bladder for which she had a Natarajan catheter placed that was subsequently replaced and patient is voiding with no difficulty. Time Spent with Patient Time attestation: Total time spent providing and/or coordinating discharge services: Discharge coordination time: Greater than 30 minutes Quality: Stroke Does the patient have a stroke diagnosis?: No Physical Exam Vital Signs: Vital Signs: Last Vital Signs Temp 96.8 F 11/20/20 11:13 Pulse 82 11/20/20 11:13 Resp 18 11/20/20 11:13 BP 122/75 11/20/20 11:13 Pulse Ox 97 11/20/20 11:13 Body Mass Index 36.5 General? resting comfortably in no acute distress.? Neck? no JVD. CVS? irregular rate rhythm, Respiratory clear lungs,no respiratory distress, no wheeze, no rhonchi. Gastrointestinal abdomen soft, nontender, bowel sounds audible, no guarding , no rigidity. Extremities no edema, discoloration due to chronic venous stasis, varicose veins Neuro nonfocal ,speech clear. Psych appropriate affect DS: Data Data Completed and Pending Completed studies during hospitalization [Text1]: Procedures Detoxification Services for Substance Abuse Treatment (11/09/20) Labs on day of discharge: Laboratory Results - last 24 hr 11/19/20 11/19/20 11/20/20 15:29 19:45 07:15 POC Glucose 215 H 185 H 192 H 11/20/20 11:13 POC Glucose 235 H Preliminary micro results at discharge 11/16/20 02:07 Blood Culture - Preliminary Blood - Venous No growth after 48 hours. 11/16/20 02:07 Blood Culture - Preliminary Blood - Venous No growth after 48 hours. Discharge Plan Discharge Patient Disposition: Home, Self-Care Discharge Diagnosis: Atrial fibrillation with rapid ventricular rate Acute on chronic systolic congestive heart failure Alcohol dependence and withdrawal Elevated troponin Uncontrolled diabetes mellitus Urinary bladder distension Referrals: Physician,Unknown [Primary Care Provider] - 1 Week Discharge Medications: New Lantus U-100 Insulin 100 unit/mL Solution 8 unit subcut DAILY Qty: 10 RF: 0 Continued multivitamin Tablet 1 tab PO DAILY RF: 0 metoprolol tartrate 50 mg tablet 1 tab PO BID RF: 0 atorvastatin 40 mg tablet 1 tab PO BEDTIME RF: 0 trazodone 50 mg tablet 1 tab PO BEDTIME PRN (Reason: Insomnia) RF: 0 gabapentin 400 mg capsule 1 cap PO TID RF: 0 metformin 1,000 mg tablet 1 tab PO BID RF: 0 furosemide [Lasix] 40 mg tablet 40 mg PO BID 30 Days Qty: 60 RF: 0 aspirin 81 mg Tablet,Delayed Release (Dr/Ec) 81 mg PO DAILY Qty: 30 RF: 0 folic acid 1 mg Tablet 1 mg PO DAILY Qty: 30 RF: 0 thiamine mononitrate (vit B1) 100 mg Tablet 100 mg PO DAILY Qty: 30 RF: 0 Discharge Orders: Discharge Order (Routine); Ordered 11/20/20 Ordered By: Isis Meza Diet: diabetic diet Activity on Discharge: As tolerated Stand Alone Forms: Patient Portal Discharge page Care Plan Goals: abstain from alcohol, take all medications as prescribed Health Concerns: Chronic atrial fibrillation, cardiomyopathy, diabetes mellitus, coronary artery disease strongly recommend to abstain from alcohol, please flower buncher or picker all your prescription from your pharmacy, call your primary care physician if any issues with by mouth medication, resume all medications as ordered. Plan of Treatment: Outpatient follow-up with primary care physician in 1-2 weeks outpatient follow-up with Cardiology Dr. Quintero in 1-2 weeks Assessment: As above
--- NOTE | 2020-11-20 13:14 | MHC.CM.PN ---
pt dcd no skilled services ordered by
[2020-11-20 15:13] VITALS: BP 128/76; PULSE 88; RESP 19; TEMP 35.8; O2SAT 98
[2020-11-20 16:33] LABS: Glucose, Whole Blood 242 mg/dL (60-115)
[2020-11-20] MEDS: Enoxaparin Sodium 40 MG/0.4 ML SYRINGE SUBCUT (16:57)
[2020-11-20] MEDS: Azithromycin 250 MG TABLET PO (16:57)
[2020-11-21 23:22] LABS: Strep Pneumo Ag urine Not Detected (Not Detected)
[2020-11-23 04:47] LABS: Legionella Ag Urine Not Detected (Not Detected)
== END 2020-11-20 18:20 | disposition home or self-care (01) | DRG 308 ==
LOC: HO.ED 06:19 → HO.IMC 16:36
PROVIDERS: Admitting Provider Internal Medicine; Emergency Provider Student in an Organized Health Care Education/Training Program; Visit Provider Hospitalist
DX: I48.91 Unspecified atrial fibrillation (principal); I50.23 Acute on chronic systolic (congestive) heart failure; E87.2 Acidosis; F10.239 Alcohol dependence with withdrawal, unspecified; I42.9 Cardiomyopathy, unspecified; F10.229 Alcohol dependence with intoxication, unspecified; J40 Bronchitis, not specified as acute or chronic; N32.89 Other specified disorders of bladder; Z20.822 Contact with and (suspected) exposure to COVID-19; E11.65 Type 2 diabetes mellitus with hyperglycemia; Z88.0 Allergy status to penicillin; Z79.82 Long term (current) use of aspirin; Z79.4 Long term (current) use of insulin; Z79.899 Other long term (current) drug therapy
CPT/HCPCS: 36415; 71260; 74177; 80048; 80053; 81001; 82009; 82077; 82947; 83605; 83735; 83880; 84145; 84484; 85025; 85027; 87040; 87449; 87635; 87899; 93005; 97161; 99285; J0456; J1650; J1940; J2560; Q9967

== ENCOUNTER 2020-11-23 22:39 | Emergency (ER) | payer MEDICARE, MEDICAID, SELFPAY ==
[2020-11-23 22:46] VITALS: BP 147/99; PULSE 125; RESP 16; TEMP 36.9; O2SAT 94; BMI 37.6
--- NOTE | 2020-11-23 23:33 | ECG_ITS ---
Test Reason : ETOH Blood Pressure : / mmHG Vent. Rate : 120 BPM Atrial Rate : 057 BPM P-R Int : 000 ms QRS Dur : 102 ms QT Int : 364 ms P-R-T Axes : 000 -74 088 degrees QTc Int : 514 ms Atrial fibrillation with rapid ventricular response Left axis deviation Inferior infarct (cited on or before 02-JUL-2016) Possible Anterior infarct (cited on or before 02-JUL-2016) Abnormal ECG When compared with ECG of 16-NOV-2020 02:16, No significant change was found Referred By: Michael Yen Electronically Signed By:David Ernandez
--- NOTE | 2020-11-23 23:46 | ED_ITS ---
HPI - Alcohol General Chief Complaint: ETOH/Substance Use Stated Complaint: etoh fall Time Seen by Provider: 11/23/20 23:31 Source: patient, EMS and sterile tech Mode of arrival: EMS Limitations: no limitations History of Present Illness HPI narrative: 60-year-old male with multiple comorbidity DM/AFib/CHF, patient i s known to have history of [place] is, patient also been admitted in the past for rapid AFib, presented today for evaluation of shortness of breath for the past 2 days also coughing yellow sputum. Patient was discharged from the hospital 3 days ago for possible, patient's symptoms was attributed to congestive heart failure and rapid AFib. Patient have same presentation of dyspnea, cough with clear sputum, patient admitted to drinking 2 shots of whiskey before coming to the ED. Related Data Home Medications Medication Instructions Recorded Confirmed atorvastatin 40 mg tablet 1 tab PO BEDTIME 09/11/20 11/16/20 gabapentin 400 mg capsule 1 cap PO TID 09/11/20 11/16/20 metformin 1,000 mg tablet 1 tab PO BID 09/11/20 11/16/20 trazodone 50 mg tablet 1 tab PO BEDTIME PRN 09/11/20 11/16/20 metoprolol tartrate 50 mg tablet 1 tab PO BID 11/16/20 11/16/20 multivitamin 1 tab PO DAILY 11/16/20 11/16/20 Previous Rx's Medication Instructions Recorded furosemide 40 mg tablet (Lasix) 40 mg PO BID 30 Days #60 tab 09/14/20 aspirin 81 mg tablet,delayed 81 mg PO DAILY #30 tab 11/04/20 release folic acid 1 mg tablet 1 mg PO DAILY #30 tab 11/04/20 thiamine mononitrate (vit B1) 100 100 mg PO DAILY #30 tab 11/04/20 mg tablet insulin glargine 100 unit/mL 8 unit SUBCUT DAILY #10 ml 11/20/20 subcutaneous solution (Lantus U-100 Insulin) Allergies Allergy/AdvReac Type Severity Reaction Status Date / Time Penicillins [PCN] Allergy Unknown UNKNOWN Verified 09/03/20 16:05 Review of Systems Review of Systems: All other systems are reviewed and are negative Constitutional: Reports as per HPI and Reports no additional constitutional complaints Eyes: Reports as per HPI and Reports no additional eye complaints Reports system reviewed and no additional complaints, except as documented Cardiovascular: Reports as per HPI and Reports no additional cardiovascular complaints Respiratory: Reports as per HPI and Reports no additional respiratory complaints Gastrointestinal: Reports as per HPI and Reports no additional gastrointestinal complaints Genitourinary: Reports no additional female genitourinary complaints Musculoskeletal: Reports no additional musculoskeletal complaints Skin/Breast: Reports system reviewed and no additional complaints, except as docu Psychiatric: Reports no additional psychiatric complaints Endocrine: Reports no additional endocrine complaints Hematologic/Lymphatic: Reports no additional hematologic/lymphatic complaints Allergic/Immunologic: Reports no additional allergic/immunologic complaints Reports system reviewed and no additional complaints, except as documented and Reports Abnormal speech present [facility] Past Medical History Medical History A-fib Acute on chronic combined systolic and diastolic congestive heart failure Alcohol use disorder, severe, dependence Alcoholic intoxication Atrial fibrillation, rapid CAD (coronary artery disease) Cardiomyopathy CHF (congestive heart failure) Cirrhosis Depression Diabetes ETOH abuse HTN (hypertension) Hyperglycemia Social History Social History Household Members: None Housing: Homeless Housing Other:: rents room Do you presently have visiting nurse or other home services: No Unable to assess alcohol history related to: Refusing to respond Alcohol intake: current Alcohol intake frequency: 3 or more drinks per day Alcohol type: beer and hard liquor Patient Tobacco Use Status: Current everyday Tobacco user Second Hand Smoke Exposure: No Advance Directives: No Advance Directives Information Provided: No service: No Current occupational status: unemployed and disabled Physical Exam Vital Signs: Vital Signs: Last Vital Signs Temp 98.4 F 11/23/20 22:46 Pulse 115 H 11/24/20 06:20 Resp 16 11/24/20 06:20 BP 173/99 H 11/24/20 06:20 Pulse Ox 97 11/24/20 06:20 Body Mass Index 37.6 Vital signs have been reviewed as appeared to be correct. Blood pressure normal. Heart rate rapid . Respiration rate normal. Temperature normal. Oxygen saturation normal. Appearance: Alert. Oriented X3. No acute distress. Alcohol on breath Head: Normal external exam. Normocephalic. Atraumatic. No Mari signs noted. No raccoon eyes noted Eyes: PERRLA. EOMI. Conjunctiva and sclera normal. Eyelids normal. ENT: TM's Normal. Pharynx normal. Uvula midline. Moist mucous membranes. No trismus noted. No drooling noted. No muffled voice noted. Neck: Normal inspection. Neck supple. FROM. No adenopathy. Thyroid Normal. No meningeal signs. No neck mass noted. CVS: Rapid atrial fibrillation. Heart sound normal. No murmurs noted. Pulses normal throughout. Respiratory: No respiratory distress. Painless inspiration. Breath sounds normal. No wheezes/rales/rhonchi noted. Chest nontender. No accessory muscle usage noted or decreased air movement noted. Abdomen: Soft and nontender. Bowel sounds normal in all 4 quadrants. No distention noted. No organomegaly noted. No visible injury noted. Back: No CVA tenderness. Full range of motion noted. Skin: Skin warm and dry. Normal skin color. Normal skin turgor. No rashes/lesions/lacerations noted. Extremities: No lower extremity edema. Extremities exhibit normal range of motion. Extremities nontender. Neuro: Oriented X 3. Cranial nerve exam: II-XII are grossly intact No motor deficit. No sensory deficit. Reflexes normal. Course Course Course Narrative: Assessment and plan. Alcohol intoxication, hyperglycemia that was controlled with insulin IV. Patient otherwise appears stable, patient was just discharged 3 days ago. Sonia jackson is in no active CHF. Patient is sober now will discharge home. MDM - Alcohol Lab Data Attestation: I reviewed the patient's lab results. Result diagrams: 11/24/20 00:18 11/24/20 00:18 Labs: Lab Results 11/24/20 11/24/20 11/24/20 Range/Units 00:18 00:18 00:18 WBC 6.3 (4.8-10.8) X10*3/uL RBC 3.76 L (4.60-5.80) X10*6/uL Hgb 12.1 L (14.0-18.0) g/dl Hct 36.2 L (42-52) % MCV 96.3 (80-98) fL MCH 32.2 (27.0-33.0) pg MCHC 33.4 (31.0-36.0) g/dl RDW 14.4 (11.0-16.0) % Plt Count 152 L D (160-400) X10*3/uL MPV 10.2 (9.4-12.4) fL Immature Gran % (Auto) 0.3 (0.0-0.4) % Neut % (Auto) 62.7 (45-73) % Lymph % (Auto) 21.1 (20-40) % [place] % (Auto) 13.5 H (2-11) % Eos % (Auto) 1.9 (0-4) % Baso % (Auto) 0.5 (0-2) % Lymph # (Auto) 1.3 (1.2-4.9) X10*3/uL [place] # (Auto) 0.9 (0.1-1.2) X10*3/uL Eos # (Auto) 0.1 (0.0-0.4) X10*3/uL Baso # (Auto) 0.0 (0.0-0.2) X10*3/uL Abs Immat Gran (auto) 0.02 (0.00-0.03) X10*3/uL Absolute Neuts (auto) 4.0 (2.0-8.3) X10*3/uL Absolute Nucleated RBC 0.000 (0.0-0.012) X10*3/uL Nucleated RBC % (auto) 0.0 (0.0-0.2) /100WBC Sodium 139 (135-145) mmol/L Potassium 3.2 L (3.3-5.1) mmol/L Chloride 99 (96-108) mmol/L Carbon Dioxide 25 (22-29) mmol/L Anion Gap 18 (12-20) BUN 2 L D (9-16) mg/dL Creatinine 0.82 (0.5-1.4) mg/dL Estim Creat Clear Calc 121.6 Estimated GFR > 60 POC Glucose (60-115) mg/dL Random Glucose 457 H* (60-115) mg/dL Calcium 8.8 (8.4-10.2) mg/dL Magnesium 1.6 (1.6-2.6) mg/dL B-Natriuretic Peptide 103 H (<100) pg/mL Lipase 7 L (8-78) U/L Ethyl Alcohol mg/dL 11/24/20 11/24/20 11/24/20 Range/Units 00:18 00:53 03:40 WBC (4.8-10.8) X10*3/uL RBC (4.60-5.80) X10*6/uL Hgb (14.0-18.0) g/dl Hct (42-52) % MCV (80-98) fL MCH (27.0-33.0) pg MCHC (31.0-36.0) g/dl RDW (11.0-16.0) % Plt Count (160-400) X10*3/uL MPV (9.4-12.4) fL Immature Gran % (Auto) (0.0-0.4) % Neut % (Auto) (45-73) % Lymph % (Auto) (20-40) % [place] % (Auto) (2-11) % Eos % (Auto) (0-4) % Baso % (Auto) (0-2) % Lymph # (Auto) (1.2-4.9) X10*3/uL [place] # (Auto) (0.1-1.2) X10*3/uL Eos # (Auto) (0.0-0.4) X10*3/uL Baso # (Auto) (0.0-0.2) X10*3/uL Abs Immat Gran (auto) (0.00-0.03) X10*3/uL Absolute Neuts (auto) (2.0-8.3) X10*3/uL Absolute Nucleated RBC (0.0-0.012) X10*3/uL Nucleated RBC % (auto) (0.0-0.2) /100WBC Sodium (135-145) mmol/L Potassium (3.3-5.1) mmol/L Chloride (96-108) mmol/L Carbon Dioxide (22-29) mmol/L Anion Gap (12-20) BUN (9-16) mg/dL Creatinine (0.5-1.4) mg/dL Estim Creat Clear Calc Estimated GFR POC Glucose 347 H 290 H (60-115) mg/dL Random Glucose (60-115) mg/dL Calcium (8.4-10.2) mg/dL Magnesium (1.6-2.6) mg/dL B-Natriuretic Peptide (<100) pg/mL Lipase (8-78) U/L Ethyl Alcohol 262 mg/dL ECG Data ECG #1: Interpretation: Rapid atrial fibrillation with rapid ventricular response of 120, left axis deviation, no acute ST-T changes, no change from old EKG. Discharge Plan Discharge Clinical Impression: Alcohol intoxication, Atrial fibrillation Patient Disposition: Home, Self-Care Instructions: Alcohol Intoxication (ED) Prescriptions: No Action multivitamin Tablet 1 tab PO DAILY RF: 0 metoprolol tartrate 50 mg tablet 1 tab PO BID RF: 0 Lantus U-100 Insulin 100 unit/mL Solution 8 unit subcut DAILY Qty: 10 RF: 0 atorvastatin 40 mg tablet 1 tab PO BEDTIME RF: 0 trazodone 50 mg tablet 1 tab PO BEDTIME PRN (Reason: Insomnia) RF: 0 gabapentin 400 mg capsule 1 cap PO TID RF: 0 metformin 1,000 mg tablet 1 tab PO BID RF: 0 furosemide [Lasix] 40 mg tablet 40 mg PO BID 30 Days Qty: 60 RF: 0 aspirin 81 mg Tablet,Delayed Release (Dr/Ec) 81 mg PO DAILY Qty: 30 RF: 0 folic acid 1 mg Tablet 1 mg PO DAILY Qty: 30 RF: 0 thiamine mononitrate (vit B1) 100 mg Tablet 100 mg PO DAILY Qty: 30 RF: 0 Referrals: Physician,Unknown [Primary Care Provider] - 2 days
[2020-11-24] MEDS: LORazepam 2 MG/ML VIAL 1 MG IVPUSH (00:23)
[2020-11-24] MEDS: 0.9 % Sodium Chloride 1,000 ML 999 ML IVCONT (00:23)
[2020-11-24 00:24] LABS: Basophils Percent Auto 0.5 % (0-2); Eosinophils Absolute Auto 0.1 X10*3/uL (0.0-0.4); Eosinophils Percent Auto 1.9 % (0-4); Hematocrit 36.2 % (42-52); Hemoglobin 12.1 g/dl (14.0-18.0); Imm Gran Abs Auto 0.02 X10*3/uL (0.00-0.03); Imm Gran Pct Auto 0.3 % (0.0-0.4); Lymphocytes Absolute Auto 1.3 X10*3/uL (1.2-4.9); Lymphocytes Percent Auto 21.1 % (20-40); MANUAL DIFF FLAG NO; Mean Corpuscular HGB Conc 33.4 g/dl (31.0-36.0); Mean Corpuscular Hemoglobin 32.2 pg (27.0-33.0); Mean Corpuscular Volume 96.3 fL (80-98); Mean Platelet Volume 10.2 fL (9.4-12.4); Monocytes Absolute Auto 0.9 X10*3/uL (0.1-1.2); Monocytes Percent Auto 13.5 % (2-11); Neutrophils Percent Auto 62.7 % (45-73); Platelet Count 152 X10*3/uL (160-400); Red Blood Count 3.76 X10*6/uL (4.60-5.80); Red Cell Distribution Width 14.4 % (11.0-16.0); White Blood Count 6.3 X10*3/uL (4.8-10.8)
[2020-11-24] MEDS: Magnesium Sulfate/D5W 1 GM/100 ML PIGGYBACK IV (00:26)
[2020-11-24 00:57] LABS: Glucose, Whole Blood 347 mg/dL (60-115)
[2020-11-24 01:00] LABS: Ethanol 262 mg/dL
[2020-11-24 01:05] LABS: B Type Natriuretic Peptide 103 pg/mL (<100)
[2020-11-24 01:19] LABS: Anion Gap 18 (12-20); Blood Urea Nitrogen 2 mg/dL (9-16); Calcium 8.8 mg/dL (8.4-10.2); Carbon Dioxide 25 mmol/L (22-29); Chloride 99 mmol/L (96-108); Creatinine Clr Calc Pharmacy 121.6; Estimated Glomerular Filt Rate > 60; Glucose Random 457 mg/dL (60-115); Lipase 7 U/L (8-78); Magnesium 1.6 mg/dL (1.6-2.6); Potassium 3.2 mmol/L (3.3-5.1); Sodium 139 mmol/L (135-145)
[2020-11-24] MEDS: Potassium Chloride Packet 20 MEQ PACKET 40 MEQ PO (02:23)
[2020-11-24] MEDS: Insulin Regular, Human 100 UNIT/ML 3 ML VIAL 10 UNIT IVPUSH (02:23)
[2020-11-24 03:45] LABS: Glucose, Whole Blood 290 mg/dL (60-115)
[2020-11-24 06:20] VITALS: BP 173/99; PULSE 115; RESP 16; O2SAT 97
[2020-11-24 08:06] LABS: Glucose, Whole Blood 332 mg/dL (60-115)
[2020-11-24 08:28] VITALS: BP 159/84; PULSE 120; RESP 28; O2SAT 97
--- NOTE | 2020-11-24 08:29 | ECG_ITS ---
Test Reason : AFIB Blood Pressure : / mmHG Vent. Rate : 117 BPM Atrial Rate : 178 BPM P-R Int : 000 ms QRS Dur : 092 ms QT Int : 392 ms P-R-T Axes : 000 -59 087 degrees QTc Int : 546 ms Afib with RVR Left axis deviation Cannot rule out Inferior infarct (cited on or before 02-JUL-2016) Anterior infarct (cited on or before 02-JUL-2016) Prolonged QT Abnormal ECG When compared with ECG of 23-NOV-2020 23:52, No significant changes seen Referred By: Michael Yen Electronically Signed By:David Ernandez
--- NOTE | 2020-11-24 08:29 | PC.NURSE ---
Pt POC 332, rapid a fib on tele up to 130s, Dr Cardenas aware that pt is unable to be discharged at this time. EKG obtained.
[2020-11-24 08:50] VITALS: BP 171/102; PULSE 126
[2020-11-24] MEDS: Metoprolol Tartrate 50 MG TABLET PO (08:50)
--- NOTE | 2020-11-24 08:52 | PC.NURSE ---
Plan to give Metoprolol 50mg, then monitor for 1 hour. Pt appears comfortable, asleep. Eyes closed when not engaged
[2020-11-24 10:12] VITALS: BP 100/76; PULSE 102; RESP 20
== END 2020-11-24 10:22 | disposition home or self-care (01) ==
PROVIDERS: Emergency Medicine; Emergency Provider Emergency Medicine Emergency Medical Services
DX: F10.129 Alcohol abuse with intoxication, unspecified (principal); I48.91 Unspecified atrial fibrillation; R06.02 Shortness of breath; I25.10 Atherosclerotic heart disease of native coronary artery without angina pectoris; I10 Essential (primary) hypertension; Z79.899 Other long term (current) drug therapy; Z79.82 Long term (current) use of aspirin; Z59.0 Homelessness; F17.200 Nicotine dependence, unspecified, uncomplicated; Z71.6 Tobacco abuse counseling; Z71.41 Alcohol abuse counseling and surveillance of alcoholic
CPT/HCPCS: 36415; 80048; 82077; 82947; 83690; 83735; 83880; 85025; 93005; 96361; 96365; 96375; 99285; J2060; J3475

== ENCOUNTER 2020-12-01 07:23 | Emergency (ER) | payer MEDICARE, MEDICAID, SELFPAY ==
[2020-12-01] VITALS (15 sets, daily range): BP systolic 106–160; BP diastolic 73–92; PULSE 87–127; RESP 18–30; TEMP 36.4–37.1; O2SAT 96–99; BMI 31.9
--- NOTE | ~2020-12-01 | XR_ITS ---
EXAMINATION: XR CHEST CLINICAL INFORMATION: Evaluate for edema COMPARISON: November 16, 2020 and November 01, 2020 TECHNIQUE: AP portable view of the chest was obtained. FINDINGS: There are again noted to be some ill-defined patchy regions of groundglass opacity with some mild improvement in disease within the right lower lobe. No pneumothorax or pleural effusion. No definite central bronchial wall thickening is seen and therefore I would think pulmonary edema would be a less likely etiology of above findings. Heart upper limits of normal in size. XR/XR chest 1V IMPRESSION: Continued bilateral regions of patchy groundglass disease with mild improvement of disease within the right lower lobe.
--- NOTE | 2020-12-01 07:27 | ECG_ITS ---
Test Reason : GENERAL MEDICINE Blood Pressure : / mmHG Vent. Rate : 097 BPM Atrial Rate : 111 BPM P-R Int : 000 ms QRS Dur : 094 ms QT Int : 364 ms P-R-T Axes : 000 -73 101 degrees QTc Int : 462 ms Atrial fibrillation with premature ventricular or aberrantly conducted complexes Left axis deviation Cannot rule out Inferior infarct (cited on or before 02-JUL-2016) Anterior infarct (cited on or before 02-JUL-2016) Abnormal ECG When compared with ECG of 24-NOV-2020 08:29, No significant changes seen Referred By: Cat Joy Electronically Signed By:ADRIANA CORRAL
--- NOTE | 2020-12-01 07:41 | ED_ITS ---
HPI - Extremity Problem General Chief complaint: General Medical Stated complaint: leg swelling Time Seen by Provider: 12/01/20 07:27 Source: patient, old records reviewed and american sign language interpreter Mode of arrival: ambulatory Limitations: no limitations History of Present Illness MD Complaint: extremity pain and extremity swelling Onset (ago): day(s) (4) Pain Consistency: constant Location: left, right and lower extremity Quality: aching and dull Radiation: none Relieving factors: nothing Exacerbating factors: walking, exertion and palpation Associated symptoms: denies other symptoms Context: other (has not taken any of his medications in 10 days because he could'nt walk to the pharmacy, now his legs are so swollen he definitely cannot walk to the pharmacy) Related Data Home Medications Medication Instructions Recorded Confirmed atorvastatin 40 mg tablet 1 tab PO BEDTIME 09/11/20 12/01/20 gabapentin 400 mg capsule 1 cap PO TID 09/11/20 12/01/20 metformin 1,000 mg tablet 1 tab PO BIDWM 09/11/20 12/01/20 trazodone 50 mg tablet 1 tab PO BEDTIME PRN 09/11/20 12/01/20 metoprolol tartrate 50 mg tablet 1 tab PO BID 11/16/20 11/16/20 multivitamin 1 tab PO DAILY 11/16/20 12/01/20 Previous Rx's Medication Instructions Recorded furosemide 40 mg tablet (Lasix) 40 mg PO BID 30 Days #60 tab 09/14/20 aspirin 81 mg tablet,delayed 81 mg PO DAILY #30 tab 11/04/20 release folic acid 1 mg tablet 1 mg PO DAILY #30 tab 11/04/20 thiamine mononitrate (vit B1) 100 100 mg PO DAILY #30 tab 11/04/20 mg tablet insulin glargine 100 unit/mL 8 unit SUBCUT DAILY #10 ml 11/20/20 subcutaneous solution (Lantus U-100 Insulin) Allergies Allergy/AdvReac Type Severity Reaction Status Date / Time Penicillins [PCN] Allergy Unknown UNKNOWN Verified 09/03/20 16:05 Review of Systems Review of Systems: Constitutional : No Weight loss, No Fever, No Chills, No Fatigue, No Malaise ENT/Mouth : No sore throat, No Rhinorrhea Eyes: No Eye Pain, No Swelling, No Redness Cardiovascular : No Chest Pain, No SOB, pos Dyspnea on Exertion, pos Orthopnea, pos Edema, No Palpitations Respiratory : No Cough, No Sputum, No Wheezing Gastrointestinal : No Nausea, No Vomiting, No Diarrhea, No Constipation, No abdominal Pain, No Hematochezia, No Melena Genitourinary : No Dysuria, No Urinary Frequency, No Hematuria, Musculoskeletal : No joint pain, No Myalgias, No Joint Swelling Skin : pos Skin Lesions, No rash Neuro : No Weakness, No Numbness, No Dizziness, No Headache Psych : No Anxiety/Panic, No Depression Heme/Lymph: No Bruising, No Bleeding,No Lymphadenopathy Endocrine : No Polyuria, No Polydipsia All other systems reviewed and are negative [facility] Past Medical History Attestation statement: The following information was validated with the patient. Medical History A-fib Acute on chronic combined systolic and diastolic congestive heart failure Alcohol use disorder, severe, dependence Alcoholic intoxication Atrial fibrillation, rapid CAD (coronary artery disease) Cardiomyopathy CHF (congestive heart failure) Cirrhosis Depression Diabetes ETOH abuse HTN (hypertension) Hyperglycemia Social History Social History Household Members: None Housing: Homeless Housing Other:: rents room Do you presently have visiting nurse or other home services: No Unable to assess alcohol history related to: Refusing to respond Alcohol intake: current Alcohol intake frequency: 3 or more drinks per day [place] type: beer and hard liquor Patient Tobacco Use Status: Current everyday Tobacco user Second Hand Smoke Exposure: No Advance Directives: No Advance Directives Information Provided: No service: No Current occupational status: unemployed and disabled Physical Exam Vital Signs: Vital Signs: Last Vital Signs Temp 97.5 F 12/01/20 12:18 Pulse 87 12/01/20 12:18 Resp 24 H 12/01/20 12:18 BP 132/86 12/01/20 12:18 Pulse Ox 97 12/01/20 12:18 Body Mass Index 31.9 Appearance: Alert. Oriented X3. No acute distress. Eyes: Pupils equal, round and reactive to light. ENT: Pharynx normal. Neck: Normal inspection. Neck supple. CVS: tachycardic/irregular heart rate and rhythm. Pulses normal. Respiratory: No respiratory distress. Breath sounds normal. Abdomen: Soft and nontender. Skin: Skin warm and dry. bilateral shiny erythematous areas on both shins, clear fluid filled vesicles that are weeping noted, dirty crusted 3cm open lesion covered in dirt (likely sight of old blister) no warmth no increased erythema compared to other side Extremities: pitting 3+ lower extremity edema. Feet are wet and macerated Neuro: Oriented X 3. No motor deficit. No sensory deficit. Course Course Course Narrative: labs at baseline VS improved patient wants STR MDM - Extremity (Nontraumatic) MDM Narrative Medical decision making narrative: 60 yo male with hx of CHF, afib not on AC therapy due to multiple falls from chronic ETOH abuse, CAD, DM comes in with 4 days of LE swelling and pain due to the fact he has not taken his medications x 10 days. At this time he needs labs, CXR, IV dilt for rate control HR in 130s, IV lasix. Doubt DVT given symmetric complaint and it can be related to the fact he is not compliant with his medications. I do not appreciate cellulitis this seems consistent wtih venous stasis dermatitis, open blister was cleaned and dressed by me. Dispo per results and findings. CM to be involved given he has Rx he just cannot get to the pharmacy to fill them. He is partially interested in STR. Lab Data Result diagrams: 12/01/20 08:26 12/01/20 08:26 Labs: Lab Results 12/01/20 12/01/20 12/01/20 Range/Units 08:26 08:26 08:26 WBC 7.3 (4.8-10.8) X10*3/uL RBC 3.76 L (4.60-5.80) X10*6/uL Hgb 12.1 L (14.0-18.0) g/dl Hct 36.4 L (42-52) % MCV 96.8 (80-98) fL MCH 32.2 (27.0-33.0) pg MCHC 33.2 (31.0-36.0) g/dl RDW 15.1 (11.0-16.0) % Plt Count 141 L (160-400) X10*3/uL MPV Not Reportable Immature Gran % (Auto) 0.4 (0.0-0.4) % Neut % (Auto) 76.2 H (45-73) % Lymph % (Auto) 11.5 L (20-40) % Price % (Auto) 10.0 (2-11) % Eos % (Auto) 1.6 (0-4) % Baso % (Auto) 0.3 (0-2) % Lymph # (Auto) 0.8 L (1.2-4.9) X10*3/uL Price # (Auto) 0.7 (0.1-1.2) X10*3/uL Eos # (Auto) 0.1 (0.0-0.4) X10*3/uL Baso # (Auto) 0.0 (0.0-0.2) X10*3/uL Abs Immat Gran (auto) 0.03 (0.00-0.03) X10*3/uL Absolute Neuts (auto) 5.6 (2.0-8.3) X10*3/uL Absolute Nucleated RBC 0.000 (0.0-0.012) X10*3/uL Nucleated RBC % (auto) 0.0 (0.0-0.2) /100WBC Smear Tech's Comments VERIFIED PT (9.9-13.0) SEC INR (0.9-1.1) APTT (24.1-38.0) SEC Sodium 135 (135-145) mmol/L Potassium 4.2 D (3.3-5.1) mmol/L Chloride 99 (96-108) mmol/L Carbon Dioxide 23 (22-29) mmol/L Anion Gap 17 (12-20) BUN 6 L D (9-16) mg/dL Creatinine 0.77 (0.5-1.4) mg/dL Estim Creat Clear Calc 115.6 Estimated GFR > 60 Random Glucose 302 H (60-115) mg/dL Calcium 9.2 (8.4-10.2) mg/dL Magnesium (1.6-2.6) mg/dL Total Bilirubin (0.0-1.0) mg/dL Direct Bilirubin (0.0-0.5) mg/dL AST (5-37) U/L ALT (0-40) U/L Alkaline Phosphatase (39-117) U/L Troponin I High Sens (<3.5-35.0) ng/L B-Natriuretic Peptide 156 H (<100) pg/mL Total Protein (6.5-8.0) g/dL Albumin (3.5-5.0) g/dL Lipase (8-78) U/L Ethyl Alcohol mg/dL Coronavirus (PCR) (Negative) Influenza Type A (PCR) (Negative) Influenza Type B (PCR) (Negative) RSV RNA Qual (PCR) (Negative) 12/01/20 12/01/20 12/01/20 Range/Units 08:26 08:26 08:26 WBC (4.8-10.8) X10*3/uL RBC (4.60-5.80) X10*6/uL Hgb (14.0-18.0) g/dl Hct (42-52) % MCV (80-98) fL MCH (27.0-33.0) pg MCHC (31.0-36.0) g/dl RDW (11.0-16.0) % Plt Count (160-400) X10*3/uL MPV Immature Gran % (Auto) (0.0-0.4) % Neut % (Auto) (45-73) % Lymph % (Auto) (20-40) % Price % (Auto) (2-11) % Eos % (Auto) (0-4) % Baso % (Auto) (0-2) % Lymph # (Auto) (1.2-4.9) X10*3/uL Price # (Auto) (0.1-1.2) X10*3/uL Eos # (Auto) (0.0-0.4) X10*3/uL Baso # (Auto) (0.0-0.2) X10*3/uL Abs Immat Gran (auto) (0.00-0.03) X10*3/uL Absolute Neuts (auto) (2.0-8.3) X10*3/uL Absolute Nucleated RBC (0.0-0.012) X10*3/uL Nucleated RBC % (auto) (0.0-0.2) /100WBC Smear Tech's Comments PT 13.3 H (9.9-13.0) SEC INR 1.2 H (0.9-1.1) APTT 34.8 (24.1-38.0) SEC Sodium (135-145) mmol/L Potassium (3.3-5.1) mmol/L Chloride (96-108) mmol/L Carbon Dioxide (22-29) mmol/L Anion Gap (12-20) BUN (9-16) mg/dL Creatinine (0.5-1.4) mg/dL Estim Creat Clear Calc Estimated GFR Random Glucose (60-115) mg/dL Calcium (8.4-10.2) mg/dL Magnesium 1.6 (1.6-2.6) mg/dL Total Bilirubin 1.2 H (0.0-1.0) mg/dL Direct Bilirubin 0.6 H (0.0-0.5) mg/dL AST 22 (5-37) U/L ALT 19 (0-40) U/L Alkaline Phosphatase 130 H (39-117) U/L Troponin I High Sens (<3.5-35.0) ng/L B-Natriuretic Peptide (<100) pg/mL Total Protein 7.2 (6.5-8.0) g/dL Albumin 3.6 (3.5-5.0) g/dL Lipase 7 L (8-78) U/L Ethyl Alcohol < 10 mg/dL Coronavirus (PCR) (Negative) Influenza Type A (PCR) (Negative) Influenza Type B (PCR) (Negative) RSV RNA Qual (PCR) (Negative) 12/01/20 12/01/20 Range/Units 08:26 08:27 WBC (4.8-10.8) X10*3/uL RBC (4.60-5.80) X10*6/uL Hgb (14.0-18.0) g/dl Hct (42-52) % MCV (80-98) fL MCH (27.0-33.0) pg MCHC (31.0-36.0) g/dl RDW (11.0-16.0) % Plt Count (160-400) X10*3/uL MPV Immature Gran % (Auto) (0.0-0.4) % Neut % (Auto) (45-73) % Lymph % (Auto) (20-40) % Price % (Auto) (2-11) % Eos % (Auto) (0-4) % Baso % (Auto) (0-2) % Lymph # (Auto) (1.2-4.9) X10*3/uL Price # (Auto) (0.1-1.2) X10*3/uL Eos # (Auto) (0.0-0.4) X10*3/uL Baso # (Auto) (0.0-0.2) X10*3/uL Abs Immat Gran (auto) (0.00-0.03) X10*3/uL Absolute Neuts (auto) (2.0-8.3) X10*3/uL Absolute Nucleated RBC (0.0-0.012) X10*3/uL Nucleated RBC % (auto) (0.0-0.2) /100WBC Smear Tech's Comments PT (9.9-13.0) SEC INR (0.9-1.1) APTT (24.1-38.0) SEC Sodium (135-145) mmol/L Potassium (3.3-5.1) mmol/L Chloride (96-108) mmol/L Carbon Dioxide (22-29) mmol/L Anion Gap (12-20) BUN (9-16) mg/dL Creatinine (0.5-1.4) mg/dL Estim Creat Clear Calc Estimated GFR Random Glucose (60-115) mg/dL Calcium (8.4-10.2) mg/dL Magnesium (1.6-2.6) mg/dL Total Bilirubin (0.0-1.0) mg/dL Direct Bilirubin (0.0-0.5) mg/dL AST (5-37) U/L ALT (0-40) U/L Alkaline Phosphatase (39-117) U/L Troponin I High Sens 29.6 D (<3.5-35.0) ng/L B-Natriuretic Peptide (<100) pg/mL Total Protein (6.5-8.0) g/dL Albumin (3.5-5.0) g/dL Lipase (8-78) U/L Ethyl Alcohol mg/dL Coronavirus (PCR) NEGATIVE (Negative) Influenza Type A (PCR) NEGATIVE (Negative) Influenza Type B (PCR) NEGATIVE (Negative) RSV RNA Qual (PCR) NEGATIVE (Negative) ECG Data Attestation EKG: I personally reviewed and interpreted this ECG as follows: ECG interpretation date: 12/01/20 ECG interpretation time: 08:53 Interpretation: Rate: 97 Rhythm: afib with RVR [place]: left Normal P waves. Normal IZABEL. Normal QRS complex. ST T wave : normal no NANDA, nonspecific qTC: normal prior studies: no acute ischemia, no change from prior The study has been interpreted contemporaneously by me. . Discharge Plan Discharge Clinical Impression: Bilateral edema of lower extremity, Medical non-compliance A-fib Qualifiers: Atrial fibrillation type: longstanding persistent Qualified Code(s): I48.11 - L ongstanding persistent atrial fibrillation Instructions: A-fib (Atrial Fibrillation) (ED), Edema (ED) Additional Instructions: return to ED for any worsening symptoms or concerns Prescriptions: No Action multivitamin Tablet 1 tab PO DAILY RF: 0 metoprolol tartrate 50 mg tablet 1 tab PO BID RF: 0 Lantus U-100 Insulin 100 unit/mL Solution 8 unit subcut DAILY Qty: 10 RF: 0 atorvastatin 40 mg tablet 1 tab PO BEDTIME RF: 0 trazodone 50 mg tablet 1 tab PO BEDTIME PRN (Reason: Insomnia) RF: 0 gabapentin 400 mg capsule 1 cap PO TID RF: 0 metformin 1,000 mg tablet 1 tab PO BIDWM RF: 0 furosemide [Lasix] 40 mg tablet 40 mg PO BID 30 Days Qty: 60 RF: 0 aspirin 81 mg Tablet,Delayed Release (Dr/Ec) 81 mg PO DAILY Qty: 30 RF: 0 folic acid 1 mg Tablet 1 mg PO DAILY Qty: 30 RF: 0 thiamine mononitrate (vit B1) 100 mg Tablet 100 mg PO DAILY Qty: 30 RF: 0
[2020-12-01] MEDS: dilTIAZem HCL 50 MG/10 ML VIAL 10 MG IVPUSH (07:59)
[2020-12-01] MEDS: Magnesium Sulfate/H2O 2 GM/50 ML PIGGYBACK IV (08:00)
[2020-12-01] MEDS: Furosemide 40 MG/4 ML VIAL IVPUSH (08:00)
[2020-12-01] MEDS: Thiamine HCL 200 MG/2 ML VIAL 100 MG IVPUSH (08:00)
[2020-12-01 08:42] LABS: Basophils Percent Auto 0.3 % (0-2); Eosinophils Absolute Auto 0.1 X10*3/uL (0.0-0.4); Eosinophils Percent Auto 1.6 % (0-4); Hematocrit 36.4 % (42-52); Hemoglobin 12.1 g/dl (14.0-18.0); Imm Gran Abs Auto 0.03 X10*3/uL (0.00-0.03); Imm Gran Pct Auto 0.4 % (0.0-0.4); Lymphocytes Absolute Auto 0.8 X10*3/uL (1.2-4.9); Lymphocytes Percent Auto 11.5 % (20-40); MANUAL DIFF FLAG SCAN; Mean Corpuscular HGB Conc 33.2 g/dl (31.0-36.0); Mean Corpuscular Hemoglobin 32.2 pg (27.0-33.0); Mean Corpuscular Volume 96.8 fL (80-98); Monocytes Absolute Auto 0.7 X10*3/uL (0.1-1.2); Neutrophils Absolute Auto 5.6 X10*3/uL (2.0-8.3); Neutrophils Percent Auto 76.2 % (45-73); PLT CLUMP 1; Red Blood Count 3.76 X10*6/uL (4.60-5.80); Red Cell Distribution Width 15.1 % (11.0-16.0); SCAN SMEAR FLAG 1
[2020-12-01 08:43] LABS: White Blood Count 7.3 X10*3/uL (4.8-10.8)
[2020-12-01 08:44] LABS: INTERNATIONAL NORM RATIO 1.2 (0.9-1.1); Prothrombin Time 13.3 SEC (9.9-13.0)
[2020-12-01 08:46] LABS: Partial Thromboplastin Time 34.8 SEC (24.1-38.0)
[2020-12-01 08:54] LABS: Ethanol < 10 mg/dL
[2020-12-01 08:55] LABS: Anion Gap 17 (12-20); Blood Urea Nitrogen 6 mg/dL (9-16); Calcium 9.2 mg/dL (8.4-10.2); Carbon Dioxide 23 mmol/L (22-29); Chloride 99 mmol/L (96-108); Creatinine Clr Calc Pharmacy 115.6; Estimated Glomerular Filt Rate > 60; Glucose Random 302 mg/dL (60-115); Potassium 4.2 mmol/L (3.3-5.1); Sodium 135 mmol/L (135-145)
[2020-12-01 08:56] LABS: Alanine Aminotransferase 19 U/L (0-40); Albumin Level 3.6 g/dL (3.5-5.0); Alkaline Phosphatase 130 U/L (39-117); Aspartate Amino Transferase 22 U/L (5-37); Bilirubin Direct 0.6 mg/dL (0.0-0.5); Bilirubin Total 1.2 mg/dL (0.0-1.0); Lipase 7 U/L (8-78); Magnesium 1.6 mg/dL (1.6-2.6); Platelet Count 141 X10*3/uL (160-400); Total Protein 7.2 g/dL (6.5-8.0)
[2020-12-01 09:02] LABS: B Type Natriuretic Peptide 156 pg/mL (<100)
[2020-12-01 09:04] LABS: Troponin-I High Sensitivity 29.6 ng/L (<3.5-35.0)
[2020-12-01 09:21] LABS: Influenza A PCR NEGATIVE (Negative); Influenza B PCR NEGATIVE (Negative); Resp Syncy Virus RNA Qual PCR NEGATIVE (Negative); SARS COV2 PCR INHOUSE NEGATIVE (Negative)
[2020-12-01] MEDS: Metoprolol Tartrate 50 MG TABLET PO ×2 (09:27→21:14)
[2020-12-01] MEDS: Acetaminophen 325 MG TABLET 650 MG PO (09:27)
[2020-12-01 09:35] LABS: SLIDE REVIEW VERIFIED
--- NOTE | 2020-12-01 14:08 | MHC.CM.ED ---
Received case management consult from Dr Joy. Patient came to the ER due to leg swelling. Patient states he hasn't been able to walk to [facility] in [place] to get his prescriptions. He needs his prescriptions to go to [facility]. Physical therapy eval completed. Short term rehab is recommended. Patient has been to [facility] in the past. Patient has not received 2 covid vaccines. Anticipate patient will be difficult to place due to this. Referral broadcasted in [employer]. [facility] is willing to offer a bed. However, patient had M5 admission in [address] [facility] exemption letter prior to transferring to [facility]. PASRR submitted. Continue to monitor for d/c needs.
[2020-12-01 17:56] LABS: Glucose, Whole Blood 314 mg/dL (60-115)
[2020-12-01] MEDS: metFORMIN HCl 1,000 MG TABLET 1000 MG PO (17:58)
--- NOTE | 2020-12-01 18:54 | PC.NURSE ---
pt working with CM for rehab. Pt aware of plan. calm and cooperative at tjos to,eTiara MCLAUGLHINS
[2020-12-01] MEDS: Atorvastatin Calcium 40 MG TABLET PO (21:14)
[2020-12-01] MEDS: Gabapentin 400 MG CAPSULE PO (21:14)
[2020-12-01] MEDS: Furosemide 40 MG TABLET PO (21:16)
[2020-12-02 02:08] VITALS: BP 134/80; PULSE 88; RESP 14; O2SAT 96
[2020-12-02 05:25] VITALS: BP 118/71; PULSE 99; RESP 16; O2SAT 96
[2020-12-02] MEDS: Insulin Glargine,Hum.rec.anlog 100 UNIT/ML 10 ML VIAL 8 UNIT SUBCUT (07:57)
[2020-12-02] MEDS: Multivitamin TABLET 1 TAB PO (07:58)
[2020-12-02] MEDS: Aspirin Enteric Coated 81 MG TABLET.DR PO (07:58)
[2020-12-02] MEDS: Gabapentin 400 MG CAPSULE PO (07:58)
[2020-12-02] MEDS: metFORMIN HCl 1,000 MG TABLET 1000 MG PO (07:58)
[2020-12-02 07:59] VITALS: BP 112/67; PULSE 97; RESP 16; O2SAT 96
[2020-12-02] MEDS: Folic Acid 1 MG TABLET PO (07:59)
[2020-12-02] MEDS: Thiamine HCL 100 MG TABLET PO (07:59)
[2020-12-02] MEDS: Metoprolol Tartrate 50 MG TABLET PO (07:59)
[2020-12-02] MEDS: Furosemide 40 MG TABLET PO (07:59)
--- NOTE | 2020-12-02 08:00 | PC.NURSE ---
pt alert,orientd. ate bkfst.
[2020-12-02 08:12] LABS: Glucose, Whole Blood 334 mg/dL (60-115)
[2020-12-02] MEDS: Insulin Lispro 100 UNIT/ML 3 ML VIAL SUBCUT (10:45)
--- NOTE | 2020-12-02 13:14 | PC.NURSE ---
PT EATING LUNCH
--- NOTE | 2020-12-02 13:21 | MHC.CM.PN ---
exemption letter was recieved today and [facility] to [facility]. pt has been accepted there. pt is leaving via [facility] at 2 pm. r.n , p.a. and patient are aware of this dc plan. cm to cont. to follow.
--- NOTE | 2020-12-02 14:40 | PC.NURSE ---
REPORT TO [facility]
== END 2020-12-02 14:41 | disposition skilled nursing facility (03) ==
PROVIDERS: Emergency Provider Emergency Medicine; PCP Family Medicine
DX: R60.0 Localized edema (principal); I48.11 Longstanding persistent atrial fibrillation; Z79.899 Other long term (current) drug therapy; Z20.822 Contact with and (suspected) exposure to COVID-19
CPT/HCPCS: 0241U; 36415; 71045; 80048; 80076; 82077; 82947; 83690; 83735; 83880; 84484; 85025; 85610; 85730; 93005; 96365; 96366; 96375; 97161; 99285; J1940; J3411; J3475

== ENCOUNTER 2021-03-30 14:19 | Emergency (ER) | payer MEDICARE, MEDICAID, SELFPAY ==
[2021-03-30 14:35] VITALS: BP 135/81; PULSE 118; RESP 20; TEMP 36.7; O2SAT 94; BMI 41.5
--- NOTE | 2021-03-30 15:02 | ED_ITS ---
HPI - Alcohol General Chief Complaint: ETOH/Substance Use Stated Complaint: LETHARGY/ETOH Time Seen by Provider: 03/30/21 15:02 Limitations: altered mental status (Intoxication, drowsiness) History of Present Illness HPI narrative: This is a 60-year-old male who appears to be homeless and who was brought in for alcohol intoxication. Patient is sleeping and cannot give any further history at this time. Further history was obtained, or least attempted with a spray i painter present. The patient states he he has been taking today and came in for that reason. He states he does have depression. He has some back pain. He can not explain why his feet are wet. He denies being homeless and gives an address test where he lives. The patient is too intoxicated to specify further history Related Data Home Medications Medication Instructions Recorded Confirmed atorvastatin 40 mg tablet 1 tab PO BEDTIME 09/11/20 12/01/20 gabapentin 400 mg capsule 1 cap PO TID 09/11/20 12/01/20 metformin 1,000 mg tablet 1 tab PO BIDWM 09/11/20 12/01/20 trazodone 50 mg tablet 1 tab PO BEDTIME PRN 09/11/20 12/01/20 metoprolol tartrate 50 mg tablet 1 tab PO BID 11/16/20 12/01/20 multivitamin 1 tab PO DAILY 11/16/20 12/01/20 Previous Rx's Medication Instructions Recorded furosemide 40 mg tablet (Lasix) 40 mg PO BID 30 Days #60 tab 09/14/20 aspirin 81 mg tablet,delayed 81 mg PO DAILY #30 tab 11/04/20 release folic acid 1 mg tablet 1 mg PO DAILY #30 tab 11/04/20 thiamine mononitrate (vit B1) 100 100 mg PO DAILY #30 tab 11/04/20 mg tablet insulin glargine 100 unit/mL 8 unit SUBCUT DAILY #10 ml 11/20/20 subcutaneous solution (Lantus U-100 Insulin) insulin lispro 100 unit/mL 5 unit SUBCUT TID #10 ml 12/02/20 subcutaneous solution Allergies Allergy/AdvReac Type Severity Reaction Status Date / Time Penicillins [PCN] Allergy Unknown UNKNOWN Verified 09/03/20 16:05 Review of Systems Review of Systems: Yes Unobtainable due to mental status Musculoskeletal: Musculoskeletal: Reports back pain Neurologic: Denies Sensory deficit (Neuro) Psychiatric: Psychiatric: Reports depression PMFSH Past Medical History Medical History A-fib Acute on chronic combined systolic and diastolic congestive heart failure Alcohol use disorder, severe, dependence Alcoholic intoxication Atrial fibrillation, rapid CAD (coronary artery disease) Cardiomyopathy CHF (congestive heart failure) Cirrhosis Depression Diabetes ETOH abuse HTN (hypertension) Hyperglycemia Social History Social History Household Members: None Housing: Homeless Housing Other:: rents room Do you presently have visiting nurse or other home services: No Unable to assess alcohol history related to: Refusing to respond Alcohol intake: current Alcohol intake frequency: 3 or more drinks per day Alcohol type: beer and hard liquor Patient Tobacco Use Status: Current everyday Tobacco user Second Hand Smoke Exposure: No Use of substances other than those prescribed or required for medical reasons: Unknown Advance Directives: No Advance Directives Information Provided: Yes service: No Current occupational status: unemployed and disabled Physical Exam Vital Signs: Vital Signs: Last Vital Signs Temp 98.8 F 03/30/21 16:22 Pulse 113 H 03/30/21 16:22 Resp 20 03/30/21 16:22 BP 145/94 H 03/30/21 16:22 Pulse Ox 98 03/30/21 16:22 BMI result Body Mass Index 41.5 Const: Other: Patient is sleeping on gurney, has socks and and sneakers which are somewhat wet. Patient does not awaken to voice, appears to be sleeping deeply General: cooperative, no acute distress and alert HENMT: Head: Yes normal to inspection Eyes: General: appearance normal, both eyes and all related structures Eyelids: Yes eyelids normal Conjunctivae: conjunctivae normal Pupils: Equal, round and reactive pupils present Neck: Neck: Yes normal visual inspection and Yes supple Chest: Chest palpation & inspection: normal inspection of the chest Resp: Effort & Inspection: normal respiratory effort Auscultation: clear to auscultation bilaterally Cardio: Rate: regular rate Rhythm: abnormal rhythm (Occasional premature beats) Heart sounds: S1 normal heart sound present, S2 normal heart sound present, no gallops, no murmurs and no rubs GI: Palpation (GI): Soft to palpation, nontender and Other GI palpation findings present (Non-distended) Auscultation: normal bowel sounds Skin: General skin exam: no rashes or lesions noted Neuro: General: no focal motor deficits and CN's II-XI intact bilaterally Cranial nerves: Yes Equal, round and reactive pupils present Cognition (Neuro): normal cognition Motor exam (neuro): 5/5 motor strength present throughout Sensory Exam: No Sensory deficit (Neuro) Extrem: Other: Trace pitting edema bilaterally, chronic skin changes consistent with chronic cold exposure, feet mildly malodorous General: Yes normal to inspection and Yes no pedal edema Psych: Appearance: grossly normal Affect: normal affect MDM - Alcohol MDM Narrative Medical decision making narrative: Patient with alcohol intoxication, difficult to fully evaluate initially due to intoxication. Patient will be observed in the ED until he is more sober. The patient does have chronic atrial fibrillation, his heart rate was 110 on his EKG. Metoprolol 50 mg p.o. has been ordered for the patient. Patient will be signed out to Dr. Rosenthal, at 16:44 Lab Data Labs: Lab Results 03/30/21 Range/Units 16:29 POC Glucose 204 H (60-115) mg/dL ECG Data ECG #1: ECG interpretation date: 03/30/21 ECG interpretation time: 16:20 Prior ECG tracings: available for review Interpretation: Atrial fibrillation with ventricular response of 110. Left axis deviation. Inferior Q-waves. Incomplete right bundle-branch block. EKG appears similar in morphology to 1 dated 12/01/2020 Discharge Plan Discharge Clinical Impression: Alcohol intoxication, Atrial fibrillation, chronic Prescriptions: No Action multivitamin Tablet 1 tab PO DAILY RF: 0 metoprolol tartrate 50 mg tablet 1 tab PO BID RF: 0 Lantus U-100 Insulin 100 unit/mL Solution 8 unit subcut DAILY Qty: 10 RF: 0 insulin lispro 100 unit/mL solution 5 unit subcut TID Qty: 10 RF: 0 atorvastatin 40 mg tablet 1 tab PO BEDTIME RF: 0 trazodone 50 mg tablet 1 tab PO BEDTIME PRN (Reason: Insomnia) RF: 0 gabapentin 400 mg capsule 1 cap PO TID RF: 0 metformin 1,000 mg tablet 1 tab PO BIDWM RF: 0 furosemide [Lasix] 40 mg tablet 40 mg PO BID 30 Days Qty: 60 RF: 0 aspirin 81 mg Tablet,Delayed Release (Dr/Ec) 81 mg PO DAILY Qty: 30 RF: 0 folic acid 1 mg Tablet 1 mg PO DAILY Qty: 30 RF: 0 thiamine mononitrate (vit B1) 100 mg Tablet 100 mg PO DAILY Qty: 30 RF: 0
--- NOTE | 2021-03-30 15:27 | ECG_ITS ---
Test Reason : tachy Blood Pressure : / mmHG Vent. Rate : 110 BPM Atrial Rate : 000 BPM P-R Int : 000 ms QRS Dur : 102 ms QT Int : 360 ms P-R-T Axes : 000 -83 071 degrees QTc Int : 487 ms Atrial fibrillation with rapid ventricular response Left axis deviation Low voltage QRS Incomplete right bundle branch block Inferior infarct (cited on or before 02-JUL-2016) Cannot rule out Anterior infarct (cited on or before 02-JUL-2016) Abnormal ECG When compared with ECG of 01-DEC-2020 08:35, Incomplete right bundle branch block is now Present Questionable change in initial forces of Inferior leads Referred By: Keith Boss Electronically Signed By:David Ernandez
[2021-03-30] MEDS: Metoprolol Tartrate 50 MG TABLET PO (16:00)
[2021-03-30 16:22] VITALS: BP 145/94; PULSE 113; RESP 20; TEMP 37.1; O2SAT 98
[2021-03-30 16:33] LABS: Glucose, Whole Blood 204 mg/dL (60-115)
--- NOTE | 2021-03-30 16:39 | PC.NURSE ---
PATIENT WAS INC ON URINE ,INC CARE WAS DONE BEDDING WAS CHANGE .
[2021-03-30 17:49] VITALS: BP 138/91; PULSE 91; RESP 15; TEMP 36.3; O2SAT 99
[2021-03-30 20:00] VITALS: PULSE 106; RESP 18; O2SAT 95
--- NOTE | 2021-03-30 21:17 | PC.NURSE ---
patient is awake and alert, eating and drinking. no distress noted, asking for po tylenol. nakita friend made aware awiting discharge orders
[2021-03-30] MEDS: Acetaminophen 325 MG TABLET 975 MG PO (21:48)
[2021-03-30 22:00] VITALS: RESP 16
--- NOTE | 2021-03-30 22:12 | PC.NURSE ---
TLKING WITH [facility] PATIENT RESIDES AT, PATIENT HAS BEEN MISSING FOR 4 TO 7 DAYS AFTER LEAVING THE FACILITY. STATING THAT THEY NEED TO CHECK WITH THE [facility] [employer] IF HE CAN BE ACCEPTED BACK. CONTACTING CASE MANAGEMENT JUANITO MARIA FOR ASSISTANCE WITH PATIENT PLACEMENT AND FACILITATING COMMUNICATION WITH THE [facility].
--- NOTE | 2021-03-30 22:32 | PC.NURSE ---
PATIENT ON THE PHONE WITH THE [facility], STATING HAVING MULTIPLE QUESTIONS FOR PATIENT ABOUT HIS WHERE ABOUTS FOR THE PAST SEVERAL DAYS. STATING WITH RECONTACT THE MEDICAL RECORDS LIBRARY PROFESSOR AND THEN CALL THE NURSE BACK WITH A PLAN OF CARE FOR PATIENT
--- NOTE | 2021-03-30 22:34 | MHC.CM.ED ---
Addendum entered by Dayanara Zaman 03/30/21 23:13: Pt spoke with [facility]. They will take him back. Per pt, he will wait in waiting room for [facility] to pick him up . Original Note: CM met with patient. interpreter for the deaf used as patient is [place]ican speaking. Pt admits to staying a [facility] in [place], but tells CM he just went there. States he took the bus to [place] and has been staying with a friend for maybe a week, not sure, but states he cannot stay with his friend, as he has housing. Pt aware that CM is awaiting a return telephone call to determine if [facility] will accept pt back tonight. CM will monitor for d/c needs.
--- NOTE | 2021-03-30 23:08 | PC.NURSE ---
Patient ambulated to the bathroom. Pt gait even, stable and steady. Pt back on stretcher No apparent distress Awaiting dispo back to residential home
== END 2021-03-30 23:47 | disposition home or self-care (01) ==
PROVIDERS: Emergency Medicine; Emergency Provider Emergency Medicine Emergency Medical Services
DX: F10.129 Alcohol abuse with intoxication, unspecified (principal); Y90.9 Presence of alcohol in blood, level not specified; I48.91 Unspecified atrial fibrillation; F17.200 Nicotine dependence, unspecified, uncomplicated; Z71.6 Tobacco abuse counseling; Z79.899 Other long term (current) drug therapy; Z71.41 Alcohol abuse counseling and surveillance of alcoholic
CPT/HCPCS: 82947; 93005; 99285

== ENCOUNTER 2021-04-02 21:20 | Emergency (ER) | payer MEDICARE, MEDICAID, SELFPAY ==
[2021-04-02 21:30] VITALS: BP 106/74; PULSE 95; RESP 16; TEMP 36.5; O2SAT 99; BMI 34.7
--- NOTE | 2021-04-02 22:14 | ED_ITS ---
HPI - Alcohol General Chief Complaint: ETOH/Substance Use Stated Complaint: etoh Time Seen by Provider: 04/02/21 22:12 History of Present Illness HPI narrative: Patient is a 60-year-old male positive ETOH. Patient denies any suicidal homicidal ideation. Previous history of COVID. Patient from home. Positive hip. Of drinking. Denies any suicidal homicidal ideation at this time. Patient refused answer detailed questions. Related Data Home Medications Medication Instructions Recorded Confirmed atorvastatin 40 mg tablet 1 tab PO BEDTIME 09/11/20 12/01/20 gabapentin 400 mg capsule 1 cap PO TID 09/11/20 12/01/20 metformin 1,000 mg tablet 1 tab PO BIDWM 09/11/20 12/01/20 trazodone 50 mg tablet 1 tab PO BEDTIME PRN 09/11/20 12/01/20 metoprolol tartrate 50 mg tablet 1 tab PO BID 11/16/20 12/01/20 multivitamin 1 tab PO DAILY 11/16/20 12/01/20 Previous Rx's Medication Instructions Recorded furosemide 40 mg tablet (Lasix) 40 mg PO BID 30 Days #60 tab 09/14/20 aspirin 81 mg tablet,delayed 81 mg PO DAILY #30 tab 11/04/20 release folic acid 1 mg tablet 1 mg PO DAILY #30 tab 11/04/20 thiamine mononitrate (vit B1) 100 100 mg PO DAILY #30 tab 11/04/20 mg tablet insulin glargine 100 unit/mL 8 unit (0.08 mL) SUBCUT DAILY #10 11/20/20 subcutaneous solution (Lantus ml U-100 Insulin) insulin lispro 100 unit/mL 5 unit (0.05 mL) SUBCUT TID #10 ml 12/02/20 subcutaneous solution Allergies Allergy/AdvReac Type Severity Reaction Status Date / Time Penicillins [PCN] Allergy Unknown UNKNOWN Verified 09/03/20 16:05 Review of Systems Review of Systems: Unable to obtain review systems secondary to patient's condition Yes all other systems are reviewed and are negative [facility] Past Medical History Attestation statement: The following information was validated with the patient. Medical History A-fib Acute on chronic combined systolic and diastolic congestive heart failure Alcohol use disorder, severe, dependence Alcoholic intoxication Atrial fibrillation, rapid CAD (coronary artery disease) Cardiomyopathy CHF (congestive heart failure) Cirrhosis Depression Diabetes ETOH abuse HTN (hypertension) Hyperglycemia Social History Social History Household Members: None Housing: Homeless Housing Other:: rents room Do you presently have visiting nurse or other home services: No Unable to assess alcohol history related to: Refusing to respond Alcohol intake: current Alcohol intake frequency: 3 or more drinks per day Alcohol type: beer and hard liquor Patient Tobacco Use Status: Current everyday Tobacco user Second Hand Smoke Exposure: No Advance Directives: No Advance Directives Information Provided: Yes service: No Current occupational status: unemployed and disabled Physical Exam Vital Signs: Vital Signs: Last Vital Signs Temp 97.7 F 04/02/21 21:30 Pulse 95 04/02/21 21:30 Resp 16 04/02/21 21:30 BP 106/74 04/02/21 21:30 Pulse Ox 99 04/02/21 21:30 BMI result Body Mass Index 34.7 Appearance: Alert. Oriented X3. No acute distress. Eyes: Pupils equal, round and reactive to light. ENT: Pharynx normal. Neck: Normal inspection. Neck supple. No lymph nodes noted. No crepitus CVS: Normal heart rate and rhythm. Pulses normal. Normal S1 and S2 Respiratory: No respiratory distress. Breath sounds normal. No Wheezing. No rales Abdomen: Soft and nontender. No rigidity. No distention. good BS x4 Skin: Skin warm and dry. Normal skin color. Normal skin turgor. Extremities: No lower extremity edema. Neurovascular intact to all extremities. No Lacerations. No Rash Neuro: Oriented X 3. No motor deficit. No sensory deficit. Moving all extermities. No slurred speech MDM - Alcohol MDM Narrative Medical decision making narrative: Well-appearing no distress. Awaiting labs. patient's potassium is 2.5. Has an anion gap. Likely secondary to AKA. Will give IV fluids will give food. Will repeat potassium. Will recheck electrolyt es once patient's repleted. Patient's alcohols over 200 Consistent with ETOH use. Medical Records Attestation: I reviewed the patient's medical records. Lab Data Attestation: I reviewed the patient's lab results. Result diagrams: 04/03/21 00:25 12/14/21 00:25 Labs: Lab Results 04/03/21 04/03/21 04/03/21 Range/Units 00:01 00:25 00:25 WBC 9.4 (4.8-10.8) X10*3/uL RBC 3.82 L (4.60-5.80) X10*6/uL Hgb 12.3 L (14.0-18.0) g/dl Hct 35.4 L (42.0-52.0) % MCV 92.7 (80.0-98.0) fL MCH 32.2 (27.0-33.0) pg MCHC 34.7 (31.0-36.0) g/dl RDW 13.4 (11.0-16.0) % Plt Count 120 L (160-400) X10*3/uL MPV 10.2 (9.4-12.4) fL Immature Gran % (Auto) 0.5 H (0.0-0.4) % Neut % (Auto) 69.5 (45-73) % Lymph % (Auto) 22.8 (20-40) % [place] % (Auto) 5.6 (2-11) % Eos % (Auto) 1.3 (0-4) % Baso % (Auto) 0.3 (0-2) % Lymph # (Auto) 2.2 (1.2-4.9) X10*3/uL [place] # (Auto) 0.5 (0.1-1.2) X10*3/uL Eos # (Auto) 0.1 (0.0-0.4) X10*3/uL Baso # (Auto) 0.0 (0.0-0.2) X10*3/uL Abs Immat Gran (auto) 0.05 H (0.00-0.03) X10*3/uL Absolute Neuts (auto) 6.5 (2.0-8.3) x10*3/uL Absolute Nucleated RBC 0.000 (0.0-0.012) X10*3/uL Nucleated RBC % (auto) 0.0 (0.0-0.2) /100WBC Sodium 135 (135-145) mmol/L Potassium 2.5 L* D (3.3-5.1) mmol/L Chloride 94 L (96-108) mmol/L Carbon Dioxide 22 (22-29) mmol/L Anion Gap 21 H (12-20) BUN 7 L (9-16) mg/dL Creatinine 0.71 (0.5-1.4) mg/dL Estim Creat Clear Calc 134.7 Estimated GFR > 60 Random Glucose 155 H D (60-115) mg/dL Calcium 9.3 (8.4-10.2) mg/dL Ethyl Alcohol mg/dL COVID-19 (CH[facility]STI) Negative (Negative) COVID-19 Clin Com See Note 04/03/21 Range/Units 00:25 WBC (4.8-10.8) X10*3/uL RBC (4.60-5.80) X10*6/uL Hgb (14.0-18.0) g/dl Hct (42.0-52.0) % MCV (80.0-98.0) fL MCH (27.0-33.0) pg MCHC (31.0-36.0) g/dl RDW (11.0-16.0) % Plt Count (160-400) X10*3/uL MPV (9.4-12.4) fL Immature Gran % (Auto) (0.0-0.4) % Neut % (Auto) (45-73) % Lymph % (Auto) (20-40) % [place] % (Auto) (2-11) % Eos % (Auto) (0-4) % Baso % (Auto) (0-2) % Lymph # (Auto) (1.2-4.9) X10*3/uL [place] # (Auto) (0.1-1.2) X10*3/uL Eos # (Auto) (0.0-0.4) X10*3/uL Baso # (Auto) (0.0-0.2) X10*3/uL Abs Immat Gran (auto) (0.00-0.03) X10*3/uL Absolute Neuts (auto) (2.0-8.3) x10*3/uL Absolute Nucleated RBC (0.0-0.012) X10*3/uL Nucleated RBC % (auto) (0.0-0.2) /100WBC Sodium (135-145) mmol/L Potassium (3.3-5.1) mmol/L Chloride (96-108) mmol/L Carbon Dioxide (22-29) mmol/L Anion Gap (12-20) BUN (9-16) mg/dL Creatinine (0.5-1.4) mg/dL Estim Creat Clear Calc Estimated GFR Random Glucose (60-115) mg/dL Calcium (8.4-10.2) mg/dL Ethyl Alcohol 232 mg/dL COVID-19 (CHRISTI) (Negative) COVID-19 Clin Com Discharge Plan Discharge Clinical Impression: Alcoholic intoxication, Alcoholic ketoacidosis, Acute hypokalemia Prescriptions: No Action multivitamin Tablet 1 tab PO DAILY RF: 0 metoprolol tartrate 50 mg tablet 1 tab PO BID RF: 0 Lantus U-100 Insulin 100 unit/mL Solution 8 unit subcut DAILY Qty: 10 RF: 0 insulin lispro 100 unit/mL solution 5 unit subcut TID Qty: 10 RF: 0 atorvastatin 40 mg tablet 1 tab PO BEDTIME RF: 0 trazodone 50 mg tablet 1 tab PO BEDTIME PRN (Reason: Insomnia) RF: 0 gabapentin 400 mg capsule 1 cap PO TID RF: 0 metformin 1,000 mg tablet 1 tab PO BIDWM RF: 0 furosemide [Lasix] 40 mg tablet 40 mg PO BID 30 Days Qty: 60 RF: 0 aspirin 81 mg Tablet,Delayed Release (Dr/Ec) 81 mg PO DAILY Qty: 30 RF: 0 folic acid 1 mg Tablet 1 mg PO DAILY Qty: 30 RF: 0 thiamine mononitrate (vit B1) 100 mg Tablet 100 mg PO DAILY Qty: 30 RF: 0
[2021-04-03 00:33] LABS: PLT CLUMP 1; SCAN SMEAR FLAG 1
[2021-04-03 00:35] LABS: Basophils Percent Auto 0.3 % (0-2); Eosinophils Absolute Auto 0.1 X10*3/uL (0.0-0.4); Eosinophils Percent Auto 1.3 % (0-4); Hematocrit 35.4 % (42.0-52.0); Hemoglobin 12.3 g/dl (14.0-18.0); Imm Gran Abs Auto 0.05 X10*3/uL (0.00-0.03); Imm Gran Pct Auto 0.5 % (0.0-0.4); Lymphocytes Absolute Auto 2.2 X10*3/uL (1.2-4.9); Lymphocytes Percent Auto 22.8 % (20-40); Mean Corpuscular HGB Conc 34.7 g/dl (31.0-36.0); Mean Corpuscular Hemoglobin 32.2 pg (27.0-33.0); Mean Corpuscular Volume 92.7 fL (80.0-98.0); Mean Platelet Volume 10.2 fL (9.4-12.4); Monocytes Absolute Auto 0.5 X10*3/uL (0.1-1.2); Monocytes Percent Auto 5.6 % (2-11); Neutrophils Absolute Auto 6.5 x10*3/uL (2.0-8.3); Neutrophils Percent Auto 69.5 % (45-73); Red Blood Count 3.82 X10*6/uL (4.60-5.80); Red Cell Distribution Width 13.4 % (11.0-16.0)
[2021-04-03 00:43] LABS: MANUAL DIFF FLAG NO; Platelet Count 120 X10*3/uL (160-400); White Blood Count 9.4 X10*3/uL (4.8-10.8)
[2021-04-03 00:49] LABS: COVID-19 Test Negative (Negative); IDNOW Serial# 9DD0AD1C
[2021-04-03 00:51] LABS: Ethanol 232 mg/dL
[2021-04-03 01:00] LABS: Anion Gap 21 (12-20); Blood Urea Nitrogen 7 mg/dL (9-16); Calcium 9.3 mg/dL (8.4-10.2); Carbon Dioxide 22 mmol/L (22-29); Chloride 94 mmol/L (96-108); Creatinine Clr Calc Pharmacy 134.7; Estimated Glomerular Filt Rate > 60; Glucose Random 155 mg/dL (60-115); Potassium 2.5 mmol/L (3.3-5.1); Sodium 135 mmol/L (135-145)
[2021-04-03] MEDS: Potassium Chloride Packet 20 MEQ PACKET 40 MEQ PO (01:49)
[2021-04-03] MEDS: 0.9 % Sodium Chloride 1,000 ML 999 ML IV ×2 (01:49→02:52)
[2021-04-03] MEDS: Potassium Chloride/H20 10 MEQ/100 ML PIGGYBACK 100 MEQ IV ×4 (01:49→05:27)
[2021-04-03 02:32] LABS: Amphetamine Screen Urine Not Detected (Not Detect); Barbiturates, Urine Not Detected (Not Detect); Benzodiazepines Screen Urine Not Detected (Not Detect); Cannabinoid Screen Urine Not Detected (Not Detect); Cocaine Screen Urine Not Detected (Not Detect); Fentanyl, urine Not Detected (Not Detect); Opiate Screen Urine Not Detected (Not Detect); Phencyclidine Screen Urine Not Detected (Not Detect)
[2021-04-03 03:00] LABS: Magnesium 1.2 mg/dL (1.6-2.6)
[2021-04-03 03:08] VITALS: BP 119/73; PULSE 94; RESP 20; TEMP 36.4; O2SAT 95
[2021-04-03 04:53] VITALS: BP 127/82; PULSE 98; RESP 16; O2SAT 96
--- NOTE | 2021-04-03 04:54 | PC.NURSE ---
I assumed care of this pt at 0300 from [facility]. The pt is sleeping, wakes to verbal stimuli but quickly falls back to sleep. Respirations appear non-labored, RR WNL, O2 sat's 95% or better on 2L nasal cannula. K-rider's infusing (#3 of 4 at this time), will follow with ordered Magnesium 2G IV at completion of 4th K-rider. Pt remains fully monitored on all bedside monitors, SR rate 90's without ectopy noted. There are mild tremors that can be felt but not seen, pt is mildly diaphoretic. There are no hallucinations. CIWA 2. Will continue to monitor.
[2021-04-03] MEDS: Magnesium Sulfate/H2O 2 GM/50 ML PIGGYBACK IV (05:48)
[2021-04-03 08:23] VITALS: BP 133/71; PULSE 109; RESP 21; TEMP 37.1; O2SAT 97
[2021-04-03 08:35] LABS: Anion Gap 17 (12-20); Blood Urea Nitrogen 5 mg/dL (9-16); Calcium 8.9 mg/dL (8.4-10.2); Carbon Dioxide 24 mmol/L (22-29); Chloride 102 mmol/L (96-108); Creatinine Clr Calc Pharmacy 147.2; Estimated Glomerular Filt Rate > 60; Glucose Random 161 mg/dL (60-115); Magnesium 1.5 mg/dL (1.6-2.6); Potassium 3.3 mmol/L (3.3-5.1); Sodium 140 mmol/L (135-145)
[2021-04-03 09:45] VITALS: BP 155/90; PULSE 88; RESP 19; O2SAT 97
== END 2021-04-03 09:47 | disposition home or self-care (01) ==
PROVIDERS: Emergency Medicine Emergency Medical Services; Emergency Provider Emergency Medicine
DX: F10.229 Alcohol dependence with intoxication, unspecified (principal); Y90.7 Blood alcohol level of 200-239 mg/100 ml; E87.2 Acidosis; E87.6 Hypokalemia; I11.0 Hypertensive heart disease with heart failure; I50.42 Chronic combined systolic (congestive) and diastolic (congestive) heart failure; E11.9 Type 2 diabetes mellitus without complications; I48.91 Unspecified atrial fibrillation; Z20.822 Contact with and (suspected) exposure to COVID-19
CPT/HCPCS: 36415; 80048; 80307; 82077; 83735; 85025; 87635; 96365; 96366; 96375; 99284; J3475

== ENCOUNTER 2021-04-04 02:00 | Emergency (ER) | payer MEDICARE, MEDICAID, SELFPAY ==
[2021-04-04 06:04] LABS: Anion Gap 20 (12-20); Blood Urea Nitrogen 8 mg/dL (9-16); Calcium 9.4 mg/dL (8.4-10.2); Carbon Dioxide 21 mmol/L (22-29); Chloride 106 mmol/L (96-108); Estimated Glomerular Filt Rate > 60; Glucose Random 185 mg/dL (60-115); Potassium 3.1 mmol/L (3.3-5.1); Sodium 144 mmol/L (135-145)
--- NOTE | 2021-04-04 07:46 | PC.NURSE ---
pt is currently asleep, respirations even and unlabored vs stable, bp 144/78, hr 109, sating at 97% on room air, lower extremities reddened in color but denies pain at this time pt reports being homeless and it was cold outside and had nowhere to stay, also reports having difficulty walking do to his neuropathy but would like to go back to the streets. bio medical technician at bedside
[2021-04-04 09:59] LABS: Glucose, Whole Blood 171 mg/dL (60-115)
== END 2021-04-04 07:55 | disposition home or self-care (01) ==
LOC: HO.ED 05:41
PROVIDERS: Emergency Provider Student in an Organized Health Care Education/Training Program; PCP Family Medicine
DX: R20.8 Other disturbances of skin sensation (principal); M79.606 Pain in leg, unspecified; R40.0 Somnolence; Z72.89 Other problems related to lifestyle
CPT/HCPCS: 36415; 80048; 82947; 99281; 99283

== ENCOUNTER 2021-04-06 13:13 | Emergency (ER) | payer MEDICARE, MEDICAID, SELFPAY ==
--- NOTE | ~2021-04-06 | XR_ITS ---
EXAMINATION: XR CHEST CLINICAL INFORMATION: Productive cough COMPARISON: Previous chest x-rays most recent November [address] October 2020 TECHNIQUE: Frontal view of the chest was obtained. FINDINGS: The cardiac silhouette is enlarged but stable. Hilar and mediastinal contours are unremarkable. There are still increased interstitial markings and increased attenuation seen in the lungs. This is similar to previous exams. No new areas of airspace disease. There is no pleural effusion or pneumothorax. There are degenerative changes of the spine. XR/XR chest 1V IMPRESSION: Stable enlargement of the cardiac silhouette. Stable increased interstitial markings and increased attenuation in the lungs from prior exams from October and November 2020. No new airspace disease to suggest lobar pneumonia.
--- NOTE | 2021-04-06 13:22 | ECG_ITS ---
Test Reason : PALPITATIONS Blood Pressure : / mmHG Vent. Rate : 105 BPM Atrial Rate : 000 BPM P-R Int : 000 ms QRS Dur : 100 ms QT Int : 358 ms P-R-T Axes : 000 -69 069 degrees QTc Int : 473 ms Atrial fibrillation with rapid ventricular response Left axis deviation Inferior infarct (cited on or before 02-JUL-2016) Anterior infarct (cited on or before 02-JUL-2016) Abnormal ECG When compared with ECG of 30-MAR-2021 15:39, Incomplete right bundle branch block is no longer Present Referred By: Kimberly Atkins Electronically Signed By:COLIN LLAMAS MD
--- NOTE | 2021-04-06 13:22 | ED_ITS ---
HPI - Alcohol General Chief Complaint: ETOH/Substance Use Stated Complaint: ETOH Time Seen by Provider: 04/06/21 13:21 Source: patient Mode of arrival: EMS Limitations: no limitations History of Present Illness HPI narrative: 60-year-old male past medical history significant for atrial fibrillation, diabetes, hypertension, coronary artery disease, cirrhosis, alcohol withdrawal syndrome, alcohol abuse and dependence presents to the emergency department via ambulance he was found at a bus stop and was unable to walk due to alcohol intoxication, a construction services technician called 911. Patient is not answering any of my questions. Patient smells like alcohol. He tells me I drink beer . No evidence signs of trauma. MD complaint: alcohol intoxication and alcohol dependence Last drink: Unknown (likely prior to arrival ) Previous visits for alcohol intoxication: Yes Recent trauma: No Associated symptoms: denies other symptoms Treatments prior to arrival: none Related Data Home Medications Medication Instructions Recorded Confirmed atorvastatin 40 mg tablet 1 tab PO BEDTIME 09/11/20 12/01/20 gabapentin 400 mg capsule 1 cap PO TID 09/11/20 12/01/20 metformin 1,000 mg tablet 1 tab PO BIDWM 09/11/20 12/01/20 trazodone 50 mg tablet 1 tab PO BEDTIME PRN 09/11/20 12/01/20 metoprolol tartrate 50 mg tablet 1 tab PO BID 11/16/20 12/01/20 multivitamin 1 tab PO DAILY 11/16/20 12/01/20 Previous Rx's Medication Instructions Recorded furosemide 40 mg tablet (Lasix) 40 mg PO BID 30 Days #60 tab 09/14/20 aspirin 81 mg tablet,delayed 81 mg PO DAILY #30 tab 11/04/20 release folic acid 1 mg tablet 1 mg PO DAILY #30 tab 11/04/20 thiamine mononitrate (vit B1) 100 100 mg PO DAILY #30 tab 11/04/20 mg tablet insulin glargine 100 unit/mL 8 unit (0.08 mL) SUBCUT DAILY #10 11/20/20 subcutaneous solution (Lantus ml U-100 Insulin) insulin lispro 100 unit/mL 5 unit (0.05 mL) SUBCUT TID #10 ml 12/02/20 subcutaneous solution Allergies Allergy/AdvReac Type Severity Reaction Status Date / Time Penicillins [PCN] Allergy Unknown UNKNOWN Verified 09/03/20 16:05 Review of Systems Review of Systems: Patient unable to answer review of systems due to intoxication however, he is noted to have a cough fever Yes Unobtainable due to mental status (Patient is acutely intoxicated) [facility] Past Medical History Attestation statement: The following information was validated with the patient. Source: old records reviewed and nursing notes reviewed Medical History A-fib Acute on chronic combined systolic and diastolic congestive heart failure Alcohol use disorder, severe, dependence Alcoholic intoxication Atrial fibrillation, rapid CAD (coronary artery disease) Cardiomyopathy CHF (congestive heart failure) Cirrhosis Depression Diabetes ETOH abuse HTN (hypertension) Hyperglycemia Social History Social History Household Members: None Housing: Homeless Housing Other:: rents room Do you presently have visiting nurse or other home services: No Unable to assess alcohol history related to: Refusing to respond Alcohol intake: current Alcohol intake frequency: 3 or more drinks per day Alcohol type: beer and hard liquor Patient Tobacco Use Status: Current everyday Tobacco user Second Hand Smoke Exposure: No Advance Directives: No Advance Directives Information Provided: Yes service: No Current occupational status: unemployed and disabled Physical Exam Vital Signs: Vital Signs: Last Vital Signs Temp 98.3 F 04/06/21 15:56 Pulse 98 04/06/21 20:43 Resp 16 04/06/21 20:43 BP 159/82 H 04/06/21 20:43 Pulse Ox 97 04/06/21 20:43 BMI result Body Mass Index 40.2 VSS Appearance: Alert to verbal stimuli. Wet cough throughout examination. No evidence of trauma. No acute distress.? Head: Normocephalic, atraumatic, no step-offs or deformities Eyes: Pupils equal, round and reactive to light.? ENT: Pharynx normal.? Neck: Normal inspection.? Neck supple.? CVS: Normal heart rate and rhythm.? Pulses normal.? Respiratory: No respiratory distress.? There is wheezing and crackles noted to bilateral lower lobes. Abdomen: Soft and nontender.? Skin: Skin warm and dry.? Normal skin color.? Normal skin turgor.? Extremities: No lower extremity edema.? No calf ttp. 5/5 strength to bilateral upper and lower extremities Back: No midline tenderness, no C-spine tenderness, full range of motion, no CVA tenderness bilaterally Neuro: Alert to verbal stimuli. No motor deficit.? No sensory deficit. Course Reevaluation(s) Reevaluation #1: CXR shows stable enlargement of the cardiac silhouette when compared to previous imaging. There is also increased interstitial markings and increased attenuation in the lung. No new airspace disease or consolidations. Laboratory study show no leukocytosis, a baseline anemia is noted. Potassium is noted to be low at 3.2, it appears as though patient's baseline is on the lower side, I will give him 40 meq oral potassium. Random glucose at 280, patient will be given fluids. AST noted to be 40 for an elevated, likely secondary to alcohol abuse. COVID neagative. Patient will be given his home BP med metoprolol Ethanol 296. Time: 15:44 Reevaluation #2: Patient tells recovery advocate Hernesto that he is residing at [facility] in [facility], he is going to call and see if patient still has a bed at this facility. Patient tells me he is residing at a friend's house. He is walking around the unit with no difficulty. Feeling well, no complaints. Patient is eating and dr inking well. I feel comfortable with discharge home. Patient does not want detox or any resources. He has spoken to the recovery advocate multiple times, and he is not interested in detox. He is not having any acute findings of acute alcohol withdrawal. Vital signs stable comfortable with discharge home Time: 20:30 Reevaluation #3: Patient is now sober, he tells me he fell asleep, he did not hit his head, he did not fall he was sitting down when EMS found him. Patient tells me nothing hurts. He will be discharged home to his friend's house. Time: 20:37 MDM - Alcohol MDM Narrative Medical decision making narrative: 1324 60 YO M pmhx a-fib, HTN, CAD, ETHO abuse and dependence w/ hx of withdraw, diabetes, cirrhosis presents to the ED via ambulance with acute alcohol intoxication, he was found sleeping on a bus station and a construction services technician nearby called 911. EMS states he is unable to ambulate. Patient is not able to answer questions, he keeps falling asleep during my examination and history taking. However, he is noted to have a low productive cough. No signs of trauma, patient tells me he drinks beer. States he did not fall. Upon physical examination patient appears well, no acute distress, no evidence of trauma. He is coughing with a wet productive cough throughout my exam. He is alert to verbal stimuli. Bilateral lungs with crackles, and wheezing. Regular rate and rhythm. Abdomen soft nontender nondistended. Pupils equal round and reactive to light, head normocephalic, atraumatic no step-offs or deformities. No midline tenderness, no C-spine tenderness. No focal neuro deficits. Plan at this time is to obtain basic labs, COVID, chest x-ray, ethanol, UA, EKG. Medical Records Attestation: I reviewed the patient's medical records. Lab Data Attestation: I reviewed the patient's lab results. Result diagrams: 04/06/21 14:04 04/06/21 14:04 Labs: Lab Results 04/06/21 04/06/21 04/06/21 Range/Units 14:04 14:04 14:04 WBC 10.5 (4.8-10.8) X10*3/uL RBC 3.50 L (4.60-5.80) X10*6/uL Hgb 11.3 L (14.0-18.0) g/dl Hct 33.4 L (42.0-52.0) % MCV 95.4 (80.0-98.0) fL MCH 32.3 (27.0-33.0) pg MCHC 33.8 (31.0-36.0) g/dl RDW 14.3 (11.0-16.0) % Plt Count 99 L (160-400) X10*3/uL MPV 10.0 (9.4-12.4) fL Immature Gran % (Auto) 0.8 H (0.0-0.4) % Neut % (Auto) 78.7 H (45-73) % Lymph % (Auto) 11.5 L (20-40) % [place] % (Auto) 8.2 (2-11) % Eos % (Auto) 0.4 (0-4) % Baso % (Auto) 0.4 (0-2) % Lymph # (Auto) 1.2 (1.2-4.9) X10*3/uL [place] # (Auto) 0.9 (0.1-1.2) X10*3/uL Eos # (Auto) 0.0 (0.0-0.4) X10*3/uL Baso # (Auto) 0.0 (0.0-0.2) X10*3/uL Abs Immat Gran (auto) 0.08 H (0.00-0.03) X10*3/uL Absolute Neuts (auto) 8.3 (2.0-8.3) x10*3/uL Absolute Nucleated RBC 0.000 (0.0-0.012) X10*3/uL Nucleated RBC % (auto) 0.0 (0.0-0.2) /100WBC Sodium 136 (135-145) mmol/L Potassium 3.2 L (3.3-5.1) mmol/L Chloride 100 (96-108) mmol/L Carbon Dioxide 21 L (22-29) mmol/L Anion Gap 18 (12-20) BUN 8 L (9-16) mg/dL Creatinine 0.74 (0.5-1.4) mg/dL Estim Creat Clear Calc 135.3 Estimated GFR > 60 Random Glucose 280 H D (60-115) mg/dL Calcium 8.6 D (8.4-10.2) mg/dL Magnesium 1.7 (1.6-2.6) mg/dL Total Bilirubin 0.8 (0.0-1.0) mg/dL AST 44 H D (5-37) U/L ALT 36 (0-40) U/L Alkaline Phosphatase 97 D (39-117) U/L Total Protein 7.0 (6.5-8.0) g/dL Albumin 3.6 (3.5-5.0) g/dL Urine Color Urine Appearance Urine pH (5.0-8.0) Ur Specific [place] (1.005-1.025) Urine Protein (NEG-TRACE) MG/DL Urine Glucose (UA) (NEG) MG/DL Urine Ketones (NEG) MG/DL Urine Blood (NEG) Urine Nitrite (NEG) Ur Leukocyte Esterase (NEG) Urine RBC (0) /HPF Urine WBC (0-4) /HPF Ur Squamous Epith Cells /LPF Urine Bacteria /LPF Ethyl Alcohol mg/dL COVID-19 (CHRISTI) Negative (Negative) COVID-19 Clin Com See Note 04/06/21 04/06/21 Range/Units 14:04 19:03 WBC (4.8-10.8) X10*3/uL RBC (4.60-5.80) X10*6/uL Hgb (14.0-18.0) g/dl Hct (42.0-52.0) % MCV (80.0-98.0) fL MCH (27.0-33.0) pg MCHC (31.0-36.0) g/dl RDW (11.0-16.0) % Plt Count (160-400) X10*3/uL MPV (9.4-12.4) fL Immature Gran % (Auto) (0.0-0.4) % Neut % (Auto) (45-73) % Lymph % (Auto) (20-40) % [place] % (Auto) (2-11) % Eos % (Auto) (0-4) % Baso % (Auto) (0-2) % Lymph # (Auto) (1.2-4.9) X10*3/uL [place] # (Auto) (0.1-1.2) X10*3/uL Eos # (Auto) (0.0-0.4) X10*3/uL Baso # (Auto) (0.0-0.2) X10*3/uL Abs Immat Gran (auto) (0.00-0.03) X10*3/uL Absolute Neuts (auto) (2.0-8.3) x10*3/uL Absolute Nucleated RBC (0.0-0.012) X10*3/uL Nucleated RBC % (auto) (0.0-0.2) /100WBC Sodium (135-145) mmol/L Potassium (3.3-5.1) mmol/L Chloride (96-108) mmol/L Carbon Dioxide (22-29) mmol/L Anion Gap (12-20) BUN (9-16) mg/dL Creatinine (0.5-1.4) mg/dL Estim Creat Clear Calc Estimated GFR Random Glucose (60-115) mg/dL Calcium (8.4-10.2) mg/dL Magnesium (1.6-2.6) mg/dL Total Bilirubin (0.0-1.0) mg/dL AST (5-37) U/L ALT (0-40) U/L Alkaline Phosphatase (39-117) U/L Total Protein (6.5-8.0) g/dL Albumin (3.5-5.0) g/dL Urine Color YELLOW Urine Appearance CLEAR Urine pH 5.5 (5.0-8.0) Ur Specific [place] <= 1.005 (1.005-1.025) Urine Protein 1+ H (NEG-TRACE) MG/DL Urine Glucose (UA) >=1000 H (NEG) MG/DL Urine Ketones NEG (NEG) MG/DL Urine Blood 1+ H (NEG) Urine Nitrite NEG (NEG) Ur Leukocyte Esterase NEG (NEG) Urine RBC 0 (0) /HPF Urine WBC 0 (0-4) /HPF Ur Squamous Epith Cells NONE /LPF Urine Bacteria TRACE /LPF Ethyl Alcohol 296 mg/dL COVID-19 (CHRISTI) (Negative) COVID-19 Clin Com Imaging Data Chest x-ray: Attestation: I personally reviewed and interpreted this imaging study as follows: Radiologist's impression: XR/XR chest 1V IMPRESSION: Stable enlargement of the cardiac silhouette. Stable increased interstitial markings and increased attenuation in the lungs from prior exams from October and November 2020. No new airspace disease to suggest lobar pneumonia. ? ECG Data ECG #1: Attestation: I personally reviewed and interpreted this ECG as follows: ECG interpretation date: 04/06/21 ECG interpretation time: 14:05 Prior ECG tracings: available for review Interpretation: Ventricular rate of 105, QRS normal, QTC normal. EKG shows atrial fibrillation with rapid ventricular response, left axis deviation. No ST elevations or inversions, no acute ischemia. No acute changes when compared with EKG from March 30, 2021. Critical Care Time Critical Care Time Critical Care Time: No Discharge Plan Discharge Clinical Impression: Alcoholic intoxication Patient Disposition: Home, Self-Care Instructions: Alcohol Intoxication (ED), Abuse of Alcohol (ED) Additional Instructions: Take your medications as prescribed. If you were prescribed antibiotics today, it is important that you take your medication to their entirety, do not skip any doses, do not finish them early. You refused resources from us such as detox and speaking to someone about alcohol abuse. Follow-up with your primary care provider this week. Return to the emergency department with new or worsening symptoms. In case of emergency call 911 Prescriptions: No Action multivitamin Tablet 1 tab PO DAILY RF: 0 metoprolol tartrate 50 mg tablet 1 tab PO BID RF: 0 Lantus U-100 Insulin 100 unit/mL Solution 8 unit subcut DAILY Qty: 10 RF: 0 insulin lispro 100 unit/mL solution 5 unit subcut TID Qty: 10 RF: 0 atorvastatin 40 mg tablet 1 tab PO BEDTIME RF: 0 trazodone 50 mg tablet 1 tab PO BEDTIME PRN (Reason: Insomnia) RF: 0 gabapentin 400 mg capsule 1 cap PO TID RF: 0 metformin 1,000 mg tablet 1 tab PO BIDWM RF: 0 furosemide [Lasix] 40 mg tablet 40 mg PO BID 30 Days Qty: 60 RF: 0 aspirin 81 mg Tablet,Delayed Release (Dr/Ec) 81 mg PO DAILY Qty: 30 RF: 0 folic acid 1 mg Tablet 1 mg PO DAILY Qty: 30 RF: 0 thiamine mononitrate (vit B1) 100 mg Tablet 100 mg PO DAILY Qty: 30 RF: 0 Referrals: Vikki Torrez MD [Primary Care Provider] - 2 days Stand Alone Forms: Work/School Release
[2021-04-06 13:35] VITALS: BP 145/73; BP 151/95; PULSE 110; PULSE 98; RESP 16; TEMP 36.7; O2SAT 95; BMI 40.2
[2021-04-06 14:11] LABS: MANUAL DIFF FLAG NO
[2021-04-06 14:14] LABS: Basophils Percent Auto 0.4 % (0-2); Eosinophils Percent Auto 0.4 % (0-4); Hematocrit 33.4 % (42.0-52.0); Hemoglobin 11.3 g/dl (14.0-18.0); Imm Gran Abs Auto 0.08 X10*3/uL (0.00-0.03); Imm Gran Pct Auto 0.8 % (0.0-0.4); Lymphocytes Absolute Auto 1.2 X10*3/uL (1.2-4.9); Lymphocytes Percent Auto 11.5 % (20-40); Mean Corpuscular HGB Conc 33.8 g/dl (31.0-36.0); Mean Corpuscular Hemoglobin 32.3 pg (27.0-33.0); Mean Corpuscular Volume 95.4 fL (80.0-98.0); Monocytes Absolute Auto 0.9 X10*3/uL (0.1-1.2); Monocytes Percent Auto 8.2 % (2-11); Neutrophils Absolute Auto 8.3 x10*3/uL (2.0-8.3); Neutrophils Percent Auto 78.7 % (45-73); Red Cell Distribution Width 14.3 % (11.0-16.0); White Blood Count 10.5 X10*3/uL (4.8-10.8)
[2021-04-06 14:15] LABS: Platelet Count 99 X10*3/uL (160-400)
[2021-04-06 14:24] LABS: Ethanol 296 mg/dL
[2021-04-06 14:30] LABS: COVID-19 Test Negative (Negative); IDNOW Serial# 9DD0AD1C
[2021-04-06 14:31] LABS: Alanine Aminotransferase 36 U/L (0-40); Albumin Level 3.6 g/dL (3.5-5.0); Alkaline Phosphatase 97 U/L (39-117); Anion Gap 18 (12-20); Aspartate Amino Transferase 44 U/L (5-37); Bilirubin Total 0.8 mg/dL (0.0-1.0); Blood Urea Nitrogen 8 mg/dL (9-16); Calcium 8.6 mg/dL (8.4-10.2); Carbon Dioxide 21 mmol/L (22-29); Chloride 100 mmol/L (96-108); Creatinine Clr Calc Pharmacy 135.3; Estimated Glomerular Filt Rate > 60; Glucose Random 280 mg/dL (60-115); Magnesium 1.7 mg/dL (1.6-2.6); Potassium 3.2 mmol/L (3.3-5.1); Sodium 136 mmol/L (135-145)
[2021-04-06] MEDS: 0.9 % Sodium Chloride 1,000 ML 999 ML IV (14:41)
[2021-04-06 14:43] VITALS: BP 145/73; PULSE 110
[2021-04-06] MEDS: Metoprolol Tartrate 50 MG TABLET PO (14:43)
[2021-04-06] MEDS: Potassium Chloride ER 20 MEQ TAB.ER.PRT 40 MEQ PO (15:55)
[2021-04-06 15:56] VITALS: BP 144/92; PULSE 107; RESP 18; TEMP 36.8; O2SAT 95
--- NOTE | 2021-04-06 17:15 | MHC.RECOVSUP ---
Met with Pt. Pt. states he has been drinking for a very long time. States that he doesn't remember how he got to the ED.He live3s in [facility] [place] Will follow up with Pt. later when I find out where he's going.
[2021-04-06 18:57] VITALS: BP 139/87; PULSE 109; RESP 18; O2SAT 96
--- NOTE | 2021-04-06 19:03 | MHC.RECOVSUP ---
Pt. does not want malaika go to treatment at this time made arrangements for him to Lyft to [address] [place] [address] [place] Also gave information and resources to Pt.
[2021-04-06 19:10] LABS: Appearance Urine CLEAR; Color Urine YELLOW; Glucose Urine UA >=1000 MG/DL (NEG); Leukocyte Esterase Urine NEG (NEG); Nitrite Urine NEG (NEG); PH 5.5 (5.0-8.0); Specific Gravity - Urine <= 1.005 (1.005-1.025); UACC Culture Trigger NO; Urine Blood 1+ (NEG); Urine Ketones NEG (NEG); Urine Protein 1+ MG/DL (NEG-TRACE)
--- NOTE | 2021-04-06 19:14 | PC.NURSE ---
this nurse walked into room to take vitals on pt and noticed an unopened Metoprolol 50mg on bedside cart. medication was documented as given at 1442 by morning nurse. this nurse informed provider that medication was found unopened and asked if it should still be administered. provider states to still give medication.
[2021-04-06 19:21] LABS: Bacteria Urine TRACE /LPF; RBC Urine 0 /HPF (0); WBC Urine 0 /HPF (0-4)
--- NOTE | 2021-04-06 20:26 | PC.NURSE ---
this nurse ambulated pt at providers request. pt ambulates with steady gait, denies any dizziness or lightheadedness. when asked if he feels intoxicated pt states that he does not. provider notified
[2021-04-06 20:43] VITALS: BP 159/82; PULSE 98; RESP 16; O2SAT 97
== END 2021-04-06 21:00 | disposition home or self-care (01) ==
PROVIDERS: Physician Assistant; Emergency Provider Emergency Medicine; PCP Family Medicine
DX: F10.129 Alcohol abuse with intoxication, unspecified (principal); Y90.8 Blood alcohol level of 240 mg/100 ml or more; I25.10 Atherosclerotic heart disease of native coronary artery without angina pectoris; E11.9 Type 2 diabetes mellitus without complications; I48.91 Unspecified atrial fibrillation; Z79.01 Long term (current) use of anticoagulants; R05.9 Cough, unspecified; Z79.899 Other long term (current) drug therapy; Z79.4 Long term (current) use of insulin
CPT/HCPCS: 36415; 71045; 80053; 81001; 82077; 83735; 85025; 87635; 93005; 96360; 99284; 99285

== ENCOUNTER 2021-04-08 16:03 | Inpatient (IN) | payer MEDICARE, MEDICAID, SELFPAY ==
[2021-04-08] VITALS (8 sets, daily range): BP systolic 155–180; BP diastolic 80–107; PULSE 101–132; RESP 20–48; TEMP 36.2–37.3; O2SAT 96–99; BMI 37.8
--- NOTE | ~2021-04-08 | CT_ITS ---
EXAMINATION: CT ANGIOGRAM OF THE CHEST WITH AND WITHOUT CONTRAST (CT PULMONARY ANGIOGRAM FOR PE) CLINICAL INFORMATION: Reason for Exam dyspnea, elevated ddimer COMPARISON: CT chest dated from 11/16/2020. TECHNIQUE: Prior to contrast administration, noncontrast localization images were obtained. Subsequently, multidetector volumetric imaging was performed from the thoracic inlet to below the diaphragms following the administration of 80 mL Omnipaque 350 intravenous contrast. No contrast reaction reported Sagittal, coronal, and MIP oblique sagittal reformatted images were obtained on the CT workstation, uploaded to PACS, and reviewed. This CT examination was performed using dose optimization techniques as appropriate, variously including the following: *Automated exposure control *Adjustment of mA and/or kV according to patient size (this includes techniques or standardized protocols for targeted exams where dose is matched to indication/reason for exam; i.e. extremities or head) *Use of iterative reconstruction technique Total exam dose-length product 534 mGy-cm FINDINGS: QUALITY OF STUDY/CONTRAST BOLUS: Suboptimal. PULMONARY ARTERIES: Evaluation is somewhat limited by motion and overlying airspace opacities. However, accounting for these limitations, there is no evidence of segmental or subsegmental pulmonary emboli. The main pulmonary artery measures up to 4.1 cm suggesting pulmonary hypertension in the appropriate clinical context. THORACIC AORTA: No aneurysm or dissection. Atherosclerotic disease. LUNG: Increased right greater than left pleural effusions and worsening bronchial wall thickening. Decrease patchy airspace opacities in the right upper lobe and right middle lobe but increased patchy airspace opacities in the left lower lobe. The central airways are patent. PLEURA: As above increased pleural effusions. No pneumothorax. MEDIASTINUM: Cardiomegaly with trace amount of pericardial fluid. Coronary calcifications. Prominent mediastinal and hilar lymph nodes are stable. Gynecomastia. Normal appearance of the thyroid gland. No evidence of septal bowing or right heart strain. CHEST WALL/AXILLA: No axillary or internal mammary lymphadenopathy. OSSEOUS STRUCTURES: No acute or suspicious osseous abnormality. UPPER ABDOMEN: Again noted findings suspicious for liver cirrhosis. No reflux of contrast into the hepatic veins to suggest elevated right heart pressures. CT/CT angio chest PE protocol IMPRESSION: Examination of the pulmonary arteries is degraded by motion and overlying airspace opacities. However, accounting for these limitations, no discrete pulmonary embolus is identified. No evidence of increased right-sided heart pressures. New patchy airspace opacities in the left lower lobe with improved patchy airspace opacities in the right lung. Increase pleural effusions and septal thickening bilaterally suggesting volume overload. Cardiomegaly. Suspect cirrhotic morphology of the liver. VTE: negative
--- NOTE | ~2021-04-08 | US_ITS ---
EXAMINATION: US VENOUS ULTRASOUND WITH DOPPLER LOWER EXTREMITY, BILATERAL CLINICAL INFORMATION: Swelling. Pain. COMPARISON: Previous exam July 2020 TECHNIQUE: Ultrasound of the deep veins is performed from the hip to the calf with compression sonography and color and pulse Doppler assessment. Spectral analysis with color-flow imaging is performed. FINDINGS: RIGHT: There is normal venous compression and respiratory variation and augmented flow. The visualized common femoral vein, superficial femoral vein, profunda femoral vein, popliteal vein, and posterior tibial veins shows no evidence of deep venous thrombosis. The peroneal veins are not seen. The right posterior tibial artery appears occluded. There is no significant popliteal fossa cyst. LEFT: There is normal venous compression and respiratory variation and augmented flow. The visualized common femoral vein, superficial femoral vein, profunda femoral vein, popliteal vein, and the posterior tibial veins shows no evidence of deep venous thrombosis. The peroneal veins are not seen. There is no significant popliteal fossa cyst. There are bilateral varicosities. US/US venous duplex LE BI IMPRESSION: No DVT demonstrated in the bilateral lower extremity. The bilateral peroneal veins are not identified. There are bilateral calf varicosities. The right posterior tibial artery appears occluded.
--- NOTE | ~2021-04-08 | XR_ITS ---
EXAMINATION: XR CHEST CLINICAL INFORMATION: Shortness of breath. COMPARISON: Chest radiograph dated from 04/06/2021. TECHNIQUE: 2 views of the chest were obtained. FINDINGS: Unchanged prominence of the cardiomediastinal silhouette. Increased interstitial opacities and size of a still small right pleural effusion. Redemonstration of mild asymmetric elevation of the right hemidiaphragm, best appreciated on the lateral view. No pneumothorax. No acute osseous findings. XR/XR chest 2V IMPRESSION: Worsening pulmonary aeration with increased interstitial opacities and size of a right pleural effusion. Findings are indeterminate and could represent pulmonary edema or an atypical infection in the appropriate clinical setting.
--- NOTE | 2021-04-08 16:15 | ED.LOWEXIN ---
HPI - Extremity Injury (Lower) General Chief Complaint: Dyspnea Stated Complaint: LEG PAIN Time Seen by Provider: 04/08/21 16:09 Source: patient Mode of arrival: EMS Limitations: no limitations History of Present Illness HPI Narrative: 60-year-old male presents for bilateral lower extremity pain for the last 2 years, dyspnea, cough, chest pain, body aches, fever/chills, and request for help detoxing from alcohol. Patient has a past medical history of alcohol abuse and withdrawal, cirrhosis, coronary artery disease, hypertension, diabetes, hypomagnesemia, atrial fibrillation, congestive heart failure, cardiomyopathy. Patient is homeless and was staying in a fdc in [place], which he left 1 week ago. He has been staying with a friend but can no longer stay there. He has also been staying outside in the cold. He has been drinking for the last 5 days, he drinks more than 15 drinks a day. States he has not been taking his medications. Patient states he has had a cough for several days, with chills and fevers. States the cough is productive and he is coughing up globs of phlegm. States he feels short of breath, and has dyspnea on exertion. States he had diarrhea today. He has back pain. Related Data Home Medications Medication Instructions Recorded Confirmed atorvastatin 40 mg tablet 1 tab PO BEDTIME 09/11/20 04/08/21 gabapentin 400 mg capsule 1 cap PO TID 09/11/20 04/08/21 metformin 1,000 mg tablet 1 tab PO BIDWM 09/11/20 04/08/21 trazodone 50 mg tablet 1 tab PO BEDTIME PRN 09/11/20 04/08/21 metoprolol tartrate 50 mg tablet 1 tab PO BID 11/16/20 04/08/21 multivitamin 1 tab PO DAILY 11/16/20 04/08/21 Previous Rx's Medication Instructions Recorded furosemide 40 mg tablet (Lasix) 40 mg PO BID 30 Days #60 tab 09/14/20 aspirin 81 mg tablet,delayed 81 mg PO DAILY #30 tab 11/04/20 release folic acid 1 mg tablet 1 mg PO DAILY #30 tab 11/04/20 thiamine mononitrate (vit B1) 100 100 mg PO DAILY #30 tab 11/04/20 mg tablet insulin glargine 100 unit/mL 8 unit (0.08 mL) SUBCUT DAILY #10 11/20/20 subcutaneous solution (Lantus ml U-100 Insulin) insulin lispro 100 unit/mL 5 unit (0.05 mL) SUBCUT TID #10 ml 12/02/20 subcutaneous solution Allergies Allergy/AdvReac Type Severity Reaction Status Date / Time Penicillins [PCN] Allergy Unknown UNKNOWN Verified 04/08/21 16:26 Review of Systems Constitutional: Constitutional: Reports body ache(s), Reports chills, Reports fatigue, Reports fever(s) and Reports headache(s) Eyes: Eyes: Denies blurry vision and Denies change in vision ENT: Denies vertigo, Denies dizziness, Denies otalgia, Denies facial pain, Reports headache(s), Denies neck pain, Denies sore throat and Denies throat swelling Cardiovascular: Cardiovascular: Reports chest pain, Reports chest pain at rest, Reports leg edema, Reports dyspnea and Reports dyspnea on exertion Respiratory: Respiratory: Reports change in phlegm color, Reports chest congestion, Reports cough, Denies hemoptysis, Reports excessive phlegm production, Reports dyspnea, Reports dyspnea on exertion and Reports wheezing Gastrointestinal: Gastrointestinal: Denies abdominal pain, Denies melena, Denies hematochezia, Reports diarrhea, Denies nausea and Denies vomiting Genitourinary: Genitourinary: Denies hematuria, Denies dysuria, Denies flank pain and Reports urinary incontinence Musculoskeletal: Musculoskeletal: Reports back pain, Reports myalgias, Denies neck pain, Reports numbness and Reports tingling Integumentary/Breasts: Skin/Breast: Reports erythema Neurologic: Denies Abnormal speech present, Denies confusion, Denies vertigo, Denies dizziness, Reports headache(s), Reports numbness and Reports tingling Psychiatric: Psychiatric: Denies confusion Endocrine: Endocrine: Reports fatigue Allergic/Immunologic: Allergic/Immunologic: Denies throat swelling and Reports wheezing PMFSH Past Medical History Medical History A-fib Acute on chronic combined systolic and diastolic congestive heart failure Alcohol use disorder, severe, dependence Alcoholic intoxication Atrial fibrillation, rapid CAD (coronary artery disease) Cardiomyopathy CHF (congestive heart failure) Cirrhosis Depression Diabetes ETOH abuse HTN (hypertension) Hyperglycemia Social History Social History Household Members: None Housing: Homeless Housing Other:: rents room Do you presently have visiting nurse or other home services: No Unable to assess alcohol history related to: Refusing to respond Alcohol intake: current Alcohol intake frequency: 3 or more drinks per day Alcohol type: beer and hard liquor Patient Tobacco Use Status: Current everyday Tobacco user Smoked in Last 30 Days: Yes Second Hand Smoke Exposure: No Use of substances other than those prescribed or required for medical reasons: No Advance Directives: No Advance Directives Information Provided: Yes service: No Current occupational status: unemployed and disabled Physical Exam Vital Signs: Vital Signs: Last Vital Signs Temp 97.2 F 04/08/21 22:10 Pulse 114 H 04/09/21 00:00 Resp 31 H 04/09/21 00:00 BP 164/88 H 04/09/21 00:00 Pulse Ox 94 04/09/21 00:00 BMI result Body Mass Index 37.8 Const: General: alert, awake, acute distress moderate and respiratory, ill appearing acutely and chronically and poor hygiene; No confusion or diaphoretic Nutritional Appearance: obese morbidly obese Orientation/consciousness: patient oriented x3 and No confusion Limitations: language barrier HENMT: Head: Yes normal to inspection and Yes No palpable skull fracture present Ears: hearing grossly normal bilaterally General nose exam: Normal external nose present Face and sinus: Yes normal facial exam Mouth: Normal oral and palatal mucosa present Teeth and gingiva: poor dentition Throat: Yes posterior oropharynx normal Eyes: Sclerae: scleral abnormal bilateral scleral injection diffuse Pupils: Equal, round and reactive pupils present EOM: EOMs intact bilaterally Neck: Neck: Yes full ROM, Yes no meningeal signs, Yes trachea midline and Yes supple Resp: Effort & Inspection: able to speak in complete sentences, Actively coughing Quality: wet, no nasal flaring, no paradoxical thoraco-abdom movements and no pursed lip breathing Auscultation: rhonchi throughout and wheezes throughout Cardio: Rate: tachycardic Rhythm: abnormal rhythm GI: Inspection: Yes distended, Yes Abdominal panniculus present and Yes obesity Palpation (GI): Soft to palpation, nontender, no guarding and not rigid Percussion: Yes normal to percussion Skin: Other: Bilateral venous stasis dermatitis with erythema and multiple varicosities Patient has multiple varicosities in lower extremities, has discolored feet and erythematous and indurated skin in distal lower extremities. Neuro: General: patient oriented x3, no meningeal signs, No confusion and Unable to assess gait Cranial nerves: Yes CN's II-XII intact bilaterally, Yes Facial sensation intact/muscles of mastication intact, Yes Equal, round and reactive pupils present, Yes Bilaterally intact EOM present, Yes Nystagmus not present, Yes Normal facial strength present, Yes Midline tongue present, Yes Ability to bilaterally rotate head present and Yes Ability to bilaterally elevate shoulders present Cognition (Neuro): normal cognition Speech: No Abnormal speech present Gait exam (Neuro): Unable to assess gait Motor exam (neuro): 5/5 motor strength present throughout and Pronator motor function not present Coordination: [id number] test normal Romberg Test: Negative Pupils: Normal pupillary reactivity/response: bilateral Extrem: Other: Bilateral multiple varicosities lower extremities, erythematous distal lower extremities with intact dorsal pedis and posterior tibial pulses bilaterally Left lower extremity: lower leg Psych: Appearance: disheveled Mental Status: mental status grossly normal Speech and movement: Clear speech present Affect: Anxious affect present Attitude: cooperative Course Course Course Narrative: 60-year-old male presents for bilateral lower extremity pain for the last 2 years, dyspnea, cough, chest pain, body aches, fever/chills, and request for help detoxing from alcohol. Patient has a past medical history of alcohol abuse and withdrawal, cirrhosis, coronary artery disease, hypertension, diabetes, hypomagnesemia, atrial fibrillation, congestive heart failure, cardiomyopathy. Patient was seen here 2 days ago for alcohol intoxication. Patient was seen in the emergency room 1 week ago for hypokalemia. Patient was seen in the emergency room 9 days ago for alcohol intoxication. On exam, patient has a temperature of 99.2?, he has respiration rate in the 40s, he is able to speak in full sentences and he is satting 96%. He is tachycardic in the 120's, and hypertensive at 166/102 His lungs are rhonchorous and wheezy throughout. Patient has scleral icterus and a distended abdomen which he states is his baseline distension. Benign abdominal exam. Patient has no neurological focal deficits, full strength in all extremities. Patient has multiple varicosities in lower extremities, has discolored feet and erythematous and indurated skin in distal lower extremities. RN did Doppler of the lower extremities and patient does have pulses in both feet. Patient also has intact sensation and motor strength in lower extremities. He has had leg pain for 2 years that is intermittent with numbness and tingling, diagnosed with diabetic neuropathy in his lower extremities Will get basic labs, chest x-ray, EKG, urine, BNP, INR, troponin, D-dimer, magnesium, blood cultures, lactic, VBG. Am giving albuterol treatment, fluids, Solu-Medrol. 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 Most likely dyspnea is not infectious etiology. Patient's BNP is 219, chest x-ray shows increasing right pleural effusion, with possible pulmonary edema or atypical infection. VBG shows respiratory alkalosis with a pH of 7.48, pCO2 of 32, bicarb 24. D-dimer is 1985, will CTA chest. INR 1.2 Patient's lactic is 2.1, this is most likely secondary to EtOH or nebulizer treatment. EKG shows no acute ischemia, troponin is 99.5, will repeat in 3 hours. CXR: IMPRESSION: Worsening pulmonary aeration with increased interstitial opacities and size of a right pleural effusion. Findings are indeterminate and could represent pulmonary edema or an atypical infection in the appropriate clinical setting. Reevaluation #2: CTA shows no pulmonary embolus. Shows increased pleural effusions with volume overload. Shows new patchy airspace opacity left lower lobe, cardiomegaly. Repeat lactic is 1.5, ethanol only 14. Patient is tolerating BiPAP, respiratory rate is now under 20. Patient's tachycardia is resolving, now heart rate is 101, blood pressure is also improving. Reevaluation #3: Patient weaned off of BiPAP. RR is now 18, heart rate is resolving. Repeat troponin is 110 at the 3 hour germán. Will admit for CHF exacerbation. MDM - Extremity Injury (Lower) Lab Data Result diagrams: 04/08/21 16:48 04/08/21 17:15 Labs: Lab Results 04/08/21 04/08/21 04/08/21 Range/Units 16:48 17:15 17:15 WBC 9.2 (4.8-10.8) X10*3/uL RBC 3.51 L (4.60-5.80) X10*6/uL Hgb 11.3 L (14.0-18.0) g/dl Hct 33.6 L (42.0-52.0) % MCV 95.7 (80.0-98.0) fL MCH 32.2 (27.0-33.0) pg MCHC 33.6 (31.0-36.0) g/dl RDW 14.4 (11.0-16.0) % Plt Count 94 L (160-400) X10*3/uL MPV 10.3 (9.4-12.4) fL Immature Gran % (Auto) 0.4 (0.0-0.4) % Neut % (Auto) 81.5 H (45-73) % Lymph % (Auto) 9.5 L (20-40) % Br[place]ley % (Auto) 8.4 (2-11) % Eos % (Auto) 0.1 (0-4) % Baso % (Auto) 0.1 (0-2) % Lymph # (Auto) 0.9 L (1.2-4.9) X10*3/uL [place] # (Auto) 0.8 (0.1-1.2) X10*3/uL Eos # (Auto) 0.0 (0.0-0.4) X10*3/uL Baso # (Auto) 0.0 (0.0-0.2) X10*3/uL Abs Immat Gran (auto) 0.04 H (0.00-0.03) X10*3/uL Absolute Neuts (auto) 7.5 (2.0-8.3) x10*3/uL Absolute Nucleated RBC 0.000 (0.0-0.012) X10*3/uL Nucleated RBC % (auto) 0.0 (0.0-0.2) /100WBC PT 14.2 H (9.9-13.0) SEC INR 1.2 H (0.9-1.1) D-Dimer High Sensitivty 1985 NG/ML VBG pH (7.32-7.43) VBG pCO2 mmHg VBG pO2 mmHg VBG HCO3 (22-26) mmol/L VBG O2 Saturation % VBG Base Excess mmol/L Sodium 139 (135-145) mmol/L Potassium 3.5 (3.3-5.1) mmol/L Chloride 102 (96-108) mmol/L Carbon Dioxide 25 (22-29) mmol/L Anion Gap 16 (12-20) BUN 6 L (9-16) mg/dL Creatinine 0.63 (0.5-1.4) mg/dL Estim Creat Clear Calc 158.6 Estimated GFR > 60 Random Glucose 195 H (60-115) mg/dL Lactic Acid (0.5-2.0) mmol/L Lactic Acid F/U @ 2Hr (0.5-2.0) mmol/L Calcium 8.8 (8.4-10.2) mg/dL Phosphorus 2.3 L (2.7-4.5) mg/dL Magnesium 1.5 L (1.6-2.6) mg/dL Total Bilirubin 1.4 H (0.0-1.0) mg/dL AST 40 H (5-37) U/L ALT 37 (0-40) U/L Alkaline Phosphatase 91 (39-117) U/L Troponin I High Sens (<3.5-35.0) ng/L B-Natriuretic Peptide (<100) pg/mL Total Protein 6.9 (6.5-8.0) g/dL Albumin 3.6 (3.5-5.0) g/dL Urine Color Urine Appearance Urine pH (5.0-8.0) Ur Specific [place] (1.005-1.025) Urine Protein (NEG-TRACE) MG/DL Urine Glucose (UA) (NEG) MG/DL Urine Ketones (NEG) MG/DL Urine Blood (NEG) Urine Nitrite (NEG) Ur Leukocyte Esterase (NEG) Urine RBC (0) /HPF Urine WBC (0-4) /HPF Ur Squamous Epith Cells /LPF Urine Bacteria /LPF Urine Opiates Screen (Not Detect) Urine Fentanyl Screen (Not Detect) Ur Barbiturates Screen (Not Detect) Ur Phencyclidine Scrn (Not Detect) Ur Amphetamines Screen (Not Detect) U Benzodiazepines Scrn (Not Detect) Urine Cocaine Screen (Not Detect) U Marijuana (THC) Screen (Not Detect) Ethyl Alcohol mg/dL COVID-19 (CHRISTI) (Negative) COVID-19 Clin Com 04/08/21 04/08/21 04/08/21 Range/Units 17:15 17:15 17:15 WBC (4.8-10.8) X10*3/uL RBC (4.60-5.80) X10*6/uL Hgb (14.0-18.0) g/dl Hct (42.0-52.0) % MCV (80.0-98.0) fL MCH (27.0-33.0) pg MCHC (31.0-36.0) g/dl RDW (11.0-16.0) % Plt Count (160-400) X10*3/uL MPV (9.4-12.4) fL Immature Gran % (Auto) (0.0-0.4) % Neut % (Auto) (45-73) % Lymph % (Auto) (20-40) % Brantley % (Auto) (2-11) % Eos % (Auto) (0-4) % Baso % (Auto) (0-2) % Lymph # (Auto) (1.2-4.9) X10*3/uL [place] # (Auto) (0.1-1.2) X10*3/uL Eos # (Auto) (0.0-0.4) X10*3/uL Baso # (Auto) (0.0-0.2) X10*3/uL Abs Immat Gran (auto) (0.00-0.03) X10*3/uL Absolute Neuts (auto) (2.0-8.3) x10*3/uL Absolute Nucleated RBC (0.0-0.012) X10*3/uL Nucleated RBC % (auto) (0.0-0.2) /100WBC PT (9.9-13.0) SEC INR (0.9-1.1) D-Dimer High Sensitivty NG/ML VBG pH (7.32-7.43) VBG pCO2 mmHg VBG pO2 mmHg VBG HCO3 (22-26) mmol/L VBG O2 Saturation % VBG Base Excess mmol/L Sodium (135-145) mmol/L Potassium (3.3-5.1) mmol/L Chloride (96-108) mmol/L Carbon Dioxide (22-29) mmol/L Anion Gap (12-20) BUN (9-16) mg/dL Creatinine (0.5-1.4) mg/dL Estim Creat Clear Calc Estimated GFR Random Glucose (60-115) mg/dL Lactic Acid 2.1 H* (0.5-2.0) mmol/L Lactic Acid F/U @ 2Hr (0.5-2.0) mmol/L Calcium (8.4-10.2) mg/dL Phosphorus (2.7-4.5) mg/dL Magnesium (1.6-2.6) mg/dL Total Bilirubin (0.0-1.0) mg/dL AST (5-37) U/L ALT (0-40) U/L Alkaline Phosphatase (39-117) U/L Troponin I High Sens 99.5 H (<3.5-35.0) ng/L B-Natriuretic Peptide 219 H (<100) pg/mL Total Protein (6.5-8.0) g/dL Albumin (3.5-5.0) g/dL Urine Color Urine Appearance Urine pH (5.0-8.0) Ur Specific [place] (1.005-1.025) Urine Protein (NEG-TRACE) MG/DL Urine Glucose (UA) (NEG) MG/DL Urine Ketones (NEG) MG/DL Urine Blood (NEG) Urine Nitrite (NEG) Ur Leukocyte Esterase (NEG) Urine RBC (0) /HPF Urine WBC (0-4) /HPF Ur Squamous Epith Cells /LPF Urine Bacteria /LPF Urine Opiates Screen (Not Detect) Urine Fentanyl Screen (Not Detect) Ur Barbiturates Screen (Not Detect) Ur Phencyclidine Scrn (Not Detect) Ur Amphetamines Screen (Not Detect) U Benzodiazepines Scrn (Not Detect) Urine Cocaine Screen (Not Detect) U Marijuana (THC) Screen (Not Detect) Ethyl Alcohol 14 mg/dL COVID-19 ([facility]RISTI) (Negative) COVID-19 Clin Com 04/08/21 04/08/21 04/08/21 Range/Units 17:20 17:26 19:48 WBC (4.8-10.8) X10*3/uL RBC (4.60-5.80) X10*6/uL Hgb (14.0-18.0) g/dl Hct (42.0-52.0) % MCV (80.0-98.0) fL MCH (27.0-33.0) pg MCHC (31.0-36.0) g/dl RDW (11.0-16.0) % Plt Count (160-400) X10*3/uL MPV (9.4-12.4) fL Immature Gran % (Auto) (0.0-0.4) % Neut % (Auto) (45-73) % Lymph % (Auto) (20-40) % Brantley % (Auto) (2-11) % Eos % (Auto) (0-4) % Baso % (Auto) (0-2) % Lymph # (Auto) (1.2-4.9) X10*3/uL [place] # (Auto) (0.1-1.2) X10*3/uL Eos # (Auto) (0.0-0.4) X10*3/uL Baso # (Auto) (0.0-0.2) X10*3/uL Abs Immat Gran (auto) (0.00-0.03) X10*3/uL Absolute Neuts (auto) (2.0-8.3) x10*3/uL Absolute Nucleated RBC (0.0-0.012) X10*3/uL Nucleated RBC % (auto) (0.0-0.2) /100WBC PT (9.9-13.0) SEC INR (0.9-1.1) D-Dimer High Sensitivty NG/ML VBG pH 7.48 H (7.32-7.43) VBG pCO2 32 mmHg VBG pO2 83 mmHg VBG HCO3 24 (22-26) mmol/L VBG O2 Saturation 95.0 % VBG Base Excess 1.5 mmol/L Sodium (135-145) mmol/L Potassium (3.3-5.1) mmol/L Chloride (96-108) mmol/L Carbon Dioxide (22-29) mmol/L Anion Gap (12-20) BUN (9-16) mg/dL Creatinine (0.5-1.4) mg/dL Estim Creat Clear Calc Estimated GFR Random Glucose (60-115) mg/dL Lactic Acid (0.5-2.0) mmol/L Lactic Acid F/U @ 2Hr (0.5-2.0) mmol/L Calcium (8.4-10.2) mg/dL Phosphorus (2.7-4.5) mg/dL Magnesium (1.6-2.6) mg/dL Total Bilirubin (0.0-1.0) mg/dL AST (5-37) U/L ALT (0-40) U/L Alkaline Phosphatase (39-117) U/L Troponin I High Sens (<3.5-35.0) ng/L B-Natriuretic Peptide (<100) pg/mL Total Protein (6.5-8.0) g/dL Albumin (3.5-5.0) g/dL Urine Color YELLOW Urine Appearance CLEAR Urine pH 6.0 (5.0-8.0) Ur Specific [place] 1.015 (1.005-1.025) Urine Protein 2+ H (NEG-TRACE) MG/DL Urine Glucose (UA) 250 H (NEG) MG/DL Urine Ketones 15 (NEG) MG/DL Urine Blood 2+ H (NEG) Urine Nitrite NEG (NEG) Ur Leukocyte Esterase NEG (NEG) Urine RBC 10-14 H (0) /HPF Urine WBC 0-2 (0-4) /HPF Ur Squamous Epith Cells NONE /LPF Urine Bacteria NONE /LPF Urine Opiates Screen (Not Detect) Urine Fentanyl Screen (Not Detect) Ur Barbiturates Screen (Not Detect) Ur Phencyclidine Scrn (Not Detect) Ur Amphetamines Screen (Not Detect) U Benzodiazepines Scrn (Not Detect) Urine Cocaine Screen (Not Detect) U Marijuana (THC) Screen (Not Detect) Ethyl Alcohol mg/dL COVID-19 (CHRISTI) Negative (Negative) COVID-19 Clin Com See Note 04/08/21 04/08/21 04/08/21 Range/Units 19:48 20:43 20:43 WBC (4.8-10.8) X10*3/uL RBC (4.60-5.80) X10*6/uL Hgb (14.0-18.0) g/dl Hct (42.0-52.0) % MCV (80.0-98.0) fL MCH (27.0-33.0) pg MCHC (31.0-36.0) g/dl RDW (11.0-16.0) % Plt Count (160-400) X10*3/uL MPV (9.4-12.4) fL Immature Gran % (Auto) (0.0-0.4) % Neut % (Auto) (45-73) % Lymph % (Auto) (20-40) % [place] % (Auto) (2-11) % Eos % (Auto) (0-4) % Baso % (Auto) (0-2) % Lymph # (Auto) (1.2-4.9) X10*3/uL [place] # (Auto) (0.1-1.2) X10*3/uL Eos # (Auto) (0.0-0.4) X10*3/uL Baso # (Auto) (0.0-0.2) X10*3/uL Abs Immat Gran (auto) (0.00-0.03) X10*3/uL Absolute Neuts (auto) (2.0-8.3) x10*3/uL Absolute Nucleated RBC (0.0-0.012) X10*3/uL Nucleated RBC % (auto) (0.0-0.2) /100WBC PT (9.9-13.0) SEC INR (0.9-1.1) D-Dimer High Sensitivty NG/ML VBG pH (7.32-7.43) VBG pCO2 mmHg VBG pO2 mmHg VBG HCO3 (22-26) mmol/L VBG O2 Saturation % VBG Base Excess mmol/L Sodium (135-145) mmol/L Potassium (3.3-5.1) mmol/L Chloride (96-108) mmol/L Carbon Dioxide (22-29) mmol/L Anion Gap (12-20) BUN (9-16) mg/dL Creatinine (0.5-1.4) mg/dL Estim Creat Clear Calc Estimated GFR Random Glucose (60-115) mg/dL Lactic Acid (0.5-2.0) mmol/L Lactic Acid F/U @ 2Hr 1.5 (0.5-2.0) mmol/L Calcium (8.4-10.2) mg/dL Phosphorus (2.7-4.5) mg/dL Magnesium (1.6-2.6) mg/dL Total Bilirubin (0.0-1.0) mg/dL AST (5-37) U/L ALT (0-40) U/L Alkaline Phosphatase (39-117) U/L Troponin I High Sens 111.0 H* (<3.5-35.0) ng/L B-Natriuretic Peptide (<100) pg/mL Total Protein (6.5-8.0) g/dL Albumin (3.5-5.0) g/dL Urine Color Urine Appearance Urine pH (5.0-8.0) Ur Specific [place] (1.005-1.025) Urine Protein (NEG-TRACE) MG/DL Urine Glucose (UA) (NEG) MG/DL Urine Ketones (NEG) MG/DL Urine Blood (NEG) Urine Nitrite (NEG) Ur Leukocyte Esterase (NEG) Urine RBC (0) /HPF Urine WBC (0-4) /HPF Ur Squamous Epith Cells /LPF Urine Bacteria /LPF Urine Opiates Screen Not Detected (Not Detect) Urine Fentanyl Screen Not Detected (Not Detect) Ur Barbiturates Screen Not Detected (Not Detect) Ur Phencyclidine Scrn Not Detected (Not Detect) Ur Amphetamines Screen Not Detected (Not Detect) U Benzodiazepines Scrn Not Detected (Not Detect) Urine Cocaine Screen Not Detected (Not Detect) U Marijuana (THC) Screen Not Detected (Not Detect) Ethyl Alcohol mg/dL COVID-19 (CHRISTI) (Negative) COVID-19 Clin Com ECG Data Interpretation: Atrial fibrillation with RVR, rate of 118, QRS 90, QTC 487, no acute ST elevation or depression, normal axis Discharge Plan Discharge Clinical Impression: CHF exacerbation Qualifiers: Heart failure type: unspecified Qualified Code(s): I50.9 - Heart failure, unspecified Patient Disposition: Admitted As Inpatient
--- NOTE | 2021-04-08 16:48 | ECG_ITS ---
Test Reason : ETOH Blood Pressure : / mmHG Vent. Rate : 118 BPM Atrial Rate : 000 BPM P-R Int : 000 ms QRS Dur : 090 ms QT Int : 348 ms P-R-T Axes : 000 -71 024 degrees QTc Int : 487 ms Atrial fibrillation with rapid ventricular response Left axis deviation Low voltage QRS Cannot rule out Inferior infarct (cited on or before 02-JUL-2016) Cannot rule out Anterior infarct (cited on or before 02-JUL-2016) Abnormal ECG When compared with ECG of 06-APR-2021 13:52, No significant changes seen Referred By: Destiny Scales Electronically Signed By:ADRIANA CORRAL
--- NOTE | 2021-04-08 16:54 | PC.NURSE ---
bilateral pedal pulses audible via doppler
[2021-04-08 17:28] LABS: Basophils Percent Auto 0.1 % (0-2); Eosinophils Percent Auto 0.1 % (0-4); Hematocrit 33.6 % (42.0-52.0); Hemoglobin 11.3 g/dl (14.0-18.0); Imm Gran Abs Auto 0.04 X10*3/uL (0.00-0.03); Imm Gran Pct Auto 0.4 % (0.0-0.4); Lymphocytes Absolute Auto 0.9 X10*3/uL (1.2-4.9); Lymphocytes Percent Auto 9.5 % (20-40); MANUAL DIFF FLAG NO; Mean Corpuscular HGB Conc 33.6 g/dl (31.0-36.0); Mean Corpuscular Hemoglobin 32.2 pg (27.0-33.0); Mean Corpuscular Volume 95.7 fL (80.0-98.0); Mean Platelet Volume 10.3 fL (9.4-12.4); Monocytes Absolute Auto 0.8 X10*3/uL (0.1-1.2); Monocytes Percent Auto 8.4 % (2-11); Neutrophils Absolute Auto 7.5 x10*3/uL (2.0-8.3); Neutrophils Percent Auto 81.5 % (45-73); Red Blood Count 3.51 X10*6/uL (4.60-5.80); Red Cell Distribution Width 14.4 % (11.0-16.0); White Blood Count 9.2 X10*3/uL (4.8-10.8)
[2021-04-08 17:32] LABS: Platelet Count 94 X10*3/uL (160-400)
[2021-04-08 17:33] LABS: VBG Base Excess 1.5 mmol/L; VBG HCO3 24 mmol/L (22-26); VBG pCO2 32 mmHg; VBG pH 7.48 (7.32-7.43); VBG pO2 83 mmHg
[2021-04-08 17:35] LABS: Venous Blood Gas Refer to POC result
[2021-04-08 17:37] LABS: INTERNATIONAL NORM RATIO 1.2 (0.9-1.1); Prothrombin Time 14.2 SEC (9.9-13.0)
[2021-04-08 17:45] LABS: COVID-19 Test Negative (Negative); IDNOW Serial# 9DD0AD1C
[2021-04-08] MEDS: Albuterol Sulfate 90 MCG 8 GM INHALER 2 PUFF INHALE (17:47)
[2021-04-08 17:50] LABS: B Type Natriuretic Peptide 219 pg/mL (<100); Troponin-I High Sensitivity 99.5 ng/L (<3.5-35.0)
[2021-04-08 18:21] LABS: D Dimer High Sensitivity 1985 NG/ML
[2021-04-08 18:33] LABS: Alanine Aminotransferase 37 U/L (0-40); Albumin Level 3.6 g/dL (3.5-5.0); Alkaline Phosphatase 91 U/L (39-117); Anion Gap 16 (12-20); Aspartate Amino Transferase 40 U/L (5-37); Bilirubin Total 1.4 mg/dL (0.0-1.0); Blood Urea Nitrogen 6 mg/dL (9-16); Calcium 8.8 mg/dL (8.4-10.2); Carbon Dioxide 25 mmol/L (22-29); Chloride 102 mmol/L (96-108); Creatinine Clr Calc Pharmacy 158.6; Estimated Glomerular Filt Rate > 60; Glucose Random 195 mg/dL (60-115); Magnesium 1.5 mg/dL (1.6-2.6); Phosphorus 2.3 mg/dL (2.7-4.5); Potassium 3.5 mmol/L (3.3-5.1); Sodium 139 mmol/L (135-145); Total Protein 6.9 g/dL (6.5-8.0)
[2021-04-08 18:36] LABS: Lactic Acid 2.1 mmol/L (0.5-2.0)
[2021-04-08] MEDS: 0.9 % Sodium Chloride 1,000 ML 999 ML IV (18:36)
[2021-04-08] MEDS: methylPREDNISolone Sod Succ 125 MG/2 ML VIAL IVPUSH (18:36)
[2021-04-08] MEDS: dilTIAZem HCL 50 MG/10 ML VIAL 10 MG IVPUSH (18:55)
[2021-04-08] MEDS: Furosemide 100 MG/10 ML VIAL 60 MG IVPUSH (19:00)
[2021-04-08 19:24] LABS: Reflex Lactate? Lactic Acid Added
[2021-04-08 19:56] LABS: Appearance Urine CLEAR; Color Urine YELLOW; Glucose Urine UA 250 MG/DL (NEG); Leukocyte Esterase Urine NEG (NEG); Nitrite Urine NEG (NEG); Specific Gravity - Urine 1.015 (1.005-1.025); UACC Culture Trigger NO; Urine Blood 2+ (NEG); Urine Ketones 15 MG/DL (NEG); Urine Protein 2+ MG/DL (NEG-TRACE)
[2021-04-08] MEDS: iohexoL 350 MG/ML 100 ML INFUS..BTL IV (20:00)
[2021-04-08 20:03] LABS: WBC Urine 0-2 /HPF (0-4)
[2021-04-08 20:10] LABS: Amphetamine Screen Urine Not Detected (Not Detect); Barbiturates, Urine Not Detected (Not Detect); Benzodiazepines Screen Urine Not Detected (Not Detect); Cannabinoid Screen Urine Not Detected (Not Detect); Cocaine Screen Urine Not Detected (Not Detect); Fentanyl, urine Not Detected (Not Detect); Opiate Screen Urine Not Detected (Not Detect); Phencyclidine Screen Urine Not Detected (Not Detect)
[2021-04-08 20:47] LABS: Ethanol 14 mg/dL
[2021-04-08 21:02] LABS: ~Lactic Acid-LAB USE ONLY 1.5 mmol/L (0.5-2.0)
--- NOTE | 2021-04-08 21:27 | PC.NURSE ---
PATIENT PLACED ON BIPAP ON RESP THERAPIST ODIN AND PROVIDER. JIM JAVIER. PATIENT TOLERATING WELL. HEART RATE IS 113. SKIN IS P,D,W. PATIENT USING URINAL OF I&Os PLAN OF CARE WILL BE FORE ADMISSION. MEDICATION REC COMPLETED.
[2021-04-08] MEDS: LORazepam 2 MG/ML VIAL 1 MG IVPUSH (22:08)
--- NOTE | 2021-04-08 23:29 | PC.NURSE ---
respiratory therapist taking patient off bipap. patient is alert, ciwa scale is 0 at this time. patient is sleeping with no distress noted. skin is p,d,w. awaiting revaluation from provider now that he is off bipap plan for admission to hospital. awaiting hospitalist evaluation as well.
[2021-04-09] VITALS (13 sets, daily range): BP systolic 125–173; BP diastolic 86–103; PULSE 91–120; RESP 19–36; TEMP 36.3–37.2; O2SAT 93–100
--- NOTE | 2021-04-09 01:49 | P.HPHOSP_ITS ---
History of Present Illness Date of Service: 04/09/21 Chief Complaint: Shortness of breath Patient is Hebrew-speaking and history is obtained with the help of an [employer] caf[employer] This is a 60-year-old male with history of AFib, combined systolic and diastolic congestive heart failure with an ejection fraction of 10-15%, history of alcohol abuse, CAD, liver cirrhosis, depression, diabetes, hypertension, who presents to the hospital with complaints of difficulty breathing. Patient reports that he has been homeless and has not been able to be compliant with his medication. He has been having difficulty breathing for the past 1 week, he has had fever and chills, headache, leg swelling, orthopnea as well as PND, some nausea vomiting that has now resolved. He had diarrhea that has now resolved. denies any chest pain at this time, no palpitations, no abdominal pain, no urinary symptoms. On arrival to the ED patient's vitals significant for temp of 99.2?, heart rate of 127, respiratory rate of 48, satting 96 on room air Labs were found to be significant for WBC count 9.2, hemoglobin of 11.3, PT of 14.2, INR of 1.2, lactic acid of 2.1, phos of 2.3, magnesium of 1.1, BNP of 219, UA that is positive for blood and RBC no evidence of infection and UA Chest CT angiogram shows no discrete PE seen but patient has new patchy airspace opacities in the left lower lobe with improved patchy airspace opacity in the right. Increased pleural effusion and septal thickening bilaterally suggesting volume overload. Patient will be admitted for further management Review of Systems Review of Systems: Yes all other systems are reviewed and are negative [facility] Medical History A-fib Acute on chronic combined systolic and diastolic congestive heart failure Alcohol use disorder, severe, dependence Alcoholic intoxication Atrial fibrillation, rapid CAD (coronary artery disease) Cardiomyopathy CHF (congestive heart failure) Cirrhosis Depression Diabetes ETOH abuse HTN (hypertension) Hyperglycemia Family History (Updated 04/09/21 @ 06:32 by Derrick Garza MD) Other Diabetes Pertinent family history: No history of coronary artery disease Social History Household Members: None Housing: Homeless Housing Other:: rents room Do you presently have visiting nurse or other home services: No Unable to assess alcohol history related to: Refusing to respond Alcohol intake: current Alcohol intake frequency: 3 or more drinks per day Alcohol type: beer and hard liquor Patient Tobacco Use Status: Current everyday Tobacco user Smoked in Last 30 Days: Yes Second Hand Smoke Exposure: No Use of substances other than those prescribed or required for medical reasons: No Advance Directives: No Advance Directives Information Provided: Yes service: No Current occupational status: unemployed and disabled Meds Allergies Allergy/AdvReac Type Severity Reaction Status Date / Time Penicillins [PCN] Allergy Unknown UNKNOWN Verified 04/08/21 16:26 Home Medications Medication Instructions Recorded Confirmed Last Taken Type atorvastatin 40 mg tablet 1 tab PO BEDTIME 09/11/20 04/08/21 11/14/20 History gabapentin 400 mg capsule 1 cap PO TID 09/11/20 04/08/21 11/14/20 History metformin 1,000 mg tablet 1 tab PO BIDWM 09/11/20 04/08/21 11/14/20 History trazodone 50 mg tablet 1 tab PO BEDTIME PRN 09/11/20 04/08/21 11/01/20 History metoprolol tartrate 50 mg tablet 1 tab PO BID 11/16/20 04/08/21 11/14/20 History multivitamin 1 tab PO DAILY 11/16/20 04/08/21 11/14/20 History Physical Exam Vital Signs and Narrative: Vital Signs: Last Vital Signs Temp 97.2 F 04/08/21 22:10 Pulse 114 H 04/09/21 00:00 Resp 31 H 04/09/21 00:00 BP 164/88 H 04/09/21 00:00 Pulse Ox 94 04/09/21 00:00 BMI result Body Mass Index 37.8 Const: General: cooperative and no acute distress Orientation/consciousness: patient oriented x3 Eyes: General: appearance normal, both eyes and all related structures Pupils: Equal, round and reactive pupils present Resp: Other: Crackles bilaterally Effort & Inspection: normal respiratory effort Cardio: Other: Tachycardic Rate: regular rate Rhythm: regular rhythm GI: Palpation (GI): Soft to palpation Auscultation: normal bowel sounds Skin: General skin exam: no rashes or lesions noted Neuro: General: patient oriented x3 Cranial nerves: Yes Equal, round and reactive pupils present Cognition (Neuro): normal cognition Extrem: Other: Has varicose veins throughout the lower extremity, 1+ pitting edema. Results Labs CBC and Chem 7: 04/08/21 16:48 04/08/21 17:15 Labs: Laboratory Results - last 24 hr 04/08/21 04/08/21 04/08/21 16:48 17:15 17:15 MCV 95.7 MCH 32.2 MCHC 33.6 RDW 14.4 Plt Count 94 L MPV 10.3 Immature Gran % (Auto) 0.4 Neut % (Auto) 81.5 H Lymph % (Auto) 9.5 L [place] % (Auto) 8.4 Eos % (Auto) 0.1 Baso % (Auto) 0.1 Lymph # (Auto) 0.9 L [place] # (Auto) 0.8 Eos # (Auto) 0.0 Baso # (Auto) 0.0 Abs Immat Gran (auto) 0.04 H Absolute Neuts (auto) 7.5 Absolute Nucleated RBC 0.000 Nucleated RBC % (auto) 0.0 PT 14.2 H INR 1.2 H D-Dimer High Sensitivty 1985 VBG pH VBG pCO2 VBG pO2 VBG HCO3 VBG O2 Saturation VBG Base Excess Anion Gap 16 Estim Creat Clear Calc 158.6 Estimated GFR > 60 Random Glucose 195 H Lactic Acid Lactic Acid F/U @ 2Hr Calcium 8.8 Phosphorus 2.3 L Magnesium 1.5 L Total Bilirubin 1.4 H AST 40 H ALT 37 Alkaline Phosphatase 91 Troponin I High Sens B-Natriuretic Peptide Total Protein 6.9 Albumin 3.6 Urine Color Urine Appearance Urine pH Ur Specific [place] Urine Protein Urine Glucose (UA) Urine Ketones Urine Blood Urine Nitrite Ur Leukocyte Esterase Urine RBC Urine WBC Ur Squamous Epith Cells Urine Bacteria Urine Opiates Screen Urine Fentanyl Screen Ur Barbiturates Screen Ur Phencyclidine Scrn Ur Amphetamines Screen U Benzodiazepines Scrn Urine Cocaine Screen U Marijuana (THC) Screen Ethyl Alcohol COVID-19 ([facility]) COVID-19 Clin Com 04/08/21 04/08/21 04/08/21 17:15 17:15 17:15 MCV MCH MCHC RDW Plt Count MPV Immature Gran % (Auto) Neut % (Auto) Lymph % (Auto) [place] % (Auto) Eos % (Auto) Baso % (Auto) Lymph # (Auto) [place] # (Auto) Eos # (Auto) Baso # (Auto) Abs Immat Gran (auto) Absolute Neuts (auto) Absolute Nucleated RBC Nucleated RBC % (auto) PT INR D-Dimer High Sensitivty VBG pH VBG pCO2 VBG pO2 VBG HCO3 VBG O2 Saturation VBG Base Excess Anion Gap Estim Creat Clear Calc Estimated GFR Random Glucose Lactic Acid 2.1 H* Lactic Acid F/U @ 2Hr Calcium Phosphorus Magnesium Total Bilirubin AST ALT Alkaline Phosphatase Troponin I High Sens 99.5 H B-Natriuretic Peptide 219 H Total Protein Albumin Urine Color Urine Appearance Urine pH Ur Specific [place] Urine Protein Urine Glucose (UA) Urine Ketones Urine Blood Urine Nitrite Ur Leukocyte Esterase Urine RBC Urine WBC Ur Squamous Epith Cells Urine Bacteria Urine Opiates Screen Urine Fentanyl Screen Ur Barbiturates Screen Ur Phencyclidine Scrn Ur Amphetamines Screen U Benzodiazepines Scrn Urine Cocaine Screen U Marijuana (THC) Screen Ethyl Alcohol 14 COVID-19 ([facility]) COVID-19 [employer] Com 04/08/21 04/08/21 04/08/21 17:20 17:26 19:48 MCV MCH MCHC RDW Plt Count MPV Immature Gran % (Auto) Neut % (Auto) Lymph % (Auto) [place] % (Auto) Eos % (Auto) Baso % (Auto) Lymph # (Auto) [place] # (Auto) Eos # (Auto) Baso # (Auto) Abs Immat Gran (auto) Absolute Neuts (auto) Absolute Nucleated RBC Nucleated RBC % (auto) PT INR D-Dimer High Sensitivty VBG pH 7.48 H VBG pCO2 32 VBG pO2 83 VBG HCO3 24 VBG O2 Saturation 95.0 VBG Base Excess 1.5 Anion Gap Estim Creat Clear Calc Estimated GFR Random Glucose Lactic Acid Lactic Acid F/U @ 2Hr Calcium Phosphorus Magnesium Total Bilirubin AST ALT Alkaline Phosphatase Troponin I High Sens B-Natriuretic Peptide Total Protein Albumin Urine Color YELLOW Urine Appearance CLEAR Urine pH 6.0 Ur Specific [place] 1.015 Urine Protein 2+ H Urine Glucose (UA) 250 H Urine Ketones 15 Urine Blood 2+ H Urine Nitrite NEG Ur Leukocyte Esterase NEG Urine RBC 10-14 H Urine WBC 0-2 Ur Squamous Epith Cells NONE Urine Bacteria NONE Urine Opiates Screen Urine Fentanyl Screen Ur Barbiturates Screen Ur Phencyclidine Scrn Ur Amphetamines Screen U Benzodiazepines Scrn Urine Cocaine Screen U Marijuana (THC) Screen Ethyl Alcohol COVID-19 ([facility]) Negative COVID-19 Clin Com See Note 04/08/21 04/08/21 04/08/21 19:48 20:43 20:43 MCV MCH MCHC RDW Plt Count MPV Immature Gran % (Auto) Neut % (Auto) Lymph % (Auto) [place] % (Auto) Eos % (Auto) Baso % (Auto) Lymph # (Auto) [place] # (Auto) Eos # (Auto) Baso # (Auto) Abs Immat Gran (auto) Absolute Neuts (auto) Absolute Nucleated RBC Nucleated RBC % (auto) PT INR D-Dimer High Sensitivty VBG pH VBG pCO2 VBG pO2 VBG HCO3 VBG O2 Saturation VBG Base Excess Anion Gap Estim Creat Clear Calc Estimated GFR Random Glucose Lactic Acid Lactic Acid F/U @ 2Hr 1.5 Calcium Phosphorus Magnesium Total Bilirubin AST ALT Alkaline Phosphatase Troponin I High Sens 111.0 H* B-Natriuretic Peptide Total Protein Albumin Urine Color Urine Appearance Urine pH Ur Specific [place] Urine Protein Urine Glucose (UA) Urine Ketones Urine Blood Urine Nitrite Ur Leukocyte Esterase Urine RBC Urine WBC Ur Squamous Epith Cells Urine Bacteria Urine Opiates Screen Not Detected Urine Fentanyl Screen Not Detected Ur Barbiturates Screen Not Detected Ur Phencyclidine Scrn Not Detected Ur Amphetamines Screen Not Detected U Benzodiazepines Scrn Not Detected Urine Cocaine Screen Not Detected U Marijuana (THC) Screen Not Detected Ethyl Alcohol COVID-19 ([facility]) COVID-19 Clin Com Imaging Radiologist's Impressions: Impressions Chest X-Ray 04/08/21 17:41 IMPRESSION: Worsening pulmonary aeration with increased interstitial opacities and size of a right pleural effusion. Findings are indeterminate and could represent pulmonary edema or an atypical infection in the appropriate clinical setting. Chest CTA 04/08/21 19:59 IMPRESSION: Examination of the pulmonary arteries is degraded by motion and overlying airspace opacities. However, accounting for these limitations, no discrete pulmonary embolus is identified. No evidence of increased right-sided heart pressures. New patchy airspace opacities in the left lower lobe with improved patchy airspace opacities in the right lung. Increase pleural effusions and septal thickening bilaterally suggesting volume overload. Cardiomegaly. Suspect cirrhotic morphology of the liver. VTE: negative Assessment and Plan (1) CHF exacerbation: Qualifiers: Heart failure type: unspecified Qualified Code(s): I50.9 - Heart failure, unspecified Status: Acute (2) Pneumonia: Qualifiers: Laterality: bilateral Lung location: unspecified part of lung Pneumonia type: due to unspecified organism Qualified Code(s): J18.9 - Pneumonia, unspecified organism Status: Acute (3) Hypomagnesemia: Status: Acute (4) Hypophosphatemia: Status: Acute (5) Varicose veins of right lower extremity with inflammation: Status: Acute (6) Lactic acidosis: Status: Acute (7) Alcohol abuse with withdrawal: Status: Acute Is a 60-year-old male with past medical history of diabetes, HTN, CHF with r educed ejection fraction, presents the hospital with difficulty breathing found to have CHF as well as pneumonia # acute CHF exacerbation - has pleural effusion on chest CT, orthopnea PND, dyspnea, as well as elevated BNP - patient on Lasix at home but has been noncompliant due to homelessness - start him on Lasix 40 IV b.i.d. - low-sodium diet, daily weight, strict I&O - cardiology consult - repeat echo- last echo done in April showed ejection fraction of 10-15% # community-acquired pneumonia - at patchy infiltrate on chest CT - patient afebrile, no leukocytosis - will start on IV antibiotics - follow cultures # hypomagnesemia - repleted - repeat level # hypophosphatemia - repleted # varicose veins of lower extremities - will obtain venous Dopplers # lactic acidosis - most likely secondary to hypoxia as well as acute infection - resolved # alcohol abuse with potential follow alcohol withdrawal - drinks 15 drinks a day, last drink was the day prior to admission - will start him on phenobarb protocol folic acid and thiamine # diabetes - continue home insulin, will add low-dose sliding scale insulin, diabetic diet DVT prophylaxis: Lovenox Quality Stroke Does the patient have a stroke diagnosis?: No VTE Prior VTE?: No VTE Risk Level:: Medical - moderate - high VTE Device Contraindication: Treatment Not Indicated VTE Drug Contraindication: N/A - Med Ordered
[2021-04-09] MEDS: cefTRIAXone sodium 1 GM in 0.9 % Sodium Chloride 50 ML IV (02:44)
[2021-04-09] MEDS: PHENobarbitaL sodium 130 MG/ML VIAL 284 MG IM (02:45)
[2021-04-09] MEDS: Azithromycin 500 MG in 0.9 % Sodium Chloride 250 ML 125 MG IV (03:15)
[2021-04-09] MEDS: Furosemide 40 MG/4 ML VIAL IVPUSH ×2 (05:39→17:46)
[2021-04-09] MEDS: PHENobarbitaL sodium 130 MG/ML VIAL 213 MG IM ×2 (05:39→07:28)
[2021-04-09 07:13] LABS: Glucose, Whole Blood 284 mg/dL (60-115)
[2021-04-09 07:22] LABS: MANUAL DIFF FLAG NO
[2021-04-09] MEDS: Insulin Lispro 100 UNIT/ML 3 ML VIAL SUBCUT ×6 (07:29→21:26)
[2021-04-09] MEDS: Magnesium Sulfate/H2O 2 GM/50 ML PIGGYBACK IV (07:29)
--- NOTE | 2021-04-09 07:30 | PC.NURSE ---
unable to obtain second iv access at this time to hang the potassium
--- NOTE | 2021-04-09 07:45 | PC.NURSE ---
pt alert and oriented, skin pwd, respirations slightly labored, breathing anywhere from 22-28 a min. ls some wheezing in the bases, sating at 98% on 2l, some lower extremities peding edema +1, pt voided 1000 ml of yellow urine pt reprots pain in his legs pain at 7/10
[2021-04-09] MEDS: 0.9 % Sodium Chloride Flush 3 ML SYRINGE IVFLUSH ×3 (07:49→20:16)
[2021-04-09 07:57] LABS: Anion Gap 19 (12-20); Blood Urea Nitrogen 12 mg/dL (9-16); Calcium 8.5 mg/dL (8.4-10.2); Carbon Dioxide 27 mmol/L (22-29); Chloride 99 mmol/L (96-108); Creatinine Clr Calc Pharmacy 146.9; Estimated Glomerular Filt Rate > 60; Glucose Random 278 mg/dL (60-115); Potassium 3.8 mmol/L (3.3-5.1); Sodium 141 mmol/L (135-145)
[2021-04-09 08:56] LABS: Basophils Percent Auto 0.2 % (0-2); Hematocrit 36.1 % (42.0-52.0); Hemoglobin 11.8 g/dl (14.0-18.0); Imm Gran Abs Auto 0.05 X10*3/uL (0.00-0.03); Imm Gran Pct Auto 0.8 % (0.0-0.4); Lymphocytes Absolute Auto 0.4 X10*3/uL (1.2-4.9); Lymphocytes Percent Auto 6.7 % (20-40); Mean Corpuscular HGB Conc 32.7 g/dl (31.0-36.0); Mean Corpuscular Hemoglobin 31.5 pg (27.0-33.0); Mean Corpuscular Volume 96.3 fL (80.0-98.0); Mean Platelet Volume 11.1 fL (9.4-12.4); Monocytes Absolute Auto 0.2 X10*3/uL (0.1-1.2); Monocytes Percent Auto 2.3 % (2-11); Neutrophils Absolute Auto 5.8 x10*3/uL (2.0-8.3); Red Blood Count 3.75 X10*6/uL (4.60-5.80); Red Cell Distribution Width 14.6 % (11.0-16.0); White Blood Count 6.4 X10*3/uL (4.8-10.8)
[2021-04-09 08:58] LABS: Platelet Count 94 X10*3/uL (160-400)
[2021-04-09] MEDS: Potassium Phosphate 30 MMOL in 0.9 % Sodium Chloride 500 ML 85 MMOL IV (09:40)
[2021-04-09 09:50] LABS: Glucose, Whole Blood 336 mg/dL (60-115)
[2021-04-09] MEDS: Enoxaparin Sodium 40 MG/0.4 ML SYRINGE SUBCUT (09:54)
[2021-04-09] MEDS: Insulin Glargine,Hum.rec.anlog 100 UNIT/ML 10 ML VIAL 8 UNIT SUBCUT (09:54)
[2021-04-09] MEDS: Multivitamin TABLET 1 TAB PO (09:55)
[2021-04-09] MEDS: Aspirin Enteric Coated 81 MG TABLET.DR PO (09:55)
[2021-04-09] MEDS: Thiamine HCL 100 MG TABLET PO (09:55)
[2021-04-09] MEDS: Metoprolol Tartrate 50 MG TABLET PO ×2 (09:55→20:15)
[2021-04-09] MEDS: Folic Acid 1 MG TABLET PO (09:55)
[2021-04-09] MEDS: Gabapentin 400 MG CAPSULE PO ×2 (09:55→20:15)
[2021-04-09 12:23] LABS: Glucose, Whole Blood 291 mg/dL (60-115)
--- NOTE | 2021-04-09 12:34 | MHC.CDI.CONC ---
CDI Concurrent Query Documentation Clarification: PHYSICIAN'S DOCUMENTATION REQUEST Date of Query: 04/09/21 1235 Patient Name: Sabino Lilly Admit Date: 04/09/21 Dear Doctor, A review of the medical record indicates additional documentation may be needed. Please review below and update the documentation accordingly. Risk Factors/Clinical Indicators/Treatments Liver cirrhosis Alcoholic, severe, dependence. Ethanol 14 Possible alcohol withdrawal, has been drinking for 5 days. Based on the above, could you clarify in the Progress Notes the appropriate diagnosis, if significant, that supports the above abnormalities and additional evaluation, monitoring, and/or treatment rendered: Liver cirrhosis Alcoholic liver cirrhosis Other (please specify) Unable to determine Use of terms such as suspected, likely, concern for, or probable (associated with a specific diagnosis that is being evaluated, monitored, or treated as if it exists) are acceptable and can be coded in the inpatient setting, when documented at the time of discharge. Thank you, Carissa Zepeda [facility], CDIS Extension: [phone] Please use your independent medical judgment in providing your response. THIS QUERY IS PART OF THE PERMANENT MEDICAL RECORD Provider Response: Other Other Diagnosis: alcohol liver cirrhosis
--- NOTE | 2021-04-09 12:43 | P.CONCA_ITS ---
History of Present Illness History of Present Illness Date of Service: 04/09/21 Chief complaint: CHF Exacerbation Narrative: This is a cardiology consultation regarding congestive heart failure. I spoke to the patient using a Swedish speech language pathologist prn. He has a history of chronic atrial fibrillation as well as congestive heart failure. He has severe cardiomyopathy with LVEF in the 15-20% range. He does not have any stable residence and he also has alcohol issues. He has had multiple admissions in the past for various reasons. This time, he is admitted to the hospital with sickle cell the breathing, chest pains, coughing, possibly some expectoration. The chest pain itself is highly atypical and he is not able to clearly see if it is pleuritic are otherwise in spite of questioning numerous times. Otherwise, but H&P is also had fever, chills, headache, some leg swelling orthopnea, nausea and vomiting although these are improved at this time. We have been asked to see him from heart failure standpoint. Because of his homelessness, it seems that he really does not take any medications at baseline. Review of Systems Review of Systems: Yes all other systems are reviewed and are negative Cardiovascular: Cardiovascular: Reports as per HPI, Reports no additional cardiovascular complaints, Denies acrocyanosis, Denies cool extremities, Denies painful fingertips, Denies chest pain, Denies chest pain at rest, Denies diaphoresis, Denies syncope, Denies irregular heart rhythm, Denies claudication, Denies leg edema, Denies lightheadedness, Denies palpitations and Reports dyspnea Respiratory: Respiratory: Reports cough and Reports dyspnea Neurologic: Denies syncope Endocrine: Endocrine: Denies palpitations PMF Past Medical History Medical History A-fib Acute on chronic combined systolic and diastolic congestive heart failure Alcohol use disorder, severe, dependence Alcoholic intoxication Atrial fibrillation, rapid CAD (coronary artery disease) Cardiomyopathy CHF (congestive heart failure) Cirrhosis Depression Diabetes ETOH abuse HTN (hypertension) Hyperglycemia Family History Family History (Updated 04/09/21 @ 06:32 by Derrick Garza MD) Other Diabetes Social History Social History Household Members: None Housing: Homeless Housing Other:: rents room Do you presently have visiting nurse or other home services: No Unable to assess alcohol history related to: Refusing to respond Alcohol intake: current Alcohol intake frequency: 3 or more drinks per day Alcohol type: beer and hard liquor Patient Tobacco Use Status: Current everyday Tobacco user Smoked in Last 30 Days: Yes Second Hand Smoke Exposure: No Use of substances other than those prescribed or required for medical reasons: No Advance Directives: No Advance Directives Information Provided: Yes service: No Current occupational status: unemployed and disabled Meds Allergies Allergy/AdvReac Type Severity Reaction Status Date / Time Penicillins [PCN] Allergy Unknown UNKNOWN Verified 04/08/21 16:26 Active Medications: Current Medications Acetaminophen (Acetaminophen 325 Mg Tablet) 650 mg PO Q6H PRN PRN Reason: Pain, Mild (Pain Scale 1-3) Aspirin (Aspirin Enteric Coated 81 Mg Tablet.) 81 mg PO DAILY [facility] Last Admin: 04/09/21 09:55 Dose: 81 mg Documented by: Atorvastatin Calcium (Atorvastatin Calcium 40 Mg Tablet) 40 mg PO BEDTIME [facility] Dextrose (Dextrose 50 % 25 Gm/50 Ml Vial) 25 gm IVPUSH Q15M PRN; Protocol PRN Reason: per Hypoglycemia Standing Ord. Docusate Sodium (Docusate Sodium 100 Mg Capsule) 100 mg PO DAILY PRN PRN Reason: Constipation Enoxaparin Sodium (Enoxaparin Sodium 40 Mg/0.4 Ml Syringe) 40 mg SUBCUT Q24H [facility] Last Admin: 04/09/21 09:54 Dose: 40 mg Documented by: Folic Acid (Folic Acid 1 Mg Tablet) 1 mg PO DAILY [facility] Last Admin: 04/09/21 09:55 Dose: 1 mg Documented by: Furosemide (Furosemide 40 Mg/4 Ml Vial) 40 mg IVPUSH Q12H [facility]; Protocol Last Admin: 04/09/21 05:39 Dose: 40 mg Documented by: Gabapentin (Gabapentin 400 Mg Capsule) 400 mg PO TID [facility] Last Admin: 04/09/21 09:55 Dose: 400 mg Documented by: Glucose (Glucose Gel 15 Gm Gel..Gram.) 15 gm PO Q15M PRN; Protocol PRN Reason: per Hypoglycemia Standing Ord. Ceftriaxone Sodium 1 gm/ (Sodium Chloride) 50 mls @ 100 mls/hr IV Q24H [facility] Last Infusion: 04/09/21 03:15 Dose: Infused Documented by: Azithromycin 500 mg/ Sodium (Chloride) 250 mls @ 125 mls/hr IV Q24H [facility] Last Infusion: 04/09/21 05:59 Dose: Infused Documented by: Potassium Phosphate 30 mmol/ (Sodium Chloride) 510 mls @ 85 mls/hr IV ONCE ONE Stop: 04/09/21 13:29 Last Admin: 04/09/21 09:40 Dose: 85 mls/hr Documented by: Insulin Glargine (Insulin Glargine,Hum.Rec.Anlog 100 Unit/Ml 10 Ml Vial) 8 unit SUBCUT DAILY [facility] Last Admin: 04/09/21 09:54 Dose: 8 unit Documented by: Insulin Human Lispro (Insulin Lispro 100 Unit/Ml 3 Ml Vial) 5 unit SUBCUT TID [facility] Last Admin: 04/09/21 09:54 Dose: 5 unit Documented by: Insulin Human Lispro (Insulin Lispro 100 Unit/Ml 3 Ml Vial) 0 unit SUBCUT QIDACHS [facility]; Protocol Last Admin: 04/09/21 12:41 Dose: 6 unit Documented by: Medication (No Benzodiazepines) 1 each MISCELLANE DAILY [facility] Metoprolol Tartrate (Metoprolol Tartrate 50 Mg Tablet) 50 mg PO BID [facility]; Protocol Last Admin: 04/09/21 09:55 Dose: 50 mg Documented by: Multivitamins/Vitamin C (Multivitamin Tablet) 1 tab PO DAILY [facility] Last Admin: 04/09/21 09:55 Dose: 1 tab Documented by: Ondansetron HCl (Ondansetron Hcl 4 Mg/2 Ml Vial) 4 mg IVPUSH Q8H PRN PRN Reason: Nausea and Vomiting Phenobarbital (Phenobarbital 15 Mg Tablet) 45 mg PO BID [facility]; Protocol Stop: 04/11/21 09:01 Phenobarbital (Phenobarbital 30 Mg Tablet) 30 mg PO BID [facility]; Protocol Stop: 04/13/21 09:01 Phenobarbital (Phenobarbital 30 Mg Tablet) 30 mg PO DAILY [facility]; Protocol Stop: 04/15/21 09:01 Sodium Chloride (0.9 % Sodium Chloride Flush 3 Ml Syringe) 3 ml IVFLUSH QSHIFT [facility] Last Admin: 04/09/21 07:49 Dose: 3 ml Documented by: Thiamine HCl (Thiamine Hcl 100 Mg Tablet) 100 mg PO DAILY [facility] Last Admin: 04/09/21 09:55 Dose: 100 mg Documented by: Trazodone HCl (Trazodone Hcl 50 Mg Tablet) 50 mg PO BEDTIME PRN PRN Reason: Insomnia Home Medications Medication Instructions Recorded Confirmed Last Taken Type atorvastatin 40 mg tablet 1 tab PO BEDTIME 09/11/20 04/08/21 11/14/20 History gabapentin 400 mg capsule 1 cap PO TID 09/11/20 04/08/21 11/14/20 History metformin 1,000 mg tablet 1 tab PO BIDWM 09/11/20 04/08/21 11/14/20 History trazodone 50 mg tablet 1 tab PO BEDTIME PRN 09/11/20 04/08/21 11/01/20 History metoprolol tartrate 50 mg tablet 1 tab PO BID 11/16/20 04/08/21 11/14/20 History multivitamin 1 tab PO DAILY 11/16/20 04/08/21 11/14/20 History Physical Exam Vital Signs: Vital Signs: Last Vital Signs Temp 97.2 F 04/08/21 22:10 Pulse 105 H 04/09/21 09:55 Resp 26 H 04/09/21 07:44 BP 147/86 H 04/09/21 09:55 Pulse Ox 98 04/09/21 07:44 BMI result Body Mass Index 37.8 Const: General: no acute distress HENMT: Other: Unremarkable Neck: Neck: Yes normal visual inspection Chest: Chest palpation & inspection: normal inspection of the chest Resp: Other: few basal crackles Cardio: Palpation: normal PMI Heart sounds: S1 normal heart sound present, S2 normal heart sound present, no gallops, no murmurs and no rubs GI: Palpation (GI): Soft to palpation Back/Spine/Pelvis: Other: unremarkable Skin: Lesions: other Neuro: Cranial nerves: Yes Other cranial nerve findings present Extrem: General: Yes other Psych: Mental Status: other Objective Labs and Meds Result diagrams: 04/09/21 06:54 04/09/21 06:54 Lab results: Laboratory Results - last 24 hr 04/08/21 04/08/21 04/08/21 16:48 17:15 17:15 WBC 9.2 RBC 3.51 L Hgb 11.3 L Hct 33.6 L MCV 95.7 MCH 32.2 MCHC 33.6 RDW 14.4 Plt Count 94 L MPV 10.3 Immature Gran % (Auto) 0.4 Neut % (Auto) 81.5 H Lymph % (Auto) 9.5 L [place] % (Auto) 8.4 Eos % (Auto) 0.1 Baso % (Auto) 0.1 Lymph # (Auto) 0.9 L [place] # (Auto) 0.8 Eos # (Auto) 0.0 Baso # (Auto) 0.0 Abs Immat Gran (auto) 0.04 H Absolute Neuts (auto) 7.5 Absolute Nucleated RBC 0.000 Nucleated RBC % (auto) 0.0 PT 14.2 H INR 1.2 H D-Dimer High Sensitivty 1985 VBG pH VBG pCO2 VBG pO2 VBG HCO3 VBG O2 Saturation VBG Base Excess Sodium 139 Potassium 3.5 Chloride 102 Carbon Dioxide 25 Anion Gap 16 BUN 6 L Creatinine 0.63 Estim Creat Clear Calc 158.6 Estimated GFR > 60 POC Glucose Random Glucose 195 H Lactic Acid Lactic Acid F/U @ 2Hr Calcium 8.8 Phosphorus 2.3 L Magnesium 1.5 L Total Bilirubin 1.4 H AST 40 H ALT 37 Alkaline Phosphatase 91 Troponin I High Sens B-Natriuretic Peptide Total Protein 6.9 Albumin 3.6 Urine Color Urine Appearance Urine pH Ur Specific [place] Urine Protein Urine Glucose (UA) Urine Ketones Urine Blood Urine Nitrite Ur Leukocyte Esterase Urine RBC Urine WBC Ur Squamous Epith Cells Urine Bacteria Urine Opiates Screen Urine Fentanyl Screen Ur Barbiturates Screen Ur Phencyclidine Scrn Ur Amphetamines Screen U Benzodiazepines Scrn Urine Cocaine Screen U Marijuana (THC) Screen Ethyl Alcohol COVID-19 ([facility]) COVID-19 Clin Com 04/08/21 04/08/21 04/08/21 17:15 17:15 17:15 WBC RBC Hgb Hct MCV MCH MCHC RDW Plt Count MPV Immature Gran % (Auto) Neut % (Auto) Lymph % (Auto) [place] % (Auto) Eos % (Auto) Baso % (Auto) Lymph # (Auto) [place] # (Auto) Eos # (Auto) Baso # (Auto) Abs Immat Gran (auto) Absolute Neuts (auto) Absolute Nucleated RBC Nucleated RBC % (auto) PT INR D-Dimer High Sensitivty VBG pH VBG pCO2 VBG pO2 VBG HCO3 VBG O2 Saturation VBG Base Excess Sodium Potassium Chloride Carbon Dioxide Anion Gap BUN Creatinine Estim Creat Clear Calc Estimated GFR POC Glucose Random Glucose Lactic Acid 2.1 H* Lactic Acid F/U @ 2Hr Calcium Phosphorus Magnesium Total Bilirubin AST ALT Alkaline Phosphatase Troponin I High Sens 99.5 H B-Natriuretic Peptide 219 H Total Protein Albumin Urine Color Urine Appearance Urine pH Ur Specific [place] Urine Protein Urine Glucose (UA) Urine Ketones Urine Blood Urine Nitrite Ur Leukocyte Esterase Urine RBC Urine WBC Ur Squamous Epith Cells Urine Bacteria Urine Opiates Screen Urine Fentanyl Screen Ur Barbiturates Screen Ur Phencyclidine Scrn Ur Amphetamines Screen U Benzodiazepines Scrn Urine Cocaine Screen U Marijuana (THC) Screen Ethyl Alcohol 14 COVID-19 ([facility]) COVID-19 [employer] Com 04/08/21 04/08/21 04/08/21 17:20 17:26 19:48 WBC RBC Hgb Hct MCV MCH MCHC RDW Plt Count MPV Immature Gran % (Auto) Neut % (Auto) Lymph % (Auto) [place] % (Auto) Eos % (Auto) Baso % (Auto) Lymph # (Auto) [place] # (Auto) Eos # (Auto) Baso # (Auto) Abs Immat Gran (auto) Absolute Neuts (auto) Absolute Nucleated RBC Nucleated RBC % (auto) PT INR D-Dimer High Sensitivty VBG pH 7.48 H VBG pCO2 32 VBG pO2 83 VBG HCO3 24 VBG O2 Saturation 95.0 VBG Base Excess 1.5 Sodium Potassium Chloride Carbon Dioxide Anion Gap BUN Creatinine Estim Creat Clear Calc Estimated GFR POC Glucose Random Glucose Lactic Acid Lactic Acid F/U @ 2Hr Calcium Phosphorus Magnesium Total Bilirubin AST ALT Alkaline Phosphatase Troponin I High Sens B-Natriuretic Peptide Total Protein Albumin Urine Color YELLOW Urine Appearance CLEAR Urine pH 6.0 Ur Specific [place] 1.015 Urine Protein 2+ H Urine Glucose (UA) 250 H Urine Ketones 15 Urine Blood 2+ H Urine Nitrite NEG Ur Leukocyte Esterase NEG Urine RBC 10-14 H Urine WBC 0-2 Ur Squamous Epith Cells NONE Urine Bacteria NONE Urine Opiates Screen Urine Fentanyl Screen Ur Barbiturates Screen Ur Phencyclidine Scrn Ur Amphetamines Screen U Benzodiazepines Scrn Urine Cocaine Screen U Marijuana (THC) Screen Ethyl Alcohol COVID-19 ([facility]) Negative COVID-[employer] Com See Note 04/08/21 04/08/21 04/08/21 19:48 20:43 20:43 WBC RBC Hgb Hct MCV MCH MCHC RDW Plt Count MPV Immature Gran % (Auto) Neut % (Auto) Lymph % (Auto) [place] % (Auto) Eos % (Auto) Baso % (Auto) Lymph # (Auto) [place] # (Auto) Eos # (Auto) Baso # (Auto) Abs Immat Gran (auto) Absolute Neuts (auto) Absolute Nucleated RBC Nucleated RBC % (auto) PT INR D-Dimer High Sensitivty VBG pH VBG pCO2 VBG pO2 VBG HCO3 VBG O2 Saturation VBG Base Excess Sodium Potassium Chloride Carbon Dioxide Anion Gap BUN Creatinine Estim Creat Clear Calc Estimated GFR POC Glucose Random Glucose Lactic Acid Lactic Acid F/U @ 2Hr 1.5 Calcium Phosphorus Magnesium Total Bilirubin AST ALT Alkaline Phosphatase Troponin I High Sens 111.0 H* B-Natriuretic Peptide Total Protein Albumin Urine Color Urine Appearance Urine pH Ur Specific [place] Urine Protein Urine Glucose (UA) Urine Ketones Urine Blood Urine Nitrite Ur Leukocyte Esterase Urine RBC Urine WBC Ur Squamous Epith Cells Urine Bacteria Urine Opiates Screen Not Detected Urine Fentanyl Screen Not Detected Ur Barbiturates Screen Not Detected Ur Phencyclidine Scrn Not Detected Ur Amphetamines Screen Not Detected U Benzodiazepines Scrn Not Detected Urine Cocaine Screen Not Detected U Marijuana (THC) Screen Not Detected Ethyl Alcohol COVID-19 ([facility]) COVID-19 Clin Com 04/09/21 04/09/21 04/09/21 06:54 06:54 07:10 WBC 6.4 RBC 3.75 L Hgb 11.8 L Hct 36.1 L MCV 96.3 MCH 31.5 MCHC 32.7 RDW 14.6 Plt Count 94 L MPV 11.1 Immature Gran % (Auto) 0.8 H Neut % (Auto) 90.0 H Lymph % (Auto) 6.7 L [place] % (Auto) 2.3 Eos % (Auto) 0.0 Baso % (Auto) 0.2 Lymph # (Auto) 0.4 L [place] # (Auto) 0.2 Eos # (Auto) 0.0 Baso # (Auto) 0.0 Abs Immat Gran (auto) 0.05 H Absolute Neuts (auto) 5.8 Absolute Nucleated RBC 0.000 Nucleated RBC % (auto) 0.0 PT INR D-Dimer High Sensitivty VBG pH VBG pCO2 VBG pO2 VBG HCO3 VBG O2 Saturation VBG Base Excess Sodium 141 Potassium 3.8 Chloride 99 Carbon Dioxide 27 Anion Gap 19 BUN 12 D Creatinine 0.68 Estim Creat Clear Calc 146.9 Estimated GFR > 60 POC Glucose 284 H Random Glucose 278 H D Lactic Acid Lactic Acid F/U @ 2Hr Calcium 8.5 Phosphorus Magnesium Total Bilirubin AST ALT Alkaline Phosphatase Troponin I High Sens B-Natriuretic Peptide Total Protein Albumin Urine Color Urine Appearance Urine pH Ur Specific [place] Urine Protein Urine Glucose (UA) Urine Ketones Urine Blood Urine Nitrite Ur Leukocyte Esterase Urine RBC Urine WBC Ur Squamous Epith Cells Urine Bacteria Urine Opiates Screen Urine Fentanyl Screen Ur Barbiturates Screen Ur Phencyclidine Scrn Ur Amphetamines Screen U Benzodiazepines Scrn Urine Cocaine Screen U Marijuana (THC) Screen Ethyl Alcohol COVID-19 ([facility]) COVID-19 [employer] Com 04/09/21 04/09/21 09:46 12:19 WBC RBC Hgb Hct MCV MCH MCHC RDW Plt Count MPV Immature Gran % (Auto) Neut % (Auto) Lymph % (Auto) [place] % (Auto) Eos % (Auto) Baso % (Auto) Lymph # (Auto) [place] # (Auto) Eos # (Auto) Baso # (Auto) Abs Immat Gran (auto) Absolute Neuts (auto) Absolute Nucleated RBC Nucleated RBC % (auto) PT INR D-Dimer High Sensitivty VBG pH VBG pCO2 VBG pO2 VBG HCO3 VBG O2 Saturation VBG Base Excess Sodium Potassium Chloride Carbon Dioxide Anion Gap BUN Creatinine Estim Creat Clear Calc Estimated GFR POC Glucose 336 H 291 H Random Glucose Lactic Acid Lactic Acid F/U @ 2Hr Calcium Phosphorus Magnesium Total Bilirubin AST ALT Alkaline Phosphatase Troponin I High Sens B-Natriuretic Peptide Total Protein Albumin Urine Color Urine Appearance Urine pH Ur Specific [place] Urine Protein Urine Glucose (UA) Urine Ketones Urine Blood Urine Nitrite Ur Leukocyte Esterase Urine RBC Urine WBC Ur Squamous Epith Cells Urine Bacteria Urine Opiates Screen Urine Fentanyl Screen Ur Barbiturates Screen Ur Phencyclidine Scrn Ur Amphetamines Screen U Benzodiazepines Scrn Urine Cocaine Screen U Marijuana (THC) Screen Ethyl Alcohol COVID-19 ([facility]) COVID-19 Clin Com ECG Interpretation: EKG with atrial fibrillation at a rate of 118/Min with nonspecific ST-T changes. Cannot exclude old inferior or anterior infarct. Imaging Radiologist's impression: Impressions Chest X-Ray 04/08/21 17:41 IMPRESSION: Worsening pulmonary aeration with increased interstitial opacities and size of a right pleural effusion. Findings are indeterminate and could represent pulmonary edema or an atypical infection in the appropriate clinical setting. Chest CTA 04/08/21 19:59 IMPRESSION: Examination of the pulmonary arteries is degraded by motion and overlying airspace opacities. However, accounting for these limitations, no discrete pulmonary embolus is identified. No evidence of increased right-sided heart pressures. New patchy airspace opacities in the left lower lobe with improved patchy airspace opacities in the right lung. Increase pleural effusions and septal thickening bilaterally suggesting volume overload. Cardiomegaly. Suspect cirrhotic morphology of the liver. VTE: negative Venous Duplex 04/09/21 09:23 IMPRESSION: No DVT demonstrated in the bilateral lower extremity. The bilateral peroneal veins are not identified. There are bilateral calf varicosities. The right posterior tibial artery appears occluded. Assessment and Plan (1) Acute on chronic systolic (congestive) heart failure: Status: Acute (2) Atrial fibrillation with rapid ventricular response: Status: Inactive (3) Medical non-compliance: Status: Inactive (4) ETOH abuse: Status: Acute Symptoms are probably multifactorial with both infection as well as heart failure components. His care is suboptimal due to homelessness, alcohol abuse, poor comprehension, noncompliance among others. At this time, we can use diuretics for symptomatic relief. He seems to be also on empiric antibiotics. Beta-blockers for rate control. Due to lack of outpatient monitoring, digoxin might be difficult to use. Otherwise, based on last echocardiogram from earlier this year, LVEF was 10-15%; [id number] mitral regurgitation, elevated right atrial pressure as well as [id number] dilatation of ascending aorta at 4.3 cm. Elevated high sensitivity troponins are most likely from demand related leak. With regard to coronary status, he underwent PCI to distal RCA in 2016. At that time, he had occlusion of RPLV and moderate disease in LAD/RCA; severe disease in OM 2-medically managed but again due to noncompliance not on any meds consistently as outpatient. It seems that he might be taking them intermittently. If able, at least aspirin and some statins. Procedures Date of Service Date of Service: 04/09/21
--- NOTE | 2021-04-09 12:59 | MHC.CM.PN ---
CM ATTEMPTED TO SEE PT IN ED BED 17, PT SLEEPING CM TO RETURN
--- NOTE | 2021-04-09 13:01 | PM.EVENT ---
Event Note Date of Service: 04/09/21 Event Note: all information gleaned via automotive parts interpreter: 60-year-old homeless male admitted with shortness of breath that has been worsening over the past several days. Has a known history of chronic atrial fibrillation and CHF with severe cardiomyopathy and LV EF 15-20% by echo. Was seen by Cardiology, recommendations include Lasix, aspirin, statin. Also noted to have lower lobe infiltrate. All this in the backdrop of diabetes type 2 and poor compliance. Exam unchanged from admission. Will implement Cardiology recommendations and follow-up in a.m.
[2021-04-09 17:05] LABS: Glucose, Whole Blood 272 mg/dL (60-115)
--- NOTE | 2021-04-09 18:36 | MHC.RECOVSUP ---
Met with Pt seems to be in good spirit Wants to get in touch with the place that he used to live at States that he has some belongings there. I told him i'll try to find him the number to the place so he can call them Pt. is very concerned about his housing situation Wants to go back to the place he was staying before.I told him to reach out to case management maybe they can help him with this situation.
--- NOTE | 2021-04-09 18:53 | MHC.RECOVSUP ---
Was able to connect with the [facility]. Stevo heard that was on duty explained his situation and gave her his cell phone number. Staff on duty stated that she will call marcia.
[2021-04-09] MEDS: Atorvastatin Calcium 40 MG TABLET PO (20:15)
[2021-04-09] MEDS: PHENobarbitaL 15 MG TABLET 45 MG PO (20:15)
[2021-04-09] MEDS: traZODone HCL 50 MG TABLET PO (20:15)
[2021-04-09] MEDS: Acetaminophen 325 MG TABLET 650 MG PO (20:16)
[2021-04-09 20:28] LABS: Glucose, Whole Blood 298 mg/dL (60-115)
[2021-04-10] VITALS (8 sets, daily range): BP systolic 114–157; BP diastolic 66–82; PULSE 90–118; RESP 17–31; TEMP 36.1–37.1; O2SAT 97–99; BMI 37.4
[2021-04-10] MEDS: cefTRIAXone sodium 1 GM in 0.9 % Sodium Chloride 50 ML IV (01:40)
[2021-04-10] MEDS: Azithromycin 500 MG in 0.9 % Sodium Chloride 250 ML 125 MG IV (03:02)
[2021-04-10] MEDS: Furosemide 40 MG/4 ML VIAL IVPUSH ×2 (06:11→17:37)
[2021-04-10 06:28] LABS: MANUAL DIFF FLAG NO
[2021-04-10 06:40] LABS: Basophils Percent Auto 0.1 % (0-2); Eosinophils Percent Auto 0.1 % (0-4); Hematocrit 31.6 % (42.0-52.0); Hemoglobin 10.5 g/dl (14.0-18.0); Imm Gran Abs Auto 0.04 X10*3/uL (0.00-0.03); Imm Gran Pct Auto 0.5 % (0.0-0.4); Lymphocytes Absolute Auto 0.9 X10*3/uL (1.2-4.9); Lymphocytes Percent Auto 11.1 % (20-40); Mean Corpuscular HGB Conc 33.2 g/dl (31.0-36.0); Mean Corpuscular Hemoglobin 32.6 pg (27.0-33.0); Mean Corpuscular Volume 98.1 fL (80.0-98.0); Monocytes Absolute Auto 0.7 X10*3/uL (0.1-1.2); Monocytes Percent Auto 8.2 % (2-11); Neutrophils Absolute Auto 6.8 x10*3/uL (2.0-8.3); Platelet Count 103 X10*3/uL (160-400); Red Blood Count 3.22 X10*6/uL (4.60-5.80); Red Cell Distribution Width 14.6 % (11.0-16.0); White Blood Count 8.5 X10*3/uL (4.8-10.8)
[2021-04-10 07:02] LABS: Alanine Aminotransferase 25 U/L (0-40); Albumin Level 3.3 g/dL (3.5-5.0); Alkaline Phosphatase 72 U/L (39-117); Anion Gap 12 (12-20); Aspartate Amino Transferase 20 U/L (5-37); Bilirubin Total 0.9 mg/dL (0.0-1.0); Blood Urea Nitrogen 25 mg/dL (9-16); Calcium 8.3 mg/dL (8.4-10.2); Carbon Dioxide 31 mmol/L (22-29); Chloride 101 mmol/L (96-108); Creatinine Clr Calc Pharmacy 136.2; Estimated Glomerular Filt Rate > 60; Glucose Fasting 224 mg/dL (60-99); Potassium 3.5 mmol/L (3.3-5.1); Sodium 140 mmol/L (135-145); Total Protein 6.2 g/dL (6.5-8.0)
--- NOTE | 2021-04-10 07:54 | PHA.MEDREC ---
Pharmacy Consult ? Medication Reconciliation Pharmacy has reviewed the medication reconciliation. Med rec completed by [facility]. Sweta Hartmann, StanleyD
[2021-04-10 08:12] LABS: Glucose, Whole Blood 199 mg/dL (60-115)
[2021-04-10 08:13] LABS: Glucose, Whole Blood 211 mg/dL (60-115)
[2021-04-10] MEDS: 0.9 % Sodium Chloride Flush 3 ML SYRINGE IVFLUSH ×2 (08:23→15:19)
[2021-04-10] MEDS: PHENobarbitaL 15 MG TABLET 45 MG PO ×2 (08:24→20:32)
[2021-04-10] MEDS: Multivitamin TABLET 1 TAB PO (08:25)
[2021-04-10] MEDS: Aspirin Enteric Coated 81 MG TABLET.DR PO (08:25)
[2021-04-10] MEDS: Gabapentin 400 MG CAPSULE PO ×3 (08:26→20:32)
[2021-04-10] MEDS: Folic Acid 1 MG TABLET PO (08:26)
[2021-04-10] MEDS: Metoprolol Tartrate 50 MG TABLET PO ×2 (08:26→20:31)
[2021-04-10] MEDS: Thiamine HCL 100 MG TABLET PO (08:26)
[2021-04-10] MEDS: Enoxaparin Sodium 40 MG/0.4 ML SYRINGE SUBCUT (08:27)
[2021-04-10] MEDS: Insulin Glargine,Hum.rec.anlog 100 UNIT/ML 10 ML VIAL 8 UNIT SUBCUT (08:27)
[2021-04-10] MEDS: Insulin Lispro 100 UNIT/ML 3 ML VIAL SUBCUT ×7 (08:28→22:13)
--- NOTE | 2021-04-10 10:22 | MHC.CM.PN ---
with interpertator met with pt who reports that he is homeless he [facility] room [facility] [place] [facility] [address] [place] [address] he says mhe can not return to ..vague about reasons why not, he has been in a rehab in the past which he would consider..pt will nned pt eval hcp on chart pt is vacc with chari
[2021-04-10 11:56] LABS: Glucose, Whole Blood 259 mg/dL (60-115)
[2021-04-10 15:26] LABS: Glucose, Whole Blood 234 mg/dL (60-115)
[2021-04-10 16:41] LABS: Glucose, Whole Blood 175 mg/dL (60-115)
--- NOTE | 2021-04-10 17:03 | P.PNIM_ITS ---
Subjective Subjective Date of Service: 04/10/21 Interval History: notes improvement since admission. No acute events overnight Review of Systems denies chest pain Denies shortness of breath Denies nausea vomiting diarrhea Physical Exam Vital Signs: Vital Signs: Last Vital Signs Temp 98.2 F 04/10/21 15:17 Pulse 105 H 04/10/21 15:17 Resp 20 04/10/21 15:17 BP 157/72 H 04/10/21 15:17 Pulse Ox 99 04/10/21 15:17 BMI result Body Mass Index 37.4 Const: Other: no acute distress; resting comfortably Resp: Other: clear to auscultation no Cardio: Other: no S4; positive S1-S2; no S3 murmurs rubs or gallops GI: Other: soft nontender nondistended with normoactive bowel sounds x4 quadrants Extrem: Other: trace edema bilaterally Objective Data Active Medications Acetaminophen (Acetaminophen 325 Mg Tablet) 650 mg PO Q6H PRN PRN Reason: Pain, Mild (Pain Scale 1-3) Last Admin: 04/09/21 20:16 Dose: 650 mg Documented by: EMEKA Aspirin (Aspirin Enteric Coated 81 Mg Tablet.) 81 mg PO DAILY [facility] Last Admin: 04/10/21 08:25 Dose: 81 mg Documented by: TAWNYA Atorvastatin Calcium (Atorvastatin Calcium 40 Mg Tablet) 40 mg PO BEDTIME [facility] Last Admin: 04/09/21 20:15 Dose: 40 mg Documented by: EMEKA Dextrose (Dextrose 50 % 25 Gm/50 Ml Vial) 25 gm IVPUSH Q15M PRN; Protocol PRN Reason: per Hypoglycemia Standing Ord. Docusate Sodium (Docusate Sodium 100 Mg Capsule) 100 mg PO DAILY PRN PRN Reason: Constipation Enoxaparin Sodium (Enoxaparin Sodium 40 Mg/0.4 Ml Syringe) 40 mg SUBCUT Q24H [facility] Last Admin: 04/10/21 08:27 Dose: 40 mg Documented by: TAWNYA Folic Acid (Folic Acid 1 Mg Tablet) 1 mg PO DAILY [facility] Last Admin: 04/10/21 08:26 Dose: 1 mg Documented by: TAWNYA Furosemide (Furosemide 40 Mg/4 Ml Vial) 40 mg IVPUSH Q12H [facility]ANK[facility]; Protocol Last Admin: 04/10/21 06:11 Dose: 40 mg Documented by: EMEKA Gabapentin (Gabapentin 400 Mg Capsule) 400 mg PO TID [facility] Last Admin: 04/10/21 15:18 Dose: 400 mg Documented by: TAWNYA Glucose (Glucose Gel 15 Gm Gel..Gram.) 15 gm PO Q15M PRN; Protocol PRN Reason: per Hypoglycemia Standing Ord. Ceftriaxone Sodium 1 gm/ (Sodium Chloride) 50 mls @ 100 mls/hr IV Q24H [facility] Last Infusion: 04/10/21 03:05 Dose: 0 mls/hr Documented by: EMEKA Azithromycin 500 mg/ Sodium (Chloride) 250 mls @ 125 mls/hr IV Q24H [facility] Last Infusion: 04/10/21 06:06 Dose: 0 mls/hr Documented by: EMEKA Insulin Glargine (Insulin Glargine,Hum.Rec.Anlog 100 Unit/Ml 10 Ml Vial) 8 unit SUBCUT DAILY [facility] Last Admin: 04/10/21 08:27 Dose: 8 unit Documented by: TAWNYA Insulin Human Lispro (Insulin Lispro 100 Unit/Ml 3 Ml Vial) 5 unit SUBCUT TID [facility] Last Admin: 04/10/21 15:17 Dose: 5 unit Documented by: TAWNYA Insulin Human Lispro (Insulin Lispro 100 Unit/Ml 3 Ml Vial) 0 unit SUBCUT QIDACHS [facility]; Protocol Last Admin: 04/10/21 16:51 Dose: 2 unit Documented by: DOBROB Medication (No Benzodiazepines) 1 each MISCELLANE DAILY [facility] Metoprolol Tartrate (Metoprolol Tartrate 50 Mg Tablet) 50 mg PO BID [facility]; Protocol Last Admin: 04/10/21 08:26 Dose: 50 mg Documented by: TAWNYA Multivitamins/Vitamin C (Multivitamin Tablet) 1 tab PO DAILY [facility] Last Admin: 04/10/21 08:25 Dose: 1 tab Documented by: TAWNYA Ondansetron HCl (Ondansetron Hcl 4 Mg/2 Ml Vial) 4 mg IVPUSH Q8H PRN PRN Reason: Nausea and Vomiting Phenobarbital (Phenobarbital 15 Mg Tablet) 45 mg PO BID [facility]; Protocol Stop: 04/11/21 09:01 Last Admin: 04/10/21 08:24 Dose: 45 mg Documented by: TAWNYA Phenobarbital (Phenobarbital 30 Mg Tablet) 30 mg PO BID [facility]; Protocol Stop: 04/13/21 09:01 Phenobarbital (Phenobarbital 30 Mg Tablet) 30 mg PO DAILY [facility]; Protocol Stop: 04/15/21 09:01 Sodium Chloride (0.9 % Sodium Chloride Flush 3 Ml Syringe) 3 ml IVFLUSH QSHIFT [facility] Last Admin: 04/10/21 15:19 Dose: 3 ml Documented by: TAWNYA Thiamine HCl (Thiamine Hcl 100 Mg Tablet) 100 mg PO DAILY [facility] Last Admin: 04/10/21 08:26 Dose: 100 mg Documented by: TAWNYA Trazodone HCl (Trazodone Hcl 50 Mg Tablet) 50 mg PO BEDTIME PRN PRN Reason: Insomnia Last Admin: 04/09/21 20:15 Dose: 50 mg Documented by: EMEKA Labs CBC & Chem 7: 04/10/21 05:59 04/10/21 05:59 Labs: Laboratory Results - last 24 hr 04/09/21 04/09/21 04/10/21 17:01 20:23 05:59 MCV 98.1 H MCH 32.6 MCHC 33.2 RDW 14.6 Plt Count 103 L MPV 11.0 Immature Gran % (Auto) 0.5 H Neut % (Auto) 80.0 H Lymph % (Auto) 11.1 L [place] % (Auto) 8.2 Eos % (Auto) 0.1 Baso % (Auto) 0.1 Lymph # (Auto) 0.9 L [place] # (Auto) 0.7 Eos # (Auto) 0.0 Baso # (Auto) 0.0 Abs Immat Gran (auto) 0.04 H Absolute Neuts (auto) 6.8 Absolute Nucleated RBC 0.000 Nucleated RBC % (auto) 0.0 Anion Gap Estim Creat Clear Calc Estimated GFR POC Glucose 272 H 298 H Fasting Glucose Calcium Total Bilirubin AST ALT Alkaline Phosphatase Total Protein Albumin 04/10/21 04/10/21 04/10/21 05:59 07:54 08:07 MCV MCH MCHC RDW Plt Count MPV Immature Gran % (Auto) Neut % (Auto) Lymph % (Auto) [place] % (Auto) Eos % (Auto) Baso % (Auto) Lymph # (Auto) [place] # (Auto) Eos # (Auto) Baso # (Auto) Abs Immat Gran (auto) Absolute Neuts (auto) Absolute Nucleated RBC Nucleated RBC % (auto) Anion Gap 12 Estim Creat Clear Calc 136.2 Estimated GFR > 60 POC Glucose 211 H 199 H Fasting Glucose 224 H Calcium 8.3 L Total Bilirubin 0.9 AST 20 D ALT 25 Alkaline Phosphatase 72 D Total Protein 6.2 L Albumin 3.3 L 04/10/21 04/10/21 04/10/21 11:51 15:16 16:30 MCV MCH MCHC RDW Plt Count MPV Immature Gran % (Auto) Neut % (Auto) Lymph % (Auto) [place] % (Auto) Eos % (Auto) Baso % (Auto) Lymph # (Auto) [place] # (Auto) Eos # (Auto) Baso # (Auto) Abs Immat Gran (auto) Absolute Neuts (auto) Absolute Nucleated RBC Nucleated RBC % (auto) Anion Gap Estim Creat Clear Calc Estimated GFR POC Glucose 259 H 234 H 175 H Fasting Glucose Calcium Total Bilirubin AST ALT Alkaline Phosphatase Total Protein Albumin Microbiology Microbiology Results: Microbiology 04/08/21 17:33 Blood Culture - Preliminary Blood - Venous No growth after 24 hours. 04/08/21 17:33 Blood Culture - Preliminary Blood - Venous No growth after 24 hours. Assessment and Plan (1) Acute on chronic systolic (congestive) heart failure: Status: Acute (2) Alcohol abuse with withdrawal: Status: Acute Assessment and Plan: Is a 60-year-old male with past medical history of diabetes, HTN, CHF with reduced ejection fraction, presents the hospital with difficulty breathing found to have CHF as well as pneumonia.History of chronic atrial fibrillation as well as congestive heart failure.? He has severe cardiomyopathy with LVEF in the 15- 20% range.? 1. Acute on chronic systolic CHF IV diuresis with Lasix.....good response. Continue same. Check Creat/Divalents in am 2.Community-acquired pneumonia Continue Azithro/CTX. Switch to Ceftin upon D/C 3. AFib with controlled VRR Given reduced LVEF...if SNF will consider digoxin 4. EToH withdraw CIWA 2...continue protocoll 5.DMII Continue SSRI...Adjust as indicated DVT prophylaxis: Lovenox Quality Stroke Does the patient have a stroke diagnosis?: No VTE Prior VTE?: No VTE Risk Level:: Medical - moderate - high VTE Device Contraindication: Treatment Not Indicated VTE Drug Contraindication: N/A - Med Ordered
[2021-04-10] MEDS: Atorvastatin Calcium 40 MG TABLET PO (20:32)
[2021-04-10 21:01] LABS: Glucose, Whole Blood 247 mg/dL (60-115)
[2021-04-10] MEDS: traZODone HCL 50 MG TABLET PO (22:13)
[2021-04-11] MEDS: 0.9 % Sodium Chloride Flush 3 ML SYRINGE IVFLUSH ×2 (00:28→07:45)
[2021-04-11] MEDS: cefTRIAXone sodium 1 GM in 0.9 % Sodium Chloride 50 ML IV (02:16)
[2021-04-11] MEDS: Azithromycin 500 MG in 0.9 % Sodium Chloride 250 ML 125 MG IV (02:42)
[2021-04-11 04:00] VITALS: BP 121/77; PULSE 85; RESP 20; TEMP 37; O2SAT 97
[2021-04-11 06:00] VITALS: BMI 38.2
[2021-04-11] MEDS: Furosemide 40 MG/4 ML VIAL IVPUSH (06:05)
[2021-04-11 06:26] LABS: MANUAL DIFF FLAG NO
[2021-04-11 06:41] LABS: Basophils Percent Auto 0.3 % (0-2); Eosinophils Absolute Auto 0.1 X10*3/uL (0.0-0.4); Eosinophils Percent Auto 1.2 % (0-4); Hematocrit 32.7 % (42.0-52.0); Hemoglobin 10.6 g/dl (14.0-18.0); Imm Gran Abs Auto 0.05 X10*3/uL (0.00-0.03); Imm Gran Pct Auto 0.8 % (0.0-0.4); Lymphocytes Absolute Auto 0.9 X10*3/uL (1.2-4.9); Lymphocytes Percent Auto 13.6 % (20-40); Mean Corpuscular HGB Conc 32.4 g/dl (31.0-36.0); Mean Corpuscular Hemoglobin 32.1 pg (27.0-33.0); Mean Corpuscular Volume 99.1 fL (80.0-98.0); Mean Platelet Volume 10.4 fL (9.4-12.4); Monocytes Absolute Auto 0.6 X10*3/uL (0.1-1.2); Monocytes Percent Auto 8.3 % (2-11); Neutrophils Percent Auto 75.8 % (45-73); Red Cell Distribution Width 14.6 % (11.0-16.0); White Blood Count 6.6 X10*3/uL (4.8-10.8)
[2021-04-11 06:55] LABS: Platelet Count 92 X10*3/uL (160-400)
[2021-04-11 07:03] LABS: Alanine Aminotransferase 36 U/L (0-40); Albumin Level 3.3 g/dL (3.5-5.0); Alkaline Phosphatase 81 U/L (39-117); Anion Gap 12 (12-20); Aspartate Amino Transferase 40 U/L (5-37); Bilirubin Total 1.1 mg/dL (0.0-1.0); Blood Urea Nitrogen 15 mg/dL (9-16); Calcium 8.1 mg/dL (8.4-10.2); Carbon Dioxide 32 mmol/L (22-29); Chloride 98 mmol/L (96-108); Creatinine Clr Calc Pharmacy 143.7; Estimated Glomerular Filt Rate > 60; Glucose Fasting 184 mg/dL (60-99); Potassium 3.3 mmol/L (3.3-5.1); Sodium 139 mmol/L (135-145); Total Protein 6.3 g/dL (6.5-8.0)
[2021-04-11 07:22] VITALS: BP 135/89; PULSE 103; RESP 22; TEMP 36.7; O2SAT 98
[2021-04-11] MEDS: Insulin Lispro 100 UNIT/ML 3 ML VIAL SUBCUT ×4 (07:42→16:35)
[2021-04-11 07:53] LABS: Glucose, Whole Blood 160 mg/dL (60-115)
[2021-04-11] MEDS: Insulin Glargine,Hum.rec.anlog 100 UNIT/ML 10 ML VIAL 8 UNIT SUBCUT (09:47)
[2021-04-11 09:48] VITALS: BP 135/89; PULSE 103
[2021-04-11] MEDS: Metoprolol Tartrate 50 MG TABLET PO (09:48)
[2021-04-11] MEDS: Enoxaparin Sodium 40 MG/0.4 ML SYRINGE SUBCUT (09:48)
[2021-04-11] MEDS: Gabapentin 400 MG CAPSULE PO ×2 (09:48→16:34)
[2021-04-11] MEDS: Aspirin Enteric Coated 81 MG TABLET.DR PO (09:48)
[2021-04-11] MEDS: Multivitamin TABLET 1 TAB PO (09:49)
[2021-04-11] MEDS: Folic Acid 1 MG TABLET PO (09:49)
[2021-04-11] MEDS: PHENobarbitaL 15 MG TABLET 45 MG PO (09:49)
[2021-04-11] MEDS: Thiamine HCL 100 MG TABLET PO (09:49)
[2021-04-11 10:53] VITALS: BP 135/89; PULSE 103
[2021-04-11 11:00] VITALS: BP 132/66; PULSE 95; RESP 20; TEMP 36.9; O2SAT 100
[2021-04-11 11:27] LABS: Glucose, Whole Blood 236 mg/dL (60-115)
--- NOTE | 2021-04-11 12:27 | P.DS_ITS ---
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 Patient reports that he has been homeless and has not been able to be compliant with his medication.? He has been having difficulty breathing for the past 1 week, he has had fever and chills, headache, leg swelling, orthopnea as well as PND, some nausea vomiting that has now resolved.? He had diarrhea that has now resolved.? denies any chest pain at this time, no palpitations, no abdominal pain, no urinary symptoms.? On arrival to the ED patient's vitals significant for temp of 99.2?, heart rate of 127, respiratory rate of 48, satting 96 on room air Labs were found to be significant for WBC count 9.2, hemoglobin of 11.3, PT of 14.2, INR of 1.2, lactic acid of 2.1, phos of 2.3, magnesium of 1.1, BNP of 219, UA that is positive for blood and RBC no evidence of infection and UA Chest CT angiogram shows no discrete PE seen but patient has new patchy airspace opacities in the left lower lobe with improved patchy airspace opacity in the right.? Increased pleural effusion and septal thickening bilaterally suggesting volume overload. Hospital Course Admitted to telemetry; started on ceftriaxone and azithromycin. seen in consultation by Cardiology; felt the symptoms are multifactorial with postinfectious and heart failure components. Given his homelessness and history of alcohol use his care at been suboptimal. Compliance and understanding or issues. He was diuresed with IV Lasix b.i.d. and responded well to therapies. His last echocardiogram earlier this year demonstrated an LVEF of 10-15%. Through records, coronary artery disease as history status post PCI to distal RCA in 2016. No documented follow-up. At this time, he has responded well to therapies and will be discharged on oral Lasix and beta blockade. He carries a history of diabetes type 2; and his medicines were restarted. They can be adjusted by receiving physicians. His history of AFib is longstanding, and he was never anticoagulated secondary to poor compliance. Again anticoagulation can be instituted at the discretion of the receiving physician. At this time is medically suitable for [facility] and can follow up with Cardiology in from there. Time Spent with Patient Time attestation: Total time spent providing and/or coordinating discharge services: Discharge coordination time: Greater than 30 minutes Quality: Stroke Does the patient have a stroke diagnosis?: No Physical Exam Vital Signs: Vital Signs: Last Vital Signs Temp 98.5 F 04/11/21 11:00 Pulse 95 04/11/21 11:00 Resp 20 04/11/21 11:00 BP 132/66 04/11/21 11:00 Pulse Ox 100 04/11/21 11:00 BMI result Body Mass Index 38.2 Const: Other: no acute distress; resting comfortably Resp: Other: clear to auscultation no Cardio: Other: no S4; positive S1-S2; no S3 murmurs rubs or gallops GI: Other: soft nontender nondistended with normoactive bowel sounds x4 quadrants Extrem: Other: trace edema bilaterally DS: Data Data Completed and Pending Completed studies during hospitalization [Text1]: Procedures Detoxification Services for Substance Abuse Treatment (11/16/20) Labs on day of discharge: Laboratory Results - last 24 hr 04/10/21 04/10/21 04/10/21 15:16 16:30 20:51 WBC RBC Hgb Hct MCV MCH MCHC RDW Plt Count MPV Immature Gran % (Auto) Neut % (Auto) Lymph % (Auto) [place] % (Auto) Eos % (Auto) Baso % (Auto) Lymph # (Auto) [place] # (Auto) Eos # (Auto) Baso # (Auto) Abs Immat Gran (auto) Absolute Neuts (auto) Absolute Nucleated RBC Nucleated RBC % (auto) Sodium Potassium Chloride Carbon Dioxide Anion Gap BUN Creatinine Estim Creat Clear Calc Estimated GFR POC Glucose 234 H 175 H 247 H Fasting Glucose Calcium Total Bilirubin AST ALT Alkaline Phosphatase Total Protein Albumin 04/11/21 04/11/21 04/11/21 05:56 05:56 07:21 WBC 6.6 RBC 3.30 L Hgb 10.6 L Hct 32.7 L MCV 99.1 H MCH 32.1 MCHC 32.4 RDW 14.6 Plt Count 92 L MPV 10.4 Immature Gran % (Auto) 0.8 H Neut % (Auto) 75.8 H Lymph % (Auto) 13.6 L [place] % (Auto) 8.3 Eos % (Auto) 1.2 Baso % (Auto) 0.3 Lymph # (Auto) 0.9 L [place] # (Auto) 0.6 Eos # (Auto) 0.1 Baso # (Auto) 0.0 Abs Immat Gran (auto) 0.05 H Absolute Neuts (auto) 5.0 Absolute Nucleated RBC 0.000 Nucleated RBC % (auto) 0.0 Sodium 139 Potassium 3.3 Chloride 98 Carbon Dioxide 32 H Anion Gap 12 BUN 15 Creatinine 0.70 Estim Creat Clear Calc 143.7 Estimated GFR > 60 POC Glucose 160 H Fasting Glucose 184 H Calcium 8.1 L Total Bilirubin 1.1 H AST 40 H D ALT 36 Alkaline Phosphatase 81 Total Protein 6.3 L Albumin 3.3 L 04/11/21 11:00 WBC RBC Hgb Hct MCV MCH MCHC RDW Plt Count MPV Immature Gran % (Auto) Neut % (Auto) Lymph % (Auto) [place] % (Auto) Eos % (Auto) Baso % (Auto) Lymph # (Auto) [place] # (Auto) Eos # (Auto) Baso # (Auto) Abs Immat Gran (auto) Absolute Neuts (auto) Absolute Nucleated RBC Nucleated RBC % (auto) Sodium Potassium Chloride Carbon Dioxide Anion Gap BUN Creatinine Estim Creat Clear Calc Estimated GFR POC Glucose 236 H Fasting Glucose Calcium Total Bilirubin AST ALT Alkaline Phosphatase Total Protein Albumin Preliminary micro results at discharge 04/08/21 17:33 Blood Culture - Preliminary Blood - Venous No growth after 48 hours. 04/08/21 17:33 Blood Culture - Preliminary Blood - Venous No growth after 48 hours. Discharge Plan Discharge Patient Disposition: Xfer Inpatient Rehab Fac Discharge Diagnosis: acute on chronic systolic CHF Referrals: [facility] [Other] - 1 Week Vikki Torrez MD [Primary Care Provider] - 1 Week Discharge Medications: New cefuroxime axetil 500 mg tablet 500 mg PO BID 10 Days Qty: 20 RF: 0 Continued multivitamin Tablet 1 tab PO DAILY RF: 0 metoprolol tartrate 50 mg tablet 1 tab PO BID RF: 0 Lantus U-100 Insulin 100 unit/mL Solution 8 unit subcut DAILY Qty: 10 RF: 0 insulin lispro 100 unit/mL solution 5 unit subcut TID Qty: 10 RF: 0 atorvastatin 40 mg tablet 1 tab PO BEDTIME RF: 0 trazodone 50 mg tablet 1 tab PO BEDTIME PRN (Reason: Insomnia) RF: 0 gabapentin 400 mg capsule 1 cap PO TID RF: 0 metformin 1,000 mg tablet 1 tab PO BIDWM RF: 0 furosemide [Lasix] 40 mg tablet 40 mg PO BID 30 Days Qty: 60 RF: 0 aspirin 81 mg Tablet,Delayed Release (Dr/Ec) 81 mg PO DAILY Qty: 30 RF: 0 folic acid 1 mg Tablet 1 mg PO DAILY Qty: 30 RF: 0 thiamine mononitrate (vit B1) 100 mg Tablet 100 mg PO DAILY Qty: 30 RF: 0 Discharge Orders: Discharge Order (Routine); Ordered 04/11/21 Ordered By: Filemon Corona Diet: advance to usual diet Activity on Discharge: As tolerated Stand Alone Forms: Patient Portal Discharge page Care Plan Goals: as ordered Health Concerns: as per [facility] Plan of Treatment: as peripheral Assessment: see above
--- NOTE | 2021-04-11 15:30 | MHC.CM.PN ---
pt to be dcd to [facility] today by estee pending coid collection
[2021-04-11 15:53] LABS: COVID-19 Test Negative (Negative); IDNOW Serial# 9DD0AD1C
== END 2021-04-11 17:46 | DRG 193 ==
LOC: HO.ED 04-09 00:56 → HO.EDOVER 04-09 01:59 → HO.IMC 04-09 15:18
PROVIDERS: Physician Assistant; Admitting Provider Internal Medicine; Emergency Provider Emergency Medicine; PCP Family Medicine; Visit Provider Hospitalist
DX: J18.9 Pneumonia, unspecified organism (principal); I50.23 Acute on chronic systolic (congestive) heart failure; E87.2 Acidosis; I42.9 Cardiomyopathy, unspecified; I48.20 Chronic atrial fibrillation, unspecified; F10.230 Alcohol dependence with withdrawal, uncomplicated; Z20.822 Contact with and (suspected) exposure to COVID-19; F17.210 Nicotine dependence, cigarettes, uncomplicated; Z71.6 Tobacco abuse counseling; I25.10 Atherosclerotic heart disease of native coronary artery without angina pectoris; E83.42 Hypomagnesemia; I83.12 Varicose veins of left lower extremity with inflammation; E83.39 Other disorders of phosphorus metabolism; I83.11 Varicose veins of right lower extremity with inflammation; K70.30 Alcoholic cirrhosis of liver without ascites; E11.9 Type 2 diabetes mellitus without complications; I11.0 Hypertensive heart disease with heart failure; F32.A Depression, unspecified; Z91.19 Patient's noncompliance with other medical treatment and regimen; Z59.01 Sheltered homelessness; R09.02 Hypoxemia; Z95.5 Presence of coronary angioplasty implant and graft; Z88.0 Allergy status to penicillin; Z79.4 Long term (current) use of insulin; Z79.82 Long term (current) use of aspirin; Z79.84 Long term (current) use of oral hypoglycemic drugs; Z79.899 Other long term (current) drug therapy
CPT/HCPCS: 36415; 71045; 71046; 71275; 80048; 80053; 80307; 81001; 82077; 82803; 82947; 83605; 83735; 83880; 84100; 84484; 85025; 85379; 85610; 87040; 87635; 93005; 93970; 94640; 94660; 96360; 96361; 96374; 96375; 97110; 97116; 97162; 99284; 99285; J0456; J0696; J1650; J1940; J2060; J2560; J2930; J3475; Q9967

== ENCOUNTER 2021-10-26 00:19 | Inpatient (IN) | payer MEDICARE, MEDICAID, SELFPAY ==
[2021-10-26] VITALS (11 sets, daily range): BP systolic 121–147; BP diastolic 79–98; PULSE 98–118; RESP 13–22; TEMP 36.6–37; O2SAT 95–100; BMI 34.0
--- NOTE | ~2021-10-26 | US_ITS ---
EXAMINATION: US VENOUS ULTRASOUND WITH DOPPLER LOWER EXTREMITY, BILATERAL CLINICAL INFORMATION: Lower extremity edema COMPARISON: Lower extremity DVT 04/09/2021 TECHNIQUE: Ultrasound of the deep veins is performed from the hip to the calf with compression sonography and color and pulse Doppler assessment. Spectral analysis with color-flow imaging is performed. Exam is technically challenging due to habitus. FINDINGS: RIGHT: There is normal venous compression and respiratory variation and augmented flow. The visualized common femoral vein, superficial femoral vein, profunda femoral vein, popliteal vein, and the posterior tibial vein shows no evidence of deep venous thrombosis. Peroneal vein was not identified. There is no significant popliteal fossa cyst. Mild subcutaneous edema in the calf. LEFT: There is normal venous compression and respiratory variation and augmented flow. The visualized common femoral vein, superficial femoral vein, profunda femoral vein, popliteal vein, and the posterior tibial vein shows no evidence of deep venous thrombosis. Peroneal vein was not identified. There is no significant popliteal fossa cyst. Mild subcutaneous edema in the calf. If the patient's symptoms persist, followup ultrasound in 5 days 7 days might be of value to exclude proximal propagation from a non-visualized calf vein. US/US venous duplex LE BI IMPRESSION: No DVT demonstrated in the bilateral lower extremity where visualized, however peroneal veins were not identified bilaterally. Mild subcutaneous edema in the calves bilaterally.
--- NOTE | ~2021-10-26 | XR_ITS ---
EXAMINATION: XR CHEST CLINICAL INFORMATION: Cough COMPARISON: 04/08/2021 TECHNIQUE: Frontal view of the chest was obtained. FINDINGS: The lungs are well expanded. Diffuse bronchial wall thickening. No dense consolidation. No effusion. No pneumothorax. The cardiomediastinal silhouette remains somewhat prominent with a calcified aorta. XR/XR chest 1V IMPRESSION: Bronchial wall thickening present favoring a small airways process such as asthma or atypical/viral infection. Fluid overload also possible.
--- NOTE | 2021-10-26 00:28 | ECG_ITS ---
Test Reason : CHF Blood Pressure : / mmHG Vent. Rate : 105 BPM Atrial Rate : 000 BPM P-R Int : 000 ms QRS Dur : 102 ms QT Int : 372 ms P-R-T Axes : 000 -66 074 degrees QTc Int : 491 ms Atrial fibrillation with rapid ventricular response Left axis deviation Low voltage QRS Inferior infarct (cited on or before 02-JUL-2016) Cannot rule out Anterior infarct (cited on or before 02-JUL-2016) Abnormal ECG When compared with ECG of 08-APR-2021 16:18, Nonspecific T wave abnormality no longer evident in Inferior leads Nonspecific T wave abnormality, worse in Lateral leads Referred By: Kayla Su Electronically Signed By:David Ernandez
--- NOTE | 2021-10-26 00:43 | ED.GENADULT ---
HPI - General Adult General Chief complaint: Extremity Problem Stated complaint: no leg swelling,h/o chf per ems Time Seen by Provider: 10/26/21 00:28 Source: patient and EMS Mode of arrival: EMS History of Present Illness HPI narrative: 60-year-old male with history of alcohol dependency as well as hypertension, diabetes, cirrhosis and history of alcohol withdrawal. He is brought in by EMS for being found [place] police department [place] the [place] and admitting to having consumed alcohol at approximately 23:00 last night and reports multiple beers in nips. Patient complains of bilateral lower leg swelling and states he has been unable to take his medications due to being homeless. He states he is having chills but denies any nausea, vomiting, chest pain/palpitations, abdominal pain but reports he does have difficulty walking due to the size of his lower extremities. Related Data Home Medications Medication Instructions Recorded Confirmed atorvastatin 40 mg tablet 1 tab PO BEDTIME 09/11/20 04/08/21 gabapentin 400 mg capsule 1 cap PO TID 09/11/20 04/08/21 metformin 1,000 mg tablet 1 tab PO BIDWM 09/11/20 04/08/21 trazodone 50 mg tablet 1 tab PO BEDTIME PRN Insomnia 09/11/20 04/08/21 metoprolol tartrate 50 mg tablet 1 tab PO BID 11/16/20 04/08/21 multivitamin 1 tab PO DAILY 11/16/20 04/08/21 Previous Rx's Medication Instructions Recorded furosemide 40 mg tablet (Lasix) 40 mg PO BID 30 days #60 tabs 09/14/20 aspirin 81 mg tablet,delayed 81 mg PO DAILY #30 tabs 11/04/20 release folic acid 1 mg tablet 1 mg PO DAILY #30 tabs 11/04/20 thiamine mononitrate (vit B1) 100 100 mg PO DAILY #30 tabs 11/04/20 mg tablet insulin glargine 100 unit/mL 8 unit (0.08 mL) subcut DAILY #10 11/20/20 subcutaneous solution (Lantus mL U-100 Insulin) insulin lispro 100 unit/mL 5 unit (0.05 mL) subcut TID #10 mL 12/02/20 subcutaneous solution cefuroxime axetil 500 mg tablet 500 mg PO BID 10 days #20 tabs 04/11/21 Allergies Allergy/AdvReac Type Severity Reaction Status Date / Time Penicillins [PCN] Allergy Unknown UNKNOWN Verified 04/08/21 16:26 Review of Systems Review of Systems: Pertinent positives and negatives as stated in HPI 10 point review of systems is otherwise negative. [facility] Past Medical History Source: nursing notes reviewed Medical History A-fib Acute on chronic combined systolic and diastolic congestive heart failure Alcohol use disorder, severe, dependence Alcoholic intoxication Atrial fibrillation, rapid CAD (coronary artery disease) Cardiomyopathy CHF (congestive heart failure) Cirrhosis Depression Diabetes ETOH abuse HTN (hypertension) Hyperglycemia Family History Family History Other Diabetes Social History Social History Household Members: None Housing: Homeless Housing Other:: rents room Do you presently have visiting nurse or other home services: No Unable to assess alcohol history related to: Refusing to respond Alcohol intake: current Alcohol intake frequency: 3 or more drinks per day Alcohol type: beer and hard liquor Patient Tobacco Use Status: Current someday Tobacco user Tobacco use type: Cigarette Cigarettes Per Day: 2 Second Hand Smoke Exposure: No Advance Directives: No service: No Current occupational status: unemployed and disabled Physical Exam ED Vital Signs: Vital Signs - 24 hr 10/26/21 00:28 10/26/21 00:32 10/26/21 02:52 Temperature 98.6 F 98.6 F Pulse Rate 115 H 118 H 98 Respiratory Rate 22 H 16 Blood Pressure 147/91 H 147/91 H 135/89 Pulse Oximetry 100 99 99 Oxygen Delivery Method Room Air Room Air Room Air BMI result Body Mass Index 34.0 VITAL SIGNS: Reviewed. GENERAL: Well nourished, in no acute distress. HEAD: Normocephalic/atraumatic EYES: PERRLA, EOMI EARS: Ext canals without abnormality OROPHARYNX: no oral lesions noted, posterior pharynx clear NECK: Supple, no adenopathy LUNGS: Good inspiratory effort with bibasilar rales, no wheeze/rhonchi noted. SpO2<100> CARDIOVASCULAR: Regular rate and rhythm without noted murmurs, no JVD with bilateral lower extremity edema that is 2 to 3+ pitting with chronic changes and the pitting edema extends up into bilateral midthigh ABDOMEN: Soft, non-tender, non-distended with bowel sounds. No rigidity. No guarding. No palpable masses or hernias noted MUSCULOSKELETAL: No tenderness, deformities, or effusions noted on gross inspection. EXTREMITIES: No cyanosis, clubbing, but is bilateral skin breakdown with surrounding erythema SKIN: Inspection of the skin reveals no rashes NEUROLOGIC: Alert and oriented x 4. Strength and sensation to light touch were grossly intact x 4. Course Course Course Narrative: 60-year-old male with history and clinical presentation of alcohol intoxication and suspect a component of CHF exacerbation but lower clinical suspicion for cellulitis. Review of all investigations consistent with CHF exacerbation as patient is also requiring supplemental oxygen, and although the BNP is noted to be low patient clinically has rales with pitting edema as well as chest x-ray findings. Patient received Lasix and this case was discussed with the inpatient hospitalist who accepts admission. Patient was also placed on a CIWA scale for his significant history of alcohol dependency. Medical Decision Making Lab Data Result diagrams: 10/26/21 01:01 10/26/21 01:01 Labs: Lab Results 10/26/21 10/26/21 10/26/21 Range/Units 01:01 01:01 01:01 WBC 6.3 (4.8-10.8) X10*3/uL RBC 3.87 L (4.60-5.80) X10*6/uL Hgb 12.3 L (14.0-18.0) g/dl Hct 37.4 L (42.0-52.0) % MCV 96.6 (80.0-98.0) fL MCH 31.8 (27.0-33.0) pg MCHC 32.9 (31.0-36.0) g/dl RDW 14.7 (11.0-16.0) % Plt Count 115 L (160-400) X10*3/uL MPV 9.4 (9.4-12.4) fL Immature Gran % (Auto) 0.8 H (0.0-0.4) % Neut % (Auto) 64.6 (45-73) % Lymph % (Auto) 16.7 L (20-40) % [place] % (Auto) 15.9 H (2-11) % Eos % (Auto) 1.7 (0-4) % Baso % (Auto) 0.3 (0-2) % Lymph # (Auto) 1.1 L (1.2-4.9) X10*3/uL [place] # (Auto) 1.0 (0.1-1.2) X10*3/uL Eos # (Auto) 0.1 (0.0-0.4) X10*3/uL Baso # (Auto) 0.0 (0.0-0.2) X10*3/uL Abs Immat Gran (auto) 0.05 H (0.00-0.03) X10*3/uL Absolute Neuts (auto) 4.1 (2.0-8.3) x10*3/uL Absolute Nucleated RBC 0.000 (0.0-0.012) X10*3/uL Nucleated RBC % (auto) 0.0 (0.0-0.2) /100WBC Sodium 135 (135-145) mmol/L Potassium 4.0 D (3.3-5.1) mmol/L Chloride 100 (96-108) mmol/L Carbon Dioxide 23 (22-29) mmol/L Anion Gap 16 (12-20) BUN 5 L D (9-16) mg/dL Creatinine 0.81 (0.5-1.4) mg/dL Estim Creat Clear Calc 116.8 Estimated GFR > 60 Random Glucose 302 H (60-115) mg/dL Calcium 9.2 D (8.4-10.2) mg/dL Total Bilirubin 0.7 (0.0-1.0) mg/dL AST 57 H (5-37) U/L ALT 74 H (0-40) U/L Alkaline Phosphatase 134 H D (39-117) U/L B-Natriuretic Peptide 62 (<100) pg/mL Total Protein 7.7 D (6.5-8.0) g/dL Albumin 3.9 (3.5-5.0) g/dL Ethyl Alcohol 117 mg/dL ECG Data Attestation: I personally reviewed and interpreted this ECG as follows: Prior ECG tracings: available for review Interpretation: Atrial fibrillation with RVR, HR-105, no STEMI, QRS/QTC without significant changes when compared to prior. Discharge Plan Discharge Clinical Impression: CHF exacerbation, HTN (hypertension), Diabetes Patient Disposition: Admitted As Inpatient Prescriptions: No Action multivitamin Tablet 1 tab PO DAILY metoprolol tartrate 50 mg tablet 1 tab PO BID Lantus U-100 Insulin 100 unit/mL Solution 8 unit subcut DAILY Qty: 10 0RF insulin lispro 100 unit/mL solution 5 unit subcut TID Qty: 10 0RF atorvastatin 40 mg tablet 1 tab PO BEDTIME trazodone 50 mg tablet 1 tab PO BEDTIME PRN (Reason: Insomnia) gabapentin 400 mg capsule 1 cap PO TID metformin 1,000 mg tablet 1 tab PO BIDWM furosemide [Lasix] 40 mg tablet 40 mg PO BID 30 Days Qty: 60 0RF aspirin 81 mg Tablet,Delayed Release (Dr/Ec) 81 mg PO DAILY Qty: 30 0RF folic acid 1 mg Tablet 1 mg PO DAILY Qty: 30 0RF thiamine mononitrate (vit B1) 100 mg Tablet 100 mg PO DAILY Qty: 30 0RF cefuroxime axetil 500 mg tablet 500 mg PO BID 10 Days Qty: 20 0RF
[2021-10-26 01:05] LABS: Basophils Percent Auto 0.3 % (0-2); Eosinophils Absolute Auto 0.1 X10*3/uL (0.0-0.4); Eosinophils Percent Auto 1.7 % (0-4); Hematocrit 37.4 % (42.0-52.0); Hemoglobin 12.3 g/dl (14.0-18.0); Imm Gran Abs Auto 0.05 X10*3/uL (0.00-0.03); Imm Gran Pct Auto 0.8 % (0.0-0.4); Lymphocytes Absolute Auto 1.1 X10*3/uL (1.2-4.9); Lymphocytes Percent Auto 16.7 % (20-40); MANUAL DIFF FLAG NO; Mean Corpuscular HGB Conc 32.9 g/dl (31.0-36.0); Mean Corpuscular Hemoglobin 31.8 pg (27.0-33.0); Mean Corpuscular Volume 96.6 fL (80.0-98.0); Mean Platelet Volume 9.4 fL (9.4-12.4); Monocytes Percent Auto 15.9 % (2-11); Neutrophils Absolute Auto 4.1 x10*3/uL (2.0-8.3); Neutrophils Percent Auto 64.6 % (45-73); Platelet Count 115 X10*3/uL (160-400); Red Blood Count 3.87 X10*6/uL (4.60-5.80); Red Cell Distribution Width 14.7 % (11.0-16.0); White Blood Count 6.3 X10*3/uL (4.8-10.8)
[2021-10-26 01:31] LABS: Alanine Aminotransferase 74 U/L (0-40); Albumin Level 3.9 g/dL (3.5-5.0); Alkaline Phosphatase 134 U/L (39-117); Anion Gap 16 (12-20); Aspartate Amino Transferase 57 U/L (5-37); Bilirubin Total 0.7 mg/dL (0.0-1.0); Blood Urea Nitrogen 5 mg/dL (9-16); Calcium 9.2 mg/dL (8.4-10.2); Carbon Dioxide 23 mmol/L (22-29); Chloride 100 mmol/L (96-108); Creatinine Clr Calc Pharmacy 116.8; Estimated Glomerular Filt Rate > 60; Ethanol 117 mg/dL; Glucose Random 302 mg/dL (60-115); Sodium 135 mmol/L (135-145); Total Protein 7.7 g/dL (6.5-8.0)
[2021-10-26 02:14] LABS: B Type Natriuretic Peptide 62 pg/mL (<100)
--- NOTE | 2021-10-26 03:48 | PC.NURSE ---
This RN, chief service observer, and MD at bedside attempting to place castorena catheter with no success.
[2021-10-26] MEDS: Furosemide 100 MG/10 ML VIAL 60 MG IVPUSH (04:09)
[2021-10-26 04:23] LABS: COVID-19 Test Negative (Negative)
[2021-10-26 04:30] LABS: Appearance Urine CLEAR; Color Urine YELLOW; Glucose Urine UA >=1000 MG/DL (NEG); Leukocyte Esterase Urine NEG (NEG); Nitrite Urine NEG (NEG); PH 5.5 (5.0-8.0); UACC Culture Trigger NO; Urine Blood 1+ (NEG); Urine Ketones NEG (NEG); Urine Protein NEG (NEG-TRACE)
[2021-10-26 04:40] LABS: Bacteria Urine TRACE /LPF; Mucus Urine 1+ /LPF; WBC Urine 0-2 /HPF (0-4)
[2021-10-26 04:48] LABS: Amphetamine Screen Urine Not Detected (Not Detect); Barbiturates, Urine Not Detected (Not Detect); Benzodiazepines Screen Urine Not Detected (Not Detect); Cannabinoid Screen Urine Not Detected (Not Detect); Cocaine Screen Urine Not Detected (Not Detect); Fentanyl, urine Not Detected (Not Detect); Opiate Screen Urine Not Detected (Not Detect); Phencyclidine Screen Urine Not Detected (Not Detect)
--- NOTE | 2021-10-26 05:24 | P.HPHOSP_ITS ---
History of Present Illness Date of Service: 10/26/21 Chief Complaint: SOB 60-year-old male with a past medical history of hypertension, hyperlipidemia, diabetes, CAD, CHF, AFib-not on anticoagulation, alcohol abuse, liver cirrhosis, anxiety, depression, presented to the hospital today with a chief complaint of shortness of breath and swelling of in the legs. Patient is a very poor historian. Reports that he has his backpack stone about 2 days ago; and has not been taking his home medications. And has been gradually swelling up in the legs. Complains of shortness of breath /dyspnea on exertion. Denies any chest pain or palpitations. Reports intermittent subjective fevers. Denies any nausea vomiting or diarrhea. Denies any urinary symptoms. Mentions that he drinks alcohol daily- reports he drinks a lot. Last drink was prior to coming to the hospital. Denies any chest pain palpitations. Review of all other systems is negative except mentioned above ER course: Per ER team patient noted to have bilateral 3+ pitting edema; coarse breath sounds; chest x-ray concerning for atypical infection versus pulmonary edema. Given IV Lasix. Admitted for further management. [facility] Medical History A-fib Acute on chronic combined systolic and diastolic congestive heart failure Alcohol use disorder, severe, dependence Alcoholic intoxication Atrial fibrillation, rapid CAD (coronary artery disease) Cardiomyopathy CHF (congestive heart failure) Cirrhosis Depression Diabetes ETOH abuse HTN (hypertension) Hyperglycemia Family History Other Diabetes Social History Household Members: None Housing: Homeless Housing Other:: rents room Do you presently have visiting nurse or other home services: No Unable to assess alcohol history related to: Refusing to respond Alcohol intake: current Alcohol intake frequency: 3 or more drinks per day Alcohol type: beer and hard liquor Patient Tobacco Use Status: Current someday Tobacco user Tobacco use type: Cigarette Cigarettes Per Day: 2 Second Hand Smoke Exposure: No Advance Directives: No service: No Current occupational status: unemployed and disabled Meds Allergies Allergy/AdvReac Type Severity Reaction Status Date / Time Penicillins [PCN] Allergy Unknown UNKNOWN Verified 04/08/21 16:26 Home Medications Medication Instructions Recorded Confirmed Last Taken Type atorvastatin 40 mg tablet 1 tab PO BEDTIME 09/11/20 04/08/21 11/14/20 History gabapentin 400 mg capsule 1 cap PO TID 09/11/20 04/08/21 11/14/20 History metformin 1,000 mg tablet 1 tab PO BIDWM 09/11/20 04/08/21 11/14/20 History trazodone 50 mg tablet 1 tab PO BEDTIME PRN Insomnia 09/11/20 04/08/21 11/01/20 History metoprolol tartrate 50 mg tablet 1 tab PO BID 11/16/20 04/08/21 11/14/20 History multivitamin 1 tab PO DAILY 11/16/20 04/08/21 11/14/20 History Physical Exam Vital Signs and Narrative: Vital Signs: Last Vital Signs Temp 98.6 F 10/26/21 00:32 Pulse 102 H 10/26/21 04:03 Resp 14 10/26/21 04:03 BP 133/79 10/26/21 04:03 Pulse Ox 100 10/26/21 04:03 O2 Del Method 10/26/21 04:03 O2 Flow Rate 2 10/26/21 04:03 BMI result Body Mass Index 34.0 Gen: Appears be in no acute distress HEENT: NCAT, Moist mucosa. Pulmonary: Coarse breath sounds, fair air entry CVS: Normal S1-S2 Abdomen: BS+, Soft, Nontender Extremities: Warm well perfused ; chronic skin changes are noted on the bilateral legs; also noted to have mild erythema/ tenderness on the bilateral legs. 3+ pitting edema noted. Neuro: Alert and awake. grossly nonfocal Results Labs CBC and Chem 7: 10/26/21 01:01 10/26/21 01:01 Labs: Laboratory Results - last 24 hr 10/26/21 10/26/21 10/26/21 01:01 01:01 01:01 MCV 96.6 MCH 31.8 MCHC 32.9 RDW 14.7 Plt Count 115 L MPV 9.4 Immature Gran % (Auto) 0.8 H Neut % (Auto) 64.6 Lymph % (Auto) 16.7 L Dolores % (Auto) 15.9 H Eos % (Auto) 1.7 Baso % (Auto) 0.3 Lymph # (Auto) 1.1 L Dolores # (Auto) 1.0 Eos # (Auto) 0.1 Baso # (Auto) 0.0 Abs Immat Gran (auto) 0.05 H Absolute Neuts (auto) 4.1 Absolute Nucleated RBC 0.000 Nucleated RBC % (auto) 0.0 Anion Gap 16 Estim Creat Clear Calc 116.8 Estimated GFR > 60 Random Glucose 302 H Calcium 9.2 D Total Bilirubin 0.7 AST 57 H ALT 74 H Alkaline Phosphatase 134 H D B-Natriuretic Peptide 62 Total Protein 7.7 D Albumin 3.9 Urine Color Urine Appearance Urine pH Ur Specific [place] Urine Protein Urine Glucose (UA) Urine Ketones Urine Blood Urine Nitrite Ur Leukocyte Esterase Urine RBC Urine WBC Ur Squamous Epith Cells Urine Bacteria Urine Mucus Urine Yeast Urine Opiates Screen Urine Fentanyl Screen Ur Barbiturates Screen Ur Phencyclidine Scrn Ur Amphetamines Screen U Benzodiazepines Scrn Urine Cocaine Screen U Marijuana (THC) Screen Ethyl Alcohol 117 COVID-19 (CHRISTI) COVID-19 [employer] 10/26/21 10/26/21 10/26/21 04:01 04:22 04:22 MCV MCH MCHC RDW Plt Count MPV Immature Gran % (Auto) Neut % (Auto) Lymph % (Auto) Dolores % (Auto) Eos % (Auto) Baso % (Auto) Lymph # (Auto) Dolores # (Auto) Eos # (Auto) Baso # (Auto) Abs Immat Gran (auto) Absolute Neuts (auto) Absolute Nucleated RBC Nucleated RBC % (auto) Anion Gap Estim Creat Clear Calc Estimated GFR Random Glucose Calcium Total Bilirubin AST ALT Alkaline Phosphatase B-Natriuretic Peptide Total Protein Albumin Urine Color YELLOW Urine Appearance CLEAR Urine pH 5.5 Ur Specific [place] 1.010 Urine Protein NEG Urine Glucose (UA) >=1000 H Urine Ketones NEG Urine Blood 1+ H Urine Nitrite NEG Ur Leukocyte Esterase NEG Urine RBC 1-4 Urine WBC 0-2 Ur Squamous Epith Cells NONE Urine Bacteria TRACE Urine Mucus 1+ Urine Yeast 1+ Urine Opiates Screen Not Detected Urine Fentanyl Screen Not Detected Ur Barbiturates Screen Not Detected Ur Phencyclidine Scrn Not Detected Ur Amphetamines Screen Not Detected U Benzodiazepines Scrn Not Detected Urine Cocaine Screen Not Detected U Marijuana (THC) Screen Not Detected Ethyl Alcohol COVID-19 (CHRISTI) Negative COVID-19 Clin Com See Note Imaging Radiologist's Impressions: Impressions Chest X-Ray 10/26/21 01:48 IMPRESSION: Bronchial wall thickening present favoring a small airways process such as asthma or atypical/viral infection. Fluid overload also possible. Assessment and Plan (1) CHF exacerbation: Status: Acute Plan 60-year-old male with a past medical history of hypertension, hyperlipidemia, diabetes, CAD, CHF, AFib-not on anticoagulation, alcohol abuse, liver cirrhosis, anxiety, depression, presented to the hospital today with a chief complaint of shortness of breath and swelling of in the legs. noted to have following conditions Shortness of breath: Chest x-ray showed atypical infection versus reactive airway disease versus pulmonary edema. Patient is being given Solu-Medrol IV; nebulizations standing and p.r.n. Supplemental oxygen p.r.n. Doxycycline b.i.d. Acute on chronic CHF exacerbation: Daily weights and I's and O's Will give the patient on IV Lasix b.i.d. Patient has been noncompliant with his home medications. Bilateral lower extremity swelling/ edema: Concerning for cellulitis versus status dermatitis. Patient on doxycycline. Venous duplex Alcohol abuse: Monitor on CIWA protocol. Phenobarbital. Thiamine folate and multivitamins. Diabetes: Insulin sliding scale. Diabetic neuropathy: Continue home gabapentin Hypertension/hyperlipidemia: Continue home metoprolol, statin DVT prophylaxis: Lovenox Code status: Full code Quality Stroke Does the patient have a stroke diagnosis?: No VTE Prior VTE?: No VTE Risk Level:: Medical - moderate - high VTE Device Contraindication: Treatment Not Indicated VTE Drug Contraindication: N/A - Med Ordered
[2021-10-26] MEDS: methylPREDNISolone Sod Succ 40 MG/ML VIAL IVPUSH ×3 (06:23→21:47)
[2021-10-26 06:50] LABS: Troponin-I High Sensitivity 23.1 ng/L (<3.5-35.0)
--- NOTE | 2021-10-26 07:05 | PC.NURSE ---
Assumed care of this pt. and received report from Debbie Enriquez RN
[2021-10-26 07:11] LABS: Glucose, Whole Blood 286 mg/dL (60-115)
[2021-10-26] MEDS: Insulin Lispro 100 UNIT/ML 3 ML VIAL SUBCUT ×4 (07:17→21:37)
[2021-10-26] MEDS: Furosemide 20 MG/2 ML VIAL IVPUSH ×2 (07:17→16:08)
[2021-10-26] MEDS: 0.9 % Sodium Chloride Flush 3 ML SYRINGE IVFLUSH ×2 (07:25→16:08)
[2021-10-26] MEDS: Thiamine HCL 100 MG TABLET PO (07:46)
[2021-10-26] MEDS: Multivitamin TABLET 1 TAB PO (07:46)
[2021-10-26] MEDS: Folic Acid 1 MG TABLET PO (07:46)
[2021-10-26] MEDS: Enoxaparin Sodium 40 MG/0.4 ML SYRINGE SUBCUT (07:47)
--- NOTE | 2021-10-26 08:22 | PC.NURSE ---
Report called to CROW Jasso in ED Overflow
[2021-10-26] MEDS: Albuterol/Iprat 2.5/0.5MG 3 ML AMPUL.NEB INHALE ×4 (08:26→19:20)
--- NOTE | 2021-10-26 10:08 | PHA.MEDREC ---
Pharmacy Consult ? Medication Reconciliation Pharmacy has completed the medication reconciliation. Erector Operator used; pt very poor historian. Unsure of what medications he takes and had no idea about which dose of Lantus he gets. Could only name his gabapentin and that he takes it three times a day. Called his pharmacy in [place] to verify lantus dose. Pt specifically stated he has not taken medications since October 09. Utilized claim history and pharmacy for med rec.
--- NOTE | 2021-10-26 11:11 | PM.EVENT ---
Event Note Date of Service: 10/26/21 Event Note: Admitted with heart failure exacerbation, and alcohol withdrawal, continue care as discussed from H and p from this morning
[2021-10-26] MEDS: Famotidine 20 MG TABLET PO ×2 (11:47→20:48)
[2021-10-26] MEDS: Metoprolol Tartrate 25 MG TABLET PO ×2 (11:47→20:48)
[2021-10-26] MEDS: Aspirin Enteric Coated 81 MG TABLET.DR PO (11:47)
[2021-10-26] MEDS: Gabapentin 400 MG CAPSULE PO ×3 (11:47→20:48)
--- NOTE | 2021-10-26 12:17 | PC.NURSE ---
PHENOBARBITAL 100 MG NOT LOADED IN OVERFLOW PYXIS. SPOKE WITH KULWINDER IN PHARMACY. WILL BRING MED TO UNIT. WILL ADMINISTER MED WHEN RECEIVED.
[2021-10-26 12:23] LABS: Glucose, Whole Blood 346 mg/dL (60-115)
--- NOTE | 2021-10-26 13:00 | PC.NURSE ---
INSULIN NOT LOADED IN OVERFLOW PYXIS. PHARMACY WILL BRING TO UNIT. WILL ADMINISTER WHEN RECEIVED.
[2021-10-26] MEDS: PHENobarbitaL 200 MG, PHENobarbitaL 15 MG 215 MG PO ×2 (13:02→16:20)
--- NOTE | 2021-10-26 17:11 | PC.NURSE ---
POC 469, DR. SANTO AWARE. BEDSIDE ULTRASOUND BEING DONE AT THIS TIME.
[2021-10-26 17:15] LABS: Glucose, Whole Blood 469 mg/dL (60-115)
[2021-10-26 17:15] LABS: Glucose, Whole Blood 479 mg/dL (60-115)
--- NOTE | 2021-10-26 18:59 | PC.NURSE ---
patient bed was soiled from bowel movement ,care given ,bedding change ,patient is able to use urinal by himself .
[2021-10-26] MEDS: PHENobarbitaL 15 MG TABLET 45 MG PO (20:48)
[2021-10-26] MEDS: Atorvastatin Calcium 40 MG TABLET PO (20:48)
--- NOTE | 2021-10-26 21:14 | PC.NURSE ---
pt BS 499, MD aware
[2021-10-26 21:19] LABS: Glucose, Whole Blood 499 mg/dL (60-115)
[2021-10-27] VITALS (8 sets, daily range): BP systolic 115–138; BP diastolic 58–81; PULSE 83–104; RESP 14–22; TEMP 36.5; O2SAT 95–99
[2021-10-27] MEDS: 0.9 % Sodium Chloride Flush 3 ML SYRINGE IVFLUSH (00:10)
--- NOTE | 2021-10-27 03:03 | PC.NURSE ---
RESTING QUIETLY,MONITOR AFIB,HR 80'S.LUNGS CLEAR/DIM. NOTED SLEEP APNEA WITH PULSE OX DECREASE TO 70'S AT TIMES ON RA..O2 APPLIED AT 2L WITH IMPROVEMENT OF SATS TO 92.EDEMA/REDNESS TO BILAT LOWER EXT.DENIES PAIN.
[2021-10-27] MEDS: methylPREDNISolone Sod Succ 40 MG/ML VIAL IVPUSH (05:15)
[2021-10-27 07:17] LABS: MANUAL DIFF FLAG NO
[2021-10-27 07:32] LABS: Hemoglobin 11.5 g/dl (14.0-18.0); Imm Gran Abs Auto 0.06 X10*3/uL (0.00-0.03); Imm Gran Pct Auto 0.9 % (0.0-0.4); Lymphocytes Absolute Auto 0.4 X10*3/uL (1.2-4.9); Lymphocytes Percent Auto 6.4 % (20-40); Mean Corpuscular HGB Conc 32.9 g/dl (31.0-36.0); Mean Corpuscular Hemoglobin 31.9 pg (27.0-33.0); Mean Corpuscular Volume 97.2 fL (80.0-98.0); Mean Platelet Volume 10.2 fL (9.4-12.4); Monocytes Absolute Auto 0.4 X10*3/uL (0.1-1.2); Monocytes Percent Auto 6.1 % (2-11); Neutrophils Absolute Auto 5.8 x10*3/uL (2.0-8.3); Neutrophils Percent Auto 86.6 % (45-73); Platelet Count 126 X10*3/uL (160-400); Red Cell Distribution Width 14.6 % (11.0-16.0); White Blood Count 6.7 X10*3/uL (4.8-10.8)
[2021-10-27 07:52] LABS: Anion Gap 16 (12-20); Blood Urea Nitrogen 16 mg/dL (9-16); Carbon Dioxide 24 mmol/L (22-29); Chloride 98 mmol/L (96-108); Creatinine Clr Calc Pharmacy 97.5; Estimated Glomerular Filt Rate > 60; Potassium 4.5 mmol/L (3.3-5.1); Sodium 133 mmol/L (135-145)
[2021-10-27 07:54] LABS: Glucose Random 406 mg/dL (60-115)
[2021-10-27 07:58] LABS: Glucose, Whole Blood 373 mg/dL (60-115)
[2021-10-27] MEDS: Enoxaparin Sodium 40 MG/0.4 ML SYRINGE SUBCUT (09:02)
[2021-10-27] MEDS: Gabapentin 400 MG CAPSULE PO ×3 (09:02→20:44)
[2021-10-27] MEDS: Thiamine HCL 100 MG TABLET PO (09:02)
[2021-10-27] MEDS: Multivitamin TABLET 1 TAB PO (09:02)
[2021-10-27] MEDS: Folic Acid 1 MG TABLET PO (09:02)
[2021-10-27] MEDS: PHENobarbitaL 15 MG TABLET 45 MG PO ×2 (09:03→20:44)
[2021-10-27] MEDS: Insulin Lispro 100 UNIT/ML 3 ML VIAL SUBCUT ×7 (09:03→20:53)
[2021-10-27] MEDS: Famotidine 20 MG TABLET PO ×2 (09:03→20:44)
[2021-10-27] MEDS: Aspirin Enteric Coated 81 MG TABLET.DR PO (09:46)
[2021-10-27] MEDS: Metoprolol Tartrate 25 MG TABLET PO ×2 (09:47→20:43)
[2021-10-27] MEDS: Insulin Glargine,Hum.rec.anlog 100 UNIT/ML 10 ML VIAL 15 UNIT SUBCUT (10:38)
[2021-10-27] MEDS: Albuterol/Iprat 2.5/0.5MG 3 ML AMPUL.NEB INHALE ×2 (11:32→19:22)
[2021-10-27 13:29] LABS: Glucose, Whole Blood 409 mg/dL (60-115)
--- NOTE | 2021-10-27 13:55 | HO.PM.IMPN ---
Subjective Subjective Date of Service: 10/28/21 Interval History: f/u on chf exacerbation interval history: some delvalle in the leg, no sob Review of Systems no sob no chest pain pain in leg Physical Exam Vital Signs: Vital Signs: Last Vital Signs Temp 97.8 F 10/26/21 16:00 Pulse 101 H 10/27/21 13:36 Resp 21 H 10/27/21 13:36 BP 115/66 10/27/21 13:36 Pulse Ox 95 10/27/21 13:36 O2 Del Method 10/27/21 13:36 O2 Flow Rate 2 10/27/21 06:15 BMI result Body Mass Index 34.0 Const: Other: General: AO X 3, no acute distress Resp: CTA bilateral CVS: S1,S2,RRR, 1+ leg edema GI: +BS, NT, no distention Skin: No rash, chronic stais dermatitis, ulcer of left anterior leg Neuro: motor grossly intact Psych: appropriate affect Objective Data Active Medications Acetaminophen (Acetaminophen 325 Mg Tablet) 650 mg PO Q6H PRN PRN Reason: Pain, Mild (Pain Scale 1-3) Albuterol/Ipratropium (Albuterol/Iprat 2.5/0.5mg 3 Ml Ampul.Neb) 3 ml INHALE RQ4H WHILE AWAKE [facility] Last Admin: 10/27/21 11:32 Dose: 3 ml Documented By: WALE Albuterol/Ipratropium (Albuterol/Iprat 2.5/0.5mg 3 Ml Ampul.Neb) 3 ml INHALE Q4H PRN PRN Reason: Shortness of Breath/Wheezing Aspirin (Aspirin Enteric Coated 81 Mg Tablet.) 81 mg PO DAILY [facility] Last Admin: 10/27/21 09:46 Dose: 81 mg Documented By: BERTHA Atorvastatin Calcium (Atorvastatin Calcium 40 Mg Tablet) 40 mg PO BEDTIME [facility] Dextrose (Dextrose 50 % 25 Gm/50 Ml Syringe) 25 gm IVPUSH Q15M PRN; Protocol PRN Reason: per Hypoglycemia Standing Ord. Doxycycline Hyclate (Doxycycline Hyclate 100 Mg Tablet) 100 mg PO Q12H [facility] Last Admin: 10/27/21 09:02 Dose: 100 mg Documented By: BERTHA Enoxaparin Sodium (Enoxaparin Sodium 40 Mg/0.4 Ml Syringe) 40 mg SUBCUT DAILY [facility] Last Admin: 10/27/21 09:02 Dose: 40 mg Documented By: YUMIKO-RAMAKRISHNA Famotidine (Famotidine 20 Mg Tablet) 20 mg PO BID [facility] Last Admin: 10/27/21 09:03 Dose: 20 mg Documented By: YUMIKO-RAMAKRISHNA Folic Acid (Folic Acid 1 Mg Tablet) 1 mg PO DAILY [facility] Stop: 10/29/21 08:59 Last Admin: 10/27/21 09:02 Dose: 1 mg Documented By: YUMIKO-RAMAKRISHNA Furosemide (Furosemide 20 Mg/2 Ml Vial) 40 mg IVPUSH BIDWM [facility]; Protocol Gabapentin (Gabapentin 400 Mg Capsule) 400 mg PO TID [facility] Last Admin: 10/27/21 09:02 Dose: 400 mg Documented By: YUMIKO-RAMAKRISHNA Gabapentin (Gabapentin 400 Mg Capsule) 400 mg PO TID [facility] Last Admin: 10/27/21 10:31 Dose: Not Given Documented By: BERTHA Non-Admin Reason: Duplicate Order Glucose (Glucose Gel 15 Gm Gel..Gram.) 15 gm PO Q15M PRN; Protocol PRN Reason: per Hypoglycemia Standing Ord. Insulin Glargine (Insulin Glargine,Hum.Rec.Anlog 100 Unit/Ml 10 Ml Vial) 15 unit SUBCUT DAILY [facility] Last Admin: 10/27/21 10:38 Dose: 15 unit Documented By: YUMIKO-RAMAKRISHNA Insulin Human Lispro (Insulin Lispro 100 Unit/Ml 3 Ml Vial) 0 unit SUBCUT QIDACHS [facility]; Protocol Last Admin: 10/27/21 13:17 Dose: 10 unit Documented By: YUMIKO-INGRIDFA Insulin Human Lispro (Insulin Lispro 100 Unit/Ml 3 Ml Vial) 5 unit SUBCUT QIDACHS [facility] Last Admin: 10/27/21 13:17 Dose: 5 unit Documented By: YUMIKO-RAMAKRISHNA Melatonin (Melatonin 3 Mg Tablet) 6 mg PO BEDTIME PRN PRN Reason: Insomnia Metformin HCl (Metformin Hcl 1,000 Mg Tablet) 1,000 mg PO BIDWM [facility] Metoprolol Tartrate (Metoprolol Tartrate 25 Mg Tablet) 25 mg PO BID [facility]; Protocol Last Admin: 10/27/21 09:47 Dose: 25 mg Documented By: YUMIKO-RAMAKRISHNA Multivitamins/Vitamin C (Multivitamin Tablet) 1 tab PO DAILY [facility] Stop: 10/29/21 08:59 Last Admin: 10/27/21 09:02 Dose: 1 tab Documented By: BERTHA Pharmacy Consult (Consult Rx Etoh Phenob Po Only) 1 each MISCELLANE ONCE PRN; Protocol PRN Reason: Consult order Phenobarbital (Phenobarbital 15 Mg Tablet) 45 mg PO BID [facility]; Protocol Stop: 10/28/21 09:01 Last Admin: 10/27/21 09:03 Dose: 45 mg Documented By: BERTHA Phenobarbital (Phenobarbital 30 Mg Tablet) 30 mg PO BID [facility]; Protocol Stop: 10/30/21 09:01 Phenobarbital (Phenobarbital 30 Mg Tablet) 30 mg PO DAILY [facility]; Protocol Stop: 11/01/21 09:01 Senna (Sennosides 8.6 Mg Tablet) 17.2 mg PO BEDTIME PRN PRN Reason: Constipation Sodium Chloride (0.9 % Sodium Chloride Flush 3 Ml Syringe) 3 ml IVFLUSH QSHIFT [facility] Last Admin: 10/27/21 08:14 Dose: Not Given Documented By: BERTHA Non-Admin Reason: assessed Thiamine HCl (Thiamine Hcl 100 Mg Tablet) 100 mg PO DAILY [facility] Stop: 10/29/21 08:59 Last Admin: 10/27/21 09:02 Dose: 100 mg Documented By: BERTHA Labs CBC & Chem 7: 10/27/21 06:02 10/27/21 06:02 Labs: Laboratory Results - last 24 hr 10/26/21 10/26/21 10/26/21 16:44 16:49 20:59 MCV MCH MCHC RDW Plt Count MPV Immature Gran % (Auto) Neut % (Auto) Lymph % (Auto) [place] % (Auto) Eos % (Auto) Baso % (Auto) Lymph # (Auto) [place] # (Auto) Eos # (Auto) Baso # (Auto) Abs Immat Gran (auto) Absolute Neuts (auto) Absolute Nucleated RBC Nucleated RBC % (auto) Anion Gap Estim Creat Clear Calc Estimated GFR POC Glucose 479 H* 469 H* 499 H* Random Glucose Calcium 10/27/21 10/27/21 10/27/21 06:02 06:02 07:26 MCV 97.2 MCH 31.9 MCHC 32.9 RDW 14.6 Plt Count 126 L MPV 10.2 Immature Gran % (Auto) 0.9 H Neut % (Auto) 86.6 H Lymph % (Auto) 6.4 L [place] % (Auto) 6.1 Eos % (Auto) 0.0 Baso % (Auto) 0.0 Lymph # (Auto) 0.4 L [place] # (Auto) 0.4 Eos # (Auto) 0.0 Baso # (Auto) 0.0 Abs Immat Gran (auto) 0.06 H Absolute Neuts (auto) 5.8 Absolute Nucleated RBC 0.000 Nucleated RBC % (auto) 0.0 Anion Gap 16 Estim Creat Clear Calc 97.5 Estimated GFR > 60 POC Glucose 373 H* Random Glucose 406 H* Calcium 9.0 10/27/21 13:10 MCV MCH MCHC RDW Plt Count MPV Immature Gran % (Auto) Neut % (Auto) Lymph % (Auto) [place] % (Auto) Eos % (Auto) Baso % (Auto) Lymph # (Auto) [place] # (Auto) Eos # (Auto) Baso # (Auto) Abs Immat Gran (auto) Absolute Neuts (auto) Absolute Nucleated RBC Nucleated RBC % (auto) Anion Gap Estim Creat Clear Calc Estimated GFR POC Glucose 409 H* Random Glucose Calcium Assessment and Plan (1) CHF exacerbation: Status: Acute Plan 60-year-old male with a past medical history of hypertension, hyperlipidemia, diabetes, CAD, CHF, AFib-not on anticoagulation, alcohol abuse, liver cirrhosis, anxiety, depression, presented to the hospital today with a chief complaint of shortness of breath and swelling of in the legs. noted to have following conditions Shortness of breath: likely from heart failure stop steroid Acute on chronic CHF exacerbation: IV Lasix and monitor I/O, salt Bilateral lower extremity swelling/ edema and eythema: Concerning for cellulitis versus status dermatitis. Patient on doxycycline. Venous duplex negative for VTE Alcohol abuse desorder and high risk for withdrawal: Phenobarbital. Diabetes: uncontrolled. DC steroid, add Pre-meal, restart Metformin, increase Lants to 30 Diabetic neuropathy: Continue home gabapentin Hypertension/hyperlipidemia: Continue home metoprolol, statin DVT prophylaxis: Lovenox Code status: Full code Need for inpatient: heart failure exacerbation requiring IV diuretics and monitoring for response Quality Stroke Does the patient have a stroke diagnosis?: No VTE Prior VTE?: No VTE Risk Level:: Medical - moderate - high VTE Device Contraindication: Treatment Not Indicated VTE Drug Contraindication: N/A - Med Ordered
[2021-10-27] MEDS: Furosemide 20 MG/2 ML VIAL 40 MG IVPUSH (16:10)
[2021-10-27] MEDS: metFORMIN HCl 1,000 MG TABLET 1000 MG PO (16:11)
[2021-10-27 18:05] LABS: Glucose, Whole Blood 307 mg/dL (60-115)
--- NOTE | 2021-10-27 18:12 | PC.NURSE ---
poc maintained and insulin administered as ordered, md informed of elevated sugar levels, no new orders at this time, per md continue sliding scale. pt bathed this shift. dressing placed for LE wounds. safety and fall precautions maintained. pt able to ambulate with standby assist, uses cane. call lucero within reach.
[2021-10-27] MEDS: Atorvastatin Calcium 40 MG TABLET PO (20:43)
[2021-10-27 20:50] LABS: Glucose, Whole Blood 294 mg/dL (60-115)
[2021-10-28] VITALS (10 sets, daily range): BP systolic 111–147; BP diastolic 72–87; PULSE 84–108; RESP 14–20; TEMP 36.2–37.1; O2SAT 95–100; BMI 38.6
[2021-10-28 08:09] LABS: Glucose, Whole Blood 210 mg/dL (60-115)
[2021-10-28] MEDS: Enoxaparin Sodium 40 MG/0.4 ML SYRINGE SUBCUT (08:25)
[2021-10-28] MEDS: Gabapentin 400 MG CAPSULE PO ×3 (08:26→21:05)
[2021-10-28] MEDS: Multivitamin TABLET 1 TAB PO (08:27)
[2021-10-28] MEDS: Aspirin Enteric Coated 81 MG TABLET.DR PO (08:27)
[2021-10-28] MEDS: PHENobarbitaL 15 MG TABLET 45 MG PO (08:27)
[2021-10-28] MEDS: metFORMIN HCl 1,000 MG TABLET 1000 MG PO ×2 (08:27→16:54)
[2021-10-28] MEDS: Thiamine HCL 100 MG TABLET PO (08:27)
[2021-10-28] MEDS: Famotidine 20 MG TABLET PO ×2 (08:28→21:05)
[2021-10-28] MEDS: Folic Acid 1 MG TABLET PO (08:28)
[2021-10-28] MEDS: Metoprolol Tartrate 25 MG TABLET PO ×2 (08:28→21:05)
[2021-10-28] MEDS: Furosemide 20 MG/2 ML VIAL 40 MG IVPUSH ×2 (08:29→16:54)
[2021-10-28] MEDS: Insulin Lispro 100 UNIT/ML 3 ML VIAL SUBCUT ×8 (08:30→21:06)
[2021-10-28] MEDS: Insulin Glargine,Hum.rec.anlog 100 UNIT/ML 10 ML VIAL 30 UNIT SUBCUT (08:31)
[2021-10-28] MEDS: 0.9 % Sodium Chloride Flush 3 ML SYRINGE IVFLUSH ×3 (08:46→21:06)
[2021-10-28 09:37] LABS: Anion Gap 12 (12-20); Blood Urea Nitrogen 19 mg/dL (9-16); Calcium 8.8 mg/dL (8.4-10.2); Carbon Dioxide 29 mmol/L (22-29); Chloride 98 mmol/L (96-108); Creatinine Clr Calc Pharmacy 121.8; Estimated Glomerular Filt Rate > 60; Glucose Random 317 mg/dL (60-115); Potassium 3.8 mmol/L (3.3-5.1); Sodium 135 mmol/L (135-145)
--- NOTE | 2021-10-28 10:50 | MHC.CM.PN ---
with interpertor met with pt who reports being homeless pt was at [facility] until his dc october 09 he says he was dcd to streets..is expevted that [facility] need placement when dcd referrals made
--- NOTE | 2021-10-28 11:00 | MHC.CM.PN ---
pt dcd home [facility] notified of dc pt was active with them
[2021-10-28] MEDS: Albuterol/Iprat 2.5/0.5MG 3 ML AMPUL.NEB INHALE ×2 (11:32→20:05)
[2021-10-28 11:41] LABS: Glucose, Whole Blood 215 mg/dL (60-115)
[2021-10-28 16:37] LABS: Glucose, Whole Blood 232 mg/dL (60-115)
[2021-10-28 20:49] LABS: Glucose, Whole Blood 173 mg/dL (60-115)
[2021-10-28] MEDS: Atorvastatin Calcium 40 MG TABLET PO (21:05)
[2021-10-28] MEDS: PHENobarbitaL 30 MG TABLET PO (21:05)
[2021-10-29 03:16] VITALS: BP 137/67; PULSE 63; RESP 14; TEMP 36.6; O2SAT 98
[2021-10-29 07:12] VITALS: BP 122/80; PULSE 88; RESP 20; TEMP 36.5; O2SAT 97
[2021-10-29 07:25] LABS: Glucose, Whole Blood 199 mg/dL (60-115)
[2021-10-29] MEDS: metFORMIN HCl 1,000 MG TABLET 1000 MG PO (08:34)
[2021-10-29] MEDS: Gabapentin 400 MG CAPSULE PO (08:35)
[2021-10-29] MEDS: PHENobarbitaL 30 MG TABLET PO (08:35)
[2021-10-29] MEDS: Metoprolol Tartrate 25 MG TABLET PO (08:36)
[2021-10-29] MEDS: Famotidine 20 MG TABLET PO (08:36)
[2021-10-29] MEDS: Aspirin Enteric Coated 81 MG TABLET.DR PO (08:36)
[2021-10-29] MEDS: Furosemide 20 MG/2 ML VIAL 40 MG IVPUSH (08:37)
[2021-10-29] MEDS: Enoxaparin Sodium 40 MG/0.4 ML SYRINGE SUBCUT (08:37)
[2021-10-29] MEDS: Insulin Glargine,Hum.rec.anlog 100 UNIT/ML 10 ML VIAL 30 UNIT SUBCUT (08:37)
[2021-10-29] MEDS: Insulin Lispro 100 UNIT/ML 3 ML VIAL SUBCUT ×4 (08:38→13:29)
[2021-10-29] MEDS: 0.9 % Sodium Chloride Flush 3 ML SYRINGE IVFLUSH (08:41)
--- NOTE | 2021-10-29 10:43 | PM.DS ---
DS: Providers Provider Date of Service: 10/29/21 Date of admission: 10/26/21 05:20 Primary care physician: Unknown Physician DS: Diagnosis Discharge Diagnosis (1) CHF exacerbation: Status: Acute DS: Summary Hospital Course Hospital Course: Chief Complaint: SOB ?60-year-old male with a past medical history of hypertension, hyperlipidemia, diabetes, CAD, CHF, AFib-not on anticoagulation, alcohol abuse, liver cirrhosis, anxiety, depression, presented to the hospital today with a chief complaint of shortness of breath and swelling of in the legs.? Patient is a very poor historian.? Reports that he has his backpack stone about 2 days ago; and has not been taking his home medications.? And has been gradually swelling up in the legs.? Complains of shortness of breath /dyspnea on exertion.? Denies any chest pain or palpitations.? Reports intermittent subjective fevers.? Denies any nausea vomiting or diarrhea.? Denies any urinary symptoms.? Mentions that he drinks alcohol daily- reports he drinks a lot.? Last drink was prior to coming to the hospital.? Denies any chest pain palpitations.? Review of all other systems is negative except mentioned above ER course: Per ER team patient noted to have bilateral 3+ pitting edema; coarse breath sounds; chest x-ray concerning for atypical infection versus pulmonary edema.? Given IV Lasix.? Admitted for further management. Hospital course: Acute on chronic systolic CHF exacerbation: Treated with IV Lasix is is negative 5 liters, Last Echo in 2020 showed EF of 10 to 15, will change to oral Lasix 40 mg daily at discharge. Limit salt intake, monitor weight and fluid intake Bilateral lower extremity swelling/ edema and eythema: Concerning for cellulitis versus status dermatitis.? Patient on doxycycline and will treate for 7 days. ? Venous duplex negative for VTE Alcohol abuse desorder and high risk for withdrawal: Treated with Phenobarbital and did not go into full blown withdrawal Diabetes: uncontrolled. To continue Lantus, Metformin and sliding scle Diabetic neuropathy: Continue home gabapentin Hypertension/hyperlipidemia: Continue home metoprolol, statin Dispo: offer rehab but declined in favor of going to his brother's Time Spent with Patient Time attestation: Total time spent providing and/or coordinating discharge services: Discharge coordination time: Greater than 30 minutes Quality: Safe Use of Opioids Does Pt have an Active Cancer Diagnosis on the Problem List?: No Quality: Stroke Does the patient have a stroke diagnosis?: No Physical Exam Vital Signs: Vital Signs: Last Vital Signs Temp 97.7 F 10/29/21 07:12 Pulse 88 10/29/21 07:12 Resp 20 10/29/21 07:12 BP 122/80 10/29/21 07:12 Pulse Ox 97 10/29/21 07:12 O2 Del Method 10/29/21 07:12 O2 Flow Rate 2 10/27/21 06:15 BMI result Body Mass Index 38.6 DS: Data Data Completed and Pending Completed studies during hospitalization [Text1]: Procedures Detoxification Services for Substance Abuse Treatment (04/09/21) Labs on day of discharge: Laboratory Results - last 24 hr 10/28/21 10/28/21 10/28/21 11:13 16:29 20:45 POC Glucose 215 H 232 H 173 H 10/29/21 07:13 POC Glucose 199 H Discharge Plan Discharge Anticipated Discharge Date/Time: 10/29/21 12:34 Patient Disposition: Home, Self-Care Discharge Diagnosis: Acute exacerbation of CHF Referrals: jarad garcia [Other] - 1 Week Physician,Unknown J [Primary Care Provider] - 1 Week Discharge Medications: New doxycycline monohydrate 100 mg capsule 100 mg PO BID Qty: 10 0RF Continued atorvastatin 40 mg tablet 1 tab PO BEDTIME gabapentin 400 mg capsule 1 cap PO TID metformin 1,000 mg tablet 1 tab PO BIDWM aspirin 81 mg Tablet,Delayed Release (Dr/Ec) 81 mg PO DAILY Qty: 30 0RF metoprolol tartrate 25 mg tablet 1 tab PO BID insulin glargine [Lantus U-100 Insulin] 100 unit/mL solution 15 unit subcut DAILY furosemide [Lasix] 40 mg tablet 40 mg PO BID 30 Days Qty: 60 0RF Discharge Orders: Discharge Order (Routine); Ordered 10/29/21 Ordered By: Woo Johnson Diet: Diabetic diet Activity on Discharge: As tolerated Stand Alone Forms: Patient Portal Discharge page Care Plan Goals: Full recovery from heart failure Health Concerns: Heart failure, cellulitis Plan of Treatment: Take Lasix as directed and take Doxycyline for cellulitis, follow up with your Doctor in a week you have declined rehab Assessment: as above Discharge Date/Time: 10/29/21 15:58
[2021-10-29 11:04] VITALS: BP 127/76; PULSE 91; RESP 20; TEMP 36.6; O2SAT 99
[2021-10-29 11:15] LABS: Glucose, Whole Blood 210 mg/dL (60-115)
[2021-10-29] MEDS: Albuterol/Iprat 2.5/0.5MG 3 ML AMPUL.NEB INHALE (11:18)
[2021-10-29 11:20] VITALS: PULSE 95; RESP 17; O2SAT 98
--- NOTE | 2021-10-29 12:11 | MHC.CM.PN ---
[facility] dec[facility] pt is aware that he will have no medical follow up as he does not have a pcp
== END 2021-10-29 15:58 | disposition home or self-care (01) | DRG 291 ==
LOC: HO.ED 04:02 → HO.EDOVER 05:37 → HO.IMC 10-28 00:15
PROVIDERS: Admitting Provider Hospitalist; Emergency Provider Student in an Organized Health Care Education/Training Program; PCP Family Medicine; Visit Provider Internal Medicine
DX: I11.0 Hypertensive heart disease with heart failure (principal); I50.43 Acute on chronic combined systolic (congestive) and diastolic (congestive) heart failure; F10.239 Alcohol dependence with withdrawal, unspecified; L03.116 Cellulitis of left lower limb; L03.115 Cellulitis of right lower limb; F10.229 Alcohol dependence with intoxication, unspecified; I25.10 Atherosclerotic heart disease of native coronary artery without angina pectoris; E11.40 Type 2 diabetes mellitus with diabetic neuropathy, unspecified; I48.91 Unspecified atrial fibrillation; Y90.5 Blood alcohol level of 100-119 mg/100 ml; K74.60 Unspecified cirrhosis of liver; Z91.14 Patient's other noncompliance with medication regimen; I87.323 Chronic venous hypertension (idiopathic) with inflammation of bilateral lower extremity; Z20.822 Contact with and (suspected) exposure to COVID-19; Z88.0 Allergy status to penicillin; Z79.4 Long term (current) use of insulin; Z79.82 Long term (current) use of aspirin; Z79.84 Long term (current) use of oral hypoglycemic drugs; Z79.899 Other long term (current) drug therapy
CPT/HCPCS: 36415; 71045; 80048; 80053; 80307; 81001; 82077; 82947; 83880; 84484; 85025; 87635; 93005; 93970; 94640; 94664; 96374; 99285; J1650; J1940; J2920

== ENCOUNTER 2021-10-31 23:50 | Emergency (ER) | payer MEDICARE, MEDICAID, SELFPAY ==
[2021-10-31 23:56] VITALS: BP 141/93; PULSE 106; O2SAT 94
[2021-11-01 00:16] VITALS: BP 126/75; PULSE 105; RESP 16; O2SAT 97; BMI 40.3
[2021-11-01 02:14] VITALS: BP 122/81; PULSE 102; RESP 17; O2SAT 93
--- NOTE | 2021-11-01 03:03 | ED_ITS ---
HPI - General Adult General Chief complaint: ETOH/Substance Use Stated complaint: ETOH Source: patient Mode of arrival: ambulatory Limitations: no limitations History of Present Illness HPI narrative: patient brought by EMS for alcohol intoxication. Patient was found drinking behind liquid stool. EMS states no trauma. Patient was not found unconscious. Denies any blood around the patient. Patient admits to drinking and is extremely intoxicated. Related Data Home Medications Medication Instructions Recorded Confirmed atorvastatin 40 mg tablet 1 tab PO BEDTIME 09/11/20 10/26/21 gabapentin 400 mg capsule 1 cap PO TID 09/11/20 10/26/21 metformin 1,000 mg tablet 1 tab PO BIDWM 09/11/20 10/26/21 insulin glargine 100 unit/mL 15 unit subcut DAILY 10/26/21 10/26/21 subcutaneous solution (Lantus U-100 Insulin) metoprolol tartrate 25 mg tablet 1 tab PO BID 10/26/21 10/26/21 Previous Rx's Medication Instructions Recorded aspirin 81 mg tablet,delayed 81 mg PO DAILY #30 tabs 11/04/20 release doxycycline monohydrate 100 mg 100 mg PO BID #10 caps 10/29/21 capsule furosemide 40 mg tablet (Lasix) 40 mg PO BID 30 days #60 tabs 10/29/21 Allergies Allergy/AdvReac Type Severity Reaction Status Date / Time Penicillins [PCN] Allergy Unknown UNKNOWN Verified 11/01/21 00:18 Review of Systems Review of Systems: Intoxicated Yes all other systems are reviewed and are negative PMFSH Past Medical History Medical History A-fib Acute on chronic combined systolic and diastolic congestive heart failure Alcohol use disorder, severe, dependence Alcoholic intoxication Atrial fibrillation, rapid CAD (coronary artery disease) Cardiomyopathy CHF (congestive heart failure) Cirrhosis Depression Diabetes ETOH abuse HTN (hypertension) Hyperglycemia Family History Family History Other Diabetes Social History Social History Household Members: None Housing: Homeless Housing Other:: rents room Do you presently have visiting nurse or other home services: No Unable to assess alcohol history related to: Refusing to respond Alcohol intake: current Alcohol intake frequency: 3 or more drinks per day Alcohol type: beer and hard liquor Patient Tobacco Use Status: Never used Tobacco Tobacco use type: Cigarette Cigarettes Per Day: 2 Second Hand Smoke Exposure: No service: No Current occupational status: unemployed and disabled Physical Exam ED Vital Signs: Vital Signs - 24 hr 11/01/21 00:16 11/01/21 02:14 Pulse Rate 105 H 102 H Respiratory Rate 16 17 Blood Pressure 126/75 122/81 Pulse Oximetry 97 93 Oxygen Delivery Method Room Air Room Air BMI result Body Mass Index 40.3 Const General: intoxicated appearing HENPA Head: Yes normal to inspection, Yes No palpable skull fracture present, Yes normocephalic, Yes atraumatic and No abrasion Ears: hearing grossly normal bilaterally, external ears normal, TM's normal bilaterally, TM normal on the right, TM normal on the left, EAC's normal, mastoids normal and no periauricular adenopathy Eyes General: appearance normal, both eyes and all related structures Neck Neck: Yes normal visual inspection, Yes full ROM, Yes no lymphadenopathy, Yes trachea midline, Yes supple, No anterior neck swelling and No tender Chest Chest palpation & inspection: normal inspection of the chest and normal palpation of entire chest wall Resp Effort & Inspection: normal respiratory effort and able to speak in complete sentences Cardio Jugular venous distension: no JVD Heart sounds: S1 normal heart sound present and S2 normal heart sound present GI Inspection: Yes normal to inspection and No abdominal wall ecchymosis Palpation (GI): Soft to palpation, not firm, nontender, no guarding and not rigid General: No CVA tenderness and Yes no CVA tenderness Back/Spine/Pelvis Back: no CVA tenderness, No CVA tenderness and No back tenderness Skin General skin exam: no rashes or lesions noted and elasticity normal Neuro Other: intoxicated Extrem General: Yes normal to inspection and Yes full ROM Psych Appearance: grossly normal, well kempt and not disheveled Course Course Course Narrative: patient intoxicated. Patient will be left in the ED for observation. Alcohol smelled on breath and clothes alcohol on breath Reevaluation(s) Reevaluation #1: Case signed out to Dr. Ly to do discharge when sober. Medical Decision Making MDM Narrative Medical decision making narrative: Alcohol abuse Discharge Plan Discharge Clinical Impression: Alcohol intoxication Patient Disposition: Home, Self-Care Instructions: Alcohol Intoxication (ED), Abuse of Alcohol (ED) Additional Instructions: please follow-up with the primary care provider, and outpatient detox programs. Return to the ED for any suicidal / homicidal ideation, auditory / visual hallucinations, any physical complaints, or any other concerning symptoms. Prescriptions: No Action atorvastatin 40 mg tablet 1 tab PO BEDTIME gabapentin 400 mg capsule 1 cap PO TID metformin 1,000 mg tablet 1 tab PO BIDWM aspirin 81 mg Tablet,Delayed Release (Dr/Ec) 81 mg PO DAILY Qty: 30 0RF metoprolol tartrate 25 mg tablet 1 tab PO BID insulin glargine [Lantus U-100 Insulin] 100 unit/mL solution 15 unit subcut DAILY doxycycline monohydrate 100 mg capsule 100 mg PO BID Qty: 10 0RF furosemide [Lasix] 40 mg tablet 40 mg PO BID 30 Days Qty: 60 0RF Print Language: Nigerian
[2021-11-01 04:49] VITALS: BP 132/74; PULSE 106; RESP 18; O2SAT 94
== END 2021-11-01 07:07 | disposition home or self-care (01) ==
PROVIDERS: Emergency Provider Internal Medicine
DX: F10.129 Alcohol abuse with intoxication, unspecified (principal); Y90.9 Presence of alcohol in blood, level not specified; Z79.899 Other long term (current) drug therapy; F17.210 Nicotine dependence, cigarettes, uncomplicated; Z71.6 Tobacco abuse counseling; Z71.41 Alcohol abuse counseling and surveillance of alcoholic; E11.9 Type 2 diabetes mellitus without complications; Z79.4 Long term (current) use of insulin
CPT/HCPCS: 99283

== ENCOUNTER 2021-11-02 02:45 | Emergency (ER) | payer MEDICARE, MEDICAID, SELFPAY ==
[2021-11-02 02:53] VITALS: BP 139/91; PULSE 97; RESP 166; TEMP 36.6; O2SAT 99; BMI 36.3
[2021-11-02 02:55] VITALS: BP 139/91; PULSE 97; RESP 16; TEMP 36.6; O2SAT 99
--- NOTE | 2021-11-02 04:11 | ED.ALCOHOL ---
HPI - Alcohol General Chief Complaint: ETOH/Substance Use Stated Complaint: etoh Time Seen by Provider: 11/02/21 04:11 Source: patient and EMS Mode of arrival: EMS Limitations: no limitations History of Present Illness HPI narrative: Patient with frequent ED visits for alcohol intoxication [place] PD called EMS patient seems to be intoxicated no signs of injury no vomiting Related Data Home Medications Medication Instructions Recorded Confirmed atorvastatin 40 mg tablet 1 tab PO BEDTIME 09/11/20 10/26/21 gabapentin 400 mg capsule 1 cap PO TID 09/11/20 10/26/21 metformin 1,000 mg tablet 1 tab PO BIDWM 09/11/20 10/26/21 insulin glargine 100 unit/mL 15 unit subcut DAILY 10/26/21 10/26/21 subcutaneous solution (Lantus U-100 Insulin) metoprolol tartrate 25 mg tablet 1 tab PO BID 10/26/21 10/26/21 Previous Rx's Medication Instructions Recorded aspirin 81 mg tablet,delayed 81 mg PO DAILY #30 tabs 11/04/20 release doxycycline monohydrate 100 mg 100 mg PO BID #10 caps 10/29/21 capsule furosemide 40 mg tablet (Lasix) 40 mg PO BID 30 days #60 tabs 10/29/21 Allergies Allergy/AdvReac Type Severity Reaction Status Date / Time Penicillins [PCN] Allergy Unknown UNKNOWN Verified 11/01/21 00:18 Review of Systems Review of Systems: Yes all other systems are reviewed and are negative [facility] Past Medical History Medical History A-fib Acute on chronic combined systolic and diastolic congestive heart failure Alcohol use disorder, severe, dependence Alcoholic intoxication Atrial fibrillation, rapid CAD (coronary artery disease) Cardiomyopathy CHF (congestive heart failure) Cirrhosis Depression Diabetes ETOH abuse HTN (hypertension) Hyperglycemia Family History Family History Other Diabetes Social History Social History Household Members: None Housing: Homeless Housing Other:: rents room Do you presently have visiting nurse or other home services: No Unable to assess alcohol history related to: Refusing to respond Alcohol intake: current Alcohol intake frequency: 3 or more drinks per day Alcohol type: beer and hard liquor Patient Tobacco Use Status: Never used Tobacco Tobacco use type: Cigarette Cigarettes Per Day: 2 Second Hand Smoke Exposure: No Use of substances other than those prescribed or required for medical reasons: No Advance Directives: No service: No Current occupational status: unemployed and disabled Physical Exam ED Vital Signs: Vital Signs - 24 hr 11/02/21 02:53 11/02/21 02:55 Temperature 97.8 F 97.8 F Pulse Rate 97 97 Respiratory Rate 166 H 16 Blood Pressure 139/91 H 139/91 H Pulse Oximetry 99 99 Oxygen Delivery Method Room Air Room Air BMI result Body Mass Index 36.3 Appearance: Alert. Oriented X3. No acute distress. Intoxicated Eyes: PERRLA, No Nystagmus HEENT: Pharynx normal. Oral Mucosa moist atraumatic normocephalic Neck: Normal inspection. Neck supple. CVS: Normal heart rate and rhythm. Pulses normal. Respiratory: No respiratory distress. Equal air entry bilateral, no wheezing/rales/rhonchi Abdomen: Soft and nontender. Bowel sounds are present, no mass palpable, no CVA tenderness Skin: Skin warm and dry. Normal skin color. Normal skin turgor. Extremities: No lower extremity edema. No calf tenderness Neuro: Oriented X 3. No motor deficit. No sensory deficit.No cerebellar signs , cranial nerves II-XII intact MDM - Alcohol MDM Narrative Medical decision making narrative: Patient walking in a steady gait will discharge patient home Discharge Plan Discharge Clinical Impression: Alcohol abuse Patient Disposition: Home, Self-Care Instructions: Abuse of Alcohol (ED) Additional Instructions: Stop drinking alcohol and follow up with detox Prescriptions: No Action atorvastatin 40 mg tablet 1 tab PO BEDTIME gabapentin 400 mg capsule 1 cap PO TID metformin 1,000 mg tablet 1 tab PO BIDWM aspirin 81 mg Tablet,Delayed Release (Dr/Ec) 81 mg PO DAILY Qty: 30 0RF metoprolol tartrate 25 mg tablet 1 tab PO BID insulin glargine [Lantus U-100 Insulin] 100 unit/mL solution 15 unit subcut DAILY doxycycline monohydrate 100 mg capsule 100 mg PO BID Qty: 10 0RF furosemide [Lasix] 40 mg tablet 40 mg PO BID 30 Days Qty: 60 0RF Interventions: ED Discharge Assessment Last Done: 11/02/21 06:23 Discharge Date/Time: 11/02/21 06:24
== END 2021-11-02 06:24 | disposition home or self-care (01) ==
PROVIDERS: Emergency Provider Internal Medicine
DX: F10.10 Alcohol abuse, uncomplicated (principal); Y90.9 Presence of alcohol in blood, level not specified; I11.0 Hypertensive heart disease with heart failure; I50.9 Heart failure, unspecified; I48.91 Unspecified atrial fibrillation; F17.210 Nicotine dependence, cigarettes, uncomplicated; Z79.02 Long term (current) use of antithrombotics/antiplatelets; Z79.4 Long term (current) use of insulin
CPT/HCPCS: 99282; 99284

== ENCOUNTER 2021-11-03 02:50 | Emergency (ER) | payer MEDICARE, MEDICAID, SELFPAY ==
[2021-11-03 02:54] VITALS: BP 132/82; BP 139/72; PULSE 95; PULSE 98; RESP 16; TEMP 36.9; O2SAT 100; O2SAT 96; BMI 38.9
--- NOTE | 2021-11-03 04:38 | ECG_ITS ---
Test Reason : TACHYCARDIA Blood Pressure : / mmHG Vent. Rate : 113 BPM Atrial Rate : 000 BPM P-R Int : 000 ms QRS Dur : 096 ms QT Int : 360 ms P-R-T Axes : 000 -73 051 degrees QTc Int : 493 ms Atrial fibrillation with rapid ventricular response Left axis deviation Low voltage QRS Inferior infarct (cited on or before 02-JUL-2016) Cannot rule out Anterior infarct (cited on or before 02-JUL-2016) Abnormal ECG When compared with ECG of 26-OCT-2021 00:47, No significant change was found Referred By: Veronica Quiles Electronically Signed By:COLIN LLAMAS MD
--- NOTE | 2021-11-03 04:49 | ED.ALCOHOL ---
HPI - Alcohol General Chief Complaint: ETOH/Substance Use Stated Complaint: etoh Time Seen by Provider: 11/03/21 04:36 Source: EMS Mode of arrival: EMS Limitations: other (Intoxicated) History of Present Illness HPI narrative: Patient comes to the emergency room complaining of alcohol intoxication. Patient was found at the bar, intoxicated. Patient was here yesterday for the same reason. Patient states he did not fall, does not have chest pain, no shortness of breath. Related Data Home Medications Medication Instructions Recorded Confirmed atorvastatin 40 mg tablet 1 tab PO BEDTIME 09/11/20 10/26/21 gabapentin 400 mg capsule 1 cap PO TID 09/11/20 10/26/21 metformin 1,000 mg tablet 1 tab PO BIDWM 09/11/20 10/26/21 insulin glargine 100 unit/mL 15 unit subcut DAILY 10/26/21 10/26/21 subcutaneous solution (Lantus U-100 Insulin) metoprolol tartrate 25 mg tablet 1 tab PO BID 10/26/21 10/26/21 Previous Rx's Medication Instructions Recorded aspirin 81 mg tablet,delayed 81 mg PO DAILY #30 tabs 11/04/20 release doxycycline monohydrate 100 mg 100 mg PO BID #10 caps 10/29/21 capsule furosemide 40 mg tablet (Lasix) 40 mg PO BID 30 days #60 tabs 10/29/21 Allergies Allergy/AdvReac Type Severity Reaction Status Date / Time Penicillins [PCN] Allergy Unknown UNKNOWN Verified 11/01/21 00:18 Review of Systems Review of Systems: Constitutional : No fatigue ENT/Mouth : No Hearing loss, No Ear Pain, No Nasal Congestion, No Sinus Pain, No Hoarseness, No sore throat, No Rhinorrhea, No Swallowing Difficulty Eyes: No Eye Pain, No Swelling, No Redness, No Foreign Body, No Discharge, No Vision Changes Cardiovascular : No Chest Pain, No SOB, No Dyspnea on Exertion, No Orthopnea, No Edema, No Palpitations Respiratory : No Cough, No Sputum, No Wheezing, No Smoke Exposure, No Dyspnea Gastrointestinal : No Nausea, No Vomiting, No Diarrhea, No Constipation, No abdominal Pain, No Hematochezia, No Melena Genitourinary : no irregular bleeding, No Dysuria, No Urinary Frequency, No Hematuria, No Urinary Incontinence, No Urgency, No Flank Pain, No Urinary Flow Changes, No Hesitancy Musculoskeletal : No joint pain, No Myalgias, No Joint Swelling Skin : No Skin Lesions, No rash Neuro : No Weakness, No Numbness, No Paresthesias, No Loss of Consciousness, No Dizziness, No Headache Psych : No Anxiety/Panic, No Depression, No SI/HI/AH/VH, No Social Issues, Heme/Lymph: No Bruising, No Bleeding,No Lymphadenopathy Endocrine : No Polyuria, No Polydipsia, No Temperature Intolerance [facility] Past Medical History Medical History A-fib Acute on chronic combined systolic and diastolic congestive heart failure Alcohol use disorder, severe, dependence Alcoholic intoxication Atrial fibrillation, rapid CAD (coronary artery disease) Cardiomyopathy CHF (congestive heart failure) Cirrhosis Depression Diabetes ETOH abuse HTN (hypertension) Hyperglycemia Family History Family History Other Diabetes Social History Social History Household Members: None Housing: Homeless Housing Other:: rents room Do you presently have visiting nurse or other home services: No Unable to assess alcohol history related to: Refusing to respond Alcohol intake: current Alcohol intake frequency: 3 or more drinks per day Alcohol type: beer and hard liquor Patient Tobacco Use Status: Never used Tobacco Tobacco use type: Cigarette Cigarettes Per Day: 2 Second Hand Smoke Exposure: No Advance Directives: Yes Advance Directives on File: Yes Advance Directives Date on File: 12/01/20 service: No Current occupational status: unemployed and disabled Physical Exam ED Vital Signs: Vital Signs - 24 hr 11/03/21 02:54 Temperature 98.5 F Pulse Rate 95 Respiratory Rate 16 Blood Pressure 139/72 Pulse Oximetry 96 Oxygen Delivery Method Room Air BMI result Body Mass Index 38.9 Const Other: Appearance: Alert. Oriented X2. No acute distress. Intoxicated Eyes: Pupils equal, round and reactive to light. ENT: Pharynx normal. Neck: Normal inspection. Neck supple. No lymph nodes noted. No crepitus CVS: Normal heart rate and rhythm. Pulses normal. Normal S1 and S2 Respiratory: No respiratory distress. Breath sounds normal. No Wheezing. No rales Abdomen: Soft and nontender. No rigidity. No distention. Skin: Skin warm and dry. Normal skin color. Normal skin turgor. Extremities: No lower extremity edema. No Lacerations. No Rash Neuro: No slurred speech. CN 2 through 12 grossly intact Psych: calm, cooperative, intoxicated Course Course Course Narrative: Patient is intoxicated, but is calm and cooperative. Patient's heart rate ranges 110, patient is known to have atrial fibrillation. At this time, patient is somnolent, easily arousable, heart rate in the low 90s Plan: Metabolize to freedom Physician observation started at 04:50 Discharge Plan Discharge Clinical Impression: Alcoholic intoxication Patient Disposition: Still a Patient Prescriptions: No Action atorvastatin 40 mg tablet 1 tab PO BEDTIME gabapentin 400 mg capsule 1 cap PO TID metformin 1,000 mg tablet 1 tab PO BIDWM aspirin 81 mg Tablet,Delayed Release (Dr/Ec) 81 mg PO DAILY Qty: 30 0RF metoprolol tartrate 25 mg tablet 1 tab PO BID insulin glargine [Lantus U-100 Insulin] 100 unit/mL solution 15 unit subcut DAILY doxycycline monohydrate 100 mg capsule 100 mg PO BID Qty: 10 0RF furosemide [Lasix] 40 mg tablet 40 mg PO BID 30 Days Qty: 60 0RF
[2021-11-03 04:53] VITALS: BP 128/77; PULSE 118; RESP 16; O2SAT 96
[2021-11-03 05:02] LABS: Glucose, Whole Blood 225 mg/dL (60-115)
[2021-11-03 05:46] VITALS: BP 123/83; PULSE 99; RESP 15; TEMP 36.2; O2SAT 98
--- NOTE | 2021-11-03 06:52 | PC.NURSE ---
report given to CROW Casillas
--- NOTE | 2021-11-03 08:05 | PC.NURSE ---
Pt steady on feet to bathroom with cane
== END 2021-11-03 08:42 | disposition home or self-care (01) ==
PROVIDERS: Emergency Provider Emergency Medicine
DX: F10.220 Alcohol dependence with intoxication, uncomplicated (principal); Y90.9 Presence of alcohol in blood, level not specified; E11.9 Type 2 diabetes mellitus without complications; I11.0 Hypertensive heart disease with heart failure; I50.9 Heart failure, unspecified; I48.91 Unspecified atrial fibrillation; F17.210 Nicotine dependence, cigarettes, uncomplicated; Z79.4 Long term (current) use of insulin; Z79.02 Long term (current) use of antithrombotics/antiplatelets; Z79.82 Long term (current) use of aspirin; Z79.899 Other long term (current) drug therapy
CPT/HCPCS: 82947; 93005; 99283; 99284

== ENCOUNTER 2021-11-07 06:50 | Emergency (ER) | payer MEDICARE, MEDICAID, SELFPAY ==
--- NOTE | ~2021-11-07 | XR_ITS ---
EXAMINATION: XR CHEST CLINICAL INFORMATION: Edema COMPARISON: 10/26/2021 TECHNIQUE: Frontal view of the chest was obtained. FINDINGS: Again seen is diffuse interstitial prominence. Small right pleural effusion likely present. No left pleural effusion. Cardiac silhouette remains enlarged. XR/XR chest 1V IMPRESSION: Again seen is diffuse interstitial prominence. This could reflect pulmonary edema, bronchitis, or interstitial pneumonitis. This appearance can be seen chronically with chronic bronchitis or reactive airways disease.
[2021-11-07 08:32] VITALS: BP 142/70; PULSE 110; RESP 16; TEMP 36.6; O2SAT 96; BMI 34.5
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
--- NOTE | 2021-11-07 14:04 | ECG_ITS ---
Test Reason : WEAKNESS Blood Pressure : / mmHG Vent. Rate : 097 BPM Atrial Rate : 000 BPM P-R Int : 000 ms QRS Dur : 102 ms QT Int : 376 ms P-R-T Axes : 000 -69 070 degrees QTc Int : 477 ms Atrial fibrillation with premature ventricular or aberrantly conducted complexes Left axis deviation Low voltage QRS Inferior infarct (cited on or before 02-JUL-2016) Cannot rule out Anterior infarct (cited on or before 02-JUL-2016) Abnormal ECG When compared with ECG of 03-NOV-2021 04:45, No significant change was found Referred By: Cat Joy Electronically Signed By:David Ernandez
[2021-11-07 15:29] LABS: COVID-19 Test Negative (Negative)
[2021-11-07 16:32] LABS: MANUAL DIFF FLAG NO
[2021-11-07 16:36] LABS: Basophils Percent Auto 0.6 % (0-2); Eosinophils Absolute Auto 0.1 X10*3/uL (0.0-0.4); Eosinophils Percent Auto 1.2 % (0-4); Hematocrit 40.8 % (42.0-52.0); Hemoglobin 13.2 g/dl (14.0-18.0); Imm Gran Abs Auto 0.02 X10*3/uL (0.00-0.03); Imm Gran Pct Auto 0.3 % (0.0-0.4); Mean Corpuscular HGB Conc 32.4 g/dl (31.0-36.0); Mean Corpuscular Hemoglobin 32.1 pg (27.0-33.0); Mean Corpuscular Volume 99.3 fL (80.0-98.0); Mean Platelet Volume 9.5 fL (9.4-12.4); Monocytes Absolute Auto 0.5 X10*3/uL (0.1-1.2); Monocytes Percent Auto 7.4 % (2-11); Neutrophils Percent Auto 75.5 % (45-73); Platelet Count 157 X10*3/uL (160-400); Red Blood Count 4.11 X10*6/uL (4.60-5.80); White Blood Count 6.6 X10*3/uL (4.8-10.8)
[2021-11-07 16:52] LABS: Anion Gap 14 (12-20); B Type Natriuretic Peptide 87 pg/mL (<100); Blood Urea Nitrogen 7 mg/dL (9-16); Calcium 8.9 mg/dL (8.4-10.2); Carbon Dioxide 25 mmol/L (22-29); Chloride 103 mmol/L (96-108); Estimated Glomerular Filt Rate > 60; Ethanol < 10 mg/dL; Glucose Random 227 mg/dL (60-115); Potassium 4.1 mmol/L (3.3-5.1); Sodium 138 mmol/L (135-145)
[2021-11-07 16:57] LABS: Prothrombin Time 11.5 SEC (10.0-13.1)
[2021-11-07] MEDS: Furosemide 40 MG TABLET PO (17:05)
[2021-11-07] MEDS: Metoprolol Tartrate 50 MG TABLET PO (17:05)
[2021-11-07] MEDS: Magnesium Oxide 400 MG TABLET 800 MG PO (17:05)
[2021-11-07] MEDS: LORazepam 1 MG TABLET PO (17:05)
[2021-11-07 17:07] VITALS: BP 147/94; PULSE 97; RESP 18; O2SAT 97
--- NOTE | 2021-11-07 17:26 | PHA.MEDREC ---
Pharmacy Consult ? Medication Reconciliation Pharmacy has completed the medication reconciliation.
[2021-11-07 17:33] LABS: Amphetamine Screen Urine Not Detected (Not Detect); Barbiturates, Urine POSITIVE (Not Detect); Benzodiazepines Screen Urine Not Detected (Not Detect); Cannabinoid Screen Urine POSITIVE (Not Detect); Cocaine Screen Urine Not Detected (Not Detect); Fentanyl, urine Not Detected (Not Detect); Opiate Screen Urine Not Detected (Not Detect); Phencyclidine Screen Urine Not Detected (Not Detect)
[2021-11-07 20:21] VITALS: BP 120/59; PULSE 84; RESP 16; O2SAT 100
[2021-11-07] MEDS: Calcium Gluconate/NaCl,Iso-Osm 1 GM/50 ML PLAST..BAG IV (20:45)
[2021-11-07 21:28] LABS: Anion Gap 11 (12-20); Blood Urea Nitrogen 7 mg/dL (9-16); Calcium 8.4 mg/dL (8.4-10.2); Carbon Dioxide 27 mmol/L (22-29); Chloride 105 mmol/L (96-108); Creatinine Clr Calc Pharmacy 129.1; Estimated Glomerular Filt Rate > 60; Glucose Random 202 mg/dL (60-115); Magnesium 1.6 mg/dL (1.6-2.6); Potassium 4.2 mmol/L (3.3-5.1); Sodium 139 mmol/L (135-145)
[2021-11-07 21:49] LABS: TSH reflex Free T4 1.93 uIU/mL (0.32-4.0)
[2021-11-07 23:32] VITALS: BP 143/80; PULSE 95; RESP 18; TEMP 37.2; O2SAT 96
--- NOTE | 2021-11-08 04:26 | PC.NURSE ---
I assumed nursing care of Sabino at 1900. Luc came to the ED for evaluation of B/L LE edema and was requesting to be placed in a SNF stating he is homeless. he is remaining in the ED until he can have a case management eval for possible placement. Sabino has been sleeping but wakes to verbal stimuli at which time he is oriented x 3. He makes eye contact with staff and is able to verbalize his needs adequately. He is primarily cymro speaking. Respirations are non-labored, he speaks in full sentences without difficulty, no cyanosis. Sabino is aware that he is awaiting a case management eval. We will continue to monitor Sabino.
[2021-11-08 06:20] VITALS: BP 137/73; PULSE 100; RESP 12; TEMP 36.5; O2SAT 96
[2021-11-08 09:24] VITALS: BP 137/73; PULSE 100; O2SAT 96
[2021-11-08 09:58] VITALS: BP 137/70; PULSE 108; RESP 20; O2SAT 98
[2021-11-08 10:02] LABS: Glucose, Whole Blood 213 mg/dL (60-115)
[2021-11-08] MEDS: metFORMIN HCl 1,000 MG TABLET 1000 MG PO ×2 (10:06→15:54)
[2021-11-08] MEDS: Gabapentin 400 MG CAPSULE PO ×3 (10:06→20:16)
[2021-11-08] MEDS: Insulin Glargine,Hum.rec.anlog 100 UNIT/ML 10 ML VIAL 15 UNIT SUBCUT (10:07)
[2021-11-08] MEDS: Metoprolol Tartrate 25 MG TABLET PO ×2 (10:07→20:16)
[2021-11-08] MEDS: Aspirin Enteric Coated 81 MG TABLET.DR PO (10:07)
[2021-11-08] MEDS: Furosemide 40 MG TABLET PO ×2 (10:07→15:54)
--- NOTE | 2021-11-08 12:29 | MHC.RECOVRN ---
Met with pt in overflow 9, utilizing weight control engineer, to discuss substance use. Pt reports alcohol use daily since discharging from previous rehab on 10/09. Pt reports 6 beers and 3-4 nips of rum daily, last drink 11/07. Pt denies withdrawal symptoms, however, reports cravings for alcohol. Pt does not appear to be experiencing withdrawal. Pt reports strong desire to not drink due to health complications and is future oriented, denies SI/HI/AH/VH. T/w provided education regarding local resources and supports. Denies questions or concerns at this time. T/w available as needed.
[2021-11-08 13:22] VITALS: BP 124/81; PULSE 84; RESP 18; TEMP 36.7; O2SAT 96
--- NOTE | 2021-11-08 13:25 | PC.NURSE ---
patient brought from ed bed 22 into room 9 on overflow, patient a&o upon daniela mullen, currently patient denying pain, diabetic diet, saw pt today per report- suggesting rehab, call lucero within reach, will continue to monitor
--- NOTE | 2021-11-08 16:12 | MHC.CM.ED ---
Received case management consult from Julienne JAVIER. Patient came to the ER due to weakness. Work up essentially negative. Physical therapy eval completed. Short term rehab is recommended. Met with patient in regards to discharge plannning. Patient is currently homeless. Does not have a PCP. Copy of HCP verified to be on file. Patient is vaccinated and received 1 Covid booster. Patient has been to a couple of short term rehabs in the past. Referral broadcasted in [facility]. [facility] is only facility that can offer a bed. Patient is agreeable. Patient needs a [facility] PASRR Level 2. This has already been obtained. Covid PCR test ordered at [facility]'s request. If negative, patient can transfer to [facility] on 11/09 at 10am via BLS. Continue to monitor for d/c needs.
[2021-11-08 18:07] LABS: Glucose, Whole Blood 190 mg/dL (60-115)
[2021-11-08] MEDS: Atorvastatin Calcium 40 MG TABLET PO (20:16)
[2021-11-08 20:24] VITALS: BP 126/83; PULSE 100; RESP 20; TEMP 36.6; O2SAT 99
[2021-11-08 20:25] LABS: Glucose, Whole Blood 173 mg/dL (60-115)
--- NOTE | 2021-11-08 21:46 | PC.NURSE ---
patient a&ox3, no c/o pain or discomfort, pt medicated per order, vss, pt ambulated to bathroom with stby assist and walker, call luceor within reach, will continue to monitor.
[2021-11-08 23:43] VITALS: BP 136/78; PULSE 98; RESP 18; TEMP 36.9; O2SAT 93
[2021-11-09 00:22] LABS: Influenza A PCR NEGATIVE (Negative); Influenza B PCR NEGATIVE (Negative); Resp Syncy Virus RNA Qual PCR NEGATIVE (Negative); SARS COV2 PCR INHOUSE NEGATIVE (Negative)
[2021-11-09 06:07] VITALS: BP 144/74; PULSE 95; RESP 16; TEMP 37.1; O2SAT 96
[2021-11-09 07:20] LABS: Glucose, Whole Blood 225 mg/dL (60-115)
[2021-11-09] MEDS: Furosemide 40 MG TABLET PO (09:02)
[2021-11-09] MEDS: Gabapentin 400 MG CAPSULE PO (09:02)
[2021-11-09] MEDS: Metoprolol Tartrate 25 MG TABLET PO (09:02)
[2021-11-09] MEDS: metFORMIN HCl 1,000 MG TABLET 1000 MG PO (09:02)
[2021-11-09] MEDS: Insulin Glargine,Hum.rec.anlog 100 UNIT/ML 10 ML VIAL 15 UNIT SUBCUT (09:03)
[2021-11-09] MEDS: Aspirin Enteric Coated 81 MG TABLET.DR PO (09:36)
--- NOTE | 2021-11-09 09:36 | MHC.CM.ED ---
Patient remains in ER overflow. PCR Covid is negative. Patient will transfer to [facility] via BLS at 10am. Patient, Joan MARIA and Evette MANDUJANO aware. Continue to monitor for d/c needs.
--- NOTE | 2021-11-09 09:37 | PC.NURSE ---
0900-pt assessed. BLE edema, non-pitting +2/3, numbness present. Numbness present in RUE fingers as well. pulses +1 pedal, +2 radial. lung sounds clear A&P throughout. abdomen round and obese, bowel sounds present. Pt ate 100% of breakfast and consumed 240 ml fluids. GCS 15. BEAVER. urinated 540 ml of clear, yellow urine. Assembly Machine Tender used for communication.
--- NOTE | 2021-11-09 09:56 | PC.NURSE ---
0955-IV removed and was intact. discharge instructions printed in omani and reviewed with patient via manager of pmo. questions answered.
--- NOTE | 2021-11-09 11:44 | PC.NURSE ---
1140-ems here for transport of patient. Verbal report given to EMS and paperwork. Pt transported via EMS cart.
[2021-11-13 21:21] LABS: Parathyroid Hormone Related Pr 8 pg/mL (11-20)
--- NOTE | 2021-12-04 14:16 | MHC.CM.PN ---
POST DISCHARGE NOTE PASRR LEVEL II DETERMINATION RECEIVED AND UPLOADED INTO [facility] UNDER [id number] 11/07/21 ADMISSION.
== END 2021-11-09 11:40 | disposition skilled nursing facility (03) ==
PROVIDERS: Nurse Practitioner Family; Emergency Provider Emergency Medicine
DX: R53.1 Weakness (principal); R60.0 Localized edema; I25.10 Atherosclerotic heart disease of native coronary artery without angina pectoris; F10.10 Alcohol abuse, uncomplicated; E11.9 Type 2 diabetes mellitus without complications; Y90.9 Presence of alcohol in blood, level not specified; Z20.822 Contact with and (suspected) exposure to COVID-19; Z79.4 Long term (current) use of insulin; Z91.14 Patient's other noncompliance with medication regimen; F17.210 Nicotine dependence, cigarettes, uncomplicated; Z71.6 Tobacco abuse counseling; Z79.899 Other long term (current) drug therapy; Z79.82 Long term (current) use of aspirin
CPT/HCPCS: 0241U; 36415; 71045; 80048; 80307; 82077; 82947; 83519; 83735; 83880; 84443; 84484; 85025; 85610; 87635; 93005; 96365; 97162; 99285; J0610

== ENCOUNTER 2021-12-12 00:45 | Emergency (ER) | payer MEDICARE, MEDICAID, SELFPAY ==
[2021-12-12] VITALS (8 sets, daily range): BP systolic 140–170; BP diastolic 73–95; PULSE 71–128; RESP 16–18; TEMP 36.9–37.1; O2SAT 95–100; BMI 39.5
--- NOTE | 2021-12-12 00:55 | ECG_ITS ---
Test Reason : PALPITATIONS Blood Pressure : / mmHG Vent. Rate : 105 BPM Atrial Rate : 000 BPM P-R Int : 000 ms QRS Dur : 100 ms QT Int : 370 ms P-R-T Axes : 000 -76 077 degrees QTc Int : 489 ms Atrial fibrillation with rapid ventricular response Left axis deviation Inferior infarct (cited on or before 02-JUL-2016) Anterior infarct (cited on or before 02-JUL-2016) Abnormal ECG When compared with ECG of 07-NOV-2021 15:04, No significant change was found Referred By: Veronica Quiles Electronically Signed By:VICENTE PAUL
--- NOTE | 2021-12-12 01:01 | ED_ITS ---
HPI - Alcohol General Chief Complaint: ETOH/Substance Use Stated Complaint: etoh with palpations Time Seen by Provider: 12/12/21 00:54 Source: patient and EMS Mode of arrival: EMS Limitations: no limitations History of Present Illness HPI narrative: Patient comes to the emergency room complaining alcohol intoxication. Patient states that he might have drank up to 7 drinks tonight. Patient was found by police department sitting on the ground meaning against the wall. Patient states that he did not fall, he did not lose consciousness. Patient denies chest pain or shortness of breath. Patient complaining of chronic lower extremity edema. Patient denies SI or HI Related Data Home Medications Medication Instructions Recorded Confirmed atorvastatin 40 mg tablet 1 tab PO BEDTIME 09/11/20 11/07/21 gabapentin 400 mg capsule 1 cap PO TID 09/11/20 11/07/21 metformin 1,000 mg tablet 1 tab PO BIDWM 09/11/20 11/07/21 insulin glargine 100 unit/mL 15 unit subcut DAILY 10/26/21 11/07/21 subcutaneous solution (Lantus U-100 Insulin) metoprolol tartrate 25 mg tablet 1 tab PO BID 10/26/21 11/07/21 furosemide 40 mg tablet (Lasix) 40 mg PO BIDWM 11/07/21 11/07/21 Previous Rx's Medication Instructions Recorded aspirin 81 mg tablet,delayed 81 mg PO DAILY #30 tabs 11/04/20 release Allergies Allergy/AdvReac Type Severity Reaction Status Date / Time Penicillins [PCN] Allergy Unknown UNKNOWN Verified 12/12/21 00:59 Review of Systems Review of Systems: Constitutional : No Weight loss, No Fever, No Chills, No Night Sweats, No Fatigue, No Malaise ENT/Mouth : No Hearing loss, No Ear Pain, No Nasal Congestion, No Sinus Pain, No Hoarseness, No sore throat, No Rhinorrhea, No Swallowing Difficulty Eyes: No Eye Pain, No Swelling, No Redness, No Foreign Body, No Discharge, No Vision Changes Cardiovascular : No Chest Pain, No SOB, No Dyspnea on Exertion, No Orthopnea, no palpitations, complaining of lower extremity edema Respiratory : No Cough, No Sputum, No Wheezing, No Smoke Exposure, No Dyspnea Gastrointestinal : No Nausea, No Vomiting, No Diarrhea, No Constipation, No abdominal Pain, No Hematochezia, No Melena Genitourinary : no irregular bleeding, No Dysuria, No Urinary Frequency, No Hematuria, No Urinary Incontinence, No Urgency, No Flank Pain, No Urinary Flow Changes, No Hesitancy Musculoskeletal : No joint pain, No Myalgias, No Joint Swelling Skin : No Skin Lesions, No rash Neuro : No Weakness, No Numbness, No Paresthesias, No Loss of Consciousness, No Dizziness, No Headache Psych : No Anxiety/Panic, No Depression, No SI/HI/AH/VH, complaining of alcohol abuse Heme/Lymph: No Bruising, No Bleeding,No Lymphadenopathy Endocrine : No Polyuria, No Polydipsia, No Temperature Intolerance [facility] Past Medical History Medical History A-fib Acute on chronic combined systolic and diastolic congestive heart failure Alcohol use disorder, severe, dependence Alcoholic intoxication Atrial fibrillation, rapid CAD (coronary artery disease) Cardiomyopathy CHF (congestive heart failure) Cirrhosis Depression Diabetes ETOH abuse HTN (hypertension) Hyperglycemia Family History Family History Other Diabetes Social History Social History Household Members: None Housing: Homeless Housing Other:: rents room Do you presently have visiting nurse or other home services: No Unable to assess alcohol history related to: Refusing to respond Alcohol intake: current Alcohol intake frequency: 3 or more drinks per day Alcohol type: beer and hard liquor Patient Tobacco Use Status: Never used Tobacco Tobacco use type: Cigarette Cigarettes Per Day: 2 Second Hand Smoke Exposure: No Advance Directives: Yes Advance Directives on File: Yes Advance Directives Date on File: 12/01/20 service: No Current occupational status: unemployed and disabled Physical Exam ED Vital Signs: Vital Signs - 24 hr 12/12/21 01:03 12/12/21 01:27 12/12/21 02:03 Temperature 98.7 F Pulse Rate 99 98 Respiratory Rate 18 18 18 Blood Pressure 140/89 H 142/88 H Pulse Oximetry 97 97 Oxygen Delivery Method Room Air Room Air 12/12/21 04:43 12/12/21 05:26 12/12/21 05:45 Temperature Pulse Rate 110 H 128 H 111 H Respiratory Rate 18 18 18 Blood Pressure 160/82 H 165/93 H 159/95 H Pulse Oximetry 95 95 95 Oxygen Delivery Method Room Air Room Air Room Air BMI result Body Mass Index 39.5 Const Other: Appearance: Alert. Oriented X3. No acute distress. Intoxicated, slurred s peech Eyes: Pupils equal, round and reactive to light. ENT: Pharynx normal. Neck: Normal inspection. Neck supple. No lymph nodes noted. No crepitus CVS: Normal heart rate and rhythm. Pulses normal. Normal S1 and S2 Respiratory: No respiratory distress. Breath sounds normal. No Wheezing. No rales Abdomen: Soft and nontender. No rigidity. No distention. Skin: Skin warm and dry. Normal skin color. Normal skin turgor. Extremities: No lower extremity edema. No Lacerations. No Rash Neuro: Oriented X 3. No motor deficit. No sensory deficit. Moving all extremities. Slurred speech due to alcohol intoxication, no drooping of the mouth, CN 2 through 12 grossly intact Psych: calm, cooperative, normal affect, intoxicated Course Course Course Narrative: Labs pending. Patient resting comfortably in bed. Patient has been giving a total of 15 units insulin. 25 mg of metoprolol tartrate, also given potassium chloride 40 mEq for hypokalemia. Labs were repeated, potassium improved. Troponin x2 stable, no chest pain, no shortness of breath Patient is sleeping comfortably. No signs of withdrawal. Plan: Metabolize to freedom Physician ulceration started that 545 a.m. MDM - Alcohol Lab Data Result diagrams: 12/12/21 01:20 12/12/21 04:38 Labs: Lab Results 12/12/21 12/12/21 12/12/21 Range/Units 01:20 01:20 01:20 WBC 9.9 (4.8-10.8) X10*3/uL RBC 3.63 L (4.60-5.80) X10*6/uL Hgb 11.5 L (14.0-18.0) g/dl Hct 34.2 L (42.0-52.0) % MCV 94.2 (80.0-98.0) fL MCH 31.7 (27.0-33.0) pg MCHC 33.6 (31.0-36.0) g/dl RDW 13.6 (11.0-16.0) % Plt Count 135 L (160-400) X10*3/uL MPV 10.1 (9.4-12.4) fL Immature Gran % (Auto) 0.4 (0.0-0.4) % Neut % (Auto) 71.1 (45-73) % Lymph % (Auto) 17.3 L (20-40) % [place] % (Auto) 9.4 (2-11) % Eos % (Auto) 1.4 (0-4) % Baso % (Auto) 0.4 (0-2) % Lymph # (Auto) 1.7 (1.2-4.9) X10*3/uL [place] # (Auto) 0.9 (0.1-1.2) X10*3/uL Eos # (Auto) 0.1 (0.0-0.4) X10*3/uL Baso # (Auto) 0.0 (0.0-0.2) X10*3/uL Abs Immat Gran (auto) 0.04 H (0.00-0.03) X10*3/uL Absolute Neuts (auto) 7.1 (2.0-8.3) x10*3/uL Absolute Nucleated RBC 0.000 (0.0-0.012) X10*3/uL Nucleated RBC % (auto) 0.0 (0.0-0.2) /100WBC Sodium 139 (135-145) mmol/L Potassium 3.1 L D (3.3-5.1) mmol/L Chloride 102 (96-108) mmol/L Carbon Dioxide 20 L (22-29) mmol/L Anion Gap 20 (12-20) BUN 9 (9-16) mg/dL Creatinine 0.90 (0.5-1.4) mg/dL Estim Creat Clear Calc 119.2 Estimated GFR > 60 POC Glucose (60-115) mg/dL Random Glucose 370 H* (60-115) mg/dL Calcium 8.8 (8.4-10.2) mg/dL Troponin I High Sens 42.7 H D (<3.5-35.0) ng/L B-Natriuretic Peptide (<100) pg/mL Ethyl Alcohol 199 mg/dL COVID-19 (CHRISTI) (Negative) COVID-19 Clin Com 12/12/21 12/12/2122 Range/Units 01:20 01:20 02:53 WBC (4.8-10.8) X10*3/uL RBC (4.60-5.80) X10*6/uL Hgb (14.0-18.0) g/dl Hct (42.0-52.0) % MCV (80.0-98.0) fL MCH (27.0-33.0) pg MCHC (31.0-36.0) g/dl RDW (11.0-16.0) % Plt Count (160-400) X10*3/uL MPV (9.4-12.4) fL Immature Gran % (Auto) (0.0-0.4) % Neut % (Auto) (45-73) % Lymph % (Auto) (20-40) % [place] % (Auto) (2-11) % Eos % (Auto) (0-4) % Baso % (Auto) (0-2) % Lymph # (Auto) (1.2-4.9) X10*3/uL [place] # (Auto) (0.1-1.2) X10*3/uL Eos # (Auto) (0.0-0.4) X10*3/uL Baso # (Auto) (0.0-0.2) X10*3/uL Abs Immat Gran (auto) (0.00-0.03) X10*3/uL Absolute Neuts (auto) (2.0-8.3) x10*3/uL Absolute Nucleated RBC (0.0-0.012) X10*3/uL Nucleated RBC % (auto) (0.0-0.2) /100WBC Sodium (135-145) mmol/L Potassium (3.3-5.1) mmol/L Chloride (96-108) mmol/L Carbon Dioxide (22-29) mmol/L Anion Gap (12-20) BUN (9-16) mg/dL Creatinine (0.5-1.4) mg/dL Estim Creat Clear Calc Estimated GFR POC Glucose 321 H (60-115) mg/dL Random Glucose (60-115) mg/dL Calcium (8.4-10.2) mg/dL Troponin I High Sens (<3.5-35.0) ng/L B-Natriuretic Peptide 99 (<100) pg/mL Ethyl Alcohol mg/dL COVID-19 (CHRISTI) Negative (Negative) COVID-19 Clin Com See Note 12/12/21 12/12/21 Range/Units 04:38 04:38 WBC (4.8-10.8) X10*3/uL RBC (4.60-5.80) X10*6/uL Hgb (14.0-18.0) g/dl Hct (42.0-52.0) % MCV (80.0-98.0) fL MCH (27.0-33.0) pg MCHC (31.0-36.0) g/dl RDW (11.0-16.0) % Plt Count (160-400) X10*3/uL MPV (9.4-12.4) fL Immature Gran % (Auto) (0.0-0.4) % Neut % (Auto) (45-73) % Lymph % (Auto) (20-40) % [place] % (Auto) (2-11) % Eos % (Auto) (0-4) % Baso % (Auto) (0-2) % Lymph # (Auto) (1.2-4.9) X10*3/uL [place] # (Auto) (0.1-1.2) X10*3/uL Eos # (Auto) (0.0-0.4) X10*3/uL Baso # (Auto) (0.0-0.2) X10*3/uL Abs Immat Gran (auto) (0.00-0.03) X10*3/uL Absolute Neuts (auto) (2.0-8.3) x10*3/uL Absolute Nucleated RBC (0.0-0.012) X10*3/uL Nucleated RBC % (auto) (0.0-0.2) /100WBC Sodium 139 (135-145) mmol/L Potassium 3.4 (3.3-5.1) mmol/L Chloride 104 (96-108) mmol/L Carbon Dioxide 21 L (22-29) mmol/L Anion Gap 17 (12-20) BUN 10 (9-16) mg/dL Creatinine 0.79 (0.5-1.4) mg/dL Estim Creat Clear Calc 135.8 Estimated GFR > 60 POC Glucose (60-115) mg/dL Random Glucose 318 H (60-115) mg/dL Calcium 8.8 (8.4-10.2) mg/dL Troponin I High Sens 46.8 H (<3.5-35.0) ng/L B-Natriuretic Peptide (<100) pg/mL Ethyl Alcohol mg/dL COVID-19 (CHRISTI) (Negative) COVID-19 Clin Com Discharge Plan Discharge Clinical Impression: Alcohol intoxication, Hypokalemia, Hyperglycemia Patient Disposition: Still a Patient Prescriptions: No Action atorvastatin 40 mg tablet 1 tab PO BEDTIME gabapentin 400 mg capsule 1 cap PO TID metformin 1,000 mg tablet 1 tab PO BIDWM aspirin 81 mg Tablet,Delayed Release (Dr/Ec) 81 mg PO DAILY Qty: 30 0RF metoprolol tartrate 25 mg tablet 1 tab PO BID insulin glargine [Lantus U-100 Insulin] 100 unit/mL solution 15 unit subcut DAILY furosemide [Lasix] 40 mg tablet 40 mg PO BIDWM
--- NOTE | 2021-12-12 01:30 | PC.NURSE ---
pt sleeping, cardiac surgeon - afib w RVR, hx of same w ETOH, other vss, resting comfortably, RR even and unlabored. labs drawn by tech, no new orders at this time.
[2021-12-12 01:31] LABS: MANUAL DIFF FLAG NO
[2021-12-12 01:32] LABS: Basophils Percent Auto 0.4 % (0-2); Eosinophils Absolute Auto 0.1 X10*3/uL (0.0-0.4); Eosinophils Percent Auto 1.4 % (0-4); Hematocrit 34.2 % (42.0-52.0); Hemoglobin 11.5 g/dl (14.0-18.0); Imm Gran Abs Auto 0.04 X10*3/uL (0.00-0.03); Imm Gran Pct Auto 0.4 % (0.0-0.4); Lymphocytes Absolute Auto 1.7 X10*3/uL (1.2-4.9); Lymphocytes Percent Auto 17.3 % (20-40); Mean Corpuscular HGB Conc 33.6 g/dl (31.0-36.0); Mean Corpuscular Hemoglobin 31.7 pg (27.0-33.0); Mean Corpuscular Volume 94.2 fL (80.0-98.0); Mean Platelet Volume 10.1 fL (9.4-12.4); Monocytes Absolute Auto 0.9 X10*3/uL (0.1-1.2); Monocytes Percent Auto 9.4 % (2-11); Neutrophils Absolute Auto 7.1 x10*3/uL (2.0-8.3); Neutrophils Percent Auto 71.1 % (45-73); Platelet Count 135 X10*3/uL (160-400); Red Blood Count 3.63 X10*6/uL (4.60-5.80); Red Cell Distribution Width 13.6 % (11.0-16.0); White Blood Count 9.9 X10*3/uL (4.8-10.8)
[2021-12-12 01:55] LABS: Anion Gap 20 (12-20); Blood Urea Nitrogen 9 mg/dL (9-16); COVID-19 Test Negative (Negative); Calcium 8.8 mg/dL (8.4-10.2); Carbon Dioxide 20 mmol/L (22-29); Chloride 102 mmol/L (96-108); Creatinine Clr Calc Pharmacy 119.2; Estimated Glomerular Filt Rate > 60; Ethanol 199 mg/dL; Glucose Random 370 mg/dL (60-115); Potassium 3.1 mmol/L (3.3-5.1); Sodium 139 mmol/L (135-145)
[2021-12-12 01:59] LABS: B Type Natriuretic Peptide 99 pg/mL (<100); Troponin-I High Sensitivity 42.7 ng/L (<3.5-35.0)
[2021-12-12] MEDS: Insulin Lispro 100 UNIT/ML 3 ML VIAL 10 UNIT SUBCUT (02:26)
[2021-12-12] MEDS: Potassium Chloride Packet 20 MEQ PACKET 40 MEQ PO (02:26)
[2021-12-12 02:56] LABS: Glucose, Whole Blood 321 mg/dL (60-115)
--- NOTE | 2021-12-12 03:17 | PC.NURSE ---
RN assumed care of patient at this time.
[2021-12-12 04:59] LABS: Anion Gap 17 (12-20); Blood Urea Nitrogen 10 mg/dL (9-16); Calcium 8.8 mg/dL (8.4-10.2); Carbon Dioxide 21 mmol/L (22-29); Chloride 104 mmol/L (96-108); Creatinine Clr Calc Pharmacy 135.8; Estimated Glomerular Filt Rate > 60; Glucose Random 318 mg/dL (60-115); Potassium 3.4 mmol/L (3.3-5.1); Sodium 139 mmol/L (135-145)
[2021-12-12 05:07] LABS: Troponin-I High Sensitivity 46.8 ng/L (<3.5-35.0)
[2021-12-12] MEDS: Metoprolol Tartrate 25 MG TABLET PO (05:22)
[2021-12-12] MEDS: Insulin Lispro 100 UNIT/ML 3 ML VIAL SUBCUT (05:24)
[2021-12-12 08:40] LABS: Glucose, Whole Blood 248 mg/dL (60-115)
== END 2021-12-12 10:05 | disposition home or self-care (01) ==
PROVIDERS: Emergency Provider Emergency Medicine
DX: R00.2 Palpitations (principal); F10.129 Alcohol abuse with intoxication, unspecified; F17.210 Nicotine dependence, cigarettes, uncomplicated; E87.6 Hypokalemia; E11.65 Type 2 diabetes mellitus with hyperglycemia; Y90.6 Blood alcohol level of 120-199 mg/100 ml; Z71.6 Tobacco abuse counseling; Z79.899 Other long term (current) drug therapy; Z20.822 Contact with and (suspected) exposure to COVID-19; Z79.4 Long term (current) use of insulin
CPT/HCPCS: 36415; 80048; 82077; 82947; 83880; 84484; 85025; 87635; 93005; 99283; 99284

== ENCOUNTER 2021-12-13 03:01 | Inpatient (IN) | payer MEDICARE, MEDICAID, SELFPAY ==
[2021-12-13] VITALS (7 sets, daily range): BP systolic 148–195; BP diastolic 81–99; PULSE 100–125; RESP 16–45; TEMP 36.6–36.8; O2SAT 3–99; BMI 37.3
--- NOTE | 2021-12-13 | ECG_ITS ---
Test Reason : tachycardia Blood Pressure : / mmHG Vent. Rate : 103 BPM Atrial Rate : 000 BPM P-R Int : 000 ms QRS Dur : 092 ms QT Int : 370 ms P-R-T Axes : 000 -66 061 degrees QTc Int : 484 ms Atrial fibrillation with rapid ventricular response Left axis deviation Low voltage QRS Incomplete right bundle branch block Possible Anterolateral infarct (cited on or before 02-JUL-2016) Abnormal ECG When compared with ECG of 12-DEC-2021 00:51, Incomplete right bundle branch block is now Present Questionable change in initial forces of Lateral leads Referred By: Lucio Wynn Electronically Signed By:VICENTE PAUL
--- NOTE | ~2021-12-13 | XR_ITS ---
EXAMINATION: XR CHEST CLINICAL INFORMATION: Shortness of breath COMPARISON: Chest radiograph from 12/13/2021 TECHNIQUE: Frontal view of the chest was obtained. FINDINGS: Similar-appearing prominence of the pulmonary vasculature. Blunting the right costophrenic recess suggesting a trace pleural effusion. No pneumothorax. Trachea is midline. Cardiomediastinal silhouette is enlarged and stable. Osseous structures are intact. Soft tissues are unremarkable. XR/XR chest 1V IMPRESSION: 1. Similar-appearing prominence of the pulmonary vasculature. 2. Blunting the right costophrenic recess suggesting a trace pleural effusion.
--- NOTE | ~2021-12-13 | XR_ITS ---
EXAMINATION: XR CHEST CLINICAL INFORMATION: Shortness of breath, atrial fibrillation. COMPARISON: 11/07/2021 chest radiograph. TECHNIQUE: Frontal view of the chest was obtained. FINDINGS: There are increased pulmonary vascular markings. Minimal blunting of the right costophrenic angle. The heart is mildly enlarged. The mediastinal structures are unremarkable. XR/XR chest 1V IMPRESSION: Mild CHF and very small right pleural effusion appear mildly increased.
[2021-12-13 06:34] LABS: MANUAL DIFF FLAG NO
[2021-12-13 06:39] LABS: Basophils Percent Auto 0.5 % (0-2); Eosinophils Absolute Auto 0.1 X10*3/uL (0.0-0.4); Eosinophils Percent Auto 2.4 % (0-4); Hematocrit 35.8 % (42.0-52.0); Imm Gran Abs Auto 0.04 X10*3/uL (0.00-0.03); Imm Gran Pct Auto 0.7 % (0.0-0.4); Lymphocytes Absolute Auto 1.4 X10*3/uL (1.2-4.9); Lymphocytes Percent Auto 23.9 % (20-40); Mean Corpuscular HGB Conc 33.5 g/dl (31.0-36.0); Mean Corpuscular Hemoglobin 31.7 pg (27.0-33.0); Mean Corpuscular Volume 94.5 fL (80.0-98.0); Mean Platelet Volume 10.7 fL (9.4-12.4); Monocytes Absolute Auto 0.5 X10*3/uL (0.1-1.2); Monocytes Percent Auto 8.7 % (2-11); Neutrophils Absolute Auto 3.7 x10*3/uL (2.0-8.3); Neutrophils Percent Auto 63.8 % (45-73); Platelet Count 124 X10*3/uL (160-400); Red Blood Count 3.79 X10*6/uL (4.60-5.80); Red Cell Distribution Width 13.8 % (11.0-16.0); White Blood Count 5.7 X10*3/uL (4.8-10.8)
[2021-12-13 06:59] LABS: Alanine Aminotransferase 22 U/L (0-40); Albumin Level 3.8 g/dL (3.5-5.0); Alkaline Phosphatase 99 U/L (39-117); Anion Gap 18 (12-20); Aspartate Amino Transferase 22 U/L (5-37); Bilirubin Total 0.6 mg/dL (0.0-1.0); Blood Urea Nitrogen 7 mg/dL (9-16); Calcium 8.9 mg/dL (8.4-10.2); Carbon Dioxide 22 mmol/L (22-29); Chloride 104 mmol/L (96-108); Creatinine Clr Calc Pharmacy 153.2; Estimated Glomerular Filt Rate > 60; Ethanol 129 mg/dL; Glucose Random 313 mg/dL (60-115); Potassium 3.7 mmol/L (3.3-5.1); Sodium 140 mmol/L (135-145); Total Protein 7.4 g/dL (6.5-8.0)
[2021-12-13 07:04] LABS: Troponin-I High Sensitivity 26.2 ng/L (<3.5-35.0)
[2021-12-13] MEDS: Furosemide 40 MG TABLET 80 MG PO (11:17)
[2021-12-13] MEDS: LORazepam 1 MG TABLET PO (11:20)
--- NOTE | 2021-12-13 11:22 | PC.NURSE ---
Assessed pt per CIWA scale and administered meds per MAR. Mild tremors observed, pt alert and oriented x4. Pt expressed interest in a detox program. Pt c/o liver pain and described his chest pain as feeling as he is suffocating . 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
--- NOTE | 2021-12-13 15:00 | MHC.RECOVRN ---
Addendum entered by Mariama De La Paz, [facility] 12/13/21 18:11: [facility] has been notified that the pt will be admitted to this hospital and no longer needs a detox bed. Original Note: T/W met w/ pt, interpretation provided via Raven MARIA. Pt alert to verbal stimuli. T/W and pt discussed ATS referral placed to [facility] in [place], informed pt that [facility] would provide transporation. Pt agreeable to [facility]. T/W confirmed w/ [facility] pt has been registered and will be doing the next part of the process the phone intake, which t/w will facilitate.
--- NOTE | 2021-12-13 15:57 | ECG_ITS ---
Test Reason : ETOH / CHF Blood Pressure : / mmHG Vent. Rate : 115 BPM Atrial Rate : 000 BPM P-R Int : 000 ms QRS Dur : 086 ms QT Int : 304 ms P-R-T Axes : 000 -57 069 degrees QTc Int : 420 ms Atrial fibrillation with rapid ventricular response Left axis deviation Low voltage QRS Cannot rule out Inferior infarct , age undetermined Cannot rule out Anterior infarct (cited on or before 02-JUL-2016) Abnormal ECG When compared with ECG of 13-DEC-2021 05:36, Incomplete right bundle branch block is no longer Present Referred By: Malcolm Cardenas Electronically Signed By:VICENTE PAUL
[2021-12-13] MEDS: Albuterol Sulfate (0.083%) 2.5 MG/3 ML VIAL.NEB 5 MG INHALE (16:19)
[2021-12-13] MEDS: Midazolam HCl/PF 2 MG/2 ML VIAL IVPUSH (16:39)
--- NOTE | 2021-12-13 16:42 | ED.ALCOHOL ---
HPI - Alcohol General Chief Complaint: ETOH/Substance Use Time Seen by Provider: 12/13/21 10:29 Source: patient and other (Sign-out from Dr. Edwards/) Limitations: language barrier (Mongolian speaking only, japanese interpreter used) History of Present Illness HPI narrative: I received sign-out on this patient from my colleague, Dr. Lucio Wynn at 10:00 hours. This chart is a continuation of the down time paper chart that was initially created by Dr. Wynn The patient was initially seen by Dr. Wynn at 04:20 hours. Initially presented for evaluation of by lower extremity leg pain which is secondary to his chronic neuropathy. He also was unsteady on his feet, had alcohol in his breath and was found to be in atrial fibrillation with a a ventricular rate of 104 beats per minute. The patient appeared to be lethargic and intoxicated. He was found your and irregular heart rate consistent with his atrial fibrillation. The yet chronic skin changes to his lower extremity with edema to both lower extremities. The patient did develop ventricular rate in the 140 range in was given Cardizem ER 240 mg orally. The patient's chest x-ray did reveal cardiomegaly with increased interstitial markings consistent with pulmonary edema years treated with Lasix 80 mg orally. The patient did appear to have alcohol withdrawal with tremors an elevated CIWA scores. He was initially treated with oral Ativan. The patient requested evaluation for detox. He was seen by our excellence coach. While this process was underway, the patient appear to have increased withdrawal, he became more tremulous and continued to have elevated CIWA scores. Patient also had increased shortness of breath. On my examination he did appear to be tachypneic, he had diffuse wheezing and rales at the bases. I ordered an albuterol 5 mg nebulizer, Versed 2 mg IV. Chest x-ray was obtained and the patient chest x-ray was similar to the 1 done earlier in the day and reveals congestive heart failure, therefore I ordered Lasix 40 mg IV you patient's withdrawal appears to be worsening I did the phenobarbital intermuscular protocol. Repeat EKG revealed atrial fibrillation with a ventricular rate of [address] segment elevation or depression. Related Data Home Medications Medication Instructions Recorded Confirmed atorvastatin 40 mg tablet 1 tab PO BEDTIME 09/11/20 11/07/21 gabapentin 400 mg capsule 1 cap PO TID 09/11/20 11/07/21 metformin 1,000 mg tablet 1 tab PO BIDWM 09/11/20 11/07/21 insulin glargine 100 unit/mL 15 unit subcut DAILY 10/26/21 11/07/21 subcutaneous solution (Lantus U-100 Insulin) metoprolol tartrate 25 mg tablet 1 tab PO BID 10/26/21 11/07/21 furosemide 40 mg tablet (Lasix) 40 mg PO BIDWM 11/07/21 11/07/21 Previous Rx's Medication Instructions Recorded aspirin 81 mg tablet,delayed 81 mg PO DAILY #30 tabs 11/04/20 release Allergies Allergy/AdvReac Type Severity Reaction Status Date / Time Penicillins [PCN] Allergy Unknown UNKNOWN Verified 12/12/21 00:59 Review of Systems Review of Systems: Yes all other systems are reviewed and are negative [facility] Past Medical History [facility] Narrative: Past medical history: Reviewed below, patient has an EF of 15%, alcohol cirrhosis, chronic ETOH abuse. Social history: The patient is homeless. Patient drinks anywhere from 3-10 alcoholic beverages per day. The patient smokes cigarettes daily. He denies drug use. Medical History A-fib Acute on chronic combined systolic and diastolic congestive heart failure Alcohol use disorder, severe, dependence Alcoholic intoxication Atrial fibrillation, rapid CAD (coronary artery disease) Cardiomyopathy CHF (congestive heart failure) Cirrhosis Depression Diabetes ETOH abuse HTN (hypertension) Hyperglycemia Family History Family History Other Diabetes Social History Social History Household Members: None Housing: Homeless Housing Other:: rents room Do you presently have visiting nurse or other home services: No Unable to assess alcohol history related to: Refusing to respond Alcohol intake: current Alcohol intake frequency: 3 or more drinks per day Alcohol type: beer and hard liquor Patient Tobacco Use Status: Never used Tobacco Tobacco use type: Cigarette Cigarettes Per Day: 2 Second Hand Smoke Exposure: No Use of substances other than those prescribed or required for medical reasons: No Substance Use Frequency: Chronic Longstanding Last Used Substance: Hours (ago) Any prior treatment program specific to substance use: Yes Advance Directives: Yes Advance Directives on File: Yes Advance Directives Date on File: 12/01/20 service: No Current occupational status: unemployed and disabled Physical Exam ED Vital Signs: Vital Signs - 24 hr 12/13/21 06:14 12/13/21 06:34 12/13/21 10:57 Temperature 98.2 F Pulse Rate 100 117 H 108 H Respiratory Rate 16 20 30 H Blood Pressure 148/99 H Pulse Oximetry 97 99 Oxygen Delivery Method Room Air Nasal Cannula Oxygen Flow Rate 2 12/13/21 13:49 12/13/21 15:54 12/13/21 16:13 Temperature 97.9 F 97.8 F Pulse Rate 108 H 125 H 114 H Respiratory Rate 39 H 45 H 32 H Blood Pressure 174/91 H 195/96 H Pulse Oximetry 93 94 Oxygen Delivery Method Nasal Cannula Nasal Cannula Oxygen Flow Rate 2 2 BMI result Body Mass Index 37.3 Const Other: Awake, alert male patient, tremulous, answers questions appropriately, tachypneic HENMT Head: Yes normal to inspection, Yes normocephalic and Yes atraumatic Ears: external ears normal General nose exam: Normal external nose present Face and sinus: Yes normal facial exam Mouth: Normal oral and palatal mucosa present Throat: Yes posterior oropharynx normal Eyes General: appearance normal, both eyes and all related structures Pupils: Equal, round and reactive pupils present Neck Neck: Yes normal visual inspection, Yes no lymphadenopathy, Yes trachea midline and Yes supple Chest Chest palpation & inspection: normal inspection of the chest and normal palpation of entire chest wall Resp Other: Patient is using accessory muscles to breathe, he appears to be tachypneic, lungs revealed symmetric breath sounds with rales at the bases diffuse wheezing with no rhonchi Cardio Rate: regular rate Rhythm: regular rhythm Heart sounds: S1 normal heart sound present, S2 normal heart sound present and no murmurs GI Inspection: Yes normal to inspection Palpation (GI): Soft to palpation, nontender and no guarding Auscultation: normal bowel sounds General: Yes no CVA tenderness Back/Spine/Pelvis Back: no CVA tenderness Skin General skin exam: no rashes or lesions noted Neuro Cranial nerves: Yes CN's II-XII intact bilaterally and Yes Equal, round and reactive pupils present Cognition (Neuro): normal cognition Motor exam (neuro): 5/5 motor strength present throughout Extrem Other: 1+ pitting edema, brawny skin changes Psych Appearance: grossly normal Speech and movement: Normal speech and movement present Affect: normal affect Attitude: cooperative Thought process: Normal thought process present Thought content: Normal thought content present Course Course Course Narrative: 61-year-old male who initially presented to emergency department for evaluation of bilateral lower extremity pain and alcohol intoxication. Patient does have a history of atrial fibrillation and did have an elevated ventricular rate at 1 point was treated with oral heart is an ER 240 mg. Patient was found at have pulmonary edema and was given oral Lasix. He did request detox while he was waiting to get a detox bed, the patient developed increased alcohol withdrawal to the point where he is having elevated CIWA score. He was treated with oral Ativan and Versed IV. Patient also appears to have increased congestive heart failure therefore I ordered Lasix 40 mg IV. I also ordered a phenobarbital protocol for the patient. 1705: laboratory evaluation revealed chronic anemia with an H&H of 12 and 35 point with a normal WBC of 5700. Glucose elevated at 313. Ethanol level was elevated 129. Initial troponin was 26.2. I will repeat this. I will also add a BNP. COVID-19 was negative. 1718: I did discuss the patient's presentation with the covering hospitalist, Dr. Corona and the patient will be admitted to the [facility] [place] management MDM - Alcohol Medical Records Attestation: I reviewed the patient's medical records. Lab Data Attestation: I reviewed the patient's lab results. Result diagrams: 12/13/21 06:08 12/13/21 06:08 Labs: Lab Results 12/13/21 12/13/21 12/13/21 Range/Units 06:08 06:08 06:08 WBC 5.7 (4.8-10.8) X10*3/uL RBC 3.79 L (4.60-5.80) X10*6/uL Hgb 12.0 L (14.0-18.0) g/dl Hct 35.8 L (42.0-52.0) % MCV 94.5 (80.0-98.0) fL MCH 31.7 (27.0-33.0) pg MCHC 33.5 (31.0-36.0) g/dl RDW 13.8 (11.0-16.0) % Plt Count 124 L (160-400) X10*3/uL MPV 10.7 (9.4-12.4) fL Immature Gran % (Auto) 0.7 H (0.0-0.4) % Neut % (Auto) 63.8 (45-73) % Lymph % (Auto) 23.9 (20-40) % Lyman % (Auto) 8.7 (2-11) % Eos % (Auto) 2.4 (0-4) % Baso % (Auto) 0.5 (0-2) % Lymph # (Auto) 1.4 (1.2-4.9) X10*3/uL Lyman # (Auto) 0.5 (0.1-1.2) X10*3/uL Eos # (Auto) 0.1 (0.0-0.4) X10*3/uL Baso # (Auto) 0.0 (0.0-0.2) X10*3/uL Abs Immat Gran (auto) 0.04 H (0.00-0.03) X10*3/uL Absolute Neuts (auto) 3.7 (2.0-8.3) x10*3/uL Absolute Nucleated RBC 0.000 (0.0-0.012) X10*3/uL Nucleated RBC % (auto) 0.0 (0.0-0.2) /100WBC Sodium 140 (135-145) mmol/L Potassium 3.7 (3.3-5.1) mmol/L Chloride 104 (96-108) mmol/L Carbon Dioxide 22 (22-29) mmol/L Anion Gap 18 (12-20) BUN 7 L (9-16) mg/dL Creatinine 0.70 (0.5-1.4) mg/dL Estim Creat Clear Calc 153.2 Estimated GFR > 60 Random Glucose 313 H (60-115) mg/dL Calcium 8.9 (8.4-10.2) mg/dL Total Bilirubin 0.6 (0.0-1.0) mg/dL AST 22 D (5-37) U/L ALT 22 (0-40) U/L Alkaline Phosphatase 99 D (39-117) U/L Troponin I High Sens 26.2 (<3.5-35.0) ng/L Total Protein 7.4 (6.5-8.0) g/dL Albumin 3.8 (3.5-5.0) g/dL Ethyl Alcohol 129 mg/dL ECG Data ECG #1: Interpretation: 16 30: Atrial fibrillation with a rapid ventricular response of 115, no ST segment elevation, no ST segment depression, Q-waves in lead 3 and AVF and in lead V1 through V3, no ST segment elevation, no ST segment depression, no PACs, no PVCs. Procedures EJ/Peripheral Line Neck L: Time Out Performed: No Skin Cleansed in Sterile Fashion: Yes Size (gauge): 18 IV Secured and Dressing Applied: Yes Patient Tolerated Procedure: well Additional Comments: Left external jugular Discharge Plan Discharge Patient Disposition: Admitted As Inpatient
[2021-12-13] MEDS: Furosemide 40 MG/4 ML VIAL IVPUSH (17:37)
[2021-12-13 17:41] LABS: Troponin-I High Sensitivity 26.5 ng/L (<3.5-35.0)
[2021-12-13] MEDS: PHENobarbitaL sodium 130 MG/ML IM ONCE 310 MG IM (18:08)
--- NOTE | 2021-12-13 18:24 | PM.IMHP ---
History of Present Illness Date of Service: 12/13/21 Chief Complaint: alcohol withdrawal 61-year-old male with known history of alcohol abuse presented to the emergency room for evaluation of lower extremity leg pain secondary to chronic neuropathy. He was found to be intoxicated and in atrial fibrillation with a rapid ventricular response. He was given oral Cardizem; chest x-ray suspicious for CHF and he did receive Lasix 80 mg x 1. As the day progressed, he began to exhibit elevated CIWA scores treated with oral Ativan however needed IV Versed. At this point in time he is actively withdrawing has been started on the phenobarb protocol. 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 ) Denies chest pain Denies shortness of breath Denies nausea vomiting diarrhea Denies fever chil PMFSH Medical History (Updated 12/13/21 @ 18:30 by Filemon Corona DO) A-fib Acute on chronic combined systolic and diastolic congestive heart failure Alcohol use disorder, severe, dependence Alcoholic intoxication Atrial fibrillation, rapid CAD (coronary artery disease) Cardiomyopathy CHF (congestive heart failure) Cirrhosis Depression Diabetes ETOH abuse HTN (hypertension) Hyperglycemia Family History Other Diabetes Social History Household Members: None Housing: Homeless Housing Other:: rents room Do you presently have visiting nurse or other home services: No Unable to assess alcohol history related to: Refusing to respond Alcohol intake: current Alcohol intake frequency: 3 or more drinks per day Alcohol type: beer and hard liquor Patient Tobacco Use Status: Never used Tobacco Tobacco use type: Cigarette Cigarettes Per Day: 2 Second Hand Smoke Exposure: No Use of substances other than those prescribed or required for medical reasons: No Substance Use Frequency: Chronic Longstanding Last Used Substance: Hours (ago) Any prior treatment program specific to substance use: Yes Advance Directives: Yes Advance Directives on File: Yes Advance Directives Date on File: 12/01/20 service: No Current occupational status: unemployed and disabled Meds Allergies Allergy/AdvReac Type Severity Reaction Status Date / Time Penicillins [PCN] Allergy Unknown UNKNOWN Verified 12/12/21 00:59 Active Medications: Current Medications Acetaminophen (Acetaminophen 325 Mg Tablet) 650 mg PO Q6H PRN PRN Reason: Pain, Mild (Pain Scale 1-3) Enoxaparin Sodium (Enoxaparin Sodium 40 Mg/0.4 Ml Syringe) 40 mg SUBCUT Q24H FRANKY Ondansetron HCl (Ondansetron Hcl 4 Mg/2 Ml Vial) 4 mg IVPUSH Q8H PRN PRN Reason: Nausea and Vomiting Pharmacy Consult (Consult Rx Etoh Phenob Im/Po) 1 each MISCELLANE ONCE PRN; Protocol PRN Reason: Consult order Phenobarbital (Phenobarbital 30 Mg Tablet) 60 mg PO BID [facility] Stop: 12/15/21 21:01 Phenobarbital (Phenobarbital 30 Mg Tablet) 30 mg PO BID [facility] Stop: 12/17/21 21:01 Phenobarbital (Phenobarbital 30 Mg Tablet) 30 mg PO DAILY [facility] Stop: 12/19/21 09:01 Phenobarbital Sodium (Phenobarbital Sodium 130 Mg/Ml Vial Im Q3hx2) 232 mg IM Q3H [facility] Stop: 12/13/21 23:01 Sodium Chloride (0.9 % Sodium Chloride Flush 3 Ml Syringe) 3 ml IVFLUSH QSHIFT [facility] Home Medications Medication Instructions Recorded Confirmed Last Taken Type atorvastatin 40 mg tablet 1 tab PO BEDTIME 09/11/20 11/07/21 11/14/20 History gabapentin 400 mg capsule 1 cap PO TID 09/11/20 11/07/21 11/14/20 History metformin 1,000 mg tablet 1 tab PO BIDWM 09/11/20 11/07/21 11/14/20 History insulin glargine 100 unit/mL 15 unit subcut DAILY 10/26/21 11/07/21 Unknown History subcutaneous solution (Lantus U-100 Insulin) metoprolol tartrate 25 mg tablet 1 tab PO BID 10/26/21 11/07/21 Unknown History furosemide 40 mg tablet (Lasix) 40 mg PO BIDWM 11/07/21 11/07/21 Unknown History Physical Exam Vital Signs and Narrative: Vital Signs: Last Vital Signs Temp 97.8 F 12/13/21 15:54 Pulse 100 12/13/21 18:06 Resp 30 H 12/13/21 18:06 BP 162/81 H 12/13/21 18:06 Pulse Ox 3 L 12/13/21 18:06 O2 Del Method 12/13/21 18:06 O2 Flow Rate 2 12/13/21 15:54 BMI result Body Mass Index 37.3 Const: Other: alert, tremulous Resp: Other: clear to auscultation bilaterally no rales rhonchi or wheezes Cardio: Other: no S4; positive S1-S2; no S3 murmurs rubs or gallops. Irregularly irregular GI: Other: soft with positive bowel sounds Extrem: Other: no edema Results Labs CBC and Chem 7: 12/13/21 06:08 12/13/21 06:08 Labs: Laboratory Results - last 24 hr 12/13/21 12/13/21 06:08 06:08 MCV 94.5 MCH 31.7 MCHC 33.5 RDW 13.8 Plt Count 124 L MPV 10.7 Immature Gran % (Auto) 0.7 H Neut % (Auto) 63.8 Lymph % (Auto) 23.9 Rush % (Auto) 8.7 Eos % (Auto) 2.4 Baso % (Auto) 0.5 Lymph # (Auto) 1.4 Rush # (Auto) 0.5 Eos # (Auto) 0.1 Baso # (Auto) 0.0 Abs Immat Gran (auto) 0.04 H Absolute Neuts (auto) 3.7 Absolute Nucleated RBC 0.000 Nucleated RBC % (auto) 0.0 Anion Gap 18 Estim Creat Clear Calc 153.2 Estimated GFR > 60 Random Glucose 313 H Calcium 8.9 Total Bilirubin 0.6 AST 22 D ALT 22 Alkaline Phosphatase 99 D Total Protein 7.4 Albumin 3.8 Ethyl Alcohol 129 Imaging Radiologist's Impressions: Impressions Chest X-Ray 12/13/21 09:12 IMPRESSION: Mild CHF and very small right pleural effusion appear mildly increased. Chest X-Ray 12/13/21 16:25 IMPRESSION: 1. Similar-appearing prominence of the pulmonary vasculature. 2. Blunting the right costophrenic recess suggesting a trace pleural effusion. Assessment and Plan (1) Alcohol withdrawal: Status: Acute (2) A-fib: Status: Acute (3) CHF (congestive heart failure): Status: Acute (4) Diabetes: Status: Acute Plan 61-year-old male with known alcohol abuse presents with neuropathic pain however developed withdrawal symptoms while in emergency room. He presented with atrial fibrillation with rapid ventricular response to responded to Cardizem 1.Alcohol withdrawal - phenobarb protocol - observe on CIWA scale - care team consult in a.m. 2.Atrial fibrillation with rapid ventricular response -Does not examined in heart failure.... Will volume replete with normal saline. (pending BNP) -continue metoprolol at outpatient dosing 3.DMII - continue outpatient Lantus dosing - continue metformin - lispro correctional scale 4.Chronic systolic heart failure - last documented echo 08/29/2020. . . LVEF 10-15% - caution with fluids - controlled ventricular rate ( beta blockade /phenobarb protocol) full code Lovenox Requires at least 2 midnights going forward to treat alcohol withdrawal with phenobarb protocol. This cannot be done in a less acute setting Quality Stroke Does the patient have a stroke diagnosis?: No VTE Prior VTE?: No VTE Risk Level:: Medical - moderate - high VTE Device Contraindication: Treatment Not Indicated VTE Drug Contraindication: N/A - Med Ordered
[2021-12-13 18:56] LABS: B Type Natriuretic Peptide 43 pg/mL (<100)
[2021-12-13 19:07] LABS: COVID-19 Test Negative (Negative)
[2021-12-13] MEDS: Enoxaparin Sodium 40 MG/0.4 ML SYRINGE SUBCUT (20:28)
[2021-12-13] MEDS: PHENobarbitaL sodium 130 MG/ML VIAL IM Q3Hx2 232 MG IM ×2 (20:30→23:25)
[2021-12-13] MEDS: Acetaminophen 325 MG TABLET 650 MG PO (20:30)
[2021-12-13] MEDS: Metoprolol Tartrate 25 MG TABLET PO (20:30)
[2021-12-13] MEDS: 0.9 % Sodium Chloride 1,000 ML 100 ML IVCONT (20:31)
[2021-12-13] MEDS: Insulin Glargine,Hum.rec.anlog 100 UNIT/ML 10 ML VIAL 10 UNIT SUBCUT (20:35)
[2021-12-13 21:01] LABS: Hematocrit 35.6 % (42.0-52.0); Mean Corpuscular HGB Conc 33.7 g/dl (31.0-36.0); Mean Corpuscular Hemoglobin 31.3 pg (27.0-33.0); Mean Platelet Volume 10.3 fL (9.4-12.4); Platelet Count 166 X10*3/uL (160-400); Red Blood Count 3.83 X10*6/uL (4.60-5.80); Red Cell Distribution Width 13.8 % (11.0-16.0); White Blood Count 13.2 X10*3/uL (4.8-10.8)
[2021-12-13] MEDS: Insulin Lispro 100 UNIT/ML 3 ML VIAL SUBCUT (21:11)
[2021-12-13 21:18] LABS: Glucose, Whole Blood 284 mg/dL (60-115)
--- NOTE | 2021-12-13 21:46 | MHC.RECOVSUP ---
? Reason for consult:ETOH o Current location:ED13 o Identified substance use concern: - Withdrawal - Seeking ATS (detox) ? Intervention: o Harm reduction discussion ? Plan: o Follow up tomorrow ? Additional information:Pt was admitted, so I didn't start bedsearch. Pt is inm
--- NOTE | 2021-12-13 21:51 | MHC.RECOVSUP ---
? Reason for consult:ETOH o Current location:ED13 o Identified substance use concern: - Withdrawal - Seeking ATS (detox) ? Intervention: o Harm reduction discussion ? Plan: o Follow up tomorrow ? Additional information:PT is interested in going to detox, pt was admitted so I didn't start bedsearch. Please follow up in the am.
[2021-12-14] VITALS (7 sets, daily range): BP systolic 115–147; BP diastolic 78–93; PULSE 92–111; RESP 18–30; TEMP 36.6–37.9; O2SAT 94–99
[2021-12-14 06:38] LABS: MANUAL DIFF FLAG NO
[2021-12-14 06:44] LABS: Basophils Percent Auto 0.5 % (0-2); Eosinophils Absolute Auto 0.1 X10*3/uL (0.0-0.4); Eosinophils Percent Auto 1.5 % (0-4); Hematocrit 31.8 % (42.0-52.0); Hemoglobin 10.6 g/dl (14.0-18.0); Imm Gran Abs Auto 0.04 X10*3/uL (0.00-0.03); Imm Gran Pct Auto 0.5 % (0.0-0.4); Lymphocytes Absolute Auto 0.9 X10*3/uL (1.2-4.9); Mean Corpuscular HGB Conc 33.3 g/dl (31.0-36.0); Mean Corpuscular Hemoglobin 31.7 pg (27.0-33.0); Mean Corpuscular Volume 95.2 fL (80.0-98.0); Mean Platelet Volume 10.9 fL (9.4-12.4); Monocytes Absolute Auto 0.6 X10*3/uL (0.1-1.2); Monocytes Percent Auto 7.3 % (2-11); Neutrophils Absolute Auto 6.8 x10*3/uL (2.0-8.3); Neutrophils Percent Auto 79.2 % (45-73); Platelet Count 138 X10*3/uL (160-400); Red Blood Count 3.34 X10*6/uL (4.60-5.80); Red Cell Distribution Width 13.8 % (11.0-16.0); White Blood Count 8.6 X10*3/uL (4.8-10.8)
[2021-12-14 06:59] LABS: Alanine Aminotransferase 17 U/L (0-40); Albumin Level 3.4 g/dL (3.5-5.0); Alkaline Phosphatase 78 U/L (39-117); Anion Gap 16 (12-20); Aspartate Amino Transferase 17 U/L (5-37); Bilirubin Total 2.4 mg/dL (0.0-1.0); Blood Urea Nitrogen 11 mg/dL (9-16); Calcium 8.1 mg/dL (8.4-10.2); Carbon Dioxide 27 mmol/L (22-29); Chloride 95 mmol/L (96-108); Creatinine Clr Calc Pharmacy 151.1; Estimated Glomerular Filt Rate > 60; Glucose Fasting 263 mg/dL (60-99); Potassium 3.4 mmol/L (3.3-5.1); Sodium 135 mmol/L (135-145); Total Protein 6.6 g/dL (6.5-8.0)
[2021-12-14 07:43] LABS: Glucose, Whole Blood 240 mg/dL (60-115)
[2021-12-14] MEDS: Metoprolol Tartrate 25 MG TABLET PO ×2 (08:05→23:04)
[2021-12-14] MEDS: Insulin Lispro 100 UNIT/ML 3 ML VIAL SUBCUT ×4 (08:05→23:05)
[2021-12-14] MEDS: 0.9 % Sodium Chloride Flush 3 ML SYRINGE IVFLUSH (08:06)
[2021-12-14] MEDS: PHENobarbitaL 30 MG TABLET 60 MG PO ×2 (08:06→23:03)
--- NOTE | 2021-12-14 08:59 | PC.NURSE ---
pt seen by dr. baca aware of plan of care.
--- NOTE | 2021-12-14 09:05 | MHC.CM.PN ---
Patient is documented to be actively withdrawing from ETOH and HCP/Bhargavi is unavailable at [phone](no longer in service). Original IMM to be given to Patient and a copy to be placed on the chart. From chart review only: Patient is homeless and return to the community VS possible Care Team interventions is the tentative plan and CM has initiated and will follow for dc planning. PCP is Dr Vikki Torrez @ [facility] and Patient has received J&J vax and 1 Pfizer Booster.
--- NOTE | 2021-12-14 10:08 | PHA.MEDREC ---
Pharmacy Consult ? Medication Reconciliation Pharmacy has completed the medication reconciliation. Patient was a poor historian of medications. However, they brought all rx bottles with them to ED and medications were verified and cross - referenced with claim history. Patient could not confirm what insulin they were on or what dosage it was. Called pharmacy and they stated they had record from July 2020 for 6 units daily Lantus. Patient was recently discharged back on October 26 with 15 units Lantus at bedtime. Lantus dosage monitoring recommended due to patient's uncertainty.
[2021-12-14 13:46] LABS: Glucose, Whole Blood 237 mg/dL (60-115)
--- NOTE | 2021-12-14 13:52 | P.PNIM_ITS ---
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 Irregularly irregular GI: Other: soft with positive bowel sounds Extrem: Other: no edema Objective Data Active Medications Acetaminophen (Acetaminophen 325 Mg Tablet) 650 mg PO Q6H PRN PRN Reason: Pain, Mild (Pain Scale 1-3) Last Admin: 12/13/21 20:30 Dose: 650 mg Documented By: IBETH Enoxaparin Sodium (Enoxaparin Sodium 40 Mg/0.4 Ml Syringe) 40 mg SUBCUT Q24H [facility] Last Admin: 12/13/21 20:28 Dose: 40 mg Documented By: IBETH Sodium Chloride (Ns) 1,000 mls @ 100 mls/hr IVCONT .Q10H [facility] Last Admin: 12/14/21 05:23 Dose: Not Given Documented By: IBETH Non-Admin Reason: IV Running Insulin Glargine (Insulin Glargine,Hum.Rec.Anlog 100 Unit/Ml 10 Ml Vial) 10 unit SUBCUT BEDTIME [facility] Last Admin: 12/13/21 20:35 Dose: 10 unit Documented By: IBETH Insulin Human Lispro (Insulin Lispro 100 Unit/Ml 3 Ml Vial) 0 unit SUBCUT QIDACHS [facility]; Protocol Last Admin: 12/14/21 08:05 Dose: 4 unit Documented By: NAVJOT Metoprolol Tartrate (Metoprolol Tartrate 25 Mg Tablet) 25 mg PO BID [facility]; Protocol Last Admin: 12/14/21 08:05 Dose: 25 mg Documented By: NAVJOT Ondansetron HCl (Ondansetron Hcl 4 Mg/2 Ml Vial) 4 mg IVPUSH Q8H PRN PRN Reason: Nausea and Vomiting Pharmacy Consult (Consult Rx Etoh Phenob Im/Po) 1 each MISCELLANE ONCE PRN; Protocol PRN Reason: Consult order Pharmacy Consult (Consult Rx Perform Med Rec) 1 each MISCELLANE ONCE PRN PRN Reason: Consult order Phenobarbital (Phenobarbital 30 Mg Tablet) 60 mg PO BID [facility] Stop: 12/15/21 21:01 Last Admin: 12/14/21 08:06 Dose: 60 mg Documented By: NAVJOT Phenobarbital (Phenobarbital 30 Mg Tablet) 30 mg PO BID [facility] Stop: 12/17/21 21:01 Phenobarbital (Phenobarbital 30 Mg Tablet) 30 mg PO DAILY [facility] Stop: 12/19/21 09:01 Sodium Chloride (0.9 % Sodium Chloride Flush 3 Ml Syringe) 3 ml IVFLUSH QSHIFT [facility] Last Admin: 12/14/21 08:06 Dose: 3 ml Documented By: NAVJOT Labs CBC & Chem 7: 12/14/21 06:30 12/14/21 06:30 Labs: Laboratory Results - last 24 hr 12/13/21 12/13/21 12/13/21 17:12 18:30 20:48 MCV 93.0 MCH 31.3 MCHC 33.7 RDW 13.8 Plt Count 166 D MPV 10.3 Immature Gran % (Auto) Neut % (Auto) Lymph % (Auto) [place] % (Auto) Eos % (Auto) Baso % (Auto) Lymph # (Auto) [place] # (Auto) Eos # (Auto) Baso # (Auto) Abs Immat Gran (auto) Absolute Neuts (auto) Absolute Nucleated RBC 0.000 Nucleated RBC % (auto) 0.0 Anion Gap Estim Creat Clear Calc Estimated GFR POC Glucose Fasting Glucose Calcium Total Bilirubin AST ALT Alkaline Phosphatase B-Natriuretic Peptide 43 Total Protein Albumin COVID-19 (CHRISTI) Negative COVID-19 Clin Com See Note 12/13/21 12/14/21 12/14/21 21:00 06:30 06:30 MCV 95.2 MCH 31.7 MCHC 33.3 RDW 13.8 Plt Count 138 L MPV 10.9 Immature Gran % (Auto) 0.5 H Neut % (Auto) 79.2 H Lymph % (Auto) 11.0 L [place] % (Auto) 7.3 Eos % (Auto) 1.5 Baso % (Auto) 0.5 Lymph # (Auto) 0.9 L [place] # (Auto) 0.6 Eos # (Auto) 0.1 Baso # (Auto) 0.0 Abs Immat Gran (auto) 0.04 H Absolute Neuts (auto) 6.8 Absolute Nucleated RBC 0.000 Nucleated RBC % (auto) 0.0 Anion Gap 16 Estim Creat Clear Calc 151.1 Estimated GFR > 60 POC Glucose 284 H Fasting Glucose 263 H D Calcium 8.1 L D Total Bilirubin 2.4 H AST 17 ALT 17 Alkaline Phosphatase 78 D B-Natriuretic Peptide Total Protein 6.6 Albumin 3.4 L COVID-19 (CHRISTI) COVID-19 Clin Com 12/14/21 12/14/21 07:39 13:41 MCV MCH MCHC RDW Plt Count MPV Immature Gran % (Auto) Neut % (Auto) Lymph % (Auto) [place] % (Auto) Eos % (Auto) Baso % (Auto) Lymph # (Auto) [place] # (Auto) Eos # (Auto) Baso # (Auto) Abs Immat Gran (auto) Absolute Neuts (auto) Absolute Nucleated RBC Nucleated RBC % (auto) Anion Gap Estim Creat Clear Calc Estimated GFR POC Glucose 240 H 237 H Fasting Glucose Calcium Total Bilirubin AST ALT Alkaline Phosphatase B-Natriuretic Peptide Total Protein Albumin COVID-19 (CHRISTI) COVID-19 Clin Com Assessment and Plan (1) Alcohol withdrawal: Status: Acute (2) A-fib: Status: Acute (3) Diabetes: Status: Acute (4) CHF (congestive heart failure): Status: Acute Plan 61-year-old male with known alcohol abuse presents with neuropathic pain however developed withdrawal symptoms while in emergency room. He presented w ith atrial fibrillation with rapid ventricular response to responded to Cardizem 1.Alcohol withdrawal... doing well with phenobarb - phenobarb protocol - observe on CIWA scale - care team consult in a.m. 2.Atrial fibrillation with rapid ventricular response - BNP flat. . . Continue volume repletion until taking acceptable p.o. -continue metoprolol at outpatient dosing 3.DMII - continue outpatient Lantus dosing - continue metformin - lispro correctional scale 4.Chronic systolic heart failure - last documented echo 08/29/2020. . . LVEF 10-15% - caution with fluids - controlled ventricular rate ( beta blockade /phenobarb protocol) full code Lovenox Requires ongoing hospitalization to complete phenobarb protocol for alcohol withdrawal. Require supplemental IV fluids until taking adequate p.o. Quality Stroke Does the patient have a stroke diagnosis?: No VTE Prior VTE?: No VTE Risk Level:: Medical - moderate - high VTE Device Contraindication: Treatment Not Indicated VTE Drug Contraindication: N/A - Med Ordered
[2021-12-14] MEDS: 0.9 % Sodium Chloride 1,000 ML 100 ML IVCONT (15:45)
--- NOTE | 2021-12-14 17:53 | PC.NURSE ---
PT HAS BEEN RESTING COMFORTABLY THROUGHOUT SHIFT. NO COMPLAINTS OFFERED, SUPP O2 IN PLACE WHEN PT IS SLEEPING. PT AWARE OF PLAN OF CARE. SCORING LOW ON CIWA SCALE. REPORT GIVEN TO [facility] RN. AWAITING TRANSPORT.
[2021-12-14] MEDS: Enoxaparin Sodium 40 MG/0.4 ML SYRINGE SUBCUT (18:45)
[2021-12-14 18:46] LABS: Glucose, Whole Blood 259 mg/dL (60-115)
[2021-12-14 22:52] LABS: Glucose, Whole Blood 228 mg/dL (60-115)
[2021-12-14] MEDS: Acetaminophen 325 MG TABLET 650 MG PO (23:04)
[2021-12-14] MEDS: Insulin Glargine,Hum.rec.anlog 100 UNIT/ML 10 ML VIAL 10 UNIT SUBCUT (23:06)
[2021-12-15] MEDS: 0.9 % Sodium Chloride 1,000 ML 100 ML IVCONT (00:40)
[2021-12-15 03:16] VITALS: BP 121/56; PULSE 96; RESP 20; TEMP 36.9; O2SAT 95
[2021-12-15 06:33] LABS: MANUAL DIFF FLAG NO
[2021-12-15 06:35] LABS: Basophils Percent Auto 0.2 % (0-2); Eosinophils Absolute Auto 0.2 X10*3/uL (0.0-0.4); Eosinophils Percent Auto 2.4 % (0-4); Hematocrit 30.7 % (42.0-52.0); Hemoglobin 10.3 g/dl (14.0-18.0); Imm Gran Abs Auto 0.02 X10*3/uL (0.00-0.03); Imm Gran Pct Auto 0.3 % (0.0-0.4); Lymphocytes Absolute Auto 1.1 X10*3/uL (1.2-4.9); Lymphocytes Percent Auto 16.9 % (20-40); Mean Corpuscular HGB Conc 33.6 g/dl (31.0-36.0); Mean Corpuscular Hemoglobin 31.9 pg (27.0-33.0); Mean Platelet Volume 10.3 fL (9.4-12.4); Monocytes Absolute Auto 0.5 X10*3/uL (0.1-1.2); Monocytes Percent Auto 7.6 % (2-11); Neutrophils Absolute Auto 4.6 x10*3/uL (2.0-8.3); Neutrophils Percent Auto 72.6 % (45-73); Platelet Count 113 X10*3/uL (160-400); Red Blood Count 3.23 X10*6/uL (4.60-5.80); Red Cell Distribution Width 13.8 % (11.0-16.0); White Blood Count 6.3 X10*3/uL (4.8-10.8)
[2021-12-15 07:19] LABS: Alanine Aminotransferase 14 U/L (0-40); Albumin Level 3.1 g/dL (3.5-5.0); Alkaline Phosphatase 69 U/L (39-117); Anion Gap 11 (12-20); Aspartate Amino Transferase 14 U/L (5-37); Bilirubin Total 1.8 mg/dL (0.0-1.0); Blood Urea Nitrogen 12 mg/dL (9-16); Calcium 7.9 mg/dL (8.4-10.2); Carbon Dioxide 29 mmol/L (22-29); Chloride 100 mmol/L (96-108); Estimated Glomerular Filt Rate > 60; Glucose Fasting 231 mg/dL (60-99); Potassium 3.2 mmol/L (3.3-5.1); Sodium 137 mmol/L (135-145)
[2021-12-15 07:34] VITALS: BP 164/80; PULSE 95; RESP 24; TEMP 37.2; O2SAT 97
[2021-12-15] MEDS: PHENobarbitaL 30 MG TABLET 60 MG PO ×2 (09:21→21:02)
[2021-12-15] MEDS: Metoprolol Tartrate 25 MG TABLET PO ×2 (09:22→21:03)
[2021-12-15] MEDS: 0.9 % Sodium Chloride Flush 3 ML SYRINGE IVFLUSH ×2 (09:24→15:27)
[2021-12-15 09:31] LABS: Glucose, Whole Blood 278 mg/dL (60-115)
[2021-12-15] MEDS: Insulin Lispro 100 UNIT/ML 3 ML VIAL SUBCUT ×4 (09:31→21:03)
[2021-12-15 11:45] VITALS: BP 135/80; PULSE 96; RESP 22; TEMP 36.6; O2SAT 95
[2021-12-15 11:49] LABS: Glucose, Whole Blood 276 mg/dL (60-115)
--- NOTE | 2021-12-15 15:08 | P.PNIM_ITS ---
Subjective Subjective Date of Service: 12/15/21 Interval History: doing well with phenobarb protocol.... no seizures Review of Systems ( staff interpreter ) Denies chest pain Denies shortness of breath Denies nausea vomiting diarrhea Denies fever chil Physical Exam Vital Signs: Vital Signs: Last Vital Signs Temp 97.9 F 12/15/21 11:45 Pulse 96 12/15/21 11:45 Resp 22 H 12/15/21 11:45 BP 135/80 12/15/21 11:45 Pulse Ox 95 12/15/21 11:45 O2 Del Method 12/15/21 11:45 O2 Flow Rate 2 12/15/21 07:34 BMI result Body Mass Index 37.3 Const: Other: alert, tremulous Resp: Other: clear to auscultation bilaterally no rales rhonchi or wheezes Cardio: Other: no S4; positive S1-S2; no S3 murmurs rubs or gallops. Irregularly irregular GI: Other: soft with positive bowel sounds Extrem: Other: no edema Objective Data Active Medications Acetaminophen (Acetaminophen 325 Mg Tablet) 650 mg PO Q6H PRN PRN Reason: Pain, Mild (Pain Scale 1-3) Last Admin: 12/14/21 23:04 Dose: 650 mg Documented By: EMEKA Enoxaparin Sodium (Enoxaparin Sodium 40 Mg/0.4 Ml Syringe) 40 mg SUBCUT Q24H [facility] Last Admin: 12/14/21 18:45 Dose: 40 mg Documented By: LUL Sodium Chloride (Ns) 1,000 mls @ 100 mls/hr IVCONT .Q10H [facility] Last Admin: 12/15/21 12:04 Dose: Not Given Documented By: TYLER Non-Admin Reason: IV Running Insulin Glargine (Insulin Glargine,Hum.Rec.Anlog 100 Unit/Ml 10 Ml Vial) 10 unit SUBCUT BEDTIME [facility] Last Admin: 12/14/21 23:06 Dose: 10 unit Documented By: EMEKA Insulin Human Lispro (Insulin Lispro 100 Unit/Ml 3 Ml Vial) 0 unit SUBCUT QIDACHS [facility]; Protocol Last Admin: 12/15/21 11:53 Dose: 6 unit Documented By: JAMAAL Metoprolol Tartrate (Metoprolol Tartrate 25 Mg Tablet) 25 mg PO BID [facility]; Protocol Last Admin: 12/15/21 09:22 Dose: 25 mg Documented By: JAMAAL Ondansetron HCl (Ondansetron Hcl 4 Mg/2 Ml Vial) 4 mg IVPUSH Q8H PRN PRN Reason: Nausea and Vomiting Pharmacy Consult (Consult Rx Etoh Phenob Im/Po) 1 each MISCELLANE ONCE PRN; Protocol PRN Reason: Consult order Pharmacy Consult (Consult Rx Perform Med Rec) 1 each MISCELLANE ONCE PRN PRN Reason: Consult order Phenobarbital (Phenobarbital 30 Mg Tablet) 60 mg PO BID [facility] Stop: 12/15/21 21:01 Last Admin: 12/15/21 09:21 Dose: 60 mg Documented By: JAMAAL Phenobarbital (Phenobarbital 30 Mg Tablet) 30 mg PO BID [facility] Stop: 12/17/21 21:01 Phenobarbital (Phenobarbital 30 Mg Tablet) 30 mg PO DAILY [facility] Stop: 12/19/21 09:01 Sodium Chloride (0.9 % Sodium Chloride Flush 3 Ml Syringe) 3 ml IVFLUSH QSHIFT [facility] Last Admin: 12/15/21 09:24 Dose: 3 ml Documented By: JAMAAL Labs CBC & Chem 7: 12/15/21 06:23 12/15/21 06:23 Labs: Laboratory Results - last 24 hr 12/14/21 12/14/21 12/15/21 18:41 22:32 06:23 MCV 95.0 MCH 31.9 MCHC 33.6 RDW 13.8 Plt Count 113 L MPV 10.3 Immature Gran % (Auto) 0.3 Neut % (Auto) 72.6 Lymph % (Auto) 16.9 L [place] % (Auto) 7.6 Eos % (Auto) 2.4 Baso % (Auto) 0.2 Lymph # (Auto) 1.1 L [place] # (Auto) 0.5 Eos # (Auto) 0.2 Baso # (Auto) 0.0 Abs Immat Gran (auto) 0.02 Absolute Neuts (auto) 4.6 Absolute Nucleated RBC 0.000 Nucleated RBC % (auto) 0.0 Anion Gap Estim Creat Clear Calc Estimated GFR POC Glucose 259 H 228 H Fasting Glucose Calcium Total Bilirubin AST ALT Alkaline Phosphatase Total Protein Albumin 12/15/21 12/15/21 12/15/21 06:23 09:27 11:44 MCV MCH MCHC RDW Plt Count MPV Immature Gran % (Auto) Neut % (Auto) Lymph % (Auto) [place] % (Auto) Eos % (Auto) Baso % (Auto) Lymph # (Auto) [place] # (Auto) Eos # (Auto) Baso # (Auto) Abs Immat Gran (auto) Absolute Neuts (auto) Absolute Nucleated RBC Nucleated RBC % (auto) Anion Gap 11 L Estim Creat Clear Calc 165.0 Estimated GFR > 60 POC Glucose 278 H 276 H Fasting Glucose 231 H Calcium 7.9 L Total Bilirubin 1.8 H AST 14 ALT 14 Alkaline Phosphatase 69 Total Protein 6.0 L Albumin 3.1 L Assessment and Plan (1) Alcohol withdrawal: Status: Acute (2) A-fib: Status: Acute (3) Diabetes: Status: Acute Plan 61-year-old male with known alcohol abuse presents with neuropathic pain however developed withdrawal symptoms while in emergency room. He presented with atrial fibrillation with rapid ventricular response to responded to Cardizem 1.Alcohol withdrawal... doing well with phenobarb - phenobarb protocol - observe on CIWA scale - care team consult in a.m. 2.Atrial fibrillation with rapid ventricular response - BNP flat. . . Continue volume repletion until taking acceptable p.o. -continue metoprolol at outpatient dosing 3.DMII - continue outpatient Lantus dosing - continue metformin - lispro correctional scale 4.Chronic systolic heart failure - last documented echo 08/29/2020. . . LVEF 10-15% - caution with fluids - controlled ventricular rate ( beta blockade /phenobarb protocol) full code Lovenox Requires ongoing hospitalization to complete phenobarb protocol for alcohol withdrawal. Require supplemental IV fluids until taking adequate p.o. Quality Stroke Does the patient have a stroke diagnosis?: No VTE Prior VTE?: No VTE Risk Level:: Medical - moderate - high VTE Device Contraindication: Treatment Not Indicated VTE Drug Contraindication: N/A - Med Ordered
[2021-12-15 15:15] VITALS: BP 154/80; PULSE 108; RESP 19; TEMP 36.9; O2SAT 97
[2021-12-15] MEDS: Furosemide 40 MG TABLET PO (15:27)
[2021-12-15 16:04] LABS: Glucose, Whole Blood 176 mg/dL (60-115)
[2021-12-15] MEDS: Potassium Chloride Packet 20 MEQ PACKET 40 MEQ PO ×2 (16:04→21:02)
[2021-12-15] MEDS: metFORMIN HCl 1,000 MG TABLET 1000 MG PO (16:55)
[2021-12-15] MEDS: Enoxaparin Sodium 40 MG/0.4 ML SYRINGE SUBCUT (18:46)
[2021-12-15 19:15] VITALS: BP 144/95; PULSE 122; RESP 18; TEMP 36.8; O2SAT 96
[2021-12-15 20:22] LABS: Glucose, Whole Blood 229 mg/dL (60-115)
[2021-12-15] MEDS: Apixaban 5 MG TABLET PO (21:03)
[2021-12-15] MEDS: Gabapentin 400 MG CAPSULE PO (21:03)
[2021-12-15] MEDS: Atorvastatin Calcium 40 MG TABLET PO (21:03)
[2021-12-15] MEDS: Insulin Glargine,Hum.rec.anlog 100 UNIT/ML 10 ML VIAL 15 UNIT SUBCUT (21:04)
[2021-12-15 23:41] VITALS: BP 153/88; PULSE 100; RESP 19; TEMP 36.6; O2SAT 97
[2021-12-16] VITALS (7 sets, daily range): BP systolic 113–140; BP diastolic 62–85; PULSE 82–107; RESP 18–20; TEMP 36–37.2; O2SAT 96–99
[2021-12-16 07:07] LABS: MANUAL DIFF FLAG NO
[2021-12-16 07:14] LABS: Basophils Percent Auto 0.4 % (0-2); Eosinophils Absolute Auto 0.2 X10*3/uL (0.0-0.4); Eosinophils Percent Auto 2.6 % (0-4); Hematocrit 32.6 % (42.0-52.0); Hemoglobin 10.6 g/dl (14.0-18.0); Imm Gran Abs Auto 0.04 X10*3/uL (0.00-0.03); Imm Gran Pct Auto 0.5 % (0.0-0.4); Lymphocytes Percent Auto 14.2 % (20-40); Mean Corpuscular HGB Conc 32.5 g/dl (31.0-36.0); Mean Corpuscular Hemoglobin 31.6 pg (27.0-33.0); Mean Corpuscular Volume 97.3 fL (80.0-98.0); Mean Platelet Volume 10.5 fL (9.4-12.4); Monocytes Absolute Auto 0.6 X10*3/uL (0.1-1.2); Monocytes Percent Auto 8.1 % (2-11); Neutrophils Absolute Auto 5.4 x10*3/uL (2.0-8.3); Neutrophils Percent Auto 74.2 % (45-73); Platelet Count 140 X10*3/uL (160-400); Red Blood Count 3.35 X10*6/uL (4.60-5.80); Red Cell Distribution Width 13.9 % (11.0-16.0); White Blood Count 7.3 X10*3/uL (4.8-10.8)
[2021-12-16 07:47] LABS: Alanine Aminotransferase 13 U/L (0-40); Albumin Level 3.1 g/dL (3.5-5.0); Alkaline Phosphatase 71 U/L (39-117); Anion Gap 15 (12-20); Aspartate Amino Transferase 18 U/L (5-37); Bilirubin Total 0.8 mg/dL (0.0-1.0); Blood Urea Nitrogen 11 mg/dL (9-16); Calcium 7.9 mg/dL (8.4-10.2); Carbon Dioxide 24 mmol/L (22-29); Chloride 103 mmol/L (96-108); Creatinine Clr Calc Pharmacy 175.8; Estimated Glomerular Filt Rate > 60; Glucose Fasting 161 mg/dL (60-99); Sodium 138 mmol/L (135-145); Total Protein 6.1 g/dL (6.5-8.0)
[2021-12-16 07:57] LABS: Glucose, Whole Blood 158 mg/dL (60-115)
[2021-12-16] MEDS: Insulin Lispro 100 UNIT/ML 3 ML VIAL SUBCUT ×3 (08:08→16:46)
[2021-12-16] MEDS: Gabapentin 400 MG CAPSULE PO ×3 (08:09→21:03)
[2021-12-16] MEDS: Metoprolol Tartrate 25 MG TABLET PO ×3 (08:09→21:05)
[2021-12-16] MEDS: metFORMIN HCl 1,000 MG TABLET 1000 MG PO ×2 (08:09→16:46)
[2021-12-16] MEDS: PHENobarbitaL 30 MG TABLET PO ×2 (08:10→21:04)
[2021-12-16] MEDS: Furosemide 40 MG TABLET PO ×2 (08:10→16:46)
[2021-12-16] MEDS: Apixaban 5 MG TABLET PO ×2 (08:10→21:05)
[2021-12-16] MEDS: lisinopriL 2.5 MG TABLET PO (08:10)
[2021-12-16] MEDS: Aspirin Enteric Coated 81 MG TABLET.DR PO (08:10)
[2021-12-16 11:21] LABS: Glucose, Whole Blood 198 mg/dL (60-115)
--- NOTE | 2021-12-16 12:58 | HO.PM.IMPN ---
Subjective Subjective Date of Service: 12/16/21 Interval History: still tremulous but no overt seizures. 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 Irregularly irregular GI: Other: soft with positive bowel sounds Extrem: Other: no edema Objective Data Active Medications Acetaminophen (Acetaminophen 325 Mg Tablet) 650 mg PO Q6H PRN PRN Reason: Pain, Mild (Pain Scale 1-3) Last Admin: 12/14/21 23:04 Dose: 650 mg Documented By: EMEKA Apixaban (Apixaban 5 Mg Tablet) 5 mg PO BID [facility] Last Admin: 12/16/21 08:10 Dose: 5 mg Documented By: ELYSE Aspirin (Aspirin Enteric Coated 81 Mg Tablet.Dr) 81 mg PO DAILY [facility] Last Admin: 12/16/21 08:10 Dose: 81 mg Documented By: ELYSE Atorvastatin Calcium (Atorvastatin Calcium 40 Mg Tablet) 40 mg PO BEDTIME [facility] Last Admin: 12/15/21 21:03 Dose: 40 mg Documented By: SEAN Enoxaparin Sodium (Enoxaparin Sodium 40 Mg/0.4 Ml Syringe) 40 mg SUBCUT Q24H [facility] Last Admin: 12/15/21 18:46 Dose: 40 mg Documented By: LILLIAM Furosemide (Furosemide 40 Mg Tablet) 40 mg PO BIDWM [facility]; Protocol Last Admin: 12/16/21 08:10 Dose: 40 mg Documented By: ELYSE Gabapentin (Gabapentin 400 Mg Capsule) 400 mg PO TID [facility] Last Admin: 12/16/21 08:09 Dose: 400 mg Documented By: ELYSE Insulin Glargine (Insulin Glargine,Hum.Rec.Anlog 100 Unit/Ml 10 Ml Vial) 15 unit SUBCUT BEDTIME [facility] Last Admin: 12/15/21 21:04 Dose: 15 unit Documented By: SEAN Insulin Human Lispro (Insulin Lispro 100 Unit/Ml 3 Ml Vial) 0 unit SUBCUT QIDACHS [facility]; Protocol Last Admin: 12/16/21 11:38 Dose: 2 unit Documented By: ELYSE Lisinopril (Lisinopril 2.5 Mg Tablet) 2.5 mg PO DAILY [facility]; Protocol Last Admin: 12/16/21 08:10 Dose: 2.5 mg Documented By: ELYSE Metformin HCl (Metformin Hcl 1,000 Mg Tablet) 1,000 mg PO BIDWM [facility] Last Admin: 12/16/21 08:09 Dose: 1,000 mg Documented By: ELYSE Metoprolol Tartrate (Metoprolol Tartrate 25 Mg Tablet) 25 mg PO BID [facility]; Protocol Last Admin: 12/16/21 08:09 Dose: 25 mg Documented By: ELYSE Metoprolol Tartrate (Metoprolol Tartrate 25 Mg Tablet) 25 mg PO BID [facility]; Protocol Last Admin: 12/16/21 08:09 Dose: Not Given Documented By: ELYSE Non-Admin Reason: Duplicate Order Ondansetron HCl (Ondansetron Hcl 4 Mg/2 Ml Vial) 4 mg IVPUSH Q8H PRN PRN Reason: Nausea and Vomiting Pharmacy Consult (Consult Rx Etoh Phenob Im/Po) 1 each MISCELLANE ONCE PRN; Protocol PRN Reason: Consult order Pharmacy Consult (Consult Rx Perform Med Rec) 1 each MISCELLANE ONCE PRN PRN Reason: Consult order Phenobarbital (Phenobarbital 30 Mg Tablet) 30 mg PO BID [facility] Stop: 12/17/21 21:01 Last Admin: 12/16/21 08:10 Dose: 30 mg Documented By: ELYSE Phenobarbital (Phenobarbital 30 Mg Tablet) 30 mg PO DAILY [facility] Stop: 12/19/21 09:01 Sodium Chloride (0.9 % Sodium Chloride Flush 3 Ml Syringe) 3 ml IVFLUSH QSHIFT [facility] Last Admin: 12/16/21 08:22 Dose: Not Given Documented By: ELYSE Non-Admin Reason: No Access Labs CBC & Chem 7: 12/16/21 06:42 12/16/21 06:42 Labs: Laboratory Results - last 24 hr 12/15/21 12/15/21 12/16/21 16:00 20:17 06:42 MCV 97.3 MCH 31.6 MCHC 32.5 RDW 13.9 Plt Count 140 L MPV 10.5 Immature Gran % (Auto) 0.5 H Neut % (Auto) 74.2 H Lymph % (Auto) 14.2 L [place] % (Auto) 8.1 Eos % (Auto) 2.6 Baso % (Auto) 0.4 Lymph # (Auto) 1.0 L [place] # (Auto) 0.6 Eos # (Auto) 0.2 Baso # (Auto) 0.0 Abs Immat Gran (auto) 0.04 H Absolute Neuts (auto) 5.4 Absolute Nucleated RBC 0.000 Nucleated RBC % (auto) 0.0 Anion Gap Estim Creat Clear Calc Estimated GFR POC Glucose 176 H 229 H Fasting Glucose Calcium Total Bilirubin AST ALT Alkaline Phosphatase Total Protein Albumin 12/16/21 12/16/21 12/16/21 06:42 07:53 11:12 MCV MCH MCHC RDW Plt Count MPV Immature Gran % (Auto) Neut % (Auto) Lymph % (Auto) [place] % (Auto) Eos % (Auto) Baso % (Auto) Lymph # (Auto) [place] # (Auto) Eos # (Auto) Baso # (Auto) Abs Immat Gran (auto) Absolute Neuts (auto) Absolute Nucleated RBC Nucleated RBC % (auto) Anion Gap 15 Estim Creat Clear Calc 175.8 Estimated GFR > 60 POC Glucose 158 H 198 H Fasting Glucose 161 H Calcium 7.9 L Total Bilirubin 0.8 AST 18 ALT 13 Alkaline Phosphatase 71 Total Protein 6.1 L Albumin 3.1 L Assessment and Plan (1) Alcohol withdrawal: Status: Acute (2) A-fib: Status: Acute (3) Diabetes: Status: Acute (4) CAD (coronary artery disease): Status: Acute Plan 61-year-old male with known alcohol abuse presents with neuropathic pain however developed withdrawal symptoms while in emergency room. He presented with atrial fibrillation with rapid ventricular response to responded to Cardizem 1.Alcohol withdrawal... doing well with phenobarb - phenobarb protocol.... reassess for discharge in a.m. - observe on CIWA scale - care team consult in a.m. 2.Atrial fibrillation - rate controlled adequate -continue metoprolol at outpatient dosing 3.DMII - continue outpatient Lantus dosing - continue metformin - lispro correctional scale 4.Chronic systolic heart failure - last documented echo 08/29/2020. . . LVEF 10-15% - caution with fluids - controlled ventricular rate ( beta blockade /phenobarb protocol) full code Lovenox Requires ongoing hospitalization to complete phenobarb protocol for alcohol withdrawal. Require supplemental IV fluids until taking adequate p.o. Quality Stroke Does the patient have a stroke diagnosis?: No VTE Prior VTE?: No VTE Risk Level:: Medical - moderate - high VTE Device Contraindication: Treatment Not Indicated VTE Drug Contraindication: N/A - Med Ordered
[2021-12-16] MEDS: 0.9 % Sodium Chloride Flush 3 ML SYRINGE IVFLUSH ×2 (15:02→21:07)
[2021-12-16 16:15] LABS: Glucose, Whole Blood 180 mg/dL (60-115)
[2021-12-16] MEDS: Enoxaparin Sodium 40 MG/0.4 ML SYRINGE SUBCUT (16:46)
[2021-12-16 19:53] LABS: Glucose, Whole Blood 124 mg/dL (60-115)
[2021-12-16] MEDS: Atorvastatin Calcium 40 MG TABLET PO (21:03)
[2021-12-16] MEDS: Insulin Glargine,Hum.rec.anlog 100 UNIT/ML 10 ML VIAL 15 UNIT SUBCUT (21:04)
[2021-12-17 03:14] VITALS: BP 125/87; PULSE 92; RESP 18; TEMP 36.7; O2SAT 98
[2021-12-17 07:46] VITALS: BP 126/73; PULSE 98; RESP 16; TEMP 36; O2SAT 99
[2021-12-17 07:55] LABS: Glucose, Whole Blood 198 mg/dL (60-115)
[2021-12-17] MEDS: lisinopriL 2.5 MG TABLET PO (08:31)
[2021-12-17] MEDS: PHENobarbitaL 30 MG TABLET PO (08:31)
[2021-12-17] MEDS: metFORMIN HCl 1,000 MG TABLET 1000 MG PO (08:31)
[2021-12-17] MEDS: Metoprolol Tartrate 25 MG TABLET PO ×2 (08:31)
[2021-12-17] MEDS: Furosemide 40 MG TABLET PO (08:32)
[2021-12-17] MEDS: Aspirin Enteric Coated 81 MG TABLET.DR PO (08:32)
[2021-12-17] MEDS: Gabapentin 400 MG CAPSULE PO ×2 (08:32→15:14)
[2021-12-17] MEDS: Apixaban 5 MG TABLET PO (08:32)
[2021-12-17] MEDS: Insulin Lispro 100 UNIT/ML 3 ML VIAL SUBCUT ×2 (08:32→12:21)
[2021-12-17] MEDS: 0.9 % Sodium Chloride Flush 3 ML SYRINGE IVFLUSH ×2 (08:33→15:14)
--- NOTE | 2021-12-17 09:47 | MHC.CM.PN ---
Male 61 DX ETOH W/D CIWA Zero today. Care team to see patient prior to discharge. DP home with resources provided be the care team.
[2021-12-17 11:27] VITALS: BP 129/75; PULSE 93; RESP 17; TEMP 36.2; O2SAT 94
[2021-12-17 11:33] LABS: Glucose, Whole Blood 171 mg/dL (60-115)
[2021-12-17 14:49] VITALS: BP 128/74; PULSE 93; RESP 18; TEMP 36.2; O2SAT 98
--- NOTE | 2021-12-17 15:55 | PM.DS ---
DS: Providers Provider Date of Service: 12/17/21 Date of admission: 12/13/21 18:18 Date of discharge: 12/17/21 Primary care physician: Unknown Physician Consults: 12/17/21 07:53 Consult to Care Team Stat Comment: Reason for consultation: etOh ABUSE DS: Diagnosis Discharge Diagnosis (1) Alcohol withdrawal: Status: Acute (2) A-fib: Status: Acute (3) Diabetes: Status: Acute (4) CAD (coronary artery disease): Status: Acute DS: Summary Hospital Course Hospital Course: 61-year-old male with known history of alcohol abuse presented to the emergency room for evaluation of lower extremity leg pain secondary to chronic neuropathy.? He was found to be intoxicated and in atrial fibrillation with a rapid ventricular response.? He was given oral Cardizem; chest x-ray suspicious for CHF and he did receive Lasix 80 mg x 1.? As the day progressed, he began to exhibit elevated CIWA scores treated with oral Ativan however needed IV Versed.? At this point in time he is actively withdrawing has been started on the phenobarb protocol. Hospital Course Uneventful detox on phenobarb protocol. Will be discharged to home to resume all pre-hospital medications and follow up with PCP in 2 weeks Time Spent with Patient Time attestation: Total time spent providing and/or coordinating discharge services: Discharge coordination time: Greater than 30 minutes Quality: Safe Use of Opioids Does Pt have an Active Cancer Diagnosis on the Problem List?: No Quality: Stroke Does the patient have a stroke diagnosis?: No Physical Exam Vital Signs: Vital Signs: Last Vital Signs Temp 97.2 F 12/17/21 14:49 Pulse 93 12/17/21 14:49 Resp 18 12/17/21 14:49 BP 128/74 12/17/21 14:49 Pulse Ox 98 12/17/21 14:49 O2 Del Method 12/17/21 14:49 O2 Flow Rate 1 12/17/21 11:27 BMI result Body Mass Index 37.3 Const: Other: alert, tremulous Resp: Other: clear to auscultation bilaterally no rales rhonchi or wheezes Cardio: Other: no S4; positive S1-S2; no S3 murmurs rubs or gallops. Irregularly irregular GI: Other: soft with positive bowel sounds Extrem: Other: no edema DS: Data Data Completed and Pending Completed studies during hospitalization [Text1]: Procedures Detoxification Services for Substance Abuse Treatment (10/26/21) Labs on day of discharge: Laboratory Results - last 24 hr 12/16/21 12/16/21 12/17/21 16:09 19:48 07:52 POC Glucose 180 H 124 H 198 H 12/17/21 11:29 POC Glucose 171 H Discharge Plan Discharge Patient Disposition: Home, Self-Care Discharge Diagnosis: alcohol withdrawal Referrals: Physician,Unknown J [Primary Care Provider] - 1 Week Discharge Medications: Continued atorvastatin 40 mg tablet 1 tab PO BEDTIME gabapentin 400 mg capsule 1 cap PO TID metformin 1,000 mg tablet 1 tab PO BIDWM aspirin 81 mg Tablet,Delayed Release (Dr/Ec) 81 mg PO DAILY Qty: 30 0RF metoprolol tartrate 25 mg tablet 1 tab PO BID insulin glargine [Lantus U-100 Insulin] 100 unit/mL solution 15 unit subcut BEDTIME furosemide [Lasix] 40 mg tablet 40 mg PO BIDWM lisinopril 2.5 mg tablet 1 tab PO DAILY Eliquis 5 mg tablet 1 tab PO BID Discharge Orders: Discharge Order (Routine); Ordered 12/17/21 Ordered By: Filemon Corona Diet: Advance to usual diet Activity on Discharge: As tolerated Stand Alone Forms: Patient Portal Discharge page Care Plan Goals: avoid alcohol Health Concerns: continue all medications Plan of Treatment: follow-up with PCP 2 weeks Assessment: see discharge summary Patient Instructions: Pulmonary Edema (ED)
[2021-12-17 16:03] LABS: Glucose, Whole Blood 151 mg/dL (60-115)
--- NOTE | 2021-12-17 16:19 | MHC.CM.PN ---
IMM 12/17/21 Male 61 DX ETOH W/D Patient is discharged today. The Recovery team has provided community resource information. Patient is discharged to a rented room on [facility]. A [employer] bus Pass was provided for transportation.
== END 2021-12-17 17:07 | disposition home or self-care (01) | DRG 309 ==
LOC: HO.ED 17:05 → HO.EDOVER 18:29 → HO.IMC 12-14 17:30
PROVIDERS: Emergency Medicine; Admitting Provider Hospitalist; Emergency Provider Emergency Medicine Emergency Medical Services; PCP Family Medicine; Visit Provider Hospitalist
DX: I48.91 Unspecified atrial fibrillation (principal); F10.239 Alcohol dependence with withdrawal, unspecified; I50.22 Chronic systolic (congestive) heart failure; I11.0 Hypertensive heart disease with heart failure; F10.229 Alcohol dependence with intoxication, unspecified; E11.42 Type 2 diabetes mellitus with diabetic polyneuropathy; I25.10 Atherosclerotic heart disease of native coronary artery without angina pectoris; Y90.6 Blood alcohol level of 120-199 mg/100 ml; Z20.822 Contact with and (suspected) exposure to COVID-19; Z88.0 Allergy status to penicillin; Z79.4 Long term (current) use of insulin; Z79.01 Long term (current) use of anticoagulants; Z79.82 Long term (current) use of aspirin; Z79.84 Long term (current) use of oral hypoglycemic drugs; Z79.899 Other long term (current) drug therapy
CPT/HCPCS: 36415; 71045; 80048; 80053; 82077; 82947; 83880; 84484; 85025; 85027; 87635; 93005; 94640; 96372; 96374; 96375; 96376; 99283; 99284; 99285; J1650; J1940; J2250; J2560

== ENCOUNTER 2021-12-21 21:27 | Emergency (ER) | payer MEDICARE, MEDICAID, SELFPAY ==
[2021-12-21 21:50] LABS: MANUAL DIFF FLAG NO
--- NOTE | 2021-12-21 21:52 | ED.CPR ---
HPI - CPR General Stated Complaint: cardiac arrest Time Seen by Provider: 12/21/21 21:41 Source: EMS Mode of arrival: EMS Limitations: other (Cardiac arrest, intubated) History of Present Illness HPI narrative: 61-year-old male who presents emergency department for evaluation VFib cardiac arrest. The paramedics state that they were called for an unresponsive patient. When they arrived at the scene the determined that patient has been drinking alcohol. There also 2 bags of heroin found at the scene. The patient is homeless and he was found outside. Patient seen frequently here in the emergency department usually for alcohol intoxication. In reviewing his record, the patient was last admitted on 12/13/2021 for new onset atrial fibrillation and alcohol withdrawal. The paramedics state that the initial rhythm was atrial fibrillation and the delivered 3 shocks and the patient became asystolic the patient received 5 rounds epinephrine and CPR prior to coming to the emergency department. He was intubated with a Dominic airway by the paramedics. Paramedics did not achieve ROSC. On presentation to the emergency department the patient had a Dominic airway and with bagging had symmetric breath sounds. His pupils were fixed and dilated. The patient did have bruising on his abdomen I believe this is secondary to insulin injections. In the emergency department we continued CPR and gave the patient 6 rounds of epinephrine through the intraosseous line. At each pulse check there was no pulse in the patient remained asystolic. At 21:44 hours the patient was pronounced . Past medical history significant for chronic alcohol use disorder, coronary disease, CHF with an ejection fraction of 15%, alcoholic cirrhosis, atrial fibrillation, coronary artery disease, depression, diabetes, hypertension. MD complaint: found unresponsive (Paramedics on the scene at 21:13 hours) and unknown Place: street (The patient is homeless) Bystander CPR performed: No AED applied by bystander/wet pan mixer: Yes (Ventricular fibrillation, paramedics deliver 3 shot) Shock advised: Yes Number of shocks delivered: 3 Initial findings in the field: unresponsive and VTACH/VFIB ROSC in the field: No Associated injuries: No Known history of: CAD and other (Alcohol use disorder) Treatments prior to arrival: intubation (Dominic airway), defibrillated shocks # (3) and epinephrine mgs # (5) Related Data Home Medications Medication Instructions Recorded Confirmed atorvastatin 40 mg tablet 1 tab PO BEDTIME 09/11/20 12/14/21 gabapentin 400 mg capsule 1 cap PO TID 09/11/20 12/14/21 metformin 1,000 mg tablet 1 tab PO BIDWM 09/11/20 12/14/21 insulin glargine 100 unit/mL 15 unit subcut BEDTIME 10/26/21 12/14/21 subcutaneous solution (Lantus U-100 Insulin) metoprolol tartrate 25 mg tablet 1 tab PO BID 10/26/21 12/14/21 furosemide 40 mg tablet (Lasix) 40 mg PO BIDWM 11/07/21 12/14/21 apixaban 5 mg tablet (Eliquis) 1 tab PO BID 12/14/21 12/14/21 lisinopril 2.5 mg tablet 1 tab PO DAILY 12/14/21 12/14/21 Previous Rx's Medication Instructions Recorded aspirin 81 mg tablet,delayed 81 mg PO DAILY #30 tabs 11/04/20 release Allergies Allergy/AdvReac Type Severity Reaction Status Date / Time Penicillins [PCN] Allergy Mild Rash Verified 12/14/21 10:17 Review of Systems Review of Systems: Yes Unobtainable due to mental status PMFSH Past Medical History Medical History A-fib Acute leg pain Acute on chronic combined systolic and diastolic congestive heart failure Alcohol intoxication Alcohol use disorder, severe, dependence Alcoholic intoxication Atrial fibrillation, rapid CAD (coronary artery disease) Cardiomyopathy CHF (congestive heart failure) CHF (congestive heart failure) Cirrhosis Depression Diabetes ETOH abuse HTN (hypertension) Hyperglycemia Family History Family History Other Diabetes Social History Social History Household Members: None Housing: Homeless Housing Other:: rents room Do you presently have visiting nurse or other home services: No Unable to assess alcohol history related to: Refusing to respond Alcohol intake: current Alcohol intake frequency: 3 or more drinks per day Alcohol type: beer and hard liquor Patient Tobacco Use Status: Never used Tobacco Tobacco use type: Cigarette Cigarettes Per Day: 2 Second Hand Smoke Exposure: No Advance Directives: Yes Advance Directives on File: Yes Advance Directives Date on File: 12/01/20 service: No Current occupational status: unemployed and disabled Physical Exam Const: Other: Morbidly obese male patient, intubated with a Dominic airway no spontaneous respiratory effort, no spontaneous moved HEENT: Other: Normal cephalic, atraumatic Eyes: Other: Pupils are fixed and dilated, not responsive to light reflex Neck: Other: No evidence of trauma Resp: Other: No spontaneous breathing/respiratory effort, breath sounds symmetric with bagging through the Dominic airway Cardio: Other: No heart sounds GI: Other: Obese, patient has bruising on his abdomen consistent with subcutaneous injections Neuro: Other: No spontaneous moved Extrem: Other: No trauma, intraosseous line left tibia Course Course Course Narrative: 61-year-old male who is well-known to the emergency department is seen here frequently for alcohol intoxication who was found unresponsive at outside (the patient is homeless), unknown down time. Paramedics found the patient to be unresponsive, initial rhythm was ventricular fibrillation, the patient was given 3 shot and became asystolic. He received a total of 5 rounds of epinephrine. The paramedics inserted a Dominic airway and intraosseous line. A presentation to the emergency department patient was asystolic with no palpable pulses. We continued CPR and gave the patient 6 rounds of epinephrine with no return of spontaneous circulation. The patient was pronounced at 21:44 hours. According to the paramedics, the patient was apparently drinking alcohol. Several bags of heroin was also found around the patient. I will discuss this patient's case with medical assisting instructor. [id number]: I did discuss the patient's case with the medical assisting instructor clin application specialist, Madie Bolton and she took jurisdiction over this case. The medical assisting instructor case #[id number]. The patient does have a brother who is next of kin, the patient often calls to pick the patient up from the emergency department however we do not have this number therefore the next of kin was not notified. There is a sister is well and we will try to contact her to inform her of the patient's . MDM - Cardiac Arrest/CPR Lab Data Result diagrams: 12/21/21 21:40 12/21/21 21:40 Labs: Lab Results 12/21/21 12/21/21 Range/Units 21:40 21:40 WBC 11.1 H (4.8-10.8) X10*3/uL RBC 3.77 L (4.60-5.80) X10*6/uL Hgb 11.7 L (14.0-18.0) g/dl Hct 38.8 L (42.0-52.0) % MCV 102.9 H D (80.0-98.0) fL MCH 31.0 (27.0-33.0) pg MCHC 30.2 L (31.0-36.0) g/dl RDW 13.9 (11.0-16.0) % Plt Count 229 D (160-400) X10*3/uL MPV 10.5 (9.4-12.4) fL Immature Gran % (Auto) 3.9 H (0.0-0.4) % Neut % (Auto) 44.8 L (45-73) % Lymph % (Auto) 37.6 (20-40) % Isabela % (Auto) 12.2 H (2-11) % Eos % (Auto) 1.0 (0-4) % Baso % (Auto) 0.5 (0-2) % Lymph # (Auto) 4.2 (1.2-4.9) X10*3/uL Isabela # (Auto) 1.4 H (0.1-1.2) X10*3/uL Eos # (Auto) 0.1 (0.0-0.4) X10*3/uL Baso # (Auto) 0.1 (0.0-0.2) X10*3/uL Abs Immat Gran (auto) 0.43 H (0.00-0.03) X10*3/uL Absolute Neuts (auto) 5.0 (2.0-8.3) x10*3/uL Absolute Nucleated RBC 0.110 H (0.0-0.012) X10*3/uL Nucleated RBC % (auto) 1.0 H (0.0-0.2) /100WBC Troponin I High Sens 66.4 H D (<3.5-35.0) ng/L Critical Care Time Critical Care Time Critical Care Time: Yes Total Critical Care Time: 40 Attestation: Critical Care: The patient was critically ill on presentation requiring CPR and ACLS management. I spent greater than 30 minutes of discontinuous time evaluating the patient,delivering critical care at the bedside, discussing and evaluating pertinent data. Critical care time does not include time spent performing separately billable procedures or teaching. Total time spent performing critical care was 40 minutes. 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
[2021-12-21 21:53] LABS: Basophils Absolute Auto 0.1 X10*3/uL (0.0-0.2); Basophils Percent Auto 0.5 % (0-2); Eosinophils Absolute Auto 0.1 X10*3/uL (0.0-0.4); Hematocrit 38.8 % (42.0-52.0); Hemoglobin 11.7 g/dl (14.0-18.0); Imm Gran Abs Auto 0.43 X10*3/uL (0.00-0.03); Imm Gran Pct Auto 3.9 % (0.0-0.4); Lymphocytes Absolute Auto 4.2 X10*3/uL (1.2-4.9); Lymphocytes Percent Auto 37.6 % (20-40); Mean Corpuscular HGB Conc 30.2 g/dl (31.0-36.0); Mean Corpuscular Volume 102.9 fL (80.0-98.0); Mean Platelet Volume 10.5 fL (9.4-12.4); Monocytes Absolute Auto 1.4 X10*3/uL (0.1-1.2); Monocytes Percent Auto 12.2 % (2-11); Neutrophils Percent Auto 44.8 % (45-73); Platelet Count 229 X10*3/uL (160-400); Red Blood Count 3.77 X10*6/uL (4.60-5.80); Red Cell Distribution Width 13.9 % (11.0-16.0); White Blood Count 11.1 X10*3/uL (4.8-10.8)
[2021-12-21 22:09] LABS: Troponin-I High Sensitivity 66.4 ng/L (<3.5-35.0)
--- NOTE | 2021-12-21 22:13 | PC.NURSE ---
[employer] donor [facility] called @[phone] ... declined. reference #[id number].
--- NOTE | 2021-12-21 22:40 | PC.NURSE ---
This US/Pct called the Instructional Resource Teacher at 2220 per ,Pt was accepted
--- NOTE | 2021-12-22 01:44 | PC.NURSE ---
refer to code sheet for full documentation of care provided to patient in ED.
[2021-12-24 06:59] LABS: Glucose, Whole Blood 314 mg/dL (60-115)
== END 2021-12-21 22:30 | disposition expired ==
PROVIDERS: Student in an Organized Health Care Education/Training Program; Emergency Provider Emergency Medicine Emergency Medical Services
DX: I46.9 Cardiac arrest, cause unspecified (principal); Z79.899 Other long term (current) drug therapy
CPT/HCPCS: 36415; 82947; 84484; 85025; 96374; 99281; 99285; J0171